=== PATIENT | female | born 1940 | race Caucasian/White ===

== ENCOUNTER → 2016-11-22 | Outpatient (CLI) | payer MEDICARE, BC ==
[2016-11-22 11:44] LABS: CH 30.7; CHCM 31.2; HCT 39.8 % (34.0-46.0); HDW 2.34; HGB 12.5 gm/dL (11.4-16.0); MCH 31.2 pg (25.0-35.0); MCHC 31.5 g/dL (31.0-37.0); MCV 98.9 fL (80.0-100.0); Mean Platelet Volume 7.9; RBC 4.02 m/uL (3.80-5.40); RDW 13.4 % (11.5-15.5); WBC 8.6 k/uL (3.8-10.6)
[2016-11-22 12:35] LABS: Calcium 9.4 mg/dL (8.4-10.2); Magnesium 2.1 mg/dL (1.6-2.3); Potassium 5.1 mmol/L (3.5-5.1); Uric Acid 6.7 mg/dL (3.7-7.4)
[2016-11-22 12:45] LABS: % Iron Saturation 28.1 % (20-50)
[2016-11-22 13:57] LABS: Appearance,Urine Clear (Clear); Bilirubin,Urine Negative (Negative); Glucose,Urine (UA) Negative (Negative); Ketones,Urine Negative (Negative); Leukocyte Esterase,Urine Negative (Negative); Nitrite,Urine Negative (Negative); Protein,Urine Negative (Negative); Specific Gravity,Urine 1.009 (1.001-1.035); UA Billing (MACRO vs. MICRO) CHEM; Urobilinogen,Urine <2.0 mg/dL (<2.0)
== END | disposition home or self-care (01) ==
LOC: LABT 10:59
PROVIDERS: ATTEND Nurse Practitioner Family
DX: N18.3 Chronic kidney disease, stage 3 (moderate) (principal); E21.3 Hyperparathyroidism, unspecified; E55.9 Vitamin D deficiency, unspecified; D64.9 Anemia, unspecified; N39.0 Urinary tract infection, site not specified; M10.9 Gout, unspecified
CPT/HCPCS: 36415; 80048; 81003; 82306; 82728; 83540; 83550; 83735; 83970; 84100; 84550; 85027; 85610

== ENCOUNTER → 2017-02-15 | Outpatient (CLI) | payer MEDICARE, BC ==
[2017-02-15 15:49] LABS: Appearance,Urine Clear (Clear); Bilirubin,Urine Negative (Negative); Glucose,Urine (UA) Negative (Negative); Ketones,Urine Negative (Negative); Leukocyte Esterase,Urine Negative (Negative); Nitrite,Urine Negative (Negative); Protein,Urine Negative (Negative); Specific Gravity,Urine 1.009 (1.001-1.035); UA Billing (MACRO vs. MICRO) CHEM; Urobilinogen,Urine <2.0 mg/dL (<2.0)
[2017-02-15 15:50] LABS: CH 30.5; CHCM 32.2; HCT 42.4 % (34.0-46.0); HDW 2.45; HGB 13.5 gm/dL (11.4-16.0); MCH 30.4 pg (25.0-35.0); MCHC 31.9 g/dL (31.0-37.0); MCV 95.3 fL (80.0-100.0); Mean Platelet Volume 6.8; RBC 4.45 m/uL (3.80-5.40); RDW 13.9 % (11.5-15.5); WBC 7.7 k/uL (3.8-10.6)
[2017-02-15 16:06] LABS: Calcium 9.4 mg/dL (8.4-10.2); Magnesium 2.4 mg/dL (1.6-2.3); Phosphorous 3.9 mg/dL (2.5-4.5); Potassium 4.9 mmol/L (3.5-5.1); Uric Acid 5.9 mg/dL (3.7-7.4)
== END | disposition home or self-care (01) ==
LOC: LABWHC1 15:21
PROVIDERS: ATTEND Nurse Practitioner Family
DX: N18.3 Chronic kidney disease, stage 3 (moderate) (principal); D64.9 Anemia, unspecified; E21.3 Hyperparathyroidism, unspecified; E55.9 Vitamin D deficiency, unspecified; N39.0 Urinary tract infection, site not specified; M10.9 Gout, unspecified
CPT/HCPCS: 36415; 80048; 81003; 82306; 82728; 83540; 83550; 83735; 83970; 84100; 84550; 85027

== ENCOUNTER → 2017-05-22 | Outpatient (CLI) | payer MEDICARE, BC ==
[2017-05-22 16:03] LABS: Appearance,Urine Clear (Clear); Bilirubin,Urine Negative (Negative); Glucose,Urine (UA) Negative (Negative); Ketones,Urine Negative (Negative); Leukocyte Esterase,Urine Trace (Negative); Mucus,Urine Rare /hpf; Nitrite,Urine Negative (Negative); Particle Count 1864; Protein,Urine Negative (Negative); RBC,Urine 1 /hpf (0-5); Specific Gravity,Urine 1.009 (1.001-1.035); Squamous Epithelial Cell,Urine 2 /hpf (0-4); UA Billing (MACRO vs. MICRO) MICRO; Urobilinogen,Urine <2.0 mg/dL (<2.0); WBC,Urine 1 /hpf (0-5)
[2017-05-22 16:05] LABS: CH 30.9; CHCM 32.1; HCT 38.2 % (34.0-46.0); HDW 2.29; HGB 12.3 gm/dL (11.4-16.0); MCH 31.1 pg (25.0-35.0); MCHC 32.2 g/dL (31.0-37.0); MCV 96.8 fL (80.0-100.0); Mean Platelet Volume 7.6; RBC 3.95 m/uL (3.80-5.40); RDW 14.6 % (11.5-15.5); WBC 6.7 k/uL (3.8-10.6)
[2017-05-22 16:15] LABS: Calcium 9.1 mg/dL (8.4-10.2); Magnesium 2.1 mg/dL (1.6-2.3); Phosphorous 3.6 mg/dL (2.5-4.5); Potassium 5.4 mmol/L (3.5-5.1); Uric Acid 7.1 mg/dL (3.7-7.4)
[2017-05-22 16:23] LABS: % Iron Saturation 25.3 % (20-50)
== END | disposition home or self-care (01) ==
LOC: LABWHC1 15:46
PROVIDERS: ATTEND Nurse Practitioner Family
DX: N18.3 Chronic kidney disease, stage 3 (moderate) (principal); D50.9 Iron deficiency anemia, unspecified; N25.81 Secondary hyperparathyroidism of renal origin; N39.0 Urinary tract infection, site not specified; M10.9 Gout, unspecified
CPT/HCPCS: 36415; 80048; 81001; 82306; 82728; 83540; 83550; 83735; 83970; 84100; 84550; 85027

== ENCOUNTER → 2017-09-04 | Outpatient (CLI) | payer MEDICARE, BC ==
[2017-09-04 16:06] LABS: CH 30.3; CHCM 30.5; HCT 38.7 % (34.0-46.0); HDW 2.21; Hypochromasia Slight; MCH 30.9 pg (25.0-35.0); MCHC 30.9 g/dL (31.0-37.0); MCV 99.7 fL (80.0-100.0); Macrocytosis Slight; Mean Platelet Volume 7.4; RBC 3.88 m/uL (3.80-5.40); RDW 14.9 % (11.5-15.5); WBC 8.6 k/uL (3.8-10.6)
[2017-09-04 16:14] LABS: Appearance,Urine Clear (Clear); Bacteria,Urine Occasional /hpf; Bilirubin,Urine Negative (Negative); Glucose,Urine (UA) Negative (Negative); Ketones,Urine Negative (Negative); Leukocyte Esterase,Urine Small (Negative); Mucus,Urine Rare /hpf; Nitrite,Urine Negative (Negative); Particle Count 1939; Protein,Urine Trace (Negative); RBC,Urine 1 /hpf (0-5); Specific Gravity,Urine 1.012 (1.001-1.035); Squamous Epithelial Cell,Urine 5 /hpf (0-4); UA Billing (MACRO vs. MICRO) MICRO; Urobilinogen,Urine <2.0 mg/dL (<2.0); WBC,Urine 2 /hpf (0-5)
[2017-09-04 16:22] LABS: Magnesium 2.2 mg/dL (1.6-2.3); Phosphorus 3.4 mg/dL (2.5-4.5); Potassium 5.2 mmol/L (3.5-5.1)
[2017-09-05 02:00] LABS: Iron Saturation 15.95 (12.00-45.00)
== END | disposition home or self-care (01) ==
LOC: LABWHC1 15:33
PROVIDERS: ATTEND Nurse Practitioner Family
DX: N39.0 Urinary tract infection, site not specified (principal); M10.9 Gout, unspecified; N18.3 Chronic kidney disease, stage 3 (moderate); D50.9 Iron deficiency anemia, unspecified; N25.81 Secondary hyperparathyroidism of renal origin; D63.1 Anemia in chronic kidney disease
CPT/HCPCS: 36415; 80048; 81001; 82306; 82728; 83540; 83550; 83735; 83970; 84100; 84550; 85027; 85610

== ENCOUNTER → 2018-01-28 | Outpatient (CLI) | payer MEDICARE, BC ==
[2018-01-28 12:20] LABS: Appearance,Urine Clear (Clear); Bilirubin,Urine Negative (Negative); Blood,Urine Negative (Negative); Color,Urine Light Yellow; Glucose,Urine (UA) Negative (Negative); Ketones,Urine Negative (Negative); Leukocyte Esterase,Urine Negative (Negative); Nitrite,Urine Negative (Negative); PH, Urine 5.5 (5.0-8.0); Protein,Urine Negative (Negative); Urobilinogen,Urine <2.0 mg/dL (<2.0)
[2018-01-28 12:26] LABS: HCT 38.5 % (34.0-46.0); HGB 11.9 gm/dL (11.4-16.0); Hypochromasia Slight; MCH 29.6 pg (25.0-35.0); MCHC 30.9 g/dL (31.0-37.0); Mean Platelet Volume 7.6; Platelet Count 236 k/uL (150-450); RBC 4.01 m/uL (3.80-5.40); RDW 14.3 % (11.5-15.5); WBC 7.6 k/uL (3.8-10.6)
[2018-01-28 12:53] LABS: Calcium 9.5 mg/dL (8.4-10.2); Magnesium 2.3 mg/dL (1.6-2.3); Phosphorus 3.9 mg/dL (2.5-4.5); Potassium 5.3 mmol/L (3.5-5.1); Uric Acid 6.5 mg/dL (3.7-7.4)
[2018-01-28 19:38] LABS: Iron Saturation 28.77 (12.00-45.00)
[2018-01-28 19:46] LABS: Vitamin D 25 Hydroxy 38.4 ng/mL (30.0-100.0)
[2018-01-28 20:16] LABS: Parathyroid Hormone Intact 84.6 pg/mL (14.0-72.0)
== END | disposition home or self-care (01) ==
LOC: LABWHC1 11:49
PROVIDERS: ATTEND Nurse Practitioner Family
DX: N39.0 Urinary tract infection, site not specified (principal); M10.9 Gout, unspecified; N18.3 Chronic kidney disease, stage 3 (moderate); E21.3 Hyperparathyroidism, unspecified; E55.9 Vitamin D deficiency, unspecified; D63.1 Anemia in chronic kidney disease
CPT/HCPCS: 36415; 80048; 81003; 82306; 82728; 83540; 83550; 83735; 83970; 84100; 84550; 85027

== ENCOUNTER → 2018-05-03 | Outpatient (CLI) | payer MEDICARE, BC ==
[2018-05-03 15:52] LABS: Calcium 9.1 mg/dL (8.4-10.2); Potassium 5.1 mmol/L (3.5-5.1)
== END | disposition home or self-care (01) ==
LOC: LABWHC1 14:32
PROVIDERS: ATTEND Nurse Practitioner Family
DX: N18.3 Chronic kidney disease, stage 3 (moderate) (principal)
CPT/HCPCS: 80048

== ENCOUNTER → 2018-07-24 | Outpatient (CLI) | payer MEDICARE, BC ==
[2018-07-24 12:09] LABS: HCT 39.5 % (34.0-46.0); HGB 12.2 gm/dL (11.4-16.0); Hypochromasia Slight; MCH 30.5 pg (25.0-35.0); MCV 98.6 fL (80.0-100.0); Mean Platelet Volume 7.1; Platelet Count 279 k/uL (150-450); RBC 4.01 m/uL (3.80-5.40); RDW 14.4 % (11.5-15.5); WBC 7.9 k/uL (3.8-10.6)
[2018-07-24 12:13] LABS: Appearance,Urine Cloudy (Clear); Bacteria,Urine Few /hpf; Bilirubin,Urine Negative (Negative); Blood,Urine Negative (Negative); Color,Urine Yellow; Glucose,Urine (UA) Negative (Negative); Ketones,Urine Negative (Negative); Leukocyte Esterase,Urine Trace (Negative); Mucus,Urine Rare /hpf; Nitrite,Urine Negative (Negative); PH, Urine 5.5 (5.0-8.0); Protein,Urine Trace (Negative); RBC,Urine 1 /hpf (0-5); Squamous Epithelial Cell,Urine 6 /hpf (0-4); Urobilinogen,Urine <2.0 mg/dL (<2.0); WBC,Urine 3 /hpf (0-5)
[2018-07-24 12:21] LABS: Calcium 9.4 mg/dL (8.4-10.2); Magnesium 2.1 mg/dL (1.6-2.3); Phosphorus 3.3 mg/dL (2.5-4.5); Potassium 5.2 mmol/L (3.5-5.1); Uric Acid 7.1 mg/dL (3.7-7.4)
[2018-07-24 17:04] LABS: Iron Saturation 21.21 (12.00-45.00)
[2018-07-24 17:13] LABS: Vitamin D 25 Hydroxy 52.4 ng/mL (30.0-100.0)
[2018-07-24 18:08] LABS: Parathyroid Hormone Intact 67.5 pg/mL (14.0-72.0)
== END | disposition home or self-care (01) ==
LOC: LABWHC1 11:04
PROVIDERS: ATTEND Nurse Practitioner Family
DX: N18.3 Chronic kidney disease, stage 3 (moderate) (principal); D63.1 Anemia in chronic kidney disease; D50.9 Iron deficiency anemia, unspecified; N25.81 Secondary hyperparathyroidism of renal origin; N39.0 Urinary tract infection, site not specified; M10.9 Gout, unspecified
CPT/HCPCS: 36415; 80048; 81001; 82306; 82728; 83540; 83550; 83735; 83970; 84100; 84550; 85027

== ENCOUNTER → 2018-11-12 | Outpatient (CLI) | payer MEDICARE, BC ==
[2018-11-12 15:31] LABS: INR 1.8 (<1.2)
[2018-11-12 20:44] LABS: Anion Gap 9.2 mmol/L (4.00-12.00); Carbon Dioxide 24.8 mmol/L (21.6-31.8); Potassium 5.3 mmol/L (3.5-5.5)
== END | disposition home or self-care (01) ==
LOC: LABWHC1 13:58
PROVIDERS: ATTEND Nurse Practitioner Family
DX: N18.4 Chronic kidney disease, stage 4 (severe) (principal)
CPT/HCPCS: 36415; 80048; 85610

== ENCOUNTER → 2018-11-21 | Outpatient (CLI) | payer MEDICARE, BC ==
[2018-11-21 23:45] LABS: Anion Gap 5.1 mmol/L (4.00-12.00); Calcium 9.2 mg/dL (8.7-10.3); Carbon Dioxide 27.9 mmol/L (21.6-31.8); Potassium 5.1 mmol/L (3.5-5.5)
== END | disposition home or self-care (01) ==
LOC: LABWHC1 15:28
PROVIDERS: ATTEND Nurse Practitioner Family
DX: N18.4 Chronic kidney disease, stage 4 (severe) (principal)
CPT/HCPCS: 36415; 80048

== ENCOUNTER → 2019-01-22 | Outpatient (CLI) | payer MEDICARE, BC ==
[2019-01-22 08:20] LABS: HCT 38.5 % (34.0-46.0); HGB 11.6 gm/dL (11.4-16.0); Hypochromasia Slight; MCH 29.1 pg (25.0-35.0); MCHC 30.2 g/dL (31.0-37.0); MCV 96.4 fL (80.0-100.0); Platelet Count 293 k/uL (150-450); RBC 3.99 m/uL (3.80-5.40); RDW 14.5 % (11.5-15.5); WBC 8.9 k/uL (3.8-10.6)
[2019-01-22 09:37] LABS: Appearance,Urine Cloudy (Clear); Bacteria,Urine Many /hpf; Bilirubin,Urine Negative (Negative); Blood,Urine Negative (Negative); Color,Urine Yellow; Glucose,Urine (UA) Negative (Negative); Hyaline Casts,Urine 2 /lpf (0-2); Ketones,Urine Negative (Negative); Leukocyte Esterase,Urine Small (Negative); Mucus,Urine Rare /hpf; Nitrite,Urine Negative (Negative); PH, Urine 5.5 (5.0-8.0); Protein,Urine Trace (Negative); RBC,Urine 2 /hpf (0-5); Specific Gravity,Urine 1.016 (1.001-1.035); Squamous Epithelial Cell,Urine 14 /hpf (0-4); Urobilinogen,Urine <2.0 mg/dL (<2.0); WBC,Urine 7 /hpf (0-5)
[2019-01-22 11:46] LABS: Iron Saturation 29.32 (12.00-45.00)
[2019-01-22 11:54] LABS: Vitamin D 25 Hydroxy 45.9 ng/mL (30.0-100.0)
[2019-01-22 12:12] LABS: Anion Gap 6.3 mmol/L (4.00-12.00); Calcium 9.6 mg/dL (8.7-10.3); Carbon Dioxide 27.7 mmol/L (21.6-31.8); Magnesium 2.4 mg/dL (1.5-2.4); Phosphorus 3.7 mg/dL (2.4-5.1); Potassium 5.2 mmol/L (3.5-5.5); Uric Acid 6.8 mg/dL (2.9-7.7)
[2019-01-22 14:36] LABS: Parathyroid Hormone Intact 65.9 pg/mL (14.0-72.0)
== END | disposition home or self-care (01) ==
LOC: LABWHC1 07:37
PROVIDERS: ATTEND Nurse Practitioner Family
DX: N39.0 Urinary tract infection, site not specified (principal); M10.9 Gout, unspecified; N25.81 Secondary hyperparathyroidism of renal origin; E83.39 Other disorders of phosphorus metabolism; N18.4 Chronic kidney disease, stage 4 (severe); D50.9 Iron deficiency anemia, unspecified
CPT/HCPCS: 36415; 80048; 81001; 82306; 82728; 83540; 83550; 83735; 83970; 84100; 84550; 85027

== ENCOUNTER → 2019-03-20 | Outpatient (CLI) | payer MEDICARE, BC ==
--- NOTE | 2019-03-20 13:50 | CT ---
EXAMINATION TYPE: CT chest wo con DATE OF EXAM: 03/20/2019 COMPARISON: Chest x-ray from 3 days ago. HISTORY: Abnormal chest x-ray CT DLP: 272.7 mGycm. Automated Exposure Control for Dose Reduction was Utilized. TECHNIQUE: CT scan of the thorax is performed without IV contrast. FINDINGS: LUNGS: There is background moderate underlying emphysematous change. Corresponding to x-ray abnormali ty there is suspicious right lower lobe mass measuring 4.2 x 2.6 cm axial image 34 posteriorly. Small area of linear scarring or atelectasis in the lingula is present. No pleural effusion or pneumothora x is noted bilaterally. Slightly elevated left hemidiaphragm is seen. MEDIASTINUM: Lack of IV contrast is noted to limit evaluation for mediastinal and especially hilar ad enopathy. There are no definitive greater than 1 cm hilar or mediastinal lymph nodes. Prominent but s ubcentimeter paratracheal lymph nodes axial image 17 are noted. Heart size is upper limits of normal. Tiny pericardial effusion is seen. OTHER: Low dense thickening to left adrenal gland favors lipid rich hyperplasia. There is partial vis ualization of stent graft in the abdominal aorta. There is cortical thinning in both kidneys with sim ple prior 4.0 cm cyst posteriorly mid to lower pole level left kidney axial image 53. Demineralizatio n is present with slight scoliotic curvature. Moderate to severe multilevel spurring in the spine is present.. IMPRESSION: Suspicious posterior right lower lobe mass worrisome for neoplasm. Consider PET/CT or dillon ging guided biopsy for tissue confirmation. No suspicious acute infiltrate identified on current stud y.
== END | disposition home or self-care (01) ==
LOC: RADCTMAIN 12:43
PROVIDERS: ATTEND Internal Medicine
DX: R91.8 Other nonspecific abnormal finding of lung field (principal); J18.1 Lobar pneumonia, unspecified organism
CPT/HCPCS: 71250

== ENCOUNTER → 2019-03-22 | Outpatient (CLI) | payer MEDICARE, BC ==
--- NOTE | 2019-03-24 08:01 | PE ---
EXAMINATION TYPE: PET CT fusion skull to thigh DATE OF EXAM: 03/22/2019 COMPARISON: EXAMINATION TYPE: PET CT fusion skull to thigh DATE OF EXAM: 03/22/2019 COMPARISON: Chest CT March 20, 2019. HISTORY: Solitary pulmonary nodule, abnormal CT TECHNIQUE: Following the intravenous administration of 11.1 mCi of F-18 FDG, whole body images are p erformed from the skull base to the midthigh. Images are reviewed on the computer in the coronal, ax ial, and sagittal planes. Reconstructed rotating images are created on independent workstation and r eviewed on the computer. A noncontrast CT is performed in conjunction with the PET scan. SCAN: Initial Scan FINDINGS: SKULL BASE AND NECK: No areas of suspicious hypermetabolic uptake. CHEST, MEDIASTINUM, AND HILAR REGION: Background moderate emphysematous change is redemonstrated. The re is redemonstration of posterior right lower lobe mass measuring 4.0 x 2.3 cm current study image 9 6, max SUV is 10.24. No additional areas of suspicious hypermetabolic uptake identified bilaterally. ABDOMEN AND PELVIS: No areas of suspicious hypermetabolic uptake are seen. OSSEOUS STRUCTURES: No areas of suspicious hypermetabolic uptake. OTHER CT: Moderate calcified plaque of the aorta extends into branch vessels. Enlarged pulmonary michelle vivian are present, CT findings consistent with underlying pulmonary artery hypertension. Coronary michelle ry calcification is present which is noted marker for underlying coronary artery disease. There is aortobiiliac stent graft through [place] AAA. There is significant colonic diverticulosis mos t prominent at level of sigmoid colon. There is multilevel facet arthropathy in the mid to lower lumbar spine. There is vacuum disc phenomen on with moderate disc space narrowing L5-S1 level. IMPRESSION: Primary right lower lobe neoplasm. No suspicious adenopathy or metastatic disease.
== END | disposition home or self-care (01) ==
LOC: RADPETMAIN 12:42
PROVIDERS: ATTEND Internal Medicine
DX: C34.31 Malignant neoplasm of lower lobe, right bronchus or lung (principal)
CPT/HCPCS: 78815; A9552

== ENCOUNTER → 2019-04-02 | Day surgery (SDC) | payer MEDICARE, BC ==
[~2019-04-02] MED LIST: ALPRAZolam 0.25 MG TAB PO ONE
[2019-04-02 08:35] VITALS: TEMP 97.7
[2019-04-02 08:35] LABS: Mean Platelet Volume 7.9; Platelet Count 276 k/uL (150-450)
[2019-04-02 08:43] LABS: Prothrombin Time 10.8 sec (9.0-12.0)
[2019-04-02 09:27] VITALS: RESP 16
--- NOTE | 2019-04-02 10:05 | XR ---
EXAMINATION TYPE: XR chest 1V portable DATE OF EXAM: 04/02/2019 Comparison: 03/21/2010 Clinical History: 79-year-old female post lung biopsy Findings: Heart normal size. Atherosclerotic calcifications. Mild diffuse interstitial prominence and mild hype rinflation. No appreciable pneumothorax. Some strandy atelectasis in the lower lungs. Known posterior right basilar mass. Impression: COPD and known posterior right basilar mass. No appreciable pneumothorax.
--- NOTE | 2019-04-02 12:30 | CT ---
EXAMINATION TYPE: CT biopsy lung RT DATE OF EXAM: 04/02/2019 HISTORY: EXAMINATION TYPE: CT biopsy lung RT DATE OF EXAM: 04/02/2019 HISTORY: EXAMINATION TYPE: CT biopsy lung RT DATE OF EXAM: 04/02/2019 HISTORY: Lung mass right lower lobe, abnormal PET/CT COMPARISON: CT 03/20/2019, PET/CT 03/22/2019 Maximal barrier technique was utilized. The skin overlying a suitable path to the lesion was localiz ed using CT and the overlying skin was prepped and draped. Lidocaine used for local anesthesia. A s kin adrianna made with a scalpel. Using CT guidance, access was gained to the lesion with a 20-gauge cor e needle coaxially through a 19-gauge guide. Core specimen submitted to cytology. Following the proce dure no immediate complications. The patient is discharged in stable condition. Hemostasis achieve d. IMPRESSION: SUCCESSFUL CT GUIDED CORE BIOPSY right lower lobe lung mass. PATHOLOGY PENDING. THIS PROCEDURE WAS PERFORMED BY THE UNDERSIGNED.
--- NOTE | 2019-04-02 12:32 | XR ---
EXAMINATION TYPE: XR chest 1V portable DATE OF EXAM: 04/02/2019 COMPARISON: Prior chest x-ray same dated earlier time HISTORY: Status post lung biopsy TECHNIQUE: Single frontal view of the chest is obtained. FINDINGS: No interval change. IMPRESSION: No evident application status post lung biopsy.
[2019-04-02 16:03] VITALS: BP 136/72; PULSE 85
== END ==
LOC: RADPROMAIN 07:54
PROVIDERS: ATTEND Internal Medicine
DX: C34.31 Malignant neoplasm of lower lobe, right bronchus or lung (principal); J44.9 Chronic obstructive pulmonary disease, unspecified
CPT/HCPCS: 71045; 77012; 85049; 85610; 88305; 88341; 88342

== ENCOUNTER → 2019-04-21 | Outpatient (CLI) | payer MEDICARE, BC ==
[2019-04-21 08:25] LABS: HCT 37.6 % (34.0-46.0); HGB 11.6 gm/dL (11.4-16.0); MCH 30.1 pg (25.0-35.0); MCHC 30.8 g/dL (31.0-37.0); MCV 97.6 fL (80.0-100.0); Platelet Count 283 k/uL (150-450); RBC 3.86 m/uL (3.80-5.40); WBC 6.9 k/uL (3.8-10.6)
[2019-04-21 16:09] LABS: Iron Saturation 24.71 (12.00-45.00)
[2019-04-21 16:17] LABS: African American GFR (CKD) 21.2 (60.0-200.0); Anion Gap 8.2 mmol/L (4.00-12.00); BUN/Creat Ratio 25.83 Ratio (12.00-20.00); Calcium 9.6 mg/dL (8.7-10.3); Carbon Dioxide 24.8 mmol/L (21.6-31.8); Magnesium 2.4 mg/dL (1.5-2.4); Potassium 4.8 mmol/L (3.5-5.5); Uric Acid 7.5 mg/dL (2.9-7.7)
[2019-04-21 16:59] LABS: Parathyroid Hormone Intact 48.8 pg/mL (14.0-72.0)
[2019-04-21 18:18] LABS: Appearance,Urine Cloudy (Clear); Bacteria,Urine Many /hpf; Bilirubin,Urine Negative (Negative); Blood,Urine Negative (Negative); Color,Urine Yellow; Glucose,Urine (UA) Negative (Negative); Hyaline Casts,Urine 5 /lpf (0-2); Ketones,Urine Negative (Negative); Leukocyte Esterase,Urine Small (Negative); Mucus,Urine Rare /hpf; Nitrite,Urine Negative (Negative); PH, Urine 5.5 (5.0-8.0); Protein,Urine Trace (Negative); RBC,Urine 1 /hpf (0-5); Specific Gravity,Urine 1.016 (1.001-1.035); Squamous Epithelial Cell,Urine 4 /hpf (0-4); Urobilinogen,Urine <2.0 mg/dL (<2.0); WBC,Urine 6 /hpf (0-5)
== END | disposition home or self-care (01) ==
LOC: LABWHC1 07:40
PROVIDERS: ATTEND Nurse Practitioner Family
DX: N18.4 Chronic kidney disease, stage 4 (severe) (principal); D50.9 Iron deficiency anemia, unspecified; N25.81 Secondary hyperparathyroidism of renal origin; E55.9 Vitamin D deficiency, unspecified; N39.0 Urinary tract infection, site not specified; M10.9 Gout, unspecified
CPT/HCPCS: 36415; 80048; 81001; 82306; 82728; 83540; 83550; 83735; 83970; 84550; 85027; 87086

== ENCOUNTER → 2019-04-23 | Outpatient (CLI) | payer MEDICARE, BC | END | disposition home or self-care (01) | LOC: LABPAT 15:21 | PROVIDERS: ATTEND Thoracic Surgery (Cardiothoracic Vascular Surgery) | DX: Z01.818 Encounter for other preprocedural examination (principal); C34.31 Malignant neoplasm of lower lobe, right bronchus or lung | CPT/HCPCS: 93005 ==

== ENCOUNTER 2019-05-01 07:12 | Inpatient (IN) | payer MEDICARE, BC ==
[2019-04-25 13:18] VITALS: BMI 29.2
[~2019-05-01 07:12] MED LIST changes: -ALPRAZolam 0.25 MG TAB PO ONE; +DEXAMETHASONE SOD PHOSPHATE 10 MG/ML 1 ML VIAL IV ONE; +LACTATED RINGERS 1,000 ML IV SCH; +ONDANSETRON 4 MG/2 ML VIAL IVP ONE
[2019-05-01] MEDS ORDERED: LIDOCAINE 1% 20 ML VIAL (10MG/ML) FOR IV START INTRADERMA ONE (07:54)
[2019-05-01 08:06] LABS: INR 1.3 (<1.2); Prothrombin Time 13.4 sec (9.0-12.0)
[2019-05-01] MEDS ORDERED: MIDAZOLAM (PF) 2 MG/2 ML VIAL IVP ONE (08:21)
[2019-05-01] MEDS ORDERED: ALBUTEROL NEBULIZED 2.5 MG/3 ML INHALATION STA (08:34)
--- NOTE | 2019-05-01 09:25 | P.ANPRN ---
Procedure Note - Anesthesia - Invasive Line Left Arterial Line Time Out Performed: Yes Date of Procedure: 05/01/19 Time of Procedure: 08:07 Location of Patient Procedure: PreOp Preparation: Sterile Prep, Sterile Dressing Arterial Line Location: Radial Ultrasound Used: Yes Needle Guage: 20 Narrative: Arterial line placement per sterile protocol utilized.
[2019-05-01] MEDS ORDERED: ePHEDrine SULFATE/0.9% NACL/PF 50 MG/5 ML SYRINGE IV ONE (09:51)
[2019-05-01] MEDS ORDERED: PROPOFOL 10 MG/ML 20 ML VIAL IV ONE (09:51)
[2019-05-01] MEDS ORDERED: MIDAZOLAM 2 MG/2 ML VIAL ONE (09:51)
[2019-05-01] MEDS ORDERED: LIDOCAINE 1% INJ 10MG/ML (20 ML MDV) ONE (09:51)
[2019-05-01] MEDS ORDERED: GLYCOPYRROLATE 0.2 MG/ML 2 ML VIAL ONE (09:51)
[2019-05-01] MEDS ORDERED: CISATRACURIUM 2 MG/ML 5 ML VIAL IV ONE (09:51)
[2019-05-01] MEDS ORDERED: NEOSTIGMINE 1 MG/ML 10 ML VIAL ONE (09:51)
[2019-05-01] MEDS ORDERED: fentaNYL (PF) 50 MCG/ML 2 ML AMP ONE (09:51)
[2019-05-01] MEDS ORDERED: BUPIVACAINE (PF) 0.5% 30 ML VIAL SQ ONE ×2 (10:22)
--- NOTE | 2019-05-01 11:20 | P.OP ---
Date of Procedure: 05/01/19 Preoperative Diagnosis: Right lower lobe carcinoma Postoperative Diagnosis: Same Procedure(s) Performed: Extended wedge resection right lower lobe via right thoracoscopic approach Anesthesia: CECILIO Surgeon: Be Paz Promotion Officer #1: Alok Arenas Estimated Blood Loss (ml): 30 IV fluids (ml): 300 Urine output (ml): 0 Pathology: other (Wedge resection right lower lobe for permanent section, R9 lymph node) Condition: stable Disposition: PACU Indications for Procedure: 79-year-old female with 4 cm mass in the right lower lobe discovered during workup for complaints of cough. Due to patient's age and comorbidities she was not considered an ideal candidate for lobectomy. She was offered minimally invasive lobectomy, wedge resection, nonoperative management and opted for wedge resection. Operative Findings: Incomplete fissures, large mass in the right lower lobe. Description of Procedure: The patient was brought to the operating room, placed supine on the operating table, anesthetized and intubated with a double-lumen endotracheal tube. Tube was positioned with fiberoptic bronchoscopy and secured. Patient was turned in left lateral decubitus position and sterilely prepped and draped after appropriate positioning for thoracoscopy. 3 incisions were made in the right chest and the video thoracoscope was introduced through one. Single lung ventilation and been initiated. The chest was explored. The tumor was not immediately evident. Lung compliance was less than optimal. The fissures were only partially developed. The inferior pulmonary ligament was taken down up to the inferior pulmonary vein. Take down was continued hued somewhat further posteriorly. A anthracotic level IX lymph node was resected. The fissure between the middle lobe and the lower lobe was completed with several firings of Endo EDWIN stapler. We now resected the adjacent tissue in the right lower lobe with multiple firings of Endo EDWIN stapler. On removing the specimen the tumor was not evident. After further exploration we clearly identified the tumor right next to her immediate staple line. The deeper staple line was now taken. This put the staple line immediately adjacent to the inferior pulmonary vein. After multiple firings of Endo EDWIN stapler the mass was resected out. This involved resecting the majority of the right lower lobe. This was placed in an Endo Catch bag and brought out onto the field. Mass appeared to been resected with grossly negative margins. The previous specimen was oriented to the specimen and sent to pathology for permanent section. A 28-Thai chest tube was placed through separate stab incision and positioned posterior apically. Suture this was used to secure the chest tube. The lung was reinflated under thoracoscopic visualization and then the thoracoscope was removed. Rib blocks were performed at the level of the incisions and the incisions were closed with layers of Vicryl suture. Dry sterile dressings were applied the patient was extubated and transferred to recovery in stable condition. Dr. Be Paz dictating an operative Sweta Dixon. Please forward copy Dr. Petersen.
[2019-05-01] MEDS: HYDROmorphone 0.5 MG/0.5 ML SYRINGE IVP PRN ×4 (11:53→12:25)
--- NOTE | 2019-05-01 12:09 | XR ---
EXAMINATION TYPE: XR chest 1V portable DATE OF EXAM: 05/01/2019 COMPARISON: 04/02/19 HISTORY: post vats TECHNIQUE: Single frontal view of the chest is obtained. FINDINGS: Low volume of the lungs with patchy bibasilar reticular opacities. No residual pneumothora x seen. Right hilar prominence is noted. Right thoracostomy tube present. The cardiac silhouette si ze is upper limits of normal. The osseous structures are intact. Generalized osseous demineralizati on. Patients chin obscures the lung apices. IMPRESSION: Post VATS changes with right thoracostomy tube and bibasilar atelectasis. No residual pn eumothorax seen.
[2019-05-01] MEDS ORDERED: DEXTROSE 5%-0.45% NACL 1,000 ML IV SCH (12:39)
[2019-05-01] MEDS ORDERED: IPRATROPIUM-ALBUTEROL 3 ML NEB IH PRN (12:39)
[2019-05-01] MEDS ORDERED: ONDANSETRON 4 MG/2 ML VIAL IVP PRN (12:39)
[2019-05-01] MEDS ORDERED: ACETAMINOPHEN TAB 500 MG TAB PO PRN (12:39)
[2019-05-01] MEDS: IPRATROPIUM-ALBUTEROL 3 ML NEB IH SCH ×3 (13:06→22:16)
[2019-05-01] MEDS: traMADol 50 MG TAB PO SCH ×2 (13:28→18:00)
--- NOTE | 2019-05-01 15:15 | P.CNPUL ---
History of Present Illness Consult date: 05/01/19 Reason for consult: lung mass History of present illness: 79-year-old female patient with a 4 cm mass in the right lower lobe discovered during workup for chronic cough. The patient is an ex-smoker. The patient has COPD with an FEV1 of 54% of predicted. Computed tomography scan of the chest that was done on outpatient basis showed a right lower lobe mass abutting the pleural surface and diagnosis of non-small cell lung cancer was established by fine-needle aspirate that was done preoperatively. For that reason the patient was referred for lobectomy. The patient underwent an extensive wedge resection of the right lower lobe via thoracoscopic approach with removal of a are benign station lymph nodes. The patient is currently postop. The patient had a chest x-ray that showed post VATS changes with the right sided chest tube and right basilar atelectasis. No evidence of any pneumothorax. No evidence of any air leak to the chest tube. Output from the chest tube is been only 80 mL since arrival from the operating room. The patient also has hypertension and abdominal aortic aneurysm in addition to chronic pain. Review of Systems Constitutional: Denies weight loss, denies fatigue, no night sweats, no fever, no chills. Cardiovascular: Denies palpitations, denied chest pain or chest pressure, denies any edema. GI: Denies nausea vomiting abdominal pain diarrhea or constipation. Genitourinary: Denies dysuria, frequency, or urgency. Neurologic: Denies weakness, confusion, dizziness, or numbness. Musculoskeletal: Denies weakness arthralgia or myalgia Skin:Occasional blisters noted on the left lower extremity calf region. Endocrine: No polydipsia, no polyuria, no heat or cold sensitivity. Pulmonary: as noted in HPI.no cough no wheezing no shortness of breath at rest she does have some dyspnea on exertion. 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 Psychiatric: No symptoms of depression Screening Past Medical History Past Medical History: Cancer, Heart Failure, COPD, Hyperlipidemia, Hypertension, Osteoarthritis (OA), Renal Disease, Thyroid Disorder Additional Past Medical History / Comment(s): Non-small cell lung cancer of the right lower lobe, COPD, abdominal aortic aneurysm with previous endovascular stent grafting, osteoporosis, macular degeneration, peripheral vascular disease with arterial clot involving the left arm back in 2011, secondary hyperparathyroidism, chronic kidney disease with a baseline creatinine of around 2.4, gallops History of Any Multi-Drug Resistant Organisms: None Reported Past Surgical History: Tubal Ligation Additional Past Surgical History / Comment(s): Hx blood clot left arm 2011 - surgery to remove clot-has endurant abdominal stent graft 02/27/2015. [place] Cataracts. Past Anesthesia/Blood Transfusion Reactions: Previous Problems w/ Anesthesia, Family History of Problems w/ Anesthesia Additional Past Anesthesia/Blood Transfusion Reaction / Comment(s): Slow to Awaken, patient and daughter. Smoking Status: Former smoker - Past Family History Father Family Medical History: COPD, Diabetes Mellitus, Myocardial Infarction ([place]) Mother Additional Family Medical History / Comment(s): at age 31 - cause unknown Brother(s) Additional Family Medical History / Comment(s): states kidney and heart history Sister(s) Family Medical History: Myocardial Infarction ([place]) Additional Family Medical History / Comment(s): dialysis Medications and Allergies Home Medications Medication Instructions Recorded Confirmed Type Allopurinol [Zyloprim] 100 mg PO DAILY 05/26/16 05/01/19 History Furosemide [Lasix] 40 mg PO MOWEFR 05/26/16 05/01/19 History HYDROcodone/APAP 7.5-325MG [[place] 1 tab PO HS 05/26/16 05/01/19 History 7.5-325] Telmisartan [Micardis] 40 mg PO DAILY 05/26/16 05/01/19 History Warfarin [Coumadin] 5 mg PO MOWEFR 05/26/16 05/01/19 History amLODIPine [Norvasc] 5 mg PO DAILY 05/26/16 05/01/19 History Calcitriol [Rocaltrol] 0.25 mcg PO MOFR 03/27/19 05/01/19 History Cholecalciferol (Vitamin D3) 4,000 unit PO DAILY 03/27/19 05/01/19 History [Vitamin D3] Ipratropium-Albuterol Nebulize 3 ml INHALATION RT-QID 03/27/19 05/01/19 History [Duoneb 0.5 mg-3 mg/3 ml Soln] Vit C/E/Zn/Coppr/Lutein/Zeaxan 1 cap PO BID 04/02/19 05/01/19 History [Preservision Areds 2 Softgel] Warfarin [Coumadin] 2.5 mg PO SUTUTHSA 04/25/19 05/01/19 History Allergies Allergy/AdvReac Type Severity Reaction Status Date / Time No Known Allergies Allergy Verified 05/01/19 12:24 Physical Exam Vitals: Vital Signs Temp Pulse Pulse Resp BP BP BP 05/01/19 13:18 96 05/01/19 13:07 92 05/01/19 12:30 78 16 131/62 05/01/19 12:15 74 16 149/77 143/60 05/01/19 12:00 63 16 163/70 159/76 05/01/19 11:45 76 16 138/67 129/74 05/01/19 11:27 97 F L 83 14 140/61 135/55 05/01/19 09:05 84 05/01/19 08:55 84 05/01/19 07:52 97.1 F L 92 18 144/60 129/61 Pulse Ox 05/01/19 13:18 05/01/19 13:07 05/01/19 12:30 100 05/01/19 12:15 100 05/01/19 12:00 99 05/01/19 11:45 100 05/01/19 11:27 98 05/01/19 09:05 05/01/19 08:55 05/01/19 07:52 96 Intake and Output 05/01/19 05/01/19 05/01/19 06:59 14:59 22:59 Intake Total 850 Output Total 130 Balance 720 Intake: IV 850 Output: Drainage 80 Right 80 Estimated Blood Loss 50 PARAM Gen. appearance, comfortable likely distress awake and alert HENT: Anicteric sclerae, pink and moist conjunctivae. Extraocular movements intact, pupils are reactive to light they are round and equal. External inspection of ears and nose showed normal mucosa. Oral mucosa, soft and hard palate tongue and posterior pharynx are intact. Neck: Supple no neck masses, no JVD, no thyroid enlargement, no adenopathy. Lungs: Symmetrical expansion, diminished breath sounds at the bases ,no crackles or rhonchi or wheezes. The patient has a right-sided chest tube in place. Breath sounds are slightly diminished in the right lung compared to left. Surgical wound site is dry clean and intact. CVS: Regular rate and rhythm, normal S1 and S2, no gallops, no murmur, no rubs. Abdomen: Soft, nontender, no megaly, no rebound, no guarding, positive bowel sounds. Extremities: No clubbing,, No edema, no cyanosis. Good pulses bilaterally. Musculoskeletal: Muscle strength and tone normal. Neurologic: Alert and oriented 3, normal affect, no focal neurologic deficits. Psychiatric: Normal mood affect and mental status examination. Results - Laboratory Findings PT/INR, D-dimer PT 13.4 sec (9.0-12.0) H 05/01/19 07:49 INR 1.3 (<1.2) H 05/01/19 07:49 Abnormal lab findings: Abnormal Labs 05/01/19 07:49 PT 13.4 H INR 1.3 H Assessment and Plan Plan: 1 non-small cell lung cancer of the right lower lobe as the patient has a right lower lobe 4 cm mass. The patient underwent a wedge resection of the lung mass along with resection of the station are 9 lymph node. Patient is postop day #0. Chest tube is in place. Chest x-ray showing what expansion of the right lung without evidence of any pneumothorax. 2 COPD with an FEV1 of 54% of predicted at baseline 3 chronic kidney disease 4 secondary hyperparathyroidism 5 hypertension 6 gout 7 abdominal aortic aneurysm with previous endovascular stent grafting 8 peripheral vascular disease 9 chronic pain syndrome Plan Pain control. Encouraged use of incentive spirometer. Daily chest x-ray. Monitor the output from the chest tube. Awaiting final pathology. We'll continue to follow.
[2019-05-01] MEDS: HEPARIN SODIUM,PORCINE 5,000 UNIT/ML 1 ML VIAL SQ SCH (15:53)
[2019-05-01] MEDS ORDERED: HYDROcodone/APAP 7.5-325MG 1 EACH TAB PO PRN (18:53)
[2019-05-02] MEDS: HEPARIN SODIUM,PORCINE 5,000 UNIT/ML 1 ML VIAL SQ SCH ×4 (00:40→23:06)
[2019-05-02] MEDS: HYDROcodone/APAP 7.5-325MG 1 EACH TAB PO PRN ×3 (00:41→08:40)
[2019-05-02] MEDS: VIT A,C & E-LUTEIN-MINERALS 1 EACH TAB PO SCH ×3 (00:45→20:05)
[2019-05-02] MEDS: PANTOPRAZOLE 40 MG TABLET PO SCH (06:28)
[2019-05-02 06:50] LABS: Basophils % (A) 0 %; Eosinophils % (A) 0 %; HCT 34.9 % (34.0-46.0); HGB 10.7 gm/dL (11.4-16.0); Hypochromasia Moderate; Lymphocytes # (A) 0.8 k/uL (1.0-4.8); Lymphocytes % (A) 6 %; MCH 30.1 pg (25.0-35.0); MCHC 30.6 g/dL (31.0-37.0); MCV 98.2 fL (80.0-100.0); Mean Platelet Volume 7.1; Monocytes # (A) 0.5 k/uL (0-1.0); Monocytes % (A) 4 %; Neutrophils # (A) 10.5 k/uL (1.3-7.7); Neutrophils % (A) 88 %; Platelet Count 247 k/uL (150-450); RBC 3.55 m/uL (3.80-5.40); RDW 13.9 % (11.5-15.5); WBC 11.9 k/uL (3.8-10.6)
[2019-05-02 06:51] LABS: Calcium 8.8 mg/dL (8.4-10.2); Potassium 5.4 mmol/L (3.5-5.1)
--- NOTE | 2019-05-02 08:13 | XR ---
EXAMINATION TYPE: XR chest 1V DATE OF EXAM: 05/02/2019 COMPARISON: 05/01/2019 HISTORY: Follow-up post VATS. Tube placement. TECHNIQUE: Single frontal view of the chest is obtained. FINDINGS: Right thoracostomy tube now projects over the mediastinum. No residual pneumothorax is see n. There are low lung volumes. There is increased prominence of the interstitium, also partially rela ingrid to low lung volumes. Cardiomediastinal silhouette is rotated given the relative appearance of enl argement. Very trace pleural effusions are suspected. Diffuse osseous demineralization is seen. IMPRESSION: Increasing interstitial prominence that may represent fluid overload or be artifactual s econdary to low lung volumes and crowding of the pulmonary vasculature. Right thoracostomy tube now p rojects over the mediastinum. No residual pneumothorax.
[2019-05-02] MEDS: IPRATROPIUM-ALBUTEROL 3 ML NEB IH SCH ×4 (08:31→19:25)
[2019-05-02] MEDS: LOSARTAN 50 MG TAB PO SCH (08:39)
[2019-05-02] MEDS: amLODIPine 5 MG TAB PO SCH (08:39)
[2019-05-02] MEDS: CHOLECALCIFEROL 1,000 UNIT TAB PO SCH (08:39)
[2019-05-02] MEDS: CALCITRIOL 0.25 MCG CAP PO SCH (08:39)
[2019-05-02] MEDS: FUROSEMIDE 40 MG TAB PO SCH (08:39)
[2019-05-02] MEDS: ALLOPURINOL 100 MG TAB PO SCH (08:39)
--- NOTE | 2019-05-02 10:19 | XR ---
EXAMINATION TYPE: XR chest 2V DATE OF EXAM: 05/02/2019 COMPARISON: 05/02/2019 05/02/2019 HISTORY: Postoperative right lower lobe wedge resection. Follow-up exam. TECHNIQUE: Frontal and lateral views of the chest are obtained. FINDINGS: There is improved aeration of the lungs with better inspiration on the current exam. Wedge -shaped opacity at the medial right lung base is likely postsurgical secondary to the known recent we dge resection. Bibasilar opacities do remain, right greater than left. Thoracostomy tube has been rem rachel in the interim without residual pneumothorax. Postoperative changes of the upper abdomen are not ed. Diffuse osseous demineralization is present. Cardiomediastinal silhouette is stable. IMPRESSION: 1. Interval removal of the right thoracostomy tube with no residual pneumothorax. 2. Improved inspiration with residual bibasilar opacities, right greater than left. 3. Wedge like consolidation at the right lung base and cardiophrenic angle is likely postoperative ch sandrita from the right lower lobe wedge resection.
--- NOTE | 2019-05-02 13:47 | P.PN ---
Subjective Progress Note Date: 05/02/19 Principal diagnosis: Right lower lobe non-small cell carcinoma, past medical history significant for chronic obstructive pulmonary disease with a preoperative FEV1 54% of predicted value, hypertension, hyperlipidemia, thyroid disorder, congestive heart failure, osteoarthritis, history of abdominal aortic aneurysm with previous endovascular stent graft placement, history of peripheral vascular disease with arterial clot involving the left arm in 2012, and chronic kidney disease stage IV. POD #1 extended wedge resection of right lower lobe via right thoracoscopic approach. The patient is currently sitting up to bedside chair on the 3 cells cardiac stepdown unit. She is complaining of surgical type pain to her right chest tube insertion site. Denies any complaints of shortness of breath, although she is on 5 L nasal cannula with oxygen saturation 97%. She has a poor effort on her incentive spirometry and is pulling less than 500 mL. Her daughter is at her bedside and has been updated on the care of her mother. A chest x-ray was completed this morning which shows no residual pneumothorax. Right pleural chest tube remains in place to water seal. No air leak is present. Draining thin serosanguineous drainage. Objective - Vital Signs Vital signs: Vital Signs Temp 98 F 05/02/19 04:00 Pulse 88 05/02/19 08:40 Resp 16 05/02/19 08:00 BP 99/51 05/02/19 08:00 Pulse Ox 90 L 05/02/19 08:31 Intake & Output 05/01/19 05/02/19 05/02/19 18:59 06:59 18:59 Intake Total 1090 1100 Output Total 130 870 Balance 960 230 Weight 82.5 kg Intake: IV 850 Intake, IV Titration 900 Amount Lactated Ringers 1,000 ml 700 @ 20 mls/hr IV .Q24H [facility] Rx#:[id number] ceFAZolin 2 gm In Sodium 200 Chloride 0.9% 50 ml @ 100 mls/hr IVPB Q8HR [facility] Rx# :[id number] Oral 240 200 Output: Drainage 80 70 Right 80 70 Urine 800 Estimated Blood Loss 50 Other: Voiding Method Bedpan - Constitutional General appearance: Present: cooperative, no acute distress, obese - Respiratory Details: Lung sounds diminished bilateral bases right greater than left. Respirations are symmetrical and nonlabored. Oxygen saturation are 97% on 5 L nasal cannula. Achieving less than 500 mL on her incentive spirometry. Right pleural chest tube remains in place to water seal. No air leak is present. Draining thin serosanguineous drainage. - Cardiovascular Details: Regular rhythm and rate. S1 and S2 present, negative for S3, gallop or murmur. Remote telemetry showing normal sinus rhythm heart rate 85. No edema present. Knee-high sequential compression devices in place to her bilateral lower extremities. - Gastrointestinal Gastrointestinal Comment(s): Abdomen is soft, nontender and nondistended. Hypoactive bowel sounds present in all 4 abdominal quadrants. Tolerating oral intake. No guarding or rigidity. No organomegaly. - Genitourinary Genitourinary Comment(s): Voiding clear yellow urine. - Integumentary Integumentary Comment(s): Skin is warm and dry. No clubbing or cyanosis is present. Right chest in cisions are clean, dry and approximated. No drainage or redness is present. Dressings are clean, dry and intact. - Neurologic Neurologic: Present: CNII-XII intact - Musculoskeletal Musculoskeletal: Present: gait normal, generalized weakness, strength equal bilaterally - Psychiatric Psychiatric: Present: A&O x's 3, appropriate affect, intact judgment & insight - Allied health notes Allied health notes reviewed: nursing - Labs CBC & Chem 7: 05/02/19 06:29 05/02/19 06:29 Labs: Abnormal Lab Results - Last 24 Hours (Table) 05/02/19 05/02/19 Range/Units 06:29 06:29 WBC 11.9 H (3.8-10.6) k/uL RBC 3.55 L (3.80-5.40) m/uL Hgb 10.7 L (11.4-16.0) gm/dL MCHC 30.6 L (31.0-37.0) g/dL Neutrophils # 10.5 H (1.3-7.7) k/uL Lymphocytes # 0.8 L (1.0-4.8) k/uL Potassium 5.4 H (3.5-5.1) mmol/L BUN 41 H (7-17) mg/dL Creatinine 1.70 H (0.52-1.04) mg/dL Glucose 119 H (74-99) mg/dL - Imaging and Cardiology Chest x-ray: report reviewed, image reviewed Assessment and Plan Assessment: 1. Right lower lobe non-small carcinoma, status post extended wedge resection of right lower lobe via right thoracoscopic approach 2. Chronic pulmonary disease with preoperative FEV1 54% of predicted value 3. Hypertension 4. Hyperlipidemia 5. Thyroid disorder 6. History of congestive heart failure 7. History of abdominal aortic aneurysm with previous endovascular stent graft placement 8. History of peripheral vascular disease with an arterial clot involving the left arm in 2011 9. Chronic kidney disease stage IV Plan: 1. Remove right pleural chest tube. Right pleural chest tube removed at 7:55 AM this a.m. 4 x 4 gauze dressing with Vaseline impregnated gauze to cover and secured with tape. Please leave dressing intact for 48 hours. 2. Wean O2 as tolerated. Encourage incentive spirometry use 10 times every hour while awake. 3. Increase activity, ambulate in room. Physical and occupational therapy consulted. 4. Will monitor daily labs and chest x-rays. 5. Pain control with current medication regimen. 6. GI/DVT prophylaxis. 7. Pathology results may remain pending. 8. Bronchodilators per pulmonology. 9. More recommendations to follow based on patient's clinical course. Time with Patient: Greater than 30
--- NOTE | 2019-05-02 15:35 | P.PN ---
Subjective Progress Note Date: 05/02/19 79-year-old female patient with a 4 cm mass in the right lower lobe discovered during workup for chronic cough. The patient is an ex-smoker. The patient has COPD with an FEV1 of 54% of predicted. Computed tomography scan of the chest that was done on outpatient basis showed a right lower lobe mass abutting the pleural surface and diagnosis of non-small cell lung cancer was established by fine-needle aspirate that was done preoperatively. For that reason the patient was referred for lobectomy. The patient underwent an extensive wedge resection of the right lower lobe via thoracoscopic approach with removal of a are benign station lymph nodes. The patient is currently postop. The patient had a chest x-ray that showed post VATS changes with the right sided chest tube and right basilar atelectasis. No evidence of any pneumothorax. No evidence of any air leak to the chest tube. Output from the chest tube is been only 80 mL since arrival from the operating room. The patient also has hypertension and abdominal aortic aneurysm in addition to chronic pain. On , the patient is postop day #1. Doing well. The right-sided chest tube has been removed. The chest x-ray from today shows no evidence of any pneumothorax. Nevertheless the patient became hypoxic following day removal of the chest tube and currently the patient 6 L of oxygen nasal cannula. She is using incentive spirometer and she is putting only 500. Her blood work shows a creatinine of 1.7 and the patient's chronic kidney disease. Her white cell count is at 11.9. No altered mentation. The chest x-ray from today shows wedgelike consolidation of the right lung base along the costophrenic angle and there is atelectatic changes in lung bases right more than left. The right-leyla ed chest tube have been removed. Objective - Vital Signs Vital signs: Vital Signs Temp 96.1 F L 05/02/19 12:00 Pulse 88 05/02/19 12:03 Resp 16 05/02/19 12:00 BP 98/53 05/02/19 12:00 Pulse Ox 93 L 05/02/19 12:00 Intake & Output 05/01/19 05/02/19 05/02/19 18:59 06:59 18:59 Intake Total 1090 1100 740 Output Total 130 870 Balance 960 230 740 Weight 82.5 kg Intake: IV 850 Intake, IV Titration 900 260 Amount Dextrose 5%-0.45% NaCl 1, 160 000 ml @ 40 mls/hr IV . Q24H [facility] Rx#:[id number] Lactated Ringers 1,000 ml 700 @ 20 mls/hr IV .Q24H [facility] Rx#:[id number] ceFAZolin 2 gm In Sodium 200 100 Chloride 0.9% 50 ml @ 100 mls/hr IVPB Q8HR [facility] Rx# :[id number] Oral 240 200 480 Output: Drainage 80 70 Right 80 70 Urine 800 Estimated Blood Loss 50 Other: Voiding Method Bedpan Bedpan - Exam - Constitutional General appearance: Present: cooperative, no acute distress, obese - Respiratory Details: Lung sounds diminished bilateral bases right greater than left. Respirations are symmetrical and nonlabored. Oxygen saturation are 97% on 5 L nasal cannula. Achieving less than 500 mL on her incentive spirometry. Right pleural chest tube remains in place to water seal. No air leak is present. Draining thin serosanguineous drainage. - Cardiovascular Details: Regular rhythm and rate. S1 and S2 present, negative for S3, gallop or murmur. Remote telemetry showing normal sinus rhythm heart rate 85. No edema present. Knee-high sequential compression devices in place to her bilateral lower extremities. - Gastrointestinal Gastrointestinal Comment(s): Abdomen is soft, nontender and nondistended. Hypoactive bowel sounds present in all 4 abdominal quadrants. Tolerating oral intake. No guarding or rigidity. No organomegaly. - Genitourinary Genitourinary Comment(s): Voiding clear yellow urine. - Integumentary Integumentary Comment(s): Skin is warm and dry. No clubbing or cyanosis is present. Right chest incisions are clean, dry and approximated. No drainage or redness is present. Dressings are clean, dry and intact. - Neurologic Neurologic: Present: CNII-XII intact - Musculoskeletal Musculoskeletal: Present: gait normal, generalized weakness, strength equal bilaterally - Psychiatric Psychiatric: Present: A&O x's 3, appropriate affect, intact judgment & insight - Labs CBC & Chem 7: 05/02/19 06:29 05/02/19 06:29 Labs: Abnormal Lab Results - Last 24 Hours (Table) 05/02/19 05/02/19 Range/Units 06:29 06:29 WBC 11.9 H (3.8-10.6) k/uL RBC 3.55 L (3.80-5.40) m/uL Hgb 10.7 L (11.4-16.0) gm/dL MCHC 30.6 L (31.0-37.0) g/dL Neutrophils # 10.5 H (1.3-7.7) k/uL Lymphocytes # 0.8 L (1.0-4.8) k/uL Potassium 5.4 H (3.5-5.1) mmol/L BUN 41 H (7-17) mg/dL Creatinine 1.70 H (0.52-1.04) mg/dL Glucose 119 H (74-99) mg/dL Assessment and Plan Plan: 1 non-small cell lung cancer of the right lower lobe as the patient has a right lower lobe 4 cm mass. The patient underwent a wedge resection of the lung mass along with resection of the station are 9 lymph node. Patient is postop day #1 . The chest tube has been removed and the patient has adequate pain control. 2 acute hypoxic respiratory failure. The patient has atelectatic changes in lung bases bilaterally. There is expected post wedge resection of the lung/right lower lobe. The patient is currently on 60 Suboxone by nasal cannula. 3 COPD with an FEV1 of 54% of predicted at baseline 4 chronic kidney disease 5 hypertension 6 gout 7 abdominal aortic aneurysm with previous endovascular stent grafting 8 peripheral vascular disease 9 chronic pain syndrome 10 secondary hyperparathyroidism Plan Pain control. Encouraged use of incentive spirometer. Daily chest x-ray. The chest tube has been removed. Awaiting final pathology. I would suggest arranging this patient for home O2. Very much likely the patient will need O2 at home and this will be much decided time of discharge. For now she is on 6 L. She will improved somewhat with aggressive pulmonary toileting. We'll continue to follow. We'll continue to follow.
[2019-05-03] MEDS: PANTOPRAZOLE 40 MG TABLET PO SCH (06:12)
[2019-05-03] MEDS: HYDROcodone/APAP 7.5-325MG 1 EACH TAB PO PRN (06:13)
[2019-05-03 06:46] LABS: HCT 34.3 % (34.0-46.0); HGB 10.4 gm/dL (11.4-16.0); Hypochromasia Moderate; MCH 29.8 pg (25.0-35.0); MCHC 30.2 g/dL (31.0-37.0); MCV 98.7 fL (80.0-100.0); Mean Platelet Volume 7.5; Platelet Count 265 k/uL (150-450); RBC 3.47 m/uL (3.80-5.40); RDW 13.9 % (11.5-15.5); WBC 13.7 k/uL (3.8-10.6)
[2019-05-03 07:22] LABS: Calcium 9.3 mg/dL (8.4-10.2); Potassium 5.2 mmol/L (3.5-5.1)
--- NOTE | 2019-05-03 07:25 | XR ---
EXAMINATION TYPE: XR chest 2V DATE OF EXAM: 05/03/2019 HISTORY: post op right VATS with wedge resection. REFERENCE: Previous study dated 05/02/2019. FINDINGS: There continue to be small, bilateral effusions. The heart is mildly enlarged. There is ate lectatic change present at the left lung base. There is wedgelike consolidation in the right middle l obe. IMPRESSION: 1. UNDERLYING COPD. 2. SMALL, BILATERAL EFFUSIONS, GREATER ON THE LEFT THAN RIGHT. 3. BIBASILAR CONSOLIDATION WORSE ON THE RIGHT LEFT. 4. MILD CARDIOMEGALY.
[2019-05-03] MEDS: VIT A,C & E-LUTEIN-MINERALS 1 EACH TAB PO SCH ×2 (08:43→20:19)
[2019-05-03] MEDS: LOSARTAN 50 MG TAB PO SCH (08:43)
[2019-05-03] MEDS: CHOLECALCIFEROL 1,000 UNIT TAB PO SCH (08:43)
[2019-05-03] MEDS: ALLOPURINOL 100 MG TAB PO SCH (08:44)
[2019-05-03] MEDS: HEPARIN SODIUM,PORCINE 5,000 UNIT/ML 1 ML VIAL SQ SCH ×3 (08:44→23:44)
[2019-05-03] MEDS: amLODIPine 5 MG TAB PO SCH (08:44)
[2019-05-03] MEDS: IPRATROPIUM-ALBUTEROL 3 ML NEB IH SCH ×4 (08:57→20:40)
--- NOTE | 2019-05-03 12:02 | P.PN ---
Subjective Progress Note Date: 05/03/19 Principal diagnosis: Right lower lobe non-small cell carcinoma, past medical history significant for chronic obstructive pulmonary disease with a preoperative FEV1 54% of predicted value, hypertension, hyperlipidemia, thyroid disorder, congestive heart failure, osteoarthritis, history of abdominal aortic aneurysm with previous endovascular stent graft placement, history of peripheral vascular disease with arterial clot involving the left arm in 2012, and chronic kidney disease stage IV. POD #2 extended wedge resection of right lower lobe via right thoracoscopic approach. The patient is currently sitting up to bedside chair on the 3 S. cardiac stepdown unit. She denies any complaints of pain or shortness of breath this time. She is currently on 3 L nasal cannula with oxygen saturations 92%. Her incentive spirometry use is much improved today and she is pulling 1000 mL with encouragement. She reports she ambulated in the hallway of the cardiac stepdown unit yesterday 1 with physical therapy and tolerated well. She is tolerating oral intake. Objective - Vital Signs Vital signs: Vital Signs Temp 97.7 F 05/03/19 03:10 Pulse 93 05/03/19 11:49 Resp 16 05/03/19 11:49 BP 88/50 05/03/19 11:49 Pulse Ox 92 L 05/03/19 11:49 Intake & Output 05/02/19 05/03/19 05/03/19 18:59 06:59 18:59 Intake Total 860 360 Output Total 800 Balance 60 360 Weight 76.3 kg Intake: Intake, IV Titration 260 Amount Dextrose 5%-0.45% NaCl 1, 160 000 ml @ 40 mls/hr IV . Q24H [facility] Rx#:[id number] ceFAZolin 2 gm In Sodium 100 Chloride 0.9% 50 ml @ 100 mls/hr IVPB Q8HR [facility] Rx# :[id number] Oral 600 360 Output: Urine 800 Other: Voiding Method Bedpan Toilet Toilet - Constitutional General appearance: Present: cooperative, no acute distress, obese - Respiratory Details: Lungs sounds essentially clear to her bilateral upper lobes diminished bilateral bases right greater than left. Respirations are symmetrical and nonlabored. Oxygen saturation is 92% on room air. Achieving 1000 mL on her incentive Spirometry. - Cardiovascular Details: Regular rhythm and rate. S1 and S2 present, negative for S3, gallop or murmur. No edema present. Knee-high sequential compression devices in place to bilateral lower extremities. - Gastrointestinal Gastrointestinal Comment(s): Abdomen is soft, nontender and nondistended. Hypoactive bowel sounds present in all 4 abdominal quadrants. No guarding or rigidity. No organomegaly appreciated. - Genitourinary Genitourinary Comment(s): Voiding clear neil urine. - Integumentary Integumentary Comment(s): Skin is warm and dry. No clubbing or cyanosis is present. Right lateral chest incisions are clean, dry and approximated. No drainage or redness present. Dressings are clean and dry. - Neurologic Neurologic: Present: CNII-XII intact - Musculoskeletal Musculoskeletal: Present: gait normal, generalized weakness, strength equal bilaterally - Psychiatric Psychiatric: Present: A&O x's 3, appropriate affect, intact judgment & insight - Allied health notes Allied health notes reviewed: nursing - Labs CBC & Chem 7: 05/03/19 05:57 05/03/19 05:57 Labs: Abnormal Lab Results - Last 24 Hours (Table) 05/03/19 05/03/19 Range/Units 05:57 05:57 WBC 13.7 H (3.8-10.6) k/uL RBC 3.47 L (3.80-5.40) m/uL Hgb 10.4 L (11.4-16.0) gm/dL MCHC 30.2 L (31.0-37.0) g/dL Potassium 5.2 H (3.5-5.1) mmol/L BUN 41 H (7-17) mg/dL Creatinine 2.10 H (0.52-1.04) mg/dL Glucose 105 H (74-99) mg/dL - Imaging and Cardiology Chest x-ray: report reviewed, image reviewed Assessment and Plan Assessment: 1. Right lower lobe non-small carcinoma, status post extended wedge resection of right lower lobe via right thoracoscopic approach 2. Chronic pulmonary disease with preoperative FEV1 54% of predicted value 3. Hypertension 4. Hyperlipidemia 5. Thyroid disorder 6. History of congestive heart failure 7. History of abdominal aortic aneurysm with previous endovascular stent graft placement 8. History of peripheral vascular disease with an arterial clot involving the left arm in 2011 9. Chronic kidney disease stage IV 10. Gout Plan: 1. Please leave right chest tube site dressing intact for another 24 hours. 2. Wean O2 as tolerated. Encourage incentive spirometry use 10 times every hour while awake. 3. Increase activity as tolerated, encourage walking the pitt 3-4 times daily. Physical and occupational therapy following. 4. Will monitor daily labs and chest x-rays. 5. Pain control with current medication regimen. 6. GI/DVT prophylaxis. 7. Pathology results may remain pending. 8. Bronchodilators per pulmonology. 9. More recommendations to follow based on patient's clinical course. Time with Patient: Greater than 30
[2019-05-03] MEDS ORDERED: HYDROcodone/APAP 7.5-325MG 1 EACH TAB PO PRN (12:04)
--- NOTE | 2019-05-03 13:44 | P.PN ---
Subjective Progress Note Date: 05/03/19 Principal diagnosis: non-small cell lung cancer of the right lower lobe, status post wedge resection of the lung mass 79-year-old female patient with a 4 cm mass in the right lower lobe discovered during workup for chronic cough. The patient is an ex-smoker. The patient has COPD with an FEV1 of 54% of predicted. Computed tomography scan of the chest that was done on outpatient basis showed a right lower lobe mass abutting the pleural surface and diagnosis of non-small cell lung cancer was established by fine-needle aspirate that was done preoperatively. For that reason the patient was referred for lobectomy. The patient underwent an extensive wedge resection of the right lower lobe via thoracoscopic approach with removal of a are benign station lymph nodes. The patient is currently postop. The patient had a chest x-ray that showed post VATS changes with the right sided chest tube and right basilar atelectasis. No evidence of any pneumothorax. No evidence of any air leak to the chest tube. Output from the chest tube is been only 80 mL since arrival from the operating room. The patient also has hypertension and abdominal aortic aneurysm in addition to chronic pain. On , the patient is postop day #1. Doing well. The right-sided chest tube has been removed. The chest x-ray from today shows no evidence of any pneumothorax. Nevertheless the patient became hypoxic following day removal of the chest tube and currently the patient 6 L of oxygen nasal cannula. She is using incentive spirometer and she is putting only 500. Her blood work shows a creatinine of 1.7 and the patient's chronic kidney disease. Her white cell count is at 11.9. No altered mentation. The chest x-ray from today shows wedgelike consolidation of the right lung base along the costophrenic angle and there is atelectatic changes in lung bases right more than left. The right- sided chest tube have been removed. On 05/03/2019 patient seen in follow-up and selective care unit, she is calm and comfortable, in no acute distress, but she still requiring supplemental oxygen, currently at 3 L, her pulse ox is 92%, afebrile, she is experiencing some hypotension this morning with a blood pressure of 88/50, she apparently received all her antihypertensives this morning including Norvasc, losartan, and Lasix, which she is asymptomatic, we will discontinue the Norvasc, we'll continue to monitor. Chest x-ray have been reviewed showing small bilateral pleural ef fusions, greater on the left than the right with bibasilar consolidation likely related to atelectatic changes. surgical biopsies are pending. Today's labs have been noted, his been worsening of patient's renal profile, with a BUN of 41, creatinine is up to 2.10 from 1.7 on yesterday's labs. Objective - Vital Signs Vital signs: Vital Signs Temp 97.7 F 05/03/19 03:10 Pulse 92 05/03/19 12:56 Resp 16 05/03/19 11:49 BP 88/50 05/03/19 11:49 Pulse Ox 92 L 05/03/19 11:49 Intake & Output 05/02/19 05/03/19 05/03/19 18:59 06:59 18:59 Intake Total 860 360 Output Total 800 Balance 60 360 Weight 76.3 kg Intake: Intake, IV Titration 260 Amount Dextrose 5%-0.45% NaCl 1, 160 000 ml @ 40 mls/hr IV . Q24H [facility] Rx#:[id number] ceFAZolin 2 gm In Sodium 100 Chloride 0.9% 50 ml @ 100 mls/hr IVPB Q8HR [facility] Rx# :[id number] Oral 600 360 Output: Urine 800 Other: Voiding Method Bedpan Toilet Toilet # Voids 2 - Exam GENERAL EXAM: Alert, pleasant, 79-year-old white female, on 3 L of oxygen a pulse ox of 92%comfortable in no apparent distress. HEAD: Normocephalic/atraumatic. EYES: Normal reaction of pupils, equal size. Conjunctiva pink, sclera white. NOSE: Clear with pink turbinates. THROAT: No erythema or exudates. NECK: No masses, no JVD, no thyroid enlargement, no adenopathy. CHEST: No chest wall deformity. Symmetrical expansion. LUNGS: Equal air entry with no crackles, wheeze, rhonchi or dullness. CVS: Regular rate and rhythm, normal S1 and S2, no gallops, no murmurs, no rubs ABDOMEN: Soft, nontender. No hepatosplenomegaly, normal bowel sounds, no g uarding or rigidity. EXTREMITIES: No clubbing, no edema, no cyanosis, 2+ pulses and upper and lower extremities. MUSCULOSKELETAL: Muscle strength and tone normal. SPINE: No scoliosis or deformity SKIN: No rashes CENTRAL NERVOUS SYSTEM: Alert and oriented -3. No focal deficits, tone is normal in all 4 extremities. PSYCHIATRIC: Alert and oriented -3. Appropriate affect. Intact judgment and insight. - Labs CBC & Chem 7: 05/03/19 05:57 05/03/19 05:57 Labs: Abnormal Lab Results - Last 24 Hours (Table) 05/03/19 05/03/19 Range/Units 05:57 05:57 WBC 13.7 H (3.8-10.6) k/uL RBC 3.47 L (3.80-5.40) m/uL Hgb 10.4 L (11.4-16.0) gm/dL MCHC 30.2 L (31.0-37.0) g/dL Potassium 5.2 H (3.5-5.1) mmol/L BUN 41 H (7-17) mg/dL Creatinine 2.10 H (0.52-1.04) mg/dL Glucose 105 H (74-99) mg/dL Assessment and Plan Plan: 1 non-small cell lung cancer of the right lower lobe as the patient has a right lower lobe 4 cm mass. The patient underwent a wedge resection of the lung mass along with resection of the station are 9 lymph node. Patient is postop day #2 . The chest tube has been removed and the patient has adequate pain control. 2 acute hypoxic respiratory failure. The patient has atelectatic changes in lung bases bilaterally. There is expected post wedge resection of the lung/right lower lobe. The patient is currently on 60 Suboxone by nasal cannula. 3 COPD with an FEV1 of 54% of predicted at baseline 4 chronic kidney disease 5 hypertension 6 gout 7 abdominal aortic aneurysm with previous endovascular stent grafting 8 peripheral vascular disease 9 chronic pain syndrome 10 secondary hyperparathyroidism Plan: Continue encouraging deep breathing and coughing, incentive spirometry use, today's chest x-ray has been reviewed showing small bilateral pleural effusions with adjacent atelectasis. Ambulate the patient. Awaiting final pathology. Patient will likely require oxygen at home, 16-year-old with aggressive pulmonary toileting, I performed a history & physical examination of the patient and discussed their management with my nurse practitioner, Rachele Bradshaw. I reviewed the nurse practitioner's note and agree with the documented findings and plan of care. Lung sounds are positive for diminished breath sounds. The findings and the impression was discussed with the patient. I attest to the documentation by the nurse practitioner. Time with Patient: Less than 30
[2019-05-03] MEDS ORDERED: ALBUMIN HUMAN 5% 250 ML in EMPTY BAG 1 BAG IVPB ONE (13:49)
[2019-05-04] MEDS: PANTOPRAZOLE 40 MG TABLET PO SCH (06:02)
[2019-05-04 06:44] LABS: Calcium 9.1 mg/dL (8.4-10.2)
[2019-05-04 06:50] LABS: HCT 30.3 % (34.0-46.0); HGB 9.5 gm/dL (11.4-16.0); Hypochromasia Slight; MCHC 31.5 g/dL (31.0-37.0); MCV 98.3 fL (80.0-100.0); Mean Platelet Volume 7.8; Platelet Count 254 k/uL (150-450); RBC 3.08 m/uL (3.80-5.40); RDW 14.9 % (11.5-15.5); WBC 9.6 k/uL (3.8-10.6)
--- NOTE | 2019-05-04 07:29 | XR ---
EXAMINATION TYPE: XR chest 2V DATE OF EXAM: 05/04/2019 HISTORY: Postoperative right VATS. REFERENCE: Previous study dated 05/03/2019. FINDINGS: The lungs are overinflated. There is bibasilar airspace disease. There is volume loss in th e right middle lobe. There are small, bilateral effusions. The heart is not enlarged. IMPRESSION: NO SIGNIFICANT INTERVAL CHANGE IN THE CHEST.
[2019-05-04] MEDS: IPRATROPIUM-ALBUTEROL 3 ML NEB IH SCH ×4 (08:28→19:54)
[2019-05-04] MEDS: VIT A,C & E-LUTEIN-MINERALS 1 EACH TAB PO SCH ×2 (08:42→20:08)
[2019-05-04] MEDS: HEPARIN SODIUM,PORCINE 5,000 UNIT/ML 1 ML VIAL SQ SCH ×3 (08:42→23:11)
[2019-05-04] MEDS: ALLOPURINOL 100 MG TAB PO SCH (08:43)
[2019-05-04] MEDS: CHOLECALCIFEROL 1,000 UNIT TAB PO SCH (08:43)
--- NOTE | 2019-05-04 11:38 | P.PN ---
Subjective Progress Note Date: 05/04/19 Principal diagnosis: Right lower lobe non-small cell carcinoma, past medical history significant for chronic obstructive pulmonary disease with a preoperative FEV1 54% of predicted value, hypertension, hyperlipidemia, thyroid disorder, congestive heart failure, osteoarthritis, history of abdominal aortic aneurysm with previous endovascular stent graft placement, history of peripheral vascular disease with arterial clot involving the left arm in 2012, and chronic kidney disease stage IV. POD #3 extended wedge resection of right lower lobe via right thoracoscopic approach. The patient is currently sitting up to bedside chair on the 3 S. cardiac stepdown unit. She denies any complaints of pain or shortness of breath this time. She is currently on 2 L nasal cannula with oxygen saturations 92%. Her incentive spirometry use and continues to be improved today as she is pulling 1000 mL with encouragement. She continues to ambulate in the hallway of the cardiac stepdown unit with miniamal assistance. She is tolerating oral intake. She is complaining of a loose productive cough and states that she is having a hard time getting it loose to cough up. She remains afebrile. Objective - Vital Signs Vital signs: Vital Signs Temp 98.7 F 05/04/19 08:00 Pulse 100 05/04/19 08:39 Resp 18 05/04/19 11:00 BP 99/54 05/04/19 08:00 Pulse Ox 80 L 05/04/19 11:00 Intake & Output 05/03/19 05/04/19 05/04/19 18:59 06:59 18:59 Intake Total 1210 480 Balance 1210 480 Weight 76.3 kg Intake: Intake, IV Titration 250 Amount Albumin Human 5% 250 ml 250 In Empty Bag 1 bag @ 250 mls/hr IVPB ONCE ONE Rx#: [id number] Oral 960 480 Other: Voiding Method Toilet Toilet Toilet # Voids 1 - Constitutional General appearance: Present: cooperative, no acute distress, obese - Respiratory Details: Lung sounds with few scattered rhonchi throughout, diminished bilateral bases. Respirations are symmetrical and nonlabored. Oxygen saturation are 92% on 2 L nasal cannula. Achieving 1000 mL on her incentive spirometry. Loose nonpr oductive cough. - Cardiovascular Details: Regular rhythm and tachycardic rate. S1 and S2 present, negative for S3, gallop or murmur. No edema present. Knee-high sequential compression devices in place to bilateral lower extremities. - Gastrointestinal Gastrointestinal Comment(s): Abdomen soft, nontender and nondistended. Active bowel sounds present in all 4 abdominal quadrants. No organomegaly. No guarding or rigidity. Tolerating oral intake. - Genitourinary Genitourinary Comment(s): Continues to void without complaints - Neurologic Neurologic: Present: CNII-XII intact - Musculoskeletal Musculoskeletal: Present: gait normal, generalized weakness, strength equal bilaterally - Psychiatric Psychiatric: Present: A&O x's 3, appropriate affect, intact judgment & insight - Allied health notes Allied health notes reviewed: nursing - Labs CBC & Chem 7: 05/04/19 06:01 05/04/19 06:01 Labs: Abnormal Lab Results - Last 24 Hours (Table) 05/04/19 05/04/19 Range/Units 06:01 06:01 RBC 3.08 L (3.80-5.40) m/uL Hgb 9.5 L (11.4-16.0) gm/dL Hct 30.3 L (34.0-46.0) % Sodium 134 L (137-145) mmol/L BUN 54 H (7-17) mg/dL Creatinine 2.54 H (0.52-1.04) mg/dL Glucose 101 H (74-99) mg/dL - Imaging and Cardiology Chest x-ray: report reviewed, image reviewed Assessment and Plan Assessment: 1. Right lower lobe non-small carcinoma, status post extended wedge resection of right lower lobe via right thoracoscopic approach 2. Chronic pulmonary disease with preoperative FEV1 54% of predicted value 3. Hypertension 4. Hyperlipidemia 5. Thyroid disorder 6. History of congestive heart failure 7. History of abdominal aortic aneurysm with previous endovascular stent graft placement 8. History of peripheral vascular disease with an arterial clot involving the left arm in 2011 9. Chronic kidney disease stage IV 10. Gout Plan: 1. Due to the patient's loose nonproductive cough we will start her on Mucinex 600 mg by mouth every 12 hours. 2. Wean O2 as tolerated. Encourage incentive spirometry use 10 times every hour while awake. 3. Increase activity as tolerated, encourage walking the pitt 3-4 times daily. Physical and occupational therapy following. 4. Will monitor daily labs and chest x-rays. 5. Pain control with current medication regimen. 6. GI/DVT prophylaxis. 7. Pathology results may remain pending. 8. Bronchodilators per pulmonology. 9. Send sputum for Gram stain per Dr. Blakely. 10. Chest physiotherapy 4 times a day per Dr. Blakely. 11. More recommendations to follow based on patient's clinical course. 12. Anticipate discharge home tomorrow, may require home O2. Time with Patient: Greater than 30
[2019-05-04] MEDS: LOSARTAN 50 MG TAB PO SCH (12:47)
[2019-05-04 12:49] VITALS: RESP 16
[2019-05-04] MEDS: guaiFENesin 600 MG TABLET.ER PO SCH ×2 (12:51→20:09)
--- NOTE | 2019-05-04 13:11 | P.PN ---
Subjective Progress Note Date: 05/04/19 79-year-old female patient with a 4 cm mass in the right lower lobe discovered during workup for chronic cough. The patient is an ex-smoker. The patient has COPD with an FEV1 of 54% of predicted. Computed tomography scan of the chest that was done on outpatient basis showed a right lower lobe mass abutting the pleural surface and diagnosis of non-small cell lung cancer was established by fine-needle aspirate that was done preoperatively. For that reason the patient was referred for lobectomy. The patient underwent an extensive wedge resection of the right lower lobe via thoracoscopic approach with removal of a are benign station lymph nodes. The patient is currently postop. The patient had a chest x-ray that showed post VATS changes with the right sided chest tube and right basilar atelectasis. No evidence of any pneumothorax. No evidence of any air leak to the chest tube. Output from the chest tube is been only 80 mL since arrival from the operating room. The patient also has hypertension and abdominal aortic aneurysm in addition to chronic pain. On , the patient is postop day #1. Doing well. The right-sided chest tube has been removed. The chest x-ray from today shows no evidence of any pneumothorax. Nevertheless the patient became hypoxic following day removal of the chest tube and currently the patient 6 L of oxygen nasal cannula. She is using incentive spirometer and she is putting only 500. Her blood work shows a creatinine of 1.7 and the patient's chronic kidney disease. Her white cell count is at 11.9. No altered mentation. The chest x-ray from today shows wedgelike consolidation of the right lung base along the costophrenic angle and there is atelectatic changes in lung bases right more than left. The right-leyla ed chest tube have been removed. On 05/03/2019 patient seen in follow-up and selective care unit, she is calm and comfortable, in no acute distress, but she still requiring supplemental oxygen, currently at 3 L, her pulse ox is 92%, afebrile, she is experiencing some hypotension this morning with a blood pressure of 88/50, she apparently received all her antihypertensives this morning including Norvasc, losartan, and Lasix, which she is asymptomatic, we will discontinue the Norvasc, we'll continue to monitor. Chest x-ray have been reviewed showing small bilateral pleural effusions, greater on the left than the right with bibasilar consolidation likely related to atelectatic changes. surgical biopsies are pending. Today's labs have been noted, his been worsening of patient's renal profile, with a BUN of 41, creatinine is up to 2.10 from 1.7 on yesterday's labs. On 05/04/2019 I'm seeing this patient for a follow-up. The patient is doing well. She had a very congested cough. She was able to bring up globs of mucoid bloody mucus. This will be sent for cultures. She still requiring oxygen. On room air her pulse ox dropped down to the low 80s. I'm arranging for her home oxygen. Chest x-ray from today shows there are small bilateral pleural effusions. There is some atelectatic changes in the right lung base. The patient has chronic kidney disease. On today's evaluation the creatinine is at 2.5. The patient was started on Mucinex for cough and congestion. White cell count is at 9.6. Chest tubes have been removed. No other issues for now. Objective - Vital Signs Vital signs: Vital Signs Temp 98.7 F 05/04/19 08:00 Pulse 100 05/04/19 12:30 Resp 16 05/04/19 12:00 BP 104/56 05/04/19 12:00 Pulse Ox 93 L 05/04/19 12:00 Intake & Output 05/03/19 05/04/19 05/04/19 18:59 06:59 18:59 Intake Total 1210 480 Output Total 800 Balance 1210 -320 Weight 76.3 kg Intake: Intake, IV Titration 250 Amount Albumin Human 5% 250 ml 250 In Empty Bag 1 bag @ 250 mls/hr IVPB ONCE ONE Rx#: [id number] Oral 960 480 Output: Urine 800 Other: Voiding Method Toilet Toilet Toilet # Voids 1 1 - Exam - Exam GENERAL EXAM: Alert, pleasant, 79-year-old white female, on 2 L of oxygen a pulse ox of 92%comfortable in no apparent distress. HEAD: Normocephalic/atraumatic. EYES: Normal reaction of pupils, equal size. Conjunctiva pink, sclera white. NOSE: Clear with pink turbinates. THROAT: No erythema or exudates. NECK: No masses, no JVD, no thyroid enlargement, no adenopathy. CHEST: No chest wall deformity. Symmetrical expansion. LUNGS: Equal air entry with no crackles, wheeze, rhonchi or dullness. CVS: Regular rate and rhythm, normal S1 and S2, no gallops, no murmurs, no rubs ABDOMEN: Soft, nontender. No hepatosplenomegaly, normal bowel sounds, no guarding or rigidity. EXTREMITIES: No clubbing, no edema, no cyanosis, 2+ pulses and upper and lower extremities. MUSCULOSKELETAL: Muscle strength and tone normal. SPINE: No scoliosis or deformity SKIN: No rashes CENTRAL NERVOUS SYSTEM: Alert and oriented -3. No focal deficits, tone is normal in all 4 extremities. PSYCHIATRIC: Alert and oriented -3. Appropriate affect. Intact judgment and insight. - Labs CBC & Chem 7: 05/04/19 06:01 05/04/19 06:01 Labs: Abnormal Lab Results - Last 24 Hours (Table) 05/04/19 05/04/19 Range/Units 06:01 06:01 RBC 3.08 L (3.80-5.40) m/uL Hgb 9.5 L (11.4-16.0) gm/dL Hct 30.3 L (34.0-46.0) % Sodium 134 L (137-145) mmol/L BUN 54 H (7-17) mg/dL Creatinine 2.54 H (0.52-1.04) mg/dL Glucose 101 H (74-99) mg/dL Assessment and Plan Plan: 1 non-small cell lung cancer of the right lower lobe as the patient has a right lower lobe 4 cm mass. The patient underwent a wedge resection of the lung mass along with resection of the station are 9 lymph node. Patient is postop day #3.. The chest tube has been removed and the patient has adequate pain control. Meanwhile, the patient has developed small bilateral pleural effusions. 2 acute hypoxic respiratory failure. The patient is still requiring oxygen at 2 L per minute nasal cannula. Chest x-ray was reviewed. No evidence of any pneumothorax. 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 She was able to bring up some globs of mucus. Encouraged use of incentive spirometer. Ambulation. Home O2. We'll keep the patient hospital for another 24 hours. Repeat chest x-ray in the morning. Renal function was noted.
[2019-05-04] MEDS ORDERED: HYDROcodone/APAP 7.5-325MG 1 EACH TAB PO SCH (21:00)
[2019-05-05 03:48] VITALS: TEMP 98
[2019-05-05] MEDS: PANTOPRAZOLE 40 MG TABLET PO SCH (06:40)
[2019-05-05] MEDS: IPRATROPIUM-ALBUTEROL 3 ML NEB IH SCH ×2 (06:53→10:40)
--- NOTE | 2019-05-05 07:07 | XR ---
EXAMINATION TYPE: XR chest 2V DATE OF EXAM: 05/05/2019 COMPARISON: Prior chest x-ray 05/04/2019 HISTORY: Postop right VATS TECHNIQUE: Frontal and lateral views of the chest are obtained. FINDINGS: There is no evident pneumothorax. Bibasilar increased density persists. Heart size is like ly stable but the heart is obscured. There are overlying cardiac leads. Pulmonary vascularity and hil a not significantly changed. Prominent lung volumes suggest underlying COPD. Interstitium mildly incr eased. Patient is status post aortic stent graft placement. IMPRESSION: Basilar effusions and associated atelectasis versus edema, correlate to exclude pneumoni a.
[2019-05-05 07:55] LABS: HCT 34.1 % (34.0-46.0); HGB 10.4 gm/dL (11.4-16.0); Hypochromasia Slight; MCH 30.5 pg (25.0-35.0); MCHC 30.6 g/dL (31.0-37.0); MCV 99.8 fL (80.0-100.0); Macrocytosis Slight; Mean Platelet Volume 7.9; Platelet Count 322 k/uL (150-450); RBC 3.41 m/uL (3.80-5.40); RDW 14.5 % (11.5-15.5)
[2019-05-05 08:10] LABS: Calcium 9.8 mg/dL (8.4-10.2)
--- NOTE | 2019-05-05 08:44 | P.PN ---
Subjective Progress Note Date: 05/05/19 Principal diagnosis: Right lower lobe non-small cell carcinoma. Previous medical history significant of chronic obstructive pulmonary disease with a preoperative FEV1 54% of predi cted, hypertension, hyperlipidemia, hyperparathyroidism, chronic congestive heart failure, history of abdominal aortic aneurysm with previous endovascular stent graft placement in 2014, history of peripheral vascular disease with arterial clot involving the left arm in 2011, chronic kidney disease stage IV, and gouty arthritis. POD #3 extended wedge resection of right lower lobe via right thoracoscopic approach. Acute hypoxemic respiratory failure requiring supplemental oxygen, expected Patient is currently sitting up in a recliner in no acute distress. States pain is mostly controlled, tenacious of breath. Patient did ambulate in the hallway yesterday, however she does require oxygen as her oxygen levels dropped into the 70s on room air with ambulation. Sputum appears bloody, was sent for culture yesterday per pulmonology. Objective - Vital Signs Vital signs: Vital Signs Temp 98 F 05/05/19 03:30 Pulse 104 H 05/05/19 07:04 Resp 16 05/05/19 03:30 BP 105/52 05/05/19 03:30 Pulse Ox 94 L 05/05/19 06:54 Intake & Output 05/04/19 05/05/19 05/05/19 18:59 06:59 18:59 Intake Total 720 Output Total 800 Balance -80 Weight 75.9 kg Intake: Oral 720 Output: Urine 800 Other: Voiding Method Toilet Toilet # Voids 2 - Constitutional General appearance: Present: cooperative, no acute distress - Respiratory Details: Lungs sounds diminished bilaterally with coarse breath sounds in the right base. Respirations even, nonlabored. Currently on 2 L nasal cannula with oxygen saturation 98%. Able to achieve 1000 mL on her incentive spirometry. Strong cough with bloody sputum. - Cardiovascular Details: S1, S2 present. Tachycardic but regular rate and rhythm, sinus tach on telemetry. Palpable peripheral pulses bilaterally. No edema present. No calf pain or tenderness noted. SCDs present. - Gastrointestinal Gastrointestinal Comment(s): Abdomen soft, nontender, nondistended. Active bowel sounds present 4 quadrants. Tolerating diet. - Genitourinary Genitourinary Comment(s): Continues to void clear, yellow urine. - Integumentary Integumentary Comment(s): Skin is warm and dry with evidence of good perfusion. Right lateral incisions well approximated. - Neurologic Neurologic: Present: CNII-XII intact - Musculoskeletal Musculoskeletal: Present: gait normal, strength equal bilaterally - Psychiatric Psychiatric: Present: A&O x's 3, appropriate affect, intact judgment & insight - Allied health notes Allied health notes reviewed: nursing - Labs CBC & Chem 7: 05/05/19 07:11 05/05/19 07:11 - Imaging and Cardiology Chest x-ray: report reviewed, image reviewed Assessment and Plan Assessment: 1. Right lower lobe non-small carcinoma, status post extended wedge resection of right lower lobe via right thoracoscopic approach 2. Acute hypoxic respiratory failure requiring supplemental oxygen 3. Chronic pulmonary disease with preoperative FEV1 54% of predicted value 4. Hypertension 5. Hyperlipidemia 6. Hyperparathyroidism 7. History of chronic congestive heart failure 8. History of abdominal aortic aneurysm with previous endovascular stent graft placement in 2014 9. History of peripheral vascular disease with an arterial clot involving the left arm in 2011 10. Chronic kidney disease stage IV 11. Gouty arthritis Plan: 1. Continue Mucinex 600 mg by mouth every 12 hours. 2. Wean O2 as tolerated. Encourage incentive spirometry use 10 times every hour while awake. 3. Increase activity as tolerated, encourage walking the pitt 3-4 times daily. Physical and occupational therapy following. 4. Will monitor daily labs and chest x-rays. 5. Pain control with current medication regimen. 6. GI/DVT prophylaxis. 7. Pathology results may remain pending. 8. Bronchodilators per pulmonology. 9. Sputum sent for Gram stain per Dr. Blakely, results pending. 10. Chest physiotherapy 4 times a day per Dr. Blakely. 11. Patient should shower today and daily. 12. More recommendations to follow based on patient's clinical course. 13. Anticipate discharge home later today, requires home O2, prescription written by Dr. Blakely. Time with Patient: Greater than 30
[2019-05-05] MEDS: FUROSEMIDE 40 MG TAB PO SCH (08:54)
[2019-05-05] MEDS: ALLOPURINOL 100 MG TAB PO SCH (08:54)
[2019-05-05] MEDS: HEPARIN SODIUM,PORCINE 5,000 UNIT/ML 1 ML VIAL SQ SCH (08:54)
[2019-05-05] MEDS: CHOLECALCIFEROL 1,000 UNIT TAB PO SCH (08:54)
[2019-05-05] MEDS: CALCITRIOL 0.25 MCG CAP PO SCH (08:54)
[2019-05-05] MEDS: guaiFENesin 600 MG TABLET.ER PO SCH (08:54)
--- NOTE | 2019-05-05 11:31 | P.DS ---
Providers Date of admission: 05/01/19 07:12 Expected date of discharge: 05/05/19 Attending physician: Be Paz Consults: 05/01/19 12:39 Consult Physician Routine Consulting Provider: Cecily Blakely Consult Reason/Comments: post augusto howell patient Do you want consulting provider notified?: Yes Primary care physician: Shannon Petersen Hospital Course: FINAL DIAGNOSIS: 1. Right lower lobe non-small cell carcinoma 2. Acute hypoxic respiratory failure requiring supplemental oxygen 3. Chronic pulmonary disease with preoperative FEV1 54% of predicted 4. Hypertension 5. Hyperlipidemia 6. Hyperparathyroidism 7. History of chronic congestive heart failure 8. History of abdominal aortic aneurysm with previous endovascular stent graft placement in 2014 9. History of peripheral vascular disease with an arterial clot involving the left arm in 2011 10. Chronic kidney disease stage IV 11. Gouty arthritis PRINCIPAL PROCEDURE: 1. Extended wedge resection of right lower lobe via a right thoracoscopic approach HISTORY OF PRESENT ILLNESS: This is an 79-year-old female patient who follows with Dr Shannon Petersen on an outpatient basis. She presented to Dr. Petersen's office with shortness of breath and cough. A computed tomography scan was performed demonstrating a right lower lobe mass which measured 4 x 2.5 cm. She underwent needle biopsy which was positive for non-small cell carcinoma. PET scan was also performed demonstrating no evidence of metastasis. The patient was referred to Dr. Paz from cardiothoracic surgery. She was given the option of no treatment, radiation treatment to shrink the tumor, thoracoscopic wedge resection, and lobectomy. Treatment options were discussed in detail with the patient and her family, all risks and benefits were explained, all questions were answered, and the patient wished to go home to think about her options. She did eventually indicate that she would like to have a thoracoscopic wedge r esection and gave full informed consent to proceed with surgery, which was scheduled at the earliest possible date. HOSPITAL COURSE: The patient was brought to the hospital on 05/01/2019, taken to the preoperative area, prepared in the usual fashion, and subsequently taken to the operating room where Dr. Paz performed an extended wedge resection of the right lower lobe via a right thoracoscopic approach. Upon completion of surgery the patient was extubated and taken to the recovery room where she was monitored hemodynamically. She was eventually admitted to 3 S. cardiac stepdown unit for further monitoring and rehabilitation. She had no air leak with a stable chest x-ray on postoperative day #1, and her right pleural chest tube was removed without incident. Initially she had high oxygen requirements, however her oxygen was eventually titrated down to 2 L nasal cannula, she continued to work with physical and occupational therapy, she was tolerating oral diet, her pain was controlled, and she was ready to be discharged to home with home oxygen on postoperative day #4. She received written and verbal instruction regarding her medications, activity restrictions, signs and symptoms requiring physician notification, and follow-up appointments. COMPLICATIONS: The patient experienced postoperative hypoxic respiratory failure requiring supplemental oxygen, and she was discharged home on oxygen therapy. Patient Condition at Discharge: Stable Plan - Discharge Summary Discharge Rx Participant: No New Discharge Prescriptions: New guaiFENesin [Mucinex] 600 mg PO Q12HR tablet.er Acetaminophen Tab [Tylenol] 1,000 mg PO Q6HR PRN tab PRN Reason: Fever And/ Or Pain Continue Allopurinol [Zyloprim] 100 mg PO DAILY Telmisartan [Micardis] 40 mg PO DAILY HYDROcodone/APAP 7.5-325MG [[place] 7.5-325] 1 tab PO HS Furosemide [Lasix] 40 mg PO MOWEFR Warfarin [Coumadin] 5 mg PO MOWEFR Ipratropium-Albuterol Nebulize [Duoneb 0.5 mg-3 mg/3 ml Soln] 3 ml INHALATION RT-QID Cholecalciferol (Vitamin D3) [Vitamin D3] 4,000 unit PO DAILY Calcitriol [Rocaltrol] 0.25 mcg PO MOFR Vit C/E/Zn/Coppr/Lutein/Zeaxan [Preservision Areds 2 Softgel] 1 cap PO BID Warfarin [Coumadin] 2.5 mg PO SUTUTHSA Discontinued amLODIPine [Norvasc] 5 mg PO DAILY Discharge Medication List Allopurinol [Zyloprim] 100 mg PO DAILY 05/26/16 [History] Furosemide [Lasix] 40 mg PO MOWEFR 05/26/16 [History] HYDROcodone/APAP 7.5-325MG [[place] 7.5-325] 1 tab PO HS 05/26/16 [History] Telmisartan [Micardis] 40 mg PO DAILY 05/26/16 [History] Warfarin [Coumadin] 5 mg PO MOWEFR 05/26/16 [History] Calcitriol [Rocaltrol] 0.25 mcg PO MOFR 03/27/19 [History] Cholecalciferol (Vitamin D3) [Vitamin D3] 4,000 unit PO DAILY 03/27/19 [History] Ipratropium-Albuterol Nebulize [Duoneb 0.5 mg-3 mg/3 ml Soln] 3 ml INHALATION RT-QID 03/27/19 [History] Vit C/E/Zn/Coppr/Lutein/Zeaxan [Preservision Areds 2 Softgel] 1 cap PO BID 04/02/19 [History] Warfarin [Coumadin] 2.5 mg PO SUTUTHSA 04/25/19 [History] Acetaminophen Tab [Tylenol] 1,000 mg PO Q6HR PRN tab 05/05/19 [Rx] guaiFENesin [Mucinex] 600 mg PO Q12HR tablet.er 05/05/19 [Rx] Follow up Appointment(s)/Referral(s): [facility],Equipment [NON-STAFF] - 1-2 Days Be Paz MD [STAFF PHYSICIAN] - 05/08/19 1:45 pm Shannon Petersen MD [Primary Care Provider] - 05/12/19 4:00 pm Activity/Diet/Wound Care/Special Instructions: DISCHARGE INSTRUCTIONS: 1. No driving for 2 weeks, or until physician gives their ok. 2. No lifting, pushing, or pulling more than 10 pounds for 2 weeks. The physician will advise of any restriction changes. 3. Continue pain control per as needed orders. May use acetaminophen (Tylenol) for pain. 4. Continue with incentive spirometry and splinting until otherwise directed by the physician. 5. Shower daily. 6. Routine incision care. No powders, lotions, ointments on incisions. 7. Please call surgeon/STUNT DOUBLE for temp greater than 101 F or purulent drainage from incisions. Discharge Disposition: HOME SELF-CARE
[2019-05-05] MEDS: LOSARTAN 50 MG TAB PO SCH (12:10)
[2019-05-05] MEDS: VIT A,C & E-LUTEIN-MINERALS 1 EACH TAB PO SCH (12:17)
[2019-05-05 12:21] VITALS: BP 170/77; PULSE 67
--- NOTE | 2019-05-05 15:34 | P.PN ---
Subjective Progress Note Date: 05/05/19 Principal diagnosis: non-small cell lung cancer of the right lower lobe, status post wedge resection of the lung mass 79-year-old female patient with a 4 cm mass in the right lower lobe discovered during workup for chronic cough. The patient is an ex-smoker. The patient has COPD with an FEV1 of 54% of predicted. Computed tomography scan of the chest that was done on outpatient basis showed a right lower lobe mass abutting the pleural surface and diagnosis of non-small cell lung cancer was established by fine-needle aspirate that was done preoperatively. For that reason the patient was referred for lobectomy. The patient underwent an extensive wedge resection of the right lower lobe via thoracoscopic approach with removal of a are benign station lymph nodes. The patient is currently postop. The patient had a chest x-ray that showed post VATS changes with the right sided chest tube and right basilar atelectasis. No evidence of any pneumothorax. No evidence of any air leak to the chest tube. Output from the chest tube is been only 80 mL since arrival from the operating room. The patient also has hypertension and abdominal aortic aneurysm in addition to chronic pain. On , the patient is postop day #1. Doing well. The right-sided chest tube has been removed. The chest x-ray from today shows no evidence of any pneumothorax. Nevertheless the patient became hypoxic following day removal of the chest tube and currently the patient 6 L of oxygen nasal cannula. She is using incentive spirometer and she is putting only 500. Her blood work shows a creatinine of 1.7 and the patient's chronic kidney disease. Her white cell count is at 11.9. No altered mentation. The chest x-ray from today shows wedgelike consolidation of the right lung base along the costophrenic angle and there is atelectatic changes in lung bases right more than left. The right- sided chest tube have been removed. On 05/03/2019 patient seen in follow-up and selective care unit, she is calm and comfortable, in no acute distress, but she still requiring supplemental oxygen, currently at 3 L, her pulse ox is 92%, afebrile, she is experiencing some hypotension this morning with a blood pressure of 88/50, she apparently received all her antihypertensives this morning including Norvasc, losartan, and Lasix, which she is asymptomatic, we will discontinue the Norvasc, we'll continue to monitor. Chest x-ray have been reviewed showing small bilateral pleural ef fusions, greater on the left than the right with bibasilar consolidation likely related to atelectatic changes. surgical biopsies are pending. Today's labs have been noted, his been worsening of patient's renal profile, with a BUN of 41, creatinine is up to 2.10 from 1.7 on yesterday's labs. On 04/26/2019 patient seen in follow-up on selective care unit. He is calm and comfortable, she is currently on 2 L of oxygen, with a pulse ox of 95%. Afebrile, no shortness of breath, lung sounds reveal some crackles at bilateral bases, patient is bringing up blood clotty type looking phlegm. Hemoglobin is stable at 10.4, white blood cell, of 11.0, electrolytes were within normal limits, BUN 53, creatinine is 2.35. Today's chest x-ray has been reviewed, showing basilar effusions and associated atelectasis. She is working on her incentive spirometer, no acute issues overnight. Surgical biopsies pending, patient is stable, and is anticipated to be discharged home today. Objective - Vital Signs Vital signs: Vital Signs Temp 98 F 05/05/19 03:30 Pulse 67 05/05/19 12:00 Resp 16 05/05/19 12:00 BP 170/77 05/05/19 12:00 Pulse Ox 95 05/05/19 12:00 Intake & Output 05/04/19 05/05/19 05/05/19 18:59 06:59 18:59 Intake Total 720 240 Output Total 800 Balance -80 240 Weight 75.9 kg Intake: Oral 720 240 Output: Urine 800 Other: Voiding Method Toilet Toilet Toilet # Voids 2 - Exam GENERAL EXAM: Alert, pleasant, 79-year-old white female, on 3 L of oxygen a pulse ox of 92%comfortable in no apparent distress. HEAD: Normocephalic/atraumatic. EYES: Normal reaction of pupils, equal size. Conjunctiva pink, sclera white. NOSE: Clear with pink turbinates. THROAT: No erythema or exudates. NECK: No masses, no JVD, no thyroid enlargement, no adenopathy. CHEST: No chest wall deformity. Symmetrical expansion. LUNGS: Equal air entry with no crackles, wheeze, rhonchi or dullness. CVS: Regular rate and rhythm, normal S1 and S2, no gallops, no murmurs, no rubs ABDOMEN: Soft, nontender. No hepatosplenomegaly, normal bowel sounds, no guarding or rigidity. EXTREMITIES: No clubbing, no edema, no cyanosis, 2+ pulses and upper and lower extremities. MUSCULOSKELETAL: Muscle strength and tone normal. SPINE: No scoliosis or deformity SKIN: No rashes CENTRAL NERVOUS SYSTEM: Alert and oriented -3. No focal deficits, tone is normal in all 4 extremities. PSYCHIATRIC: Alert and oriented -3. Appropriate affect. Intact judgment and insight. - Labs CBC & Chem 7: 05/05/19 07:11 05/05/19 07:11 Labs: Abnormal Lab Results - Last 24 Hours (Table) 05/05/19 05/05/19 Range/Units 07:11 07:11 WBC 11.0 H (3.8-10.6) k/uL RBC 3.41 L (3.80-5.40) m/uL Hgb 10.4 L (11.4-16.0) gm/dL MCHC 30.6 L (31.0-37.0) g/dL BUN 53 H (7-17) mg/dL Creatinine 2.35 H (0.52-1.04) mg/dL Glucose 106 H (74-99) mg/dL Assessment and Plan Plan: 1 non-small cell lung cancer of the right lower lobe as the patient has a right lower lobe 4 cm mass. The patient underwent a wedge resection of the lung mass along with resection of the station are 9 lymph node. Patient is postop day #5 . The chest tube has been removed and the patient has adequate pain control. 2 acute hypoxic respiratory failure. The patient has atelectatic changes in lung bases bilaterally. There is expected post wedge resection of the lung/right lower lobe. The patient is currently on 60 Suboxone by nasal ca nnula. 3 COPD with an FEV1 of 54% of predicted at baseline 4 chronic kidney disease 5 hypertension 6 gout 7 abdominal aortic aneurysm with previous endovascular stent grafting 8 peripheral vascular disease 9 chronic pain syndrome 10 secondary hyperparathyroidism Plan: Patient is doing well, she is coughing up some blood clotted-type material, however she is in no acute distress, maintaining stable oxygenation, work on incentive spirometer, today's chest x-ray shows small basilar effusions, no evident pneumothorax. Tolerating ambulation, patient is being discharged home today. Will need to follow up with Dr. Charles in the office in 7-10 days. I performed a history & physical examination of the patient and discussed their management with my nurse practitioner, Rachele Bradshaw. I reviewed the nurse practitioner's note and agree with the documented findings and plan of care. Lung sounds are positive for diminished breath sounds. The findings and the impression was discussed with the patient. I attest to the documentation by the nurse practitioner. Time with Patient: Less than 30
== END 2019-05-05 13:20 | disposition home or self-care (01) | DRG 164 ==
LOC: 2ORMAIN 07:12 → EDSTATUS 08:45 → 3SCARD 11:51
PROVIDERS: ADMIT Thoracic Surgery (Cardiothoracic Vascular Surgery); ATTEND Thoracic Surgery (Cardiothoracic Vascular Surgery)
PROC: 07B74ZX Excision of Thorax Lymphatic, Percutaneous Endoscopic Approach, Diagnostic (ICD-10-PCS; 2019-05-01)
PROC: 0BBF4ZZ Excision of Right Lower Lung Lobe, Percutaneous Endoscopic Approach (ICD-10-PCS; principal; 2019-05-01 08:45)
DX: C34.31 Malignant neoplasm of lower lobe, right bronchus or lung (principal); N25.81 Secondary hyperparathyroidism of renal origin; N18.4 Chronic kidney disease, stage 4 (severe); I13.0 Hypertensive heart and chronic kidney disease with heart failure and stage 1 through stage 4 chronic kidney disease, or unspecified chronic kidney disease; I50.9 Heart failure, unspecified; M81.0 Age-related osteoporosis without current pathological fracture; E78.5 Hyperlipidemia, unspecified; H35.30 Unspecified macular degeneration; I73.9 Peripheral vascular disease, unspecified; J44.9 Chronic obstructive pulmonary disease, unspecified; M10.9 Gout, unspecified; G89.4 Chronic pain syndrome; Z87.891 Personal history of nicotine dependence; Z79.01 Long term (current) use of anticoagulants; Z79.899 Other long term (current) drug therapy; Z98.890 Other specified postprocedural states; Z98.51 Tubal ligation status; Z86.718 Personal history of other venous thrombosis and embolism; Z98.42 Cataract extraction status, left eye; Z98.41 Cataract extraction status, right eye; Z83.3 Family history of diabetes mellitus; Z82.5 Family history of asthma and other chronic lower respiratory diseases; Z82.49 Family history of ischemic heart disease and other diseases of the circulatory system; Z86.79 Personal history of other diseases of the circulatory system
CPT/HCPCS: 71045; 71046; 80048; 85025; 85027; 85610; 87070; 87205; 88305; 88309; 88313; 88341; 88342; 94640; 94667; 94668; 94760

== ENCOUNTER 2019-05-15 17:56 | Inpatient (IN) | payer MEDICARE, BC ==
[2019-05-15] MEDS ORDERED: SODIUM CHLORIDE 0.9% 1,000 ML IV STA (18:30)
[2019-05-15] MEDS ORDERED: SODIUM CHLORIDE 0.9% 500 ML 500 ML IV STA ×2 (18:30→22:57)
--- NOTE | 2019-05-15 18:42 | ED ---
SOB HPI - General Chief Complaint: Shortness of Breath Stated Complaint: abn labs Time Seen by Provider: 05/15/19 18:08 Source: patient, RN notes reviewed Mode of arrival: ambulatory Limitations: no limitations - History of Present Illness Initial Comments: This is a 79-year-old female with a history of a recent resection of the right lower lobe of the lung for non-small cell lung cancer she also has a history of stage IV kidney disease who was advised to come in because of elevated potassium she is also shortness of breath. She is not been getting very much because of the chest wall pain. No reports of fevers chills sweats no other symptoms. MD Complaint: shortness of breath - Related Data Home Medications Medication Instructions Recorded Confirmed Allopurinol [Zyloprim] 100 mg PO DAILY 05/26/16 05/15/19 Furosemide [Lasix] 40 mg PO MOWEFR 05/26/16 05/15/19 HYDROcodone/APAP 7.5-325MG [[place] 1 tab PO HS 05/26/16 05/15/19 7.5-325] Telmisartan [Micardis] 40 mg PO DAILY 05/26/16 05/15/19 Warfarin [Coumadin] 5 mg PO MOWEFR 05/26/16 05/15/19 Calcitriol [Rocaltrol] 0.25 mcg PO MOFR 03/27/19 05/15/19 Cholecalciferol (Vitamin D3) 4,000 unit PO DAILY 03/27/19 05/15/19 [Vitamin D3] Ipratropium-Albuterol Nebulize 3 ml INHALATION RT-QID 03/27/19 05/15/19 [Duoneb 0.5 mg-3 mg/3 ml Soln] Vit C/E/Zn/Coppr/Lutein/Zeaxan 1 cap PO BID 04/02/19 05/15/19 [Preservision Areds 2 Softgel] Warfarin [Coumadin] 2.5 mg PO SUTUTHSA 04/25/19 05/15/19 Previous Rx's Medication Instructions Recorded Acetaminophen Tab [Tylenol] 1,000 mg PO Q6HR PRN tab 05/05/19 guaiFENesin [Mucinex] 600 mg PO Q12HR tablet.er 05/05/19 Allergies Allergy/AdvReac Type Severity Reaction Status Date / Time No Known Allergies Allergy Verified 05/15/19 19:02 Review of Systems ROS Statement: Those systems with pertinent positive or pertinent negative responses have been documented in the HPI. ROS Other: All systems not noted in ROS Statement are negative. Past Medical History Past Medical History: Cancer, COPD, Hyperlipidemia, Hypertension, Osteoarthritis (OA), Renal Disease, Thyroid Disorder Additional Past Medical History / Comment(s): lung ca History of Any Multi-Drug Resistant Organisms: None Reported Past Surgical History: Tubal Ligation Additional Past Surgical History / Comment(s): hx blood clot left arm 3 yrs ago - surgery to remove clot-has endurant abdominal stent graft feb 28 2016, lung surgery Past Anesthesia/Blood Transfusion Reactions: Previous Problems w/ Anesthesia, Family History of Problems w/ Anesthesia Additional Past Anesthesia/Blood Transfusion Reaction / Comment(s): Slow to Awaken, patient and daughter. Past Psychological History: No Psychological Hx Reported Smoking Status: Former smoker Past Alcohol Use History: None Reported Past Drug Use History: None Reported - Past Family History Father Family Medical History: COPD, Diabetes Mellitus, Myocardial Infarction ([place]) Mother Additional Family Medical History / Comment(s): at age 31 - cause unknown Brother(s) Additional Family Medical History / Comment(s): states kidney and heart history Sister(s) Family Medical History: Myocardial Infarction ([place]) Additional Family Medical History / Comment(s): dialysis General Exam - General Exam Comments Initial Comments: Is a well-developed with sciatica. Female who is awake alert oriented 3 Limitations: no limitations General appearance: alert, in no apparent distress Head exam: Present: atraumatic, normocephalic, normal inspection Eye exam: Present: normal appearance, PERRL, EOMI. Absent: scleral icterus, conjunctival injection, periorbital swelling ENT exam: Present: mucous membranes dry Neck exam: Present: normal inspection. Absent: tenderness, meningismus, lymphadenopathy Respiratory exam: Present: chest wall tenderness (Well-healing surgical incisions.), decreased breath sounds. Absent: respiratory distress, wheezes, rales, rhonchi, stridor Cardiovascular Exam: Present: regular rate, normal rhythm, normal heart sounds. Absent: systolic murmur, diastolic murmur, rubs, gallop, clicks GI/Abdominal exam: Present: soft, normal bowel sounds. Absent: distended, tenderness, guarding, rebound, rigid Extremities exam: Present: normal inspection, full ROM, normal capillary refill. Absent: tenderness, pedal edema, joint swelling, calf tenderness Back exam: Present: normal inspection Neurological exam: Present: alert, oriented X3, CN II-XII intact Psychiatric exam: Present: normal affect, normal mood Skin exam: Present: warm, dry, intact, normal color. Absent: rash Course Vital Signs 05/15/19 05/15/19 05/15/19 17:58 18:22 18:30 Temperature 98.2 F Pulse Rate 89 90 87 Respiratory 22 17 23 Rate Blood Pressure 110/59 112/63 O2 Sat by Pulse 97 98 98 Oximetry 05/15/19 05/15/19 05/15/19 18:40 18:46 18:50 Temperature Pulse Rate 87 83 Respiratory 15 16 13 Rate Blood Pressure 114/58 114/58 O2 Sat by Pulse 99 99 Oximetry 05/15/19 05/15/19 20:47 22:41 Temperature Pulse Rate 79 86 Respiratory 18 16 Rate Blood Pressure 101/62 112/65 O2 Sat by Pulse 99 96 Oximetry Medical Decision Making - Medical Decision Making I did a long discussion with the patient family regarding findings she does demonstrate evidence against of hyperkalemia renal failure (CHF she will be admitted with consultation by nephrology in by Dr. Petersen's group - Lab Data Result diagrams: 05/15/19 18:35 05/15/19 18:35 Lab Results 05/15/19 05/15/19 05/15/19 Range/Units 18:35 18:35 18:35 WBC 10.8 H (3.8-10.6) k/uL RBC 3.43 L (3.80-5.40) m/uL Hgb 10.5 L (11.4-16.0) gm/dL Hct 33.3 L (34.0-46.0) % MCV 96.9 (80.0-100.0) fL MCH 30.5 (25.0-35.0) pg MCHC 31.4 (31.0-37.0) g/dL RDW 15.3 (11.5-15.5) % Plt Count 331 (150-450) k/uL Neutrophils % 73 % Lymphocytes % 12 % Monocytes % 5 % Eosinophils % 8 % Basophils % 1 % Neutrophils # 7.9 H (1.3-7.7) k/uL Lymphocytes # 1.3 (1.0-4.8) k/uL Monocytes # 0.5 (0-1.0) k/uL Eosinophils # 0.9 H (0-0.7) k/uL Basophils # 0.1 (0-0.2) k/uL Sodium 138 (137-145) mmol/L Potassium 5.6 H (3.5-5.1) mmol/L Chloride 107 (98-107) mmol/L Carbon Dioxide 25 (22-30) mmol/L Anion Gap 6 mmol/L BUN 66 H (7-17) mg/dL Creatinine 1.83 H (0.52-1.04) mg/dL Est GFR (CKD-EPI)AfAm 29 (>60 ml/min/1.73 sqM) Est GFR (CKD-EPI)NonAf 26 (>60 ml/min/1.73 sqM) Glucose 100 H (74-99) mg/dL Calcium 10.0 (8.4-10.2) mg/dL Magnesium 2.3 (1.6-2.3) mg/dL Total Bilirubin 0.5 (0.2-1.3) mg/dL AST 13 L (14-36) U/L ALT 8 L (9-52) U/L Alkaline Phosphatase 58 (38-126) U/L Creatine Kinase <20 L (30-135) U/L NT-Pro-B Natriuret Pep 5070 pg/mL Total Protein 6.4 (6.3-8.2) g/dL Albumin 3.2 L (3.5-5.0) g/dL - EKG Data -: No EKG Interpreted by Me ( 358/420) - Radiology Data Radiology results: report reviewed (I did review the imaging), image reviewed Disposition Clinical Impression: Congestive heart failure, Hyperkalemia, Renal failure syndrome, Dyspnea, History of lung cancer Disposition: ADMITTED IP TO THIS [facility] Condition: Fair Referrals: Shannon Petersen MD [Primary Care Provider] - 1-2 days
[2019-05-15 19:17] LABS: ALT 8 U/L (9-52); AST 13 U/L (14-36); African American GFR (CKD) 29 (>60 ml/min/1.73 sqM); Albumin 3.2 g/dL (3.5-5.0); Alkaline Phosphatase 58 U/L (38-126); Anion Gap 6 mmol/L; Blood Urea Nitrogen 66 mg/dL (7-17); Carbon Dioxide 25 mmol/L (22-30); Chloride 107 mmol/L (98-107); Creatine Kinase <20 U/L (30-135); Glucose 100 mg/dL (74-99); Magnesium 2.3 mg/dL (1.6-2.3); Potassium 5.6 mmol/L (3.5-5.1); Sodium 138 mmol/L (137-145); Total Bilirubin 0.5 mg/dL (0.2-1.3); Total Protein 6.4 g/dL (6.3-8.2)
--- NOTE | 2019-05-15 19:23 | XR ---
EXAMINATION TYPE: XR chest 2V DATE OF EXAM: 05/15/2019 COMPARISON: 05/12/2019 HISTORY: Right lobectomy TECHNIQUE: Frontal and lateral views of the chest are obtained. FINDINGS: There is blunting of right costophrenic angle. Heart size is normal. Trachea is midline. T horacic aorta is atheromatous. IMPRESSION: Right pleural effusion and pleural diaphragmatic reaction without change. No heart failu re.
[2019-05-15 20:06] LABS: Basophils # (A) 0.1 k/uL (0-0.2); Basophils % (A) 1 %; Eosinophils # (A) 0.9 k/uL (0-0.7); Eosinophils % (A) 8 %; HCT 33.3 % (34.0-46.0); HGB 10.5 gm/dL (11.4-16.0); Lymphocytes # (A) 1.3 k/uL (1.0-4.8); Lymphocytes % (A) 12 %; MCH 30.5 pg (25.0-35.0); MCHC 31.4 g/dL (31.0-37.0); MCV 96.9 fL (80.0-100.0); Mean Platelet Volume 8.6; Monocytes # (A) 0.5 k/uL (0-1.0); Monocytes % (A) 5 %; Neutrophils # (A) 7.9 k/uL (1.3-7.7); Neutrophils % (A) 73 %; Platelet Count 331 k/uL (150-450); RBC 3.43 m/uL (3.80-5.40); RDW 15.3 % (11.5-15.5); WBC 10.8 k/uL (3.8-10.6)
[2019-05-15] MEDS ORDERED: NALOXONE 0.4 MG/ML 1 ML VIAL IV PRN (22:53)
[2019-05-15] MEDS ORDERED: FUROSEMIDE 10 MG/ML 4 ML VIAL IV STA (22:55)
[2019-05-15] MEDS ORDERED: SODIUM POLYSTYRENE SULFONATE 15 GM/60 ML BOTTLE PO ONE (22:57)
[2019-05-15] MEDS ORDERED: ACETAMINOPHEN TAB 500 MG TAB PO PRN (22:59)
[2019-05-16] MEDS ORDERED: HYDROcodone/APAP 7.5-325MG 1 EACH TAB PO ONE (00:18)
[2019-05-16] MEDS ORDERED: WARFARIN 2.5 MG TAB PO SCH (01:30)
[2019-05-16] MEDS: IPRATROPIUM-ALBUTEROL 3 ML NEB INHALATION SCH ×4 (07:07→21:00)
[2019-05-16] MEDS ORDERED: LOSARTAN 50 MG TAB PO SCH (09:00)
[2019-05-16] MEDS ORDERED: CALCITRIOL 0.25 MCG CAP PO SCH (09:00)
[2019-05-16] MEDS ORDERED: FUROSEMIDE 10 MG/ML 4 ML VIAL IV SCH (09:00)
[2019-05-16] MEDS: guaiFENesin 600 MG TABLET.ER PO SCH ×2 (09:03→19:57)
[2019-05-16] MEDS: CHOLECALCIFEROL 1,000 UNIT TAB PO SCH (09:03)
[2019-05-16] MEDS: ALLOPURINOL 100 MG TAB PO SCH (09:03)
[2019-05-16 09:59] LABS: INR 1.7 (<1.2)
[2019-05-16 10:07] LABS: Calcium 9.3 mg/dL (8.4-10.2); Potassium 5.2 mmol/L (3.5-5.1)
[2019-05-16] MEDS: VIT A,C & E-LUTEIN-MINERALS 1 EACH TAB PO SCH ×2 (10:33→19:57)
--- NOTE | 2019-05-16 11:26 | P.NPCON ---
History of Present Illness - Reason for Consult chronic renal failure - History of Present Illness Reason for consultation: Chronic kidney disease History of present illness: Patient is a 79-year-old female seen in renal consultation for chronic kidney disease. Patient has chronic kidney disease stage IV with baseline creatinine in the range of 1.8-2.2. Etiology is nephrosclerosis. Patient has history of non-small cell lung cancer and recently underwent resection of the right lower lobe on 05/01/2019. Patient states the sensation she's been maintained on 2 L of oxygen at home. However she came to the hospital due to shortness of breath and and hyperkalemia. Patient's potassium level was 5.6 on admission and is down to 5.2 today. Renal function is at baseline. Patient denies any shortness of breath at this time. No vomiting or diarrhea. Oral intake is fair. She has been voiding. No hematuria or dysuria. Denies use of nonsteroidals. She does have history of hypertension and does take telmisartan at home. She is currently maintained on Cozaar in the hospital. Patient is also on IV Lasix and normal saline at this time. Vital signs are stable. General: The patient appeared well nourished and normally developed. HEENT: Head exam is unremarkable. Neck is without jugular venous distension. LUNGS: Lungs are clear to auscultation and percussion. Breath sounds decreased. HEART: Rate and Rhythm are regular. First and second heart sounds normal. No murmurs, rubs or gallops. ABDOMEN: Abdominal exam reveals normal bowel sounds. Non-tender and non- distended. No evidence of peritonitis. EXTREMITITES: Trace edema. Past Medical History Past Medical History: Cancer, COPD, Hyperlipidemia, Hypertension, Osteoarthritis (OA), Renal Disease, Thyroid Disorder Additional Past Medical History / Comment(s): lung ca History of Any Multi-Drug Resistant Organisms: None Reported Past Surgical History: Tubal Ligation Additional Past Surgical History / Comment(s): hx blood clot left arm 3 yrs ago - surgery to remove clot-has endurant abdominal stent graft feb 28 2016, lung surgery Past Anesthesia/Blood Transfusion Reactions: Previous Problems w/ Anesthesia, Family History of Problems w/ Anesthesia Additional Past Anesthesia/Blood Transfusion Reaction / Comment(s): Slow to Awaken, patient and daughter. Past Psychological History: No Psychological Hx Reported Smoking Status: Former smoker Past Alcohol Use History: None Reported Additional Past Alcohol Use History / Comment(s): Smoked 48 years, Quit 2008 Past Drug Use History: None Reported - Past Family History Father Family Medical History: COPD, Diabetes Mellitus, Myocardial Infarction ([place]) Mother Additional Family Medical History / Comment(s): at age 31 - cause unknown Brother(s) Additional Family Medical History / Comment(s): states kidney and heart history Sister(s) Family Medical History: Myocardial Infarction ([place]) Additional Family Medical History / Comment(s): dialysis Medications and Allergies Home Medications Medication Instructions Recorded Confirmed Type Allopurinol [Zyloprim] 100 mg PO DAILY 05/26/16 05/15/19 History Furosemide [Lasix] 40 mg PO MOWEFR 05/26/16 05/15/19 History HYDROcodone/APAP 7.5-325MG [[place] 1 tab PO HS 05/26/16 05/15/19 History 7.5-325] Telmisartan [Micardis] 40 mg PO DAILY 05/26/16 05/15/19 History Warfarin [Coumadin] 5 mg PO MOWEFR 05/26/16 05/15/19 History Calcitriol [Rocaltrol] 0.25 mcg PO MOFR 03/27/19 05/15/19 History Cholecalciferol (Vitamin D3) 4,000 unit PO DAILY 03/27/19 05/15/19 History [Vitamin D3] Ipratropium-Albuterol Nebulize 3 ml INHALATION RT-QID 03/27/19 05/15/19 History [Duoneb 0.5 mg-3 mg/3 ml Soln] Vit C/E/Zn/Coppr/Lutein/Zeaxan 1 cap PO BID 04/02/19 05/15/19 History [Preservision Areds 2 Softgel] Warfarin [Coumadin] 2.5 mg PO SUTUTHSA 04/25/19 05/15/19 History Acetaminophen Tab [Tylenol] 1,000 mg PO Q6HR PRN tab 05/05/19 05/15/19 Rx guaiFENesin [Mucinex] 600 mg PO Q12HR tablet.er 05/05/19 05/15/19 Rx Allergies Allergy/AdvReac Type Severity Reaction Status Date / Time No Known Allergies Allergy Verified 08/08/19 19:02 Physical Exam Vitals: Vital Signs Temp Pulse Pulse Resp BP BP Pulse Ox 05/16/19 09:13 97.4 F L 82 16 115/67 97 05/16/19 08:30 82 16 05/16/19 07:56 68 16 104/60 99 05/16/19 07:09 70 05/16/19 07:05 78 18 114/75 100 05/16/19 06:30 66 18 91/55 100 05/16/19 05:00 67 18 89/55 100 05/16/19 02:54 74 16 93/50 97 05/16/19 01:33 79 18 102/61 99 05/15/19 22:41 86 16 112/65 96 05/15/19 20:47 79 18 101/62 99 05/15/19 18:50 83 13 114/58 99 05/15/19 18:46 16 05/15/19 18:40 87 15 114/58 99 05/15/19 18:30 87 23 112/63 98 05/15/19 18:22 90 17 98 05/15/19 17:58 98.2 F 89 22 110/59 97 Intake and Output 05/15/19 05/16/19 05/16/19 22:59 06:59 14:59 Other: Weight 73.936 kg Results - Lab Results Most recent lab results Calcium 9.3 mg/dL (8.4-10.2) 05/16/19 09:27 Magnesium 2.3 mg/dL (1.6-2.3) 05/15/19 18:35 05/15/19 18:35 05/16/19 09:27 Assessment and Plan Plan: Assessment: 1. Chronic kidney disease stage IV secondary to nephrosclerosis with baseline creatinine in the range of 1.8-2.2. GFR at baseline. 2. Dyspnea secondary to volume overload. Pleural effusion noted on chest x- ray. 3. Hyperkalemia secondary to chronic kidney disease and ARB. Better. 4. Non-small cell lung cancer status post right lower lobe resection in April 2019. 5. Hypertension with chronic kidney disease. Controlled. 6. Chronic kidney disease mineral bone disease maintained on calcitriol. Plan: Hep-Lock IV fluids. I will decrease Lasix to 40 mg IV once daily. Avoid nephrotoxins. Encourage oral intake. Hold Cozaar if systolic blood pressure less than 120. If potassium level rises again, will need to use alternative to Cozaar. Thank you for the consultation. I will continue to follow the patient with you during her hospital stay.
[2019-05-16] MEDS: HYDROcodone/APAP 7.5-325MG 1 EACH TAB PO PRN ×2 (11:34→23:10)
[2019-05-16 15:03] VITALS: RESP 18
[2019-05-16 15:39] VITALS: BMI 29.8
[2019-05-16] MEDS ORDERED: WARFARIN 5 MG TAB PO SCH (18:00)
[2019-05-16] MEDS ORDERED: HYDROcodone/APAP 7.5-325MG 1 EACH TAB PO SCH (21:00)
[2019-05-17] MEDS: IPRATROPIUM-ALBUTEROL 3 ML NEB INHALATION SCH ×2 (07:32→11:49)
[2019-05-17 07:37] LABS: INR 2.1 (<1.2); Prothrombin Time 20.2 sec (9.0-12.0)
[2019-05-17 07:46] LABS: Calcium 9.1 mg/dL (8.4-10.2)
--- NOTE | 2019-05-17 08:01 | P.PN ---
Subjective Progress Note Date: 05/17/19 Principal diagnosis: This 79-year-old female followed up for hyperkalemia secondary to chronic kidney disease and ARB. She was sent in because of hyperkalemia. She is fairly asymptomatic. She is known with recent diagnosis of squamous cell carcinoma of the lung , underwent wedge resection of right lower lobe dated 05/01/2019 Additionally ultrasound of the abdomen showed a large lobulated fusiform aneurysm in the infrarenal abdominal aorta 10.1 cm long and 6 cm wide with mural thrombus and plaque. She has had a stent placed via her femoral area about 3 years ago. Additionally she had multiple cysts in both right and left kidney right kidney was 9.5 and the left kidney was 9.7. He is also known with hypertension, COPD, abdominal stent graft in 2016 and a left arm clot removed 3 years ago. Objective - Vital Signs Vital signs: Vital Signs Temp 98.3 F 05/17/19 01:20 Pulse 73 05/17/19 01:20 Resp 18 05/17/19 01:20 BP 91/50 05/17/19 01:20 Pulse Ox 99 05/17/19 01:20 Intake & Output 05/16/19 05/17/19 05/17/19 18:59 06:59 18:59 Intake Total 200 1200 Balance 200 1200 Weight 73.936 kg Intake: Intake, IV Titration 900 Amount Sodium Chloride 0.9% 1, 900 000 ml @ 75 mls/hr IV . [id number] STA Rx#:[id number] Oral 200 300 Other: # Voids 1 On examination she is awake alert oriented comfortable eating breakfast she is on nasal cannula oxygen and she is comfortable HEENT exam no JVP neck is supple no facial asymmetry Lungs are clear to auscultation with occasional coarse crackle on the right base Heart sounds are unremarkable for any murmur rub gallop Abdomen soft nontender nondistended no masses felt Extremity exam was trace edema Neurologically awake alert oriented comfortable and cheerful - Labs CBC & Chem 7: 05/15/19 18:35 05/16/19 09:27 Labs: Abnormal Lab Results - Last 24 Hours (Table) 05/16/19 05/16/19 Range/Units 09:27 09:27 PT 17.0 H (9.0-12.0) sec INR 1.7 H (<1.2) Potassium 5.2 H (3.5-5.1) mmol/L Chloride 109 H (98-107) mmol/L BUN 58 H (7-17) mg/dL Creatinine 1.79 H (0.52-1.04) mg/dL Assessment and Plan Assessment: Assessment: 1. Chronic kidney disease stage IV secondary to nephrosclerosis with baseline creatinine in the range of 1.8-2.2. Creatinine is down to 1.79 yesterday, and 1.84 this morning . 2. Mild Dyspnea secondary to recent right lung surgery and right lung pleural effusion Right Pleural effusion noted on chest x-ray. 3. Hyperkalemia secondary to chronic kidney disease and ARB. Better. Potassium today is 5, bicarb is 30 4. Non-small cell lung cancer status post right lower lobe resection 05/01/2019 5. Hypertension with chronic kidney disease. below target at 91/50 . 6. Chronic kidney disease mineral bone disease maintained on calcitriol. Baseline creatinine is 1.7-2, ultrasound shows 9.5 and 9.7 cm kidneys with cysts. 7. 6.5 cm wide infrarenal lobulated aneurysm with mural clots. previously had a stent graft via the femoral approach or 3 years ago 8. left arm clot removed 3 years ago. 9. COPD Plan: 1. DC IV Lasix 2. Reduce Cozaar to 50. 3. Patient can be discharged and followed up closely in the office.
[2019-05-17 08:12] VITALS: BP 102/63; PULSE 94; TEMP 98.9
[2019-05-17] MEDS: ALLOPURINOL 100 MG TAB PO SCH (08:17)
[2019-05-17] MEDS: guaiFENesin 600 MG TABLET.ER PO SCH (08:17)
[2019-05-17] MEDS: CHOLECALCIFEROL 1,000 UNIT TAB PO SCH (08:17)
[2019-05-17] MEDS: VIT A,C & E-LUTEIN-MINERALS 1 EACH TAB PO SCH (08:17)
--- NOTE | 2019-05-17 08:55 | P.HPIM ---
History of Present Illness H&P Date: 05/16/19 Chief Complaint: Shortness of breath/hypokalemia 79-year-old female seen in renal consultation for chronic kidney disease. Patient has chronic kidney disease stage IV with baseline creatinine in the range of 1.8-2.2. Etiology is nephrosclerosis. Patient has history of non- small cell lung cancer and recently underwent resection of the right lower lobe on 05/01/2019. Patient states the sensation she's been maintained on 2 L of oxygen at home. However she came to the hospital due to shortness of breath and and hyperkalemia. Patient's potassium level was 5.6 on admission and is down to 5.2 today. Renal function is at baseline. Patient denies any shortness of breath at this time. No vomiting or diarrhea. Oral intake is fair. She has been voiding. No hematuria or dysuria. Denies use of nonsteroidals. She does have history of hypertension and does take telmisartan at home. She is currently maintained on Cozaar in the hospital. Patient is also on IV Lasix and normal saline at this time. Review of Systems Constitutional: Denies chills, Denies fever Eyes: denies blurred vision, denies loss of vision Ears: deny: decreased hearing Ears, nose, mouth and throat: Denies bleeding gums, Denies epistaxis Cardiovascular: Reports shortness of breath, Denies chest pain, Denies rapid heart beat Respiratory: Denies cough with sputum Gastrointestinal: Denies abdominal pain, Denies nausea, Denies vomiting Genitourinary: Denies dysuria, Denies hematuria Neurological: Denies ataxia, Denies confusion, Denies double vision Psychiatric: Denies irritability Endocrine: Denies cold intolerance, Denies heat intolerance, Denies polydipsia, Denies polyphagia, Denies polyuria Hematologic/Lymphatic: Denies easy bleeding, Denies easy bruising, Denies ly mphadenopathy Past Medical History Past Medical History: Cancer, COPD, Hyperlipidemia, Hypertension, Osteoarthritis (OA), Renal Disease, Thyroid Disorder Additional Past Medical History / Comment(s): lung ca History of Any Multi-Drug Resistant Organisms: None Reported Past Surgical History: Tubal Ligation Additional Past Surgical History / Comment(s): hx blood clot left arm 3 yrs ago - surgery to remove clot-has endurant abdominal stent graft feb 28 2016, lung surgery Past Anesthesia/Blood Transfusion Reactions: Previous Problems w/ Anesthesia, Family History of Problems w/ Anesthesia Additional Past Anesthesia/Blood Transfusion Reaction / Comment(s): Slow to Awaken, patient and daughter. Past Psychological History: No Psychological Hx Reported Smoking Status: Former smoker Past Alcohol Use History: None Reported Additional Past Alcohol Use History / Comment(s): Smoked 48 years, Quit 2008 Past Drug Use History: None Reported - Past Family History Father Family Medical History: COPD, Diabetes Mellitus, Myocardial Infarction (ME) Mother Additional Family Medical History / Comment(s): at age 31 - cause unknown Brother(s) Additional Family Medical History / Comment(s): states kidney and heart history Sister(s) Family Medical History: Myocardial Infarction (ME) Additional Family Medical History / Comment(s): dialysis Medications and Allergies Home Medications Medication Instructions Recorded Confirmed Type Allopurinol [Zyloprim] 100 mg PO DAILY 05/26/16 05/15/19 History Furosemide [Lasix] 40 mg PO MOWEFR 05/26/16 05/15/19 History HYDROcodone/APAP 7.5-325MG [[place] 1 tab PO HS 05/26/16 05/15/19 History 7.5-325] Telmisartan [Micardis] 40 mg PO DAILY 05/26/16 05/15/19 History Warfarin [Coumadin] 5 mg PO MOWEFR 05/26/16 05/15/19 History Calcitriol [Rocaltrol] 0.25 mcg PO MOFR 03/27/19 05/15/19 History Cholecalciferol (Vitamin D3) 4,000 unit PO DAILY 03/27/19 05/15/19 History [Vitamin D3] Ipratropium-Albuterol Nebulize 3 ml INHALATION RT-QID 03/27/19 05/15/19 History [Duoneb 0.5 mg-3 mg/3 ml Soln] Vit C/E/Zn/Coppr/Lutein/Zeaxan 1 cap PO BID 04/02/19 05/15/19 History [Preservision Areds 2 Softgel] Warfarin [Coumadin] 2.5 mg PO SUTUTHSA 04/25/19 05/15/19 History Acetaminophen Tab [Tylenol] 1,000 mg PO Q6HR PRN tab 05/05/19 05/15/19 Rx guaiFENesin [Mucinex] 600 mg PO Q12HR tablet.er 05/05/19 05/15/19 Rx Allergies Allergy/AdvReac Type Severity Reaction Status Date / Time No Known Allergies Allergy Verified 05/15/19 19:02 Physical Exam Vitals: Vital Signs Temp Pulse Pulse Resp BP BP Pulse Ox 05/16/19 09:13 97.4 F L 82 16 115/67 97 05/16/19 08:30 82 16 05/16/19 07:56 68 16 104/60 99 05/16/19 07:09 70 05/16/19 07:05 78 18 114/75 100 05/16/19 06:30 66 18 91/55 100 05/16/19 05:00 67 18 89/55 100 05/16/19 02:54 74 16 93/50 97 05/16/19 01:33 79 18 102/61 99 05/15/19 22:41 86 16 112/65 96 05/15/19 20:47 79 18 101/62 99 05/15/19 18:50 83 13 114/58 99 05/15/19 18:46 16 05/15/19 18:40 87 15 114/58 99 05/15/19 18:30 87 23 112/63 98 05/15/19 18:22 90 17 98 05/15/19 17:58 98.2 F 89 22 110/59 97 Intake and Output 05/15/19 05/16/19 05/16/19 22:59 06:59 14:59 Other: Weight 73.936 kg PHYSICAL EXAMINATION: GENERAL: The patient is alert and oriented x3, not in any acute distress. Well developed, well nourished. HEENT: Pupils are round and equally reacting to light. EOMI. No scleral icterus. No conjunctival pallor. Normocephalic, atraumatic. No pharyngeal erythema. No thyromegaly. CARDIOVASCULAR: S1 and S2 present. No murmurs, rubs, or gallops. PULMONARY: Chest is clear to auscultation, no wheezing or crackles. ABDOMEN: Soft, nontender, nondistended, normoactive bowel sounds. No palpable organomegaly. MUSCULOSKELETAL: No joint swelling or deformity. EXTREMITIES: No cyanosis, clubbing, or pedal edema. NEUROLOGICAL: Gross neurological examination did not reveal any focal deficits. SKIN: No rashes. Results CBC & Chem 7: 05/15/19 18:35 05/17/19 07:06 Labs: Abnormal Lab Results - Last 24 Hours (Table) 05/15/19 05/15/19 05/16/19 Range/Units 18:35 18:35 09:27 WBC 10.8 H (3.8-10.6) k/uL RBC 3.43 L (3.80-5.40) m/uL Hgb 10.5 L (11.4-16.0) gm/dL Hct 33.3 L (34.0-46.0) % Neutrophils # 7.9 H (1.3-7.7) k/uL Eosinophils # 0.9 H (0-0.7) k/uL PT (9.0-12.0) sec INR (<1.2) Potassium 5.6 H 5.2 H (3.5-5.1) mmol/L Chloride 109 H (98-107) mmol/L BUN 66 H 58 H (7-17) mg/dL Creatinine 1.83 H 1.79 H (0.52-1.04) mg/dL Glucose 100 H (74-99) mg/dL AST 13 L (14-36) U/L ALT 8 L (9-52) U/L Creatine Kinase <20 L (30-135) U/L Albumin 3.2 L (3.5-5.0) g/dL 05/16/19 Range/Units 09:27 WBC (3.8-10.6) k/uL RBC (3.80-5.40) m/uL Hgb (11.4-16.0) gm/dL Hct (34.0-46.0) % Neutrophils # (1.3-7.7) k/uL Eosinophils # (0-0.7) k/uL PT 17.0 H (9.0-12.0) sec INR 1.7 H (<1.2) Potassium (3.5-5.1) mmol/L Chloride (98-107) mmol/L BUN (7-17) mg/dL Creatinine (0.52-1.04) mg/dL Glucose (74-99) mg/dL AST (14-36) U/L ALT (9-52) U/L Creatine Kinase (30-135) U/L Albumin (3.5-5.0) g/dL Thrombosis Risk Factor Assmnt - Choose All That Apply Each Factor Represents 1 point: Abnormal pulmonary function (COPD) Each Risk Factor Represents 3 Points: Age 75 years or older, History of DVT/PE Thrombosis Risk Factor Assessment Total Risk Factor Score: 7 Thrombosis Risk Factor Assessment Level: High Risk Assessment and Plan Assessment: 1. Acute on chronic kidney disease stage IV; secondary to nephro sclerosis - Nephrology is following and recommending to Hep-Lock IV fluids and decrease L asix to 40 mg IV daily; patient is encouraged oral fluid intake; avoid nephrotoxins and hypotension; we will hold blood pressure meds if systolic blood pressures less than 120; monitor strict ANNEMARIE's, renal function and electrolytes 2. Hyperkalemia; possibly secondary to acute on chronic renal failure versus medication effect - Nephrology recommending to continue Cozaar at this point and hold if systolic blood pressure is less than 120; potassium level is 5.2 this morning and recommendations are to replace Cozaar if potassium level rises again; we will continue to monitor electrolytes and make changes accordingly 3. Dyspnea; multifactorial - Possibly volume overload versus pleural effusion noted on chest x-ray; patient was initially started on Lasix 40 mg IV every 12 hours which has been reduced to a daily dose by nephrology; continue to monitor closely; we will consult pulmonary service if patient continues to complain of shortness of breath 4. Hypertension; fairly controlled on current medication 5. Non-small cell lung cancer; status post right lower lobe resection in April 2019 - Outpatient follow-up with oncology 6. History of DVT left upper extremity; continue with home dose of Coumadin 7. DVT prophylaxis; SCDs; systemic anticoagulation with Coumadin CODE STATUS; full code Time with Patient: Greater than 30
[2019-05-17] MEDS ORDERED: LOSARTAN 50 MG TAB PO SCH (09:00)
[2019-05-17] MEDS ORDERED: FUROSEMIDE 10 MG/ML 4 ML VIAL IV SCH (09:00)
--- NOTE | 2019-05-30 12:38 | P.DS ---
Providers Date of admission: 05/16/19 13:27 Expected date of discharge: 05/17/19 Attending physician: Hossein Solano MD Consults: 05/15/19 22:54 Consult Physician Routine Consulting Provider: La Hawley Consult Reason/Comments: Hyperkalemia, stage IV kidney disease Do you want consulting provider notified?: Yes Primary care physician: Shannon Nicola [place] [facility] Course: 79-year-old female seen in renal consultation for chronic kidney disease. Patient has chronic kidney disease stage IV with baseline creatinine in the range of 1.8-2.2. Etiology is nephrosclerosis. Patient has history of non- small cell lung cancer and recently underwent resection of the right lower lobe on 05/01/2019. Patient states the sensation she's been maintained on 2 L of oxygen at home. However she came to the hospital due to shortness of breath and and hyperkalemia. Patient's potassium level was 5.6 on admission and is down to 5.2 today. Renal function is at baseline. Patient denies any shortness of breath at this time. No vomiting or diarrhea. Oral intake is fair. She has been voiding. No hematuria or dysuria. Denies use of nonsteroidals. She does have history of hypertension and does take telmisartan at home. She is currently maintained on Cozaar in the hospital. Patient is also on IV Lasix and normal saline at this time. Plan of action run in the hospital is as follows 1. Acute on chronic kidney disease stage IV; secondary to nephro sclerosis - Nephrology is following and recommending to Hep-Lock IV fluids and decrease Lasix to 40 mg IV daily; patient is encouraged oral fluid intake; avoid nephrotoxins and hypotension; we will hold blood pressure meds if systolic blood pressures less than 120; monitor strict ANNEMARIE's, renal function and electrolytes 2. Hyperkalemia; possibly secondary to acute on chronic renal failure versus medication effect - Nephrology recommending to continue Cozaar at this point and hold if systolic blood pressure is less than 120; potassium level is 5.2 this morning and recommendations are to replace Cozaar if potassium level rises again; we will continue to monitor electrolytes and make changes accordingly 3. Dyspnea; multifactorial - Possibly volume overload versus pleural effusion noted on chest x-ray; patient was initially started on Lasix 40 mg IV every 12 hours which has been reduced to a daily dose by nephrology; continue to monitor closely; we will consult pulmonary service if patient continues to complain of shortness of breath 4. Hypertension; fairly controlled on current medication 5. Non-small cell lung cancer; status post right lower lobe resection in April 2019 - Outpatient follow-up with oncology 6. 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 She has had a stent placed via her femoral area about 3 years ago. Additionally she had multiple cysts in both right and left kidney right kidney was 9.5 and the left kidney was 9.7. Patient was evaluated by nephrology and IV diuretics were discontinued; patient was recommended to decrease dose of Cozaar to 50 mg daily; patient remained stable and was cleared for discharge to follow with nephrology as an outpatient Patient Condition at Discharge: Fair Plan - Discharge Summary New Discharge Prescriptions: New Losartan [Cozaar] 50 mg PO DAILY #30 tab Continue Allopurinol [Zyloprim] 100 mg PO DAILY HYDROcodone/APAP 7.5-325MG [[place] 7.5-325] 1 tab PO HS Furosemide [Lasix] 40 mg PO MOWEFR Warfarin [Coumadin] 5 mg PO MOWEFR Ipratropium-Albuterol Nebulize [Duoneb 0.5 mg-3 mg/3 ml Soln] 3 ml INHALATION RT-QID Cholecalciferol (Vitamin D3) [Vitamin D3] 4,000 unit PO DAILY Calcitriol [Rocaltrol] 0.25 mcg PO MOFR Vit C/E/Zn/Coppr/Lutein/Zeaxan [Preservision Areds 2 Softgel] 1 cap PO BID Warfarin [Coumadin] 2.5 mg PO SUTUTHSA guaiFENesin [Mucinex] 600 mg PO Q12HR tablet.er Acetaminophen Tab [Tylenol] 1,000 mg PO Q6HR PRN tab PRN Reason: Fever And/ Or Pain Discontinued Telmisartan [Micardis] 40 mg PO DAILY Discharge Medication List Allopurinol [Zyloprim] 100 mg PO DAILY 05/26/16 [History] Furosemide [Lasix] 40 mg PO MOWEFR 05/26/16 [History] HYDROcodone/APAP 7.5-325MG [[place] 7.5-325] 1 tab PO HS 05/26/16 [History] Warfarin [Coumadin] 5 mg PO MOWEFR 05/26/16 [History] Calcitriol [Rocaltrol] 0.25 mcg PO MOFR 03/27/19 [History] Cholecalciferol (Vitamin D3) [Vitamin D3] 4,000 unit PO DAILY 03/27/19 [History] Ipratropium-Albuterol Nebulize [Duoneb 0.5 mg-3 mg/3 ml Soln] 3 ml INHALATION RT-QID 03/27/19 [History] Vit C/E/Zn/Coppr/Lutein/Zeaxan [Preservision Areds 2 Softgel] 1 cap PO BID 04/02/19 [History] Warfarin [Coumadin] 2.5 mg PO SUTUTHSA 04/25/19 [History] Acetaminophen Tab [Tylenol] 1,000 mg PO Q6HR PRN tab 05/05/19 [Rx] guaiFENesin [Mucinex] 600 mg PO Q12HR tablet.er 05/05/19 [Rx] Losartan [Cozaar] 50 mg PO DAILY #30 tab 05/17/19 [Rx] Follow up Appointment(s)/Referral(s): Shannon Petersen MD [Primary Care Provider] - 1-2 days (CALL OFFICE ON SUNDAY TO SCHEDULE APPOINTMENT, OFFICE CLOSED AT TIME OF DISCHARGE.) [facility], [NON-STAFF] - John Jules DO [STAFF PHYSICIAN] - 1 Week (CALL OFFICE ON SUNDAY TO SCHEDULE APPOINTMENT, OFFICE CLOSED AT TIME OF DISCHARGE.) Patient Instructions/Handouts: Heart Failure (DC), Chronic Kidney Disease (DC), Hyperkalemia (DC) Discharge Disposition: HOME WITH HOME HEALTH SERVICES
--- NOTE | 2019-06-10 12:43 | CDI ---
Documentation Clarification Form Date: 06/10/2019 12:40:00 PM From: Niya Hughes Phone: If you have a question regarding this query, please contact Dayanara Baum at [phone] between 8am and 5pm. Admit Date: 05/16/2019 1:27:00 PM Patient Name: Sweta Dixon Visit Number: [id number] Discharge Date: 05/17/2019 3:10:00 PM ATTENTION: The Clinical Documentation Specialists (CDI) and [facility] Coding Staff appreciate your assistance in clarifying documentation. Please respond to the clarification below the line at the bottom and electronically sign. The CDI & [facility] Coding staff will review the response and follow-up if needed. Please note: Queries are made part of the Legal Health Record. If you have any questions, please contact the author of this message via ITS. Dr. Hossein Solano CHF is documented in the ER report and admit order. Volume overload is documented in the discharge summary, H&P and in Dr. Jules's consult note. History/Risk Factors: Hypertension Clinical Indicators: Fluid overload, shortness of breath VS/Pulse OX: T. 98.2, P. 89, R. 22, BP 110/59, Pulse Ox. 97% on room air BNP: 5070 Echocardiogram Results: Not done Chest X Ray: Right pleural effusion and pleural diaphragmatic reaction without change. No heart failure. Treatment: IV Lasix In your professional opinion, can you please clarify the acuity and type of CHF if known? Systolic Heart Failure: Chronic Acute on Chronic Diastolic Heart Failure: Chronic Acute on Chronic Systolic & Diastolic Heart Failure: Chronic Acute on Chronic Heart Failure Unable to Determine Other, please specify unable to determine MTDD
--- NOTE | 2019-06-10 12:55 | CDI ---
Documentation Clarification Form Date: 06/10/2019 12:52:00 PM From: Niya Hughes Phone: If you have a question regarding this query, please contact Purvi Baum at [phone] between 8am and 5pm. Admit Date: 05/16/2019 1:27:00 PM Patient Name: Sweta Dixon Visit Number: [id number] Discharge Date: 05/17/2019 3:10:00 PM ATTENTION: The Clinical Documentation Specialists (CDI) and [facility] Coding Staff appreciate your assistance in clarifying documentation. Please respond to the clarification below the line at the bottom and electronically sign. The CDI & [facility] Coding staff will review the response and follow-up if needed. Please note: Queries are made part of the Legal Health Record. If you have any questions, please contact the author of this message via ITS. Dr. Hossein Solano Acute renal failure was documented in the H&P and discharge summary. History/Risk Factors: Hypertension, stage 4 CKD Patients baseline creatinine: 1.8 - 2.2 Clinical Indicators: Fluid overload Current BUN/Cr/GFR: 66 /1. 83 / 2.6 Transplant status: None, Hemodialysis status: None Consults: Dr. Jules documented volume overload. IVF: 1 liter sodium chloride bolus Other: IV Lasix In order to capture the severity of condition, please clarify if the condition signifies: Acute renal failure Ruled Out Acute renal failure, Please specify etiology (if known): Other, please specify Unable to determine Ac renal failure due to dehydation MTDD
--- NOTE | 2019-06-10 13:05 | CDI ---
Documentation Clarification Form Date: 06/10/2019 1:03:00 PM From: Niya Hughes Phone: If you have a question regarding this query, please contact Purvi Baum at [phone] between 8am and 5pm. Admit Date: 05/16/2019 1:27:00 PM Patient Name: Sweta Dixon Visit Number: [id number] Discharge Date: 05/17/2019 3:10:00 PM ATTENTION: The Clinical Documentation Specialists (CDI) and [facility] Coding Staff appreciate your assistance in clarifying documentation. Please respond to the clarification below the line at the bottom and electronically sign. The CDI & [facility] Coding staff will review the response and follow-up if needed. Please note: Queries are made part of the Legal Health Record. If you have any questions, please contact the author of this message via ITS. Dr. Hossein Solano The patient presented with a history of COPD. History/Risk Factors: COPD Tobacco use: History of smoking Home oxygen: 2L Clinical Indicators: Oxygen dependence Vital signs: T. 98.2, P. 89, R. 22, BP 110/59, Pulse oximetry: 97% on room air. Lung/Breathing assessment: Dyspnea, lungs clear to auscultation, no wheezing or crackles. Treatment: Breathing tx: Duoneb Continuous Pulse ox O2: 2 - 3 liter per nasal cannula In your professional opinion, can you please clarify if these findings signify one of the following conditions? COPD Respiratory Failure With hypercapnia? (pCO2 >50 and pH <7.35) Acute Chronic With hypoxia? (pO2 <60 mm Hg or SpO2 <91% on room air) Acute Chronic Respiratory Insufficiency Other Diagnosis, please specify Unable to determine MTDD
== END 2019-05-17 15:10 | disposition home health service (06) | DRG 683 ==
LOC: EC 17:56 → 3NMEDONC 23:01 → 4SSUR 05-16 05:41 → OBSVTOIN 05-16 13:27
PROVIDERS: ADMIT Internal Medicine; ATTEND Internal Medicine
DX: N17.9 Acute kidney failure, unspecified (principal); C34.31 Malignant neoplasm of lower lobe, right bronchus or lung; I13.0 Hypertensive heart and chronic kidney disease with heart failure and stage 1 through stage 4 chronic kidney disease, or unspecified chronic kidney disease; E87.5 Hyperkalemia; N18.4 Chronic kidney disease, stage 4 (severe); J44.9 Chronic obstructive pulmonary disease, unspecified; E86.0 Dehydration; I50.9 Heart failure, unspecified; I51.3 Intracardiac thrombosis, not elsewhere classified; I71.4 Abdominal aortic aneurysm, without rupture; E78.5 Hyperlipidemia, unspecified; E83.89 Other disorders of mineral metabolism; M19.90 Unspecified osteoarthritis, unspecified site; E07.9 Disorder of thyroid, unspecified; Z79.01 Long term (current) use of anticoagulants; Z79.899 Other long term (current) drug therapy; Z90.2 Acquired absence of lung [part of]; Z99.81 Dependence on supplemental oxygen; Z87.891 Personal history of nicotine dependence; Z86.718 Personal history of other venous thrombosis and embolism; Z98.51 Tubal ligation status; Z82.49 Family history of ischemic heart disease and other diseases of the circulatory system; Z82.5 Family history of asthma and other chronic lower respiratory diseases; Z83.3 Family history of diabetes mellitus
CPT/HCPCS: 36415; 71046; 80048; 80053; 82550; 83735; 83880; 85025; 85610; 94640; 96361; 96374; 99285

== ENCOUNTER → 2019-07-25 | Outpatient (CLI) | payer MEDICARE, BC ==
[2019-07-25 17:21] LABS: Appearance,Urine Clear (Clear); Bacteria,Urine Rare /hpf; Bilirubin,Urine Negative (Negative); Blood,Urine Negative (Negative); Color,Urine Light Yellow; Glucose,Urine (UA) Negative (Negative); Hyaline Casts,Urine 12 /lpf (0-2); Ketones,Urine Negative (Negative); Leukocyte Esterase,Urine Trace (Negative); Mucus,Urine Rare /hpf; Nitrite,Urine Negative (Negative); Protein,Urine Negative (Negative); Specific Gravity,Urine 1.008 (1.001-1.035); Squamous Epithelial Cell,Urine 3 /hpf (0-4); Urobilinogen,Urine <2.0 mg/dL (<2.0)
[2019-07-25 17:22] LABS: INR 1.1 (<1.2); Prothrombin Time 11.9 sec (9.0-12.0)
[2019-07-25 17:22] LABS: Basophils # (A) 0.1 k/uL (0-0.2); Basophils % (A) 1 %; Eosinophils # (A) 0.5 k/uL (0-0.7); Eosinophils % (A) 6 %; HCT 37.8 % (34.0-46.0); HGB 11.2 gm/dL (11.4-16.0); Hypochromasia Moderate; Lymphocytes # (A) 1.1 k/uL (1.0-4.8); Lymphocytes % (A) 13 %; MCH 29.7 pg (25.0-35.0); MCHC 29.7 g/dL (31.0-37.0); MCV 100.1 fL (80.0-100.0); Macrocytosis Slight; Monocytes # (A) 0.5 k/uL (0-1.0); Monocytes % (A) 5 %; Neutrophils # (A) 6.4 k/uL (1.3-7.7); Neutrophils % (A) 73 %; Platelet Count 297 k/uL (150-450); RBC 3.78 m/uL (3.80-5.40); RDW 14.6 % (11.5-15.5); WBC 8.7 k/uL (3.8-10.6)
[2019-07-26 02:05] LABS: African American GFR (CKD) 30.1 (60.0-200.0); Anion Gap 12.5 mmol/L (4.00-12.00); BUN/Creat Ratio 26.67 Ratio (12.00-20.00); Calcium 9.3 mg/dL (8.7-10.3); Carbon Dioxide 23.5 mmol/L (21.6-31.8); Magnesium 1.9 mg/dL (1.5-2.4); Phosphorus 3.3 mg/dL (2.4-5.1); Potassium 5.1 mmol/L (3.5-5.5); Uric Acid 6.1 mg/dL (2.9-7.7)
[2019-07-26 15:51] LABS: Iron Saturation 14.72 (12.00-45.00)
[2019-07-26 16:00] LABS: Ferritin 395.4 ng/mL (10.0-291.0)
== END ==
LOC: LABWHC1 15:50
PROVIDERS: ATTEND Internal Medicine Nephrology
DX: N18.4 Chronic kidney disease, stage 4 (severe) (principal); N25.81 Secondary hyperparathyroidism of renal origin; N39.0 Urinary tract infection, site not specified; D50.9 Iron deficiency anemia, unspecified; E55.9 Vitamin D deficiency, unspecified; D63.1 Anemia in chronic kidney disease; M10.9 Gout, unspecified
CPT/HCPCS: 36415; 80048; 81001; 82728; 83540; 83550; 83735; 83970; 84100; 84550; 85025; 85610; 87086

== ENCOUNTER → 2019-10-18 | Outpatient (CLI) | payer MEDICARE, BC ==
[2019-10-18 08:39] LABS: Basophils # (A) 0.1 k/uL (0-0.2); Basophils % (A) 1 %; Eosinophils # (A) 1.1 k/uL (0-0.7); Eosinophils % (A) 12 %; HCT 40.3 % (34.0-46.0); HGB 12.2 gm/dL (11.4-16.0); Hypochromasia Slight; Lymphocytes # (A) 1.8 k/uL (1.0-4.8); Lymphocytes % (A) 21 %; MCH 28.6 pg (25.0-35.0); MCHC 30.3 g/dL (31.0-37.0); MCV 94.5 fL (80.0-100.0); Mean Platelet Volume 7.4; Monocytes # (A) 0.6 k/uL (0-1.0); Monocytes % (A) 6 %; Neutrophils # (A) 5.1 k/uL (1.3-7.7); Neutrophils % (A) 58 %; Platelet Count 305 k/uL (150-450); RBC 4.26 m/uL (3.80-5.40); RDW 14.8 % (11.5-15.5); WBC 8.8 k/uL (3.8-10.6)
[2019-10-18 08:48] LABS: INR 1.5 (<1.2); Prothrombin Time 14.8 sec (9.0-12.0)
[2019-10-18 17:49] LABS: ALT <8 U/L (8-44); AST 13 U/L (13-35); African American GFR (CKD) 28.2 (60.0-200.0); Alkaline Phosphatase 64 U/L (41-126); Calcium 9.4 mg/dL (8.7-10.3); Carbon Dioxide 28.3 mmol/L (21.6-31.8); Chloride 101 mmol/L (96-109); Chol/HDL Ratio 4.16; Cholesterol 208 mg/dL (0-200); Globulin 2.6 g/dL (1.6-3.3); Glucose 98 mg/dL (70-110); LDL Cholesterol,Calculated 129.6 mg/dL (0.0-131.0); Non-African American GFR(CKD) 24.3 (60.0-200.0); Sodium 138 mmol/L (135-145); Total Bilirubin 0.6 mg/dL (0.3-1.2); Total Protein 6.5 g/dL (6.2-8.2)
== END ==
LOC: LABWHC1 08:03
PROVIDERS: ATTEND Internal Medicine
DX: Z00.00 Encounter for general adult medical examination without abnormal findings (principal); E78.5 Hyperlipidemia, unspecified; I10 Essential (primary) hypertension; D64.9 Anemia, unspecified; Z79.01 Long term (current) use of anticoagulants
CPT/HCPCS: 36415; 80053; 80061; 84439; 84443; 85025; 85610

== ENCOUNTER → 2020-03-24 | Outpatient (CLI) | payer MEDICARE, BC ==
[2020-03-24 15:17] LABS: HCT 36.7 % (34.0-46.0); HGB 10.9 gm/dL (11.4-16.0); Hypochromasia Marked; MCH 28.2 pg (25.0-35.0); MCHC 29.6 g/dL (31.0-37.0); MCV 95.1 fL (80.0-100.0); Mean Platelet Volume 7.3; Platelet Count 371 k/uL (150-450); RBC 3.86 m/uL (3.80-5.40); RDW 15.2 % (11.5-15.5); WBC 11.2 k/uL (3.8-10.6)
[2020-03-24 16:25] LABS: Appearance,Urine Cloudy (Clear); Bacteria,Urine Many /hpf; Bilirubin,Urine Negative (Negative); Blood,Urine Negative (Negative); Color,Urine Yellow; Glucose,Urine (UA) Negative (Negative); Hyaline Casts,Urine 5 /lpf (0-2); Ketones,Urine Negative (Negative); Leukocyte Esterase,Urine Negative (Negative); Mucus,Urine Rare /hpf; Nitrite,Urine Negative (Negative); Protein,Urine Trace (Negative); RBC,Urine 1 /hpf (0-5); Specific Gravity,Urine 1.017 (1.001-1.035); Squamous Epithelial Cell,Urine 4 /hpf (0-4); WBC,Urine 4 /hpf (0-5)
[2020-03-25 02:04] LABS: % Iron Saturation 7.57 (12.00-45.00); African American GFR (CKD) 26.3 (60.0-200.0); Albumin 3.5 g/dL (3.80-4.90); Albumin/Globulin Ratio 1.17 (1.60-3.17); Anion Gap 8.5 mmol/L (4.00-12.00); Calcium 9.1 mg/dL (8.7-10.3); Carbon Dioxide 22.5 mmol/L (21.6-31.8); Ferritin 424.7 ng/mL (10.0-291.0); Magnesium 2.1 mg/dL (1.5-2.4); Non-African American GFR(CKD) 22.7 (60.0-200.0); Phosphorus 3.3 mg/dL (2.4-5.1); Potassium 5.3 mmol/L (3.5-5.5); Total Bilirubin 0.3 mg/dL (0.3-1.2); Total Protein 6.5 g/dL (6.2-8.2); Uric Acid 6.4 mg/dL (2.9-7.7)
== END | disposition home or self-care (01) ==
LOC: LABWHC1 14:44
PROVIDERS: ATTEND Internal Medicine
DX: N18.4 Chronic kidney disease, stage 4 (severe) (principal)
CPT/HCPCS: 36415; 80053; 81001; 82306; 82728; 83540; 83550; 83735; 83970; 84100; 84550; 85027

== ENCOUNTER → 2020-09-27 | Outpatient (CLI) | payer MEDICARE, BC | END | disposition home or self-care (01) | LOC: LABWHC1 11:15 | PROVIDERS: ATTEND Internal Medicine | DX: Z20.828 Contact with and (suspected) exposure to other viral communicable diseases (principal); R11.0 Nausea; R50.9 Fever, unspecified | CPT/HCPCS: U0003; C9803 ==

== ENCOUNTER 2020-10-02 08:29 | Inpatient (IN) | payer MEDICARE, BC ==
[2020-10-02] MEDS ORDERED: ACETAMINOPHEN TAB 500 MG TAB PO STA (08:47)
[2020-10-02 09:04] LABS: Basophils # (A) 0.1 k/uL (0-0.2); Basophils % (A) 0 %; Eosinophils # (A) 0.1 k/uL (0-0.7); Eosinophils % (A) 1 %; HCT 35.8 % (34.0-46.0); HGB 11.7 gm/dL (11.4-16.0); Lymphocytes # (A) 0.4 k/uL (1.0-4.8); Lymphocytes % (A) 2 %; MCH 31.2 pg (25.0-35.0); MCHC 32.8 g/dL (31.0-37.0); MCV 95.3 fL (80.0-100.0); Mean Platelet Volume 7.5; Monocytes # (A) 0.7 k/uL (0-1.0); Monocytes % (A) 3 %; Neutrophils # (A) 22.9 k/uL (1.3-7.7); Neutrophils % (A) 95 %; Platelet Count 354 k/uL (150-450); RBC 3.76 m/uL (3.80-5.40); RDW 14.2 % (11.5-15.5); WBC 24.2 k/uL (3.8-10.6)
--- NOTE | 2020-10-02 09:05 | ED ---
General Adult HPI - General Chief complaint: Shortness of Breath Stated complaint: Shortness of Breath Time Seen by Provider: 10/02/20 08:30 Source: patient, RN notes reviewed, old records reviewed Mode of arrival: ambulatory Limitations: no limitations - History of Present Illness Initial comments: This is an 80-year-old female presents to the emergency with a past medical history significant for lung cancer and a lobectomy. Patient comes in today b ecause she's had difficulty breathing 1 week. Patient states she was tested for: Week ago and was negative. Patient denies any fever or chills but she does states she has a cough. Patient denies any chest pain or palpitations. Patient denies any abdominal pain patient denies nausea vomiting diarrhea. Patient denies any lightheadedness or dizziness. Patient denies any Tenderness or leg swelling. - Related Data Home Medications Medication Instructions Recorded Confirmed Furosemide [Lasix] 40 mg PO MOWEFR 05/26/16 05/15/19 HYDROcodone/APAP 7.5-325MG [[place] 1 tab PO HS 05/26/16 05/15/19 7.5-325] allopurinoL [Zyloprim] 100 mg PO BID 05/26/16 05/15/19 Cholecalciferol (Vitamin D3) 4,000 unit PO DAILY 03/27/19 05/15/19 [Vitamin D3] Ipratropium-Albuterol Nebulize 3 ml INHALATION RT-BID 03/27/19 05/15/19 [Duoneb 0.5 mg-3 mg/3 ml Soln] calcitrioL [Rocaltrol] 0.25 mcg PO MOFR 03/27/19 05/15/19 Vit C/E/Zn/Coppr/Lutein/Zeaxan 1 cap PO BID 04/02/19 05/15/19 [Preservision Areds 2 Softgel] Azithromycin [Zithromax] 500 mg PO DAILY 10/02/20 10/02/20 Budesonide/Formoterol Fumarate 2 puff INHALATION RT-BID 10/02/20 10/02/20 [Symbicort 160-4.5 Mcg Inhaler] Ferrous Sulfate [Feosol] 325 mg PO DAILY 10/02/20 10/02/20 Losartan Potassium 100 mg PO DAILY 10/02/20 10/02/20 Warfarin [Coumadin] 2.5 mg PO HS 10/02/20 10/02/20 methylPREDNISolone Dose Pack See Taper PO DAILY 10/02/20 10/02/20 [Medrol Dose Pack] Allergies Allergy/AdvReac Type Severity Reaction Status Date / Time No Known Allergies Allergy Verified 10/02/20 09:51 Review of Systems ROS Statement: Those systems with pertinent positive or pertinent negative responses have been documented in the HPI. ROS Other: All systems not noted in ROS Statement are negative. Past Medical History Past Medical History: Cancer, COPD, Hyperlipidemia, Hypertension, Osteoarthritis (OA), Renal Disease, Thyroid Disorder Additional Past Medical History / Comment(s): lung ca History of Any Multi-Drug Resistant Organisms: None Reported Past Surgical History: Tubal Ligation Additional Past Surgical History / Comment(s): hx blood clot left arm 3 yrs ago - surgery to remove clot-has endurant abdominal stent graft feb 28 2016, lung surgery Past Anesthesia/Blood Transfusion Reactions: Previous Problems w/ Anesthesia, Family History of Problems w/ Anesthesia Additional Past Anesthesia/Blood Transfusion Reaction / Comment(s): Slow to Awaken, patient and daughter. Past Psychological History: No Psychological Hx Reported Smoking Status: Former smoker Past Alcohol Use History: None Reported Past Drug Use History: None Reported - Past Family History Father Family Medical History: COPD, Diabetes Mellitus, Myocardial Infarction ([place]) Mother Additional Family Medical History / Comment(s): at age 31 - cause unknown Brother(s) Additional Family Medical History / Comment(s): states kidney and heart history Sister(s) Family Medical History: Myocardial Infarction ([place]) Additional Family Medical History / Comment(s): dialysis General Exam - General Exam Comments Initial Comments: GENERAL: Patient is well-developed and well-nourished. Patient is nontoxic and well- hydrated and is in mild distress. ENT: Neck is soft and supple. No significant lymphadenopathy is noted. Oropharynx is clear. Moist mucous membranes. Neck has full range of motion without eliciting any pain. EYES: The sclera were anicteric and conjunctiva were pink and moist. Extraocular movements were intact and pupils were equal round and reactive to light. Eyelids were unremarkable. PULMONARY: Unlabored respirations. Good breath sounds bilaterally. No audible rales rhonchi or wheezing was noted. CARDIOVASCULAR: Patient is tachycardic at 120 beats a minute and he has an irregular rate and rhythm ABDOMEN: Soft and nontender with normal bowel sounds. SKIN: Skin is clear with no lesions or rashes and otherwise unremarkable. NEUROLOGIC: Patient is alert and oriented x3. Cranial nerves II through XII are grossly intact. Motor and sensory are also intact. Normal speech, volume and content. Symmetrical smile. MUSCULOSKELETAL: Normal extremities with adequate strength and full range of motion. LYMPHATICS: No significant lymphadenopathy is noted PSYCHIATRIC: Normal psychiatric evaluation. Limitations: no limitations Course Vital Signs 10/02/20 10/02/20 08:30 09:08 Temperature 99.7 F H Pulse Rate 114 H 120 H Respiratory 20 20 Rate Blood Pressure 121/63 121/72 O2 Sat by Pulse 90 L 99 Oximetry Medical Decision Making - Medical Decision Making EKG shows atrial fibrillation at a rapid ventricular response at 127 beats minute QRS is 86 QT interval 06 QTC is 444. Chest x-ray shows right-sided pneumonia multiple PATIENT was started on antibiotics. Patient was started on heparin because of the A. fib as well as non-STEMI. I spoke with because he agreed to admit the patient admitted the patient remaining orders I continued heparin and antibiotics on the floor - Lab Data Result diagrams: 10/02/20 08:49 10/02/20 08:49 Lab Results 10/02/20 10/02/20 10/02/20 Range/Units 08:49 08:49 08:49 WBC 24.2 H (3.8-10.6) k/uL RBC 3.76 L (3.80-5.40) m/uL Hgb 11.7 (11.4-16.0) gm/dL Hct 35.8 (34.0-46.0) % MCV 95.3 (80.0-100.0) fL MCH 31.2 (25.0-35.0) pg MCHC 32.8 (31.0-37.0) g/dL RDW 14.2 (11.5-15.5) % Plt Count 354 (150-450) k/uL MPV 7.5 Neutrophils % 95 % Lymphocytes % 2 % Monocytes % 3 % Eosinophils % 1 % Basophils % 0 % Neutrophils # 22.9 H (1.3-7.7) k/uL Lymphocytes # 0.4 L (1.0-4.8) k/uL Monocytes # 0.7 (0-1.0) k/uL Eosinophils # 0.1 (0-0.7) k/uL Basophils # 0.1 (0-0.2) k/uL PT 16.6 H (9.0-12.0) sec INR 1.7 H (<1.2) APTT 33.7 H (22.0-30.0) sec D-Dimer 4.17 H (<0.60) mg/L FEU Sodium 132 L (137-145) mmol/L Potassium 4.4 (3.5-5.1) mmol/L Chloride 102 (98-107) mmol/L Carbon Dioxide 24 (22-30) mmol/L Anion Gap 6 mmol/L BUN 61 H (7-17) mg/dL Creatinine 1.98 H (0.52-1.04) mg/dL Est GFR (CKD-EPI)AfAm 27 (>60 ml/min/1.73 sqM) Est GFR (CKD-EPI)NonAf 23 (>60 ml/min/1.73 sqM) Glucose 123 H (74-99) mg/dL Plasma Lactic Acid Micky (0.7-2.0) mmol/L Calcium 9.6 (8.4-10.2) mg/dL Magnesium 2.3 (1.6-2.3) mg/dL Total Bilirubin 0.8 (0.2-1.3) mg/dL AST 20 (14-36) U/L ALT 25 (4-34) U/L Alkaline Phosphatase 102 (38-126) U/L Lactate Dehydrogenase 441 (313-618) U/L Troponin I (0.000-0.034) ng/mL C-Reactive Protein 285.7 H (<10.0) mg/L Total Protein 6.5 (6.3-8.2) g/dL Albumin 3.0 L (3.5-5.0) g/dL Coronavirus (PCR) (Not Detectd) 10/02/20 10/02/20 10/02/20 Range/Units 08:49 08:49 08:49 WBC (3.8-10.6) k/uL RBC (3.80-5.40) m/uL Hgb (11.4-16.0) gm/dL Hct (34.0-46.0) % MCV (80.0-100.0) fL MCH (25.0-35.0) pg MCHC (31.0-37.0) g/dL RDW (11.5-15.5) % Plt Count (150-450) k/uL MPV Neutrophils % % Lymphocytes % % Monocytes % % Eosinophils % % Basophils % % Neutrophils # (1.3-7.7) k/uL Lymphocytes # (1.0-4.8) k/uL Monocytes # (0-1.0) k/uL Eosinophils # (0-0.7) k/uL Basophils # (0-0.2) k/uL PT (9.0-12.0) sec INR (<1.2) APTT (22.0-30.0) sec D-Dimer (<0.60) mg/L FEU Sodium (137-145) mmol/L Potassium (3.5-5.1) mmol/L Chloride (98-107) mmol/L Carbon Dioxide (22-30) mmol/L Anion Gap mmol/L BUN (7-17) mg/dL Creatinine (0.52-1.04) mg/dL Est GFR (CKD-EPI)AfAm (>60 ml/min/1.73 sqM) Est GFR (CKD-EPI)NonAf (>60 ml/min/1.73 sqM) Glucose (74-99) mg/dL Plasma Lactic Acid Micky 1.2 (0.7-2.0) mmol/L Calcium (8.4-10.2) mg/dL Magnesium (1.6-2.3) mg/dL Total Bilirubin (0.2-1.3) mg/dL AST (14-36) U/L ALT (4-34) U/L Alkaline Phosphatase (38-126) U/L Lactate Dehydrogenase (313-618) U/L Troponin I 0.181 H* (0.000-0.034) ng/mL C-Reactive Protein (<10.0) mg/L Total Protein (6.3-8.2) g/dL Albumin (3.5-5.0) g/dL Coronavirus (PCR) Not Detected (Not Detectd) Critical Care Time Critical Care Time: Yes Total Critical Care Time: 35 Disposition Clinical Impression: Atrial fibrillation with rapid ventricular response, Pneumonia, Non-STEMI (non- ST elevated myocardial infarction) Disposition: ADMITTED IP TO THIS HOSP Referrals: Shannon Petersen MD [Primary Care Provider] - 1-2 days Time of Disposition: 09:55
--- NOTE | 2020-10-02 09:14 | XR ---
EXAMINATION TYPE: XR chest 1V portable DATE OF EXAM: 10/02/2020 Comparison: 08/03/2020 Clinical History: 80-year-old female with cough, Suspected COVID-19 pneumonia Findings: Hyperinflation. Heart upper limits of normal in size. Small right effusion. Patchy opacity throughout the right mid and lower lung. Impression: COPD with patchy right mid and lower lung infiltrate. Small right effusion. Correlate for pneumonia. COVID pneumonia is possible as well.
[2020-10-02 09:17] LABS: Calcium 9.6 mg/dL (8.4-10.2); Magnesium 2.3 mg/dL (1.6-2.3); Potassium 4.4 mmol/L (3.5-5.1); Total Bilirubin 0.8 mg/dL (0.2-1.3); Total Protein 6.5 g/dL (6.3-8.2)
[2020-10-02 09:21] LABS: INR 1.7 (<1.2); Partial Thromboplastin Time 33.7 sec (22.0-30.0); Prothrombin Time 16.6 sec (9.0-12.0)
[2020-10-02 09:26] LABS: D-Dimer 4.17 mg/L FEU (<0.60)
[2020-10-02 09:49] LABS: C Reactive Protein 285.7 mg/L (<10.0)
[2020-10-02] MEDS ORDERED: HEPARIN SODIUM,PORCINE 5,000 UNIT/ML 1 ML VIAL IV ONE (09:54)
[2020-10-02] MEDS ORDERED: PNEUMONIA PROTOCOL UTILIZED 1 EACH MISC PO PRN (10:00)
[2020-10-02] MEDS ORDERED: AZITHROMYCIN 500 MG in SODIUM CHLORIDE 0.9% 250 ML IVPB STA (10:00)
[2020-10-02] MEDS: HEPARIN SOD,PORK IN 0.45% NACL 25,000 UNIT in 0.45% NACL 1 250ML.BAG IV SCH (10:34)
--- NOTE | 2020-10-02 11:11 | P.HPIM ---
History of Present Illness This is a pleasant 80 years old female with past medical history of COPD, hypertension, hyperlipidemia, osteoarthritis, hypothyroidism, lung cancer. History of atrial fibrillation on Coumadin. She is a patient of Dr. Melvin Ortega. She also follow-up with Dr. David and Dr. Chavez. Presents because of dyspnea of 1 week duration, associated with coughing and phlegm when she do her nebulizer at home but no chest pain or dizziness. She talked to her PCP Dr. Charles over the phone on Sunday and prescribed her Zithromax and Medrol Dosepak. She denies abdominal pain or nausea vomiting or urinary complaints. No leg pain or swelling. No dizziness. She denies smoking or or call abuse She does not know why she takes warfarin, she denies history of A. fib and states she had clotted her left arm 10 years ago On admission she has low-grade temperature of 99.7, she is tachycardic at 10/18/2019. Restoril vitals are stable. She is saturating 90% on room air Labs showed leukocytosis of 24.2K. creatinine is elevated at 1.9 which is at baseline of 1.8-2.3. D-dimer is elevated at 4.17. INR is 1.7. Liver enzymes are unremarkable. Troponin is elevated at 0.18 which is new for her. High C- reactive protein to 85. [place] virus test PCR is not detected EKG showing atrial fibrillation with heart rate of 127. Chest x-ray: COPD with patchy right mid and lower lung infiltrate. Small right effusion. Correlate for pneumonia. Call the pneumonia is possible as well. Unfortunately no Chest x-ray image to be reviewed by myself In the emergency room patient was started with Zithromax and ceftriaxone and heparin drip. Review of Systems CONSTITUTIONAL: No fever, no malaise, no fatigue. HEENT: No recent visual problems or hearing problems. Denied any sore throat. CARDIOVASCULAR: No orthopnea, PND, no palpitations, no syncope. PULMONARY: No chest wall tenderness, no hemoptysis. GASTROINTESTINAL: No diarrhea, no nausea, no vomiting, no abdominal pain. Normoactive bowel sounds. NEUROLOGICAL: No headaches, no weakness, no numbness. HEMATOLOGICAL: Denies any bleeding or petechiae. GENITOURINARY: Denies any burning micturition, frequency, or urgency. MUSCULOSKELETAL/RHEUMATOLOGICAL: Denies any joint pain, swelling, or any muscle pain. ENDOCRINE: Denies any polyuria or polydipsia. Past Medical History Past Medical History: Cancer, COPD, Hyperlipidemia, Hypertension, Osteoarthritis (OA), Renal Disease, Thyroid Disorder Additional Past Medical History / Comment(s): lung ca History of Any Multi-Drug Resistant Organisms: None Reported Past Surgical History: Tubal Ligation Additional Past Surgical History / Comment(s): hx blood clot left arm 3 yrs ago - surgery to remove clot-has endurant abdominal stent graft feb 28 2016, lung surgery Past Anesthesia/Blood Transfusion Reactions: Previous Problems w/ Anesthesia, Family History of Problems w/ Anesthesia Additional Past Anesthesia/Blood Transfusion Reaction / Comment(s): Slow to Awaken, patient and daughter. Past Psychological History: No Psychological Hx Reported Smoking Status: Former smoker Past Alcohol Use History: None Reported Past Drug Use History: None Reported - Past Family History Father Family Medical History: COPD, Diabetes Mellitus, Myocardial Infarction ([place]) Mother Additional Family Medical History / Comment(s): at age 31 - cause unknown Brother(s) Additional Family Medical History / Comment(s): states kidney and heart history Sister(s) Family Medical History: Myocardial Infarction ([place]) Additional Family Medical History / Comment(s): dialysis Medications and Allergies Home Medications Medication Instructions Recorded Confirmed Type Furosemide [Lasix] 40 mg PO MOWEFR 05/26/16 10/02/20 History HYDROcodone/APAP 7.5-325MG [[place] 1 tab PO HS 05/26/16 10/02/20 History 7.5-325] allopurinoL [Zyloprim] 100 mg PO BID 05/26/16 10/02/20 History Cholecalciferol (Vitamin D3) 4,000 unit PO DAILY 03/27/19 10/02/20 History [Vitamin D3] Ipratropium-Albuterol Nebulize 3 ml INHALATION RT-BID 03/27/19 10/02/20 History [Duoneb 0.5 mg-3 mg/3 ml Soln] calcitrioL [Rocaltrol] 0.25 mcg PO MOFR 03/27/19 10/02/20 History Vit C/E/Zn/Coppr/Lutein/Zeaxan 1 cap PO BID 04/02/19 10/02/20 History [Preservision Areds 2 Softgel] Azithromycin [Zithromax] 500 mg PO DAILY 10/02/20 10/02/20 History Budesonide/Formoterol Fumarate 2 puff INHALATION RT-BID 10/02/20 10/02/20 History [Symbicort 160-4.5 Mcg Inhaler] Ferrous Sulfate [Feosol] 325 mg PO DAILY 10/02/20 10/02/20 History Losartan Potassium 100 mg PO DAILY 10/02/20 10/02/20 History Warfarin [Coumadin] 2.5 mg PO HS 10/02/20 10/02/20 History methylPREDNISolone Dose Pack See Taper PO DAILY 10/02/20 10/02/20 History [Medrol Dose Pack] Allergies Allergy/AdvReac Type Severity Reaction Status Date / Time No Known Allergies Allergy Verified 10/02/20 09:51 Physical Exam Vitals: Vital Signs Temp Pulse Resp BP Pulse Ox 10/02/20 10:39 112 H 18 98/61 96 10/02/20 10:15 111 H 18 98/61 100 10/02/20 09:08 120 H 20 121/72 99 10/02/20 08:30 99.7 F H 114 H 20 121/63 90 L Intake and Output 10/01/20 10/02/20 10/02/20 22:59 06:59 14:59 Other: Weight 68.039 kg GENERAL: The patient is alert and oriented x3, not in any acute distress. Well developed, well nourished. HEENT: Pupils are round and equally reacting to light. EOMI. No scleral icterus. No conjunctival pallor. Normocephalic, atraumatic. No pharyngeal erythema. No thyromegaly. CARDIOVASCULAR: S1 and S2 present. No murmurs, rubs, or gallops. -PULMONARY: Chest is clear to auscultation, no wheezing or crackles. Some decreased breath sounds on the right side ABDOMEN: Soft, nontender, nondistended, normoactive bowel sounds. No palpable organomegaly. MUSCULOSKELETAL: No joint swelling or deformity. EXTREMITIES: No cyanosis, clubbing, or pedal edema. NEUROLOGICAL: Gross neurological examination did not reveal any focal deficits. SKIN: No rashes. No petechiae Results CBC & Chem 7: 10/02/20 08:49 10/02/20 08:49 Labs: Abnormal Lab Results - Last 24 Hours (Table) 10/02/20 10/02/20 10/02/20 Range/Units 08:49 08:49 08:49 WBC 24.2 H (3.8-10.6) k/uL RBC 3.76 L (3.80-5.40) m/uL Neutrophils # 22.9 H (1.3-7.7) k/uL Lymphocytes # 0.4 L (1.0-4.8) k/uL PT 16.6 H (9.0-12.0) sec INR 1.7 H (<1.2) APTT 33.7 H (22.0-30.0) sec D-Dimer 4.17 H (<0.60) mg/L FEU Sodium 132 L (137-145) mmol/L BUN 61 H (7-17) mg/dL Creatinine 1.98 H (0.52-1.04) mg/dL Glucose 123 H (74-99) mg/dL Troponin I (0.000-0.034) ng/mL C-Reactive Protein 285.7 H (<10.0) mg/L Albumin 3.0 L (3.5-5.0) g/dL 10/02/20 Range/Units 08:49 WBC (3.8-10.6) k/uL RBC (3.80-5.40) m/uL Neutrophils # (1.3-7.7) k/uL Lymphocytes # (1.0-4.8) k/uL PT (9.0-12.0) sec INR (<1.2) APTT (22.0-30.0) sec D-Dimer (<0.60) mg/L FEU Sodium (137-145) mmol/L BUN (7-17) mg/dL Creatinine (0.52-1.04) mg/dL Glucose (74-99) mg/dL Troponin I 0.181 H* (0.000-0.034) ng/mL C-Reactive Protein (<10.0) mg/L Albumin (3.5-5.0) g/dL Assessment and Plan Assessment: A. fib with RVR with Elevated troponin Patchy right mid and lower lung infiltrate Elevated d-dimer, patient is already on warfarin and heparin drip COPD Hypertension Hyperlipidemia Ostio-arthritis Chronic kidney disease, stage IV Hypothyroidism History of lung cancer Plan: This is a pleasant 80 years old female who presents with A. fib and RVR and possible right pneumonia. Continue with antibiotic, follow-up sputum culture. Check for ocovid pneumonia. We'll ask for pulmonary consult. Transfer And Line Up Worker already consulted and we will follow the recommendation. Continue with warfarin pharmacy to dose Labs and medication were reviewed.. Continue same treatment. Continue with symptomatic treatment. Resume home medication. Monitor lytes and vitals. DVT and GI prophylaxis. Further recommendations depends on the clinical course of the patient DVT prophylaxis:s heparin GI Prophylaxis: Pepcid PT/OT: Pending Prognosis is guarded
[2020-10-02] MEDS ORDERED: methylPREDNISolone 4 MG TAB TAPER PO SCH (11:15)
[2020-10-02] MEDS ORDERED: IPRATROPIUM-ALBUTEROL 3 ML NEB INHALATION SCH (12:00)
[2020-10-02] MEDS: FAMOTIDINE 20 MG/2 ML VIAL IV SCH ×2 (12:35→20:22)
--- NOTE | 2020-10-02 13:11 | CONS ---
CONSULTATION CHIEF COMPLAINT: Shortness of breath. Sweta is an 80-year-old lady with history of atrial fibrillation, COPD, who presented to hospital complaining of shortness of breath. She had low-grade fever and was short of breath on Sunday, was seen by her primary care physician. Apparently underwent a Covid test that was negative. She was becoming more short of breath due to which she came to the hospital. The patient does not have any fever it shows, but she does have some cough and then is somewhat short of breath. She does not have abdominal pain or abdominal leg swelling. The patient's white cell count is elevated at 24. D-dimer was 4. INR is subtherapeutic at 1.7. She had another coronavirus test that is negative. Troponin is slightly elevated. However, the BUN and creatinine are elevated too. The EKG shows atrial fibrillation with rapid ventricular rate and nonspecific ST-T wave changes. The patient does not have any chest pain, sustained palpitations or focal neurological deficits. PAST MEDICAL HISTORY: Significant for persistent atrial fibrillation and COPD and hypertension. MEDICATIONS: At home included Lasix, [place], DuoNeb, losartan. Medrol Dosepak, Rocaltrol, Zyloprim, Coumadin, and Zithromax. ALLERGIES: There are no known drug allergies. FAMILY HISTORY: Negative for premature coronary artery disease. SOCIAL HISTORY: Negative for current smoking, EtOH abuse, or drug abuse. REVIEW OF SYSTEMS: HEENT is unremarkable. Cardiac as described above. Respiratory as described above. GI negative. : Negative. ALLERGY/IMMUNOLOGY: Negative. Skin negative. Musculoskeletal significant for arthritis. PSYCHOSOCIAL: Negative. Endocrine negative. Hematological negative. Derm negative. Constitutional negative. Oncological negative. [employer] negative. EXAM: Heart rate is 100 beats per minute. Blood pressure is 98/60. Respirations 18, O2 saturation 96% on 2 L. there is no jugular venous distention. Chest exam reveals good air entry bilaterally. I do not hear any crackles or rhonchi. Heart exam reveals first and second heart sounds, irregular rhythm and a systolic murmur at the apex. ABDOMEN: Soft. Exam of extremities reveals mild edema. Peripheral pulses are felt. LABS: Show that the white cell count is elevated. Hemoglobin is 11.7. INR is 1.7. Potassium is 4.4, BUN is 61, creatinine is 1.98. Troponin is mildly elevated at 0.1. CRP is elevated. Coronavirus is negative. ASSESSMENT: Persistent atrial fibrillation with poorly controlled ventricular rate. Elevated troponin probably related to the renal insufficiency. I will obtain further sets of troponins to see is this is a non ST-segment elevation VT. I will obtain a 2D echo to evaluate LV function. PETER / IRA: [id number] /
--- NOTE | 2020-10-02 15:12 | ECHOF ---
Referral Reason:mo MEASUREMENTS -------- HEIGHT: 157.5 cm WEIGHT: 68.0 kg BP: 98/61 RVIDd: 4.1 cm (< 3.3) IVSd: 1.3 cm (0.6 - 1.1) LVIDd: 2.9 cm (3.9 - 5.3) LVPWd: 1.3 cm (0.6 - 1.1) IVSs: 1.3 cm LVIDs: 1.6 cm LVPWs: 1.8 cm LAESV Index (A-L): 26.12 ml/m Ao Diam: 3.0 cm (2.0 - 3.7) AV Cusp: 1.6 cm (1.5 - 2.6) MV EXCURSION: 17.153 mm (> 18.000) MV EF SLOPE: 88 mm/s (70 - 150) EPSS: 0.1 cm RAP: 20.00 mmHg RVSP: 58.32 mmHg FINDINGS -------- Atrial fibrillation. This was a technically adequate study. The left ventricular size is normal. There is mild concentric left ventricular hypertrophy. Overa ll left ventricular systolic function is normal with, an EF between 55 - 60 %. Left ventricular tahir limg pressure cannot be estimated due to Atrial fibrillation. The right ventricle is moderate to severely enlarged. Normal LA size by volume 22+/-6 ml/m2. The right atrium is mildly enlarged. Interatrial and interventricular septum intact. There is mild to moderate aortic valve sclerosis. There is no evidence of aortic regurgitation. T here is no evidence of aortic stenosis. [id number] mitral regurgitation is present. Moderate tricuspid regurgitation present. There is moderate to severe pulmonary hypertension. The right ventricular systolic pressure, as measured by Doppler, is 58.32mmHg. Trace/mild (physiologic) pulmonic regurgitation. The aortic root size is normal. The inferior vena cava is dilated with poor inspiratory collapse which is consistent with estimated r ight atrial pressure of 20 mmHg. There is no pericardial effusion. CONCLUSIONS -------- 1. The left ventricular size is normal. 2. There is mild concentric left ventricular hypertrophy. 3. Overall left ventricular systolic function is normal with, an EF between 55 - 60 %. 4. Left ventricular fillimg pressure cannot be estimated due to Atrial fibrillation. 5. The right ventricle is moderate to severely enlarged. 6. The right atrium is mildly enlarged. 7. There is mild to moderate aortic valve sclerosis. 8. [id number] mitral regurgitation is present. 9. Moderate tricuspid regurgitation present. 10. There is moderate to severe pulmonary hypertension. 11. The right ventricular systolic pressure, as measured by Doppler, is 58.32mmHg. 12. Trace/mild (physiologic) pulmonic regurgitation. 13. The inferior vena cava is dilated with poor inspiratory collapse which is consistent with estimat ed right atrial pressure of 20 mmHg. VULCAN CREWMEMBER: Jelly Baltazar RDCS
[2020-10-02] MEDS: ALBUTEROL HFA INHALER INHALATION SCH ×2 (15:56→19:08)
[2020-10-02 17:06] LABS: Ferritin 909.2 ng/mL (10.0-291.0)
[2020-10-02] MEDS ORDERED: WARFARIN 2.5 MG TAB PO ONE (18:00)
--- NOTE | 2020-10-02 18:12 | CONS ---
CONSULTATION PULMONARY/CRITICAL CARE CONSULTATION: DATE OF SERVICE: 10/02/2020 This is an 80-year-old female who apparently saw my partner on the , which was this past Sunday. At that time, the patient apparently had upper respiratory tract symptoms and she was prescribed a Medrol Dosepak and a Z-Abelardo. The patient states that she has completed both now and she is not feeling any better. Her complaints include shortness of breath and fever. She denies any cough. She is not producing any phlegm. She is not wheezing. No tightness in the chest. She does not think either of those two medications helped very much at all. Her daughter texted me earlier today about her mother and I suggested coming to the emergency room because she has already been treated with a Medrol Dosepak and Z-Abelardo. In fact, I am not sure how her daughter had my cell number. Anyway, the patient does have a history of lung cancer. In the past she had a wedge resection right lower lobe and she did not require any chemo or radiation. Currently feeling about the same right now. She is getting saline at 50 mL an hour, a heparin drip and also 2 L nasal cannula. MEDICATIONS: Her home medications are reviewed. She is on [place], zyloprim, vitamin D3, DuoNeb, Rocaltrol, eye vitamins, Zithromax, Symbicort, iron, losartan, warfarin and a Medrol Dosepak. Both the Z-Abelardo and the Medrol Dosepak were completed today. ALLERGIES: Denied. MEDICAL HISTORY: Positive for lung cancer, status post wedge resection right lower lobe, without the need for chemo radiation. The patient also has a history of COPD, hyperlipidemia, hypertension, DJD, and hypothyroidism. SURGICAL HISTORY: Includes tubal ligation, a wedge resection right lower lobe for lung cancer, and surgery on her right arm to remove a blood clot three years ago. In addition, she has an abdominal stent graft and she had the lobectomy as I mentioned previously. SOCIAL HISTORY: Positive for previous tobacco use. She denies any alcohol use or illicit drug use. FAMILY HISTORY: Positive for a father with COPD, diabetes and myocardial infarction, mother with who at an early age of unknown cause, a brother with kidney and heart disease, and a sister with heart attack. REVIEW OF SYSTEMS: CONSTITUTIONAL: Fever, weakness. NEUROLOGIC: Negative. HEENT: Negative. CARDIOVASCULAR: Negative. PULMONARY: Shortness of breath, minimal dry cough. GI: Negative. : Negative. RHEUMATOLOGIC: Negative. IMMUNOLOGIC: Negative. ENDOCRINOLOGIC: Negative. DERMATOLOGIC: Negative. PHYSICAL EXAMINATION: Vital signs are reviewed. Temperature is 98.8, T-max is 99.7, heart rate is 112 and irregular, consistent with atrial fibrillation. Respiratory rate 20, blood pressure 98/61 with mean of 73, 2 L saturation is 100%. She appears in no acute distress. Resting comfortably. Nasal O2 at 2 L. HEENT: Examination is grossly unremarkable. NECK: Supple. Full range of motion. No adenopathy. Neck veins are flat. CARDIOVASCULAR: Examination reveals a regular rhythm rate. Heart rate about 112 beats per minute. S1, S2 normal. Heart sounds are distant. No murmur. LUNGS: Reveal a few scattered mild rhonchi. Adventitious lung sounds are more right than left-sided. No wheezes or crackles. ABDOMEN: Soft. Bowel sounds are heard. EXTREMITIES are intact. No cyanosis, clubbing, or edema. SKIN: Without rash. NEUROLOGIC: Examination is nonfocal. LABS: Reviewed. White count 24.2, hemoglobin 11.7, hematocrit 35.8, platelet count 354,000. PT 16.6, INR 1.7, PTT is 33.7. D-dimer 4.17. Sodium 132, potassium 4.4, chloride 102, CO2 24, anion gap is 6. BUN and creatinine were 61 and 1.98. LDH 441. C-reactive protein 285.7. Troponins were 0.181, 0.181 and 0.218. Albumin 3. COVID testing was negative. She had the rapid antigen test done by [employer]. Microbiology is negative. Chest x-ray shows some patchy infiltrates throughout the right lung. EKG was consistent with atrial fibrillation with RVR. Current medications reviewed. The patient is on albuterol inhaler, zyloprim, Zithromax, Symbicort, Rocaltrol, Rocephin, vitamin D3, famotidine, iron, Lasix, heparin drip, [place] losartan, Medrol Dosepak, Spiriva and warfarin. ASSESSMENT: 1. Pneumonia, primarily involving the right lung, which could be community-acquired pneumonia and/or COVID-19 infection. Her COVID-19 rapid test was negative on Sunday. 2. History of underlying chronic obstructive pulmonary disease. 3. Atrial fibrillation with rapid ventricular response. 4. Previous diagnosis of non-small cell lung cancer, status post right lower lobe wedge resection, not requiring any chemo or radiation therapy subsequently. 5. History of chronic obstructive pulmonary disease from previous tobacco use. 6. Hyperlipidemia. 7. Hypertension. 8. Degenerative joint disease. 9. Chronic kidney disease. 10.History of thyroid disease. PLAN: I will go ahead and do the PCR test on this patient. In addition, we will make sure the patient is on the vitamin C, vitamin D3, and zinc. Additional recommendations and suggestions are forthcoming. I will place her on Decadron. MMODL / IJN: [id number] /
[2020-10-02] MEDS: SYMBICORT 160-4.5 MCG INHALER INHALATION SCH (19:10)
[2020-10-02] MEDS: HYDROcodone/APAP 7.5-325MG 1 EACH TAB PO PRN (20:21)
[2020-10-02] MEDS: allopurinoL 100 MG TAB PO SCH (20:22)
[2020-10-02] MEDS ORDERED: WARFARIN 2.5 MG TAB PO SCH (21:00)
[2020-10-03] MEDS: ALBUTEROL HFA INHALER INHALATION SCH ×4 (08:17→19:24)
[2020-10-03] MEDS: SYMBICORT 160-4.5 MCG INHALER INHALATION SCH ×2 (08:17→19:24)
--- NOTE | 2020-10-03 08:26 | XR ---
EXAMINATION TYPE: XR chest 2V DATE OF EXAM: 10/03/2020 COMPARISON: 10/02/2020 HISTORY: 80-year-old female follow-up pneumonia TECHNIQUE: AP and lateral views FINDINGS: Hyperinflation. Small right pleural effusion with adjacent bands of atelectasis. Heart upper limits o f normal in size. Continued airspace opacity throughout the right mid lung. IMPRESSION: COPD with continued small right effusion and right midlung airspace disease.
[2020-10-03 08:56] LABS: Basophils # (A) 0.1 k/uL (0-0.2); Basophils % (A) 0 %; Eosinophils # (A) 0.1 k/uL (0-0.7); Eosinophils % (A) 1 %; HCT 32.9 % (34.0-46.0); HGB 10.4 gm/dL (11.4-16.0); Lymphocytes # (A) 0.6 k/uL (1.0-4.8); Lymphocytes % (A) 4 %; MCH 30.3 pg (25.0-35.0); MCHC 31.5 g/dL (31.0-37.0); MCV 96.1 fL (80.0-100.0); Mean Platelet Volume 7.6; Monocytes # (A) 0.9 k/uL (0-1.0); Monocytes % (A) 5 %; Neutrophils # (A) 15.2 k/uL (1.3-7.7); Neutrophils % (A) 89 %; Platelet Count 332 k/uL (150-450); RBC 3.43 m/uL (3.80-5.40); RDW 14.2 % (11.5-15.5); WBC 17.1 k/uL (3.8-10.6)
[2020-10-03] MEDS ORDERED: LOSARTAN 50 MG TAB PO SCH (09:00)
[2020-10-03] MEDS ORDERED: dexAMETHasone 2 MG TAB PO SCH (09:00)
[2020-10-03 09:07] LABS: INR 1.8 (<1.2); Prothrombin Time 17.7 sec (9.0-12.0)
[2020-10-03 09:15] LABS: Calcium 9.2 mg/dL (8.4-10.2); Potassium 4.7 mmol/L (3.5-5.1)
[2020-10-03] MEDS: ASCORBIC ACID 500 MG TAB PO SCH (09:44)
[2020-10-03] MEDS: FERROUS SULFATE 325 MG TAB PO SCH (09:45)
[2020-10-03] MEDS: AZITHROMYCIN 500 MG TAB PO SCH (09:45)
[2020-10-03] MEDS: ZINC SULFATE 220 MG CAP PO SCH (09:45)
[2020-10-03] MEDS: CHOLECALCIFEROL 1,000 UNIT TAB PO SCH (09:45)
[2020-10-03] MEDS: FAMOTIDINE 20 MG/2 ML VIAL IV SCH ×2 (09:45→20:02)
[2020-10-03] MEDS: allopurinoL 100 MG TAB PO SCH ×2 (09:45→20:02)
[2020-10-03] MEDS: TIOTROPIUM 2.5 MCG INHALER INHALATION SCH (11:35)
--- NOTE | 2020-10-03 12:21 | P.PN ---
Subjective Progress Note Date: 10/03/20 HISTORY OF PRESENT ILLNESS: Patient examined this morning the bedside. Patient denies any chest pain or pressure. She denies shortness of breath. Troponin 0.181. 0.218. 0.267. She remains on IV heparin. She is also receiving Coumadin. INR is 1.8 today. Echocardiogram completed revealed ejection fraction 55-60%, mild to moderate aortic valve sclerosis, mild to moderate maureen l regurgitation, moderate tricuspid regurgitation, moderate to severe pulmonary hypertension. PHYSICAL EXAM: VITAL SIGNS: Reviewed. GENERAL: Well-developed in no acute distress. NECK: Supple. No JVD or thyromegaly LUNGS: Respirations even and unlabored. Lungs essentially clear to auscultation bilaterally. HEART: Regular rate and rhythm. S1 and S2 heard. Systolic murmur EXTREMITIES: Normal range of motion. No clubbing or cyanosis. Peripheral pulses intact. Trace bilateral lower extremity edema ASSESSMENT: Pneumonia, right lung Paroxysmal atrial fibrillation with RVR, on long-term antiquated regulation with Coumadin Subtherapeutic INR Chronic kidney disease Abnormal troponins, suspect secondary to CKD Valvular heart disease: mild to moderate aortic valve sclerosis, mild to moderate mitral regurgitation, moderate tricuspid regurgitation Moderate to severe pulmonary hypertension Hypertension Hypokalemia PLAN: Continue current cardiac medications Continue telemetry monitoring Continue Coumadin. Monitor INR. May continue heparin drip until INR is therapeutic. Further recommendations pending patient's course Nurse practitioner note has been reviewed by physician. Signing provider agrees with the documented findings, assessment, and plan of care. Objective - Vital Signs Vital signs: Vital Signs Temp 98.5 F 10/03/20 08:00 Pulse 92 10/03/20 08:00 Resp 18 10/03/20 08:00 BP 106/57 10/03/20 08:00 Pulse Ox 99 10/03/20 08:00 Intake & Output 10/02/20 10/03/20 10/03/20 18:59 06:59 18:59 Intake Total 302.19 69.056 180 Balance 302.19 69.056 180 Weight 68.039 kg 69.8 kg Intake: Intake, IV Titration 62.19 69.056 Amount Heparin Sod,Pork in 0.45% 62.19 69.056 NaCl 25,000 unit In 0.45 % NaCl 1 250ml.bag @ 12 UNITS/KG/HR 8.165 mls/hr IV .Q24H [facility] Rx#: [id number] Oral 240 180 Other: Voiding Method Toilet Toilet Toilet # Voids 1 1 - Labs CBC & Chem 7: 10/03/20 08:34 10/03/20 08:34 Labs: Abnormal Lab Results - Last 24 Hours (Table) 10/02/20 10/02/20 10/02/20 Range/Units 08:49 08:49 11:58 WBC (3.8-10.6) k/uL RBC (3.80-5.40) m/uL Hgb (11.4-16.0) gm/dL Hct (34.0-46.0) % Neutrophils # (1.3-7.7) k/uL Lymphocytes # (1.0-4.8) k/uL PT (9.0-12.0) sec INR (<1.2) APTT (22.0-30.0) sec Sodium (137-145) mmol/L BUN (7-17) mg/dL Creatinine (0.52-1.04) mg/dL Glucose (74-99) mg/dL Ferritin 909.2 H (10.0-291.0) ng/mL Troponin I 0.218 H* (0.000-0.034) ng/mL Procalcitonin 0.97 H (0.02-0.09) ng/mL 10/02/20 10/02/20 10/02/20 Range/Units 17:05 17:05 17:05 WBC (3.8-10.6) k/uL RBC (3.80-5.40) m/uL Hgb (11.4-16.0) gm/dL Hct (34.0-46.0) % Neutrophils # (1.3-7.7) k/uL Lymphocytes # (1.0-4.8) k/uL PT (9.0-12.0) sec INR (<1.2) APTT 39.1 H (22.0-30.0) sec Sodium (137-145) mmol/L BUN (7-17) mg/dL Creatinine (0.52-1.04) mg/dL Glucose (74-99) mg/dL Ferritin (10.0-291.0) ng/mL Troponin I 0.267 H* (0.000-0.034) ng/mL Procalcitonin 1.13 H (0.02-0.09) ng/mL 10/03/20 10/03/20 10/03/20 Range/Units 00:09 08:34 08:34 WBC 17.1 H (3.8-10.6) k/uL RBC 3.43 L (3.80-5.40) m/uL Hgb 10.4 L (11.4-16.0) gm/dL Hct 32.9 L (34.0-46.0) % Neutrophils # 15.2 H (1.3-7.7) k/uL Lymphocytes # 0.6 L (1.0-4.8) k/uL PT 17.7 H (9.0-12.0) sec INR 1.8 H (<1.2) APTT 57.3 H (22.0-30.0) sec Sodium (137-145) mmol/L BUN (7-17) mg/dL Creatinine (0.52-1.04) mg/dL Glucose (74-99) mg/dL Ferritin (10.0-291.0) ng/mL Troponin I (0.000-0.034) ng/mL Procalcitonin (0.02-0.09) ng/mL 10/03/20 Range/Units 08:34 WBC (3.8-10.6) k/uL RBC (3.80-5.40) m/uL Hgb (11.4-16.0) gm/dL Hct (34.0-46.0) % Neutrophils # (1.3-7.7) k/uL Lymphocytes # (1.0-4.8) k/uL PT (9.0-12.0) sec INR (<1.2) APTT (22.0-30.0) sec Sodium 134 L (137-145) mmol/L BUN 64 H (7-17) mg/dL Creatinine 2.14 H (0.52-1.04) mg/dL Glucose 102 H (74-99) mg/dL Ferritin (10.0-291.0) ng/mL Troponin I (0.000-0.034) ng/mL Procalcitonin (0.02-0.09) ng/mL Microbiology - Last 24 Hours (Table) 10/03/20 09:23 Sputum Culture - Preliminary Sputum 10/02/20 08:49 Blood Culture Gram Stain - Preliminary Blood Blood Culture - Preliminary Streptococcus pneumoniae 10/02/20 08:49 Blood Culture Gram Stain - Preliminary Blood Blood Culture - Preliminary Streptococcus pneumoniae 10/02/20 08:49 Blood Culture - Final Blood 10/02/20 08:49 Blood Culture - Final Blood
--- NOTE | 2020-10-03 12:24 | P.PN ---
Subjective This is a pleasant 80 years old female with past medical history of COPD, hypertension, hyperlipidemia, osteoarthritis, hypothyroidism, lung cancer. History of atrial fibrillation on Coumadin. She is a patient of Dr. Melvin Orteag. She also follow-up with Dr. David and Dr. Chavez. Presents because of dyspnea of 1 week duration, associated with coughing and phlegm when she do her nebulizer at home but no chest pain or dizziness. She talked to her PCP Dr. Charles over the phone on Sunday and prescribed her Zithromax and Medrol Dosepak. She denies abdominal pain or nausea vomiting or urinary complaints. No leg pain or swelling. No dizziness. She denies smoking or or call abuse She does not know why she takes warfarin, she denies history of A. fib and states she had clotted her left arm 10 years ago On admission she has low-grade temperature of 99.7, she is tachycardic at 10/18/2019. Restoril vitals are stable. She is saturating 90% on room air Labs showed leukocytosis of 24.2K. creatinine is elevated at 1.9 which is at baseline of 1.8-2.3. D-dimer is elevated at 4.17. INR is 1.7. Liver enzymes are unremarkable. Troponin is elevated at 0.18 which is new for her. High C- reactive protein to 85. [place] virus test PCR is not detected EKG showing atrial fibrillation with heart rate of 127. Chest x-ray: COPD with patchy right mid and lower lung infiltrate. Small right effusion. Correlate for pneumonia. Call the pneumonia is possible as well. Unfortunately no Chest x-ray image to be reviewed by myself In the emergency room patient was started with Zithromax and ceftriaxone and heparin drip. 10/03/2020 patient admitted with bilateral pneumonia and A. fib, on her blood culture came back positive today with Streptococcus pneumoniae Patient is awake, no mesh dyspnea at rest however she has some significant often and she has bilateral harsh breath sounds in view of her bilateral pneumonia. She denies chest pain She is hemodynamically stable and saturating 99% on 2 L oxygen via nasal cannula. Her low-grade fever of 99.7 on admission has resolved Leukocytosis improving to 17.1 K, INR slightly up to 1.8. Creatinine around the same or slightly worse 1.9 to 2.1. Continue with Zithromax and ceftriaxone, called infectious disease consult [employer] Manager following the case, continue with warfarin and heparin drip for bridging Also saw the patient on some hydration with normal sinus at 75 mL/h Review of Systems CONSTITUTIONAL: No fever, no malaise, no fatigue. HEENT: No recent visual problems or hearing problems. Denied any sore throat. CARDIOVASCULAR: No orthopnea, PND, no palpitations, no syncope. PULMONARY: No chest wall tenderness, no hemoptysis. GASTROINTESTINAL: No diarrhea, no nausea, no vomiting, no abdominal pain. Normoactive bowel sounds. NEUROLOGICAL: No headaches, no weakness, no numbness. HEMATOLOGICAL: Denies any bleeding or petechiae. Active Medications Generic Name Dose Route Start Last Admin Trade Name Freq PRN Reason Stop Dose Admin Hydrocodone Bitart/Acetaminophen 1 each 10/02/20 10:52 10/02/20 20:21 Hydrocodone/Apap 7.5-325mg 1 Each Tab PO 1 each HS PRN Administration Pain Albuterol Sulfate 2 puff 10/02/20 16:00 10/03/20 11:35 Albuterol Hfa Inhaler INHALATION 2 puff RT-QID ALONA Administration Allopurinol 100 mg 10/02/20 21:00 10/03/20 09:45 Allopurinol 100 Mg Tab PO 100 mg BID ALONA Administration Ascorbic Acid 1,000 mg 10/03/20 09:00 10/03/20 09:44 Ascorbic Acid 500 Mg Tab PO 1,000 mg DAILY ALONA Administration Azithromycin 500 mg 10/03/20 11:00 10/03/20 09:45 Azithromycin 500 Mg Tab PO 500 mg DAILY@1100 ALONA Administration Budesonide/Formoterol Fumarate 2 puff 10/02/20 20:00 10/03/20 08:17 Symbicort 160-4.5 Mcg Inhaler INHALATION 2 puff RT-BID ALONA Administration Calcitriol 0.25 mcg 10/04/20 09:00 Calcitriol 0.25 Mcg Cap PO MOFR ALONA Cholecalciferol 4,000 unit 10/03/20 09:00 10/03/20 09:45 Cholecalciferol 1,000 Unit Tab PO 4,000 unit DAILY AL[facility] Administration Famotidine 20 mg 10/02/20 11:15 10/03/20 09:45 Famotidine 20 Mg/2 Ml Vial IV 20 mg Q12HR AL[place] Administration Ferrous Sulfate 325 mg 10/03/20 09:00 10/03/20 09:45 Ferrous Sulfate 325 Mg Tab PO 325 mg DAILY AL[facility] Administration Furosemide 40 mg 10/04/20 09:00 Furosemide 40 Mg Tab PO MOWEFR ALONA Heparin Sodium/Sodium Chloride 250 mls @ 8.165 mls/hr 10/02/20 10:00 10/03/20 01:26 25,000 unit/ Sodium Chloride IV 14 units/kg/hr .Q24H [facility] 9.525 mls/hr Titration Protocol 12 UNITS/KG/HR Ceftriaxone Sodium 2 gm/ 50 mls @ 100 mls/hr 10/03/20 09:00 10/03/20 09:44 Sodium Chloride IVPB 10/05/20 09:01 100 mls/hr Q24HR ALONA Administration Sodium Chloride 1,000 mls @ 75 mls/hr 10/03/20 11:00 Saline 0.9% IV .[id number] [facility] Losartan Potassium 50 mg 10/04/20 09:00 Losartan 50 Mg Tab PO DAILY [facility] Miscellaneous Information 1 each 10/02/20 10:00 Pneumonia Protocol Utilized 1 Each Misc PO ONCE PRN Per Protocol Miscellaneous Information 1 each 10/02/20 10:54 Warfarin Per Pharmacy MISCELLANE DIRECTED PRN Per Protocol Protocol Prednisone 30 mg 10/04/20 09:00 Prednisone 10 Mg Tab PO DAILY [facility] Tiotropium [place] 1 puff 10/03/20 08:00 10/03/20 11:35 Tiotropium 2.5 Mcg Inhaler INHALATION 1 puff RT-DAILY ALONA Administration Warfarin Sodium 2.5 mg 10/03/20 18:00 Warfarin 2.5 Mg Tab PO 10/03/20 18:01 ONCE ONE Zinc Sulfate 220 mg 10/03/20 09:00 10/03/20 09:45 Zinc Sulfate 220 Mg Cap PO 220 mg DAILY ALONA Administration Objective - Vital Signs Vital signs: Vital Signs Temp 98.5 F 10/03/20 08:00 Pulse 92 10/03/20 08:00 Resp 18 10/03/20 08:00 BP 106/57 10/03/20 08:00 Pulse Ox 99 10/03/20 08:00 Intake & Output 10/02/20 10/03/20 10/03/20 18:59 06:59 18:59 Intake Total 302.19 69.056 180 Balance 302.19 69.056 180 Weight 68.039 kg 69.8 kg Intake: Intake, IV Titration 62.19 69.056 Amount Heparin Sod,Pork in 0.45% 62.19 69.056 NaCl 25,000 unit In 0.45 % NaCl 1 250ml.bag @ 12 UNITS/KG/HR 8.165 mls/hr IV .Q24H [facility] Rx#: [id number] Oral 240 180 Other: Voiding Method Toilet Toilet Toilet # Voids 1 1 - Exam GENERAL: The patient is alert and oriented x3, not in any acute distress. Well developed, well nourished. HEENT: Pupils are round and equally reacting to light. EOMI. No scleral icterus. No conjunctival pallor. Normocephalic, atraumatic. No pharyngeal erythema. No thyromegaly. CARDIOVASCULAR: S1 and S2 present. No murmurs, rubs, or gallops. -PULMONARY: Chest is clear to auscultation, no wheezing or crackles. Right sided harsh breath sounds ABDOMEN: Soft, nontender, nondistended, normoactive bowel sounds. No palpable organomegaly. MUSCULOSKELETAL: No joint swelling or deformity. EXTREMITIES: No cyanosis, clubbing, or pedal edema. NEUROLOGICAL: Gross neurological examination did not reveal any focal deficits. SKIN: No rashes. no petechiae. - Labs CBC & Chem 7: 10/03/20 08:34 10/03/20 08:34 Labs: Abnormal Lab Results - Last 24 Hours (Table) 10/02/20 10/02/20 10/02/20 Range/Units 08:49 08:49 11:58 WBC (3.8-10.6) k/uL RBC (3.80-5.40) m/uL Hgb (11.4-16.0) gm/dL Hct (34.0-46.0) % Neutrophils # (1.3-7.7) k/uL Lymphocytes # (1.0-4.8) k/uL PT (9.0-12.0) sec INR (<1.2) APTT (22.0-30.0) sec Sodium (137-145) mmol/L BUN (7-17) mg/dL Creatinine (0.52-1.04) mg/dL Glucose (74-99) mg/dL Ferritin 909.2 H (10.0-291.0) ng/mL Troponin I 0.218 H* (0.000-0.034) ng/mL Procalcitonin 0.97 H (0.02-0.09) ng/mL 10/02/20 10/02/20 10/02/20 Range/Units 17:05 17:05 17:05 WBC (3.8-10.6) k/uL RBC (3.80-5.40) m/uL Hgb (11.4-16.0) gm/dL Hct (34.0-46.0) % Neutrophils # (1.3-7.7) k/uL Lymphocytes # (1.0-4.8) k/uL PT (9.0-12.0) sec INR (<1.2) APTT 39.1 H (22.0-30.0) sec Sodium (137-145) mmol/L BUN (7-17) mg/dL Creatinine (0.52-1.04) mg/dL Glucose (74-99) mg/dL Ferritin (10.0-291.0) ng/mL Troponin I 0.267 H* (0.000-0.034) ng/mL Procalcitonin 1.13 H (0.02-0.09) ng/mL 10/03/20 10/03/20 10/03/20 Range/Units 00:09 08:34 08:34 WBC 17.1 H (3.8-10.6) k/uL RBC 3.43 L (3.80-5.40) m/uL Hgb 10.4 L (11.4-16.0) gm/dL Hct 32.9 L (34.0-46.0) % Neutrophils # 15.2 H (1.3-7.7) k/uL Lymphocytes # 0.6 L (1.0-4.8) k/uL PT 17.7 H (9.0-12.0) sec INR 1.8 H (<1.2) APTT 57.3 H (22.0-30.0) sec Sodium (137-145) mmol/L BUN (7-17) mg/dL Creatinine (0.52-1.04) mg/dL Glucose (74-99) mg/dL Ferritin (10.0-291.0) ng/mL Troponin I (0.000-0.034) ng/mL Procalcitonin (0.02-0.09) ng/mL 10/03/20 Range/Units 08:34 WBC (3.8-10.6) k/uL RBC (3.80-5.40) m/uL Hgb (11.4-16.0) gm/dL Hct (34.0-46.0) % Neutrophils # (1.3-7.7) k/uL Lymphocytes # (1.0-4.8) k/uL PT (9.0-12.0) sec INR (<1.2) APTT (22.0-30.0) sec Sodium 134 L (137-145) mmol/L BUN 64 H (7-17) mg/dL Creatinine 2.14 H (0.52-1.04) mg/dL Glucose 102 H (74-99) mg/dL Ferritin (10.0-291.0) ng/mL Troponin I (0.000-0.034) ng/mL Procalcitonin (0.02-0.09) ng/mL Microbiology - Last 24 Hours (Table) 10/03/20 09:23 Sputum Culture - Preliminary Sputum 10/02/20 08:49 Blood Culture Gram Stain - Preliminary Blood Blood Culture - Preliminary Streptococcus pneumoniae 10/02/20 08:49 Blood Culture Gram Stain - Preliminary Blood Blood Culture - Preliminary Streptococcus pneumoniae 10/02/20 08:49 Blood Culture - Final Blood 10/02/20 08:49 Blood Culture - Final Blood Assessment and Plan Assessment: A. fib with RVR with Elevated troponin Right pneumonia Patchy right mid and lower lung infiltrate. With sepsis with low-grade fever and leukocytosis Septicemia secondary to Streptococcus pneumoniae. Mild to moderate mitral regurgitation and moderate tricuspid regurgitation with ejection fraction of 55-60% per echocardiogram Elevated d-dimer, patient is already on warfarin and heparin drip COPD Hypertension Hyperlipidemia [place]-arthritis Chronic kidney disease, stage IV Hypothyroidism History of lung cancer Plan: This is a pleasant 80 years old female who presents with A. fib and RVR and right pneumonia and streptococcus septicemia. Continue with antibiotic, follow- up sputum culture. Consult infectious disease. Pulmonary team on the case as well as plant operator helper. Continue with warfarin pharmacy to dose . Heparin bridging until INR is therapeutic Labs and medication were reviewed.. Continue same treatment. Continue with symptomatic treatment. Resume home medication. Monitor lytes and vitals. DVT and GI prophylaxis. Further recommendations depends on the clinical course of the patient DVT prophylaxis:s heparin GI Prophylaxis: Pepcid PT/OT: Pending Prognosis is guarded
[2020-10-03] MEDS: SODIUM CHLORIDE 0.9% 1,000 ML IV SCH (12:51)
--- NOTE | 2020-10-03 13:15 | PN ---
PROGRESS NOTE PULMONARY/CRITICAL CARE PROGRESS NOTE: DATE OF SERVICE: 10/03/2020 This is an 80-year-old female who I saw yesterday in consultation. She sees my partner. The patient was seen on the of this month. At that time, the patient was not feeling well and was prescribed a Medrol Dosepak and Z-Abelardo. She finished both of those. I saw her yesterday in consultation. She was recently admitted to the hospital on 10/02. She came in complaining of increasing shortness of breath, fever, and tightness in her chest. She apparently was not wheezing. Anyway, the patient was diagnosed as having right-sided pneumonia. She tested negative x2 for COVID-19 infection. Currently, she is on O2. She is resting comfortably in bed. She is feeling better. PHYSICAL EXAMINATION: VITAL SIGNS: Current vital signs are reviewed. Temperature is 98.5, heart rate 92, respiratory rate 18, blood pressure 106/57, mean 73, 2 L saturation 99%. She appears in no acute distress. HEENT: Examination is grossly unremarkable. NECK: Supple. Full range of motion. No adenopathy. Neck veins are flat. CARDIOVASCULAR: Examination reveals regular rhythm and rate. Heart rate mid 80s. S1, S2 normal. Heart sounds are distant. No murmur. LUNGS: Reveal coarse rhonchi, particularly on the right side. Some crackles in the right lung. Left lung is mostly clear. Breath sounds are diminished on the right side. ABDOMEN: Soft. Bowel sounds are heard. No masses or tenderness. EXTREMITIES are intact. There is no cyanosis, clubbing, or edema. SKIN: Without rash. NEUROLOGIC: Examination is brief but nonfocal. LABS: Reviewed. White count 17.1, hemoglobin 10.4, hematocrit 32.9, platelet count 332,000. PT 17.7, INR 1.8, PTT is 57.3. Sodium 134, potassium 4.7, chloride 105, CO2 25, anion gap is 4. BUN and creatinine were 64 and 2.14. The rest of the labs are reviewed. Microbiology is positive for Streptococcus pneumoniae in the blood. Chest x-ray from the shows a persistent right lung infiltrate. There is also a small right-sided effusion. CURRENT MEDICATIONS: Reviewed. The patient is on Tylenol, albuterol inhaler, allopurinol, vitamin C, Zithromax, Symbicort, Rocaltrol, Rocephin, vitamin D3, Decadron, famotidine, iron, Lasix, IV heparin, [place], Cozaar, saline IV, Spiriva, warfarin, and zinc. ASSESSMENT: 1. Streptococcus pneumoniae pneumonia/bacteremia, involving primarily the right lung. Testing for COVID x2 was negative. 2. History of underlying chronic obstructive pulmonary disease. 3. Atrial fibrillation with rapid ventricular response. 4. Prior diagnosis of non-small cell lung cancer, status post right lower lobe wedge resection, without need for chemo or radiation subsequently. 5. History of chronic obstructive pulmonary disease from previous tobacco use. 6. Hyperlipidemia. 7. Essential hypertension. 8. Degenerative joint disease. 9. Chronic kidney disease. 10.History of thyroid disease. PLAN: The patient's Decadron will be switched to prednisone. Clinically she looks well. Will continue to follow. Blood cultures were positive for Streptococcus pneumoniae. She has pneumonia in the right lung. She also has bacteremia as noted. She is on Rocephin and Zithromax. Will DC Decadron in favor of oral prednisone. Additional recommendations and suggestions are forthcoming. MMODL / IJN: [id number] / JENY
[2020-10-03] MEDS: HEPARIN SOD,PORK IN 0.45% NACL 25,000 UNIT in 0.45% NACL 1 250ML.BAG IV SCH (14:40)
[2020-10-03] MEDS ORDERED: WARFARIN 2.5 MG TAB PO ONE (18:00)
[2020-10-03] MEDS: HYDROcodone/APAP 7.5-325MG 1 EACH TAB PO PRN (20:05)
[2020-10-04] MEDS: SODIUM CHLORIDE 0.9% 1,000 ML IV SCH ×2 (00:32→12:08)
[2020-10-04] MEDS: SYMBICORT 160-4.5 MCG INHALER INHALATION SCH ×2 (07:42→19:10)
[2020-10-04] MEDS: ALBUTEROL HFA INHALER INHALATION SCH ×4 (07:42→19:10)
[2020-10-04] MEDS: TIOTROPIUM 2.5 MCG INHALER INHALATION SCH (07:43)
[2020-10-04 08:00] LABS: INR 1.6 (<1.2); Partial Thromboplastin Time 88.2 sec (22.0-30.0); Prothrombin Time 15.9 sec (9.0-12.0)
[2020-10-04 08:03] LABS: Basophils # (A) 0.1 k/uL (0-0.2); Basophils % (A) 0 %; Eosinophils % (A) 0 %; HCT 31.8 % (34.0-46.0); HGB 9.7 gm/dL (11.4-16.0); Hypochromasia Moderate; Lymphocytes # (A) 0.6 k/uL (1.0-4.8); Lymphocytes % (A) 4 %; MCH 29.9 pg (25.0-35.0); MCHC 30.6 g/dL (31.0-37.0); MCV 97.7 fL (80.0-100.0); Mean Platelet Volume 8.5; Monocytes # (A) 0.7 k/uL (0-1.0); Monocytes % (A) 4 %; Neutrophils # (A) 13.3 k/uL (1.3-7.7); Neutrophils % (A) 90 %; Platelet Count 336 k/uL (150-450); RBC 3.25 m/uL (3.80-5.40); RDW 14.4 % (11.5-15.5); WBC 14.9 k/uL (3.8-10.6)
[2020-10-04 08:11] LABS: Calcium 8.9 mg/dL (8.4-10.2); Potassium 4.9 mmol/L (3.5-5.1)
--- NOTE | 2020-10-04 08:27 | P.PN ---
Subjective Progress Note Date: 10/04/20 78-year-old here patient is being seen in follow-up today on 10/04/2020 regarding pneumococcal pneumonia. The patient was admitted to the hospital on 10/02/2020 for worsening shortness of breath and fever and chest tightness. She was diagnosed having a right-sided pneumonia. She tested negative for COVID 19x2 and subsequently she was found to have a streptococcal pneumonia pneumonia with secondary bacteremia primarily involving the right lung. She is known to have COPD patient also developed atrial fibrillation with rapid ventricular response. She has a prior diagnosis of non-small cell lung cancer and she has undergone a previous right lower lobe wedge resection without the need for any systemic chemotherapy or radiation therapy. Her other comorbid conditions include hypertension, hyperlipidemia, chronic kidney disease and hypothyroidism. Clinically the patient is doing much better. She still has a congested cough. Unable to bring up much sputum. She is currently on 2 L of oxygen by nasal cannula. INR is at 1.6 and the patient remains subtherapeutic on Coumadin. The patient is also on IV heparin. Cardiac rhythm is still atrial fibrillation. Objective - Vital Signs Vital signs: Vital Signs Temp 97.5 F L 10/04/20 04:00 Pulse 79 10/04/20 04:00 Resp 17 10/04/20 04:00 BP 90/53 10/04/20 04:00 Pulse Ox 100 10/04/20 04:00 Intake & Output 10/03/20 10/04/20 10/04/20 18:59 06:59 18:59 Intake Total 778.754 192.319 Balance 778.754 192.319 Weight 71.2 kg Intake: Intake, IV Titration 118.754 192.319 Amount Heparin Sod,Pork in 0.45% 118.754 192.319 NaCl 25,000 unit In 0.45 % NaCl 1 250ml.bag @ 12 UNITS/KG/HR 8.165 mls/hr IV .Q24H [facility] Rx#: [id number] Oral 660 Other: Voiding Method Toilet # Voids 1 1 - Exam The patient appeared well nourished and normally developed. Vital signs as documented. Head exam is unremarkable. No scleral icterus or corneal arcus noted. Neck is without jugular venous distension, thyromegaly, or carotid bruits. Carotid upstrokes are brisk bilaterally. Lungs are clear to auscultation and percussion. Cardiac exam reveals the PMI to be normally sized and situated. Rhythm is regular. First and second heart sounds normal. No murmurs, rubs or gallops. Abdominal exam reveals normal bowel sounds, no masses, no organomegaly and no aortic enlargement. Extremities are nonedematous and both femoral and pedal pulses are normal. - Labs CBC & Chem 7: 10/04/20 06:42 10/04/20 06:42 Labs: Abnormal Lab Results - Last 24 Hours (Table) 10/03/20 10/03/20 10/03/20 Range/Units 08:34 08:34 08:34 WBC 17.1 H (3.8-10.6) k/uL RBC 3.43 L (3.80-5.40) m/uL Hgb 10.4 L (11.4-16.0) gm/dL Hct 32.9 L (34.0-46.0) % MCHC (31.0-37.0) g/dL Neutrophils # 15.2 H (1.3-7.7) k/uL Lymphocytes # 0.6 L (1.0-4.8) k/uL PT 17.7 H (9.0-12.0) sec INR 1.8 H (<1.2) APTT (22.0-30.0) sec Sodium 134 L (137-145) mmol/L Chloride (98-107) mmol/L BUN 64 H (7-17) mg/dL Creatinine 2.14 H (0.52-1.04) mg/dL Glucose 102 H (74-99) mg/dL 10/03/20 10/04/20 10/04/20 Range/Units 08:34 06:42 06:42 WBC 14.9 H (3.8-10.6) k/uL RBC 3.25 L (3.80-5.40) m/uL Hgb 9.7 L (11.4-16.0) gm/dL Hct 31.8 L (34.0-46.0) % MCHC 30.6 L (31.0-37.0) g/dL Neutrophils # 13.3 H (1.3-7.7) k/uL Lymphocytes # 0.6 L (1.0-4.8) k/uL PT 15.9 H (9.0-12.0) sec INR 1.6 H (<1.2) APTT 35.1 H 88.2 H (22.0-30.0) sec Sodium (137-145) mmol/L Chloride (98-107) mmol/L BUN (7-17) mg/dL Creatinine (0.52-1.04) mg/dL Glucose (74-99) mg/dL 10/04/20 Range/Units 06:42 WBC (3.8-10.6) k/uL RBC (3.80-5.40) m/uL Hgb (11.4-16.0) gm/dL Hct (34.0-46.0) % MCHC (31.0-37.0) g/dL Neutrophils # (1.3-7.7) k/uL Lymphocytes # (1.0-4.8) k/uL PT (9.0-12.0) sec INR (<1.2) APTT (22.0-30.0) sec Sodium 134 L (137-145) mmol/L Chloride 108 H (98-107) mmol/L BUN 62 H (7-17) mg/dL Creatinine 2.07 H (0.52-1.04) mg/dL Glucose 118 H (74-99) mg/dL Microbiology - Last 24 Hours (Table) 10/03/20 09:23 Gram Stain - Preliminary Sputum Sputum Culture - Preliminary 10/02/20 08:49 Blood Culture Gram Stain - Preliminary Blood Blood Culture - Preliminary Streptococcus pneumoniae 10/02/20 08:49 Blood Culture Gram Stain - Preliminary Blood Blood Culture - Preliminary Streptococcus pneumoniae Assessment and Plan Plan: 1 pneumococcal pneumonia with secondary bacteremia. The patient presented with a right lower lobe pneumonia. The rice virus/Covid 19 testing 2 has been negative. The patient remains on IV Rocephin and Zithromax. Clinically improvi ng. 1 Chronic atrial fibrillation with rapid ventricular response, better rate control on IV heparin as the patient has a subtherapeutic INR, INR is at 1.6 and the patient is still on IV heparin for now. Coumadin dose being adjusted. 3 COPD 4 previous history of non-small cell lung cancer with a previous right lower lobe wedge resection without any subsequent need for chemotherapy or radiation therapy 5 hypertension 6 hyperlipidemia 7 chronic kidney disease 8 hypothyroidism 9 osteoarthritis 10 Leukocytosis Plan Continue IV Rocephin 2 g every 24 hours, in combination with Zithromax Continue IV heparin, and give the patient a dose of Coumadin at 5 mg a repeat the PT/INR. Meanwhile continued IV heparin. Repeat chest x-ray in the morning Continue Spiriva as maintenance for COPD, in combination with Symbicort and Ventolin rescue inhaler on an as-needed basis Monitor oxygenation as the patient is currently on 2 L of oxygen by nasal cannula Prednisone burst taper starting with 30 mg by mouth daily
[2020-10-04] MEDS: CHOLECALCIFEROL 1,000 UNIT TAB PO SCH (08:33)
[2020-10-04] MEDS: predniSONE 10 MG TAB PO SCH (08:34)
[2020-10-04] MEDS: ASCORBIC ACID 500 MG TAB PO SCH (08:34)
[2020-10-04] MEDS: ZINC SULFATE 220 MG CAP PO SCH (08:37)
[2020-10-04] MEDS: allopurinoL 100 MG TAB PO SCH ×2 (08:37→21:02)
[2020-10-04] MEDS: LOSARTAN 50 MG TAB PO SCH (08:37)
[2020-10-04] MEDS: FERROUS SULFATE 325 MG TAB PO SCH (08:37)
[2020-10-04] MEDS: FAMOTIDINE 20 MG/2 ML VIAL IV SCH (08:38)
[2020-10-04] MEDS ORDERED: FUROSEMIDE 40 MG TAB PO SCH (09:00)
--- NOTE | 2020-10-04 10:33 | P.PN ---
Subjective This is a pleasant 80 years old female with past medical history of COPD, hypertension, hyperlipidemia, osteoarthritis, hypothyroidism, lung cancer. History of atrial fibrillation on Coumadin. She is a patient of Dr. Melvin Ortega. She also follow-up with Dr. David and Dr. Chavez. Presents because of dyspnea of 1 week duration, associated with coughing and phlegm when she do her nebulizer at home but no chest pain or dizziness. She talked to her PCP Dr. Charles over the phone on Sunday and prescribed her Zithromax and Medrol Dosepak. She denies abdominal pain or nausea vomiting or urinary complaints. No leg pain or swelling. No dizziness. She denies smoking or or call abuse She does not know why she takes warfarin, she denies history of A. fib and states she had clotted her left arm 10 years ago On admission she has low-grade temperature of 99.7, she is tachycardic at 10/18/2019. Restoril vitals are stable. She is saturating 90% on room air Labs showed leukocytosis of 24.2K. creatinine is elevated at 1.9 which is at baseline of 1.8-2.3. D-dimer is elevated at 4.17. INR is 1.7. Liver enzymes are unremarkable. Troponin is elevated at 0.18 which is new for her. High C- reactive protein to 85. Nance virus test PCR is not detected EKG showing atrial fibrillation with heart rate of 127. Chest x-ray: COPD with patchy right mid and lower lung infiltrate. Small right effusion. Correlate for pneumonia. Call the pneumonia is possible as well. Unfortunately no Chest x-ray image to be reviewed by myself In the emergency room patient was started with Zithromax and ceftriaxone and heparin drip. 10/03/2020 patient admitted with bilateral pneumonia and A. fib, on her blood culture came back positive today with Streptococcus pneumoniae Patient is awake, no mesh dyspnea at rest however she has some significant often and she has bilateral harsh breath sounds in view of her bilateral pneumonia. She denies chest pain She is hemodynamically stable and saturating 99% on 2 L oxygen via nasal cannula. Her low-grade fever of 99.7 on admission has resolved Leukocytosis improving to 17.1 K, INR slightly up to 1.8. Creatinine around the same or slightly worse 1.9 to 2.1. Continue with Zithromax and ceftriaxone, called infectious disease consult Rn Pacu following the case, continue with warfarin and heparin drip for bridging Also saw the patient on some hydration with normal sinus at 75 mL/h 10/04/2020 patient admitted with bilateral pneumonia and A. fib, on her blood culture came back positivewith Streptococcus pneumoniae. Rn Pacu evaluated the patient and her high troponin is secondary to her kidney disease Patient is improving and her breathing is quiet today. No much coughing. No chest pain She is saturating 97.8% and 2 L oxygen via nasal cannula. Rest of Vitas looks stable Leukocytosis is improving down to 14.9 K. INR is going down today to 1.6 and she received 2.5 mg of Coumadin yesterday, today we are going to give her 4.5 mg. She remains on heparin drip for bridging Creatinine is stable at 2.0 which is at baseline. Echocardiogram showed ejection fraction of 55-60% with [id number] mitral regurgitation and moderate tricuspid regurgitation She skipped on Zithromax and ceftriaxone and prednisone 30 mg daily, also she is on normal saline 75 mL/h. She continue on zinc and vitamin C. Pulmonary team on the case, infectious disease were consulted for possible blood culture Objective - Vital Signs Vital signs: Vital Signs Temp 97.5 F L 10/04/20 04:00 Pulse 79 10/04/20 04:00 Resp 17 10/04/20 04:00 BP 90/53 10/04/20 04:00 Pulse Ox 100 10/04/20 04:00 Intake & Output 10/03/20 10/04/20 10/04/20 18:59 06:59 18:59 Intake Total 778.754 192.319 Output Total 300 Balance 778.754 -107.681 Weight 71.2 kg Intake: Intake, IV Titration 118.754 192.319 Amount Heparin Sod,Pork in 0.45% 118.754 192.319 NaCl 25,000 unit In 0.45 % NaCl 1 250ml.bag @ 12 UNITS/KG/HR 8.165 mls/hr IV .Q24H [facility] Rx#: [id number] Oral 660 Output: Urine 300 Other: Voiding Method Toilet # Voids 1 1 - Exam GENERAL: The patient is alert and oriented x3, not in any acute distress. Well developed, well nourished. HEENT: Pupils are round and equally reacting to light. EOMI. No scleral icterus. No conjunctival pallor. Normocephalic, atraumatic. No pharyngeal erythema. No thyromegaly. CARDIOVASCULAR: S1 and S2 present. No murmurs, rubs, or gallops. -PULMONARY: Chest is clear to auscultation, no wheezing or crackles. Right sided harsh breath sounds ABDOMEN: Soft, nontender, nondistended, normoactive bowel sounds. No palpable organomegaly. MUSCULOSKELETAL: No joint swelling or deformity. EXTREMITIES: No cyanosis, clubbing, or pedal edema. NEUROLOGICAL: Gross neurological examination did not reveal any focal deficits. SKIN: No rashes. no petechiae. - Labs CBC & Chem 7: 10/04/20 06:42 10/04/20 06:42 Labs: Abnormal Lab Results - Last 24 Hours (Table) 10/03/20 10/04/20 10/04/20 Range/Units 08:34 06:42 06:42 WBC 14.9 H (3.8-10.6) k/uL RBC 3.25 L (3.80-5.40) m/uL Hgb 9.7 L (11.4-16.0) gm/dL Hct 31.8 L (34.0-46.0) % MCHC 30.6 L (31.0-37.0) g/dL Neutrophils # 13.3 H (1.3-7.7) k/uL Lymphocytes # 0.6 L (1.0-4.8) k/uL PT 15.9 H (9.0-12.0) sec INR 1.6 H (<1.2) APTT 35.1 H 88.2 H (22.0-30.0) sec Sodium (137-145) mmol/L Chloride (98-107) mmol/L BUN (7-17) mg/dL Creatinine (0.52-1.04) mg/dL Glucose (74-99) mg/dL 10/04/20 Range/Units 06:42 WBC (3.8-10.6) k/uL RBC (3.80-5.40) m/uL Hgb (11.4-16.0) gm/dL Hct (34.0-46.0) % MCHC (31.0-37.0) g/dL Neutrophils # (1.3-7.7) k/uL Lymphocytes # (1.0-4.8) k/uL PT (9.0-12.0) sec INR (<1.2) APTT (22.0-30.0) sec Sodium 134 L (137-145) mmol/L Chloride 108 H (98-107) mmol/L BUN 62 H (7-17) mg/dL Creatinine 2.07 H (0.52-1.04) mg/dL Glucose 118 H (74-99) mg/dL Microbiology - Last 24 Hours (Table) 10/02/20 08:49 Blood Culture Gram Stain - Final Blood Blood Culture - Final Streptococcus pneumoniae 10/02/20 08:49 Blood Culture Gram Stain - Final Blood Blood Culture - Final Streptococcus pneumoniae 10/03/20 09:23 Gram Stain - Preliminary Sputum Sputum Culture - Preliminary Assessment and Plan Assessment: Right pneumonia Patchy right mid and lower lung infiltrate. With sepsis with low-grade fever and leukocytosis Septicemia secondary to Streptococcus pneumoniae. A. fib with RVR with Elevated troponin Mild to moderate mitral regurgitation and moderate tricuspid regurgitation with ejection fraction of 55-60% per echocardiogram Elevated d-dimer, patient is already on warfarin and heparin drip COPD Hypertension Hyperlipidemia Ostio-arthritis Chronic kidney disease, stage IV Hypothyroidism History of lung cancer Plan: This is a pleasant 80 years old female who presents with A. fib and RVR and right pneumonia and streptococcus septicemia. Continue with antibiotic, follow- up sputum culture. Consult infectious disease. Pulmonary team on the case as well as office coordinator. Continue with warfarin pharmacy to dose . Heparin bridging until INR is therapeutic Labs and medication were reviewed.. Continue same treatment. Continue with symptomatic treatment. Resume home medication. Monitor lytes and vitals. DVT and GI prophylaxis. Further recommendations depends on the clinical course of the patient DVT prophylaxis:s heparin GI Prophylaxis: Pepcid PT/OT: Pending Prognosis is guarded
--- NOTE | 2020-10-04 11:45 | P.PN ---
Subjective Progress Note Date: 10/04/20 Principal diagnosis: Abnormal cardiac enzymes This is a pleasant 80-year-old female patient who I see in the office as an outpatient with underlying COPD, chronic kidney disease, valvular heart disease, and permanent atrial fibrillation who was admitted to the hospital with incr easing shortness of breath and she was diagnosed with pneumonia. The patient was seen this morning. She is feeling better indeterminable shortness of breath. No fever or chills. She denies any symptoms of chest pain or chest discomfort. Hemodynamically she is stable. Her heart rate has been un [place] good control [place] she is on oral anticoagulation was Coumadin Objective - Vital Signs Vital signs: Vital Signs Temp 98.1 F 10/04/20 08:00 Pulse 92 10/04/20 08:00 Resp 16 10/04/20 08:00 BP 103/59 10/04/20 08:00 Pulse Ox 95 10/04/20 08:00 Intake & Output 10/03/20 10/04/20 10/04/20 18:59 06:59 18:59 Intake Total 778.754 192.319 Output Total 300 Balance 778.754 -107.681 Weight 71.2 kg Intake: Intake, IV Titration 118.754 192.319 Amount Heparin Sod,Pork in 0.45% 118.754 192.319 NaCl 25,000 unit In 0.45 % NaCl 1 250ml.bag @ 12 UNITS/KG/HR 8.165 mls/hr IV .Q24H [facility] Rx#: [id number] Oral 660 Output: Urine 300 Other: Voiding Method Toilet Toilet # Voids 1 1 - Constitutional General appearance: Present: no acute distress - Respiratory Respiratory: bilateral: diminished - Cardiovascular Rhythm: irregularly irregular Heart sounds: normal: S1, S2 Abnormal Heart Sounds: Present: systolic murmur - Labs CBC & Chem 7: 10/04/20 06:42 10/04/20 06:42 Labs: Abnormal Lab Results - Last 24 Hours (Table) 10/03/20 10/04/20 10/04/20 Range/Units 08:34 06:42 06:42 WBC 14.9 H (3.8-10.6) k/uL RBC 3.25 L (3.80-5.40) m/uL Hgb 9.7 L (11.4-16.0) gm/dL Hct 31.8 L (34.0-46.0) % MCHC 30.6 L (31.0-37.0) g/dL Neutrophils # 13.3 H (1.3-7.7) k/uL Lymphocytes # 0.6 L (1.0-4.8) k/uL PT 15.9 H (9.0-12.0) sec INR 1.6 H (<1.2) APTT 35.1 H 88.2 H (22.0-30.0) sec Sodium (137-145) mmol/L Chloride (98-107) mmol/L BUN (7-17) mg/dL Creatinine (0.52-1.04) mg/dL Glucose (74-99) mg/dL 10/04/20 Range/Units 06:42 WBC (3.8-10.6) k/uL RBC (3.80-5.40) m/uL Hgb (11.4-16.0) gm/dL Hct (34.0-46.0) % MCHC (31.0-37.0) g/dL Neutrophils # (1.3-7.7) k/uL Lymphocytes # (1.0-4.8) k/uL PT (9.0-12.0) sec INR (<1.2) APTT (22.0-30.0) sec Sodium 134 L (137-145) mmol/L Chloride 108 H (98-107) mmol/L BUN 62 H (7-17) mg/dL Creatinine 2.07 H (0.52-1.04) mg/dL Glucose 118 H (74-99) mg/dL Microbiology - Last 24 Hours (Table) 10/02/20 08:49 Blood Culture Gram Stain - Final Blood Blood Culture - Final Streptococcus pneumoniae 10/02/20 08:49 Blood Culture Gram Stain - Final Blood Blood Culture - Final Streptococcus pneumoniae 10/03/20 09:23 Gram Stain - Preliminary Sputum Sputum Culture - Preliminary Assessment and Plan Assessment: Assessment #1 permanent atrial fibrillation was controlled heart rate #2 valvular heart disease #3 chronic kidney disease #4 multiple comorbid conditions Plan #1 continue the current medical regimen #2 follow-up with the patient
[2020-10-04] MEDS ORDERED: HYDROcodone/APAP 7.5-325MG 1 EACH TAB PO ONE (11:49)
[2020-10-04] MEDS: HEPARIN SOD,PORK IN 0.45% NACL 25,000 UNIT in 0.45% NACL 1 250ML.BAG IV SCH (11:53)
[2020-10-04] MEDS: AZITHROMYCIN 500 MG TAB PO SCH (11:53)
[2020-10-04] MEDS ORDERED: WARFARIN 2.5 MG TAB PO ONE (18:00)
[2020-10-04] MEDS ORDERED: WARFARIN 2 MG TAB PO ONE (18:00)
[2020-10-04] MEDS: HYDROcodone/APAP 7.5-325MG 1 EACH TAB PO PRN (21:02)
--- NOTE | 2020-10-04 23:58 | CONS ---
CONSULTATION DATE OF SERVICE: 10/04/2020. REASON FOR CONSULTATION: Bacteremia. HISTORY OF PRESENT ILLNESS: The patient is an 80 -year-old female presenting to the hospital 2 days ago on October 02, with chief complaints of increasing shortness of breath in this patient who did have a history of lung cancer, COPD, and did have a lobectomy. The patient mentioned her breathing has been getting worse for about a week before presentation to hospital. The patient also started having a fever with some migraine and chills. The patient did have a cough. It was more red in intensity and productive of some yellow sputum. Denies any pleuritic chest pain. No nausea, no vomiting. No abdominal pain or any diarrhea. With these symptoms the patient was evaluated by the ER physician. On arrival to the ER, the patient did have a low-grade fever of 99.7. The patient did have an elevated white count 24.2, repeat was 17.1. Did have elevated creatinine is slightly up and elevated troponin bronchus was 1.13. Souza PCR was negative. The patient did have a chest x-ray with evidence of right effusion and right mid lung airspace disease. The patient did have blood cultures, possible strep pneumo. Sputum cultures are currently pending. The patient is on Rocephin 2 gram negative. Continue with concern for further management of antibiotic therapy. REVIEW OF SYSTEMS: Positive points have been mentioned in HPI. Rest of systems are negative. PAST MEDICAL HISTORY: COPD and lung cancer, hypertension, hyperlipidemia, osteoarthritis, renal insufficiency, hypothyroidism. PAST SURGICAL HISTORY: Tubal ligation, partial lobectomy. SOCIAL HISTORY: Remote history of smoking. No drinking, drug use. FAMILY HISTORY: Mother history of young age from unknown cause. Father history of [place] and diabetes. ALLERGIES: No known drug allergies. MEDICATIONS: The patient is currently on Rocephin 2 grams daily. She is on vitamin D3, , Zithromax, vitamin C, Zyloprim Ventolin, [place], famotidine, Lasix, heparin, Cozaar, Coumadin, prednisone, diarrhea and zinc. PHYSICAL EXAMINATION: Her blood pressure is 90/55, pulse of 94, temperature is 96. General description is an elderly female up in the bed in no distress. No tachypnea or accessory muscle of respiration use. HEENT: Examination shows no pallor or scleral icterus. Oral mucous membrane is dry. Neck trachea central. LUNGS: Unlabored breathing. Coarse breath sounds in the base. No wheeze. HEART S1, S2. Regular rate and rhythm. ABDOMEN: Soft, no tenderness. EXTREMITIES: No edema of the feet. SKIN examination: No rash or mass palpable. NEUROLOGICALLY patient is awake, alert, oriented times three. Mood and affect normal. LABS: Hemoglobin 9.7, hematocrit 14.9. Admission was 24.2. BUN of 72, creatinine 2.07. IMPRESSION/PLAN: 1. Patient with Streptococcus pneumoniae bacteremia source is likely pneumonia right midline in this patient currently did not want to have this focus of infection responsible for this bacteremia. 2. Patient renal insufficiency. PLAN: 1. Rocephin 2 g IV Bactrim to continue. 2. Gentle IV fluid. 3. We will follow on clinical condition and culture to further adjust medication if needed. Thank you for this consultation. Will follow this patient along with you. PETER / MLAAN: [id number] /
[2020-10-05] MEDS: SODIUM CHLORIDE 0.9% 1,000 ML IV SCH (03:21)
[2020-10-05] MEDS ORDERED: FUROSEMIDE 10 MG/ML 4 ML VIAL IV STA (05:28)
[2020-10-05 06:44] LABS: Calcium 9.2 mg/dL (8.4-10.2); Potassium 4.5 mmol/L (3.5-5.1)
[2020-10-05 06:54] LABS: INR 1.7 (<1.2); Prothrombin Time 17.1 sec (9.0-12.0)
[2020-10-05 08:22] LABS: HCT 33.8 % (34.0-46.0); HGB 9.8 gm/dL (11.4-16.0); Hypochromasia Marked; MCH 29.1 pg (25.0-35.0); Macrocytosis Slight; Mean Platelet Volume 9.3; Platelet Count 385 k/uL (150-450); RBC 3.38 m/uL (3.80-5.40); RDW 14.6 % (11.5-15.5); WBC 16.1 k/uL (3.8-10.6)
[2020-10-05] MEDS: ASCORBIC ACID 500 MG TAB PO SCH (08:32)
[2020-10-05] MEDS: CHOLECALCIFEROL 1,000 UNIT TAB PO SCH (08:32)
[2020-10-05] MEDS: LOSARTAN 50 MG TAB PO SCH (08:32)
[2020-10-05] MEDS: allopurinoL 100 MG TAB PO SCH ×2 (08:32→20:36)
[2020-10-05] MEDS: predniSONE 10 MG TAB PO SCH (08:32)
[2020-10-05] MEDS: FERROUS SULFATE 325 MG TAB PO SCH (08:32)
[2020-10-05] MEDS: FAMOTIDINE 20 MG TAB PO SCH (08:32)
[2020-10-05] MEDS: ALBUTEROL HFA INHALER INHALATION SCH ×4 (08:36→19:32)
[2020-10-05] MEDS: TIOTROPIUM 2.5 MCG INHALER INHALATION SCH (08:37)
[2020-10-05] MEDS: SYMBICORT 160-4.5 MCG INHALER INHALATION SCH ×2 (08:37→19:32)
--- NOTE | 2020-10-05 08:37 | XR ---
EXAMINATION TYPE: XR chest 1V portable DATE OF EXAM: 10/05/2020 COMPARISON: 10/03/2020 INDICATION: Pneumonia TECHNIQUE: Single frontal view of the chest is obtained. FINDINGS: The heart size is normal. The pulmonary vasculature is normal. There is consolidation throughout the right lung. Milder increased lung markings are present on the l eft. Findings appear to be worsening. Small right and possible minimal left pleural effusions are pre sent. IMPRESSION: 1. Worsening bilateral lung infiltrates greater on the right. 2. Small pleural effusions larger on the right.
--- NOTE | 2020-10-05 08:53 | P.PN ---
Subjective Progress Note Date: 10/05/20 Principal diagnosis: Abnormal cardiac enzymes This is a pleasant 80-year-old female patient who I see in the office as an outpatient with underlying COPD, chronic kidney disease, valvular heart disease, and permanent atrial fibrillation who was admitted to the hospital with incr easing shortness of breath and she was diagnosed with pneumonia. The patient was seen this morning. She is definitely more short of breath even with minimal exertion and she is short of breath laying flat in bed. She does have rhonchi in both lung bases. The chest x-ray showed infiltrate on the right side with a small bilateral pleural effusion. I am going to start the patient on small dose of Lasix IV and stop the Lasix by mouth and continue monitor the kidney function and electrolytes. Beside that the patient has been experiencing hemoptysis. Her INR today is 1.7. I will stop the heparin IV and continue oral anticoagulation was Coumadin only. We will also decrease the dose of losartan to 25 mg by mouth daily in view of the margin his low blood pressure. We'll continue following up with her Objective - Vital Signs Vital signs: Vital Signs Temp 96 F L 10/04/20 16:00 Pulse 79 10/05/20 04:00 Resp 17 10/05/20 04:00 BP 114/63 10/05/20 04:00 Pulse Ox 100 10/05/20 04:00 Intake & Output 10/04/20 10/05/20 10/05/20 18:59 06:59 18:59 Intake Total 1756.133 706.769 200 Output Total 300 Balance 1456.133 706.769 200 Weight 70.5 kg Intake: Intake, IV Titration 1276.133 706.769 Amount Heparin Sod,Pork in 0.45% 226.133 181.769 NaCl 25,000 unit In 0.45 % NaCl 1 250ml.bag @ 12 UNITS/KG/HR 8.165 mls/hr IV .Q24H [facility] Rx#: [id number] Sodium Chloride 0.9% 1, 1000 525 000 ml @ 75 mls/hr IV . [id number] [facility] Rx#:[id number] 2 gm In 50 Sodium Chloride 0.9% 50 ml @ 100 mls/hr IVPB Q24HR [facility] Rx#:[id number] Oral 480 200 Output: Urine 300 Other: Voiding Method Toilet Toilet - Constitutional General appearance: Present: no acute distress - Respiratory Respiratory: bilateral: rhonchi - Cardiovascular Rhythm: regular Heart sounds: normal: S1, S2 Abnormal Heart Sounds: Present: systolic murmur - Labs CBC & Chem 7: 10/05/20 05:50 10/05/20 05:50 Labs: Abnormal Lab Results - Last 24 Hours (Table) 10/04/20 10/05/20 10/05/20 Range/Units 15:10 05:50 05:50 WBC 16.1 H (3.8-10.6) k/uL RBC 3.38 L (3.80-5.40) m/uL Hgb 9.8 L (11.4-16.0) gm/dL Hct 33.8 L (34.0-46.0) % MCHC 29.0 L (31.0-37.0) g/dL PT 17.1 H (9.0-12.0) sec INR 1.7 H (<1.2) APTT 51.8 H 82.0 H (22.0-30.0) sec Sodium (137-145) mmol/L Chloride (98-107) mmol/L BUN (7-17) mg/dL Creatinine (0.52-1.04) mg/dL Glucose (74-99) mg/dL 10/05/20 Range/Units 05:50 WBC (3.8-10.6) k/uL RBC (3.80-5.40) m/uL Hgb (11.4-16.0) gm/dL Hct (34.0-46.0) % MCHC (31.0-37.0) g/dL PT (9.0-12.0) sec INR (<1.2) APTT (22.0-30.0) sec Sodium 135 L (137-145) mmol/L Chloride 109 H (98-107) mmol/L BUN 65 H (7-17) mg/dL Creatinine 2.24 H (0.52-1.04) mg/dL Glucose 103 H (74-99) mg/dL Microbiology - Last 24 Hours (Table) 10/02/20 08:49 Blood Culture Gram Stain - Final Blood Blood Culture - Final Streptococcus pneumoniae 10/02/20 08:49 Blood Culture Gram Stain - Final Blood Blood Culture - Final Streptococcus pneumoniae Assessment and Plan Assessment: Assessment #1 permanent atrial fibrillation was controlled heart rate #2 valvular heart disease #3 chronic kidney disease #4 multiple comorbid conditions Plan #1 continue the current medical regimen #2 DC Lasix by mouth and start Lasix IV #3 monitor the kidney function and electrolytes #4 DC heparin IV in view of the hemoptysis #5 decrease the dose of losartan
--- NOTE | 2020-10-05 09:33 | P.PN ---
Subjective Progress Note Date: 10/05/20 78-year-old here patient is being seen in follow-up today on 10/04/2020 regarding pneumococcal pneumonia. The patient was admitted to the hospital on 10/02/2020 for worsening shortness of breath and fever and chest tightness. She was diagnosed having a right-sided pneumonia. She tested negative for COVID 19x2 and subsequently she was found to have a streptococcal pneumonia pneumonia with secondary bacteremia primarily involving the right lung. She is known to have COPD patient also developed atrial fibrillation with rapid ventricular response. She has a prior diagnosis of non-small cell lung cancer and she has undergone a previous right lower lobe wedge resection without the need for any systemic chemotherapy or radiation therapy. Her other comorbid conditions include hypertension, hyperlipidemia, chronic kidney disease and hypothyroidism. Clinically the patient is doing much better. She still has a congested cough. Unable to bring up much sputum. She is currently on 2 L of oxygen by nasal cannula. INR is at 1.6 and the patient remains subtherapeutic on Coumadin. The patient is also on IV heparin. Cardiac rhythm is still atrial fibrillation. On today's evaluation of 10/05/2020, the patient is feeling okay. She is slightly less short of breath. She has some minimal amount of bloody mucus and for that reason the patient was taken off of IV heparin and the patient was Undergoing Evaluation with Warfarin. INR Is Today at 1.7 and the Patient Is Going to Receive Another 3 Mg of Coumadin. No Epistaxis. No Significant hemoptysis and her mucus is slightly blood-tinged. No chest pain. No fever. No chills. The patient is still on IV Rocephin 2 g every 24 hours. Repeat chest x-ray still showing consolidation of the right lung consistent with underlying pneumonia. She is known to have hypertension, hyperlipidemia and chronic kidney disease and hypothyroidism. Her cardiac rhythm is atrial fibrillation and the patient was already on long-term medical condition with warfarin on outpatient basis. She is afebrile. She is on oxygen at 2 L and her pulse ox is around 99%. Her echocardiogram showed some valvular abnormalities. She has normal ejection fraction. Objective - Vital Signs Vital signs: Vital Signs Temp 96 F L 10/04/20 16:00 Pulse 79 10/05/20 04:00 Resp 17 10/05/20 04:00 BP 114/63 10/05/20 04:00 Pulse Ox 100 10/05/20 04:00 Intake & Output 10/04/20 10/05/20 10/05/20 18:59 06:59 18:59 Intake Total 1756.133 706.769 200 Output Total 300 Balance 1456.133 706.769 200 Weight 70.5 kg Intake: Intake, IV Titration 1276.133 706.769 Amount Heparin Sod,Pork in 0.45% 226.133 181.769 NaCl 25,000 unit In 0.45 % NaCl 1 250ml.bag @ 12 UNITS/KG/HR 8.165 mls/hr IV .Q24H [facility] Rx#: [id number] Sodium Chloride 0.9% 1, 1000 525 000 ml @ 75 mls/hr IV . [id number] [facility] Rx#:[id number] cefTRIAXone 2 gm In 50 Sodium Chloride 0.9% 50 ml @ 100 mls/hr IVPB Q24HR [facility] Rx#:[id number] Oral 480 200 Output: Urine 300 Other: Voiding Method Toilet Toilet - Exam The patient appeared well nourished and normally developed. Vital signs as documented. Head exam is unremarkable. No scleral icterus or corneal arcus noted. Neck is without jugular venous distension, thyromegaly, or carotid bruit s. Carotid upstrokes are brisk bilaterally. Lungs are clear to auscultation and percussion. Cardiac exam reveals the PMI to be normally sized and situated. Rhythm is regular. First and second heart sounds normal. Systolic ejection murmurs grade 3/6. No rubs or gallops. Abdominal exam reveals normal bowel sounds, no masses, no organomegaly and no aortic enlargement. Extremities are nonedematous and both femoral and pedal pulses are normal. - Labs CBC & Chem 7: 10/05/20 05:50 10/05/20 05:50 Labs: Abnormal Lab Results - Last 24 Hours (Table) 10/04/20 10/05/20 10/05/20 Range/Units 15:10 05:50 05:50 WBC 16.1 H (3.8-10.6) k/uL RBC 3.38 L (3.80-5.40) m/uL Hgb 9.8 L (11.4-16.0) gm/dL Hct 33.8 L (34.0-46.0) % MCHC 29.0 L (31.0-37.0) g/dL PT 17.1 H (9.0-12.0) sec INR 1.7 H (<1.2) APTT 51.8 H 82.0 H (22.0-30.0) sec Sodium (137-145) mmol/L Chloride (98-107) mmol/L BUN (7-17) mg/dL Creatinine (0.52-1.04) mg/dL Glucose (74-99) mg/dL 10/05/20 Range/Units 05:50 WBC (3.8-10.6) k/uL RBC (3.80-5.40) m/uL Hgb (11.4-16.0) gm/dL Hct (34.0-46.0) % MCHC (31.0-37.0) g/dL PT (9.0-12.0) sec INR (<1.2) APTT (22.0-30.0) sec Sodium 135 L (137-145) mmol/L Chloride 109 H (98-107) mmol/L BUN 65 H (7-17) mg/dL Creatinine 2.24 H (0.52-1.04) mg/dL Glucose 103 H (74-99) mg/dL Microbiology - Last 24 Hours (Table) 10/03/20 09:23 Gram Stain - Final Sputum Sputum Culture - Final 10/02/20 08:49 Blood Culture Gram Stain - Final Blood Blood Culture - Final Streptococcus pneumoniae 10/02/20 08:49 Blood Culture Gram Stain - Final Blood Blood Culture - Final Streptococcus pneumoniae Assessment and Plan Plan: 1 pneumococcal pneumonia with secondary bacteremia. The patient presented with a right lower lobe pneumonia. The rice virus/Covid 19 testing 2 has been negative. The patient remains on IV Rocephin 2 g every 24 hours. Clinically improving. Chest x-ray still showing some consolidation. The patient encounter some mild hemoptysis where she had blood-tinged mucus today. She is being anticoagulated with warfarin and the patient is currently off IV heparin. 1 Chronic atrial fibrillation with rapid ventricular response, better rate control and the patient is currently off IV heparin and she is being adequately regulated only with warfarin with an INR of 1.7. 3 COPD 4 previous history of non-small cell lung cancer with a previous right lower lobe wedge resection without any subsequent need for chemotherapy or radiation therapy 5 hypertension 6 hyperlipidemia 7 chronic kidney disease was stable creatinine at 2.2 8 hypothyroidism 9 osteoarthritis 10 Leukocytosis, secondary to above Plan Continue IV Rocephin 2 g every 24 hours, and stop the Zithromax. The patient is to complete a total of 2 weeks course of antibiotics Stop the IV heparin Give the patient 3 mg of Coumadin today and monitor the PT/INR to monitor the hemoptysis Repeat chest x-ray in the morning Lasix was given by cardiology Echocardiogram was noted and the patient has a normal left ejection fraction with some mitral regurgitation, aortic valve stenosis and secondary pulmonary hypertension. Continue prednisone 30 mg by mouth daily as part of burst taper Continue Spiriva as maintenance for COPD, in combination with Symbicort and Ventolin rescue inhaler on an as-needed basis Monitor oxygenation as the patient is currently on 2 L of oxygen by nasal cannula staying in hospital for another 24 hours.
[2020-10-05 11:18] LABS: Band Neutrophils % 3 %; Eosinophils # (M) 0.16 k/uL (0-0.7); Lymphocytes # (M) 1.61 k/uL (1.0-4.8); Metamyelocytes # (M) 0.48 k/uL (0); Metamyelocytes % 3 %; Monocytes # (M) 0.64 k/uL (0-1.0); Myelocytes # (M) 1.61 k/uL (0); Myelocytes % 10 %; Neutrophils % (M) 71 %; Nucleated Red Blood Cells 0 /100 WBC (0-0); Total Cells Counted 200
[2020-10-05 11:19] LABS: Poikilocytosis (M) Present; Toxic Granulation Present
[2020-10-05] MEDS ORDERED: WARFARIN 2 MG TAB PO ONE (18:00)
[2020-10-05] MEDS ORDERED: WARFARIN 3 MG TAB PO ONE (18:00)
[2020-10-05] MEDS: FUROSEMIDE 10 MG/ML 2 ML VIAL IV SCH (20:36)
[2020-10-05] MEDS: HYDROcodone/APAP 7.5-325MG 1 EACH TAB PO PRN (20:44)
--- NOTE | 2020-10-06 07:23 | P.PN ---
Subjective Progress Note Date: 10/06/20 Principal diagnosis: Abnormal cardiac enzymes This is a pleasant 80-year-old female patient who I see in the office as an outpatient with underlying COPD, chronic kidney disease, valvular heart disease, and permanent atrial fibrillation who was admitted to the hospital with incr easing shortness of breath and she was diagnosed with pneumonia. The patient was seen this morning. She stated that the shortness of breath is slightly better compared to yesterday. No symptoms of chest pain or chest discomfort. On examination she definitely does have her breathing sounds bilate rally and mild bilateral lower extremities edema. The chest x-ray from yesterday revealed worsening right lower lobe infiltrate with bilateral pleural effusion. She continues to be on Coumadin and INR today is 1.7. The creatinine is a slightly worse compared to yesterday. I would recommend continue the patient on IV Lasix for additional 24 hours and switch her to by mouth Lasix by tomorrow. We'll continue monitor the kidney function as well as electrolytes. The blood pressure seems to be slightly better after we decrease the dose of losartan yesterday. Objective - Vital Signs Vital signs: Vital Signs Temp 97.3 F L 10/05/20 20:00 Pulse 91 10/06/20 04:00 Resp 17 10/06/20 04:00 BP 122/61 10/06/20 04:00 Pulse Ox 98 10/06/20 04:00 Intake & Output 10/05/20 10/06/20 10/06/20 18:59 06:59 18:59 Intake Total 680 Output Total 550 Balance 130 Weight 71.6 kg Intake: Oral 680 Output: Urine 550 Other: Voiding Method Toilet # Voids 1 - Constitutional General appearance: Present: no acute distress - Respiratory Respiratory: bilateral: CTA - Cardiovascular Rhythm: regular Heart sounds: normal: S1, S2 Abnormal Heart Sounds: Present: systolic murmur - Labs CBC & Chem 7: 10/05/20 05:50 10/05/20 05:50 Labs: Abnormal Lab Results - Last 24 Hours (Table) 10/05/20 Range/Units 05:50 WBC 16.1 H (3.8-10.6) k/uL RBC 3.38 L (3.80-5.40) m/uL Hgb 9.8 L (11.4-16.0) gm/dL Hct 33.8 L (34.0-46.0) % MCHC 29.0 L (31.0-37.0) g/dL Neutrophils # (Manual) 11.90 H (1.3-7.7) k/uL Metamyelocytes # (Man) 0.48 H (0) k/uL Myelocytes # (Manual) 1.61 H (0) k/uL Microbiology - Last 24 Hours (Table) 10/03/20 09:23 Gram Stain - Final Sputum Sputum Culture - Final Assessment and Plan Assessment: Assessment #1 permanent atrial fibrillation was controlled heart rate #2 valvular heart disease #3 chronic kidney disease #4 multiple comorbid conditions Plan #1 continue the current medical regimen #2 continue IV Lasix for additional 24 hours #3 monitor the kidney function and electrolytes #4 continue Coumadin and monitor the INR #5 obtain BNP
[2020-10-06 07:45] LABS: HCT 34.2 % (34.0-46.0); HGB 10.9 gm/dL (11.4-16.0); Hypochromasia Slight; MCH 31.3 pg (25.0-35.0); MCV 98.1 fL (80.0-100.0); Mean Platelet Volume 7.9; Platelet Count 330 k/uL (150-450); RBC 3.49 m/uL (3.80-5.40); RDW 14.8 % (11.5-15.5); WBC 16.4 k/uL (3.8-10.6)
[2020-10-06 07:57] LABS: INR 2.1 (<1.2); Prothrombin Time 20.8 sec (9.0-12.0)
[2020-10-06 07:59] LABS: Calcium 9.9 mg/dL (8.4-10.2); Potassium 4.1 mmol/L (3.5-5.1)
[2020-10-06] MEDS: ALBUTEROL HFA INHALER INHALATION SCH ×4 (08:57→21:21)
[2020-10-06] MEDS: SYMBICORT 160-4.5 MCG INHALER INHALATION SCH ×2 (08:57→21:21)
[2020-10-06] MEDS: TIOTROPIUM 2.5 MCG INHALER INHALATION SCH (08:58)
[2020-10-06] MEDS: CHOLECALCIFEROL 1,000 UNIT TAB PO SCH (09:16)
[2020-10-06] MEDS: ASCORBIC ACID 500 MG TAB PO SCH (09:16)
[2020-10-06] MEDS: allopurinoL 100 MG TAB PO SCH ×2 (09:16→19:57)
[2020-10-06] MEDS: LOSARTAN 25 MG TAB PO SCH (09:17)
[2020-10-06] MEDS: FUROSEMIDE 10 MG/ML 2 ML VIAL IV SCH ×2 (09:17→19:57)
[2020-10-06] MEDS: predniSONE 10 MG TAB PO SCH (09:17)
[2020-10-06] MEDS: FERROUS SULFATE 325 MG TAB PO SCH (09:17)
[2020-10-06] MEDS: FAMOTIDINE 20 MG TAB PO SCH (09:17)
--- NOTE | 2020-10-06 13:33 | CONS ---
CONSULTATION REASON FOR CONSULT: Renal failure. HISTORY OF PRESENT ILLNESS: The patient is an 80-year-old female who was initially admitted to the hospital on 10/02/2020 with complaints of shortness of breath. Her COVID-19 test was negative. The patient had outpatient treatment with antibiotics and Medrol Dosepak. Currently she is maintained on antibiotics for pneumonia. She was also bacteremic with blood cultures growing Streptococcus pneumoniae. Currently maintained on ceftriaxone. The patient also has had evidence of volume overload and was started on Lasix 20 mg q.12 hours two days ago. Cozaar was added today. Urine output is not accurately charted. Weight seems to have increased over the last couple of days. Blood pressure is slightly on the lower side with systolic around 112 and 119 mmHg with a systolic of 98 mmHg previously on 10/04/2020. Serum creatinine has been around 2 with admission creatinine at 1.98 and currently at 2.2 and 2.3 mg/dL on 10/06/2020. Review of previous labs show serum creatinine 1.9 and 2 in March of 2020 as well as October of 2019. Patient does have CKD stage 4 and follows at our office. 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 PAST SURGICAL HISTORY: Lung surgery, details not clear. Patient also had tubal ligation. She had a history of lung cancer. Details not available. SOCIAL HISTORY: Patient is a former smoker. No history of drug abuse or alcohol abuse. MEDICATIONS: Medications prior to admission included Lasix, [place], Zyloprim, vitamin D3, Rocaltrol, Zithromax, iron, potassium, Coumadin, Medrol Dosepak. ALLERGIES: None. REVIEW OF SYSTEMS: As per HPI. Other systems negative. PHYSICAL EXAMINATION: Patient is comfortable, awake. She is in mild distress, mildly short of breath. Blood pressure is 122/61, heart rate 91 per minute. She is afebrile. Exam reveals trace lower extremity edema. [employer] exam is grossly intact. Abdomen is soft, nontender. Lungs and heart are not examined due to possible COVID infection. LABS: Labs show hemoglobin 10.9, white cell count 16.4, sodium 136, potassium 4.1, chloride 107. BUN 72, serum creatinine 2.36. Calcium 9.9 mg/dL. ASSESSMENT: 1. 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 Baseline creatinine around 2 mg/dL. Renal function close to baseline. 2. Mild acute kidney injury associated with some degree of hypoperfusion when systolic blood pressure was down in the 90s as well as a reading of around 80 mmHg for systolic blood pressure on 10/03/2020. The patient has been started on Cozaar. If her renal function continues to worsen, and blood pressure remains borderline, we may need to decrease the dose/hold angiotensin receptor blockers. No other antihypertensive medications on board at this time. 3. Chronic obstructive pulmonary disease with exacerbation. 4. Sepsis with Streptococcus pneumoniae bacteremia secondary to pneumonia currently maintained on Rocephin. 5. Chronic atrial fibrillation with rapid ventricular response, currently with controlled ventricular response maintained. Currently off IV heparin, maintained on Coumadin. 6. History of non-small cell lung cancer with previous right lower lobe wedge resection. No chemotherapy or radiation therapy. 7. Generalized debility. 8. Diastolic heart failure, ejection fraction 55% to 60%, currently maintained on low- dose IV Lasix. 9. Moderate to severe pulmonary hypertension with elevated right heart pressures and mild to moderate mitral regurgitation and moderate tricuspid regurgitation. PLAN: Continue with IV Lasix. Monitor blood pressure. May need to hold angiotensin receptor blockers if blood pressure remains low and renal function worsens. Repeat labs in a.m. Continue to avoid nephrotoxic agents. Check accurate I's and O's and maintain daily weights. Thank you for this consultation. Will continue to follow the patient with you during her hospitalization. MMODL / IJN: [id number] /
--- NOTE | 2020-10-06 15:15 | PN ---
PROGRESS NOTE DATE OF SERVICE: October 06, 2020 This is an 80-year-old female who we recently saw in consultation. She was admitted with Streptococcus pneumoniae bacteremia and Streptococcus pneumoniae pneumonia involving the right lung. She has been tested for COVID twice now and both tests have been negative. Currently, she is on appropriate medications. She is feeling better. She is hoping to be discharged tomorrow. I did tell her it was up to her primary care provider. In addition, she has a history of chronic atrial fibrillation with RVR, COPD, previous history of non-small cell lung cancer, status post right lower lobe wedge resection without any subsequent need for chemotherapy or radiation therapy, hypertension, hyperlipidemia, chronic kidney disease, hypothyroidism, osteoarthritis, and leukocytosis. Currently, the patient continues on appropriate medications. The patient is currently just on Rocephin. Zithromax was discontinued. The patient is feeling much better. PHYSICAL EXAMINATION: VITAL SIGNS: Current vital signs are reviewed temperature is 97.3 heart rate is 90, respiratory rate 17, blood pressure 122/61, mean 81 and 2 L saturations 98%. GENERAL: Appears in no acute distress. HEENT: Examination is grossly unremarkable. NECK: Supple. Full range of motion. No adenopathy. Neck veins are flat. CARDIOVASCULAR: Examination reveals regular rhythm and rate. S1, S2 normal. No S3, S4, or murmur. LUNGS: Reveal a few scattered rhonchi, particularly in the right lung. No wheezes or crackles. Breath sounds equal. ABDOMEN: Soft. Bowel sounds are heard. EXTREMITIES: Are intact. No cyanosis, clubbing, or edema. SKIN: Without rash. NEUROLOGIC: Examination is nonfocal. LABS: Labs are reviewed. White count 16.4, hemoglobin 10.9, hematocrit 34.2, platelet count 330,000. PT, INR were 20.8 and 2.1 respectively. Sodium 136, potassium 4.1, chloride 107, CO2 of 24. Anion gap is 5. BUN and creatinine were 72 and 2.36. N-terminal proBNP 84559. Microbiology was positive for strep pneumoniae in the blood, both on October 02. The most recent chest x-ray was done on . It shows bilateral infiltrates, there is a small pleural effusion, larger on the right. CURRENT MEDICATIONS: Current medications include albuterol inhaler, Zyloprim, vitamin C, Symbicort, Rocaltrol, Rocephin, vitamin D3, Pepcid, iron, Lasix 20 mg IV push q.12 hours, [place], losartan, prednisone Spiriva, and warfarin. ASSESSMENT: 1. Streptococcus pneumoniae pneumonia/bacteremia, involving primarily the right lung. Testing for COVID x2 was negative. 2. History of underlying chronic obstructive pulmonary disease. 3. Atrial fibrillation with rapid ventricular response. 4. Prior diagnosis of non-small cell lung cancer, status post right lower lobe wedge resection, without need for chemo/radiation subsequently. 5. History of chronic obstructive pulmonary disease from previous tobacco use. 6. Hypertension. 7. Hyperlipidemia. 8. Degenerative joint disease. 9. Chronic kidney disease. 10.History of thyroid disease. PLANS: The patient could probably be discharged tomorrow. Dr. Lopez in Infectious Disease thought the patient could be transitioned to oral Bactrim. No additional recommendations are made. We will make sure she follows in the office with Dr. Petersen. I will continue to follow. Prognosis is guarded. Clinically she looks well. MMODL / IJN: [id number] /
[2020-10-06] MEDS ORDERED: WARFARIN 3 MG TAB PO ONE (18:00)
[2020-10-06 18:25] LABS: Appearance,Urine Clear (Clear); Bacteria,Urine Rare /hpf; Bilirubin,Urine Negative (Negative); Blood,Urine Trace (Negative); Color,Urine Light Yellow; Glucose,Urine (UA) Negative (Negative); Hyaline Casts,Urine 4 /lpf (0-2); Ketones,Urine Negative (Negative); Leukocyte Esterase,Urine Negative (Negative); Mucus,Urine Rare /hpf; Nitrite,Urine Negative (Negative); Protein,Urine Negative (Negative); Specific Gravity,Urine 1.009 (1.001-1.035); Squamous Epithelial Cell,Urine 3 /hpf (0-4); Urobilinogen,Urine <2.0 mg/dL (<2.0); WBC,Urine 2 /hpf (0-5)
[2020-10-06] MEDS: HYDROcodone/APAP 7.5-325MG 1 EACH TAB PO PRN (19:56)
--- NOTE | 2020-10-06 23:17 | PN ---
PROGRESS NOTE DATE OF SERVICE: 10/06/2020 REASON FOR FOLLOWUP: Strep pneumo bacteremia and pneumonia. INTERVAL HISTORY: Patient is currently afebrile. The patient is breathing more comfortably. Denies having any chest pain. Occasional cough. No nausea. No vomiting. No abdominal pain or diarrhea. PHYSICAL EXAMINATION: Blood pressure 121/68 with a pulse of 100. Temperature 97.5. She is 97% on 2 L nasal cannula. General description is an elderly female up in the bed in no distress. Respiratory system: Unlabored breathing with decreased intensity in breath sounds in the base, with no wheeze. Heart S1, S2. Regular rate and rhythm. ABDOMEN: Soft, no tenderness. LABS: Hemoglobin is 10.8, white count 16.4, BUN of 72, creatinine 2.36. DIAGNOSTIC IMPRESSION AND PLAN: Patient with strep pneumo bacteremia, source likely pneumonia. This patient currently covered with Rocephin 2 grams daily to continue while monitoring clinical course closely. Continue supportive care. MMODL / IJN: [id number] /
[2020-10-07 05:20] VITALS: RESP 18
[2020-10-07 08:09] LABS: INR 2.2 (<1.2); Prothrombin Time 21.4 sec (9.0-12.0)
[2020-10-07] MEDS: ASCORBIC ACID 500 MG TAB PO SCH (08:28)
[2020-10-07] MEDS: allopurinoL 100 MG TAB PO SCH (08:29)
[2020-10-07] MEDS: predniSONE 10 MG TAB PO SCH (08:29)
[2020-10-07] MEDS: FERROUS SULFATE 325 MG TAB PO SCH (08:29)
[2020-10-07] MEDS: LOSARTAN 25 MG TAB PO SCH (08:29)
[2020-10-07] MEDS: CHOLECALCIFEROL 1,000 UNIT TAB PO SCH (08:29)
[2020-10-07] MEDS: FAMOTIDINE 20 MG TAB PO SCH (08:29)
[2020-10-07] MEDS: SYMBICORT 160-4.5 MCG INHALER INHALATION SCH (08:51)
[2020-10-07] MEDS: ALBUTEROL HFA INHALER INHALATION SCH ×2 (08:51→12:23)
[2020-10-07] MEDS: TIOTROPIUM 2.5 MCG INHALER INHALATION SCH (08:51)
[2020-10-07] MEDS ORDERED: SULFAMETHOX-TMP 800-160MG 1 EACH TAB PO SCH (09:00)
--- NOTE | 2020-10-07 09:14 | P.PN ---
Subjective Progress Note Date: 10/07/20 Principal diagnosis: Abnormal cardiac enzymes This is a pleasant 80-year-old female patient who I see in the office as an outpatient with underlying COPD, chronic kidney disease, valvular heart disease, and permanent atrial fibrillation who was admitted to the hospital with incr easing shortness of breath and she was diagnosed with pneumonia. The patient was seen this morning October [id number]. She stated that she is feeling better and the shortness of breath has improved. On examination she does have clear breathing sounds bilaterally. She denies any symptoms of chest pain or chest discomfort. The creatinine is slightly worse. At this point I am going to DC Lasix IV and start the patient on Lasix by mouth with 20 mg twice a day. Continue monitor the kidney function and electrolytes and possible discharge in the next 24 hours. Objective - Vital Signs Vital signs: Vital Signs Temp 97.7 F 10/07/20 04:00 Pulse 106 H 10/07/20 04:00 Resp 18 10/07/20 04:00 BP 124/61 10/07/20 04:00 Pulse Ox 92 L 10/07/20 04:00 Intake & Output 10/06/20 10/07/20 10/07/20 18:59 06:59 18:59 Intake Total 290 Output Total 250 Balance 290 -250 Weight 66 kg Intake: Intake, IV Titration 50 Amount cefTRIAXone 2 gm In 50 Sodium Chloride 0.9% 50 ml @ 100 mls/hr IVPB Q24HR [facility] Rx#:[id number] Oral 240 Output: Urine 250 Other: Voiding Method Toilet # Voids 3 4 - Constitutional General appearance: Present: no acute distress - Respiratory Respiratory: bilateral: CTA - Cardiovascular Rhythm: regular Heart sounds: normal: S1, S2 Abnormal Heart Sounds: Present: systolic murmur - Labs CBC & Chem 7: 10/06/20 07:25 10/06/20 07:25 Labs: Abnormal Lab Results - Last 24 Hours (Table) 10/06/20 10/07/20 Range/Units 18:20 07:34 PT 21.4 H (9.0-12.0) sec INR 2.2 H (<1.2) Urine Blood Trace H (Negative) Urine Bacteria Rare H (None) /hpf Hyaline Casts 4 H (0-2) /lpf Urine Mucus Rare H (None) /hpf Assessment and Plan Assessment: Assessment #1 permanent atrial fibrillation was controlled heart rate #2 valvular heart disease #3 chronic kidney disease #4 multiple comorbid conditions Plan #1 continue the current medical regimen #2 DC Lasix IV and start the patient on Lasix by mouth #3 discharged home in the next 12-24 hours
[2020-10-07 10:18] LABS: Potassium 4.2 mmol/L (3.5-5.1)
[2020-10-07 11:12] VITALS: BP 110/56; PULSE 91; TEMP 97.3
--- NOTE | 2020-10-07 11:56 | CDI ---
Documentation Clarification Form Date: 10/07/2020 11:08:10 AM From: Patrizia Chino RN CCDS Admit Date: 10/02/2020 10:01:00 AM Patient Name: Sweta Dixon Visit Number: [id number] Discharge Date: ATTENTION: The Clinical Documentation Specialists (CDI) and [facility] Coding Staff appreciate your assistance in clarifying documentation. Please respond to the clarification below the line at the bottom and electronically sign. The CDI & [facility] Coding staff will review the response and follow-up if needed. Please note: Queries are made part of the Legal Health Record. If you have any questions, please contact the author of this message via ITS. Dr. Gio David MD Diastolic heart failure, ejection fraction 55% to 60%, currently maintained on low dose IV Lasix. Is documented in Nephrology Consult 10/06 History/Risk Factors: 78-year-old female presents to the ED with shortness of breath for one week. Tested for COVID negative one week ago. Medical Hx: COPD; HTN Clinical Indicators: VS/Pulse OX 10/06: B/P 129/59; HR 94; Temp 97.6 F Oral; RR 16; SpO2 98% 2L nc BNP 10/06: 72788 Echocardiogram Results 1226: Mild concentric left ventricular hypertrophy. Overall left ventricular systolic function is normal with, EF between 55 -60%. Left ventricular filling pressure cannot be estimated due to Atrial Fibrillation. Mild to moderate aortic valve sclerosis, mild to moderate mitral regurgitation, moderate tricuspid regurgitation, moderate to severe pulmonary hypertension. CXR 10/02: COPD with patchy right mid and lower lung infiltrate. Small right effusion CXR 10/05: Worsening bilateral lung infiltrates greater on the right. Small pleural effusions larger on the right Cardiology Progress Note 10/03: Echocardiogram completed revealed ejection fraction 55-60%, mild to moderate aortic valve sclerosis, mild to moderate mitral regurgitation, moderate tricuspid regurgitation, moderate to severe pulmonary hypertension. Treatment: 10/[address] Chaudhry - Lasix 40mg PO MOWEFR d/c 10/05; 10/[address] David Lasix 20mg IV Q12HR d/c 10/07; 10/[address] David Lasix 20mg PO BID In your professional opinion, can you please clarify the CHF if known? Chronic Diastolic Heart Failure Acute on Chronic Diastolic Heart Failure Heart Failure Ruled Out Unable to Determine Other, please specify (Last Revision: January 2018) ELIDAD
--- NOTE | 2020-10-07 11:58 | PN ---
PROGRESS NOTE PULMONARY/CRITICAL CARE PROGRESS NOTE: DATE OF SERVICE: October 07, 2020. This is an 80-year-old female who was seen recently in consultation for right-sided pneumonia. Blood cultures came back positive for Streptococcus pneumoniae. Hence, she has Streptococcus pneumoniae pneumonia as well as Streptococcus pneumoniae bacteremia. The patient tested negative for COVID-19 twice. Currently, she is doing much better. The patient was placed on Rocephin per ID. He mentioned discharging her on Bactrim DS. Currently, the patient is feeling well. She does have a history of chronic atrial fibrillation with RVR, COPD, prior history of non-small cell lung cancer, status post right lower lobe wedge resection without any subsequent need for chemotherapy or radiation therapy, essential hypertension, hyperlipidemia, chronic kidney disease, hypothyroidism, DJD, and leukocytosis. PHYSICAL EXAMINATION: VITAL SIGNS: Current vital signs include a temperature of 97.7, heart rate 98, respiratory rate 18, blood pressure 124/61, mean 82, saturations on 2 L are 98%. Appears in no acute distress. HEENT: Examination is grossly unremarkable. Nasal O2 noted. NECK: Supple. Full range of motion. No adenopathy. Neck veins are flat. CARDIOVASCULAR: Examination reveals regular rhythm and rate. Heart rate 98 beats per minute. S1, S2 normal. LUNGS: Diffuse rhonchi, particularly in the right lung. No wheezes. No crackles. Left lung is clear. Breath sounds are diminished on the right side. ABDOMEN: Soft. Bowel sounds are heard. EXTREMITIES: Intact. No cyanosis, clubbing, or edema. SKIN: Without rash. NEUROLOGIC: Examination is nonfocal. LABS: Reviewed. PT 21.4, INR 2.2. Sodium 136, potassium 4.2 chloride 104, CO2 29, anion gap is 3. BUN and creatinine were 77 and 2.33. Urine was negative. Microbiology was positive for Streptococcus pneumoniae in blood cultures from 10/02. IMAGING: No recent chest x-ray. MEDICATIONS: Reviewed. Currently, the patient is on albuterol inhaler, zyloprim, vitamin C, Symbicort, Rocaltrol, vitamin D3, Pepcid, iron, Lasix, [place], losartan, prednisone, Bactrim, Spiriva, and warfarin. ASSESSMENT: 1. Streptococcus pneumoniae pneumonia/bacteremia, involving primarily the right lung. Testing for COVID times two was negative. 2. History of underlying COPD. 3. Atrial fibrillation with RVR. 4. Prior diagnosis of non-small cell lung cancer, status post right lower lobe wedge resection, without need for chemo/radiation therapy. 5. History of chronic obstructive pulmonary disease from previous tobacco use. 6. Hypertension. 7. Hyperlipidemia. 8. Degenerative joint disease. 9. Chronic kidney disease. 10.History of thyroid disease. PLAN: The patient's Rocephin was discontinued in favor of Bactrim. She apparently is being discharged home potentially today. I asked her to follow up with her primary doctor and lung doctor, Dr. Petersen, not next week but the week after. No additional recommendations made. Clinically she is doing well. Appreciate input from Infectious Diseases. MMODL / IJN: [id number] /
[2020-10-07 12:14] LABS: HCT 34.8 % (34.0-46.0); HGB 10.9 gm/dL (11.4-16.0); Hypochromasia Moderate; MCH 30.6 pg (25.0-35.0); MCHC 31.4 g/dL (31.0-37.0); MCV 97.5 fL (80.0-100.0); Platelet Count 281 k/uL (150-450); RBC 3.57 m/uL (3.80-5.40); RDW 14.6 % (11.5-15.5); WBC 16.4 k/uL (3.8-10.6)
[2020-10-07 12:43] VITALS: BMI 26.6
[2020-10-07 13:08] LABS: Band Neutrophils % 3 %; Eosinophils # (M) 0.16 k/uL (0-0.7); Lymphocytes # (M) 1.48 k/uL (1.0-4.8); Metamyelocytes # (M) 0.82 k/uL (0); Metamyelocytes % 5 %; Monocytes # (M) 1.48 k/uL (0-1.0); Myelocytes # (M) 1.15 k/uL (0); Myelocytes % 7 %; Neutrophils % (M) 68 %; Nucleated Red Blood Cells 0 /100 WBC (0-0); Total Cells Counted 200
[2020-10-07 13:10] LABS: Poikilocytosis (M) Present
--- NOTE | 2020-10-07 14:49 | PN ---
PROGRESS NOTE Patient is seen for followup for acute kidney injury. The patient is sitting up in a bedside chair. She states she is feeling better. She is currently being diuresed. Blood pressure had been on the lower side and Cozaar was decreased. The patient has had good urine output. PHYSICAL EXAMINATION: Today blood pressure is 110/56, heart rate 91 per minute. She is afebrile. Examination of the heart S1, S2. Examination of lungs, decreased breath sounds at bases. ABDOMEN: Soft, nontender. Obese. Exam of lower extremities shows no significant edema. Trace edema noted bilaterally. LABORATORY COORDINATOR exam grossly intact. LAB: Show sodium of 136, potassium 4.2, chloride 104, BUN 77, serum creatinine 2.3 mg/dL. Hemoglobin was 10.9 g/dL. ASSESSMENT: 1. Acute kidney injury associated with hypoperfusion and cardiorenal syndrome. Renal function stable with some improvement in creatinine today. The Cozaar dose has been decreased and the Lasix is also switched to p.o. The patient will need to monitor renal function as outpatient. She could be discharged from nephrology standpoint. 2. 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 Baseline creatinine around 2. 3. Chronic obstructive pulmonary disease with exacerbation now improved. 4. Sepsis with Streptococcus pneumoniae bacteremia secondary to pneumonia currently maintained on Rocephin. 5. Chronic atrial fibrillation with RVR currently with controlled ventricular response. 6. History of non-small cell lung cancer with previous right lower lobe wedge resection. No chemotherapy or radiation therapy. 7. Diastolic heart failure EF 55-60 percent, maintained on Lasix currently switched to p.o. 8. Moderate to severe pulmonary hypertension with elevated right heart pressures and mild to moderate mitral regurgitation and moderate tricuspid. PLAN: Patient could be discharged from nephrology standpoint. Continue with oral Lasix. Monitor blood pressure at home. Avoid hypotension, maintained lower dose on the Cozaar for now. Repeat labs as outpatient in 1-2 weeks. Follow up as outpatient for CKD in 2- 3 weeks time. MMODL / IJN: [id number] /
[2020-10-07] MEDS ORDERED: FUROSEMIDE 20 MG TAB PO SCH (16:00)
[2020-10-07] MEDS ORDERED: WARFARIN 3 MG TAB PO ONE (18:00)
== END 2020-10-07 14:35 | disposition home health service (06) | DRG 871 ==
LOC: EC 08:29 → 3SCARD 10:01
PROVIDERS: ADMIT Internal Medicine; ATTEND Internal Medicine
DX: A40.3 Sepsis due to Streptococcus pneumoniae (principal); J13 Pneumonia due to Streptococcus pneumoniae; I13.0 Hypertensive heart and chronic kidney disease with heart failure and stage 1 through stage 4 chronic kidney disease, or unspecified chronic kidney disease; I48.21 Permanent atrial fibrillation; J44.0 Chronic obstructive pulmonary disease with (acute) lower respiratory infection; N18.4 Chronic kidney disease, stage 4 (severe); N17.9 Acute kidney failure, unspecified; J44.1 Chronic obstructive pulmonary disease with (acute) exacerbation; I50.30 Unspecified diastolic (congestive) heart failure; E78.5 Hyperlipidemia, unspecified; E03.9 Hypothyroidism, unspecified; E87.6 Hypokalemia; G43.909 Migraine, unspecified, not intractable, without status migrainosus; Z20.828 Contact with and (suspected) exposure to other viral communicable diseases; R53.81 Other malaise; I08.1 Rheumatic disorders of both mitral and tricuspid valves; R79.1 Abnormal coagulation profile; I27.20 Pulmonary hypertension, unspecified; M19.90 Unspecified osteoarthritis, unspecified site; Z87.891 Personal history of nicotine dependence; Z79.899 Other long term (current) drug therapy; Z79.51 Long term (current) use of inhaled steroids; Z79.01 Long term (current) use of anticoagulants; Z85.118 Personal history of other malignant neoplasm of bronchus and lung; Z98.51 Tubal ligation status; Z98.890 Other specified postprocedural states; Z82.49 Family history of ischemic heart disease and other diseases of the circulatory system; Z83.3 Family history of diabetes mellitus; Z82.5 Family history of asthma and other chronic lower respiratory diseases
CPT/HCPCS: 36415; 71045; 71046; 80048; 80053; 81001; 82728; 83605; 83615; 83735; 83880; 84145; 84484; 85025; 85027; 85379; 85610; 85730; 86140; 87040; 87070; 87077; 87186; 87205; 87635; 93005; 93306; 94640; 96365; 96375; 99291

== ENCOUNTER → 2020-10-28 | Outpatient (CLI) | payer MEDICARE, BC ==
--- NOTE | 2020-10-28 09:57 | US ---
EXAMINATION TYPE: US kidneys/renal and bladder DATE OF EXAM: 10/28/2020 COMPARISON: US 10/29/2015 CLINICAL HISTORY: Chronic kidney disease, stage 3 N18.4. EXAM MEASUREMENTS: Right Kidney: 10.3 x 4.1 x 4.0 cm Left Kidney: 8.5 x 4.7 x 4.6 cm Right Kidney: No hydronephrosis. Multiple cystic areas visualized, largest measuring 2.4 x 2.0 x 2.0 cm Left Kidney: No hydronephrosis. Multiple cystic areas visualized, largest measuring 4.2 x 4.0 x 3.8 c m Bladder: Not distended, wnl as visualized Bilateral Jets seen: No There is no evidence for hydronephrosis at this point in time. No nephrolithiasis is seen. IMPRESSION: 1. Bilateral renal cysts.
== END | disposition home or self-care (01) ==
LOC: RADUSWWP 09:12
PROVIDERS: ATTEND Internal Medicine Nephrology
DX: N28.1 Cyst of kidney, acquired (principal); N18.4 Chronic kidney disease, stage 4 (severe)
CPT/HCPCS: 76770

== ENCOUNTER → 2021-01-18 | Outpatient (CLI) | payer MEDICARE, BC ==
[2021-01-18 11:12] LABS: Basophils # (A) 0.08 X 10*3/uL (0.00-0.10); Basophils % (A) 0.9 %; Eosinophils % (A) 14.5 %; HCT 30.5 % (37.2-46.3); HGB 8.9 g/dL (12.0-15.0); Lymphocytes # (A) 1.35 X 10*3/uL (0.90-5.00); Lymphocytes % (A) 15.1 %; MCH 29.6 pg (27.0-32.0); MCHC 29.2 g/dL (32.0-37.0); MCV 101.3 fL (80.0-97.0); Mean Platelet Volume 10.1 fL (9.5-12.2); Monocytes # (A) 0.72 X 10*3/uL (0.20-1.00); Neutrophils # (A) 5.48 X 10*3/uL (1.80-7.70); Neutrophils % (A) 61.1 %; Platelet Count 400 X 10*3/uL (140-440); RBC 3.01 X 10*6/uL (4.10-5.20); RDW 14.3 % (11.5-14.5); WBC 8.97 X 10*3/uL (4.50-10.00)
[2021-01-18 13:11] LABS: Erythrocyte Sedimentation Rate 58 mm/Hr (0-30)
[2021-01-18 17:01] LABS: T4, Free (Free Thyroxine) 1.2 ng/dL (0.80-1.80)
[2021-01-18 18:10] LABS: Ferritin 519.1 ng/mL (10.0-291.0)
[2021-01-18 19:34] LABS: % Iron Saturation 18.59 (12.00-45.00); African American GFR (CKD) 22.2 (60.0-200.0); Albumin 3.5 g/dL (3.80-4.90); Albumin/Globulin Ratio 1.17 (1.60-3.17); Anion Gap 8.5 mmol/L (4.00-12.00); Carbon Dioxide 27.5 mmol/L (21.6-31.8); Non-African American GFR(CKD) 19.2 (60.0-200.0); Potassium 4.7 mmol/L (3.5-5.5); Total Bilirubin 0.5 mg/dL (0.3-1.2); Total Protein 6.5 g/dL (6.2-8.2); Uric Acid 9.5 mg/dL (2.9-7.7)
== END | disposition home or self-care (01) ==
LOC: LABWHC1 07:10
PROVIDERS: ATTEND Internal Medicine
DX: D50.9 Iron deficiency anemia, unspecified (principal); Z79.01 Long term (current) use of anticoagulants; E78.5 Hyperlipidemia, unspecified
CPT/HCPCS: 36415; 80053; 82728; 83540; 83550; 84439; 84443; 84550; 85025; 85652

== ENCOUNTER → 2021-01-26 | Outpatient (CLI) | payer MEDICARE, BC ==
--- NOTE | 2021-01-26 14:34 | CT ---
EXAMINATION TYPE: CT chest wo con DATE OF EXAM: 01/26/2021 COMPARISON: Chest CT March 20, 2019. PET/CT March 22, 2019. HISTORY: difficulty breathing CT DLP: 176.8 mGycm. Automated Exposure Control for Dose Reduction was Utilized. TECHNIQUE: CT scan of the thorax is performed without IV contrast. High-resolution protocol with 1 m m sequence obtained in 10 mm intervals in supine and prone technique. FINDINGS: Exam is suboptimal as patient could not complete prone imaging due to extreme shortness of breath. LUNGS: Moderate to advanced underlying emphysematous change greatest in the upper lungs is redemonstrated. N ew small left greater than right bilateral pleural effusions. The right mid to lower lung shows honey combing and interlobular septal thickening with irregular areas of consolidation favoring posttreatme nt change at site of prior neoplasm posterior aspect right lower lobe. There is associated compressiv e atelectasis in the left lung base. No pneumothorax seen bilaterally. Right-sided volume loss noted with mediastinal shift. MEDIASTINUM: Lack of IV contrast and technique are noted to limit evaluation for mediastinal and mirella cially hilar adenopathy. There are no definitive new greater than 1 cm mediastinal lymph nodes. Mild cardiomegaly is present. There is coronary artery calcification and/or stent seen. Enlarged right pul monary artery redemonstrated, CT findings consistent with underlying pulmonary hypertension. OTHER: Partial visualization of stent graft in the abdominal aorta. There is volume loss and cortical lobulation and visualized portion of the left kidney suspected products of chronic medical renal dis ease.. IMPRESSION: Suboptimal study. Moderate to advanced underlying emphysematous change with parenchymal f ibrotic changes right mid to lower lung at area of prior neoplasm new from 2019 study. Right-sided vo lume loss noted.
== END | disposition home or self-care (01) ==
LOC: RADCTMAIN 13:41
PROVIDERS: ATTEND Internal Medicine
DX: R06.00 Dyspnea, unspecified (principal)
CPT/HCPCS: 71250

== ENCOUNTER 2021-01-27 17:14 | Inpatient (IN) | payer MEDICARE, BC ==
[2021-01-27] MEDS ORDERED: IBUPROFEN 600 MG TAB PO STA (17:48)
[2021-01-27] MEDS ORDERED: ACETAMINOPHEN TAB 500 MG TAB PO STA (17:48)
[2021-01-27] MEDS: SODIUM CHLORIDE 0.9% 500 ML 500 ML IV SCH ×2 (17:54→17:55)
[2021-01-27 18:03] LABS: Basophils # (A) 0.1 k/uL (0-0.2); Basophils % (A) 0 %; Eosinophils # (A) 0.2 k/uL (0-0.7); Eosinophils % (A) 2 %; HGB 9.1 gm/dL (11.4-16.0); Lymphocytes # (A) 0.8 k/uL (1.0-4.8); Lymphocytes % (A) 7 %; MCHC 32.6 g/dL (31.0-37.0); MCV 95.2 fL (80.0-100.0); Mean Platelet Volume 7.4; Monocytes # (A) 0.6 k/uL (0-1.0); Monocytes % (A) 5 %; Neutrophils # (A) 10.9 k/uL (1.3-7.7); Neutrophils % (A) 86 %; Platelet Count 363 k/uL (150-450); RBC 2.94 m/uL (3.80-5.40); RDW 14.3 % (11.5-15.5); WBC 12.6 k/uL (3.8-10.6)
[2021-01-27 18:16] LABS: Albumin 3.4 g/dL (3.5-5.0); Calcium 10.7 mg/dL (8.4-10.2); Potassium 4.9 mmol/L (3.5-5.1); Total Bilirubin 0.5 mg/dL (0.2-1.3)
--- NOTE | 2021-01-27 18:16 | ED ---
General Adult HPI - General Chief complaint: Shortness of Breath Stated complaint: sob/not eating Time Seen by Provider: 01/27/21 17:15 Source: patient, RN notes reviewed, old records reviewed Mode of arrival: ambulatory Limitations: altered mental status - History of Present Illness Initial comments: This is a 80-year-old female who is a very poor historian she does states she has lung cancer but has not had treatment. Patient states she was diagnosed in September. Patient states she came in today because she was short of breath per patient denies chest pain or palpitations. Patient denies fever or chills. Patient denies abdominal pain patient denies nausea vomiting diarrhea. Patient denies swelling to legs calf tenderness. Patient denies any injury or trauma. There is no further history available this time - Related Data Home Medications Medication Instructions Recorded Confirmed HYDROcodone/APAP 7.5-325MG [[place] 1 tab PO HS 05/26/16 01/27/21 7.5-325] Ipratropium-Albuterol Nebulize 3 ml INHALATION RT-BID PRN 03/27/19 01/27/21 [Duoneb 0.5 mg-3 mg/3 ml Soln] calcitrioL [Rocaltrol] 0.25 mcg PO MOFR 03/27/19 01/27/21 Vit C/E/Zn/Coppr/Lutein/Zeaxan 1 cap PO DAILY 04/02/19 01/27/21 [Preservision Areds 2 Softgel] Ferrous Sulfate [Iron (65 MG 325 mg PO DAILY 10/02/20 01/27/21 Elemental)] Furosemide [Lasix] 40 mg PO MOWEFR 01/27/21 01/27/21 Warfarin Sodium [[place]] 2.5 mg PO DAILY 01/27/21 01/27/21 Previous Rx's Medication Instructions Recorded Cefuroxime Axetil [Ceftin] 500 mg PO BID 10 Days #20 tab 10/07/20 Losartan [Cozaar] 25 mg PO DAILY #30 tab 10/07/20 Allergies Allergy/AdvReac Type Severity Reaction Status Date / Time No Known Allergies Allergy Verified 01/27/21 18:35 Review of Systems ROS Statement: Those systems with pertinent positive or pertinent negative responses have been documented in the HPI. ROS Other: All systems not noted in ROS Statement are negative. Past Medical History Past Medical History: Cancer, COPD, Hyperlipidemia, Hypertension, Osteoarthritis (OA), Renal Disease, Thyroid Disorder Additional Past Medical History / Comment(s): lung ca History of Any Multi-Drug Resistant Organisms: None Reported Past Surgical History: Tubal Ligation Additional Past Surgical History / Comment(s): hx blood clot left arm 3 yrs ago - surgery to remove clot-has endurant abdominal stent graft feb 28 2016, lung surgery Past Anesthesia/Blood Transfusion Reactions: Previous Problems w/ Anesthesia, Family History of Problems w/ Anesthesia Additional Past Anesthesia/Blood Transfusion Reaction / Comment(s): Slow to Awaken, patient and daughter. Past Psychological History: No Psychological Hx Reported Smoking Status: Former smoker Past Alcohol Use History: None Reported Past Drug Use History: None Reported - Past Family History Father Family Medical History: COPD, Diabetes Mellitus, Myocardial Infarction ([place]) Mother Additional Family Medical History / Comment(s): at age 31 - cause unknown Brother(s) Additional Family Medical History / Comment(s): states kidney and heart history Sister(s) Family Medical History: Myocardial Infarction ([place]) Additional Family Medical History / Comment(s): dialysis General Exam - General Exam Comments Initial Comments: GENERAL: Patient is well-developed and well-nourished. Patient is nontoxic and well- hydrated and is in no acute distress. ENT: Neck is soft and supple. No significant lymphadenopathy is noted. Oropharynx is clear. Moist mucous membranes. Neck has full range of motion without eliciting any pain. EYES: The sclera were anicteric and conjunctiva were pink and moist. Extraocular movements were intact and pupils were equal round and reactive to light. Eyelids were unremarkable. PULMONARY: Unlabored respirations. Good breath sounds bilaterally. Patient has crackles in the right base CARDIOVASCULAR: There is a regular rate and rhythm without any murmurs gallops or rubs. ABDOMEN: Soft and nontender with normal bowel sounds. SKIN: Skin is clear with no lesions or rashes and otherwise unremarkable. NEUROLOGIC: Patient is alert and oriented 2 Cranial nerves II through XII are grossly intact. Motor and sensory are also intact. Normal speech, volume and content. Symmetrical smile. MUSCULOSKELETAL: Normal extremities with adequate strength and full range of motion. No lower extremity swelling or edema. No calf tenderness. LYMPHATICS: No significant lymphadenopathy is noted PSYCHIATRIC: Normal psychiatric evaluation. Limitations: no limitations Course Vital Signs 01/27/21 01/27/21 01/27/21 17:16 17:41 17:46 Temperature 99.9 F H 100.6 F H Pulse Rate 115 H Respiratory 18 20 Rate Blood Pressure 130/78 O2 Sat by Pulse 98 Oximetry 01/27/21 01/27/21 18:00 18:57 Temperature 98.7 F Pulse Rate 115 H 103 H Respiratory 18 18 Rate Blood Pressure 117/78 105/66 O2 Sat by Pulse 99 97 Oximetry Medical Decision Making - Medical Decision Making EKG shows atrial fibrillation with rapid ventricular response at 126 bpm QRS is 86 QT interval 308 QTC is 446. EKG shows no ST segment elevation or depression Chest x-ray shows no acute abnormality. I spoke with the hospitalist and admitted the patient for altered mental status and did start the patient antibiotics because of the white count and the fact that she was altered. - Lab Data Result diagrams: 01/27/21 17:29 01/27/21 17:29 Lab Results 01/27/21 01/27/21 01/27/21 Range/Units 17:29 17:29 17:29 WBC 12.6 H (3.8-10.6) k/uL RBC 2.94 L (3.80-5.40) m/uL Hgb 9.1 L (11.4-16.0) gm/dL Hct 28.0 L (34.0-46.0) % MCV 95.2 (80.0-100.0) fL MCH 31.0 (25.0-35.0) pg MCHC 32.6 (31.0-37.0) g/dL RDW 14.3 (11.5-15.5) % Plt Count 363 (150-450) k/uL MPV 7.4 Neutrophils % 86 % Lymphocytes % 7 % Monocytes % 5 % Eosinophils % 2 % Basophils % 0 % Neutrophils # 10.9 H (1.3-7.7) k/uL Lymphocytes # 0.8 L (1.0-4.8) k/uL Monocytes # 0.6 (0-1.0) k/uL Eosinophils # 0.2 (0-0.7) k/uL Basophils # 0.1 (0-0.2) k/uL PT 21.6 H (9.0-12.0) sec INR 2.2 H (<1.2) APTT 35.4 H (22.0-30.0) sec Sodium 133 L (137-145) mmol/L Potassium 4.9 (3.5-5.1) mmol/L Chloride 101 (98-107) mmol/L Carbon Dioxide 26 (22-30) mmol/L Anion Gap 6 mmol/L BUN 62 H (7-17) mg/dL Creatinine 2.82 H (0.52-1.04) mg/dL Est GFR (CKD-EPI)AfAm 17 (>60 ml/min/1.73 sqM) Est GFR (CKD-EPI)NonAf 15 (>60 ml/min/1.73 sqM) Glucose 114 H (74-99) mg/dL Plasma Lactic Acid Micky (0.7-2.0) mmol/L Calcium 10.7 H (8.4-10.2) mg/dL Total Bilirubin 0.5 (0.2-1.3) mg/dL AST 18 (14-36) U/L ALT 9 (4-34) U/L Alkaline Phosphatase 61 (38-126) U/L Troponin I (0.000-0.034) ng/mL Total Protein 7.0 (6.3-8.2) g/dL Albumin 3.4 L (3.5-5.0) g/dL Urine Color Urine Appearance (Clear) Urine pH (5.0-8.0) Ur Specific [place] (1.001-1.035) Urine Protein (Negative) Urine Glucose (UA) (Negative) Urine Ketones (Negative) Urine Blood (Negative) Urine Nitrite (Negative) Urine Bilirubin (Negative) Urine Urobilinogen (<2.0) mg/dL Ur Leukocyte Esterase (Negative) Urine RBC (0-5) /hpf Urine WBC (0-5) /hpf Ur Squamous Epith Cells (0-4) /hpf Urine Bacteria (None) /hpf Urine Mucus (None) /hpf Coronavirus (PCR) (Not Detectd) 01/27/21 01/27/21 01/27/21 Range/Units 17:29 17:29 17:48 WBC (3.8-10.6) k/uL RBC (3.80-5.40) m/uL Hgb (11.4-16.0) gm/dL Hct (34.0-46.0) % MCV (80.0-100.0) fL MCH (25.0-35.0) pg MCHC (31.0-37.0) g/dL RDW (11.5-15.5) % Plt Count (150-450) k/uL MPV Neutrophils % % Lymphocytes % % Monocytes % % Eosinophils % % Basophils % % Neutrophils # (1.3-7.7) k/uL Lymphocytes # (1.0-4.8) k/uL Monocytes # (0-1.0) k/uL Eosinophils # (0-0.7) k/uL Basophils # (0-0.2) k/uL PT (9.0-12.0) sec INR (<1.2) APTT (22.0-30.0) sec Sodium (137-145) mmol/L Potassium (3.5-5.1) mmol/L Chloride (98-107) mmol/L Carbon Dioxide (22-30) mmol/L Anion Gap mmol/L BUN (7-17) mg/dL Creatinine (0.52-1.04) mg/dL Est GFR (CKD-EPI)AfAm (>60 ml/min/1.73 sqM) Est GFR (CKD-EPI)NonAf (>60 ml/min/1.73 sqM) Glucose (74-99) mg/dL Plasma Lactic Acid Micky 1.5 (0.7-2.0) mmol/L Calcium (8.4-10.2) mg/dL Total Bilirubin (0.2-1.3) mg/dL AST (14-36) U/L ALT (4-34) U/L Alkaline Phosphatase (38-126) U/L Troponin I 0.023 (0.000-0.034) ng/mL Total Protein (6.3-8.2) g/dL Albumin (3.5-5.0) g/dL Urine Color Urine Appearance (Clear) Urine pH (5.0-8.0) Ur Specific [place] (1.001-1.035) Urine Protein (Negative) Urine Glucose (UA) (Negative) Urine Ketones (Negative) Urine Blood (Negative) Urine Nitrite (Negative) Urine Bilirubin (Negative) Urine Urobilinogen (<2.0) mg/dL Ur Leukocyte Esterase (Negative) Urine RBC (0-5) /hpf Urine WBC (0-5) /hpf Ur Squamous Epith Cells (0-4) /hpf Urine Bacteria (None) /hpf Urine Mucus (None) /hpf Coronavirus (PCR) Not Detected (Not Detectd) 01/27/21 Range/Units 20:40 WBC (3.8-10.6) k/uL RBC (3.80-5.40) m/uL Hgb (11.4-16.0) gm/dL Hct (34.0-46.0) % MCV (80.0-100.0) fL MCH (25.0-35.0) pg MCHC (31.0-37.0) g/dL RDW (11.5-15.5) % Plt Count (150-450) k/uL MPV Neutrophils % % Lymphocytes % % Monocytes % % Eosinophils % % Basophils % % Neutrophils # (1.3-7.7) k/uL Lymphocytes # (1.0-4.8) k/uL Monocytes # (0-1.0) k/uL Eosinophils # (0-0.7) k/uL Basophils # (0-0.2) k/uL PT (9.0-12.0) sec INR (<1.2) APTT (22.0-30.0) sec Sodium (137-145) mmol/L Potassium (3.5-5.1) mmol/L Chloride (98-107) mmol/L Carbon Dioxide (22-30) mmol/L Anion Gap mmol/L BUN (7-17) mg/dL Creatinine (0.52-1.04) mg/dL Est GFR (CKD-EPI)AfAm (>60 ml/min/1.73 sqM) Est GFR (CKD-EPI)NonAf (>60 ml/min/1.73 sqM) Glucose (74-99) mg/dL Plasma Lactic Acid Micky (0.7-2.0) mmol/L Calcium (8.4-10.2) mg/dL Total Bilirubin (0.2-1.3) mg/dL AST (14-36) U/L ALT (4-34) U/L Alkaline Phosphatase (38-126) U/L Troponin I (0.000-0.034) ng/mL Total Protein (6.3-8.2) g/dL Albumin (3.5-5.0) g/dL Urine Color Yellow Urine Appearance Cloudy H (Clear) Urine pH 5.5 (5.0-8.0) Ur Specific [place] 1.016 (1.001-1.035) Urine Protein 1+ H (Negative) Urine Glucose (UA) Negative (Negative) Urine Ketones Negative (Negative) Urine Blood Moderate H (Negative) Urine Nitrite Negative (Negative) Urine Bilirubin Negative (Negative) Urine Urobilinogen <2.0 (<2.0) mg/dL Ur Leukocyte Esterase Moderate H (Negative) Urine RBC 1 (0-5) /hpf Urine WBC 4 (0-5) /hpf Ur Squamous Epith Cells 30 H (0-4) /hpf Urine Bacteria Many H (None) /hpf Urine Mucus Rare H (None) /hpf Coronavirus (PCR) (Not Detectd) Disposition Clinical Impression: Dyspnea, Altered mental status Disposition: ADMITTED IP TO THIS HOSP Referrals: Shannon Petersen MD [Primary Care Provider] - 1-2 days Time of Disposition: 21:20
[2021-01-27 18:18] LABS: INR 2.2 (<1.2); Partial Thromboplastin Time 35.4 sec (22.0-30.0); Prothrombin Time 21.6 sec (9.0-12.0)
--- NOTE | 2021-01-27 19:32 | XR ---
EXAMINATION TYPE: XR chest 1V portable DATE OF EXAM: 01/27/2021 CLINICAL HISTORY: Fever. Shortness of breath. Vomiting. Lung cancer. TECHNIQUE: Portable frontal view of the chest. COMPARISON: 10/05/2020 FINDINGS: There is redemonstrated fibrotic changes of the bilateral lungs, right-sided volume loss, and chronic blunting of the right costophrenic angle which may be related to scarring versus small pl eural fluid. No new focal airspace opacity. No new or increased pleural effusion. No pneumothorax. Th e cardiomediastinal silhouette is within normal limits for size. Pulmonary vasculature is normal. IMPRESSION: Chronic changes as above. No new or worsened acute cardiopulmonary process.
[2021-01-27 20:49] LABS: Appearance,Urine Cloudy (Clear); Bacteria,Urine Many /hpf; Bilirubin,Urine Negative (Negative); Blood,Urine Moderate (Negative); Color,Urine Yellow; Glucose,Urine (UA) Negative (Negative); Ketones,Urine Negative (Negative); Leukocyte Esterase,Urine Moderate (Negative); Mucus,Urine Rare /hpf; Nitrite,Urine Negative (Negative); PH, Urine 5.5 (5.0-8.0); Protein,Urine 1+ (Negative); RBC,Urine 1 /hpf (0-5); Specific Gravity,Urine 1.016 (1.001-1.035); Squamous Epithelial Cell,Urine 30 /hpf (0-4); Urobilinogen,Urine <2.0 mg/dL (<2.0); WBC,Urine 4 /hpf (0-5)
[2021-01-27] MEDS ORDERED: SODIUM CHLORIDE 0.9% 1,000 ML IV ONE (21:21)
[2021-01-27] MEDS ORDERED: HYDROcodone/APAP 7.5-325MG 1 EACH TAB PO ONE (21:41)
[2021-01-28] MEDS ORDERED: IPRATROPIUM-ALBUTEROL 3 ML NEB INHALATION PRN (09:30)
[2021-01-28] MEDS ORDERED: FUROSEMIDE 40 MG TAB PO SCH (09:45)
[2021-01-28] MEDS: LOSARTAN 25 MG TAB PO SCH (10:47)
[2021-01-28] MEDS: ALPRAZolam 0.25 MG TAB PO PRN (10:47)
[2021-01-28] MEDS: FERROUS SULFATE 325 MG TAB PO SCH (10:47)
[2021-01-28] MEDS: CEFDINIR 300 MG CAP PO SCH ×2 (11:39→21:14)
[2021-01-28] MEDS: VIT A,C & E-LUTEIN-MINERALS 1 EACH TAB PO SCH (11:39)
[2021-01-28] MEDS: IPRATROPIUM-ALBUTEROL 3 ML NEB INHALATION SCH ×3 (11:44→19:33)
--- NOTE | 2021-01-28 11:59 | P.CNPUL ---
History of Present Illness Consult date: 01/28/21 Requesting physician: Pedro Pablo Joseph Reason for consult: dyspnea, cough, COPD, hypoxemia Chief complaint: Shortness of breath, cough, wheezing, chest congestion. History of present illness: Primary consult dated 01/28/2021. 80-year-old female, well-known to our service. The patient has history of COPD, lung cancer. Currently, the patient comes into the emergency room, on January 27, complaining of increasing shortness of breath, chest congestion, coughing, and wheezing. She denied any chest pain or pressure. She denied any fever or chills. The patient denied abdominal pain, nausea, vomiting, diarrhea, and genitourinary complaints. He was seen in the ER, and admitted with a diagnosis of COPD exacerbation, and mental status changes. Chest x-ray is positive for some chronic changes but nothing acute. In April 2019, she was diagnosed with non-small cell lung cancer, squamous cell type. She was last in the hospital in September,. White count 12.6, hemoglobin 9.1, hematocrit 28.0, and platelet count was 363,000. PT 21.6, INR 2.2, and PTT is 35.4. Sodium 133, potassium 4.9, chlorides 101, CO2 26, anion gap 6, BUN 62, creatinine 2.82. Coronavirus testing was negative. She is currently on 4 L nasal cannula, and getting saline at 75 mL an hour. Review of Systems REVIEW OF SYSTEMS: CONSTITUTIONAL: Weakness. NEUROLOGIC: [ Negative.] HEENT: [ Negative.] CARDIAC: [Negative.] PULMONARY: Shortness of breath, cough, wheezing, chest congestion. GI: [Negative.] : [Negative.] RHEUMATOLOGIC: [ Negative.] IMMUNOLOGIC: [ Negative.] ENDOCRINE: [Negative. ] DERMATOLOGIC: [Negative.] Past Medical History Past Medical History: Atrial Fibrillation, Cancer, COPD, Deep Vein Thrombosis (DVT), Hyperlipidemia, Hypertension, Osteoarthritis (OA), Renal Disease, Thyroid Disorder Additional Past Medical History / Comment(s): lung cancer had surgery 2 years ago History of Any Multi-Drug Resistant Organisms: None Reported Past Surgical History: Tubal Ligation Additional Past Surgical History / Comment(s): hx blood clot left arm 3 yrs ago - surgery to remove clot-has endurant abdominal stent graft feb 28 2016, removal of lower right lobe Past Anesthesia/Blood Transfusion Reactions: Previous Problems w/ Anesthesia, Family History of Problems w/ Anesthesia Additional Past Anesthesia/Blood Transfusion Reaction / Comment(s): Slow to Awaken, patient and daughter. Past Psychological History: No Psychological Hx Reported Smoking Status: Former smoker Past Alcohol Use History: None Reported Additional Past Alcohol Use History / Comment(s): Smoked 48 years, Quit 2008 Past Drug Use History: None Reported - Past Family History Father Family Medical History: COPD, Diabetes Mellitus, Myocardial Infarction ([place]) Mother Additional Family Medical History / Comment(s): at age 31 - cause unknown Brother(s) Additional Family Medical History / Comment(s): states kidney and heart history Sister(s) Family Medical History: Myocardial Infarction ([place]) Additional Family Medical History / Comment(s): dialysis Medications and Allergies Home Medications Medication Instructions Recorded Confirmed Type HYDROcodone/APAP 7.5-325MG [[place] 1 tab PO HS 05/26/16 01/27/21 History 7.5-325] Ipratropium-Albuterol Nebulize 3 ml INHALATION RT-BID PRN 03/27/19 01/27/21 History [Duoneb 0.5 mg-3 mg/3 ml Soln] calcitrioL [Rocaltrol] 0.25 mcg PO MOFR 03/27/19 01/27/21 History Vit C/E/Zn/Coppr/Lutein/Zeaxan 1 cap PO DAILY 04/02/19 01/27/21 History [Preservision Areds 2 Softgel] Ferrous Sulfate [Iron (65 MG 325 mg PO DAILY 10/02/20 01/27/21 History Elemental)] Cefuroxime Axetil [Ceftin] 500 mg PO BID 10 Days #20 tab 10/07/20 01/27/21 Rx Losartan [Cozaar] 25 mg PO DAILY #30 tab 10/07/20 01/27/21 Rx Furosemide [Lasix] 40 mg PO MOWEFR 01/27/21 01/27/21 History Warfarin Sodium [Jantoven] 2.5 mg PO DAILY 01/27/21 01/27/21 History Allergies Allergy/AdvReac Type Severity Reaction Status Date / Time No Known Allergies Allergy Verified 01/27/21 18:35 Physical Exam Osteopathic Statement: *. No significant issues noted on an osteopathic structural exam other than those noted in the History and Physical/Consult. Vitals: Vital Signs Temp Pulse Pulse Resp BP BP Pulse Ox 01/28/21 11:44 104 H 18 01/28/21 11:27 98.1 F 102 H 22 138/83 96 01/28/21 08:45 95 01/28/21 08:00 97.9 F 101 H 22 138/83 96 01/28/21 00:10 97.6 F 102 H 22 101/63 99 01/27/21 23:00 107 H 16 103/77 97 01/27/21 18:57 98.7 F 103 H 18 105/66 97 01/27/21 18:00 115 H 18 117/78 99 01/27/21 17:46 100.6 F H 01/27/21 17:41 20 01/27/21 17:16 99.9 F H 115 H 18 130/78 98 Intake and Output 01/27/21 01/28/21 01/28/21 22:59 06:59 14:59 Intake Total 350 Balance 350 Intake: Intake, IV Titration 350 Amount Sodium Chloride 0.9% 1, 350 000 ml @ 75 mls/hr IV . [id number] ONE Rx#:[id number] Other: Voiding Method Toilet Bedside Commode # Voids 1 Weight 65.771 kg 68 kg Mild conversational dyspnea, oriented 3. Very short of breath at the present time, currently on 4 L. Saturations 96%. HEENT examination is grossly unremarkable. Mucous membranes are moist. No oral lesions. Neck supple. Full range of motion. No adenopathy thyromegaly or neck vein distention. Cardiovascular examination reveals regular rhythm rate. S1-S2 normal. No S3 or S4. No discernible murmur noted. Heart sounds distant. Heart rate 102 bpm. Lungs reveal diminished bilateral breath sounds. Expiratory wheezes and rhonchi are noted. There is prolongation on forced maneuver. No crackles. The patient is currently requesting a breathing treatment. Abdomen soft bowel sounds are heard. No masses or tenderness. Extremities are intact. No cyanosis clubbing or edema. Skin is without rash or lesion. Neurologic examination is brief but nonfocal. Results - Laboratory Findings CBC and BMP: 01/27/21 17:29 01/27/21 17:29 PT/INR, D-dimer PT 21.6 sec (9.0-12.0) H 01/27/21 17:29 INR 2.2 (<1.2) H 01/27/21 17:29 Abnormal lab findings: Abnormal Labs 01/27/21 01/27/21 01/27/21 17:29 17:29 17:29 WBC 12.6 H RBC 2.94 L Hgb 9.1 L Hct 28.0 L Neutrophils # 10.9 H Lymphocytes # 0.8 L PT 21.6 H INR 2.2 H APTT 35.4 H Sodium 133 L BUN 62 H Creatinine 2.82 H Glucose 114 H Calcium 10.7 H Albumin 3.4 L Urine Appearance Urine Protein Urine Blood Ur Leukocyte Esterase Ur Squamous Epith Cells Urine Bacteria Urine Mucus 01/27/21 20:40 WBC RBC Hgb Hct Neutrophils # Lymphocytes # PT INR APTT Sodium BUN Creatinine Glucose Calcium Albumin Urine Appearance Cloudy H Urine Protein 1+ H Urine Blood Moderate H Ur Leukocyte Esterase Moderate H Ur Squamous Epith Cells 30 H Urine Bacteria Many H Urine Mucus Rare H - Diagnostic Findings Chest x-ray: image reviewed Assessment and Plan Assessment: Acute exacerbation of COPD. Relatively recent diagnosis of lung cancer, 2019, squamous cell carcinoma the lung. History of hyperlipidemia. History of hypertension. DVT, left arm, 2018. Prior history of tobacco use. Plan: Plan dated 01/28/2021. We will make sure the patient's on appropriate medications which will include albuterol sulfate and ipratropium bromide, 4 times a day and when necessary. In addition, she should get Pulmicort 1 mg, mixed with formoterol, 20 g, twice a day. In addition, the patient should get Solu-Medrol 60 mg every 6 hours. Labs x-rays a medications are all reviewed. We will continue to follow make recomm endations were appropriate. Prognosis is guarded. Time with Patient: Greater than 30
[2021-01-28] MEDS: methylPREDNISolone SOD SUCCI 125 MG/2 ML VIAL IV SCH ×2 (12:10→17:33)
[2021-01-28 12:57] VITALS: BMI 27.3
[2021-01-28 15:19] LABS: INR 2.6 (<1.2)
--- NOTE | 2021-01-28 15:55 | HP ---
HISTORY AND PHYSICAL DATE OF SERVICE: 01/28/2021 CHIEF COMPLAINTS: Shortness of breath, not eating, as well as confusion. HISTORY OF PRESENT ILLNESS: This 80-year-old woman with a past medical history of atrial fibrillation, COPD, DVT, hypertension, hyperlipidemia, history of DJD, tubal ligation, being followed by Dr. Petersen in the outpatient setting, was complaining of increasing shortness of breath. The patient also had a history of lung cancer but was not on treatment. This was diagnosed in September. The patient was short of breath. The patient was not eating well. The patient was mildly confused. The patient was admitted for further evaluation and treatment. The most recent chest x-ray done, which was personally reviewed by me, showed significant bilateral lesions. The labs are showing WBC 12.6, sodium is 133, creatinine is 2.82, indicating chronic kidney disease, stage 3. UA was noted. The patient is followed by Dr. Petersen in the outpatient setting, and Dr. Mendez has seen the patient. The patient is being closely monitored. There is no history of any fever, rigors or chills at this time. PAST MEDICAL HISTORY: History of atrial fibrillation, history of COPD, DVT, hypertension, hyperlipidemia, history of DJD, history of hypothyroidism. MEDICATIONS: Medications prior to admission include Rocaltrol, Jantoven, PreserVision, Cozaar, DuoNeb, nitroglycerin, Lasix, iron, Ceftin. ALLERGIES: NONE. FAMILY HISTORY: History of COPD, diabetes mellitus and myocardial infarction. SOCIAL HISTORY: Previous history of smoking. REVIEW OF SYSTEMS: ENT: Diminished hearing. Diminished vision. CARDIOVASCULAR SYSTEM: As mentioned earlier. RESPIRATORY SYSTEM: As mentioned earlier. GI: No nausea, vomiting. : No dysuria or retention. NERVOUS SYSTEM: No numbness, weakness. ALLERGY/IMMUNOLOGY: No asthma, hayfever. MUSCULOSKELETAL: As mentioned earlier. HEMATOLOGY/ONCOLOGY: No history of anemia. ENDOCRINE: No history of diabetes, hypothyroidism. CONSTITUTIONAL: As mentioned earlier. DERMATOLOGY: Negative. RHEUMATOLOGY: Negative. PSYCHIATRY: As mentioned earlier. PHYSICAL EXAMINATION: Patient is alert, oriented x2. Pulse 102, blood pressure 138/80, respiration 22, temperature 98.1, pulse ox 96% on 4 L. HEENT: Conjunctivae normal. Oral mucosa moist. NECK: No jugular venous distention. No carotid bruit. No lymph node enlargement. CARDIOVASCULAR SYSTEM: S1, S2 muffled. RESPIRATORY SYSTEM: Breath sounds diminished at the bases. Scattered rhonchi and crackles. ABDOMEN: Soft, non-tender. No mass palpable. LEGS: No edema. No swelling. NERVOUS SYSTEM: Higher functions as mentioned earlier. Moves all 4 limbs. No focal motor or sensory deficit. LYMPHATICS: No lymph node palpable in neck, axillae or groin. SKIN: No ulcer, rash, bleeding. JOINTS: No active deforming arthropathy. LABS: WBC 12.7, hemoglobin 9.1. Sodium is 133 and creatinine is 2.8. Other labs are noted. ASSESSMENT: 1. Chronic obstructive pulmonary disease, acute exacerbation, with possible acute purulent tracheobronchitis with acute hypoxic respiratory failure. 2. Increased white count. 3. Change in mental status, possible acute metabolic encephalopathy. 4. Anemia, normocytic anemia of chronic disease. 5. Hyponatremia. 6. Chronic kidney disease, stage 3. 7. Some dehydration and hypercalcemia, present on admission. 8. History of recently diagnosed lung cancer, not on treatment. 9. History of atrial fibrillation. 10.History of chronic obstructive pulmonary disease. 11.History of deep venous thrombosis. 12.Hypertension. 13.Hyperlipidemia. 14.History of degenerative joint disease. 15.Hypothyroidism. 16.NO CODE, NO CPR, NO VENT. RECOMMENDATIONS AND DISCUSSION: In this 80-year-old woman who presented with multiple complex medical issues, we will monitor the patient closely, continue the current medications, continue with symptomatic treatment. Will adjust the bronchodilators. Closely follow with Dr. Mendez. Otherwise, DVT prophylaxis. Resume the home medications. Guarded prognosis because of multiple complex medical issues. Further recommendations to follow. A copy of this dictation is being forwarded to Dr. Petersen, who is the primary dictation. We will monitor the PT, INR closely. IV steroids also have been initiated. Monitor blood sugars closely. MMODL / IJN: [id number] /
[2021-01-28 17:51] LABS: Glucose,Whole Blood 124 mg/dL (75-99)
[2021-01-28] MEDS ORDERED: WARFARIN 2.5 MG TAB PO SCH (18:00)
[2021-01-28] MEDS: FORMOTEROL FUMARATE 20 MCG/2 ML NEBU INHALATION SCH (19:33)
[2021-01-28] MEDS: BUDESONIDE 1 MG/2 ML NEBU INHALATION SCH (19:33)
[2021-01-28 20:20] LABS: Glucose,Whole Blood 218 mg/dL (75-99)
[2021-01-28] MEDS: HYDROcodone/APAP 7.5-325MG 1 EACH TAB PO SCH (20:48)
[2021-01-29] MEDS: methylPREDNISolone SOD SUCCI 125 MG/2 ML VIAL IV SCH ×4 (05:25→17:09)
[2021-01-29 06:27] LABS: Basophils % (A) 0 %; Eosinophils % (A) 0 %; HCT 27.1 % (34.0-46.0); HGB 8.6 gm/dL (11.4-16.0); Hypochromasia Slight; Lymphocytes # (A) 0.5 k/uL (1.0-4.8); Lymphocytes % (A) 8 %; MCH 30.7 pg (25.0-35.0); MCHC 31.7 g/dL (31.0-37.0); MCV 96.9 fL (80.0-100.0); Mean Platelet Volume 7.4; Monocytes # (A) 0.2 k/uL (0-1.0); Monocytes % (A) 3 %; Neutrophils # (A) 5.7 k/uL (1.3-7.7); Neutrophils % (A) 89 %; Platelet Count 347 k/uL (150-450); RDW 14.3 % (11.5-15.5); WBC 6.5 k/uL (3.8-10.6)
[2021-01-29 06:32] LABS: INR 3.1 (<1.2); Prothrombin Time 29.5 sec (9.0-12.0)
[2021-01-29 06:55] LABS: African American GFR (CKD) 14 (>60 ml/min/1.73 sqM); Anion Gap 7 mmol/L; Blood Urea Nitrogen 75 mg/dL (7-17); Calcium 10.1 mg/dL (8.4-10.2); Carbon Dioxide 23 mmol/L (22-30); Chloride 105 mmol/L (98-107); Glucose 166 mg/dL (74-99); Non-African American GFR(CKD) 12 (>60 ml/min/1.73 sqM); Potassium 4.9 mmol/L (3.5-5.1); Sodium 135 mmol/L (137-145)
[2021-01-29 07:04] LABS: Glucose,Whole Blood 179 mg/dL (75-99)
[2021-01-29] MEDS: VIT A,C & E-LUTEIN-MINERALS 1 EACH TAB PO SCH (08:36)
[2021-01-29] MEDS: FERROUS SULFATE 325 MG TAB PO SCH (08:36)
[2021-01-29] MEDS: CEFDINIR 300 MG CAP PO SCH ×2 (08:36→21:36)
[2021-01-29] MEDS: LOSARTAN 25 MG TAB PO SCH (08:36)
[2021-01-29] MEDS: BUDESONIDE 1 MG/2 ML NEBU INHALATION SCH ×2 (08:38→21:10)
[2021-01-29] MEDS: FORMOTEROL FUMARATE 20 MCG/2 ML NEBU INHALATION SCH ×2 (08:38→21:10)
[2021-01-29] MEDS: IPRATROPIUM-ALBUTEROL 3 ML NEB INHALATION SCH ×4 (08:39→21:10)
[2021-01-29 11:24] LABS: Glucose,Whole Blood 241 mg/dL (75-99)
[2021-01-29] MEDS: SODIUM CHLORIDE 0.9% 1,000 ML IV SCH (13:23)
--- NOTE | 2021-01-29 13:44 | P.NPCON ---
History of Present Illness - Reason for Consult Consult date: 01/29/21 acute renal failure - Chief Complaint Acute kidney injury and chronic kidney disease - History of Present Illness This is a 80-year-old female seen in consultation because of acute kidney injury and chronic kidney disease. Her creatinine was 2.8 on admission 2 days ago, went up to 3.43 today. While signs have been unremarkable blood pressure is well controlled in the 110s to 120 range She is known with COPD atrial fibrillation, small cell lung cancer, underwent resection right lower lobe on 05/01/2019 stent graft in 2015. Skin because of worsening shortness of breath She is known with chronic kidney disease with a baseline creatinine of about 2 dated 09/26/2020. Her echocardiogram recently showed a 55-60% ejection fraction. She was hospitalized here in September 2020 with pneumonia. Patient denies any nausea vomiting does feel dizzy sometimes when she stands up. No history of nausea vomiting diarrhea. No fever chills. Previous workup has shown ultrasound 10.3 and 8.57 kidney on 10/28/2020 and the recent computed tomography scan on 01/26/2021 showed moderate to advanced emphysematous changes with parenchymal fibrotic changes in the right mid to lower lung zones where she had prior neoplasm Past Medical History Past Medical History: Atrial Fibrillation, Cancer, COPD, Deep Vein Thrombosis (DVT), Hyperlipidemia, Hypertension, Osteoarthritis (OA), Renal Disease, Thyroid Disorder Additional Past Medical History / Comment(s): lung cancer had surgery 2 years ago History of Any Multi-Drug Resistant Organisms: None Reported Past Surgical History: Tubal Ligation Additional Past Surgical History / Comment(s): hx blood clot left arm 3 yrs ago - surgery to remove clot-has endurant abdominal stent graft feb 28 2016, removal of lower right lobe Past Anesthesia/Blood Transfusion Reactions: Previous Problems w/ Anesthesia, Family History of Problems w/ Anesthesia Additional Past Anesthesia/Blood Transfusion Reaction / Comment(s): Slow to Awaken, patient and daughter. Past Psychological History: No Psychological Hx Reported Smoking Status: Former smoker Past Alcohol Use History: None Reported Additional Past Alcohol Use History / Comment(s): Smoked 48 years, Quit 2008 Past Drug Use History: None Reported - Past Family History Father Family Medical History: COPD, Diabetes Mellitus, Myocardial Infarction ([place]) Mother Additional Family Medical History / Comment(s): at age 31 - cause unknown Brother(s) Additional Family Medical History / Comment(s): states kidney and heart history Sister(s) Family Medical History: Myocardial Infarction ([place]) Additional Family Medical History / Comment(s): dialysis Medications and Allergies Home Medications Medication Instructions Recorded Confirmed Type HYDROcodone/APAP 7.5-325MG [[place] 1 tab PO HS 05/26/16 01/27/21 History 7.5-325] Ipratropium-Albuterol Nebulize 3 ml INHALATION RT-BID PRN 03/27/19 01/27/21 History [Duoneb 0.5 mg-3 mg/3 ml Soln] calcitrioL [Rocaltrol] 0.25 mcg PO MOFR 03/27/19 01/27/21 History Vit C/E/Zn/Coppr/Lutein/Zeaxan 1 cap PO DAILY 04/02/19 01/27/21 History [Preservision Areds 2 Softgel] Ferrous Sulfate [Iron (65 MG 325 mg PO DAILY 10/02/20 01/27/21 History Elemental)] Cefuroxime Axetil [Ceftin] 500 mg PO BID 10 Days #20 tab 10/07/20 01/27/21 Rx Losartan [Cozaar] 25 mg PO DAILY #30 tab 10/07/20 01/27/21 Rx Furosemide [Lasix] 40 mg PO MOWEFR 01/27/21 01/27/21 History Warfarin Sodium [Jantoven] 2.5 mg PO DAILY 01/27/21 01/27/21 History Allergies Allergy/AdvReac Type Severity Reaction Status Date / Time No Known Allergies Allergy Verified 01/27/21 18:35 Physical Exam Vitals: Vital Signs Temp Pulse Pulse Resp BP Pulse Ox 01/29/21 12:43 90 01/29/21 12:35 88 01/29/21 11:34 97.8 F 99 20 122/73 96 01/29/21 09:01 92 01/29/21 08:50 91 01/29/21 08:39 94 94 L 01/29/21 08:00 90 18 01/29/21 04:36 97.7 F 90 18 117/75 97 01/28/21 19:58 98.0 F 70 93 17 113/71 96 01/28/21 19:43 68 01/28/21 19:42 68 01/28/21 19:33 66 01/28/21 16:18 66 18 01/28/21 16:08 94 18 Intake and Output 01/28/21 01/29/21 01/29/21 22:59 06:59 14:59 Other: Voiding Method Bedside Commode Bedside Commode # Voids 1 3 On examination is awake alert oriented comfortable HEENT exam no JVP neck is supple no facial asymmetry Lungs are clear with an occasional coarse crackle at bases and very rarely sees and expiration fairly good air entry bilaterally. Her sounds are unremarkable for any murmur rub gallop she has atrial fibrillation Abdomen soft nontender Extremity exam trace edema Neurologically awake alert oriented Results - Lab Results Most recent lab results Calcium 10.1 mg/dL (8.4-10.2) 01/29/21 06:06 01/29/21 06:06 01/29/21 06:06 Assessment and Plan Plan: Impression 1. Acute kidney injury likely from volume depletion from decreased intake. An element of prerenal from COPD his possibility 2. Chronic kidney disease stage III nephrosclerosis with possible renovascular disease unequal kidney size 8.5 cm left and 10.37 right kidney dated 10/28/2020. 3 admitted with shortness of breath COPD exacerbation improving 4. History of lungs CTA 2019 status post resection 5. History of some For stent graft I'm not sure where it is 6. COPD 7. Atrial fibrillation and Recommendation Agree with IV fluids, and 75 mL of normal saline per hour. Hold Lasix for the above reason Will watch her labs intake and output and if necessary more workup will be done. Thank you for this consultation and we'll continue to follow closely
--- NOTE | 2021-01-29 16:34 | PN ---
PROGRESS NOTE DATE OF SERVICE: 01/29/2021 This 80-year-old woman was admitted with shortness of breath, also had change in mental status. The patient also has acute on chronic renal failure. Patient is receiving cautious IV fluids. Portable chest x-ray done which was reviewed personally by me showed some right pleural effusion, possibly chronic changes. No chest pain. No palpitations. No fever. Past medical history reviewed. REVIEW OF SYSTEMS: CARDIOVASCULAR SYSTEM: No angina or palpitations. RESPIRATORY: As mentioned earlier. GI: As mentioned earlier. : No dysuria. NERVOUS SYSTEM: No numbness or weakness. CURRENT MEDICATIONS: Reviewed and include: [place], DuoNeb, Xanax, Pulmicort, Rocaltrol, iron sulfate, Perforomist, Cozaar and Solu-Medrol. PHYSICAL EXAMINATION: Alert and oriented times three. Pulse is 99. Blood pressure 120/77, respiration 20, temperature 97.8, pulse ox 98% on 4 L. HEENT: Conjunctivae normal. CARDIOVASCULAR: S1, S2 muffled. RESPIRATORY: Breath sounds diminished in the bases. A few scattered rhonchi and crackles. Expiratory wheezing also present. ABDOMEN: Soft, nontender. LEGS are no edema. No swelling. NERVOUS SYSTEM: No focal deficits. LABS: WBC 8.6, and INR 3.1 and creatinine is 2.4. Sodium 135. ASSESSMENT: 1. Severe chronic obstructive pulmonary disease exacerbation with possible acute purulent tracheobronchitis with acute hypoxic respiratory failure present on admission. 2. Increased WBC. 3. Acute renal failure with prerenal acute tubular necrosis. 4. Chronic kidney disease, baseline. 5. Change in mental status acute metabolic encephalopathy. 6. Anemia, normocytic anemia of chronic disease. 7. Hyponatremia. 8. Dehydration, present on admission. 9. Hypercalcemia, present on admission. 10.History of recently diagnosed lung cancer, not on treatment. 11.History of atrial fibrillation, chronic. 12.History of chronic obstructive pulmonary disease. 13.History of deep vein thrombosis. 14.Hypertension. 15.Hyperlipidemia. 16.History of degenerative joint disease. 17.Hypothyroidism. 18.NO CODE, NO CPR, NO VENT. RECOMMENDATIONS AND DISCUSSION: I recommend to continue current medications, management and symptomatic treatment. Continue with bronchodilators. Cautious IV fluids. Nephrology, pulmonology consultations. Guarded prognosis because of multiple complex medical issues. Further recommendations to follow. The patient is on Ceftin. MMODL / IJN: [id number] /
[2021-01-29 16:59] LABS: Glucose,Whole Blood 220 mg/dL (75-99)
[2021-01-29] MEDS: WARFARIN 2 MG TAB PO SCH (17:09)
--- NOTE | 2021-01-29 17:09 | P.PN ---
Subjective Progress Note Date: 01/29/21 Principal diagnosis: Acute exacerbation of COPD 80-year-old female, well-known to our service. The patient has history of COPD, lung cancer. Currently, the patient comes into the emergency room, on January 27, complaining of increasing shortness of breath, chest congestion, coughing, and wheezing. She denied any chest pain or pressure. She denied any fever or chills. The patient denied abdominal pain, nausea, vomiting, diarrhea, and genitourinary complaints. He was seen in the ER, and admitted with a diagnosis of COPD exacerbation, and mental status changes. Chest x-ray is positive for some chronic changes but nothing acute. In April 2019, she was diagnosed with non-small cell lung cancer, squamous cell type. She was last in the hospital in September,. White count 12.6, hemoglobin 9.1, hematocrit 28.0, and platelet count was 363,000. PT 21.6, INR 2.2, and PTT is 35.4. Sodium 133, potassium 4.9, chlorides 101, CO2 26, anion gap 6, BUN 62, creatinine 2.82. Coronavirus testing was negative. She is currently on 4 L nasal cannula, and getting saline at 75 mL an hour. On 01/30/2020 the patient is seen in follow-up on medical floor, she is sitting up in the chair, appears to be in no acute distress, she is on 4 L of oxygen, she is awake and alert, oriented 3, still complaining of shortness of breath especially with exertion, but appears to be in no respiratory distress. Current pulse ox on 4 L of oxygen is 96%, she's been afebrile, hemodynamically she stable, her admission chest x-ray has been reviewed showing chronic changes with no new or worsened acute cardiopulmonary process. Today's labs show no evidence of leukocytosis, white blood cell count is 6.5, hemoglobin is 8.6, INR today is 3.1, electrolytes were unremarkable, BUN was 75, creatinine was 3.4, and her renal function has worsened since admission, the patient remains on IV hydration with 0.9 normal saline at rate of 75 ML per hour, she remains on oral antibiotics in the form of Omnicef, she did bring treatments and IV steroids for acute exacerbation of COPD Objective - Vital Signs Vital signs: Vital Signs Temp 97.8 F 01/29/21 11:34 Pulse 92 01/29/21 16:57 Resp 20 01/29/21 11:34 BP 122/73 01/29/21 11:34 Pulse Ox 96 01/29/21 11:34 Intake & Output 01/28/21 01/29/21 01/29/21 18:59 06:59 18:59 Weight 68 kg Other: Voiding Method Bedside Commode Bedside Commode Bedside Commode # Voids 1 3 - Exam GENERAL EXAM: Alert, very pleasant, 80-year-old white female, on 4 L of oxygen and the pulse ox of 96% comfortable in no apparent distress. HEAD: Normocephalic/atraumatic. EYES: Normal reaction of pupils, equal size. Conjunctiva pink, sclera white. NOSE: Clear with pink turbinates. THROAT: No erythema or exudates. NECK: No masses, no JVD, no thyroid enlargement, no adenopathy. CHEST: No chest wall deformity. Symmetrical expansion. LUNGS: Equal air entry with no crackles, wheeze, rhonchi or dullness. CVS: Regular rate and rhythm, normal S1 and S2, no gallops, no murmurs, no rubs ABDOMEN: Soft, nontender. No hepatosplenomegaly, normal bowel sounds, no guarding or rigidity. EXTREMITIES: No clubbing, no edema, no cyanosis, 2+ pulses and upper and lower extremities. MUSCULOSKELETAL: Muscle strength and tone normal. SPINE: No scoliosis or deformity SKIN: No rashes CENTRAL NERVOUS SYSTEM: Alert and oriented -3. No focal deficits, tone is normal in all 4 extremities. PSYCHIATRIC: Alert and oriented -3. Appropriate affect. Intact judgment and insight. - Labs CBC & Chem 7: 01/29/21 06:06 01/29/21 06:06 Labs: Abnormal Lab Results - Last 24 Hours (Table) 01/28/21 01/28/21 01/29/21 Range/Units 17:49 20:18 06:06 RBC 2.80 L (3.80-5.40) m/uL Hgb 8.6 L (11.4-16.0) gm/dL Hct 27.1 L (34.0-46.0) % Lymphocytes # 0.5 L (1.0-4.8) k/uL PT (9.0-12.0) sec INR (<1.2) Sodium (137-145) mmol/L BUN (7-17) mg/dL Creatinine (0.52-1.04) mg/dL Glucose (74-99) mg/dL POC Glucose (mg/dL) 124 H 218 H (75-99) mg/dL 01/29/21 01/29/21 01/29/21 Range/Units 06:06 06:06 07:03 RBC (3.80-5.40) m/uL Hgb (11.4-16.0) gm/dL Hct (34.0-46.0) % Lymphocytes # (1.0-4.8) k/uL PT 29.5 H (9.0-12.0) sec INR 3.1 H (<1.2) Sodium 135 L (137-145) mmol/L BUN 75 H (7-17) mg/dL Creatinine 3.43 H (0.52-1.04) mg/dL Glucose 166 H (74-99) mg/dL POC Glucose (mg/dL) 179 H (75-99) mg/dL 01/29/21 01/29/21 Range/Units 11:22 16:57 RBC (3.80-5.40) m/uL Hgb (11.4-16.0) gm/dL Hct (34.0-46.0) % Lymphocytes # (1.0-4.8) k/uL PT (9.0-12.0) sec INR (<1.2) Sodium (137-145) mmol/L BUN (7-17) mg/dL Creatinine (0.52-1.04) mg/dL Glucose (74-99) mg/dL POC Glucose (mg/dL) 241 H 220 H (75-99) mg/dL Microbiology - Last 24 Hours (Table) 01/27/21 17:45 Blood Culture - Preliminary Blood No Growth after 24 hours 01/27/21 17:29 Blood Culture - Preliminary Blood No Growth after 24 hours Assessment and Plan Plan: Assessment: #1. Acute exacerbation of COPD, no evidence of pneumonia on the chest x-ray and patient tested negative for COVID-19 #2. Acute kidney injury related to decreased oral intake, and dehydration #3. Chronic kidney disease stage III #4. History of lungs CTA status post lobectomy #5. History of COPD #6. Chronic A. fib Plan: Continue oral antibiotics, continue IV steroids and breathing treatments, follow-up chest x-ray tomorrow, wean FiO2 today's labs have been noted, and there is worsening of patient's renal function, nephrology is following, no acute events overnight, no fever or chills. Still feels short of breath. Continue to follow her clinical course and make further recommendations I performed a history & physical examination of the patient and discussed their management with my nurse practitioner, Rachele Bradshaw. I reviewed the nurse practitioner's note and agree with the documented findings and plan of care. Lung sounds are positive for bibasilar rales The findings and the impression was discussed with the patient. I attest to the documentation by the nurse practitioner. Time with Patient: Less than 30
[2021-01-29] MEDS: INSULIN ASPART (NovoLOG) 100 UNIT/ML VIAL SQ SCH ×2 (18:08→21:37)
[2021-01-29 19:47] LABS: Hemoglobin A1C 5.2 % (4.0-6.0)
[2021-01-29 20:18] LABS: Glucose,Whole Blood 202 mg/dL (75-99)
[2021-01-29] MEDS: HYDROcodone/APAP 7.5-325MG 1 EACH TAB PO SCH (21:35)
[2021-01-30] MEDS: methylPREDNISolone SOD SUCCI 125 MG/2 ML VIAL IV SCH ×5 (00:51→23:01)
[2021-01-30] MEDS: SODIUM CHLORIDE 0.9% 1,000 ML IV SCH ×2 (04:41→16:16)
[2021-01-30 07:05] LABS: INR 3.1 (<1.2); Prothrombin Time 29.8 sec (9.0-12.0)
[2021-01-30 07:33] LABS: Glucose,Whole Blood 166 mg/dL (75-99)
[2021-01-30] MEDS: IPRATROPIUM-ALBUTEROL 3 ML NEB INHALATION SCH ×4 (07:40→20:04)
[2021-01-30] MEDS: BUDESONIDE 1 MG/2 ML NEBU INHALATION SCH ×2 (07:40→20:04)
[2021-01-30] MEDS: FORMOTEROL FUMARATE 20 MCG/2 ML NEBU INHALATION SCH ×2 (07:54→20:04)
[2021-01-30] MEDS: INSULIN ASPART (NovoLOG) 100 UNIT/ML VIAL SQ SCH ×4 (08:15→21:11)
[2021-01-30] MEDS: VIT A,C & E-LUTEIN-MINERALS 1 EACH TAB PO SCH (08:17)
[2021-01-30] MEDS: FERROUS SULFATE 325 MG TAB PO SCH (08:17)
[2021-01-30] MEDS: LOSARTAN 25 MG TAB PO SCH (08:17)
[2021-01-30] MEDS: CEFDINIR 300 MG CAP PO SCH ×2 (08:17→21:10)
[2021-01-30 10:34] LABS: Basophils % (A) 0 %; Eosinophils % (A) 0 %; HCT 25.8 % (34.0-46.0); HGB 8.2 gm/dL (11.4-16.0); Hypochromasia Slight; Lymphocytes # (A) 0.5 k/uL (1.0-4.8); Lymphocytes % (A) 4 %; MCH 30.7 pg (25.0-35.0); MCHC 31.6 g/dL (31.0-37.0); MCV 97.2 fL (80.0-100.0); Mean Platelet Volume 8.4; Monocytes # (A) 0.5 k/uL (0-1.0); Monocytes % (A) 4 %; Neutrophils # (A) 10.6 k/uL (1.3-7.7); Neutrophils % (A) 91 %; Platelet Count 355 k/uL (150-450); RBC 2.66 m/uL (3.80-5.40); RDW 14.7 % (11.5-15.5); WBC 11.7 k/uL (3.8-10.6)
[2021-01-30 10:44] LABS: African American GFR (CKD) 12 (>60 ml/min/1.73 sqM); Anion Gap 6 mmol/L; Blood Urea Nitrogen 85 mg/dL (7-17); Carbon Dioxide 23 mmol/L (22-30); Chloride 105 mmol/L (98-107); Glucose 142 mg/dL (74-99); Non-African American GFR(CKD) 10 (>60 ml/min/1.73 sqM); Potassium 5.1 mmol/L (3.5-5.1); Sodium 134 mmol/L (137-145)
[2021-01-30 11:44] LABS: Glucose,Whole Blood 203 mg/dL (75-99)
--- NOTE | 2021-01-30 11:53 | P.PN ---
Subjective Progress Note Date: 01/30/21 Principal diagnosis: COPD exacerbation 80-year-old female, well-known to our service. The patient has history of COPD, lung cancer. Currently, the patient comes into the emergency room, on January 27, complaining of increasing shortness of breath, chest congestion, coughing, and wheezing. She denied any chest pain or pressure. She denied any fever or chills. The patient denied abdominal pain, nausea, vomiting, diarrhea, and genitourinary complaints. He was seen in the ER, and admitted with a diagnosis of COPD exacerbation, and mental status changes. Chest x-ray is positive for some chronic changes but nothing acute. In April 2019, she was diagnosed with non-small cell lung cancer, squamous cell type. She was last in the hospital in September,. White count 12.6, hemoglobin 9.1, hematocrit 28.0, and platelet count was 363,000. PT 21.6, INR 2.2, and PTT is 35.4. Sodium 133, potassium 4.9, chlorides 101, CO2 26, anion gap 6, BUN 62, creatinine 2.82. Coronavirus testing was negative. She is currently on 4 L nasal cannula, and getting saline at 75 mL an hour. On 01/30/2020 the patient is seen in follow-up on medical floor, she is sitting up in the chair, appears to be in no acute distress, she is on 4 L of oxygen, she is awake and alert, oriented 3, still complaining of shortness of breath especially with exertion, but appears to be in no respiratory distress. Current pulse ox on 4 L of oxygen is 96%, she's been afebrile, hemodynamically she s table, her admission chest x-ray has been reviewed showing chronic changes with no new or worsened acute cardiopulmonary process. Today's labs show no evidence of leukocytosis, white blood cell count is 6.5, hemoglobin is 8.6, INR today is 3.1, electrolytes were unremarkable, BUN was 75, creatinine was 3.4, and her renal function has worsened since admission, the patient remains on IV hydration with 0.9 normal saline at rate of 75 ML per hour, she remains on oral antibiotics in the form of Omnicef, she did bring treatments and IV steroids for acute exacerbation of COPD The patient is seen today 01/31/2020 in follow-up on the regular medical floor. She is currently sitting up in bed. Awake and alert in no acute distress. She is doing a bit better today compared to yesterday. She is on 4 L/m per nasal cannula to maintain O2 saturation in the 90s. Blood cultures reveal no growth. Blood glucose 203. Continued on DuoNeb inhalations, Pulmicort and Perforomist inhalations, IV Solu-Medrol. Empiric antibiotics in the form of Omnicef. Anticoagulated with warfarin. Objective - Vital Signs Vital signs: Vital Signs Temp 97.9 F 01/30/21 08:30 Pulse 88 01/30/21 11:32 Resp 16 01/30/21 11:32 BP 114/67 01/30/21 08:30 Pulse Ox 97 01/30/21 08:30 Intake & Output 01/29/21 01/30/21 01/30/21 18:59 06:59 18:59 Intake Total 180 1100 Balance 180 1100 Intake: Intake, IV Titration 900 Amount Sodium Chloride 0.9% 1, 900 000 ml @ 75 mls/hr IV . [id number] [facility] Rx#:[id number] Oral 180 200 Other: Voiding Method Bedside Commode Bedside Commode Bedside Commode # Voids 3 3 1 # Bowel Movements 1 - Exam GENERAL EXAM: Alert, 80-year-old female patient, on 4 L nasal cannula, comfortable in no apparent distress. HEAD: Normocephalic. EYES: Normal reaction of pupils, equal size. NOSE: Clear with pink turbinates. THROAT: No erythema or exudates. NECK: No masses, no JVD. CHEST: No chest wall deformity. LUNGS: Equal air entry with faint end extremities, diminished. CVS: S1 and S2 normal with no audible murmur, regular rhythm. ABDOMEN: No hepatosplenomegaly, normal bowel sounds, no guarding or rigidity. SPINE: No scoliosis or deformity SKIN: No rashes CENTRAL NERVOUS SYSTEM: No focal deficits, tone is normal in all 4 extremities. EXTREMITIES: There is no peripheral edema. No clubbing, no cyanosis. Peripheral pulses are intact. - Labs CBC & Chem 7: 01/30/21 06:11 01/30/21 06:11 Labs: Abnormal Lab Results - Last 24 Hours (Table) 01/29/21 01/29/21 01/30/21 Range/Units 16:57 20:15 06:11 WBC 11.7 H (3.8-10.6) k/uL RBC 2.66 L (3.80-5.40) m/uL Hgb 8.2 L (11.4-16.0) gm/dL Hct 25.8 L (34.0-46.0) % Neutrophils # 10.6 H (1.3-7.7) k/uL Lymphocytes # 0.5 L (1.0-4.8) k/uL PT (9.0-12.0) sec INR (<1.2) Sodium (137-145) mmol/L BUN (7-17) mg/dL Creatinine (0.52-1.04) mg/dL Glucose (74-99) mg/dL POC Glucose (mg/dL) 220 H 202 H (75-99) mg/dL 01/30/21 01/30/21 01/30/21 Range/Units 06:11 06:16 07:28 WBC (3.8-10.6) k/uL RBC (3.80-5.40) m/uL Hgb (11.4-16.0) gm/dL Hct (34.0-46.0) % Neutrophils # (1.3-7.7) k/uL Lymphocytes # (1.0-4.8) k/uL PT 29.8 H (9.0-12.0) sec INR 3.1 H (<1.2) Sodium 134 L (137-145) mmol/L BUN 85 H (7-17) mg/dL Creatinine 3.82 H (0.52-1.04) mg/dL Glucose 142 H (74-99) mg/dL POC Glucose (mg/dL) 166 H (75-99) mg/dL 01/30/21 Range/Units 11:42 WBC (3.8-10.6) k/uL RBC (3.80-5.40) m/uL Hgb (11.4-16.0) gm/dL Hct (34.0-46.0) % Neutrophils # (1.3-7.7) k/uL Lymphocytes # (1.0-4.8) k/uL PT (9.0-12.0) sec INR (<1.2) Sodium (137-145) mmol/L BUN (7-17) mg/dL Creatinine (0.52-1.04) mg/dL Glucose (74-99) mg/dL POC Glucose (mg/dL) 203 H (75-99) mg/dL Microbiology - Last 24 Hours (Table) 01/27/21 17:45 Blood Culture - Preliminary Blood No Growth after 48 hours 01/27/21 17:29 Blood Culture - Preliminary Blood No Growth after 48 hours Assessment and Plan Assessment: 1 Acute exacerbation of COPD, no evidence of pneumonia on the chest x-ray and patient tested negative for COVID-19 2 Acute kidney injury related to decreased oral intake, and dehydration 3 Chronic kidney disease stage III 4 History of lungs CTA status post lobectomy 5 History of COPD 6 Chronic A. fib Plan: The patient was seen and evaluated by Dr. Petersen Continue the current treatment plan Probable discharge in the a.m. We'll continue to follow I, the cosigning physician, performed a history & physical examination of the patient. Lungs sounds with faint end expiratory wheeze. Maintaining good O2 saturations in the 90s on 4 L/m per nasal cannula I discussed the assessment and plan of care with my nurse practitioner, Renetta Chambers. I attest to the above note as dictated by her.
[2021-01-30] MEDS: ACETAMINOPHEN TAB 325 MG TAB PO PRN (14:10)
--- NOTE | 2021-01-30 16:00 | P.PN ---
Subjective Progress Note Date: 01/30/21 Principal diagnosis: 80-year-old female is seen because of acute kidney injury from decreased intake as well as from possibly COPD. She was hydrated with normal saline at 75 an janice r and Lasix was on hold. This morning she is feeling much better although remained short of breath. No nausea vomiting appetite is fair Denies fever chills. She does admit to some dizziness when she stands up. In spite of the fluid though her creatinine has gone up from 2.8 to milligrams, to 3.43 mg, to 3.82. Vital signs are stable. Urine output is not documented - History of Present Illness This is a 80-year-old female seen in consultation because of acute kidney injury and chronic kidney disease. Her creatinine was 2.8 on admission 2 days ago, went up to 3.43 today. While signs have been unremarkable blood pressure is well controlled in the 110s to 120 range She is known with COPD atrial fibrillation, small cell lung cancer, underwent resection right lower lobe on 05/01/2019 stent graft in 2015. Skin because of worsening shortness of breath She is known with chronic kidney disease with a baseline creatinine of about 2 dated 09/26/2020. Her echocardiogram recently showed a 55-60% ejection fraction. She was hospitalized here in September 2020 with pneumonia. Patient denies any nausea vomiting does feel dizzy sometimes when she stands up. No history of nausea vomiting diarrhea. No fever chills. Previous workup has shown ultrasound 10.3 and 8.57 kidney on 10/28/2020 and the recent computed tomography scan on 01/26/2021 showed moderate to advanced emphysematous changes with parenchymal fibrotic changes in the right mid to lower lung zones where she had prior neoplasm Objective - Vital Signs Vital signs: Vital Signs Temp 97.9 F 01/30/21 12:30 Pulse 88 01/30/21 15:54 Resp 16 01/30/21 15:54 BP 118/73 01/30/21 12:30 Pulse Ox 95 01/30/21 12:30 Intake & Output 01/29/21 01/30/21 01/30/21 18:59 06:59 18:59 Intake Total 180 1100 Balance 180 1100 Intake: Intake, IV Titration 900 Amount Sodium Chloride 0.9% 1, 900 000 ml @ 75 mls/hr IV . [id number] [facility] Rx#:[id number] Oral 180 200 Other: Voiding Method Bedside Commode Bedside Commode Bedside Commode # Voids 3 3 1 # Bowel Movements 1 On examination is awake alert oriented comfortable HEENT exam no JVP neck is supple no facial asymmetry Lungs are clear with an occasional coarse crackle at bases and very rarely sees and expiration fairly good air entry bilaterally. Her sounds are unremarkable for any murmur rub gallop she has atrial fibrillation Abdomen soft nontender Extremity exam trace edema Neurologically awake alert oriented - Labs CBC & Chem 7: 01/30/21 06:11 01/30/21 06:11 Labs: Abnormal Lab Results - Last 24 Hours (Table) 01/29/21 01/29/21 01/30/21 Range/Units 16:57 20:15 06:11 WBC 11.7 H (3.8-10.6) k/uL RBC 2.66 L (3.80-5.40) m/uL Hgb 8.2 L (11.4-16.0) gm/dL Hct 25.8 L (34.0-46.0) % Neutrophils # 10.6 H (1.3-7.7) k/uL Lymphocytes # 0.5 L (1.0-4.8) k/uL PT (9.0-12.0) sec INR (<1.2) Sodium (137-145) mmol/L BUN (7-17) mg/dL Creatinine (0.52-1.04) mg/dL Glucose (74-99) mg/dL POC Glucose (mg/dL) 220 H 202 H (75-99) mg/dL 01/30/21 01/30/21 01/30/21 Range/Units 06:11 06:16 07:28 WBC (3.8-10.6) k/uL RBC (3.80-5.40) m/uL Hgb (11.4-16.0) gm/dL Hct (34.0-46.0) % Neutrophils # (1.3-7.7) k/uL Lymphocytes # (1.0-4.8) k/uL PT 29.8 H (9.0-12.0) sec INR 3.1 H (<1.2) Sodium 134 L (137-145) mmol/L BUN 85 H (7-17) mg/dL Creatinine 3.82 H (0.52-1.04) mg/dL Glucose 142 H (74-99) mg/dL POC Glucose (mg/dL) 166 H (75-99) mg/dL 01/30/21 Range/Units 11:42 WBC (3.8-10.6) k/uL RBC (3.80-5.40) m/uL Hgb (11.4-16.0) gm/dL Hct (34.0-46.0) % Neutrophils # (1.3-7.7) k/uL Lymphocytes # (1.0-4.8) k/uL PT (9.0-12.0) sec INR (<1.2) Sodium (137-145) mmol/L BUN (7-17) mg/dL Creatinine (0.52-1.04) mg/dL Glucose (74-99) mg/dL POC Glucose (mg/dL) 203 H (75-99) mg/dL Microbiology - Last 24 Hours (Table) 01/27/21 17:45 Blood Culture - Preliminary Blood No Growth after 48 hours 01/27/21 17:29 Blood Culture - Preliminary Blood No Growth after 48 hours Assessment and Plan Plan: Impression 1. Acute kidney injury likely from volume depletion from decreased intake. An element of prerenal from COPD his possibility. Creatinine continues to worsen she has therefore an element of ATN. Urine analysis benign. Possibility of other diagnoses needs to be considered if creatinine does not improve by tomorrow, such as acute interstitial nephritis. Check uric acid. Calcium is normal 2. Chronic kidney disease stage III nephrosclerosis with possible renovascular disease unequal kidney size 8.5 cm left and 10.37 right kidney dated 10/28/2020. 3 admitted with shortness of breath COPD exacerbation improving 4. History of lungs CTA 2019 status post resection 5. History of some For stent graft I'm not sure where it is 6. COPD 7. Atrial fibrillation and Recommendation 1. Check uric acid 2. Continue IV fluids, and 75 mL of normal saline per hour. 3. Hold Lasix for the above reason 4. Check bladder scan. 5. For her creatinine does not improve we will consider other diagnoses. Thank you for this consultation and we'll continue to follow closely
[2021-01-30 16:34] LABS: Glucose,Whole Blood 234 mg/dL (75-99)
[2021-01-30] MEDS: WARFARIN 2 MG TAB PO SCH (16:36)
[2021-01-30] MEDS: ALPRAZolam 0.25 MG TAB PO PRN (16:36)
--- NOTE | 2021-01-30 17:45 | PN ---
PROGRESS NOTE DATE OF SERVICE: 01/30/2021 INTERVAL HISTORY: This 80-year-old woman was admitted with COPD exacerbation and also had renal failure. Patient closely monitored. No chest pain. No palpitations. No fever. PHYSICAL EXAMINATION: GENERAL: Patient is alert and oriented times three. VITAL SIGNS: Pulse 96, blood pressure 180/73, respirations 16, temperature 97.9, pulse ox 94% on 2 liters. HEENT: Conjunctivae normal. NECK: No jugular venous distention. No carotid bruits. RESPIRATORY: Breath sounds diminished at the bases. A few scattered rhonchi. HEART: S1 and S2, muffled. ABDOMEN: Soft, no tenderness. No masses palpable. EXTREMITIES: No edema, no swelling. NERVOUS: No focal deficits. LAB STUDIES: WBC 11, hemoglobin is 8.2, creatinine 3.8. ASSESSMENT: 1. Chronic obstructive pulmonary disease acute exacerbation with possible acute purulent tracheobronchitis with acute hypoxic respiratory failure present on admission. 2. Increased WBC. 3. Acute renal failure with prerenal acute tubular necrosis. 4. Chronic kidney disease stage 3, baseline possibly. 5. Change in mental status acute metabolic encephalopathy multifactorial. 6. Anemia, normocytic anemia of chronic disease. 7. Hyponatremia. 8. Dehydration, present on admission. 9. Hypercalcemia, present on admission. 10.History of recent newly diagnosed lung cancer, unknown treatment. 11.History of atrial fibrillation, chronic. 12.History of chronic obstructive pulmonary disease. 13.History of DVT. 14.Hypertension. 15.Hyperlipidemia. 16.History of degenerative joint disease. 17.History of hypothyroidism. 18.NO CODE, NO CPR, NO VENT. RECOMMENDATIONS AND DISCUSSION: Continue current medications, continue with monitoring and symptomatic treatment. Repeat labs. I would recommend PT OT evaluation. Otherwise continue to monitor. Prognosis guarded. Further recommendations to follow. MMODL / IJN: [id number] /
[2021-01-30 17:59] LABS: ALT 15 U/L (4-34); AST 26 U/L (14-36); African American GFR (CKD) 13 (>60 ml/min/1.73 sqM); Albumin/Globulin Ratio 0.9; Alkaline Phosphatase 56 U/L (38-126); Anion Gap 11 mmol/L; Blood Urea Nitrogen 91 mg/dL (7-17); Calcium 9.9 mg/dL (8.4-10.2); Carbon Dioxide 18 mmol/L (22-30); Chloride 105 mmol/L (98-107); Globulin 3.4 g/dL; Glucose 166 mg/dL (74-99); Non-African American GFR(CKD) 12 (>60 ml/min/1.73 sqM); Sodium 134 mmol/L (137-145); Total Bilirubin 0.5 mg/dL (0.2-1.3); Total Protein 6.4 g/dL (6.3-8.2); Uric Acid 7.8 mg/dL (3.7-7.4)
[2021-01-30 18:01] LABS: Potassium 5.1 mmol/L (3.5-5.1)
[2021-01-30 21:07] LABS: Glucose,Whole Blood 208 mg/dL (75-99)
[2021-01-30] MEDS: HYDROcodone/APAP 7.5-325MG 1 EACH TAB PO SCH (21:11)
[2021-01-31] MEDS: methylPREDNISolone SOD SUCCI 125 MG/2 ML VIAL IV SCH ×4 (05:16→23:39)
[2021-01-31] MEDS: SODIUM CHLORIDE 0.9% 1,000 ML IV SCH ×2 (05:18→17:27)
[2021-01-31 07:08] LABS: Glucose,Whole Blood 159 mg/dL (75-99)
[2021-01-31 07:16] LABS: Basophils % (A) 0 %; Eosinophils % (A) 0 %; HCT 25.3 % (34.0-46.0); HGB 8.1 gm/dL (11.4-16.0); Hypochromasia Slight; Lymphocytes # (A) 0.4 k/uL (1.0-4.8); Lymphocytes % (A) 4 %; MCV 96.8 fL (80.0-100.0); Mean Platelet Volume 7.7; Monocytes # (A) 0.3 k/uL (0-1.0); Monocytes % (A) 3 %; Neutrophils # (A) 9.4 k/uL (1.3-7.7); Neutrophils % (A) 92 %; Platelet Count 355 k/uL (150-450); RBC 2.61 m/uL (3.80-5.40); RDW 14.8 % (11.5-15.5); WBC 10.2 k/uL (3.8-10.6)
[2021-01-31] MEDS: FORMOTEROL FUMARATE 20 MCG/2 ML NEBU INHALATION SCH ×2 (07:17→20:03)
[2021-01-31] MEDS: BUDESONIDE 1 MG/2 ML NEBU INHALATION SCH ×2 (07:17→20:04)
[2021-01-31] MEDS: IPRATROPIUM-ALBUTEROL 3 ML NEB INHALATION SCH ×4 (07:17→20:04)
[2021-01-31 07:23] LABS: INR 3.2 (<1.2); Prothrombin Time 30.4 sec (9.0-12.0)
[2021-01-31] MEDS: SENNOSIDES 8.6 MG TAB PO SCH (08:47)
[2021-01-31] MEDS: FERROUS SULFATE 325 MG TAB PO SCH (08:47)
[2021-01-31] MEDS: CEFDINIR 300 MG CAP PO SCH (08:47)
[2021-01-31] MEDS: LOSARTAN 25 MG TAB PO SCH (08:47)
[2021-01-31] MEDS: VIT A,C & E-LUTEIN-MINERALS 1 EACH TAB PO SCH (08:48)
[2021-01-31] MEDS: INSULIN ASPART (NovoLOG) 100 UNIT/ML VIAL SQ SCH ×4 (08:48→20:37)
--- NOTE | 2021-01-31 10:10 | P.PN ---
Subjective Patient is seen in follow-up for acute kidney injury on chronic kidney disease. Appetite isn't too good. No chest pain or shortness of breath. No edema. Has been voiding. Hemodynamically stable. Vital signs are stable. General: The patient appeared well nourished and normally developed. HEENT: No JVD. LUNGS: Breath sounds decreased. HEART: Rate and Rhythm are regular. ABDOMEN: Soft, nontender. EXTREMITITES: No edema. Objective - Vital Signs Vital signs: Vital Signs Temp 98.5 F 01/30/21 19:50 Pulse 92 01/31/21 07:47 Resp 22 01/31/21 05:00 BP 112/66 01/31/21 05:00 Pulse Ox 96 01/31/21 05:00 Intake & Output 01/30/21 01/31/21 01/31/21 18:59 06:59 18:59 Intake Total 240 100 Balance 240 100 Intake: Oral 240 100 Other: Voiding Method Bedside Commode Bedside Commode # Voids 3 2 - Labs CBC & Chem 7: 01/31/21 06:17 01/30/21 17:38 Labs: Abnormal Lab Results - Last 24 Hours (Table) 01/30/21 01/30/21 01/30/21 Range/Units 06:11 06:11 11:42 WBC 11.7 H (3.8-10.6) k/uL RBC 2.66 L (3.80-5.40) m/uL Hgb 8.2 L (11.4-16.0) gm/dL Hct 25.8 L (34.0-46.0) % Neutrophils # 10.6 H (1.3-7.7) k/uL Lymphocytes # 0.5 L (1.0-4.8) k/uL PT (9.0-12.0) sec INR (<1.2) Sodium 134 L (137-145) mmol/L Carbon Dioxide (22-30) mmol/L BUN 85 H (7-17) mg/dL Creatinine 3.82 H (0.52-1.04) mg/dL Glucose 142 H (74-99) mg/dL POC Glucose (mg/dL) 203 H (75-99) mg/dL Uric Acid (3.7-7.4) mg/dL Albumin (3.5-5.0) g/dL 01/30/21 01/30/21 01/30/21 Range/Units 16:33 17:38 21:05 WBC (3.8-10.6) k/uL RBC (3.80-5.40) m/uL Hgb (11.4-16.0) gm/dL Hct (34.0-46.0) % Neutrophils # (1.3-7.7) k/uL Lymphocytes # (1.0-4.8) k/uL PT (9.0-12.0) sec INR (<1.2) Sodium 134 L (137-145) mmol/L Carbon Dioxide 18 L (22-30) mmol/L BUN 91 H (7-17) mg/dL Creatinine 3.52 H (0.52-1.04) mg/dL Glucose 166 H (74-99) mg/dL POC Glucose (mg/dL) 234 H 208 H (75-99) mg/dL Uric Acid 7.8 H (3.7-7.4) mg/dL Albumin 3.0 L (3.5-5.0) g/dL 01/31/21 01/31/21 01/31/21 Range/Units 06:17 06:17 07:04 WBC (3.8-10.6) k/uL RBC 2.61 L (3.80-5.40) m/uL Hgb 8.1 L (11.4-16.0) gm/dL Hct 25.3 L (34.0-46.0) % Neutrophils # 9.4 H (1.3-7.7) k/uL Lymphocytes # 0.4 L (1.0-4.8) k/uL PT 30.4 H (9.0-12.0) sec INR 3.2 H (<1.2) Sodium (137-145) mmol/L Carbon Dioxide (22-30) mmol/L BUN (7-17) mg/dL Creatinine (0.52-1.04) mg/dL Glucose (74-99) mg/dL POC Glucose (mg/dL) 159 H (75-99) mg/dL Uric Acid (3.7-7.4) mg/dL Albumin (3.5-5.0) g/dL Microbiology - Last 24 Hours (Table) 01/27/21 17:29 Blood Culture - Preliminary Blood No Growth after 72 hours 01/27/21 17:45 Blood Culture - Preliminary Blood No Growth after 72 hours Assessment and Plan Plan: Assessment: 1. Acute kidney injury secondary to ATN secondary to hypovolemia and poor intake. Creatinine peaked at 3.8 to this admission. 3.5 to as of yesterday evening. Labs from today are pending. 2. Chronic kidney disease stage IV with baseline creatinine in the range of 2- 2.3 secondary to nephrosclerosis. 3. Chronic kidney disease mineral bone disease maintained on calcitriol. 4. COPD exacerbation. Plan: Maintain IV fluids. Hold Cozaar. Avoid nephrotoxins. Encourage oral intake. Monitor renal function. Morning labs pending.
[2021-01-31 11:25] LABS: African American GFR (CKD) 13.8 (60.0-200.0); Anion Gap 5.7 mmol/L (4.00-12.00); BUN/Creat Ratio 26.47 Ratio (12.00-20.00); Calcium 9.7 mg/dL (8.7-10.3); Carbon Dioxide 22.3 mmol/L (21.6-31.8); Non-African American GFR(CKD) 11.9 (60.0-200.0); Potassium 5.1 mmol/L (3.5-5.5)
[2021-01-31 11:37] LABS: Glucose,Whole Blood 202 mg/dL (75-99)
[2021-01-31] MEDS: ACETAMINOPHEN TAB 325 MG TAB PO PRN ×2 (12:47→17:27)
--- NOTE | 2021-01-31 15:28 | P.PN ---
Subjective Progress Note Date: 01/31/21 Principal diagnosis: Acute exacerbation of COPD 80-year-old female, well-known to our service. The patient has history of COPD, lung cancer. Currently, the patient comes into the emergency room, on January 27, complaining of increasing shortness of breath, chest congestion, coughing, and wheezing. She denied any chest pain or pressure. She denied any fever or chills. The patient denied abdominal pain, nausea, vomiting, diarrhea, and genitourinary complaints. He was seen in the ER, and admitted with a diagnosis of COPD exacerbation, and mental status changes. Chest x-ray is positive for some chronic changes but nothing acute. In April 2019, she was diagnosed with non-small cell lung cancer, squamous cell type. She was last in the hospital in September,. White count 12.6, hemoglobin 9.1, hematocrit 28.0, and platelet count was 363,000. PT 21.6, INR 2.2, and PTT is 35.4. Sodium 133, potassium 4.9, chlorides 101, CO2 26, anion gap 6, BUN 62, creatinine 2.82. Coronavirus testing was negative. She is currently on 4 L nasal cannula, and getting saline at 75 mL an hour. On 01/30/2020 the patient is seen in follow-up on medical floor, she is sitting up in the chair, appears to be in no acute distress, she is on 4 L of oxygen, she is awake and alert, oriented 3, still complaining of shortness of breath especially with exertion, but appears to be in no respiratory distress. Current pulse ox on 4 L of oxygen is 96%, she's been afebrile, hemodynamically she stable, her admission chest x-ray has been reviewed showing chronic changes with no new or worsened acute cardiopulmonary process. Today's labs show no evidence of leukocytosis, white blood cell count is 6.5, hemoglobin is 8.6, INR today is 3.1, electrolytes were unremarkable, BUN was 75, creatinine was 3.4, and her renal function has worsened since admission, the patient remains on IV hydration with 0.9 normal saline at rate of 75 ML per hour, she remains on oral antibiotics in the form of Omnicef, she did bring treatments and IV steroids for acute exacerbation of COPD On 01/31/2021 patient seen in follow-up on medical surgical floor. Breathing very comfortably, she is up in the chair, looks very stable, 2 L of oxygen, off oxygen 98%, this can probably be weaned off completely, no fever or chills, hemodynamically patient is stable, her lung sounds are clear on today's exam, 0 .9 normal saline is infusing at 75 ML per hour, no other drips. Today's labs have been reviewed, white blood cell count is 10.2, hemoglobin is 8.1, INR today is 3.2, electrolytes were within normal limits, B1 is 90 creatinine is 3.4, renal profile slightly improved. No acute events overnight, no nausea vomiting or diarrhea. Objective - Vital Signs Vital signs: Vital Signs Temp 98.2 F 01/31/21 12:16 Pulse 88 01/31/21 15:04 Resp 19 01/31/21 12:16 BP 123/74 01/31/21 12:16 Pulse Ox 98 01/31/21 12:16 Intake & Output 01/30/21 01/31/21 01/31/21 18:59 06:59 18:59 Intake Total 240 100 Balance 240 100 Intake: Oral 240 100 Other: Voiding Method Bedside Commode Bedside Commode # Voids 3 2 1 # Bowel Movements 1 - Exam GENERAL EXAM: Alert, very pleasant, 80-year-old white female, on 2 L of oxygen and the pulse ox of 98% comfortable in no apparent distress. HEAD: Normocephalic/atraumatic. EYES: Normal reaction of pupils, equal size. Conjunctiva pink, sclera white. NOSE: Clear with pink turbinates. THROAT: No erythema or exudates. NECK: No masses, no JVD, no thyroid enlargement, no adenopathy. CHEST: No chest wall deformity. Symmetrical expansion. LUNGS: Equal air entry with no crackles, wheeze, rhonchi or dullness. CVS: Regular rate and rhythm, normal S1 and S2, no gallops, no murmurs, no rubs ABDOMEN: Soft, nontender. No hepatosplenomegaly, normal bowel sounds, no guarding or rigidity. EXTREMITIES: No clubbing, no edema, no cyanosis, 2+ pulses and upper and lower extremities. MUSCULOSKELETAL: Muscle strength and tone normal. SPINE: No scoliosis or deformity SKIN: No rashes CENTRAL NERVOUS SYSTEM: Alert and oriented -3. No focal deficits, tone is normal in all 4 extremities. PSYCHIATRIC: Alert and oriented -3. Appropriate affect. Intact judgment and insight. - Labs CBC & Chem 7: 01/31/21 06:17 01/31/21 06:17 Labs: Abnormal Lab Results - Last 24 Hours (Table) 01/30/21 01/30/21 01/30/21 Range/Units 16:33 17:38 21:05 RBC (3.80-5.40) m/uL Hgb (11.4-16.0) gm/dL Hct (34.0-46.0) % Neutrophils # (1.3-7.7) k/uL Lymphocytes # (1.0-4.8) k/uL PT (9.0-12.0) sec INR (<1.2) Sodium 134 L (137-145) mmol/L Carbon Dioxide 18 L (22-30) mmol/L BUN 91 H (7-17) mg/dL Creatinine 3.52 H (0.52-1.04) mg/dL Est GFR (CKD-EPI)AfAm (60.0-200.0) Est GFR (CKD-EPI)NonAf (60.0-200.0) BUN/Creatinine Ratio (12.00-20.00) Ratio Glucose 166 H (74-99) mg/dL POC Glucose (mg/dL) 234 H 208 H (75-99) mg/dL Uric Acid 7.8 H (3.7-7.4) mg/dL Albumin 3.0 L (3.5-5.0) g/dL 01/31/21 01/31/21 01/31/21 Range/Units 06:17 06:17 06:17 RBC 2.61 L (3.80-5.40) m/uL Hgb 8.1 L (11.4-16.0) gm/dL Hct 25.3 L (34.0-46.0) % Neutrophils # 9.4 H (1.3-7.7) k/uL Lymphocytes # 0.4 L (1.0-4.8) k/uL PT 30.4 H (9.0-12.0) sec INR 3.2 H (<1.2) Sodium (137-145) mmol/L Carbon Dioxide (22-30) mmol/L BUN 90.0 H (7-17) mg/dL Creatinine 3.4 H (0.52-1.04) mg/dL Est GFR (CKD-EPI)AfAm 13.8 L (60.0-200.0) Est GFR (CKD-EPI)NonAf 11.9 L (60.0-200.0) BUN/Creatinine Ratio 26.47 H (12.00-20.00) Ratio Glucose 143 H (74-99) mg/dL POC Glucose (mg/dL) (75-99) mg/dL Uric Acid (3.7-7.4) mg/dL Albumin (3.5-5.0) g/dL 01/31/21 01/31/21 Range/Units 07:04 11:36 RBC (3.80-5.40) m/uL Hgb (11.4-16.0) gm/dL Hct (34.0-46.0) % Neutrophils # (1.3-7.7) k/uL Lymphocytes # (1.0-4.8) k/uL PT (9.0-12.0) sec INR (<1.2) Sodium (137-145) mmol/L Carbon Dioxide (22-30) mmol/L BUN (7-17) mg/dL Creatinine (0.52-1.04) mg/dL Est GFR (CKD-EPI)AfAm (60.0-200.0) Est GFR (CKD-EPI)NonAf (60.0-200.0) BUN/Creatinine Ratio (12.00-20.00) Ratio Glucose (74-99) mg/dL POC Glucose (mg/dL) 159 H 202 H (75-99) mg/dL Uric Acid (3.7-7.4) mg/dL Albumin (3.5-5.0) g/dL Microbiology - Last 24 Hours (Table) 01/27/21 17:29 Blood Culture - Preliminary Blood No Growth after 72 hours 01/27/21 17:45 Blood Culture - Preliminary Blood No Growth after 72 hours Assessment and Plan Plan: Assessment: #1. Acute exacerbation of COPD, no evidence of pneumonia on the chest x-ray and patient tested negative for COVID-19 #2. Acute kidney injury related to decreased oral intake, and dehydration #3. Chronic kidney disease stage III #4. History of lung CA status post lobectomy #5. History of COPD #6. Chronic A. fib Plan: Stable from pulmonary perspective, no worsening dyspnea, wean FiO2 to maintain O2 saturation at or above 90% Patient is on Coumadin for oral anticoagulation today's INR was noted Breathing has improved We will decrease the IV Solu-Medrol to 40 mg every 8 hours Continue inhalers From pulmonary perspective patient could be considered for discharge home on prednisone taper. Activity as tolerated Continue to follow I performed a history & physical examination of the patient and discussed their management with my nurse practitioner, Rachele Bradshaw. I reviewed the nurse practitioner's note and agree with the documented findings and plan of care. Lung sounds are positive for bibasilar rales The findings and the impression was discussed with the patient. I attest to the documentation by the nurse practitioner. Time with Patient: Less than 30
[2021-01-31 17:19] LABS: Glucose,Whole Blood 228 mg/dL (75-99)
[2021-01-31] MEDS: WARFARIN 0.5 MG TAB PO SCH (17:24)
--- NOTE | 2021-01-31 17:41 | PN ---
PROGRESS NOTE DATE OF SERVICE: 01/31/2021 This 80-year-old woman who was admitted with COPD, acute exacerbation, and possible acute purulent tracheobronchitis, also had some renal failure which is actually worsening. The most recent creatinine done today is 3.4. The patient's INR is 3.2. PHYSICAL EXAMINATION: Alert and oriented x2. Pulse is 112, blood pressure 120/74, respiration 19, temperature 98.2, pulse ox 98% on 2 L. HEENT: Conjunctivae normal. NECK: No jugular venous distention. CARDIOVASCULAR SYSTEM: S1, S2 muffled. RESPIRATORY SYSTEM: Breath sounds diminished at the bases. A few scattered rhonchi. ABDOMEN: Soft, non-tender. NERVOUS SYSTEM: No focal deficit. LABS: Hemoglobin 8.1 and creatinine is 3.4, BUN is 90. ASSESSMENT: 1. Chronic obstructive pulmonary disease, acute exacerbation, with acute purulent tracheobronchitis with acute hypoxic respiratory failure, present on admission. 2. Increased white count. 3. Acute renal failure with prerenal acute tubular necrosis. 4. Chronic kidney disease, stage 3 baseline possibly. 5. Change in mental status, acute metabolic encephalopathy, multifactorial. 6. Anemia, normocytic anemia of chronic disease. 7. Hyponatremia. 8. Dehydration, present on admission. 9. Hypercalcemia, present on admission. 10.History of newly diagnosed lung cancer, on no treatment. 11.History of atrial fibrillation, chronic. 12.History of chronic obstructive pulmonary disease. 13.History of deep venous thrombosis. 14.Hypertension. 15.Hyperlipidemia. 16.Degenerative joint disease. 17.History of hypothyroidism. 18.NO CODE, NO CPR, NO VENT. RECOMMENDATIONS AND DISCUSSION: I recommend to continue current medications, continue with the monitoring, symptomatic treatment. Continue with IV fluids. Follow closely with multiple consultants and monitor creatinine closely. Dr. Jules is following the patient closely. The patient has possibly chronic kidney disease, stage [address] Jules. Cozaar is being held. Further recommendations to follow. MMODL / IJN: [id number] /
[2021-01-31] MEDS ORDERED: WARFARIN 1.25 MG TAB PO SCH (18:00)
[2021-01-31 20:05] LABS: Glucose,Whole Blood 201 mg/dL (75-99)
[2021-01-31] MEDS: HYDROcodone/APAP 7.5-325MG 1 EACH TAB PO SCH (20:36)
[2021-02-01] MEDS: methylPREDNISolone SOD SUCCI 125 MG/2 ML VIAL IV SCH ×4 (05:36→23:35)
[2021-02-01] MEDS: SODIUM CHLORIDE 0.9% 1,000 ML IV SCH (05:36)
--- NOTE | 2021-02-01 06:58 | XR ---
EXAMINATION TYPE: XR chest 1V portable DATE OF EXAM: 02/01/2021 CLINICAL HISTORY: Difficulty breathing progress study. TECHNIQUE: Single AP portable upright view of the chest is obtained. COMPARISON: Chest x-ray from 5 days earlier and older studies. CT chest 6 days ago. FINDINGS: Background chronic emphysematous and reticular parenchymal fibrotic changes bilaterally re demonstrated. Persistent small to tiny bilateral pleural effusions. Cardiac silhouette size stable an d mildly enlarged with atherosclerotic aorta. Metallic stent graft in the abdominal aorta is partiall y imaged. Osseous structures remain demineralized IMPRESSION: Chronic emphysematous and pulmonary fibrotic changes with mild cardiomegaly and small to tiny bilateral pleural effusions. No new infiltrate. No significant change from most recent x-ray.
[2021-02-01] MEDS: BUDESONIDE 1 MG/2 ML NEBU INHALATION SCH ×2 (07:14→20:51)
[2021-02-01] MEDS: FORMOTEROL FUMARATE 20 MCG/2 ML NEBU INHALATION SCH ×2 (07:14→20:51)
[2021-02-01] MEDS: IPRATROPIUM-ALBUTEROL 3 ML NEB INHALATION SCH ×4 (07:14→20:51)
[2021-02-01] MEDS: VIT A,C & E-LUTEIN-MINERALS 1 EACH TAB PO SCH (07:24)
[2021-02-01] MEDS: FERROUS SULFATE 325 MG TAB PO SCH (07:24)
[2021-02-01] MEDS: CEFDINIR 300 MG CAP PO SCH (07:24)
[2021-02-01] MEDS: INSULIN ASPART (NovoLOG) 100 UNIT/ML VIAL SQ SCH ×4 (07:24→19:34)
[2021-02-01] MEDS: SENNOSIDES 8.6 MG TAB PO SCH (07:24)
[2021-02-01 07:33] LABS: INR 3.2 (<1.2); Prothrombin Time 30.6 sec (9.0-12.0)
[2021-02-01 08:19] LABS: Glucose,Whole Blood 176 mg/dL (75-99)
--- NOTE | 2021-02-01 10:13 | P.PN ---
Subjective Patient is seen in follow-up for acute kidney injury on chronic kidney disease. Appetite is just fair. No chest pain or shortness of breath. No edema. Has been voiding. Hemodynamically stable. Labs pending. Vital signs are stable. General: The patient appeared well nourished and normally developed. HEENT: No JVD. LUNGS: Breath sounds decreased. HEART: Rate and Rhythm are regular. ABDOMEN: Soft, nontender. EXTREMITITES: No edema. Objective - Vital Signs Vital signs: Vital Signs Temp 97.8 F 02/01/21 05:00 Pulse 96 02/01/21 07:42 Resp 18 02/01/21 07:28 BP 127/77 02/01/21 05:00 Pulse Ox 98 02/01/21 05:00 Intake & Output 01/31/21 02/01/21 02/01/21 18:59 06:59 18:59 Intake Total 900 1340 Balance 900 1340 Intake: Intake, IV Titration 900 900 Amount Sodium Chloride 0.9% 1, 900 900 000 ml @ 75 mls/hr IV . [id number] [facility] Rx#:[id number] Oral 440 Other: Voiding Method Bedside Commode Bedside Commode Bedside Commode # Voids 1 2 # Bowel Movements 1 - Labs CBC & Chem 7: 01/31/21 06:17 01/31/21 06:17 Labs: Abnormal Lab Results - Last 24 Hours (Table) 01/31/21 01/31/21 01/31/21 Range/Units 06:17 11:36 17:09 PT (9.0-12.0) sec INR (<1.2) BUN 90.0 H (9.0-27.0) mg/dL Creatinine 3.4 H (0.6-1.5) mg/dL Est GFR (CKD-EPI)AfAm 13.8 L (60.0-200.0) Est GFR (CKD-EPI)NonAf 11.9 L (60.0-200.0) BUN/Creatinine Ratio 26.47 H (12.00-20.00) Ratio Glucose 143 H (70-110) mg/dL POC Glucose (mg/dL) 202 H 228 H (75-99) mg/dL 01/31/21 02/01/21 02/01/21 Range/Units 20:01 06:55 07:08 PT 30.6 H (9.0-12.0) sec INR 3.2 H (<1.2) BUN (9.0-27.0) mg/dL Creatinine (0.6-1.5) mg/dL Est GFR (CKD-EPI)AfAm (60.0-200.0) Est GFR (CKD-EPI)NonAf (60.0-200.0) BUN/Creatinine Ratio (12.00-20.00) Ratio Glucose (70-110) mg/dL POC Glucose (mg/dL) 201 H 176 H (75-99) mg/dL Microbiology - Last 24 Hours (Table) 01/27/21 17:45 Blood Culture - Preliminary Blood No Growth after 96 hours 01/27/21 17:29 Blood Culture - Preliminary Blood No Growth after 96 hours Assessment and Plan Plan: Assessment: 1. Acute kidney injury secondary to ATN secondary to hypovolemia and poor intake. Creatinine peaked at 3.8 to this admission -3.4 as of yesterday. Labs from today are pending. 2. Chronic kidney disease stage IV with baseline creatinine in the range of 2- 2.3 secondary to nephrosclerosis. 3. Chronic kidney disease mineral bone disease maintained on calcitriol. 4. COPD exacerbation. 5. Anemia of chronic kidney disease. Rule out iron deficiency. Plan: Maintain IV fluids - decrease rate to 50 cc/hr. Hold Cozaar. Avoid nephrotoxins. Encourage oral intake. Monitor renal function. Check iron studies.
[2021-02-01 11:23] LABS: Glucose,Whole Blood 187 mg/dL (75-99)
[2021-02-01] MEDS ORDERED: FUROSEMIDE 10 MG/ML 4 ML VIAL IV STA ×2 (11:32→20:57)
--- NOTE | 2021-02-01 11:46 | P.PN ---
Subjective Progress Note Date: 02/01/21 Principal diagnosis: Shortness of breath. 80-year-old female, well-known to our service. The patient has history of COPD, lung cancer. Currently, the patient comes into the emergency room, on January 27, complaining of increasing shortness of breath, chest congestion, coughing, and wheezing. She denied any chest pain or pressure. She denied any fever or chills. The patient denied abdominal pain, nausea, vomiting, diarrhea, and genitourinary complaints. He was seen in the ER, and admitted with a diagnosis of COPD exacerbation, and mental status changes. Chest x-ray is positive for some chronic changes but nothing acute. In April 2019, she was diagnosed with non-small cell lung cancer, squamous cell type. She was last in the hospital in September,. White count 12.6, hemoglobin 9.1, hematocrit 28.0, and platelet count was 363,000. PT 21.6, INR 2.2, and PTT is 35.4. Sodium 133, potassium 4.9, chlorides 101, CO2 26, anion gap 6, BUN 62, creatinine 2.82. Coronavirus testing was negative. She is currently on 4 L nasal cannula, and getting saline at 75 mL an hour. On 01/30/2020 the patient is seen in follow-up on medical floor, she is sitting up in the chair, appears to be in no acute distress, she is on 4 L of oxygen, she is awake and alert, oriented 3, still complaining of shortness of breath especially with exertion, but appears to be in no respiratory distress. Current pulse ox on 4 L of oxygen is 96%, she's been afebrile, hemodynamically she stable, her admission chest x-ray has been reviewed showing chronic changes with no new or worsened acute cardiopulmonary process. Today's labs show no evidence of leukocytosis, white blood cell count is 6.5, hemoglobin is 8.6, INR today is 3.1, electrolytes were unremarkable, BUN was 75, creatinine was 3.4, and her renal function has worsened since admission, the patient remains on IV hydration with 0.9 normal saline at rate of 75 ML per hour, she remains on oral antibiotics in the form of Omnicef, she did bring treatments and IV steroids for acute exacerbation of COPD On 01/31/2021 patient seen in follow-up on medical surgical floor. Breathing very comfortably, she is up in the chair, looks very stable, 2 L of oxygen, off oxygen 98%, this can probably be weaned off completely, no fever or chills, hemodynamically patient is stable, her lung sounds are clear on today's exam, 0.9 normal saline is infusing at 75 ML per hour, no other drips. Today's labs have been reviewed, white blood cell count is 10.2, hemoglobin is 8.1, INR today is 3.2, electrolytes were within normal limits, B1 is 90 creatinine is 3.4, renal profile slightly improved. No acute events overnight, no nausea vomiting or diarrhea. Progress note dated 02/01/2021. 80-year-old female with a history of COPD exacerbation, and lung cancer. Currently, the patient's feeling a bit more short of breath this morning. She is on 3 L nasal cannula. Saturations are in the low 90s. The patient denies any cough, wheezing, or phlegm production. The patient has made herself a no code. She was recently diagnosed with lung cancer, status post right lower lobectomy. It was non-small cell lung cancer, squamous cell type. She denies any fever or chills. She denies any nausea, vomiting, or diarrhea. She is hav ing some difficulty with swallowing. This has been more of a chronic problem. No new labs to report. Chest x-ray shows chronic emphysematous and pulmonary fibrotic changes, with cardiomegaly, and small bilateral pleural effusions. There is no significant change compared to an x-ray done 6 days prior. Objective - Vital Signs Vital signs: Vital Signs Temp 97.8 F 02/01/21 05:00 Pulse 88 02/01/21 10:45 Resp 18 02/01/21 07:28 BP 127/77 02/01/21 05:00 Pulse Ox 98 02/01/21 05:00 Intake & Output 01/31/21 02/01/21 02/01/21 18:59 06:59 18:59 Intake Total 900 1340 Balance 900 1340 Intake: Intake, IV Titration 900 900 Amount Sodium Chloride 0.9% 1, 900 900 000 ml @ 75 mls/hr IV . [id number] [facility] Rx#:[id number] Oral 440 Other: Voiding Method Bedside Commode Bedside Commode Bedside Commode # Voids 1 2 # Bowel Movements 1 - Exam Oriented 3, mild shortness of breath, currently on 3 L, with saturations in the low 90s. HEENT examination is grossly unremarkable. Neck supple. Full range of motion. No adenopathy thyromegaly or neck vein distention. Cardiovascular examination reveals regular rhythm rate. S1-S2 normal. No S3 or S4. No discernible murmur noted. Heart rate 92 bpm. Lungs reveal diminished breath sounds bilaterally. Scattered rhonchi and expiratory wheezes are noted. No crackles. Breath sounds are unchanged. Abdomen soft bowel sounds are heard. No masses or tenderness. Extremities are intact. No cyanosis clubbing or edema. Skin is without rash or lesion. Neurologic examination is brief but nonfocal. - Labs CBC & Chem 7: 01/31/21 06:17 01/31/21 06:17 Labs: Abnormal Lab Results - Last 24 Hours (Table) 01/31/21 01/31/21 02/01/21 Range/Units 17:09 20:01 06:55 PT 30.6 H (9.0-12.0) sec INR 3.2 H (<1.2) POC Glucose (mg/dL) 228 H 201 H (75-99) mg/dL 02/01/21 02/01/21 Range/Units 07:08 11:21 PT (9.0-12.0) sec INR (<1.2) POC Glucose (mg/dL) 176 H 187 H (75-99) mg/dL Microbiology - Last 24 Hours (Table) 01/27/21 17:45 Blood Culture - Preliminary Blood No Growth after 96 hours 01/27/21 17:29 Blood Culture - Preliminary Blood No Growth after 96 hours Assessment and Plan Assessment: Acute exacerbation of COPD. Coronavirus testing negative. History of chronic atrial fibrillation. Relatively recent diagnosis of lung cancer, 2019, squamous cell carcinoma the lung, status/post right lower lobectomy. History of hyperlipidemia. Stage III chronic kidney disease. History of hypertension. DVT, left arm, 2018. Prior history of tobacco use. Plan: Plan dated 01/28/2021. We will make sure the patient's on appropriate medications which will include albuterol sulfate and ipratropium bromide, 4 times a day and when necessary. In addition, she should get Pulmicort 1 mg, mixed with formoterol, 20 g, twice a day. In addition, the patient should get Solu-Medrol 60 mg every 6 hours. Labs x-rays a medications are all reviewed. We will continue to follow make recommendations were appropriate. Prognosis is guarded. Plan dated 02/01/2021. Currently, the patient's on appropriate medications including albuterol sulfate, ipratropium bromide, Solu-Medrol, Pulmicort, and formoterol. Additional recommendations and suggestions are forthcoming. Prognosis is guarded. We will continue to follow. The patient will need to follow with my partner post discharge. Additional recommendations and suggestions are forthcoming. Chest x-ray, today, is unchanged. Time with Patient: Less than 30
[2021-02-01 12:44] LABS: African American GFR (CKD) 13.4 (60.0-200.0); Anion Gap 10.4 mmol/L (4.00-12.00); Calcium 9.8 mg/dL (8.7-10.3); Carbon Dioxide 20.6 mmol/L (21.6-31.8); Magnesium 2.2 mg/dL (1.5-2.4); Non-African American GFR(CKD) 11.5 (60.0-200.0); Potassium 5.1 mmol/L (3.5-5.5)
[2021-02-01] MEDS: ACETAMINOPHEN TAB 325 MG TAB PO PRN (12:47)
--- NOTE | 2021-02-01 13:03 | XR ---
EXAMINATION TYPE: XR chest 1V DATE OF EXAM: 02/01/2021 CLINICAL HISTORY: Difficulty breathing progress study. TECHNIQUE: Single AP portable upright view of the chest is obtained. COMPARISON: Chest x-ray from earlier today and older studies FINDINGS: Background chronic emphysematous and reticular parenchymal fibrotic changes bilaterally re demonstrated. Persistent small to tiny bilateral pleural effusions. Cardiac silhouette size stable an d mildly enlarged with atherosclerotic aorta. Metallic stent graft in the abdominal aorta is partiall y imaged. Osseous structures remain demineralized IMPRESSION: Chronic emphysematous and pulmonary fibrotic changes with mild cardiomegaly and small to tiny bilateral pleural effusions are redemonstrated. New left basilar opacity suggests developing ate lectasis and/or infiltrate. Increasing left upper lung reticulonodular interstitial prominence raises concern for edema and/or infiltrate at this level also.
[2021-02-01 15:43] LABS: % Iron Saturation 40.72 (12.00-45.00)
--- NOTE | 2021-02-01 16:08 | PN ---
PROGRESS NOTE DATE OF SERVICE: 02/01/2021 This 80-year-old woman was admitted with COPD acute exacerbation, acute purulent tracheobronchitis, improving significantly. She is complains of some shortness of breath. No chest pain. No palpitations. No fever. The patient has some crackles and most recent chest x-ray which I reviewed personally showed some evidence of fluid overload. PAST MEDICAL HISTORY: Reviewed. PHYSICAL EXAMINATION: Patient is alert, oriented x3. Pulse is 92, blood pressure 127/77, respiration 20, temp 97.8, pulse ox 98% on 2 L. HEENT: Conjunctivae normal. CARDIOVASCULAR: S1, S2 muffled. RESPIRATORY: Breath sounds diminished at the bases. A few scattered rhonchi and crackles. ABDOMEN: Soft, nontender. LEGS: No edema, no swelling. NERVOUS SYSTEM: No focal deficits. LABS: INR 3.2. Creatinine is 3.5. ASSESSMENT: 1. Chronic obstructive pulmonary disease acute exacerbation with acute purulent tracheobronchitis with acute hypoxic respiratory failure, present on admission. 2. Increased WBC. 3. Rule out fluid overload. 4. Acute renal failure with acute prerenal acute tubular necrosis. 5. Chronic kidney disease stage 3 baseline possibly. 6. Change in mental status acute metabolic encephalopathy multifactorial. 7. Anemia, normocytic anemia of chronic disease. 8. Hyponatremia. 9. Dehydration, present on admission. 10.Hypercalcemia, present on admission. 11.History of newly diagnosed lung cancer, not on any treatment. 12.History of atrial fibrillation chronic. 13.History of chronic obstructive pulmonary disease. 14.History of deep vein thrombosis. 15.Hypertension. 16.Hyperlipidemia. 17.History of degenerative joint disease. 18.History of hypothyroidism. 19.NO CODE, NO CPR, NO VENT. RECOMMENDATIONS AND DISCUSSION: Recommend current medications, recommend symptomatic treatment. I recommend Lasix 40 mg once it is okay with Dr. Jules probably cut down the IV fluids and monitor closely. Continue with bronchodilators and IV steroids. Closely follow with Dr. Mendez. Guarded prognosis. Further recommendations to follow. See orders for details. Patient is NO CODE. MMODL / IJN: [id number] /
[2021-02-01 16:19] LABS: Ferritin 547.2 ng/mL (10.0-291.0)
[2021-02-01 17:18] LABS: Glucose,Whole Blood 187 mg/dL (75-99)
[2021-02-01] MEDS: WARFARIN 1.5 MG TAB PO SCH (19:16)
[2021-02-01 19:33] LABS: Glucose,Whole Blood 222 mg/dL (75-99)
[2021-02-01] MEDS: HYDROcodone/APAP 7.5-325MG 1 EACH TAB PO SCH (21:12)
[2021-02-02] MEDS: methylPREDNISolone SOD SUCCI 125 MG/2 ML VIAL IV SCH ×4 (05:30→23:49)
[2021-02-02 06:50] LABS: INR 3.7 (<1.2); Prothrombin Time 35.4 sec (9.0-12.0)
[2021-02-02 07:13] LABS: Glucose,Whole Blood 150 mg/dL (75-99)
--- NOTE | 2021-02-02 07:30 | XR ---
EXAMINATION TYPE: XR chest 1V DATE OF EXAM: 02/02/2021 HISTORY: Shortness of breath. COMPARISON: 6 02/01/2021 TECHNIQUE: Single view of the chest is submitted. FINDINGS: Demonstrated are scattered senescent parenchymal change. Coarse interstitial and patchy basilar infiltrates persist although there is interval improvement not ed. The heart is stable. Hilar and mediastinal structures are within normal limits. Degenerative changes are seen of the dorsal spine. IMPRESSION: 1. Coarse interstitial and patchy basilar infiltrates persist although there is interval improvement noted.
[2021-02-02] MEDS: INSULIN ASPART (NovoLOG) 100 UNIT/ML VIAL SQ SCH ×4 (07:54→20:43)
[2021-02-02] MEDS: SENNOSIDES 8.6 MG TAB PO SCH (07:55)
[2021-02-02] MEDS: VIT A,C & E-LUTEIN-MINERALS 1 EACH TAB PO SCH (07:55)
[2021-02-02] MEDS: CEFDINIR 300 MG CAP PO SCH (07:55)
[2021-02-02] MEDS: FERROUS SULFATE 325 MG TAB PO SCH (07:55)
[2021-02-02] MEDS: IPRATROPIUM-ALBUTEROL 3 ML NEB INHALATION SCH ×4 (08:13→20:40)
[2021-02-02] MEDS: FORMOTEROL FUMARATE 20 MCG/2 ML NEBU INHALATION SCH ×2 (08:13→20:40)
[2021-02-02] MEDS: BUDESONIDE 1 MG/2 ML NEBU INHALATION SCH ×2 (08:13→20:40)
[2021-02-02] MEDS ORDERED: DARBEPOETIN ALFA 40 MCG/0.4 ML SYRINGE SQ SCH (09:00)
[2021-02-02] MEDS: WARFARIN 1.5 MG TAB PO SCH (09:43)
[2021-02-02] MEDS ORDERED: FUROSEMIDE 10 MG/ML 10 ML VIAL IV STA (10:16)
--- NOTE | 2021-02-02 10:20 | P.PN ---
Subjective Patient is seen in follow-up for acute kidney injury on chronic kidney disease. Appetite is just fair. [place] more short of breath yesterday and received 2 doses of IV Lasix. Currently on 4 L nasal cannula. Hemodynamically stable. Vital signs are stable. General: The patient appeared well nourished and normally developed. HEENT: No JVD. LUNGS: Breath sounds decreased. HEART: Rate and Rhythm are regular. ABDOMEN: Soft, nontender. EXTREMITITES: No edema. Objective - Vital Signs Vital signs: Vital Signs Temp 98.6 F 02/02/21 04:59 Pulse 90 02/02/21 08:34 Resp 18 02/02/21 08:34 BP 130/76 02/02/21 04:59 Pulse Ox 99 02/02/21 08:14 Intake & Output 02/01/21 02/02/21 02/02/21 18:59 06:59 18:59 Intake Total 200 360 Output Total 500 Balance 200 -140 Weight 68 kg Intake: Oral 200 360 Output: Urine 500 Other: Voiding Method Bedside Commode Bedside Commode # Voids 1 - Labs CBC & Chem 7: 01/31/21 06:17 02/01/21 06:55 Labs: Abnormal Lab Results - Last 24 Hours (Table) 02/01/21 02/01/21 02/01/21 Range/Units 06:55 06:55 11:21 PT (9.0-12.0) sec INR (<1.2) Carbon Dioxide 20.6 L (21.6-31.8) mmol/L BUN 98.0 H (9.0-27.0) mg/dL Creatinine 3.5 H (0.6-1.5) mg/dL Est GFR (CKD-EPI)AfAm 13.4 L (60.0-200.0) Est GFR (CKD-EPI)NonAf 11.5 L (60.0-200.0) BUN/Creatinine Ratio 28.00 H (12.00-20.00) Ratio Glucose 154 H (70-110) mg/dL POC Glucose (mg/dL) 187 H (75-99) mg/dL TIBC 194 L (228-460) ug/dL Ferritin 547.2 H (10.0-291.0) ng/mL 02/01/21 02/01/21 02/02/21 Range/Units 17:17 19:31 05:54 PT 35.4 H (9.0-12.0) sec INR 3.7 H (<1.2) Carbon Dioxide (21.6-31.8) mmol/L BUN (9.0-27.0) mg/dL Creatinine (0.6-1.5) mg/dL Est GFR (CKD-EPI)AfAm (60.0-200.0) Est GFR (CKD-EPI)NonAf (60.0-200.0) BUN/Creatinine Ratio (12.00-20.00) Ratio Glucose (70-110) mg/dL POC Glucose (mg/dL) 187 H 222 H (75-99) mg/dL TIBC (228-460) ug/dL Ferritin (10.0-291.0) ng/mL 02/02/21 Range/Units 07:05 PT (9.0-12.0) sec INR (<1.2) Carbon Dioxide (21.6-31.8) mmol/L BUN (9.0-27.0) mg/dL Creatinine (0.6-1.5) mg/dL Est GFR (CKD-EPI)AfAm (60.0-200.0) Est GFR (CKD-EPI)NonAf (60.0-200.0) BUN/Creatinine Ratio (12.00-20.00) Ratio Glucose (70-110) mg/dL POC Glucose (mg/dL) 150 H (75-99) mg/dL TIBC (228-460) ug/dL Ferritin (10.0-291.0) ng/mL Microbiology - Last 24 Hours (Table) 01/27/21 17:29 Blood Culture - Preliminary Blood No Growth after 120 hours 01/27/21 17:45 Blood Culture - Preliminary Blood No Growth after 120 hours Assessment and Plan Plan: Assessment: 1. Acute kidney injury secondary to ATN secondary to hypovolemia and poor intake. Creatinine peaked at 3.8 to this admission -3.5 as of yesterday. Labs from today are pending. Elevated BUN due to acute kidney injury as well as steroids. 2. Chronic kidney disease stage IV with baseline creatinine in the range of 2- 2.3 secondary to nephrosclerosis. 3. Chronic kidney disease mineral bone disease maintained on calcitriol. 4. COPD exacerbation. No significant fluid overload noted on chest x-ray. 5. Anemia of chronic kidney disease. Iron replete. 6. Metabolic acidosis secondary to acute kidney injury. Plan: Remains off IV fluids. Continue to hold Cozaar. Avoid nephrotoxins. Encourage oral intake. Monitor renal function. Add Aranesp. Check CBC today. Lasix 60 mg IV once today.
[2021-02-02 10:26] LABS: HCT 28.9 % (34.0-46.0); Hypochromasia Marked; MCH 30.6 pg (25.0-35.0); MCHC 31.2 g/dL (31.0-37.0); MCV 98.2 fL (80.0-100.0); Mean Platelet Volume 8.6; Platelet Count 356 k/uL (150-450); RBC 2.95 m/uL (3.80-5.40); RDW 15.2 % (11.5-15.5); WBC 27.5 k/uL (3.8-10.6)
[2021-02-02 10:36] LABS: African American GFR (CKD) 13.4 (60.0-200.0); Anion Gap 11.6 mmol/L (4.00-12.00); BUN/Creat Ratio 29.43 Ratio (12.00-20.00); Calcium 9.7 mg/dL (8.7-10.3); Carbon Dioxide 19.4 mmol/L (21.6-31.8); Magnesium 2.1 mg/dL (1.5-2.4); Non-African American GFR(CKD) 11.5 (60.0-200.0)
[2021-02-02] MEDS: ACETAMINOPHEN TAB 325 MG TAB PO PRN (11:35)
[2021-02-02 11:58] LABS: Glucose,Whole Blood 132 mg/dL (75-99)
--- NOTE | 2021-02-02 12:06 | P.PN ---
Subjective Progress Note Date: 02/02/21 Principal diagnosis: COPD exacerbation 80-year-old female, well-known to our service. The patient has history of COPD, lung cancer. Currently, the patient comes into the emergency room, on January 27, complaining of increasing shortness of breath, chest congestion, coughing, and wheezing. She denied any chest pain or pressure. She denied any fever or chills. The patient denied abdominal pain, nausea, vomiting, diarrhea, and genitourinary complaints. He was seen in the ER, and admitted with a diagnosis of COPD exacerbation, and mental status changes. Chest x-ray is positive for some chronic changes but nothing acute. In April 2019, she was diagnosed with non-small cell lung cancer, squamous cell type. She was last in the hospital in September,. White count 12.6, hemoglobin 9.1, hematocrit 28.0, and platelet count was 363,000. PT 21.6, INR 2.2, and PTT is 35.4. Sodium 133, potassium 4.9, chlorides 101, CO2 26, anion gap 6, BUN 62, creatinine 2.82. Coronavirus testing was negative. She is currently on 4 L nasal cannula, and getting saline at 75 mL an hour. On 01/30/2020 the patient is seen in follow-up on medical floor, she is sitting up in the chair, appears to be in no acute distress, she is on 4 L of oxygen, she is awake and alert, oriented 3, still complaining of shortness of breath especially with exertion, but appears to be in no respiratory distress. Current pulse ox on 4 L of oxygen is 96%, she's been afebrile, hemodynamically she s table, her admission chest x-ray has been reviewed showing chronic changes with no new or worsened acute cardiopulmonary process. Today's labs show no evidence of leukocytosis, white blood cell count is 6.5, hemoglobin is 8.6, INR today is 3.1, electrolytes were unremarkable, BUN was 75, creatinine was 3.4, and her renal function has worsened since admission, the patient remains on IV hydration with 0.9 normal saline at rate of 75 ML per hour, she remains on oral antibiotics in the form of Omnicef, she did bring treatments and IV steroids for acute exacerbation of COPD The patient is seen today 01/31/2020 in follow-up on the regular medical floor. She is currently sitting up in bed. Awake and alert in no acute distress. She is doing a bit better today compared to yesterday. She is on 4 L/m per nasal cannula to maintain O2 saturation in the 90s. Blood cultures reveal no growth. Blood glucose 203. Continued on DuoNeb inhalations, Pulmicort and Perforomist inhalations, IV Solu-Medrol. Empiric antibiotics in the form of Omnicef. Anticoagulated with warfarin. On 01/31/2021 patient seen in follow-up on medical surgical floor. Breathing very comfortably, she is up in the chair, looks very stable, 2 L of oxygen, off oxygen 98%, this can probably be weaned off completely, no fever or chills, hemodynamically patient is stable, her lung sounds are clear on today's exam, 0.9 normal saline is infusing at 75 ML per hour, no other drips. Today's labs have been reviewed, white blood cell count is 10.2, hemoglobin is 8.1, INR today is 3.2, electrolytes were within normal limits, B1 is 90 creatinine is 3.4, renal profile slightly improved. No acute events overnight, no nausea vomiting or diarrhea. Progress note dated 02/01/2021. 80-year-old female with a history of COPD exacerbation, and lung cancer. Currently, the patient's feeling a bit more short of breath this morning. She is on 3 L nasal cannula. Saturations are in the low 90s. The patient denies any cough, wheezing, or phlegm production. The patient has made herself a no code. She was recently diagnosed with lung cancer, status post right lower lobectomy. It was non-small cell lung cancer, squamous cell type. She denies any fever or chills. She denies any nausea, vomiting, or diarrhea. She is h aving some difficulty with swallowing. This has been more of a chronic problem. No new labs to report. Chest x-ray shows chronic emphysematous and pulmonary fibrotic changes, with cardiomegaly, and small bilateral pleural effusions. There is no significant change compared to an x-ray done 6 days prior. The patient is seen today 02/02/2021 follow-up on the regular medical floor. She is sitting up in a chair at the bedside. Awake and alert in no acute distress. Maintaining O2 saturations up to 100% on 4 L/m per nasal cannula. No worsening shortness of breath, cough or congestion. Blood cultures reveal no growth. White count 27.5. Hemoglobin 9.0. INR 3.7. Sodium 140. Potassium 5 .0. BUN 103. Creatinine 3.5. Glucose 145. She remains on DuoNeb inhalations, Pulmicort and Perforomist inhalations, IV Solu-Medrol. She was given an additional Lasix today as well. Objective - Vital Signs Vital signs: Vital Signs Temp 98.6 F 02/02/21 04:59 Pulse 90 02/02/21 08:34 Resp 18 02/02/21 08:34 BP 130/76 02/02/21 04:59 Pulse Ox 99 02/02/21 08:14 Intake & Output 02/01/21 02/02/21 02/02/21 18:59 06:59 18:59 Intake Total 200 360 Output Total 500 Balance 200 -140 Weight 68 kg Intake: Oral 200 360 Output: Urine 500 Other: Voiding Method Bedside Commode Bedside Commode # Voids 1 - Exam GENERAL EXAM: Alert, 80-year-old female patient, on 4 L nasal cannula, comfortable in no apparent distress. HEAD: Normocephalic. EYES: Normal reaction of pupils, equal size. NOSE: Clear with pink turbinates. THROAT: No erythema or exudates. NECK: No masses, no JVD. CHEST: No chest wall deformity. LUNGS: Equal air entry with faint end expiratory wheeze, diminished. CVS: S1 and S2 normal with no audible murmur, regular rhythm. ABDOMEN: No hepatosplenomegaly, normal bowel sounds, no guarding or rigidity. SPINE: No scoliosis or deformity SKIN: No rashes CENTRAL NERVOUS SYSTEM: No focal deficits, tone is normal in all 4 extremities. EXTREMITIES: There is no peripheral edema. No clubbing, no cyanosis. Periphera l pulses are intact. - Labs CBC & Chem 7: 02/02/21 05:54 02/02/21 05:54 Labs: Abnormal Lab Results - Last 24 Hours (Table) 02/01/21 02/01/21 02/01/21 Range/Units 06:55 06:55 17:17 WBC (3.8-10.6) k/uL RBC (3.80-5.40) m/uL Hgb (11.4-16.0) gm/dL Hct (34.0-46.0) % PT (9.0-12.0) sec INR (<1.2) Carbon Dioxide 20.6 L (21.6-31.8) mmol/L BUN 98.0 H (9.0-27.0) mg/dL Creatinine 3.5 H (0.6-1.5) mg/dL Est GFR (CKD-EPI)AfAm 13.4 L (60.0-200.0) Est GFR (CKD-EPI)NonAf 11.5 L (60.0-200.0) BUN/Creatinine Ratio 28.00 H (12.00-20.00) Ratio Glucose 154 H (70-110) mg/dL POC Glucose (mg/dL) 187 H (75-99) mg/dL TIBC 194 L (228-460) ug/dL Ferritin 547.2 H (10.0-291.0) ng/mL 02/01/21 02/02/21 02/02/21 Range/Units 19:31 05:54 05:54 WBC (3.8-10.6) k/uL RBC (3.80-5.40) m/uL Hgb (11.4-16.0) gm/dL Hct (34.0-46.0) % PT 35.4 H (9.0-12.0) sec INR 3.7 H (<1.2) Carbon Dioxide 19.4 L (21.6-31.8) mmol/L BUN 103.0 H* (9.0-27.0) mg/dL Creatinine 3.5 H (0.6-1.5) mg/dL Est GFR (CKD-EPI)AfAm 13.4 L (60.0-200.0) Est GFR (CKD-EPI)NonAf 11.5 L (60.0-200.0) BUN/Creatinine Ratio 29.43 H (12.00-20.00) Ratio Glucose 145 H (70-110) mg/dL POC Glucose (mg/dL) 222 H (75-99) mg/dL TIBC (228-460) ug/dL Ferritin (10.0-291.0) ng/mL 02/02/21 02/02/21 Range/Units 05:54 07:05 WBC 27.5 H (3.8-10.6) k/uL RBC 2.95 L (3.80-5.40) m/uL Hgb 9.0 L (11.4-16.0) gm/dL Hct 28.9 L (34.0-46.0) % PT (9.0-12.0) sec INR (<1.2) Carbon Dioxide (21.6-31.8) mmol/L BUN (9.0-27.0) mg/dL Creatinine (0.6-1.5) mg/dL Est GFR (CKD-EPI)AfAm (60.0-200.0) Est GFR (CKD-EPI)NonAf (60.0-200.0) BUN/Creatinine Ratio (12.00-20.00) Ratio Glucose (70-110) mg/dL POC Glucose (mg/dL) 150 H (75-99) mg/dL TIBC (228-460) ug/dL Ferritin (10.0-291.0) ng/mL Microbiology - Last 24 Hours (Table) 01/27/21 17:29 Blood Culture - Preliminary Blood No Growth after 120 hours 01/27/21 17:45 Blood Culture - Preliminary Blood No Growth after 120 hours Assessment and Plan Assessment: 1 Acute exacerbation of COPD, no evidence of pneumonia on the chest x-ray and patient tested negative for COVID-19 2 Acute kidney injury related to decreased oral intake, and dehydration 3 Chronic kidney disease stage III 4 History of lungs CTA status post lobectomy 5 History of COPD 6 Chronic A. fib Plan: The patient was seen and evaluated by Dr. Mendez Continue the current treatment plan Discharge planning in place We'll continue to follow I, the cosigning physician, performed a history & physical examination of the patient. Lungs sounds with faint end expiratory wheeze. Maintaining good O2 saturations in the 90s on 4 L/m per nasal cannula I discussed the assessment and plan of care with my nurse practitioner, Renetta Chambers. I attest to the above note as dictated by her.
[2021-02-02] MEDS ORDERED: ACETAMINOPHEN TAB 325 MG TAB PO PRN (12:47)
[2021-02-02] MEDS: HYDROcodone/APAP 7.5-325MG 1 EACH TAB PO PRN (14:54)
--- NOTE | 2021-02-02 16:26 | P.PN ---
Subjective Progress Note Date: 02/02/21 This is an 80-year-old female who was recently admitted with COPD acute exacerbation along with acute purulent tracheobronchitis and is being closely monitored. Patient also having some fluid overload along with acute renal failure and nephrology is following. Patient received some IV doses of Lasix a nd is maintained on bronchodilators along with IV steroids and will continue at this time. White blood count elevated at 27.5, hemoglobin is 9.0, sodium is 140, potassium is 5.0, BUN is 103 and current creatinine is 3.5. Patient normally takes Coumadin although INR continues to be elevated at 3.7 and will hold today and repeat INR in the morning. Continue with Accu-Cheks and sliding scale at this time as well. Review of systems: Constitutional: No reports of fatigue, fever, or chills, reports generalized back pain which is chronic Cardiovascular: No reports of chest pain or palpitations Respiratory: Reports continued shortness of breath GI: No reports of nausea, vomiting, or diarrhea : No reports of dysuria or retention Neurovascular: Reports generalized weakness and anxiety All medications have been reviewed Objective - Vital Signs Vital signs: Vital Signs Temp 97.8 F 02/02/21 12:19 Pulse 98 02/02/21 12:19 Resp 19 02/02/21 12:19 BP 153/75 02/02/21 12:19 Pulse Ox 96 02/02/21 12:19 Intake & Output 02/01/21 02/02/21 02/02/21 18:59 06:59 18:59 Intake Total 200 360 Output Total 500 Balance 200 -140 Weight 68 kg Intake: Oral 200 360 Output: Urine 500 Other: Voiding Method Bedside Commode Bedside Commode Bedside Commode # Voids 1 2 - Exam Gen: This is a 80-year-old female awake, alert and oriented 3, sitting up in the chair, well-developed, well-nourished HEENT: Head is atraumatic, normocephalic. Pupils equal, round. Sclerae is anicteric. NECK: Supple. No JVD. No lymphadenopathy. No thyromegaly. LUNGS: Diminished breath sounds bilaterally with some scattered rhonchi and crackles noted. Mild expiratory wheezing noted as well. No intercostal retractions. HEART: S1, S2 are present ABDOMEN: Soft. Bowel sounds are present. No masses. No tenderness. EXTREMITIES: No pedal edema. No calf tenderness. NEUROLOGICAL: Patient is awake, alert and oriented x3. Diffusely weak - Labs CBC & Chem 7: 02/02/21 05:54 02/02/21 05:54 Labs: Abnormal Lab Results - Last 24 Hours (Table) 02/01/21 02/01/21 02/01/21 Range/Units 06:55 17:17 19:31 WBC (3.8-10.6) k/uL RBC (3.80-5.40) m/uL Hgb (11.4-16.0) gm/dL Hct (34.0-46.0) % PT (9.0-12.0) sec INR (<1.2) Carbon Dioxide (21.6-31.8) mmol/L BUN (9.0-27.0) mg/dL Creatinine (0.6-1.5) mg/dL Est GFR (CKD-EPI)AfAm (60.0-200.0) Est GFR (CKD-EPI)NonAf (60.0-200.0) BUN/Creatinine Ratio (12.00-20.00) Ratio Glucose (70-110) mg/dL POC Glucose (mg/dL) 187 H 222 H (75-99) mg/dL Ferritin 547.2 H (10.0-291.0) ng/mL 02/02/21 02/02/21 02/02/21 Range/Units 05:54 05:54 05:54 WBC 27.5 H (3.8-10.6) k/uL RBC 2.95 L (3.80-5.40) m/uL Hgb 9.0 L (11.4-16.0) gm/dL Hct 28.9 L (34.0-46.0) % PT 35.4 H (9.0-12.0) sec INR 3.7 H (<1.2) Carbon Dioxide 19.4 L (21.6-31.8) mmol/L BUN 103.0 H* (9.0-27.0) mg/dL Creatinine 3.5 H (0.6-1.5) mg/dL Est GFR (CKD-EPI)AfAm 13.4 L (60.0-200.0) Est GFR (CKD-EPI)NonAf 11.5 L (60.0-200.0) BUN/Creatinine Ratio 29.43 H (12.00-20.00) Ratio Glucose 145 H (70-110) mg/dL POC Glucose (mg/dL) (75-99) mg/dL Ferritin (10.0-291.0) ng/mL 02/02/21 02/02/21 Range/Units 07:05 11:54 WBC (3.8-10.6) k/uL RBC (3.80-5.40) m/uL Hgb (11.4-16.0) gm/dL Hct (34.0-46.0) % PT (9.0-12.0) sec INR (<1.2) Carbon Dioxide (21.6-31.8) mmol/L BUN (9.0-27.0) mg/dL Creatinine (0.6-1.5) mg/dL Est GFR (CKD-EPI)AfAm (60.0-200.0) Est GFR (CKD-EPI)NonAf (60.0-200.0) BUN/Creatinine Ratio (12.00-20.00) Ratio Glucose (70-110) mg/dL POC Glucose (mg/dL) 150 H 132 H (75-99) mg/dL Ferritin (10.0-291.0) ng/mL Microbiology - Last 24 Hours (Table) 01/27/21 17:29 Blood Culture - Preliminary Blood No Growth after 120 hours 01/27/21 17:45 Blood Culture - Preliminary Blood No Growth after 120 hours Assessment and Plan Assessment: Chronic obstructive pulmonary disease acute exacerbation with acute purulent tracheobronchitis with hypoxic respiratory failure, present on admission Increased white blood count Mild fluid overload Acute renal failure with acute prerenal acute tubular necrosis Chronic kidney disease stage III baseline possibly Change in mental status, acute metabolic encephalopathy, multifactorial, improved Anemia, normocytic anemia of chronic disease Hyponatremia Dehydration, present on admission hypercalcemia, present on admission History of newly diagnosed lung cancer not receiving any treatment History of atrial fibrillation chronic history of DVT hypertension Hyperlipidemia Hypothyroidism No code, no CPR, no vent Plan: Continue with current medications and bronchodilators along with IV steroids. Pulmonary and nephrology following and creatinine continues to be 3.5 and elevated BUN. Patient started on sodium bicarb tablets and IV fluids have been discontinued. Patient did receive another dose of IV Lasix. INR continues to be elevated and will hold Coumadin and repeat a.m. labs. Will repeat labs and continue to monitor.
[2021-02-02 17:04] LABS: Glucose,Whole Blood 241 mg/dL (75-99)
[2021-02-02] MEDS: SODIUM BICARBONATE TAB 650 MG TAB PO SCH ×2 (17:16→21:16)
[2021-02-02] MEDS ORDERED: MAGNESIUM HYDROXIDE 2,400 MG/10 ML CUP PO PRN (17:30)
[2021-02-02] MEDS ORDERED: WARFARIN 0.5 MG TAB PO ONE (18:00)
[2021-02-02] MEDS: HYDROcodone/APAP 7.5-325MG 1 EACH TAB PO SCH (20:17)
[2021-02-02 20:34] LABS: Glucose,Whole Blood 91 mg/dL (75-99)
[2021-02-03] MEDS: methylPREDNISolone SOD SUCCI 125 MG/2 ML VIAL IV SCH ×2 (06:00→13:04)
[2021-02-03 07:39] LABS: Glucose,Whole Blood 126 mg/dL (75-99)
[2021-02-03 08:25] LABS: INR 2.9 (<1.2); Prothrombin Time 28.4 sec (9.0-12.0)
[2021-02-03] MEDS: INSULIN ASPART (NovoLOG) 100 UNIT/ML VIAL SQ SCH ×4 (09:01→20:28)
[2021-02-03] MEDS: BUDESONIDE 1 MG/2 ML NEBU INHALATION SCH ×2 (09:05→21:50)
[2021-02-03] MEDS: IPRATROPIUM-ALBUTEROL 3 ML NEB INHALATION SCH ×4 (09:06→21:50)
[2021-02-03] MEDS: FORMOTEROL FUMARATE 20 MCG/2 ML NEBU INHALATION SCH ×2 (09:06→21:50)
[2021-02-03] MEDS: CEFDINIR 300 MG CAP PO SCH (09:07)
[2021-02-03] MEDS: SENNOSIDES 8.6 MG TAB PO SCH (09:07)
[2021-02-03] MEDS: SODIUM BICARBONATE TAB 650 MG TAB PO SCH ×3 (09:07→22:40)
[2021-02-03] MEDS: VIT A,C & E-LUTEIN-MINERALS 1 EACH TAB PO SCH (09:07)
[2021-02-03] MEDS: FERROUS SULFATE 325 MG TAB PO SCH (09:07)
--- NOTE | 2021-02-03 10:25 | P.PN ---
Subjective Patient is seen in follow-up for acute kidney injury on chronic kidney disease. Appetite is fair. Dyspnea stable. Currently on 3 L nasal cannula. No vomiting or diarrhea. Blood pressure stable. Vital signs are stable. General: The patient appeared well nourished and normally developed. HEENT: No JVD. LUNGS: Breath sounds decreased. HEART: Rate and Rhythm are regular. ABDOMEN: Soft, nontender. EXTREMITITES: No edema. Objective - Vital Signs Vital signs: Vital Signs Temp 97.6 F 02/03/21 05:00 Pulse 78 02/03/21 05:00 Resp 16 02/03/21 05:00 BP 122/76 02/03/21 05:00 Pulse Ox 98 02/03/21 05:00 Intake & Output 02/02/21 02/03/21 02/03/21 18:59 06:59 18:59 Intake Total 120 Output Total 100 Balance -100 120 Intake: Oral 120 Output: Urine 100 Other: Voiding Method Bedside Commode Bedside Commode # Voids 2 4 - Labs CBC & Chem 7: 02/02/21 05:54 02/02/21 05:54 Labs: Abnormal Lab Results - Last 24 Hours (Table) 02/02/21 02/02/21 02/02/21 Range/Units 05:54 05:54 11:54 WBC 27.5 H (3.8-10.6) k/uL RBC 2.95 L (3.80-5.40) m/uL Hgb 9.0 L (11.4-16.0) gm/dL Hct 28.9 L (34.0-46.0) % PT (9.0-12.0) sec INR (<1.2) Carbon Dioxide 19.4 L (21.6-31.8) mmol/L BUN 103.0 H* (9.0-27.0) mg/dL Creatinine 3.5 H (0.6-1.5) mg/dL Est GFR (CKD-EPI)AfAm 13.4 L (60.0-200.0) Est GFR (CKD-EPI)NonAf 11.5 L (60.0-200.0) BUN/Creatinine Ratio 29.43 H (12.00-20.00) Ratio Glucose 145 H (70-110) mg/dL POC Glucose (mg/dL) 132 H (75-99) mg/dL 02/02/21 02/03/21 02/03/21 Range/Units 17:03 07:38 07:47 WBC (3.8-10.6) k/uL RBC (3.80-5.40) m/uL Hgb (11.4-16.0) gm/dL Hct (34.0-46.0) % PT 28.4 H (9.0-12.0) sec INR 2.9 H (<1.2) Carbon Dioxide (21.6-31.8) mmol/L BUN (9.0-27.0) mg/dL Creatinine (0.6-1.5) mg/dL Est GFR (CKD-EPI)AfAm (60.0-200.0) Est GFR (CKD-EPI)NonAf (60.0-200.0) BUN/Creatinine Ratio (12.00-20.00) Ratio Glucose (70-110) mg/dL POC Glucose (mg/dL) 241 H 126 H (75-99) mg/dL Microbiology - Last 24 Hours (Table) 01/27/21 17:29 Blood Culture - Final Blood No Growth after 144 hours 01/27/21 17:45 Blood Culture - Final Blood No Growth after 144 hours Assessment and Plan Plan: Assessment: 1. Acute kidney injury secondary to ATN secondary to hypovolemia and poor intake. Creatinine peaked at 3.8 to this admission -3.5 as of yesterday. Labs from today are pending. Elevated BUN due to acute kidney injury/diuresis as we ll as steroids. 2. Chronic kidney disease stage IV with baseline creatinine in the range of 2- 2.3 secondary to nephrosclerosis. 3. Chronic kidney disease mineral bone disease maintained on calcitriol. 4. COPD exacerbation. No significant fluid overload noted on chest x-ray. 5. Anemia of chronic kidney disease. Iron replete. Maintained on Aranesp. 6. Metabolic acidosis secondary to acute kidney injury. Plan: Remains off IV fluids. Continue to hold Cozaar. Avoid nephrotoxins. Encourage oral intake. Monitor renal function. Morning labs pending. Hold off on diuretics.
[2021-02-03 11:44] LABS: Glucose,Whole Blood 218 mg/dL (75-99)
--- NOTE | 2021-02-03 13:26 | P.PN ---
Subjective Progress Note Date: 02/03/21 Principal diagnosis: COPD exacerbation 80-year-old female, well-known to our service. The patient has history of COPD, lung cancer. Currently, the patient comes into the emergency room, on January 27, complaining of increasing shortness of breath, chest congestion, coughing, and wheezing. She denied any chest pain or pressure. She denied any fever or chills. The patient denied abdominal pain, nausea, vomiting, diarrhea, and genitourinary complaints. He was seen in the ER, and admitted with a diagnosis of COPD exacerbation, and mental status changes. Chest x-ray is positive for some chronic changes but nothing acute. In April 2019, she was diagnosed with non-small cell lung cancer, squamous cell type. She was last in the hospital in September,. White count 12.6, hemoglobin 9.1, hematocrit 28.0, and platelet count was 363,000. PT 21.6, INR 2.2, and PTT is 35.4. Sodium 133, potassium 4.9, chlorides 101, CO2 26, anion gap 6, BUN 62, creatinine 2.82. Coronavirus testing was negative. She is currently on 4 L nasal cannula, and getting saline at 75 mL an hour. On 01/30/2020 the patient is seen in follow-up on medical floor, she is sitting up in the chair, appears to be in no acute distress, she is on 4 L of oxygen, she is awake and alert, oriented 3, still complaining of shortness of breath especially with exertion, but appears to be in no respiratory distress. Current pulse ox on 4 L of oxygen is 96%, she's been afebrile, hemodynamically she s table, her admission chest x-ray has been reviewed showing chronic changes with no new or worsened acute cardiopulmonary process. Today's labs show no evidence of leukocytosis, white blood cell count is 6.5, hemoglobin is 8.6, INR today is 3.1, electrolytes were unremarkable, BUN was 75, creatinine was 3.4, and her renal function has worsened since admission, the patient remains on IV hydration with 0.9 normal saline at rate of 75 ML per hour, she remains on oral antibiotics in the form of Omnicef, she did bring treatments and IV steroids for acute exacerbation of COPD The patient is seen today 01/31/2020 in follow-up on the regular medical floor. She is currently sitting up in bed. Awake and alert in no acute distress. She is doing a bit better today compared to yesterday. She is on 4 L/m per nasal cannula to maintain O2 saturation in the 90s. Blood cultures reveal no growth. Blood glucose 203. Continued on DuoNeb inhalations, Pulmicort and Perforomist inhalations, IV Solu-Medrol. Empiric antibiotics in the form of Omnicef. Anticoagulated with warfarin. On 01/31/2021 patient seen in follow-up on medical surgical floor. Breathing very comfortably, she is up in the chair, looks very stable, 2 L of oxygen, off oxygen 98%, this can probably be weaned off completely, no fever or chills, hemodynamically patient is stable, her lung sounds are clear on today's exam, 0.9 normal saline is infusing at 75 ML per hour, no other drips. Today's labs have been reviewed, white blood cell count is 10.2, hemoglobin is 8.1, INR today is 3.2, electrolytes were within normal limits, B1 is 90 creatinine is 3.4, renal profile slightly improved. No acute events overnight, no nausea vomiting or diarrhea. Progress note dated 02/01/2021. 80-year-old female with a history of COPD exacerbation, and lung cancer. Currently, the patient's feeling a bit more short of breath this morning. She is on 3 L nasal cannula. Saturations are in the low 90s. The patient denies any cough, wheezing, or phlegm production. The patient has made herself a no code. She was recently diagnosed with lung cancer, status post right lower lobectomy. It was non-small cell lung cancer, squamous cell type. She denies any fever or chills. She denies any nausea, vomiting, or diarrhea. She is h aving some difficulty with swallowing. This has been more of a chronic problem. No new labs to report. Chest x-ray shows chronic emphysematous and pulmonary fibrotic changes, with cardiomegaly, and small bilateral pleural effusions. There is no significant change compared to an x-ray done 6 days prior. The patient is seen today 02/02/2021 follow-up on the regular medical floor. She is sitting up in a chair at the bedside. Awake and alert in no acute distress. Maintaining O2 saturations up to 100% on 4 L/m per nasal cannula. No worsening shortness of breath, cough or congestion. Blood cultures reveal no growth. White count 27.5. Hemoglobin 9.0. INR 3.7. Sodium 140. Potassium 5 .0. BUN 103. Creatinine 3.5. Glucose 145. She remains on DuoNeb inhalations, Pulmicort and Perforomist inhalations, IV Solu-Medrol. She was given an additional Lasix today as well. The patient is seen today 02/03/2021 in follow-up on the regular medical floor. Currently sitting up in a chair at the bedside. Awake and alert in no acute distress. She is maintaining O2 saturations in the high 90s on 3 L/m per nasal cannula. She's afebrile. Hemodynamically stable. Blood cultures reveal no growth. INR 2.9. Glucose 218. She remains on DuoNeb inhalations, Pulmicort and Perforomist inhalations, IV Solu-Medrol. Anticoagulated with warfarin. Objective - Vital Signs Vital signs: Vital Signs Temp 97.9 F 02/03/21 13:00 Pulse 91 02/03/21 13:00 Resp 20 02/03/21 13:00 BP 150/77 02/03/21 13:00 Pulse Ox 100 02/03/21 13:00 Intake & Output 02/02/21 02/03/21 02/03/21 18:59 06:59 18:59 Intake Total 120 Output Total 100 Balance -100 120 Intake: Oral 120 Output: Urine 100 Other: Voiding Method Bedside Commode Bedside Commode # Voids 2 4 - Exam GENERAL EXAM: Alert, 80-year-old female patient, on 3 L nasal cannula, comfortable in no apparent distress. HEAD: Normocephalic. EYES: Normal reaction of pupils, equal size. NOSE: Clear with pink turbinates. THROAT: No erythema or exudates. NECK: No masses, no JVD. CHEST: No chest wall deformity. LUNGS: Equal air entry with faint end expiratory wheeze, diminished. CVS: S1 and S2 normal with no audible murmur, regular rhythm. ABDOMEN: No hepatosplenomegaly, normal bowel sounds, no guarding or rigidity. SPINE: No scoliosis or deformity SKIN: No rashes CENTRAL NERVOUS SYSTEM: No focal deficits, tone is normal in all 4 extremities. EXTREMITIES: There is no peripheral edema. No clubbing, no cyanosis. Peripheral pulses are intact. - Labs CBC & Chem 7: 02/02/21 05:54 02/02/21 05:54 Labs: Abnormal Lab Results - Last 24 Hours (Table) 02/02/21 02/03/21 02/03/21 Range/Units 17:03 07:38 07:47 PT 28.4 H (9.0-12.0) sec INR 2.9 H (<1.2) POC Glucose (mg/dL) 241 H 126 H (75-99) mg/dL 02/03/21 Range/Units 11:42 PT (9.0-12.0) sec INR (<1.2) POC Glucose (mg/dL) 218 H (75-99) mg/dL Microbiology - Last 24 Hours (Table) 01/27/21 17:29 Blood Culture - Final Blood No Growth after 144 hours 01/27/21 17:45 Blood Culture - Final Blood No Growth after 144 hours Assessment and Plan Assessment: 1 Acute exacerbation of COPD, no evidence of pneumonia on the chest x-ray and patient tested negative for COVID-19 2 Acute kidney injury related to decreased oral intake, and dehydration 3 Chronic kidney disease stage III 4 History of lung cancer status post lobectomy 5 History of COPD 6 Chronic atrial fibrillation Plan: The patient was seen and evaluated by Dr. Mendez Continue bronchodilators Wean down the IV Solu-Medrol Discharge planning in place We'll continue to follow I, the cosigning physician, performed a history & physical examination of the patient. Lungs sounds with faint end expiratory wheeze. Maintaining good O2 saturations in the 90s on 3 L/m per nasal cannula I discussed the assessment and plan of care with my nurse practitioner, Renetta Chambers. I attest to the above note as dictated by her.
[2021-02-03] MEDS: ALPRAZolam 0.25 MG TAB PO PRN (15:24)
--- NOTE | 2021-02-03 15:53 | P.PN ---
Subjective Progress Note Date: 02/03/21 This is an 80-year-old female who was recently admitted with COPD acute exacerbation along with acute purulent tracheobronchitis and is being closely monitored. Patient also having some fluid overload along with acute renal failure and nephrology is following. Patient received some IV doses of Lasix a nd is maintained on bronchodilators along with IV steroids and will continue at this time. White blood count elevated at 27.5, hemoglobin is 9.0, sodium is 140, potassium is 5.0, BUN is 103 and current creatinine is 3.5. Patient normally takes Coumadin although INR continues to be elevated at 3.7 and will hold today and repeat INR in the morning. Continue with Accu-Cheks and sliding scale at this time as well. 02/03/2021 Patient is seen and evaluated and follow-up continues to be sitting up in the chair continues to be dyspneic and anxious although breathing is improved and patient is maintained on 3-4 L at her baseline. Patient continues on IV steroids which have been titrated down and will switch to oral for a short prednisone taper on discharge. Nephrology along with pulmonary following. INR today is 2.9 and Coumadin has been resumed. This morning's basic labs currently pending at this time. Review of systems: Constitutional: No reports of fatigue, fever, or chills, reports generalized back pain which is chronic Cardiovascular: No reports of chest pain or palpitations Respiratory: Reports continued shortness of breath GI: No reports of nausea, vomiting, or diarrhea : No reports of dysuria or retention Neurovascular: Reports generalized weakness and anxiety All medications have been reviewed Objective - Vital Signs Vital signs: Vital Signs Temp 97.6 F 02/03/21 05:00 Pulse 78 02/03/21 05:00 Resp 16 02/03/21 05:00 BP 122/76 02/03/21 05:00 Pulse Ox 98 02/03/21 05:00 Intake & Output 02/02/21 02/03/21 02/03/21 18:59 06:59 18:59 Intake Total 120 Output Total 100 Balance -100 120 Intake: Oral 120 Output: Urine 100 Other: Voiding Method Bedside Commode Bedside Commode # Voids 2 4 - Exam Gen: This is a 80-year-old female awake, alert and oriented 3, sitting up in the chair, well-developed, well-nourished, anxious HEENT: Head is atraumatic, normocephalic. Pupils equal, round. Sclerae is anicteric. NECK: Supple. No JVD. No lymphadenopathy. No thyromegaly. LUNGS: Diminished breath sounds bilaterally with no wheezing or rhonchi noted. No intercostal retractions. HEART: S1, S2 are present ABDOMEN: Soft. Bowel sounds are present. No masses. No tenderness. EXTREMITIES: No pedal edema. No calf tenderness. NEUROLOGICAL: Patient is awake, alert and oriented x3. Diffusely weak - Labs CBC & Chem 7: 02/02/21 05:54 02/02/21 05:54 Labs: Abnormal Lab Results - Last 24 Hours (Table) 02/02/21 02/03/21 02/03/21 Range/Units 17:03 07:38 07:47 PT 28.4 H (9.0-12.0) sec INR 2.9 H (<1.2) POC Glucose (mg/dL) 241 H 126 H (75-99) mg/dL 02/03/21 Range/Units 11:42 PT (9.0-12.0) sec INR (<1.2) POC Glucose (mg/dL) 218 H (75-99) mg/dL Microbiology - Last 24 Hours (Table) 01/27/21 17:29 Blood Culture - Final Blood No Growth after 144 hours 01/27/21 17:45 Blood Culture - Final Blood No Growth after 144 hours Assessment and Plan Assessment: Chronic obstructive pulmonary disease acute exacerbation with acute purulent tracheobronchitis with hypoxic respiratory failure, present on admission Increased white blood count Mild fluid overload Acute renal failure with acute prerenal acute tubular necrosis Chronic kidney disease stage III baseline possibly Change in mental status, acute metabolic encephalopathy, multifactorial, improved Anemia, normocytic anemia of chronic disease Hyponatremia Dehydration, present on admission hypercalcemia, present on admission History of newly diagnosed lung cancer not receiving any treatment History of atrial fibrillation chronic history of DVT hypertension Hyperlipidemia Hypothyroidism No code, no CPR, no vent Plan: Continue with current medications and bronchodilators along with IV steroids. We'll transition to prednisone oral and discharge. Pulmonary and nephrology following and creatinine continues to be elevated . Patient maintained on sodium bicarb tablets and IV fluids have been discontinued. Coumadin resumed. Will discuss with case management and social work about discharge planning and possible home care in the outpatient setting. Possible discharge in 24 hours.
[2021-02-03] MEDS ORDERED: methylPREDNISolone SOD SUCCI 125 MG/2 ML VIAL IV SCH (16:00)
[2021-02-03] MEDS: methylPREDNISolone SOD SUCCI 40 MG/ML 1 ML VIAL IV SCH (16:37)
[2021-02-03 17:39] LABS: Glucose,Whole Blood 199 mg/dL (75-99)
[2021-02-03] MEDS ORDERED: WARFARIN 1 MG TAB PO ONE (18:00)
[2021-02-03 20:07] LABS: Glucose,Whole Blood 236 mg/dL (75-99)
[2021-02-03] MEDS: HYDROcodone/APAP 7.5-325MG 1 EACH TAB PO PRN (20:28)
[2021-02-03 20:43] LABS: African American GFR (CKD) 13.8 (60.0-200.0); Anion Gap 9.4 mmol/L (4.00-12.00); Calcium 9.4 mg/dL (8.7-10.3); Carbon Dioxide 23.6 mmol/L (21.6-31.8); Magnesium 2.2 mg/dL (1.5-2.4); Non-African American GFR(CKD) 11.9 (60.0-200.0); Potassium 5.1 mmol/L (3.5-5.5)
[2021-02-03] MEDS: HYDROcodone/APAP 7.5-325MG 1 EACH TAB PO SCH (22:09)
[2021-02-04] MEDS: methylPREDNISolone SOD SUCCI 40 MG/ML 1 ML VIAL IV SCH ×2 (00:24→09:04)
[2021-02-04 07:09] LABS: Glucose,Whole Blood 168 mg/dL (75-99)
[2021-02-04] MEDS: IPRATROPIUM-ALBUTEROL 3 ML NEB INHALATION SCH ×4 (07:27→19:52)
[2021-02-04] MEDS: FORMOTEROL FUMARATE 20 MCG/2 ML NEBU INHALATION SCH ×2 (07:27→20:09)
[2021-02-04] MEDS: BUDESONIDE 1 MG/2 ML NEBU INHALATION SCH ×2 (07:27→19:53)
[2021-02-04 07:37] LABS: African American GFR (CKD) 12 (>60 ml/min/1.73 sqM); Anion Gap 4 mmol/L; Calcium 9.7 mg/dL (8.4-10.2); Carbon Dioxide 27 mmol/L (22-30); Chloride 106 mmol/L (98-107); Glucose 153 mg/dL (74-99); Magnesium 3.1 mg/dL (1.6-2.3); Non-African American GFR(CKD) 11 (>60 ml/min/1.73 sqM); Potassium 5.4 mmol/L (3.5-5.1); Sodium 137 mmol/L (137-145)
[2021-02-04 07:58] LABS: Blood Urea Nitrogen 119 mg/dL (7-17)
[2021-02-04] MEDS: INSULIN ASPART (NovoLOG) 100 UNIT/ML VIAL SQ SCH ×4 (09:04→20:43)
[2021-02-04] MEDS: ALPRAZolam 0.25 MG TAB PO PRN ×2 (09:04→15:04)
[2021-02-04] MEDS: SENNOSIDES 8.6 MG TAB PO SCH (09:04)
[2021-02-04] MEDS: SODIUM BICARBONATE TAB 650 MG TAB PO SCH ×3 (09:04→20:43)
[2021-02-04] MEDS: FERROUS SULFATE 325 MG TAB PO SCH (09:05)
[2021-02-04] MEDS: VIT A,C & E-LUTEIN-MINERALS 1 EACH TAB PO SCH (09:05)
[2021-02-04] MEDS ORDERED: SODIUM POLYSTYRENE SULFONATE 15 GM/60 ML BOTTLE PO ONE (11:17)
[2021-02-04 11:41] LABS: INR 2.2 (0.90-1.11); Prothrombin Time 22.8 sec (9.9-11.9)
[2021-02-04 11:48] LABS: Glucose,Whole Blood 205 mg/dL (75-99)
--- NOTE | 2021-02-04 13:45 | P.PN ---
Subjective Progress Note Date: 02/04/21 Principal diagnosis: Acute exacerbation of COPD 80-year-old female, well-known to our service. The patient has history of COPD, lung cancer. Currently, the patient comes into the emergency room, on January 27, complaining of increasing shortness of breath, chest congestion, coughing, and wheezing. She denied any chest pain or pressure. She denied any fever or chills. The patient denied abdominal pain, nausea, vomiting, diarrhea, and genitourinary complaints. He was seen in the ER, and admitted with a diagnosis of COPD exacerbation, and mental status changes. Chest x-ray is positive for some chronic changes but nothing acute. In April 2019, she was diagnosed with non-small cell lung cancer, squamous cell type. She was last in the hospital in September,. White count 12.6, hemoglobin 9.1, hematocrit 28.0, and platelet count was 363,000. PT 21.6, INR 2.2, and PTT is 35.4. Sodium 133, potassium 4.9, chlorides 101, CO2 26, anion gap 6, BUN 62, creatinine 2.82. Coronavirus testing was negative. She is currently on 4 L nasal cannula, and getting saline at 75 mL an hour. On 01/30/2020 the patient is seen in follow-up on medical floor, she is sitting up in the chair, appears to be in no acute distress, she is on 4 L of oxygen, she is awake and alert, oriented 3, still complaining of shortness of breath especially with exertion, but appears to be in no respiratory distress. Current pulse ox on 4 L of oxygen is 96%, she's been afebrile, hemodynamically she stable, her admission chest x-ray has been reviewed showing chronic changes with no new or worsened acute cardiopulmonary process. Today's labs show no evidence of leukocytosis, white blood cell count is 6.5, hemoglobin is 8.6, INR today is 3.1, electrolytes were unremarkable, BUN was 75, creatinine was 3.4, and her renal function has worsened since admission, the patient remains on IV hydration with 0.9 normal saline at rate of 75 ML per hour, she remains on oral antibiotics in the form of Omnicef, she did bring treatments and IV steroids for acute exacerbation of COPD The patient is seen today 01/31/2020 in follow-up on the regular medical floor. She is currently sitting up in bed. Awake and alert in no acute distress. She is doing a bit better today compared to yesterday. She is on 4 L/m per nasal cannula to maintain O2 saturation in the 90s. Blood cultures reveal no growth. Blood glucose 203. Continued on DuoNeb inhalations, Pulmicort and Perforomist inhalations, IV Solu-Medrol. Empiric antibiotics in the form of Omnicef. Anticoagulated with warfarin. On 01/31/2021 patient seen in follow-up on medical surgical floor. Breathing very comfortably, she is up in the chair, looks very stable, 2 L of oxygen, off oxygen 98%, this can probably be weaned off completely, no fever or chills, hemodynamically patient is stable, her lung sounds are clear on today's exam, 0.9 normal saline is infusing at 75 ML per hour, no other drips. Today's labs have been reviewed, white blood cell count is 10.2, hemoglobin is 8.1, INR today is 3.2, electrolytes were within normal limits, B1 is 90 creatinine is 3.4, renal profile slightly improved. No acute events overnight, no nausea vomiting or diarrhea. Progress note dated 02/01/2021. 80-year-old female with a history of COPD exacerbation, and lung cancer. Currently, the patient's feeling a bit more short of breath this morning. She is on 3 L nasal cannula. Saturations are in the low 90s. The patient denies an y cough, wheezing, or phlegm production. The patient has made herself a no code. She was recently diagnosed with lung cancer, status post right lower lobectomy. It was non-small cell lung cancer, squamous cell type. She denies any fever or chills. She denies any nausea, vomiting, or diarrhea. She is having some difficulty with swallowing. This has been more of a chronic problem. No new labs to report. Chest x-ray shows chronic emphysematous and pulmonary fibrotic changes, with cardiomegaly, and small bilateral pleural effusions. There is no significant change compared to an x-ray done 6 days prior. The patient is seen today 02/02/2021 follow-up on the regular medical floor. She is sitting up in a chair at the bedside. Awake and alert in no acute distress. Maintaining O2 saturations up to 100% on 4 L/m per nasal cannula. No worsening shortness of breath, cough or congestion. Blood cultures reveal no growth. White count 27.5. Hemoglobin 9.0. INR 3.7. Sodium 140. Potassium 5.0. BUN 103. Creatinine 3.5. Glucose 145. She remains on DuoNeb inhalations, Pulmicort and Perforomist inhalations, IV Solu-Medrol. She was given an additional Lasix today as well. The patient is seen today 02/03/2021 in follow-up on the regular medical floor. Currently sitting up in a chair at the bedside. Awake and alert in no acute distress. She is maintaining O2 saturations in the high 90s on 3 L/m per nasal cannula. She's afebrile. Hemodynamically stable. Blood cultures reveal no growth. INR 2.9. Glucose 218. She remains on DuoNeb inhalations, Pulmicort and Perforomist inhalations, IV Solu-Medrol. Anticoagulated with warfarin. Patient was reevaluated today on 02/04/2021, remains on the regular medical floor, she is on 3 L nasal cannula with O2 saturation in the 90s. Patient is doing well from the pulmonary perspective, hardly any cough no wheezing no shortness of breath. No fever no chills no hemoptysis no chest pain. However because of her worsening renal functioning, patient is being followed by nephrology, and she was told by nephrology that she is not ready to be discharged, but plans are in progress to discharge the patient in the next 2 days. Creatinine jumped up from 2.82 on admission and it is now 3.71. BUN was 62 on admission and it is now 119 it was felt that her acute on chronic kidney injury is secondary to hypovolemia and poor intake. Oral intake has been encouraged, but does not seem to be happening. I feel the patient will likely benefit from increasing her IV fluids cautiously and continue to monitor renal profile. Especially with the patient not taking much orally. Objective - Vital Signs Vital signs: Vital Signs Temp 98.0 F 02/04/21 12:21 Pulse 80 02/04/21 12:21 Resp 16 02/04/21 12:21 BP 130/75 02/04/21 12:21 Pulse Ox 97 02/04/21 12:21 Intake & Output 02/03/21 02/04/21 02/04/21 18:59 06:59 18:59 Intake Total 240 480 120 Balance 240 480 120 Weight 68 kg Intake: Oral 240 480 120 Other: # Voids 3 3 # Bowel Movements 1 - Exam GENERAL EXAM: Alert, 80-year-old female patient, on 3 L nasal cannula, comfortable in no apparent distress. HEAD: Normocephalic. Atraumatic HEENT: PERRLA, EOMI, anicteric, no neck masses, no JVD, no stridor. CHEST: No chest wall deformity. LUNGS:slightly diminished at the right base. No rhonchi and no wheezes. CVS: S1 and S2 normal with no audible murmur, regular rhythm. ABDOMEN: No hepatosplenomegaly, normal bowel sounds, no guarding or rigidity. SKIN: No rashes CENTRAL NERVOUS SYSTEM: No focal deficits, tone is normal in all 4 extremities. EXTREMITIES: There is no peripheral edema. No clubbing, no cyanosis. P eripheral pulses are intact. - Labs CBC & Chem 7: 02/02/21 05:54 02/04/21 06:09 Labs: Abnormal Lab Results - Last 24 Hours (Table) 02/03/21 02/03/21 02/03/21 Range/Units 07:47 17:38 20:05 PT (9.9-11.9) sec INR (0.90-1.11) Potassium (3.5-5.1) mmol/L BUN 119.0 H* (9.0-27.0) mg/dL Creatinine 3.4 H (0.6-1.5) mg/dL Est GFR (CKD-EPI)AfAm 13.8 L (60.0-200.0) Est GFR (CKD-EPI)NonAf 11.9 L (60.0-200.0) BUN/Creatinine Ratio 35.00 H (12.00-20.00) Ratio Glucose 124 H (70-110) mg/dL POC Glucose (mg/dL) 199 H 236 H (75-99) mg/dL Magnesium (1.6-2.3) mg/dL 02/04/21 02/04/21 02/04/21 Range/Units 06:09 06:09 07:07 PT 22.8 H (9.9-11.9) sec INR 2.20 H (0.90-1.11) Potassium 5.4 H (3.5-5.1) mmol/L BUN 119 H* (9.0-27.0) mg/dL Creatinine 3.71 H (0.6-1.5) mg/dL Est GFR (CKD-EPI)AfAm (60.0-200.0) Est GFR (CKD-EPI)NonAf (60.0-200.0) BUN/Creatinine Ratio (12.00-20.00) Ratio Glucose 153 H (70-110) mg/dL POC Glucose (mg/dL) 168 H (75-99) mg/dL Magnesium 3.1 H (1.6-2.3) mg/dL 02/04/21 Range/Units 11:47 PT (9.9-11.9) sec INR (0.90-1.11) Potassium (3.5-5.1) mmol/L BUN (9.0-27.0) mg/dL Creatinine (0.6-1.5) mg/dL Est GFR (CKD-EPI)AfAm (60.0-200.0) Est GFR (CKD-EPI)NonAf (60.0-200.0) BUN/Creatinine Ratio (12.00-20.00) Ratio Glucose (70-110) mg/dL POC Glucose (mg/dL) 205 H (75-99) mg/dL Magnesium (1.6-2.3) mg/dL Assessment and Plan Assessment: Impression: Acute on chronic hypoxic respiratory failure secondary to acute exacerbation of COPD and underlying bronchogenic carcinoma and previous right lobectomy. Acute on chronic kidney injury secondary to hypovolemia, patient will benefit from increasing her IV fluid and oral intake. Hence I recommended normal saline at 75 mL per hour. History of chronic atrial fibrillation. History of arterial thrombosis requiring anticoagulation therapy History of lung cancer and previous lobectomy. Recommendation: Continue oxygen and titrate accordingly Continue bronchodilators. Continue IV fluid and I started the patient on normal saline at 75 mL per hour. Repeat renal profile in the next 24 hours. We'll continue to follow. Time with Patient: Less than 30
--- NOTE | 2021-02-04 13:55 | P.PN ---
Subjective Patient is seen in follow-up for acute kidney injury on chronic kidney disease. Appetite is fair. Dyspnea stable. Currently on 3 L nasal cannula. No vomiting or diarrhea. Blood pressure stable. Renal function worse today. Creatinine 3.71. Vital signs are stable. General: The patient appeared well nourished and normally developed. HEENT: No JVD. LUNGS: Breath sounds decreased. HEART: Rate and Rhythm are regular. ABDOMEN: Soft, nontender. EXTREMITITES: No edema. Objective - Vital Signs Vital signs: Vital Signs Temp 98.0 F 02/04/21 12:21 Pulse 80 02/04/21 12:21 Resp 16 02/04/21 12:21 BP 130/75 02/04/21 12:21 Pulse Ox 97 02/04/21 12:21 Intake & Output 02/03/21 02/04/21 02/04/21 18:59 06:59 18:59 Intake Total 240 480 120 Balance 240 480 120 Weight 68 kg Intake: Oral 240 480 120 Other: # Voids 3 3 # Bowel Movements 1 - Labs CBC & Chem 7: 02/02/21 05:54 02/04/21 06:09 Labs: Abnormal Lab Results - Last 24 Hours (Table) 02/03/21 02/03/21 02/03/21 Range/Units 07:47 17:38 20:05 PT (9.9-11.9) sec INR (0.90-1.11) Potassium (3.5-5.1) mmol/L BUN 119.0 H* (9.0-27.0) mg/dL Creatinine 3.4 H (0.6-1.5) mg/dL Est GFR (CKD-EPI)AfAm 13.8 L (60.0-200.0) Est GFR (CKD-EPI)NonAf 11.9 L (60.0-200.0) BUN/Creatinine Ratio 35.00 H (12.00-20.00) Ratio Glucose 124 H (70-110) mg/dL POC Glucose (mg/dL) 199 H 236 H (75-99) mg/dL Magnesium (1.6-2.3) mg/dL 02/04/21 02/04/21 02/04/21 Range/Units 06:09 06:09 07:07 PT 22.8 H (9.9-11.9) sec INR 2.20 H (0.90-1.11) Potassium 5.4 H (3.5-5.1) mmol/L BUN 119 H* (9.0-27.0) mg/dL Creatinine 3.71 H (0.6-1.5) mg/dL Est GFR (CKD-EPI)AfAm (60.0-200.0) Est GFR (CKD-EPI)NonAf (60.0-200.0) BUN/Creatinine Ratio (12.00-20.00) Ratio Glucose 153 H (70-110) mg/dL POC Glucose (mg/dL) 168 H (75-99) mg/dL Magnesium 3.1 H (1.6-2.3) mg/dL 02/04/21 Range/Units 11:47 PT (9.9-11.9) sec INR (0.90-1.11) Potassium (3.5-5.1) mmol/L BUN (9.0-27.0) mg/dL Creatinine (0.6-1.5) mg/dL Est GFR (CKD-EPI)AfAm (60.0-200.0) Est GFR (CKD-EPI)NonAf (60.0-200.0) BUN/Creatinine Ratio (12.00-20.00) Ratio Glucose (70-110) mg/dL POC Glucose (mg/dL) 205 H (75-99) mg/dL Magnesium (1.6-2.3) mg/dL Assessment and Plan Plan: Assessment: 1. Acute kidney injury secondary to ATN secondary to hypovolemia and poor intake. Renal function worse today. Creatinine 3.71. Elevated BUN due to acute kidney injury/diuresis as well as steroids. 2. Chronic kidney disease stage IV with baseline creatinine in the range of 2- 2.3 secondary to nephrosclerosis. 3. Chronic kidney disease mineral bone disease maintained on calcitriol. 4. COPD exacerbation. No significant fluid overload noted on chest x-ray. 5. Anemia of chronic kidney disease. Iron replete. Maintained on Aranesp. 6. Metabolic acidosis secondary to acute kidney injury. Improved. Plan: Started on IV fluids today. Continue to hold Cozaar. Avoid nephrotoxins. Encourage oral intake. Monitor renal function. Hold off on diuretics. Received Kayexalate for hyperkalemia.
--- NOTE | 2021-02-04 14:56 | P.PN ---
Subjective Progress Note Date: 02/04/21 This is an 80-year-old female who was recently admitted with COPD acute exacerbation along with acute purulent tracheobronchitis and is being closely monitored. Patient also having some fluid overload along with acute renal failure and nephrology is following. Patient received some IV doses of Lasix a nd is maintained on bronchodilators along with IV steroids and will continue at this time. White blood count elevated at 27.5, hemoglobin is 9.0, sodium is 140, potassium is 5.0, BUN is 103 and current creatinine is 3.5. Patient normally takes Coumadin although INR continues to be elevated at 3.7 and will hold today and repeat INR in the morning. Continue with Accu-Cheks and sliding scale at this time as well. 02/03/2021 Patient is seen and evaluated and follow-up continues to be sitting up in the chair continues to be dyspneic and anxious although breathing is improved and patient is maintained on 3-4 L at her baseline. Patient continues on IV steroids which have been titrated down and will switch to oral for a short prednisone taper on discharge. Nephrology along with pulmonary following. INR today is 2.9 and Coumadin has been resumed. This morning's basic labs currently pending at this time. 02/04/2021 Patient is seen in follow-up appears to be breathing slightly better maintained on 3 L via nasal cannula which is her baseline. Patient does experience dyspnea with minimal exertion and becomes very anxious once this occurs. Patient does have when necessary anxiety medications ordered. Patient also being followed by nephrology for elevated creatinine along with pulmonary. Patient was on IV steroids and will titrate to oral steroids starting tomorrow with a short taper and will repeat a.m. labs to monitor kidney functions closely. Patient is maintained on sodium bicarb tablets and was started on gentle IV hydration with normal saline and will monitor closely. A to continue with Coumadin with pharmacy to dose and INR today is 2.2. Sodium 137 with a potassium of 5.4 and will give a low-dose Kayexalate and repeat a.m. labs, BUN is 119 and creatinine worsened at 3.71. Review of systems: Constitutional: No reports of fatigue, fever, or chills, reports generalized back pain which is chronic Cardiovascular: No reports of chest pain or palpitations Respiratory: Reports continued shortness of breath GI: No reports of nausea, vomiting, or diarrhea : No reports of dysuria or retention Neurovascular: Reports generalized weakness and anxiety All medications have been reviewed Objective - Vital Signs Vital signs: Vital Signs Temp 98.0 F 02/04/21 12:21 Pulse 80 02/04/21 12:21 Resp 16 02/04/21 12:21 BP 130/75 02/04/21 12:21 Pulse Ox 97 02/04/21 12:21 Intake & Output 02/03/21 02/04/21 02/04/21 18:59 06:59 18:59 Intake Total 240 480 120 Balance 240 480 120 Weight 68 kg Intake: Oral 240 480 120 Other: # Voids 3 3 # Bowel Movements 1 - Exam Gen: This is a 80-year-old female awake, alert and oriented 3, sitting up in the chair, well-developed, well-nourished, anxious HEENT: Head is atraumatic, normocephalic. Pupils equal, round. Sclerae is anicteric. NECK: Supple. No JVD. No lymphadenopathy. No thyromegaly. LUNGS: Diminished breath sounds bilaterally with no wheezing or rhonchi noted. No intercostal retractions. HEART: S1, S2 are present ABDOMEN: Soft. Bowel sounds are present. No masses. No tenderness. EXTREMITIES: No pedal edema. No calf tenderness. NEUROLOGICAL: Patient is awake, alert and oriented x3. Diffusely weak - Labs CBC & Chem 7: 02/02/21 05:54 02/04/21 06:09 Labs: Abnormal Lab Results - Last 24 Hours (Table) 02/03/21 02/03/21 02/03/21 Range/Units 07:47 17:38 20:05 PT (9.9-11.9) sec INR (0.90-1.11) Potassium (3.5-5.1) mmol/L BUN 119.0 H* (9.0-27.0) mg/dL Creatinine 3.4 H (0.6-1.5) mg/dL Est GFR (CKD-EPI)AfAm 13.8 L (60.0-200.0) Est GFR (CKD-EPI)NonAf 11.9 L (60.0-200.0) BUN/Creatinine Ratio 35.00 H (12.00-20.00) Ratio Glucose 124 H (70-110) mg/dL POC Glucose (mg/dL) 199 H 236 H (75-99) mg/dL Magnesium (1.6-2.3) mg/dL 02/04/21 02/04/21 02/04/21 Range/Units 06:09 06:09 07:07 PT 22.8 H (9.9-11.9) sec INR 2.20 H (0.90-1.11) Potassium 5.4 H (3.5-5.1) mmol/L BUN 119 H* (9.0-27.0) mg/dL Creatinine 3.71 H (0.6-1.5) mg/dL Est GFR (CKD-EPI)AfAm (60.0-200.0) Est GFR (CKD-EPI)NonAf (60.0-200.0) BUN/Creatinine Ratio (12.00-20.00) Ratio Glucose 153 H (70-110) mg/dL POC Glucose (mg/dL) 168 H (75-99) mg/dL Magnesium 3.1 H (1.6-2.3) mg/dL 02/04/21 Range/Units 11:47 PT (9.9-11.9) sec INR (0.90-1.11) Potassium (3.5-5.1) mmol/L BUN (9.0-27.0) mg/dL Creatinine (0.6-1.5) mg/dL Est GFR (CKD-EPI)AfAm (60.0-200.0) Est GFR (CKD-EPI)NonAf (60.0-200.0) BUN/Creatinine Ratio (12.00-20.00) Ratio Glucose (70-110) mg/dL POC Glucose (mg/dL) 205 H (75-99) mg/dL Magnesium (1.6-2.3) mg/dL Assessment and Plan Assessment: Chronic obstructive pulmonary disease acute exacerbation with acute purulent t racheobronchitis with hypoxic respiratory failure, present on admission Increased white blood count Mild fluid overload Acute renal failure with acute prerenal acute tubular necrosis Chronic kidney disease stage III baseline possibly Change in mental status, acute metabolic encephalopathy, multifactorial, improved Anemia, normocytic anemia of chronic disease Hyponatremia Dehydration, present on admission hypercalcemia, present on admission History of newly diagnosed lung cancer not receiving any treatment History of atrial fibrillation chronic history of DVT hypertension Anxiety Hyperlipidemia Hypothyroidism No code, no CPR, no vent Plan: Continue with current medications and bronchodilators and steroids have been transitioned to oral steroids starting tomorrow. Pulmonary and nephrology following and creatinine continues to be elevated . Patient maintained on sodium bicarb tablets. Continue gentle IV hydration. Potassium elevated slightly at 5.4 and will give a small dose of Kayexalate and repeat labs. Coumadin resumed. Will discuss with case management and social work about discharge planning and any needs in the home. Patient lives with her daughter who is her creative writer. Patient is mostly room confined requiring a commode as she is unable to make it to the bathroom in time due to weakness and COPD. Will repeat a.m. labs and continue to monitor closely.
[2021-02-04] MEDS: SODIUM CHLORIDE 0.9% 1,000 ML IV SCH (14:59)
[2021-02-04 17:09] LABS: Glucose,Whole Blood 253 mg/dL (75-99)
[2021-02-04] MEDS ORDERED: WARFARIN 2 MG TAB PO ONE (18:00)
[2021-02-04 20:25] LABS: Glucose,Whole Blood 223 mg/dL (75-99)
[2021-02-04] MEDS: HYDROcodone/APAP 7.5-325MG 1 EACH TAB PO SCH (20:43)
[2021-02-05] MEDS: SODIUM CHLORIDE 0.9% 1,000 ML IV SCH ×2 (03:38→15:59)
[2021-02-05 06:05] LABS: African American GFR (CKD) 13 (>60 ml/min/1.73 sqM); Anion Gap 5 mmol/L; Calcium 9.8 mg/dL (8.4-10.2); Carbon Dioxide 29 mmol/L (22-30); Chloride 104 mmol/L (98-107); Glucose 94 mg/dL (74-99); Non-African American GFR(CKD) 11 (>60 ml/min/1.73 sqM); Sodium 138 mmol/L (137-145)
[2021-02-05 06:40] LABS: Blood Urea Nitrogen 118 mg/dL (7-17)
[2021-02-05 07:03] LABS: Glucose,Whole Blood 108 mg/dL (75-99)
[2021-02-05] MEDS: BUDESONIDE 1 MG/2 ML NEBU INHALATION SCH ×2 (07:16→19:49)
[2021-02-05] MEDS: IPRATROPIUM-ALBUTEROL 3 ML NEB INHALATION SCH ×4 (07:16→19:49)
[2021-02-05] MEDS: FORMOTEROL FUMARATE 20 MCG/2 ML NEBU INHALATION SCH ×2 (07:16→20:00)
[2021-02-05] MEDS: INSULIN ASPART (NovoLOG) 100 UNIT/ML VIAL SQ SCH ×4 (08:35→21:19)
[2021-02-05] MEDS: FERROUS SULFATE 325 MG TAB PO SCH (08:37)
[2021-02-05] MEDS: VIT A,C & E-LUTEIN-MINERALS 1 EACH TAB PO SCH (08:37)
[2021-02-05] MEDS: predniSONE 20 MG TAB PO SCH (08:37)
[2021-02-05] MEDS: SENNOSIDES 8.6 MG TAB PO SCH (08:37)
[2021-02-05] MEDS: SODIUM BICARBONATE TAB 650 MG TAB PO SCH ×3 (08:38→21:19)
[2021-02-05 09:24] LABS: INR 2.34 (0.90-1.11); Prothrombin Time 24.1 sec (9.9-11.9)
[2021-02-05 11:12] LABS: Glucose,Whole Blood 160 mg/dL (75-99)
--- NOTE | 2021-02-05 14:08 | P.PN ---
Subjective Progress Note Date: 02/05/21 Principal diagnosis: COPD exacerbation 80-year-old female, well-known to our service. The patient has history of COPD, lung cancer. Currently, the patient comes into the emergency room, on January 27, complaining of increasing shortness of breath, chest congestion, coughing, and wheezing. She denied any chest pain or pressure. She denied any fever or chills. The patient denied abdominal pain, nausea, vomiting, diarrhea, and genitourinary complaints. He was seen in the ER, and admitted with a diagnosis of COPD exacerbation, and mental status changes. Chest x-ray is positive for some chronic changes but nothing acute. In April 2019, she was diagnosed with non-small cell lung cancer, squamous cell type. She was last in the hospital in September,. White count 12.6, hemoglobin 9.1, hematocrit 28.0, and platelet count was 363,000. PT 21.6, INR 2.2, and PTT is 35.4. Sodium 133, potassium 4.9, chlorides 101, CO2 26, anion gap 6, BUN 62, creatinine 2.82. Coronavirus testing was negative. She is currently on 4 L nasal cannula, and getting saline at 75 mL an hour. On 01/30/2020 the patient is seen in follow-up on medical floor, she is sitting up in the chair, appears to be in no acute distress, she is on 4 L of oxygen, she is awake and alert, oriented 3, still complaining of shortness of breath especially with exertion, but appears to be in no respiratory distress. Current pulse ox on 4 L of oxygen is 96%, she's been afebrile, hemodynamically she s table, her admission chest x-ray has been reviewed showing chronic changes with no new or worsened acute cardiopulmonary process. Today's labs show no evidence of leukocytosis, white blood cell count is 6.5, hemoglobin is 8.6, INR today is 3.1, electrolytes were unremarkable, BUN was 75, creatinine was 3.4, and her renal function has worsened since admission, the patient remains on IV hydration with 0.9 normal saline at rate of 75 ML per hour, she remains on oral antibiotics in the form of Omnicef, she did bring treatments and IV steroids for acute exacerbation of COPD The patient is seen today 01/31/2020 in follow-up on the regular medical floor. She is currently sitting up in bed. Awake and alert in no acute distress. She is doing a bit better today compared to yesterday. She is on 4 L/m per nasal cannula to maintain O2 saturation in the 90s. Blood cultures reveal no growth. Blood glucose 203. Continued on DuoNeb inhalations, Pulmicort and Perforomist inhalations, IV Solu-Medrol. Empiric antibiotics in the form of Omnicef. Anticoagulated with warfarin. On 01/31/2021 patient seen in follow-up on medical surgical floor. Breathing very comfortably, she is up in the chair, looks very stable, 2 L of oxygen, off oxygen 98%, this can probably be weaned off completely, no fever or chills, hemodynamically patient is stable, her lung sounds are clear on today's exam, 0.9 normal saline is infusing at 75 ML per hour, no other drips. Today's labs have been reviewed, white blood cell count is 10.2, hemoglobin is 8.1, INR today is 3.2, electrolytes were within normal limits, B1 is 90 creatinine is 3.4, renal profile slightly improved. No acute events overnight, no nausea vomiting or diarrhea. Progress note dated 02/01/2021. 80-year-old female with a history of COPD exacerbation, and lung cancer. Currently, the patient's feeling a bit more short of breath this morning. She is on 3 L nasal cannula. Saturations are in the low 90s. The patient denies any cough, wheezing, or phlegm production. The patient has made herself a no code. She was recently diagnosed with lung cancer, status post right lower lobectomy. It was non-small cell lung cancer, squamous cell type. She denies any fever or chills. She denies any nausea, vomiting, or diarrhea. She is h aving some difficulty with swallowing. This has been more of a chronic problem. No new labs to report. Chest x-ray shows chronic emphysematous and pulmonary fibrotic changes, with cardiomegaly, and small bilateral pleural effusions. There is no significant change compared to an x-ray done 6 days prior. The patient is seen today 02/02/2021 follow-up on the regular medical floor. She is sitting up in a chair at the bedside. Awake and alert in no acute distress. Maintaining O2 saturations up to 100% on 4 L/m per nasal cannula. No worsening shortness of breath, cough or congestion. Blood cultures reveal no growth. White count 27.5. Hemoglobin 9.0. INR 3.7. Sodium 140. Potassium 5 .0. BUN 103. Creatinine 3.5. Glucose 145. She remains on DuoNeb inhalations, Pulmicort and Perforomist inhalations, IV Solu-Medrol. She was given an additional Lasix today as well. The patient is seen today 02/03/2021 in follow-up on the regular medical floor. Currently sitting up in a chair at the bedside. Awake and alert in no acute distress. She is maintaining O2 saturations in the high 90s on 3 L/m per nasal cannula. She's afebrile. Hemodynamically stable. Blood cultures reveal no growth. INR 2.9. Glucose 218. She remains on DuoNeb inhalations, Pulmicort and Perforomist inhalations, IV Solu-Medrol. Anticoagulated with warfarin. Patient is seen today 02/05/2021 follow-up on the regular medical floor. She is awake and alert in no acute distress. Sitting up in a chair at the bedside. She is currently on 3 L/m per nasal cannula maintaining O2 saturation in the 90s. 0.9 normal saline at 75 ML's per hour. She denies any worsening shortness of breath, cough or congestion. Her only complaint today is that she is hungry. INR 2.34. Sodium 138. Potassium 5.0. BUN 118. Creatinine 3.68. Nephrology is on the case. She remains on DuoNeb inhalations, Pulmicort and Perforomist inhalations, prednisone. Objective - Vital Signs Vital signs: Vital Signs Temp 98.0 F 02/05/21 11:56 Pulse 89 02/05/21 11:56 Resp 28 H 02/05/21 08:00 BP 127/61 02/05/21 11:56 Pulse Ox 97 02/05/21 11:56 Intake & Output 02/04/21 02/05/21 02/05/21 18:59 06:59 18:59 Intake Total 120 1220 Balance 120 1220 Intake: Intake, IV Titration 900 Amount Sodium Chloride 0.9% 1, 900 000 ml @ 75 mls/hr IV . [id number] [facility] Rx#:[id number] Oral 120 320 Other: Voiding Method Bedside Commode # Voids 2 - Exam GENERAL EXAM: Alert, 80-year-old female patient, on 3 L nasal cannula, up in a chair, comfortable in no apparent distress. HEAD: Normocephalic. EYES: Normal reaction of pupils, equal size. NOSE: Clear with pink turbinates. THROAT: No erythema or exudates. NECK: No masses, no JVD. CHEST: No chest wall deformity. LUNGS: Equal air entry with faint end expiratory wheeze, diminished. CVS: S1 and S2 normal with no audible murmur, regular rhythm. ABDOMEN: No hepatosplenomegaly, normal bowel sounds, no guarding or rigidity. SPINE: No scoliosis or deformity SKIN: No rashes CENTRAL NERVOUS SYSTEM: No focal deficits, tone is normal in all 4 extremities. EXTREMITIES: There is no peripheral edema. No clubbing, no cyanosis. Peripheral pulses are intact. - Labs CBC & Chem 7: 02/02/21 05:54 02/05/21 04:50 Labs: Abnormal Lab Results - Last 24 Hours (Table) 02/04/21 02/04/21 02/05/21 Range/Units 17:08 20:23 04:50 PT 24.1 H (9.9-11.9) sec INR 2.34 H (0.90-1.11) BUN (7-17) mg/dL Creatinine (0.52-1.04) mg/dL POC Glucose (mg/dL) 253 H 223 H (75-99) mg/dL 02/05/21 02/05/21 02/05/21 Range/Units 04:50 07:02 11:10 PT (9.9-11.9) sec INR (0.90-1.11) BUN 118 H* (7-17) mg/dL Creatinine 3.68 H (0.52-1.04) mg/dL POC Glucose (mg/dL) 108 H 160 H (75-99) mg/dL Assessment and Plan Assessment: 1 Acute exacerbation of COPD, no evidence of pneumonia on the chest x-ray and patient tested negative for COVID-19 2 Acute kidney injury related to decreased oral intake, and dehydration 3 Chronic kidney disease stage III 4 History of lung cancer status post lobectomy 5 History of COPD 6 Chronic atrial fibrillation, anticoagulated with warfarin Plan: The patient was seen and evaluated by Dr. Mendez Continue bronchodilators Continue prednisone Discharge planning in place We'll continue to follow I, the cosigning physician, performed a history & physical examination of the pa tient. Lungs sounds with faint end expiratory wheeze. Maintaining good O2 saturations in the 90s on 3 L/m per nasal cannula I discussed the assessment and plan of care with my nurse practitioner, Renetta Chambers. I attest to the above note as dictated by her.
--- NOTE | 2021-02-05 14:31 | P.PN ---
Subjective Progress Note Date: 02/05/21 Follow-up for acute kidney injury. Denies any chest pain shortness of breath palpitations. Objective - Vital Signs Vital signs: Vital Signs Temp 98.0 F 02/05/21 11:56 Pulse 89 02/05/21 11:56 Resp 28 H 02/05/21 08:00 BP 127/61 02/05/21 11:56 Pulse Ox 97 02/05/21 11:56 Intake & Output 02/04/21 02/05/21 02/05/21 18:59 06:59 18:59 Intake Total 120 1220 Balance 120 1220 Intake: Intake, IV Titration 900 Amount Sodium Chloride 0.9% 1, 900 000 ml @ 75 mls/hr IV . [id number] [facility] Rx#:[id number] Oral 120 320 Other: Voiding Method Bedside Commode # Voids 2 - Exam No acute distress S1-S2 heard Decreased breath sounds Trace edema - Labs CBC & Chem 7: 02/02/21 05:54 02/05/21 04:50 Labs: Abnormal Lab Results - Last 24 Hours (Table) 02/04/21 02/04/21 02/05/21 Range/Units 17:08 20:23 04:50 PT 24.1 H (9.9-11.9) sec INR 2.34 H (0.90-1.11) BUN (7-17) mg/dL Creatinine (0.52-1.04) mg/dL POC Glucose (mg/dL) 253 H 223 H (75-99) mg/dL 02/05/21 02/05/21 02/05/21 Range/Units 04:50 07:02 11:10 PT (9.9-11.9) sec INR (0.90-1.11) BUN 118 H* (7-17) mg/dL Creatinine 3.68 H (0.52-1.04) mg/dL POC Glucose (mg/dL) 108 H 160 H (75-99) mg/dL Assessment and Plan Assessment: #1 acute kidney injury secondary to hemodynamic ATN. Renal function stable. #2 chronic kidney disease stage IV suspect nephrosclerosis with a baseline creatinine of 2.0-2.3 MG per DL. #3 anemia with chronic kidney disease #4 metabolic bone disease #5 hypertension with chronic kidney disease Plan: #1 function stable continue with IV fluids. #2 no acute indication for renal replacement therapy at this time. #3 avoid nephrotoxic agents.
[2021-02-05 17:16] LABS: Glucose,Whole Blood 182 mg/dL (75-99)
[2021-02-05] MEDS ORDERED: WARFARIN 2 MG TAB PO ONE (18:00)
[2021-02-05 20:11] LABS: Glucose,Whole Blood 303 mg/dL (75-99)
[2021-02-05] MEDS: HYDROcodone/APAP 7.5-325MG 1 EACH TAB PO SCH (21:19)
[2021-02-06] MEDS: FORMOTEROL FUMARATE 20 MCG/2 ML NEBU INHALATION SCH ×2 (06:57→19:54)
[2021-02-06] MEDS: IPRATROPIUM-ALBUTEROL 3 ML NEB INHALATION SCH ×4 (06:57→19:42)
[2021-02-06] MEDS: BUDESONIDE 1 MG/2 ML NEBU INHALATION SCH ×2 (06:57→19:42)
[2021-02-06 07:20] LABS: Glucose,Whole Blood 101 mg/dL (75-99)
[2021-02-06] MEDS: INSULIN ASPART (NovoLOG) 100 UNIT/ML VIAL SQ SCH ×4 (08:17→20:44)
[2021-02-06 08:24] LABS: Anisocytosis Slight; Basophils % (A) 0 %; Eosinophils % (A) 0 %; HCT 26.9 % (34.0-46.0); HGB 8.6 gm/dL (11.4-16.0); Hypochromasia Moderate; Lymphocytes # (A) 0.6 k/uL (1.0-4.8); Lymphocytes % (A) 4 %; MCHC 31.8 g/dL (31.0-37.0); MCV 97.5 fL (80.0-100.0); Macrocytosis Slight; Mean Platelet Volume 8.4; Monocytes # (A) 0.8 k/uL (0-1.0); Monocytes % (A) 5 %; Neutrophils # (A) 14.8 k/uL (1.3-7.7); Neutrophils % (A) 91 %; Platelet Count 297 k/uL (150-450); RBC 2.76 m/uL (3.80-5.40); RDW 16.4 % (11.5-15.5); WBC 16.3 k/uL (3.8-10.6)
[2021-02-06 08:29] LABS: ALT 22 U/L (4-34); AST 19 U/L (14-36); African American GFR (CKD) 15 (>60 ml/min/1.73 sqM); Albumin 2.6 g/dL (3.5-5.0); Albumin/Globulin Ratio 0.9; Alkaline Phosphatase 39 U/L (38-126); Anion Gap 5 mmol/L; Calcium 9.4 mg/dL (8.4-10.2); Carbon Dioxide 27 mmol/L (22-30); Chloride 107 mmol/L (98-107); Globulin 2.8 g/dL; Glucose 98 mg/dL (74-99); Non-African American GFR(CKD) 13 (>60 ml/min/1.73 sqM); Potassium 4.9 mmol/L (3.5-5.1); Sodium 139 mmol/L (137-145); Total Bilirubin 0.6 mg/dL (0.2-1.3); Total Protein 5.4 g/dL (6.3-8.2)
[2021-02-06 08:31] LABS: Blood Urea Nitrogen 117 mg/dL (7-17)
[2021-02-06] MEDS: VIT A,C & E-LUTEIN-MINERALS 1 EACH TAB PO SCH (09:00)
[2021-02-06] MEDS: predniSONE 20 MG TAB PO SCH (09:00)
[2021-02-06] MEDS: SODIUM BICARBONATE TAB 650 MG TAB PO SCH ×3 (09:01→20:17)
[2021-02-06] MEDS: SODIUM CHLORIDE 0.9% 1,000 ML IV SCH ×2 (09:01→20:44)
[2021-02-06] MEDS: FERROUS SULFATE 325 MG TAB PO SCH (09:01)
[2021-02-06] MEDS: SENNOSIDES 8.6 MG TAB PO SCH (09:01)
[2021-02-06 09:52] LABS: Prothrombin Time 20.8 sec (9.9-11.9)
[2021-02-06] MEDS: ALPRAZolam 0.25 MG TAB PO PRN (11:18)
[2021-02-06 11:33] LABS: Glucose,Whole Blood 117 mg/dL (75-99)
--- NOTE | 2021-02-06 12:19 | P.PN ---
Subjective Progress Note Date: 02/05/21 Principal diagnosis: Chronic obstructive pulmonary disease acute exacerbation with acute purulent tracheobronchitis with hypoxic respiratory failure Acute renal failure with acute prerenal acute tubular necrosis Acute metabolic encephalopathy 80-year-old female who was recently admitted with COPD acute exacerbation along with acute purulent tracheobronchitis and is being closely monitored. Patient also having some fluid overload along with acute renal failure and nephrology is following. Patient received some IV doses of Lasix and is maintained on bronchodilators along with IV steroids and will continue at this time. White blood count elevated at 27.5, hemoglobin is 9.0, sodium is 140, potassium is 5.0, BUN is 103 and current creatinine is 3.5. Patient normally takes Coumadin although INR continues to be elevated at 3.7 and will hold today and repeat INR in the morning. Continue with Accu-Cheks and sliding scale at this time as well. 02/05/2021 Patient is seen and evaluated for follow-up on the regular medical floor. She is awake and alert in no acute distress. Sitting up in a chair at the bedside. Remains on 3 L/m per nasal cannula maintaining O2 saturation in the 90s. 0.9 normal saline at 75 ML's per hour. She denies any worsening shortness of breath, cough or congestion. Her only complaint today is that she is hungry. Laboratory review shows INR 2.34. Sodium 138. Potassium 5.0. BUN 118. Creatinine 3.68. Nephrology is on the case and recommending to continue with IV fluids; no indication for renal replacement therapy at this time. Patient remains on DuoNeb inhalations, Pulmicort and Perforomist inhalations, prednisone. Objective - Vital Signs Vital signs: Vital Signs Temp 98.0 F 02/05/21 11:56 Pulse 89 02/05/21 11:56 Resp 28 H 02/05/21 08:00 BP 127/61 02/05/21 11:56 Pulse Ox 97 02/05/21 11:56 Intake & Output 02/04/21 02/05/21 02/05/21 18:59 06:59 18:59 Intake Total 120 1220 Balance 120 1220 Intake: Intake, IV Titration 900 Amount Sodium Chloride 0.9% 1, 900 000 ml @ 75 mls/hr IV . [id number] [facility] Rx#:[id number] Oral 120 320 Other: Voiding Method Bedside Commode # Voids 2 - Exam Gen: This is a 80-year-old female awake, alert and oriented 3, sitting up in the chair, well-developed, well-nourished, anxious HEENT: Head is atraumatic, normocephalic. Pupils equal, round. Sclerae is anicteric. NECK: Supple. No JVD. No lymphadenopathy. No thyromegaly. LUNGS: Diminished breath sounds bilaterally with no wheezing or rhonchi noted. No intercostal retractions. HEART: S1, S2 are present ABDOMEN: Soft. Bowel sounds are present. No masses. No tenderness. EXTREMITIES: No pedal edema. No calf tenderness. NEUROLOGICAL: Patient is awake, alert and oriented x3. Diffusely weak - Labs CBC & Chem 7: 02/06/21 05:44 02/06/21 05:44 Labs: Abnormal Lab Results - Last 24 Hours (Table) 02/04/21 02/04/21 02/05/21 Range/Units 17:08 20:23 04:50 PT 24.1 H (9.9-11.9) sec INR 2.34 H (0.90-1.11) BUN (7-17) mg/dL Creatinine (0.52-1.04) mg/dL POC Glucose (mg/dL) 253 H 223 H (75-99) mg/dL 02/05/21 02/05/21 02/05/21 Range/Units 04:50 07:02 11:10 PT (9.9-11.9) sec INR (0.90-1.11) BUN 118 H* (7-17) mg/dL Creatinine 3.68 H (0.52-1.04) mg/dL POC Glucose (mg/dL) 108 H 160 H (75-99) mg/dL Assessment and Plan Assessment: Chronic obstructive pulmonary disease acute exacerbation with acute purulent tracheobronchitis with hypoxic respiratory failure, present on admission Increased white blood count Mild fluid overload Acute renal failure with acute prerenal acute tubular necrosis Chronic kidney disease stage III baseline possibly Change in mental status, acute metabolic encephalopathy, multifactorial, improved Anemia, normocytic anemia of chronic disease Hyponatremia Dehydration, present on admission hypercalcemia, present on admission History of newly diagnosed lung cancer not receiving any treatment History of atrial fibrillation chronic history of DVT hypertension Anxiety Hyperlipidemia Hypothyroidism No code, no CPR, no vent Plan: Continue with current medications and bronchodilators and steroids have been transitioned to oral steroids starting tomorrow. Pulmonary and nephrology following and creatinine continues to be elevated . Patient maintained on sodium bicarb tablets. Continue gentle IV hydration. Potassium elevated slightly at 5.4 and will give a small dose of Kayexalate and repeat labs. Coumadin resumed. Will discuss with case management and social work about discharge planning and any needs in the home. Patient lives with her daughter who is her hosting engineer. Patient is mostly room confined requiring a commode as she is unable to make it to the bathroom in time due to weakness and COPD. Will repeat a.m. labs and continue to monitor closely.
--- NOTE | 2021-02-06 12:51 | P.PN ---
Subjective Progress Note Date: 02/06/21 Principal diagnosis: COPD exacerbation 80-year-old female, well-known to our service. The patient has history of COPD, lung cancer. Currently, the patient comes into the emergency room, on January 27, complaining of increasing shortness of breath, chest congestion, coughing, and wheezing. She denied any chest pain or pressure. She denied any fever or chills. The patient denied abdominal pain, nausea, vomiting, diarrhea, and genitourinary complaints. He was seen in the ER, and admitted with a diagnosis of COPD exacerbation, and mental status changes. Chest x-ray is positive for some chronic changes but nothing acute. In April 2019, she was diagnosed with non-small cell lung cancer, squamous cell type. She was last in the hospital in September,. White count 12.6, hemoglobin 9.1, hematocrit 28.0, and platelet count was 363,000. PT 21.6, INR 2.2, and PTT is 35.4. Sodium 133, potassium 4.9, chlorides 101, CO2 26, anion gap 6, BUN 62, creatinine 2.82. Coronavirus testing was negative. She is currently on 4 L nasal cannula, and getting saline at 75 mL an hour. On 01/30/2020 the patient is seen in follow-up on medical floor, she is sitting up in the chair, appears to be in no acute distress, she is on 4 L of oxygen, she is awake and alert, oriented 3, still complaining of shortness of breath especially with exertion, but appears to be in no respiratory distress. Current pulse ox on 4 L of oxygen is 96%, she's been afebrile, hemodynamically she s table, her admission chest x-ray has been reviewed showing chronic changes with no new or worsened acute cardiopulmonary process. Today's labs show no evidence of leukocytosis, white blood cell count is 6.5, hemoglobin is 8.6, INR today is 3.1, electrolytes were unremarkable, BUN was 75, creatinine was 3.4, and her renal function has worsened since admission, the patient remains on IV hydration with 0.9 normal saline at rate of 75 ML per hour, she remains on oral antibiotics in the form of Omnicef, she did bring treatments and IV steroids for acute exacerbation of COPD The patient is seen today 01/31/2020 in follow-up on the regular medical floor. She is currently sitting up in bed. Awake and alert in no acute distress. She is doing a bit better today compared to yesterday. She is on 4 L/m per nasal cannula to maintain O2 saturation in the 90s. Blood cultures reveal no growth. Blood glucose 203. Continued on DuoNeb inhalations, Pulmicort and Perforomist inhalations, IV Solu-Medrol. Empiric antibiotics in the form of Omnicef. Anticoagulated with warfarin. On 01/31/2021 patient seen in follow-up on medical surgical floor. Breathing very comfortably, she is up in the chair, looks very stable, 2 L of oxygen, off oxygen 98%, this can probably be weaned off completely, no fever or chills, hemodynamically patient is stable, her lung sounds are clear on today's exam, 0.9 normal saline is infusing at 75 ML per hour, no other drips. Today's labs have been reviewed, white blood cell count is 10.2, hemoglobin is 8.1, INR today is 3.2, electrolytes were within normal limits, B1 is 90 creatinine is 3.4, renal profile slightly improved. No acute events overnight, no nausea vomiting or diarrhea. Progress note dated 02/01/2021. 80-year-old female with a history of COPD exacerbation, and lung cancer. Currently, the patient's feeling a bit more short of breath this morning. She is on 3 L nasal cannula. Saturations are in the low 90s. The patient denies any cough, wheezing, or phlegm production. The patient has made herself a no code. She was recently diagnosed with lung cancer, status post right lower lobectomy. It was non-small cell lung cancer, squamous cell type. She denies any fever or chills. She denies any nausea, vomiting, or diarrhea. She is h aving some difficulty with swallowing. This has been more of a chronic problem. No new labs to report. Chest x-ray shows chronic emphysematous and pulmonary fibrotic changes, with cardiomegaly, and small bilateral pleural effusions. There is no significant change compared to an x-ray done 6 days prior. The patient is seen today 02/02/2021 follow-up on the regular medical floor. She is sitting up in a chair at the bedside. Awake and alert in no acute distress. Maintaining O2 saturations up to 100% on 4 L/m per nasal cannula. No worsening shortness of breath, cough or congestion. Blood cultures reveal no growth. White count 27.5. Hemoglobin 9.0. INR 3.7. Sodium 140. Potassium 5 .0. BUN 103. Creatinine 3.5. Glucose 145. She remains on DuoNeb inhalations, Pulmicort and Perforomist inhalations, IV Solu-Medrol. She was given an additional Lasix today as well. The patient is seen today 02/03/2021 in follow-up on the regular medical floor. Currently sitting up in a chair at the bedside. Awake and alert in no acute distress. She is maintaining O2 saturations in the high 90s on 3 L/m per nasal cannula. She's afebrile. Hemodynamically stable. Blood cultures reveal no growth. INR 2.9. Glucose 218. She remains on DuoNeb inhalations, Pulmicort and Perforomist inhalations, IV Solu-Medrol. Anticoagulated with warfarin. Patient is seen today 02/05/2021 follow-up on the regular medical floor. She is awake and alert in no acute distress. Sitting up in a chair at the bedside. She is currently on 3 L/m per nasal cannula maintaining O2 saturation in the 90s. 0.9 normal saline at 75 ML's per hour. She denies any worsening shortness of breath, cough or congestion. Her only complaint today is that she is hungry. INR 2.34. Sodium 138. Potassium 5.0. BUN 118. Creatinine 3.68. Nephrology is on the case. She remains on DuoNeb inhalations, Pulmicort and Perforomist inhalations, prednisone. The patient is seen today 02/06/2021 follow-up on the regular medical floor. Currently sitting up in a chair at the bedside. Awake and alert in no acute distress. No worsening shortness of breath, cough or congestion. Continue good O2 saturations up to 98% on 4 L/m per nasal cannula. She's been afebrile. Hemodynamically stable. All cultures reveal no growth. White count 16.3. Hemoglobin 8.6. INR 2.00. Sodium 139. Potassium 4.9. BUN 117. Creatinine 3.24. Nephrology is on the case. No plans for renal replacement therapy at this point Objective - Vital Signs Vital signs: Vital Signs Temp 97.9 F 02/06/21 12:20 Pulse 60 02/06/21 12:20 Resp 24 02/06/21 08:35 BP 118/71 02/06/21 12:20 Pulse Ox 98 02/06/21 12:20 Intake & Output 02/05/21 02/06/21 02/06/21 18:59 06:59 18:59 Intake Total 590 Balance 590 Intake: Oral 590 Other: Voiding Method Bedside Commode Bedside Commode Bedside Commode # Voids 3 - Exam GENERAL EXAM: Alert, 80-year-old female patient, on 4 L nasal cannula, up in a chair, comfortable in no apparent distress. HEAD: Normocephalic. EYES: Normal reaction of pupils, equal size. NOSE: Clear with pink turbinates. THROAT: No erythema or exudates. NECK: No masses, no JVD. CHEST: No chest wall deformity. LUNGS: Equal air entry with faint end expiratory wheeze, diminished. CVS: S1 and S2 normal with no audible murmur, regular rhythm. ABDOMEN: No hepatosplenomegaly, normal bowel sounds, no guarding or rigidity. SPINE: No scoliosis or deformity SKIN: No rashes CENTRAL NERVOUS SYSTEM: No focal deficits, tone is normal in all 4 extremities. EXTREMITIES: There is no peripheral edema. No clubbing, no cyanosis. Peripheral pulses are intact. - Labs CBC & Chem 7: 02/06/21 05:44 02/06/21 05:44 Labs: Abnormal Lab Results - Last 24 Hours (Table) 02/05/21 02/05/21 02/06/21 Range/Units 17:14 20:09 05:44 WBC (3.8-10.6) k/uL RBC (3.80-5.40) m/uL Hgb (11.4-16.0) gm/dL Hct (34.0-46.0) % RDW (11.5-15.5) % Neutrophils # (1.3-7.7) k/uL Lymphocytes # (1.0-4.8) k/uL PT 20.8 H (9.9-11.9) sec INR 2.00 H (0.90-1.11) BUN (7-17) mg/dL Creatinine (0.52-1.04) mg/dL POC Glucose (mg/dL) 182 H 303 H (75-99) mg/dL Total Protein (6.3-8.2) g/dL Albumin (3.5-5.0) g/dL 02/06/21 02/06/21 02/06/21 Range/Units 05:44 05:44 07:19 WBC 16.3 H (3.8-10.6) k/uL RBC 2.76 L (3.80-5.40) m/uL Hgb 8.6 L (11.4-16.0) gm/dL Hct 26.9 L (34.0-46.0) % RDW 16.4 H (11.5-15.5) % Neutrophils # 14.8 H (1.3-7.7) k/uL Lymphocytes # 0.6 L (1.0-4.8) k/uL PT (9.9-11.9) sec INR (0.90-1.11) BUN 117 H* (7-17) mg/dL Creatinine 3.24 H (0.52-1.04) mg/dL POC Glucose (mg/dL) 101 H (75-99) mg/dL Total Protein 5.4 L (6.3-8.2) g/dL Albumin 2.6 L (3.5-5.0) g/dL 02/06/21 Range/Units 11:32 WBC (3.8-10.6) k/uL RBC (3.80-5.40) m/uL Hgb (11.4-16.0) gm/dL Hct (34.0-46.0) % RDW (11.5-15.5) % Neutrophils # (1.3-7.7) k/uL Lymphocytes # (1.0-4.8) k/uL PT (9.9-11.9) sec INR (0.90-1.11) BUN (7-17) mg/dL Creatinine (0.52-1.04) mg/dL POC Glucose (mg/dL) 117 H (75-99) mg/dL Total Protein (6.3-8.2) g/dL Albumin (3.5-5.0) g/dL Assessment and Plan Assessment: 1 Acute exacerbation of COPD, no evidence of pneumonia on the chest x-ray and patient tested negative for COVID-19 2 Acute kidney injury related to decreased oral intake, and dehydration, no plans for renal replacement therapy at this point. 3 Chronic kidney disease stage III 4 History of lung cancer status post lobectomy 5 History of COPD 6 Chronic atrial fibrillation, anticoagulated with warfarin Plan: The patient was seen and evaluated by Dr. Mendez Labs reviewed Stable from the pulmonary standpoint Continue bronchodilators Continue prednisone Discharge planning in place I, the cosigning physician, performed a history & physical examination of the patient. Lungs sounds with faint end expiratory wheeze. Maintaining good O2 saturations in the 90s on 4 L/m per nasal cannula I discussed the assessment and plan of care with my nurse practitioner, Renetta Chambers. I attest to the above note as dictated by her.
--- NOTE | 2021-02-06 15:15 | P.PN ---
Subjective Progress Note Date: 02/06/21 Follow-up for acute kidney injury. Denies any chest pain shortness of breath palpitations. Objective - Vital Signs Vital signs: Vital Signs Temp 97.9 F 02/06/21 12:20 Pulse 60 02/06/21 12:20 Resp 24 02/06/21 08:35 BP 118/71 02/06/21 12:20 Pulse Ox 98 02/06/21 12:20 Intake & Output 02/05/21 02/06/21 02/06/21 18:59 06:59 18:59 Intake Total 590 Balance 590 Intake: Oral 590 Other: Voiding Method Bedside Commode Bedside Commode Bedside Commode # Voids 3 - Exam No acute distress S1-S2 heard Decreased breath sounds Trace edema - Labs CBC & Chem 7: 02/06/21 05:44 02/06/21 05:44 Labs: Abnormal Lab Results - Last 24 Hours (Table) 02/05/21 02/05/21 02/06/21 Range/Units 17:14 20:09 05:44 WBC (3.8-10.6) k/uL RBC (3.80-5.40) m/uL Hgb (11.4-16.0) gm/dL Hct (34.0-46.0) % RDW (11.5-15.5) % Neutrophils # (1.3-7.7) k/uL Lymphocytes # (1.0-4.8) k/uL PT 20.8 H (9.9-11.9) sec INR 2.00 H (0.90-1.11) BUN (7-17) mg/dL Creatinine (0.52-1.04) mg/dL POC Glucose (mg/dL) 182 H 303 H (75-99) mg/dL Total Protein (6.3-8.2) g/dL Albumin (3.5-5.0) g/dL 02/06/21 02/06/21 02/06/21 Range/Units 05:44 05:44 07:19 WBC 16.3 H (3.8-10.6) k/uL RBC 2.76 L (3.80-5.40) m/uL Hgb 8.6 L (11.4-16.0) gm/dL Hct 26.9 L (34.0-46.0) % RDW 16.4 H (11.5-15.5) % Neutrophils # 14.8 H (1.3-7.7) k/uL Lymphocytes # 0.6 L (1.0-4.8) k/uL PT (9.9-11.9) sec INR (0.90-1.11) BUN 117 H* (7-17) mg/dL Creatinine 3.24 H (0.52-1.04) mg/dL POC Glucose (mg/dL) 101 H (75-99) mg/dL Total Protein 5.4 L (6.3-8.2) g/dL Albumin 2.6 L (3.5-5.0) g/dL 02/06/21 Range/Units 11:32 WBC (3.8-10.6) k/uL RBC (3.80-5.40) m/uL Hgb (11.4-16.0) gm/dL Hct (34.0-46.0) % RDW (11.5-15.5) % Neutrophils # (1.3-7.7) k/uL Lymphocytes # (1.0-4.8) k/uL PT (9.9-11.9) sec INR (0.90-1.11) BUN (7-17) mg/dL Creatinine (0.52-1.04) mg/dL POC Glucose (mg/dL) 117 H (75-99) mg/dL Total Protein (6.3-8.2) g/dL Albumin (3.5-5.0) g/dL Assessment and Plan Assessment: #1 acute kidney injury secondary to hemodynamic ATN. Renal function stable. #2 chronic kidney disease stage IV suspect nephrosclerosis with a baseline creatinine of 2.0-2.3 MG per DL. #3 anemia with chronic kidney disease #4 metabolic bone disease #5 hypertension with chronic kidney disease Plan: #1 function stable continue with IV fluids. #2 no acute indication for renal replacement therapy at this time. #3 avoid nephrotoxic agents.
[2021-02-06 17:22] LABS: Glucose,Whole Blood 203 mg/dL (75-99)
[2021-02-06] MEDS ORDERED: WARFARIN 2.5 MG TAB PO ONE (18:00)
[2021-02-06] MEDS: HYDROcodone/APAP 7.5-325MG 1 EACH TAB PO SCH (20:17)
[2021-02-06 20:40] LABS: Glucose,Whole Blood 243 mg/dL (75-99)
--- NOTE | 2021-02-07 03:00 | P.PN ---
Subjective Progress Note Date: 02/06/21 Principal diagnosis: Chronic obstructive pulmonary disease acute exacerbation with acute purulent tracheobronchitis with hypoxic respiratory failure Acute renal failure with acute prerenal acute tubular necrosis Acute metabolic encephalopathy 80-year-old female who was recently admitted with COPD acute exacerbation along with acute purulent tracheobronchitis and is being closely monitored. Patient also having some fluid overload along with acute renal failure and nephrology is following. Patient received some IV doses of Lasix and is maintained on bronchodilators along with IV steroids and will continue at this time. White blood count elevated at 27.5, hemoglobin is 9.0, sodium is 140, potassium is 5.0, BUN is 103 and current creatinine is 3.5. Patient normally takes Coumadin although INR continues to be elevated at 3.7 and will hold today and repeat INR in the morning. Continue with Accu-Cheks and sliding scale at this time as well. 02/05/2021 Patient is seen and evaluated for follow-up on the regular medical floor. She is awake and alert in no acute distress. Sitting up in a chair at the bedside. Remains on 3 L/m per nasal cannula maintaining O2 saturation in the 90s. 0.9 normal saline at 75 ML's per hour. She denies any worsening shortness of breath, cough or congestion. Her only complaint today is that she is hungry. Laboratory review shows INR 2.34. Sodium 138. Potassium 5.0. BUN 118. Creatinine 3.68. Nephrology is on the case and recommending to continue with IV fluids; no indication for renal replacement therapy at this time. Patient remains on DuoNeb inhalations, Pulmicort and Perforomist inhalations, prednisone. 02/06/2021 Patient is evaluated at bedside for follow-up on the regular medical floor. Currently sitting up in a chair at the bedside. Awake and alert in no acute distress. No worsening shortness of breath, cough or congestion. Continue good O2 saturations up to 98% on 4 L/m per nasal cannula. She's been afebrile. Hemodynamically stable. All cultures reveal no growth. White count 16.3. Hemoglobin 8.6. INR 2.00. Sodium 139. Potassium 4.9. BUN 117. Creatinine 3.24. Nephrology is on the case. No plans for renal replacement therapy at this point Patient remains on DuoNeb inhalations, Pulmicort and Perforomist inhalations, prednisone. Objective - Vital Signs Vital signs: Vital Signs Temp 98.3 F 02/06/21 05:00 Pulse 94 02/06/21 11:12 Resp 24 02/06/21 08:35 BP 145/84 02/06/21 05:00 Pulse Ox 94 L 02/06/21 05:00 Intake & Output 02/05/21 02/06/21 02/06/21 18:59 06:59 18:59 Intake Total 590 Balance 590 Intake: Oral 590 Other: Voiding Method Bedside Commode Bedside Commode Bedside Commode # Voids 3 - Exam Gen: This is a 80-year-old female awake, alert and oriented 3, sitting up in the chair, well-developed, well-nourished, anxious HEENT: Head is atraumatic, normocephalic. Pupils equal, round. Sclerae is anicteric. NECK: Supple. No JVD. No lymphadenopathy. No thyromegaly. LUNGS: Diminished breath sounds bilaterally with no wheezing or rhonchi noted. No intercostal retractions. HEART: S1, S2 are present ABDOMEN: Soft. Bowel sounds are present. No masses. No tenderness. EXTREMITIES: No pedal edema. No calf tenderness. NEUROLOGICAL: Patient is awake, alert and oriented x3. Diffusely weak - Labs CBC & Chem 7: 02/06/21 05:44 02/06/21 05:44 Labs: Abnormal Lab Results - Last 24 Hours (Table) 02/05/21 02/05/21 02/06/21 Range/Units 17:14 20:09 05:44 WBC (3.8-10.6) k/uL RBC (3.80-5.40) m/uL Hgb (11.4-16.0) gm/dL Hct (34.0-46.0) % RDW (11.5-15.5) % Neutrophils # (1.3-7.7) k/uL Lymphocytes # (1.0-4.8) k/uL PT 20.8 H (9.9-11.9) sec INR 2.00 H (0.90-1.11) BUN (7-17) mg/dL Creatinine (0.52-1.04) mg/dL POC Glucose (mg/dL) 182 H 303 H (75-99) mg/dL Total Protein (6.3-8.2) g/dL Albumin (3.5-5.0) g/dL 02/06/21 02/06/21 02/06/21 Range/Units 05:44 05:44 07:19 WBC 16.3 H (3.8-10.6) k/uL RBC 2.76 L (3.80-5.40) m/uL Hgb 8.6 L (11.4-16.0) gm/dL Hct 26.9 L (34.0-46.0) % RDW 16.4 H (11.5-15.5) % Neutrophils # 14.8 H (1.3-7.7) k/uL Lymphocytes # 0.6 L (1.0-4.8) k/uL PT (9.9-11.9) sec INR (0.90-1.11) BUN 117 H* (7-17) mg/dL Creatinine 3.24 H (0.52-1.04) mg/dL POC Glucose (mg/dL) 101 H (75-99) mg/dL Total Protein 5.4 L (6.3-8.2) g/dL Albumin 2.6 L (3.5-5.0) g/dL 02/06/21 Range/Units 11:32 WBC (3.8-10.6) k/uL RBC (3.80-5.40) m/uL Hgb (11.4-16.0) gm/dL Hct (34.0-46.0) % RDW (11.5-15.5) % Neutrophils # (1.3-7.7) k/uL Lymphocytes # (1.0-4.8) k/uL PT (9.9-11.9) sec INR (0.90-1.11) BUN (7-17) mg/dL Creatinine (0.52-1.04) mg/dL POC Glucose (mg/dL) 117 H (75-99) mg/dL Total Protein (6.3-8.2) g/dL Albumin (3.5-5.0) g/dL Assessment and Plan Assessment: Chronic obstructive pulmonary disease acute exacerbation with acute purulent tracheobronchitis with hypoxic respiratory failure, present on admission Increased white blood count Mild fluid overload Acute renal failure with acute prerenal acute tubular necrosis Chronic kidney disease stage III baseline possibly Change in mental status, acute metabolic encephalopathy, multifactorial, improved Anemia, normocytic anemia of chronic disease Hyponatremia Dehydration, present on admission hypercalcemia, present on admission History of newly diagnosed lung cancer not receiving any treatment History of atrial fibrillation chronic history of DVT hypertension Anxiety Hyperlipidemia Hypothyroidism No code, no CPR, no vent Plan: Continue with current medications and bronchodilators and steroids have been transitioned to oral steroids starting tomorrow. Pulmonary and nephrology following and creatinine continues to be elevated . Patient maintained on sodium bicarb tablets. Continue gentle IV hydration. Potassium elevated slightly at 5.4 and will give a small dose of Kayexalate and repeat labs. Coumadin resumed. Will discuss with case management and social work about discharge planning and any needs in the home. Patient lives with her daughter who is her risk professional. Patient is mostly room confined requiring a commode as she is unable to make it to the bathroom in time due to weakness and COPD. Will repeat a.m. labs and continue to monitor closely.
[2021-02-07 05:31] LABS: INR 2.1 (<1.2); Prothrombin Time 20.7 sec (9.0-12.0)
[2021-02-07 07:11] LABS: Glucose,Whole Blood 98 mg/dL (75-99)
[2021-02-07] MEDS: INSULIN ASPART (NovoLOG) 100 UNIT/ML VIAL SQ SCH ×4 (07:12→20:07)
[2021-02-07] MEDS: FORMOTEROL FUMARATE 20 MCG/2 ML NEBU INHALATION SCH ×2 (08:06→19:34)
[2021-02-07] MEDS: IPRATROPIUM-ALBUTEROL 3 ML NEB INHALATION SCH ×4 (08:06→19:34)
[2021-02-07] MEDS: BUDESONIDE 1 MG/2 ML NEBU INHALATION SCH ×2 (08:06→19:34)
[2021-02-07] MEDS: VIT A,C & E-LUTEIN-MINERALS 1 EACH TAB PO SCH (08:57)
[2021-02-07] MEDS: predniSONE 20 MG TAB PO SCH (08:57)
[2021-02-07] MEDS: SODIUM BICARBONATE TAB 650 MG TAB PO SCH (08:57)
[2021-02-07] MEDS: FERROUS SULFATE 325 MG TAB PO SCH (08:58)
[2021-02-07] MEDS: SENNOSIDES 8.6 MG TAB PO SCH (08:58)
[2021-02-07] MEDS: ALPRAZolam 0.25 MG TAB PO PRN (08:58)
[2021-02-07] MEDS ORDERED: FUROSEMIDE 10 MG/ML 4 ML VIAL IV STA (09:52)
[2021-02-07 12:43] LABS: Glucose,Whole Blood 115 mg/dL (75-99)
[2021-02-07] MEDS: SODIUM CHLORIDE 0.9% 1,000 ML IV SCH (12:47)
--- NOTE | 2021-02-07 14:28 | PN ---
PROGRESS NOTE Patient is seen for followup for acute kidney injury. This morning patient is complaining of shortness of breath. She is maintained on IV fluids. Serum creatinine 3.2 from 3.6 yesterday. Previous creatinines have been about 2.8-2.3 mg/dL all the way back to 2020. PHYSICAL EXAMINATION: On examination today, blood pressure this morning 155/88, heart rate 88 per minute. Patient is afebrile. EXAMINATION OF THE HEART: S1, S2. EXAMINATION OF THE LUNGS: Bilateral breath sounds are heard. Bilateral crackles are heard in the bases. Abdomen is soft, nontender. Examination of lower extremities shows edema 1+ bilaterally. EXPLOSIVE MAN exam grossly intact. LABS: Labs show sodium 139, potassium 4.9, BUN 117, serum creatinine 3.24 today. ASSESSMENT: 1. Acute kidney injury, nonoliguric, currently slightly improved, mostly acute tubular necrosis. 2. Volume overload, discontinue IV fluids and IV Lasix x1. 3. Chronic kidney disease, stage 4. Baseline creatinine 2-2.3 mg/dL all the way back to 2020 secondary to nephrosclerosis. 4. Anemia with chronic kidney disease. 5. Metabolic bone disease. PLAN: Discontinue IV fluids. Lasix 40 mg IV x1. Repeat labs in a.m. Continue with Rocaltrol. Avoid nephrotoxic agents. Check labs in a.m. Decrease sodium bicarb to once a day. MMODL / IJN: [id number] /
--- NOTE | 2021-02-07 16:04 | P.PN ---
Subjective Progress Note Date: 02/07/21 This is an 80-year-old female who was recently admitted with COPD acute exacerbation along with acute purulent tracheobronchitis and is being closely monitored. Patient also having some fluid overload along with acute renal failure and nephrology is following. Patient received some IV doses of Lasix a nd is maintained on bronchodilators along with IV steroids and will continue at this time. White blood count elevated at 27.5, hemoglobin is 9.0, sodium is 140, potassium is 5.0, BUN is 103 and current creatinine is 3.5. Patient normally takes Coumadin although INR continues to be elevated at 3.7 and will hold today and repeat INR in the morning. Continue with Accu-Cheks and sliding scale at this time as well. 02/03/2021 Patient is seen and evaluated and follow-up continues to be sitting up in the chair continues to be dyspneic and anxious although breathing is improved and patient is maintained on 3-4 L at her baseline. Patient continues on IV steroids which have been titrated down and will switch to oral for a short prednisone taper on discharge. Nephrology along with pulmonary following. INR today is 2.9 and Coumadin has been resumed. This morning's basic labs currently pending at this time. 02/04/2021 Patient is seen in follow-up appears to be breathing slightly better maintained on 3 L via nasal cannula which is her baseline. Patient does experience dyspnea with minimal exertion and becomes very anxious once this occurs. Patient does have when necessary anxiety medications ordered. Patient also being followed by nephrology for elevated creatinine along with pulmonary. Patient was on IV steroids and will titrate to oral steroids starting tomorrow with a short taper and will repeat a.m. labs to monitor kidney functions closely. Patient is maintained on sodium bicarb tablets and was started on gentle IV hydration with normal saline and will monitor closely. A to continue with Coumadin with pharmacy to dose and INR today is 2.2. Sodium 137 with a potassium of 5.4 and will give a low-dose Kayexalate and repeat a.m. labs, BUN is 119 and creatinine worsened at 3.71. 02/05/2021 Patient is seen and evaluated for follow-up on the regular medical floor. She is awake and alert in no acute distress. Sitting up in a chair at the bedside. Remains on 3 L/m per nasal cannula maintaining O2 saturation in the 90s. 0.9 normal saline at 75 ML's per hour. She denies any worsening shortness of breath, cough or congestion. Her only complaint today is that she is hungry. Laboratory review shows INR 2.34. Sodium 138. Potassium 5.0. BUN 118. Creatinine 3.68. Nephrology is on the case and recommending to continue with IV fluids; no indication for renal replacement therapy at this time. Patient remains on DuoNeb inhalations, Pulmicort and Perforomist inhalations, prednisone. 02/06/2021 Patient is evaluated at bedside for follow-up on the regular medical floor. Currently sitting up in a chair at the bedside. Awake and alert in no acute distress. No worsening shortness of breath, cough or congestion. Continue good O2 saturations up to 98% on 4 L/m per nasal cannula. She's been afebrile. Hemodynamically stable. All cultures reveal no growth. White count 16.3. Hemoglobin 8.6. INR 2.00. Sodium 139. Potassium 4.9. BUN 117. Creatinine 3.24. Nephrology is on the case. No plans for renal replacement therapy at this point Patient remains on DuoNeb inhalations, Pulmicort and Perforomist inhalations, prednisone. 02/07/2021 Patient is seen and evaluated this morning sitting up in the chair short of breath and lung sounds are wet and congested and will discontinue IV fluids and give a dose of IV Lasix. Nephrology is following and this was discussed. No new labs from today. Will repeat a.m. labs along with a chest x-ray in the morning. Review of systems: Constitutional: No reports of fatigue, fever, or chills, reports generalized back pain which is chronic Cardiovascular: No reports of chest pain or palpitations Respiratory: Reports continued shortness of breath which she feels is worse today GI: No reports of nausea, vomiting, or diarrhea : No reports of dysuria or retention Neurovascular: Reports generalized weakness and anxiety All medications have been reviewed Objective - Vital Signs Vital signs: Vital Signs Temp 97.6 F 02/07/21 13:00 Pulse 95 02/07/21 13:00 Resp 19 02/07/21 13:00 BP 146/83 02/07/21 13:00 Pulse Ox 94 L 02/07/21 13:00 Intake & Output 02/06/21 02/07/21 02/07/21 18:59 06:59 18:59 Intake Total 240 Balance 240 Intake: Oral 240 Other: Voiding Method Bedside Commode Bedside Commode # Voids 3 3 3 # Bowel Movements 0 - Exam Gen: This is a 80-year-old female awake, alert and oriented 3, sitting up in the chair, well-developed, well-nourished, less anxious HEENT: Head is atraumatic, normocephalic. Pupils equal, round. Sclerae is anicteric. NECK: Supple. No JVD. No lymphadenopathy. No thyromegaly. LUNGS: Diminished breath sounds bilaterally with bilateral scattered rhonchi noted. No intercostal retractions. HEART: S1, S2 are present ABDOMEN: Soft. Bowel sounds are present. No masses. No tenderness. EXTREMITIES: No pedal edema. No calf tenderness. Generalized edema of the lower extremities noted NEUROLOGICAL: Patient is awake, alert and oriented x3. Diffusely weak - Labs CBC & Chem 7: 02/06/21 05:44 02/06/21 05:44 Labs: Abnormal Lab Results - Last 24 Hours (Table) 02/06/21 02/06/21 02/07/21 Range/Units 17:20 20:38 05:13 PT 20.7 H (9.0-12.0) sec INR 2.1 H (<1.2) POC Glucose (mg/dL) 203 H 243 H (75-99) mg/dL 02/07/21 Range/Units 12:32 PT (9.0-12.0) sec INR (<1.2) POC Glucose (mg/dL) 115 H (75-99) mg/dL Assessment and Plan Assessment: Chronic obstructive pulmonary disease acute exacerbation with acute purulent tracheobronchitis with hypoxic respiratory failure, present on admission Increased white blood count Mild fluid overload Acute renal failure with acute prerenal acute tubular necrosis Chronic kidney disease stage III baseline possibly Change in mental status, acute metabolic encephalopathy, multifactorial, i mproved Anemia, normocytic anemia of chronic disease Hyponatremia Dehydration, present on admission hypercalcemia, present on admission History of newly diagnosed lung cancer not receiving any treatment History of atrial fibrillation chronic history of DVT hypertension Anxiety Hyperlipidemia Hypothyroidism No code, no CPR, no vent Plan: Continue with current medications and bronchodilators and steroids have been transitioned to oral steroids. Pulmonary and nephrology following and creatinine continues to be elevated . Patient maintained on sodium bicarb tablets which is being decreased to once daily. IV fluids discontinued and given a dose of Lasix today and this was discussed with nephrology also at the bedside. Coumadin resumed. Will discuss with case management and social work a bout discharge planning and any needs in the home. Patient lives with her daughter who is her metal products viewer. Will repeat a.m. labs and chest x-ray and continue to monitor closely. Possible discharge in 24-48 hours.
[2021-02-07 17:38] LABS: Glucose,Whole Blood 211 mg/dL (75-99)
[2021-02-07] MEDS ORDERED: WARFARIN 2.5 MG TAB PO ONE (18:00)
[2021-02-07 20:05] LABS: Glucose,Whole Blood 264 mg/dL (75-99)
[2021-02-07] MEDS: HYDROcodone/APAP 7.5-325MG 1 EACH TAB PO SCH (20:07)
[2021-02-08 04:42] VITALS: BP 165/90; RESP 20; TEMP 97.8
[2021-02-08 05:49] LABS: African American GFR (CKD) 16 (>60 ml/min/1.73 sqM); Anion Gap 3 mmol/L; Calcium 9.4 mg/dL (8.4-10.2); Carbon Dioxide 28 mmol/L (22-30); Chloride 107 mmol/L (98-107); Glucose 101 mg/dL (74-99); Non-African American GFR(CKD) 13 (>60 ml/min/1.73 sqM); Potassium 4.9 mmol/L (3.5-5.1); Sodium 138 mmol/L (137-145)
[2021-02-08] MEDS: ALPRAZolam 0.25 MG TAB PO PRN (05:50)
[2021-02-08 06:02] LABS: Blood Urea Nitrogen 110 mg/dL (7-17)
[2021-02-08 06:23] LABS: INR 2.3 (<1.2); Prothrombin Time 22.5 sec (9.0-12.0)
[2021-02-08 07:12] LABS: Glucose,Whole Blood 102 mg/dL (75-99)
[2021-02-08] MEDS: INSULIN ASPART (NovoLOG) 100 UNIT/ML VIAL SQ SCH ×2 (07:14→11:52)
[2021-02-08] MEDS: FERROUS SULFATE 325 MG TAB PO SCH (08:19)
[2021-02-08] MEDS: SENNOSIDES 8.6 MG TAB PO SCH (08:19)
[2021-02-08] MEDS: VIT A,C & E-LUTEIN-MINERALS 1 EACH TAB PO SCH (08:19)
[2021-02-08] MEDS: predniSONE 20 MG TAB PO SCH (08:19)
--- NOTE | 2021-02-08 08:29 | XR ---
EXAMINATION TYPE: XR chest 1V portable DATE OF EXAM: 02/08/2021 COMPARISON: 02/02/2021 INDICATION: Short of breath, Covid TECHNIQUE: Single frontal view of the chest is obtained. FINDINGS: The heart size is normal. The pulmonary vasculature is normal. Diffuse mild infiltrate is present bilaterally greater in the left upper and right lower lung soto. Findings are slightly worsened over the interval. IMPRESSION: 1. Mild worsening of bilateral diffuse lung infiltrates can be compatible with atypical pneumonia.
[2021-02-08] MEDS: FORMOTEROL FUMARATE 20 MCG/2 ML NEBU INHALATION SCH (08:56)
[2021-02-08] MEDS: IPRATROPIUM-ALBUTEROL 3 ML NEB INHALATION SCH ×3 (08:56→15:17)
[2021-02-08] MEDS: BUDESONIDE 1 MG/2 ML NEBU INHALATION SCH (08:56)
[2021-02-08] MEDS ORDERED: SODIUM BICARBONATE TAB 650 MG TAB PO SCH (09:00)
[2021-02-08] MEDS ORDERED: FUROSEMIDE 10 MG/ML 4 ML VIAL IV STA (09:55)
[2021-02-08 11:39] LABS: Glucose,Whole Blood 112 mg/dL (75-99)
[2021-02-08 15:29] VITALS: PULSE 90
--- NOTE | 2021-02-08 15:47 | PN ---
PROGRESS NOTE Patient is seen for followup for acute kidney injury mostly prerenal initially however patient developed volume overload and IV fluids was discontinued yesterday. Her serum creatinine is trending down currently at 3.0 from 3.7 on 02/04/2021. Overall, patient states she is feeling better. She does have underlying CKD with previous creatinine around 2.3-2.4 mg/dL. PHYSICAL EXAMINATION: On examination today, blood pressure 165/90, heart rate 93 per minute. She is afebrile. EXAMINATION OF THE HEART: S1, S2. EXAMINATION OF THE LUNGS: Decreased breath sounds at bases, basal crackles heard. Abdomen is soft, nontender. Examination of lower extremities shows edema 1+ bilaterally. SHINGLE PACKER exam grossly intact. LABS: Labs show sodium 138, potassium 4.9, chloride 107, BUN 110, serum creatinine 3.09. ASSESSMENT: 1. Acute kidney injury initially prerenal volume overload, congestive heart failure. IV fluids were discontinued. Patient is status post IV Lasix yesterday. I will repeat another dose today. 2. Chronic kidney disease, stage 4. Baseline creatinine 2-2.[address] back to 2019, mostly secondary to nephrosclerosis. 3. Anemia of chronic kidney disease. 4. Metabolic bone disease. PLAN: Continue with Rocaltrol, repeat IV Lasix x1. Continue with oral diuretics post discharge. MMODL / IJN: [id number] /
[2021-02-08] MEDS ORDERED: WARFARIN 2.5 MG TAB PO SCH (18:00)
[2021-02-08] MEDS ORDERED: WARFARIN 2.5 MG TAB PO ONE (18:00)
--- NOTE | 2021-02-09 08:55 | P.DS ---
Providers Date of admission: 01/29/21 12:37 Expected date of discharge: 02/08/21 Attending physician: Pedro Pablo Joseph Consults: 01/28/21 10:17 Consult Physician Routine Consulting Provider: Shannon Petersen Consult Reason/Comments: known to patient Do you want consulting provider notified?: Yes 01/29/21 10:25 Consult Physician Routine Consulting Provider: La Hawley Consult Reason/Comments: arf Do you want consulting provider notified?: Yes Primary care physician: Shannon Petersen Hospital Course: Final diagnosis Chronic obstructive pulmonary disease acute exacerbation with acute purulent tracheobronchitis with hypoxic respiratory failure, present on admission Increased white blood count Mild fluid overload Acute renal failure with acute prerenal acute tubular necrosis Chronic kidney disease stage III baseline possibly Change in mental status, acute metabolic encephalopathy, multifactorial, improved Anemia, normocytic anemia of chronic disease Hyponatremia Dehydration, present on admission hypercalcemia, present on admission History of newly diagnosed lung cancer not receiving any treatment History of atrial fibrillation chronic history of DVT hypertension Anxiety Hyperlipidemia Hypothyroidism No code, no CPR, no vent Discharge disposition Patient is being discharged in a stable condition with guarded prognosis to home. Patient will follow-up with Dr. Petersen upon discharge. Patient will also be following up with nephrology outpatient in a few weeks. Patient will continue short prednisone taper to complete the course. Prescriptions provided for repeat labs in 2-3 days to monitor kidney functions. Total time taken is greater than 35 minutes. Hospital course This is an 80-year-old female who was recently admitted with COPD acute exacerbation along with acute purulent tracheobronchitis and is being closely monitored. Patient also having some fluid overload along with acute renal failure and nephrology is following. Patient received some IV doses of Lasix and is maintained on bronchodilators along with IV steroids and will continue at this time. White blood count elevated at 27.5, hemoglobin is 9.0, sodium is 140, potassium is 5.0, BUN is 103 and current creatinine is 3.5. Patient normally takes Coumadin although INR continues to be elevated at 3.7 and will hold today and repeat INR in the morning. Continue with Accu-Cheks and sliding scale at this time as well. 02/03/2021 Patient is seen and evaluated and follow-up continues to be sitting up in the chair continues to be dyspneic and anxious although breathing is improved and patient is maintained on 3-4 L at her baseline. Patient continues on IV steroids which have been titrated down and will switch to oral for a short prednisone taper on discharge. Nephrology along with pulmonary following. INR today is 2.9 and Coumadin has been resumed. This morning's basic labs currently pending at this time. 02/04/2021 Patient is seen in follow-up appears to be breathing slightly better maintained on 3 L via nasal cannula which is her baseline. Patient does experience dyspnea with minimal exertion and becomes very anxious once this occurs. Patient does have when necessary anxiety medications ordered. Patient also being followed by nephrology for elevated creatinine along with pulmonary. Patient was on IV steroids and will titrate to oral steroids starting tomorrow with a short taper and will repeat a.m. labs to monitor kidney functions closely. Patient is maintained on sodium bicarb tablets and was started on gentle IV hydration with normal saline and will monitor closely. A to continue with Coumadin with pharmacy to dose and INR today is 2.2. Sodium 137 with a potassium of 5.4 and will give a low-dose Kayexalate and repeat a.m. labs, BUN is 119 and creatinine worsened at 3.71. 02/05/2021 Patient is seen and evaluated for follow-up on the regular medical floor. She is awake and alert in no acute distress. Sitting up in a chair at the bedside. Remains on 3 L/m per nasal cannula maintaining O2 saturation in the 90s. 0.9 normal saline at 75 ML's per hour. She denies any worsening shortness of breath, cough or congestion. Her only complaint today is that she is hungry. Laboratory review shows INR 2.34. Sodium 138. Potassium 5.0. BUN 118. Creatinine 3.68. Nephrology is on the case and recommending to continue with IV fluids; no indication for renal replacement therapy at this time. Patient remains on DuoNeb inhalations, Pulmicort and Perforomist inhalations, prednisone. 02/06/2021 Patient is evaluated at bedside for follow-up on the regular medical floor. Currently sitting up in a chair at the bedside. Awake and alert in no acute distress. No worsening shortness of breath, cough or congestion. Continue good O2 saturations up to 98% on 4 L/m per nasal cannula. She's been afebrile. Hemodynamically stable. All cultures reveal no growth. White count 16.3. Hemoglobin 8.6. INR 2.00. Sodium 139. Potassium 4.9. BUN 117. Creatinine 3.24. Nephrology is on the case. No plans for renal replacement therapy at this point Patient remains on DuoNeb inhalations, Pulmicort and Perforomist inhalations, prednisone. 02/07/2021 Patient is seen and evaluated this morning sitting up in the chair short of breath and lung sounds are wet and congested and will discontinue IV fluids and give a dose of IV Lasix. Nephrology is following and this was discussed. No new labs from today. Will repeat a.m. labs along with a chest x-ray in the morning. 02/08/2021 She is seen in follow-up this morning stating she is feeling much better and is going home today. Patient's creatinine slightly improving at 3.09 and being followed by nephrology and given a dose of IV Lasix. Patient's lung sounds continue to be diminished although much improved from yesterday and is able to cough and expectorate some phlegm she states. Patient appears to be less anxious today and anticipating discharge and would like to go home. Prescriptions provided for DuoNeb's and a short prednisone taper to complete the course. Patient also provided prescriptions for repeat labs to monitor kidney functions and instructed the patient to follow-up with nephrology along with primary care provider upon discharge. Currently no reports of chest pain, shortness of breath, or palpitations. Patient is afebrile. No reports of nausea or vomiting and patient is tolerating diet. Guarded prognosis. On exam vital signs are stable. Cardio S1, S2 are muffled. Respiratory shows diminished breath sounds at the bases with a few scattered rhonchi noted. Abdomen is soft and nontender. Nervous system shows no focal deficits. Please refer to medication reconciliation sheet for a list of medications. Patient Condition at Discharge: Fair Plan - Discharge Summary Discharge Rx Participant: Yes New Discharge Prescriptions: New Darbepoetin Juaquin [Aranesp] 40 mcg SQ Q7D syringe calcium polycarbophiL [Fibercon] 625 mg PO DAILY 30 Days #30 tab predniSONE 10 mg PO DIRECTED #30 tab Budesonide [Pulmicort Flexhaler] 2 puff INHALATION BID 30 Days #1 inhaler Sennosides [Senokot] 8.6 mg PO DAILY 30 Days #30 tab Sodium Bicarbonate Tab 650 mg PO DAILY 30 Days #30 tab ALPRAZolam [Xanax] 0.25 mg PO QID PRN #12 tab PRN Reason: Anxiety Ipratropium-Albuterol Nebulize [Duoneb 0.5 mg-3 mg/3 ml Soln] 3 ml INHALATION RT-QID PRN ml PRN Reason: Shortness Of Breath Acetaminophen Tab [Tylenol] 650 mg PO Q6HR PRN tab PRN Reason: Mild Pain Continue HYDROcodone/APAP 7.5-325MG [[place] 7.5-325] 1 tab PO HS calcitrioL [Rocaltrol] 0.25 mcg PO MOFR Vit C/E/Zn/Coppr/Lutein/Zeaxan [Preservision Areds 2 Softgel] 1 cap PO DAILY Ferrous Sulfate [Iron (65 MG Elemental)] 325 mg PO DAILY Furosemide [Lasix] 40 mg PO MOWEFR Warfarin Sodium [Jantoven] 2.5 mg PO DAILY Changed Ipratropium-Albuterol Nebulize [Duoneb 0.5 mg-3 mg/3 ml Soln] 3 ml INHALATION QID 30 Days #120 neb Discontinued Losartan [Cozaar] 25 mg PO DAILY #30 tab Cefuroxime Axetil [Ceftin] 500 mg PO BID 10 Days #20 tab Discharge Medication List HYDROcodone/APAP 7.5-325MG [[place] 7.5-325] 1 tab PO HS 05/26/16 [History] calcitrioL [Rocaltrol] 0.25 mcg PO MOFR 03/27/19 [History] Vit C/E/Zn/Coppr/Lutein/Zeaxan [Preservision Areds 2 Softgel] 1 cap PO DAILY 04/02/19 [History] Ferrous Sulfate [Iron (65 MG Elemental)] 325 mg PO DAILY 10/02/20 [History] Furosemide [Lasix] 40 mg PO MOWEFR 01/27/21 [History] Warfarin Sodium [Jantoven] 2.5 mg PO DAILY 01/27/21 [History] ALPRAZolam [Xanax] 0.25 mg PO QID PRN #12 tab 02/08/21 [Rx] Acetaminophen Tab [Tylenol] 650 mg PO Q6HR PRN tab 02/08/21 [Rx] Budesonide [Pulmicort Flexhaler] 2 puff INHALATION BID 30 Days #1 inhaler 02/08/21 [Rx] Darbepoetin Juaquin [Aranesp] 40 mcg SQ Q7D syringe 02/08/21 [Rx] Ipratropium-Albuterol Nebulize [Duoneb 0.5 mg-3 mg/3 ml Soln] 3 ml INHALATION QID 30 Days #120 neb 02/08/21 [Rx] Ipratropium-Albuterol Nebulize [Duoneb 0.5 mg-3 mg/3 ml Soln] 3 ml INHALATION RT-QID PRN ml 02/08/21 [Rx] Sennosides [Senokot] 8.6 mg PO DAILY 30 Days #30 tab 02/08/21 [Rx] Sodium Bicarbonate Tab 650 mg PO DAILY 30 Days #30 tab 02/08/21 [Rx] calcium polycarbophiL [Fibercon] 625 mg PO DAILY 30 Days #30 tab 02/08/21 [Rx] predniSONE 10 mg PO DIRECTED #30 tab 02/08/21 [Rx] Follow up Appointment(s)/Referral(s): Shannon Petersen MD [Primary Care Provider] - 02/22/21 1:30 pm La Hawley MD [STAFF PHYSICIAN] - 03/08/21 11:20 am [facility], [NON-STAFF] - 1 Week Ambulatory/Diagnostic Orders: Comprehensive Metabolic Panel [LAB.AMB] Time Frame: 3 Days, Location: None Selected Patient Instructions/Handouts: Alprazolam (By mouth), Albuterol (By breathing), Prednisone (By mouth), Budesonide (By breathing), Calcium Supplement (By mouth), Sodium Bicarbonate (By mouth), Acute Kidney Injury (DC), COPD (Chronic Obstructive Pulmonary Disease) (DC) Activity/Diet/Wound Care/Special Instructions: Activity Limited until follow-up Follow-up with primary care provider upon discharge follow up with pulmonary outpatient follow up with nephrology outpatient repeat labs in 2-3 days to monitor kidney functions Continue short prednisone taper to finish Continue current diet Discharge Disposition: HOME WITH HOME HEALTH SERVICES
== END 2021-02-08 17:25 | disposition home health service (06) | DRG 190 ==
LOC: EC 17:14 → 5NMEDONC 21:21 → OBSVTOIN 01-29 12:37
PROVIDERS: ADMIT Internal Medicine; ATTEND Internal Medicine
DX: J44.1 Chronic obstructive pulmonary disease with (acute) exacerbation (principal); J96.21 Acute and chronic respiratory failure with hypoxia; N17.0 Acute kidney failure with tubular necrosis; G93.41 Metabolic encephalopathy; N18.4 Chronic kidney disease, stage 4 (severe); C34.90 Malignant neoplasm of unspecified part of unspecified bronchus or lung; E87.1 Hypo-osmolality and hyponatremia; E87.2 Acidosis; I13.0 Hypertensive heart and chronic kidney disease with heart failure and stage 1 through stage 4 chronic kidney disease, or unspecified chronic kidney disease; I48.20 Chronic atrial fibrillation, unspecified; J44.0 Chronic obstructive pulmonary disease with (acute) lower respiratory infection; J20.9 Acute bronchitis, unspecified; Z20.822 Contact with and (suspected) exposure to COVID-19; E83.9 Disorder of mineral metabolism, unspecified; D63.1 Anemia in chronic kidney disease; E03.9 Hypothyroidism, unspecified; E78.5 Hyperlipidemia, unspecified; E83.52 Hypercalcemia; E86.0 Dehydration; E86.1 Hypovolemia; F41.9 Anxiety disorder, unspecified; I50.9 Heart failure, unspecified; Z86.718 Personal history of other venous thrombosis and embolism; Z79.01 Long term (current) use of anticoagulants; M19.90 Unspecified osteoarthritis, unspecified site; Z79.899 Other long term (current) drug therapy; Z82.49 Family history of ischemic heart disease and other diseases of the circulatory system; Z82.5 Family history of asthma and other chronic lower respiratory diseases; Z83.3 Family history of diabetes mellitus; Z87.891 Personal history of nicotine dependence; Z90.2 Acquired absence of lung [part of]; Z98.51 Tubal ligation status; Z66 Do not resuscitate; Z84.1 Family history of disorders of kidney and ureter; Z98.890 Other specified postprocedural states
CPT/HCPCS: 36415; 71045; 80048; 80053; 81001; 82728; 83036; 83540; 83550; 83605; 83735; 84484; 84550; 85025; 85027; 85610; 85730; 87040; 87635; 93005; 94640; 94760; 96365; 99285

== ENCOUNTER 2021-02-16 21:02 | Inpatient (IN) | payer MEDICARE, BC ==
[2021-02-16 21:35] LABS: Anisocytosis Slight; Basophils % (A) 0 %; Eosinophils % (A) 0 %; HCT 26.4 % (34.0-46.0); HGB 8.3 gm/dL (11.4-16.0); Hypochromasia Slight; Lymphocytes # (A) 0.4 k/uL (1.0-4.8); Lymphocytes % (A) 4 %; MCH 30.1 pg (25.0-35.0); MCHC 31.3 g/dL (31.0-37.0); MCV 96.3 fL (80.0-100.0); Macrocytosis Slight; Mean Platelet Volume 7.9; Monocytes # (A) 0.5 k/uL (0-1.0); Monocytes % (A) 4 %; Neutrophils # (A) 11.1 k/uL (1.3-7.7); Neutrophils % (A) 91 %; Platelet Count 188 k/uL (150-450); RBC 2.74 m/uL (3.80-5.40); RDW 16.8 % (11.5-15.5); WBC 12.2 k/uL (3.8-10.6)
[2021-02-16 21:49] LABS: Magnesium 2.5 mg/dL (1.6-2.3); Potassium 5.6 mmol/L (3.5-5.1); Total Bilirubin 0.8 mg/dL (0.2-1.3); Total Protein 5.7 g/dL (6.3-8.2)
--- NOTE | 2021-02-16 21:54 | XR ---
EXAMINATION TYPE: XR chest 2V DATE OF EXAM: 02/16/2021 COMPARISON: 02/08/2021 HISTORY: Short of breath TECHNIQUE: 2 views FINDINGS: There is pulmonary interstitial and airspace edema. Heart is enlarged. There is blunting of the costophrenic angles. There are chest leads. There is mild thoracic kyphosis with some osteopenia. IMPRESSION: Congestive heart failure with pleural effusions. 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 Chest appears not significantly different than recent exam.
[2021-02-16 21:56] LABS: INR 1.5 (<1.2); Partial Thromboplastin Time 27.1 sec (22.0-30.0); Prothrombin Time 15.2 sec (9.0-12.0)
--- NOTE | 2021-02-16 21:56 | ED ---
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 Patient reports that this morning she developed a cough again and became more short of breath. States that she was recently admitted for similar symptoms. Patient denies any chest pain. Patient denies any fevers. Patient has no other complaints at this time including chest pain, abdominal pain, nausea or vomiting, headache, or visual changes. - Related Data Home Medications Medication Instructions Recorded Confirmed HYDROcodone/APAP 7.5-325MG [Byers 1 tab PO HS 05/26/16 02/16/21 7.5-325] calcitrioL [Rocaltrol] 0.25 mcg PO MOFR 03/27/19 02/16/21 Vit C/E/Zn/Coppr/Lutein/Zeaxan 1 cap PO DAILY 04/02/19 02/16/21 [Preservision Areds 2 Softgel] Ferrous Sulfate [Iron (65 MG 325 mg PO DAILY 10/02/20 02/16/21 Elemental)] Furosemide [Lasix] 40 mg PO MOWEFR 01/27/21 02/16/21 Warfarin Sodium [Jantoven] 2.5 mg PO DAILY 01/27/21 02/16/21 Budesonide [Pulmicort Flexhaler] 2 puff INHALATION RT-BID 02/16/21 02/16/21 predniSONE See Taper PO DIRECTED 02/16/21 02/16/21 Previous Rx's Medication Instructions Recorded ALPRAZolam [Xanax] 0.25 mg PO QID PRN #12 tab 02/08/21 Acetaminophen Tab [Tylenol] 650 mg PO Q6HR PRN tab 02/08/21 Darbepoetin Juaquin [Aranesp] 40 mcg SQ Q7D syringe 02/08/21 Ipratropium-Albuterol Nebulize 3 ml INHALATION QID 30 Days #120 02/08/21 [Duoneb 0.5 mg-3 mg/3 ml Soln] neb Ipratropium-Albuterol Nebulize 3 ml INHALATION RT-QID PRN ml 02/08/21 [Duoneb 0.5 mg-3 mg/3 ml Soln] Sennosides [Senokot] 8.6 mg PO DAILY 30 Days #30 tab 02/08/21 Sodium Bicarbonate Tab 650 mg PO DAILY 30 Days #30 tab 02/08/21 calcium polycarbophiL [Fibercon] 625 mg PO DAILY 30 Days #30 tab 02/08/21 Allergies Allergy/AdvReac Type Severity Reaction Status Date / Time No Known Allergies Allergy Verified 02/16/21 21:36 Review of Systems ROS Statement: Those systems with pertinent positive or pertinent negative responses have been documented in the HPI. ROS Other: All systems not noted in ROS Statement are negative. Past Medical History Past Medical History: Atrial Fibrillation, Cancer, COPD, Deep Vein Thrombosis (DVT), Hyperlipidemia, Hypertension, Osteoarthritis (OA), Renal Disease, Thyroid Disorder Additional Past Medical History / Comment(s): lung cancer had surgery 2 years ago History of Any Multi-Drug Resistant Organisms: None Reported Past Surgical History: Tubal Ligation Additional Past Surgical History / Comment(s): hx blood clot left arm 3 yrs ago - surgery to remove clot-has endurant abdominal stent graft feb 28 2016, removal of lower right lobe Past Anesthesia/Blood Transfusion Reactions: Previous Problems w/ Anesthesia, Family History of Problems w/ Anesthesia Additional Past Anesthesia/Blood Transfusion Reaction / Comment(s): Slow to Awaken, patient and daughter. Past Psychological History: No Psychological Hx Reported Smoking Status: Former smoker Past Alcohol Use History: None Reported Past Drug Use History: None Reported - Past Family History Father Family Medical History: COPD, Diabetes Mellitus, Myocardial Infarction ([place]) Mother Additional Family Medical History / Comment(s): at age 31 - cause unk nown Brother(s) Additional Family Medical History / Comment(s): states kidney and heart history Sister(s) Family Medical History: Myocardial Infarction ([place]) Additional Family Medical History / Comment(s): dialysis General Exam Limitations: no limitations General appearance: alert, in no apparent distress Head exam: Present: atraumatic, normocephalic, normal inspection Eye exam: Present: normal appearance, PERRL, EOMI. Absent: scleral icterus, conjunctival injection, periorbital swelling ENT exam: Present: normal exam, mucous membranes moist Neck exam: Present: normal inspection. Absent: tenderness, meningismus, lymphadenopathy Respiratory exam: Present: normal lung sounds bilaterally. Absent: respiratory distress, wheezes, rales, rhonchi, stridor Cardiovascular Exam: Present: regular rate, normal rhythm, normal heart sounds. Absent: systolic murmur, diastolic murmur, rubs, gallop, clicks GI/Abdominal exam: Present: soft, normal bowel sounds. Absent: distended, tenderness, guarding, rebound, rigid Course Vital Signs 02/16/21 02/16/21 21:07 22:21 Temperature 98.4 F Pulse Rate 98 93 Respiratory 18 20 Rate Blood Pressure 146/79 149/81 O2 Sat by Pulse 99 99 Oximetry EKG Findings - EKG Comments: EKG Findings:: Normal sinus rhythm, ventricular rate 93, IN interval 156, QTc 425 Medical Decision Making - Medical Decision Making Vitals are stable. Patient does appears sightly short of breath. Creatinine is baseline. Troponin slightly elevated. Chest x-ray does show bilateral pleural effusions, congestive heart failure. Patient started on Lasix. Patient will be admitted for further management. Case discussed the Dr. Joseph. - Lab Data Result diagrams: 02/16/21 21:27 02/16/21 21:27 Lab Results 02/16/21 02/16/21 02/16/21 Range/Units 21:27 21:27 21:27 WBC 12.2 H (3.8-10.6) k/uL RBC 2.74 L (3.80-5.40) m/uL Hgb 8.3 L (11.4-16.0) gm/dL Hct 26.4 L (34.0-46.0) % MCV 96.3 (80.0-100.0) fL MCH 30.1 (25.0-35.0) pg MCHC 31.3 (31.0-37.0) g/dL RDW 16.8 H (11.5-15.5) % Plt Count 188 (150-450) k/uL MPV 7.9 Neutrophils % 91 % Lymphocytes % 4 % Monocytes % 4 % Eosinophils % 0 % Basophils % 0 % Neutrophils # 11.1 H (1.3-7.7) k/uL Lymphocytes # 0.4 L (1.0-4.8) k/uL Monocytes # 0.5 (0-1.0) k/uL Eosinophils # 0.0 (0-0.7) k/uL Basophils # 0.0 (0-0.2) k/uL Hypochromasia Slight Anisocytosis Slight Macrocytosis Slight PT 15.2 H (9.0-12.0) sec INR 1.5 H (<1.2) APTT 27.1 (22.0-30.0) sec Sodium 135 L (137-145) mmol/L Potassium 5.6 H (3.5-5.1) mmol/L Chloride 99 (98-107) mmol/L Carbon Dioxide 31 H (22-30) mmol/L Anion Gap 5 mmol/L BUN 87 H (7-17) mg/dL Creatinine 3.34 H (0.52-1.04) mg/dL Est GFR (CKD-EPI)AfAm 14 (>60 ml/min/1.73 sqM) Est GFR (CKD-EPI)NonAf 12 (>60 ml/min/1.73 sqM) Glucose 110 H (74-99) mg/dL Plasma Lactic Acid Micky (0.7-2.0) mmol/L Calcium 10.0 (8.4-10.2) mg/dL Magnesium 2.5 H (1.6-2.3) mg/dL Total Bilirubin 0.8 (0.2-1.3) mg/dL AST 19 (14-36) U/L ALT 17 (4-34) U/L Alkaline Phosphatase 41 (38-126) U/L Troponin I (0.000-0.034) ng/mL Total Protein 5.7 L (6.3-8.2) g/dL Albumin 3.0 L (3.5-5.0) g/dL 02/16/21 02/16/21 Range/Units 21:27 21:27 WBC (3.8-10.6) k/uL RBC (3.80-5.40) m/uL Hgb (11.4-16.0) gm/dL Hct (34.0-46.0) % MCV (80.0-100.0) fL MCH (25.0-35.0) pg MCHC (31.0-37.0) g/dL RDW (11.5-15.5) % Plt Count (150-450) k/uL MPV Neutrophils % % Lymphocytes % % Monocytes % % Eosinophils % % Basophils % % Neutrophils # (1.3-7.7) k/uL Lymphocytes # (1.0-4.8) k/uL Monocytes # (0-1.0) k/uL Eosinophils # (0-0.7) k/uL Basophils # (0-0.2) k/uL Hypochromasia Anisocytosis Macrocytosis PT (9.0-12.0) sec INR (<1.2) APTT (22.0-30.0) sec Sodium (137-145) mmol/L Potassium (3.5-5.1) mmol/L Chloride (98-107) mmol/L Carbon Dioxide (22-30) mmol/L Anion Gap mmol/L BUN (7-17) mg/dL Creatinine (0.52-1.04) mg/dL Est GFR (CKD-EPI)AfAm (>60 ml/min/1.73 sqM) Est GFR (CKD-EPI)NonAf (>60 ml/min/1.73 sqM) Glucose (74-99) mg/dL Plasma Lactic Acid Micky 1.0 (0.7-2.0) mmol/L Calcium (8.4-10.2) mg/dL Magnesium (1.6-2.3) mg/dL Total Bilirubin (0.2-1.3) mg/dL AST (14-36) U/L ALT (4-34) U/L Alkaline Phosphatase (38-126) U/L Troponin I 0.057 H* (0.000-0.034) ng/mL Total Protein (6.3-8.2) g/dL Albumin (3.5-5.0) g/dL Disposition Clinical Impression: CHF (congestive heart failure), Pleural effusion, Shortness of breath, Elevated troponin Disposition: ADMITTED IP TO THIS [facility] Is patient prescribed a controlled substance at d/c from ED?: No Referrals: Shannon Petersen MD [Primary Care Provider] - 1-2 days Time of Disposition: 22:40
[2021-02-16] MEDS ORDERED: ACETAMINOPHEN TAB 325 MG TAB PO PRN (22:43)
[2021-02-17] MEDS: IPRATROPIUM-ALBUTEROL 3 ML NEB INHALATION PRN (05:17)
[2021-02-17] MEDS: IPRATROPIUM-ALBUTEROL 3 ML NEB INHALATION SCH ×4 (07:22→20:51)
[2021-02-17] MEDS ORDERED: BUDESONIDE 90 MCG INHALATION SCH (08:00)
[2021-02-17] MEDS ORDERED: FUROSEMIDE 10 MG/ML 4 ML VIAL IV STA (08:40)
[2021-02-17] MEDS: ALPRAZolam 0.25 MG TAB PO PRN ×2 (08:45→20:13)
[2021-02-17] MEDS: FERROUS SULFATE 325 MG TAB PO SCH (08:45)
[2021-02-17] MEDS: VIT A,C & E-LUTEIN-MINERALS 1 EACH TAB PO SCH (08:45)
[2021-02-17] MEDS: SODIUM BICARBONATE TAB 650 MG TAB PO SCH (08:45)
[2021-02-17] MEDS: SENNOSIDES 8.6 MG TAB PO SCH (08:45)
[2021-02-17] MEDS: BUDESONIDE 1 MG/2 ML NEBU INHALATION SCH ×2 (08:52→20:51)
[2021-02-17] MEDS ORDERED: predniSONE 20 MG TAB PO SCH (09:00)
[2021-02-17] MEDS ORDERED: DARBEPOETIN ALFA 40 MCG/0.4 ML SYRINGE SQ SCH (09:00)
[2021-02-17 09:02] LABS: INR 1.4 (<1.2); Prothrombin Time 14.4 sec (9.0-12.0)
--- NOTE | 2021-02-17 13:12 | P.NPCON ---
History of Present Illness - Reason for Consult acute renal failure, chronic renal failure - History of Present Illness Reason for consultation: Acute kidney injury on chronic kidney disease History of present illness: Patient is a 80-year-old female seen in renal consultation for acute kidney injury on chronic kidney disease. Patient has chronic kidney disease stage IV with baseline creatinine near 2.3 in January 2021. However recently her creatinine has been near 3-3.5. This admission was 3.34. Patient presented to the hospital for shortness of breath which she states began yesterday. Patient states she was just sitting on a chair. She does admit to operative cough with clear phlegm. She tested negative for coronavirus. Patient has a history of diastolic CHF with mild to moderate mitral regurgitation, moderate tricuspid regurgitation as well as pulmonary hypertension. Does admit to edema in her lower extremity is. Has been voiding. No hematuria. No fever or chills. No vomiting or diarrhea. Oral intake is fair. Denies use of nonsteroidals. No history of diabetes. Patient has refused in the past and continues to refuse renal replacement therapy if needed. Vital signs are stable. General: The patient appeared well nourished and normally developed. HEENT: Head exam is unremarkable. Neck is without jugular venous distension. LUNGS: Breath sounds decreased. HEART: Rate and Rhythm are regular. ABDOMEN: Soft, no distention. EXTREMITITES: 1+ edema. Past Medical History Past Medical History: Atrial Fibrillation, Cancer, COPD, Deep Vein Thrombosis (DVT), Eye Disorder, Hyperlipidemia, Hypertension, Osteoarthritis (OA), Pneumonia, Renal Disease, Thyroid Disorder Additional Past Medical History / Comment(s): Pt recently admitted to [facility] on 01/29/21 with exacerbation COPD/tracheobronchitis. Other hx: 2019 diagnosed with R lung cancer and had surgery, pneumonia with sepsis, home oxygen ATC, DVT L arm with surgery, CKD stage III, chronic anemia, diverticular disease, bilateral macular degeneration, bilateral lower leg edema, past gout, valvular disease. History of Any Multi-Drug Resistant Organisms: None Reported Past Surgical History: Tubal Ligation Additional Past Surgical History / Comment(s): L arm thromboembolectomy, endurant abdominal stent graft feb 28 2016, thorascopic R wedge resection, colonoscopy, bilateral cataract removals Past Anesthesia/Blood Transfusion Reactions: Previous Problems w/ Anesthesia, Family History of Problems w/ Anesthesia Additional Past Anesthesia/Blood Transfusion Reaction / Comment(s): Slow to Awaken, patient and daughter. Smoking Status: Former smoker - Past Family History Father Family Medical History: COPD, Diabetes Mellitus, Myocardial Infarction ([place]) Mother History Unknown: Yes Additional Family Medical History / Comment(s): at age 31 - cause unknown Brother(s) Family Medical History: Respiratory Disorder Additional Family Medical History / Comment(s): states kidney and heart history Sister(s) Family Medical History: Myocardial Infarction ([place]), Renal Disease Additional Family Medical History / Comment(s): dialysis Medications and Allergies Home Medications Medication Instructions Recorded Confirmed Type HYDROcodone/APAP 7.5-325MG [Benedict 1 tab PO HS 05/26/16 02/16/21 History 7.5-325] calcitrioL [Rocaltrol] 0.25 mcg PO MOFR 03/27/19 02/16/21 History Vit C/E/Zn/Coppr/Lutein/Zeaxan 1 cap PO DAILY 04/02/19 02/16/21 History [Preservision Areds 2 Softgel] Ferrous Sulfate [Iron (65 MG 325 mg PO DAILY 10/02/20 02/16/21 History Elemental)] Furosemide [Lasix] 40 mg PO MOWEFR 01/27/21 02/16/21 History Warfarin Sodium [Jantoven] 2.5 mg PO DAILY 01/27/21 02/16/21 History ALPRAZolam [Xanax] 0.25 mg PO QID PRN #12 tab 02/08/21 02/16/21 Rx Acetaminophen Tab [Tylenol] 650 mg PO Q6HR PRN tab 02/08/21 02/16/21 Rx Darbepoetin Juaquin [Aranesp] 40 mcg SQ Q7D syringe 02/08/21 02/16/21 Rx Ipratropium-Albuterol Nebulize 3 ml INHALATION QID 30 Days #120 02/08/21 02/16/21 Rx [Duoneb 0.5 mg-3 mg/3 ml Soln] neb Ipratropium-Albuterol Nebulize 3 ml INHALATION RT-QID PRN ml 02/08/21 02/16/21 Rx [Duoneb 0.5 mg-3 mg/3 ml Soln] Sennosides [Senokot] 8.6 mg PO DAILY 30 Days #30 tab 02/08/21 02/16/21 Rx Sodium Bicarbonate Tab 650 mg PO DAILY 30 Days #30 tab 02/08/21 02/16/21 Rx calcium polycarbophiL [Fibercon] 625 mg PO DAILY 30 Days #30 tab 02/08/21 02/16/21 Rx Budesonide [Pulmicort Flexhaler] 2 puff INHALATION RT-BID 02/16/21 02/16/21 History predniSONE See Taper PO DIRECTED 02/16/21 02/16/21 History Allergies Allergy/AdvReac Type Severity Reaction Status Date / Time No Known Allergies Allergy Verified 02/16/21 21:36 Physical Exam Vitals: Vital Signs Temp Pulse Resp BP Pulse Ox 02/17/21 12:04 98.3 F 107 H 20 153/88 97 02/17/21 12:00 107 H 20 153/88 97 02/17/21 11:00 20 97 02/17/21 10:00 107 H 20 97 02/17/21 09:00 103 H 18 97 02/17/21 08:54 114 H 02/17/21 08:35 110 H 02/17/21 08:00 105 H 22 153/88 97 02/17/21 06:57 105 H 20 165/88 97 02/17/21 06:00 105 H 22 145/85 94 L 02/17/21 05:27 103 H 02/17/21 05:17 105 H 02/17/21 05:00 92 22 145/85 99 02/17/21 04:00 75 22 145/85 97 02/17/21 03:00 77 14 148/68 98 02/17/21 02:00 78 18 145/85 98 02/17/21 01:00 18 97 02/17/21 00:00 97 02/16/21 23:00 98 02/16/21 22:21 93 20 149/81 99 02/16/21 21:40 20 02/16/21 21:07 98.4 F 98 18 146/79 99 Intake and Output 02/16/21 02/17/21 02/17/21 22:59 06:59 14:59 Other: Voiding Method Incontinent # Voids 2 Weight 64.864 kg 64.864 kg Results - Lab Results Most recent lab results Calcium 10.0 mg/dL (8.4-10.2) 02/16/21 21:27 Magnesium 2.5 mg/dL (1.6-2.3) H 02/16/21 21:27 02/16/21 21:27 02/16/21 21:27 Assessment and Plan Plan: Assessment: 1. Acute kidney injury secondary to ATN secondary to cardiorenal syndrome. Creatinine 3.34 today. 2. Chronic kidney disease stage IV with baseline creatinine near 2.3 in January 2021. However since her last discharge her creatinine is been in the range of 3-3.5. 3. Acute on chronic diastolic CHF and mild to moderate mitral and tricuspid regurgitation. 4. Pulmonary hypertension. 5. Anemia of chronic kidney disease. Rule out iron deficiency. On Aranesp. 6. Chronic kidney disease mineral bone disease maintained on calcitriol. 7. Volume overload. Plan: Added IV Lasix 60 mg twice daily. Low-salt diet and 1500 mL fluid restriction. Check renal ultrasound. Strict is and os. Check iron studies. Avoid nephrotoxins. Continue to monitor renal function and urine output. Patient has refused any form of renal placement therapy if needed. Thank you for the consultation. I will continue to follow the patient with you during her hospital stay.
--- NOTE | 2021-02-17 13:35 | P.CRDCN ---
History of Present Illness Consult date: 02/17/21 History of present illness: HISTORY OF PRESENT ILLNESS: This is a 80-year-old female with a past medical history significant for paroxysmal atrial fibrillation, COPD, DVT, hypertension, hyperlipidemia, chronic kidney disease, and former nicotine dependence. Patient follows in the office with Dr. David. We have been asked to see the patient in consultation for congestive heart failure. Patient examined at the bedside in the emergency room. Patient states she has been feeling short of breath for the past few days. She also reports increased lower extremity edema. She presented to the emergency room for further evaluation. Patient was given a dose of IV Lasix. Patient states her breathing has improved and she denies shortness of breath at the time of examination. She denies chest pain or pressure. Denies fever or chills. EKG reveals sinus mechanism with no signs of acute ischemia Chest xray congestive heart failure with pleural effusions. There is probably underlying pulmonary interstitial fibrosis. Laboratory data: WBC 12.2. Hemoglobin 8.3. Platelet count 188. INR 1.5. Sodium 135. Potassium 5.6. BUN 87. Creatinine 3.34. Troponin 0.057. 0.061. 0.064. BNP 37,900. Current home cardiac medications include Coumadin 2.5 mg daily and Lasix 40 mg Sunday Echocardiogram completed in September 2020 revealed ejection fraction 55-60%, mild to moderate mitral regurgitation, moderate tricuspid regurgitation, and moderate to severe pulmonary hypertension REVIEW OF SYSTEMS: At the time of my exam: CONSTITUTIONAL: Denies fever or chills. HEENT: Denies blurred vision, vision changes, or eye pain. Denies hemoptysis CARDIOVASCULAR: Denies chest pain. Denies orthopnea. Denies PND. Denies palpitations RESPIRATORY: Denies shortness of breath. GASTROINTESTINAL: Denies abdominal pain. Denies nausea or vomiting. HEMATOLOGIC: Denies bleeding disorders. GENITOURINARY: Denies any blood in urine. SKIN: Denies pruitis. Denies rash. PHYSICAL EXAM: VITAL SIGNS: Reviewed. GENERAL: Well-developed in no acute distress. HEENT: Head is normocephalic. Pupils are equal, round. Sclerae anicteric. Mucous membranes of the mouth are moist. Neck supple. No JVD or thyromegaly LUNGS: Respirations even and unlabored. Lungs diminished with bibasilar rales HEART: Regular rate and rhythm. S1 and S2 heard. Systolic murmur noted. ABDOMEN: Soft. Nondistended. Nontender. EXTREMITIES: Normal range of motion. No clubbing or cyanosis. Peripheral pulses intact. 3+ bilateral lower extremity edema NEUROLOGIC: Awake and alert. Oriented x 3. ASSESSMENT: Acute exacerbation of chronic diastolic heart failure, ejection fraction 55-60% Paroxysmal atrial fibrillation, on anticoagulation with Coumadin Acute on chronic kidney disease Hypertension Hyperlipidemia Pulmonary hypertension COPD Former nicotine dependence PLAN: Resume home cardiac medications Nephrology following Patient started on IV lasix 60mg Q12 hours Monitor kidney function Accurate I&O Daily weights Continue coumadin. Monitor INR Further recommendations pending patient course Nurse practitioner note has been reviewed by physician. Signing provider agrees with the documented findings, assessment, and plan of care. Past Medical History Past Medical History: Atrial Fibrillation, Cancer, COPD, Deep Vein Thrombosis (DVT), Eye Disorder, Hyperlipidemia, Hypertension, Osteoarthritis (OA), Pneumonia, Renal Disease, Thyroid Disorder Additional Past Medical History / Comment(s): Pt recently admitted to [facility] on 01/29/21 with exacerbation COPD/tracheobronchitis. Other hx: 2019 diagnosed with R lung cancer and had surgery, pneumonia with sepsis, home oxygen ATC, DVT L arm with surgery, CKD stage III, chronic anemia, diverticular disease, bilateral macular degeneration, bilateral lower leg edema, past gout, valvular disease. History of Any Multi-Drug Resistant Organisms: None Reported Past Surgical History: Tubal Ligation Additional Past Surgical History / Comment(s): L arm thromboembolectomy, endurant abdominal stent graft feb 28 2016, thorascopic R wedge resection, colonoscopy, bilateral cataract removals Past Anesthesia/Blood Transfusion Reactions: Previous Problems w/ Anesthesia, Family History of Problems w/ Anesthesia Additional Past Anesthesia/Blood Transfusion Reaction / Comment(s): Slow to Awaken, patient and daughter. Smoking Status: Former smoker - Past Family History Father Family Medical History: COPD, Diabetes Mellitus, Myocardial Infarction ([place]) Mother History Unknown: Yes Additional Family Medical History / Comment(s): at age 31 - cause unknown Brother(s) Family Medical History: Respiratory Disorder Additional Family Medical History / Comment(s): states kidney and heart history Sister(s) Family Medical History: Myocardial Infarction ([place]), Renal Disease Additional Family Medical History / Comment(s): dialysis Medications and Allergies Home Medications Medication Instructions Recorded Confirmed Type HYDROcodone/APAP 7.5-325MG [[place] 1 tab PO HS 05/26/16 02/16/21 History 7.5-325] calcitrioL [Rocaltrol] 0.25 mcg PO MOFR 03/27/19 02/16/21 History Vit C/E/Zn/Coppr/Lutein/Zeaxan 1 cap PO DAILY 04/02/19 02/16/21 History [Preservision Areds 2 Softgel] Ferrous Sulfate [Iron (65 MG 325 mg PO DAILY 10/02/20 02/16/21 History Elemental)] Furosemide [Lasix] 40 mg PO MOWEFR 01/27/21 02/16/21 History Warfarin Sodium [Jantoven] 2.5 mg PO DAILY 01/27/21 02/16/21 History ALPRAZolam [Xanax] 0.25 mg PO QID PRN #12 tab 02/08/21 02/16/21 Rx Acetaminophen Tab [Tylenol] 650 mg PO Q6HR PRN tab 02/08/21 02/16/21 Rx Darbepoetin Juaquin [Aranesp] 40 mcg SQ Q7D syringe 02/08/21 02/16/21 Rx Ipratropium-Albuterol Nebulize 3 ml INHALATION QID 30 Days #120 02/08/2102/16 Rx [Duoneb 0.5 mg-3 mg/3 ml Soln] neb Ipratropium-Albuterol Nebulize 3 ml INHALATION RT-QID PRN ml 02/08/21 02/16/21 Rx [Duoneb 0.5 mg-3 mg/3 ml Soln] Sennosides [Senokot] 8.6 mg PO DAILY 30 Days #30 tab 02/08/21 02/16/21 Rx Sodium Bicarbonate Tab 650 mg PO DAILY 30 Days #30 tab 02/08/21 02/16/21 Rx calcium polycarbophiL [Fibercon] 625 mg PO DAILY 30 Days #30 tab 02/08/2109/27 Rx Budesonide [Pulmicort Flexhaler] 2 puff INHALATION RT-BID 02/16/21 02/16/21 History predniSONE See Taper PO DIRECTED 05/12/21 05/12/21 History Allergies Allergy/AdvReac Type Severity Reaction Status Date / Time No Known Allergies Allergy Verified 02/16/21 21:36 Physical Exam Vitals: Vital Signs Temp Pulse Pulse Resp BP BP Pulse Ox 02/17/21 12:04 98.3 F 107 H 20 153/88 97 02/17/21 12:00 107 H 20 153/88 97 02/17/21 11:00 20 97 02/17/21 10:00 107 H 20 97 02/17/21 09:00 103 H 18 97 02/17/21 08:54 114 H 02/17/21 08:35 110 H 02/17/21 08:00 105 H 22 153/88 97 02/17/21 07:00 98.4 F 110 H 18 159/84 94 L 02/17/21 06:57 105 H 20 165/88 97 02/17/21 06:00 105 H 22 145/85 94 L 02/17/21 05:27 103 H 02/17/21 05:17 105 H 02/17/21 05:00 92 22 145/85 99 02/17/21 04:00 75 22 145/85 97 02/17/21 03:00 77 14 148/68 98 02/17/21 02:00 78 18 145/85 98 02/17/21 01:00 18 97 02/17/21 00:00 97 02/16/21 23:00 98 02/16/21 22:21 93 20 149/81 99 02/16/21 21:40 20 02/16/21 21:07 98.4 F 98 18 146/79 99 Intake and Output 02/16/21 02/17/21 02/17/21 22:59 06:59 14:59 Other: Voiding Method Incontinent # Voids 2 Weight 64.864 kg 64.864 kg Results 02/16/21 21:27 02/16/21 21:27 Cardiac Enzymes 02/16/21 02/16/21 02/17/21 Range/Units 21:27 21:27 00:51 AST 19 (14-36) U/L Troponin I 0.057 H* 0.061 H* (0.000-0.034) ng/mL 02/17/21 Range/Units 03:32 AST (14-36) U/L Troponin I 0.064 H* (0.000-0.034) ng/mL Coagulation 02/16/21 02/17/21 Range/Units 21:27 08:36 PT 15.2 H 14.4 H (9.0-12.0) sec APTT 27.1 (22.0-30.0) sec CBC 02/16/21 Range/Units 21:27 WBC 12.2 H (3.8-10.6) k/uL RBC 2.74 L (3.80-5.40) m/uL Hgb 8.3 L (11.4-16.0) gm/dL Hct 26.4 L (34.0-46.0) % Plt Count 188 (150-450) k/uL Comprehensive Metabolic Panel 02/16/21 Range/Units 21:27 Sodium 135 L (137-145) mmol/L Potassium 5.6 H (3.5-5.1) mmol/L Chloride 99 (98-107) mmol/L Carbon Dioxide 31 H (22-30) mmol/L BUN 87 H (7-17) mg/dL Creatinine 3.34 H (0.52-1.04) mg/dL Glucose 110 H (74-99) mg/dL Calcium 10.0 (8.4-10.2) mg/dL AST 19 (14-36) U/L ALT 17 (4-34) U/L Alkaline Phosphatase 41 (38-126) U/L Total Protein 5.7 L (6.3-8.2) g/dL Albumin 3.0 L (3.5-5.0) g/dL Current Medications Generic Name Dose Route Start Last Admin Trade Name Freq PRN Reason Stop Dose Admin Acetaminophen 650 mg 02/16/21 22:43 Acetaminophen Tab 325 Mg Tab PO Q6HR PRN Mild Pain Hydrocodone Bitart/Acetaminophen 1 each 02/17/21 21:00 Hydrocodone/Apap 7.5-325mg 1 Each Tab PO HS ALONA Albuterol/Ipratropium 3 ml 02/17/21 09:00 02/17/21 08:33 Ipratropium-Albuterol 3 Ml Neb INHALATION 3 ml QID ALONA Administration Albuterol/Ipratropium 3 ml 02/16/21 22:43 02/17/21 05:17 Ipratropium-Albuterol 3 Ml Neb INHALATION 3 ml RT-QID PRN Administration Shortness Of Breath Alprazolam 0.25 mg 02/16/21 22:43 02/17/21 08:45 Alprazolam 0.25 Mg Tab PO 0.25 mg QID PRN Administration Anxiety Budesonide 1 mg 02/17/21 09:00 02/17/21 08:52 Budesonide 1 Mg/2 Ml Nebu INHALATION 1 mg RT-BID ALONA Administration Calcitriol 0.25 mcg 02/18/21 09:00 Calcitriol 0.25 Mcg Cap PO MOFR [facility] Calcium Polycarbophil 625 mg 02/17/21 09:00 02/17/21 08:45 Calcium Polycarbophil 625 Mg Tab PO 625 mg DAILY AL[facility] Administration Darbepoetin Juaquin 40 mcg 02/17/21 09:00 02/17/21 08:45 Darbepoetin Juaquin 40 Mcg/0.4 Ml Syringe SQ 40 mcg Q7D [facility] Administration Ferrous Sulfate 325 mg 02/17/21 09:00 02/17/21 08:45 Ferrous Sulfate 325 Mg Tab PO 325 mg DAILY [facility] Administration Furosemide 60 mg 02/17/21 21:00 Furosemide 10 Mg/Ml 10 Ml Vial IV Q12HR [facility] Miscellaneous Information 0 each 02/17/21 08:05 Warfarin Per Pharmacy MISCELLANE DIRECTED PRN PER PROTOCOL Multivitamins/Minerals 1 each 02/17/21 09:00 02/17/21 08:45 Vit A,C & Q-Fhbpzn-Eenpswdb 1 Each Tab PO 1 each DAILY [facility] Administration Prednisone 10 mg 02/18/21 09:00 Prednisone 10 Mg Tab PO 02/20/21 09:01 DAILY [facility] Senna 8.6 mg 02/17/21 09:00 02/17/21 08:45 Sennosides 8.6 Mg Tab PO 8.6 mg DAILY [facility] Administration Sodium Bicarbonate 650 mg 02/17/21 09:00 02/17/21 08:45 Sodium Bicarbonate Tab 650 Mg Tab PO 650 mg DAILY [facility] Administration Warfarin Sodium 5 mg 02/17/21 18:00 Warfarin 5 Mg Tab PO 02/17/21 18:01 ONCE ONE Protocol Warfarin Sodium 3 mg 02/18/21 18:00 Warfarin 3 Mg Tab PO DAILY@1800 [facility] Intake and Output 02/16/21 02/17/21 02/17/21 22:59 06:59 14:59 Other: Voiding Method Incontinent # Voids 2 Weight 64.864 kg 64.864 kg Patient Weight 02/18/21 06:59 Weight 64.864 kg 02/16/21 21:27 02/16/21 21:27
[2021-02-17] MEDS ORDERED: VANCOMYCIN IV PER PHARMACY 1 EACH MISC MISCELLANE PRN (14:40)
--- NOTE | 2021-02-17 15:23 | HP ---
HISTORY AND PHYSICAL DATE OF SERVICE: 02/17/2021. CHIEF COMPLAINT: Shortness of breath. HISTORY OF PRESENT ILLNESS: This 80-year-old woman who had a past medical history of multiple medical problems including history of atrial fibrillation, COPD, DVT, hypertension, hyperlipidemia, being followed by Dr. Petersen in the outpatient setting, was recently admitted to [facility] with COPD exacerbation and acute hypoxic respiratory failure. The patient also had mild fluid overload at that time. The patient treated symptomatically. Patient improved significantly. Patient went home and currently the patient is having increasing shortness of breath. The patient also had developed cough and the patient became increasing shortness of breath, the patient came to [facility] and was admitted for further evaluation and treatment. Initial evaluation showed white count elevated to 12.2, INR is 1.4, potassium 5.6, creatinine is 3.34, which is worse recently. Troponins were found to be 0.057. Covid 19 was negative and the patient admitted for further evaluation and treatment. A chest x-ray done in the ER which was reviewed personally by me showed bilateral infiltrate and maybe some fluid overload and possible pneumonia. There is no history of fever, rigors or chills at this time. PAST MEDICAL HISTORY: History of atrial fibrillation, COPD, DVT, hypertension, hyperlipidemia, DJD, history of pneumonia. MEDICATIONS: Prior to admission include home medications are: Prednisone, Coumadin, Senna, DuoNeb, Lasix, Aranesp, Pulmicort, Tylenol, Xanax. Doses reviewed. ALLERGIES: None. FAMILY HISTORY: History of COPD, diabetes, myocardial infarction. SOCIAL HISTORY: Previous history of smoking. No history of alcohol. REVIEW OF SYSTEMS: ENT: Diminished vision. Diminished hearing. CARDIOVASCULAR as mentioned earlier. RESPIRATORY: As mentioned earlier. GI: As mentioned earlier. no dysuria. NERVOUS SYSTEMS: No numbness or weakness. ALLERGY/IMMUNOLOGY: No asthma or hayfever. MUSCULOSKELETAL as mentioned earlier. HEMATOLOGY/ONCOLOGY: No history of anemia. ENDOCRINE: As mentioned earlier. CONSTITUTIONAL: As mentioned earlier. DERMATOLOGY: Negative. RHEUMATOLOGY: Negative. PSYCHIATRIC: As mentioned earlier. PHYSICAL EXAM: The patient is alert and oriented times three. Pulse is 107, blood pressure 140/88, respiration 20, temperature 98.3, pulse ox is 97% on 4 L. HEENT: Conjunctivae normal. Oral mucosa moist. NECK is no jugular venous distention. No carotid bruit. No lymph node enlargement. CARDIOVASCULAR : S1, S2 muffled. RESPIRATION: Breath sounds diminished in the bases. A few scattered rhonchi and crackles. ABDOMEN: Soft, nontender. No mass palpable. LEGS: No edema. No swelling. NERVOUS SYSTEM: Higher functions as mentioned earlier. Moves all 4 limbs. No focal motor or sensory deficits. LYMPHATICS: No lymph nodes palpable in the neck, axillae or groin. SKIN: No ulcer, rash or bleeding. LABS: At this time shows: WBC 12.8, hemoglobin is 8.3, INR 1.5, sodium 135, potassium 5.6 and creatinine 3.34. ASSESSMENT: 1. Shortness of breath multifactorial with possible chronic obstructive pulmonary disease acute exacerbation as well as possible pneumonia. 2. Consider healthcare associated pneumonia. 3. Chronic kidney disease stage 4. 4. Congestive heart failure acute exacerbation with acute on chronic diastolic dysfunction, ejection fraction 55-60 percent. 5. Hyponatremia. 6. Hyperkalemia. 7. Troponin 0.057 of indeterminate nature. 8. Elevated WBC with neutrophilic pleocytosis. 9. Anemia, normocytic, anemia of chronic disease. 10.History of atrial fibrillation. 11.History of deep vein thrombosis. 12.Hypertension. 13.Hyperlipidemia. 14.History of DJD. 15.History of pneumonia. 16.History of right lung cancer and surgery. 17.History of chronic hypoxic respiratory failure on home O2. 18.Tubal ligation. RECOMMENDATIONS AND DISCUSSION: This 80-year-old woman presented with multiple complex medical issues, we will monitor the patient closely, continue the current medications, management and symptomatic treatment. Otherwise, at this time, we will initiate broad-spectrum IV antibiotics as well as bronchodilators. I would recommend Cardiology and pulmonary consultations and as well as nephrology consultations. Once again the prognosis is extremely guarded because of multiple complex medical issues. Further recommendations to follow. A copy of dictation being forwarded to Dr. Petersen who is the primary physician. MMDOROTEOL / MALAN: [id number] /
[2021-02-17] MEDS ORDERED: VANCOMYCIN 1,250 MG in SODIUM CHLORIDE 0.9% 250 ML IVPB ONE (15:30)
--- NOTE | 2021-02-17 15:50 | P.CNPUL ---
History of Present Illness Consult date: 02/17/21 Requesting physician: Pedro Pablo Joseph Reason for consult: dyspnea Chief complaint: Shortness of breath History of present illness: This 80-year-old white female patient with past medical history of paroxysmal small atrial fibrillation on Coumadin, COPD on home oxygen at 5 L, squamous cell carcinoma of the lung diagnosed in 2019, history of smoking, history of chronic congestive heart failure, hypertension, hyperlipidemia, osteoarthritis, hypothyroidism, previous history of abdominal aortic aneurysm with endovascular stent grafting. Patient follows with Dr. Charles in the outpatient setting. She was recently hospitalized for acute exacerbation of COPD with acute hypoxic respiratory failure, patient also had some mild fluid overload at that time. Patient was doing better, however she started developing increased shortness of breath, and cough and she came into the emergency department for reevaluation and treatment. Chest x-ray was completed in the ER which showed bilateral infi ltrates the possibility of fluid overload or pneumonia, however patient denies any fever, denies any chills. Her admission blood work was reviewed showing white blood cell count of 12.2, hemoglobin is 8.3, INR is 1.5, potassium is 5.6, B1 is 87, creatinine is 3.3-4, lactic acid was 1, proBNP was 37,900, patient had a mild troponin leak of 0.057, 0.061, and 0.064. She was tested for coronavirus and was found to be negative. She is currently on 4 L of oxygen her pulse ox is 97%, EKG showed normal sinus rhythm. She was started on IV Lasix 50 mg every 12 hours, and she was placed on empiric antibiotics in the form of Zosyn and vancomycin. She is on IV steroids with Solu-Medrol 60 g every 6 hours, and breathing treatments. She short of breath, she is wheezing, but no acute distress, she does have lower extremity swelling. Review of Systems All systems: negative Constitutional: Denies chills, Denies fever Eyes: denies blurred vision, denies pain Ears, nose, mouth and throat: Denies headache, Denies sore throat Cardiovascular: Reports decreased exercise tolerance, Reports leg edema, Denies chest pain, Denies shortness of breath Respiratory: Reports dyspnea, Reports home oxygen, Reports wheezing, Denies cough Gastrointestinal: Denies abdominal pain, Denies diarrhea, Denies nausea, Denies vomiting Genitourinary: Denies dysuria, Denies hematuria Musculoskeletal: Denies myalgias Integumentary: Denies pruritus, Denies rash Neurological: Denies numbness, Denies weakness Psychiatric: Denies anxiety, Denies depression Endocrine: Denies fatigue, Denies weight change Past Medical History Past Medical History: Atrial Fibrillation, Cancer, COPD, Deep Vein Thrombosis (DVT), Eye Disorder, Hyperlipidemia, Hypertension, Osteoarthritis (OA), Pneumonia, Renal Disease, Thyroid Disorder Additional Past Medical History / Comment(s): Pt recently admitted to [facility] on 01/29/21 with exacerbation COPD/tracheobronchitis. Other hx: 2019 diagnosed with R lung cancer and had surgery, pneumonia with sepsis, home oxygen ATC, DVT L arm with surgery, CKD stage III, chronic anemia, diverticular disease, bilateral macular degeneration, bilateral lower leg edema, past gout, valvular disease. History of Any Multi-Drug Resistant Organisms: None Reported Past Surgical History: Tubal Ligation Additional Past Surgical History / Comment(s): L arm thromboembolectomy, endurant abdominal stent graft feb 28 2016, thorascopic R wedge resection, colonoscopy, bilateral cataract removals Past Anesthesia/Blood Transfusion Reactions: Previous Problems w/ Anesthesia, Family History of Problems w/ Anesthesia Additional Past Anesthesia/Blood Transfusion Reaction / Comment(s): Slow to Awaken, patient and daughter. Smoking Status: Former smoker - Past Family History Father Family Medical History: COPD, Diabetes Mellitus, Myocardial Infarction ([place]) Mother History Unknown: Yes Additional Family Medical History / Comment(s): at age 31 - cause unknown Brother(s) Family Medical History: Respiratory Disorder Additional Family Medical History / Comment(s): states kidney and heart history Sister(s) Family Medical History: Myocardial Infarction ([place]), Renal Disease Additional Family Medical History / Comment(s): dialysis Medications and Allergies Home Medications Medication Instructions Recorded Confirmed Type HYDROcodone/APAP 7.5-325MG [[place] 1 tab PO HS 05/26/16 02/16/21 History 7.5-325] calcitrioL [Rocaltrol] 0.25 mcg PO MOFR 03/27/19 02/16/21 History Vit C/E/Zn/Coppr/Lutein/Zeaxan 1 cap PO DAILY 04/02/19 02/16/21 History [Preservision Areds 2 Softgel] Ferrous Sulfate [Iron (65 MG 325 mg PO DAILY 10/02/20 02/16/21 History Elemental)] Furosemide [Lasix] 40 mg PO MOWEFR 01/27/21 02/16/21 History Warfarin Sodium [Jantoven] 2.5 mg PO DAILY 01/27/21 02/16/21 History ALPRAZolam [Xanax] 0.25 mg PO QID PRN #12 tab 02/08/21 02/16/21 Rx Acetaminophen Tab [Tylenol] 650 mg PO Q6HR PRN tab 02/08/21 02/16/21 Rx Darbepoetin Juaquin [Aranesp] 40 mcg SQ Q7D syringe 02/08/21 02/16/21 Rx Ipratropium-Albuterol Nebulize 3 ml INHALATION QID 30 Days #120 02/08/21 02/16/21 Rx [Duoneb 0.5 mg-3 mg/3 ml Soln] neb Ipratropium-Albuterol Nebulize 3 ml INHALATION RT-QID PRN ml 02/08/21 02/16/21 Rx [Duoneb 0.5 mg-3 mg/3 ml Soln] Sennosides [Senokot] 8.6 mg PO DAILY 30 Days #30 tab 02/08/21 02/16/21 Rx Sodium Bicarbonate Tab 650 mg PO DAILY 30 Days #30 tab 02/08/21 02/16/21 Rx calcium polycarbophiL [Fibercon] 625 mg PO DAILY 30 Days #30 tab 02/08/21 02/16/21 Rx Budesonide [Pulmicort Flexhaler] 2 puff INHALATION RT-BID 02/16/21 02/16/21 History predniSONE See Taper PO DIRECTED 02/16/21 02/16/21 History Allergies Allergy/AdvReac Type Severity Reaction Status Date / Time No Known Allergies Allergy Verified 02/16/21 21:36 Physical Exam Vitals: Vital Signs Temp Pulse Pulse Resp BP BP Pulse Ox 02/17/21 15:12 108 H 02/17/21 15:02 104 H 02/17/21 12:04 98.3 F 107 H 20 153/88 97 02/17/21 12:00 107 H 20 153/88 97 02/17/21 11:00 20 97 02/17/21 10:00 107 H 20 97 05/13/21 09:00 103 H 18 97 02/17/21 08:54 114 H 02/17/21 08:35 110 H 02/17/21 08:00 105 H 22 153/88 97 02/17/21 07:00 98.4 F 110 H 18 159/84 94 L 02/17/21 06:57 105 H 20 165/88 97 02/17/21 06:00 105 H 22 145/85 94 L 02/17/21 05:27 103 H 02/17/21 05:17 105 H 02/17/21 05:00 92 22 145/85 99 02/17/21 04:00 75 22 145/85 97 02/17/21 03:00 77 14 148/68 98 02/17/21 02:00 78 18 145/85 98 02/17/21 01:00 18 97 02/17/21 00:00 97 02/16/21 23:00 98 02/16/21 22:21 93 20 149/81 99 02/16/21 21:40 20 02/16/21 21:07 98.4 F 98 18 146/79 99 Intake and Output 02/17/21 02/17/21 02/17/21 06:59 14:59 22:59 Other: Voiding Method Incontinent # Voids 2 Weight 64.864 kg GENERAL EXAM: Alert, very pleasant, 80-year-old white female, on 4 L of oxygen, with pulse ox of 97%, comfortable in no apparent distress. HEAD: Normocephalic/atraumatic. EYES: Normal reaction of pupils, equal size. Conjunctiva pink, sclera white. NOSE: Clear with pink turbinates. THROAT: No erythema or exudates. NECK: No masses, no JVD, no thyroid enlargement, no adenopathy. CHEST: No chest wall deformity. Symmetrical expansion. LUNGS: Equal air entry with diffuse crackles at bilateral bases and mild wheezes CVS: Regular rate and rhythm, normal S1 and S2, no gallops, no murmurs, no rubs ABDOMEN: Soft, nontender. No hepatosplenomegaly, normal bowel sounds, no guarding or rigidity. EXTREMITIES: No clubbing, 2+ lower extremity edema involving bilateral lower extremities, no cyanosis, 2+ pulses and upper and lower extremities. MUSCULOSKELETAL: Muscle strength and tone normal. SPINE: No scoliosis or deformity SKIN: No rashes CENTRAL NERVOUS SYSTEM: Alert and oriented -3. No focal deficits, tone is normal in all 4 extremities. PSYCHIATRIC: Alert and oriented -3. Appropriate affect. Intact judgment and insight. Results - Laboratory Findings CBC and BMP: 02/16/21 21:27 02/16/21 21:27 PT/INR, D-dimer PT 14.4 sec (9.0-12.0) H 02/17/21 08:36 INR 1.4 (<1.2) H 02/17/21 08:36 Abnormal lab findings: Abnormal Labs 02/16/21 02/16/21 02/16/21 21:27 21:27 21:27 WBC 12.2 H RBC 2.74 L Hgb 8.3 L Hct 26.4 L RDW 16.8 H Neutrophils # 11.1 H Lymphocytes # 0.4 L PT 15.2 H INR 1.5 H Sodium 135 L Potassium 5.6 H Carbon Dioxide 31 H BUN 87 H Creatinine 3.34 H Glucose 110 H Magnesium 2.5 H Troponin I Total Protein 5.7 L Albumin 3.0 L 02/16/21 02/17/21 02/17/21 21:27 00:51 03:32 WBC RBC Hgb Hct RDW Neutrophils # Lymphocytes # PT INR Sodium Potassium Carbon Dioxide BUN Creatinine Glucose Magnesium Troponin I 0.057 H* 0.061 H* 0.064 H* Total Protein Albumin 02/17/21 08:36 WBC RBC Hgb Hct RDW Neutrophils # Lymphocytes # PT 14.4 H INR 1.4 H Sodium Potassium Carbon Dioxide BUN Creatinine Glucose Magnesium Troponin I Total Protein Albumin - Diagnostic Findings Chest x-ray: report reviewed, image reviewed Additional studies: EKG reviewed, previous echocardiogram from 10/02/2020 reviewed Assessment and Plan Plan: Assessment: #1. Dyspnea related to acute exacerbation of CHF with diastolic dysfunction, doubt underlying pneumonia, although not completely excluding the possibility #2. Acute exacerbation of COPD #3. Recent hospitalization for acute exacerbation of CHF, discharged home on 02/08/2021 #4. Stage III COPD, with baseline FEV1 of 54% predicted, on home oxygen #5. History of chronic kidney disease stage III at baseline #6. Acute kidney injury #7. History of paroxysmal A. fib, currently in sinus rhythm, on Coumadin #8. Previous history of DVT #9. Hypertension #10. Hyperlipidemia #11. Hypothyroidism #12. History of squamous cell carcinoma of the right lung, status post thoracoscopic wedge resection of the right lower lobe on 05/01/2019 Plan: Continue current medical treatment Continue diuretics Continue antibiotics We'll send a pro-calcitonin Patient's presentation is more consistent with acute exacerbation of CHF Continue IV steroids Continue nebulized bronchodilators Follow-up labs Follow-up chest x-ray I performed a history & physical examination of the patient and discussed their management with my nurse practitioner, Rachele Bradshaw. I reviewed the nurse practitioner's note and agree with the documented findings and plan of care. Lung sounds are positive for diffuse crackles. The findings and the impression was discussed with the patient. I attest to the documentation by the nurse practitioner. Time with Patient: Greater than 30
[2021-02-17 15:54] VITALS: BMI 25.3
--- NOTE | 2021-02-17 15:57 | US ---
EXAMINATION TYPE: US kidneys/renal and bladder DATE OF EXAM: 02/17/2021 COMPARISON: 10/28/2020 CLINICAL HISTORY: good. good, history of renal cysts EXAM MEASUREMENTS: Right Kidney: 10.8 x 4.1 x 4.6 cm Left Kidney: 9.7 x 4.6 x 3.5 cm Right Kidney: multiple cystic areas noted, largest = 2.5 x 2.7 x 2.3cm Left Kidney: multiple cystic areas noted, largest = 4.1 x 3.8 x 4.1cm Bladder: appears wnl Bilateral Jets seen: yes There is no evidence for hydronephrosis at this point in time. No nephrolithiasis is seen. No solid masses are identified. The urinary bladder is anechoic. Bilateral ureteral jets are seen. IMPRESSION: Multiple renal cysts are redemonstrated. Hyperechoic cortex is suggestive medical renal disease.
[2021-02-17] MEDS: methylPREDNISolone SOD SUCCI 125 MG/2 ML VIAL IV SCH ×3 (17:07→23:31)
[2021-02-17] MEDS ORDERED: WARFARIN 5 MG TAB PO ONE (18:00)
[2021-02-17] MEDS: PIPERACILLIN-TAZOBACTAM 3.375 GM in SODIUM CHLORIDE 0.9% 100 ML IVPB SCH (18:09)
[2021-02-17] MEDS: HYDROcodone/APAP 7.5-325MG 1 EACH TAB PO SCH (19:47)
[2021-02-17] MEDS: FUROSEMIDE 10 MG/ML 10 ML VIAL IV SCH (19:48)
[2021-02-17] MEDS: SYMBICORT 160-4.5 MCG INHALER INHALATION SCH (20:50)
[2021-02-17] MEDS ORDERED: FUROSEMIDE 10 MG/ML 4 ML VIAL IV SCH (21:00)
[2021-02-17 22:19] LABS: % Iron Saturation 9.2 (12.00-45.00); Ferritin 739.7 ng/mL (10.0-291.0)
[2021-02-18] MEDS: PIPERACILLIN-TAZOBACTAM 3.375 GM in SODIUM CHLORIDE 0.9% 100 ML IVPB SCH ×2 (03:54→17:14)
[2021-02-18] MEDS: methylPREDNISolone SOD SUCCI 125 MG/2 ML VIAL IV SCH ×4 (05:39→23:58)
[2021-02-18 06:46] LABS: INR 1.7 (<1.2); Prothrombin Time 16.9 sec (9.0-12.0)
[2021-02-18] MEDS: IPRATROPIUM-ALBUTEROL 3 ML NEB INHALATION SCH ×4 (07:00→21:08)
[2021-02-18] MEDS: BUDESONIDE 1 MG/2 ML NEBU INHALATION SCH ×2 (07:00→21:05)
[2021-02-18] MEDS: SYMBICORT 160-4.5 MCG INHALER INHALATION SCH ×2 (07:00→21:07)
--- NOTE | 2021-02-18 07:38 | XR ---
EXAMINATION TYPE: XR chest 1V portable DATE OF EXAM: 02/18/2021 COMPARISON: Chest x-ray from yesterday. HISTORY: Shortness of breath. TECHNIQUE: Single frontal view of the chest is obtained. FINDINGS: There is redemonstration of bibasilar pleural effusion and compressive atelectasis. Patien t also has known fibrotic changes in the parenchyma of the lung bilaterally. Pneumonia and CHF are in the differential. Heart and mediastinum appear prominent as seen before. No pneumothorax. IMPRESSION: No significant change.
[2021-02-18] MEDS: FUROSEMIDE 10 MG/ML 10 ML VIAL IV SCH ×2 (08:46→20:24)
[2021-02-18] MEDS: PANTOPRAZOLE 40 MG TABLET PO SCH (08:46)
[2021-02-18] MEDS: SENNOSIDES 8.6 MG TAB PO SCH (08:46)
[2021-02-18] MEDS: SODIUM BICARBONATE TAB 650 MG TAB PO SCH (08:46)
[2021-02-18] MEDS: FERROUS SULFATE 325 MG TAB PO SCH (08:46)
[2021-02-18] MEDS: VIT A,C & E-LUTEIN-MINERALS 1 EACH TAB PO SCH (08:47)
[2021-02-18] MEDS ORDERED: predniSONE 10 MG TAB PO SCH (09:00)
[2021-02-18 09:11] LABS: Basophils # (A) 0 X 10*3/uL (0.00-0.10); Basophils % (A) 0 %; Eosinophils # (A) 0 X 10*3/uL (0.04-0.35); Eosinophils % (A) 0 %; HCT 27.7 % (37.2-46.3); HGB 8.2 g/dL (12.0-15.0); Lymphocytes # (A) 0.18 X 10*3/uL (0.90-5.00); Lymphocytes % (A) 2.5 %; MCH 29.5 pg (27.0-32.0); MCHC 29.6 g/dL (32.0-37.0); MCV 99.6 fL (80.0-97.0); Mean Platelet Volume 10.7 fL (9.5-12.2); Monocytes # (A) 0.08 X 10*3/uL (0.20-1.00); Monocytes % (A) 1.1 %; Neutrophils # (A) 6.77 X 10*3/uL (1.80-7.70); Neutrophils % (A) 95.8 %; Platelet Count 203 X 10*3/uL (140-440); RBC 2.78 X 10*6/uL (4.10-5.20); WBC 7.07 X 10*3/uL (4.50-10.00)
--- NOTE | 2021-02-18 10:27 | P.PN ---
Subjective Progress Note Date: 02/18/21 HISTORY OF PRESENT ILLNESS: This is a 80-year-old female with a past medical history significant for paroxysmal atrial fibrillation, COPD, DVT, hypertension, hyperlipidemia, chronic kidney disease, and former nicotine dependence. Patient follows in the office with Dr. David. We have been asked to see the patient in consultation for congestive heart failure. Patient examined at the bedside in the emergency room. Patient states she has been feeling short of breath for the past few days. She also reports increased lower extremity edema. She presented to the emergency room for further evaluation. Patient was given a dose of IV Lasix. Patient states her breathing has improved and she denies shortness of breath at the time of examination. She denies chest pain or pressure. Denies fever or chills. EKG reveals sinus mechanism with no signs of acute ischemia Chest xray congestive heart failure with pleural effusions. There is probably underlying pulmonary interstitial fibrosis. Laboratory data: WBC 12.2. Hemoglobin 8.3. Platelet count 188. INR 1.5. Sodium 135. Potassium 5.6. BUN 87. Creatinine 3.34. Troponin 0.057. 0.061. 0.064. BNP 37,900. Current home cardiac medications include Coumadin 2.5 mg daily and Lasix 40 mg Sunday Echocardiogram completed in September 2020 revealed ejection fraction 55-60%, mild to moderate mitral regurgitation, moderate tricuspid regurgitation, and moderate to severe pulmonary hypertension 02/18/2021 Patient examined this morning at the bedside. Patient denies chest pain or pressure. Patient reports her shortness of breath has significantly improved. She remains on IV Lasix. Fluid balance in the last 24 hours approximately 2 L. Basic metabolic panel from this morning is still pending. PHYSICAL EXAM: VITAL SIGNS: Reviewed. GENERAL: Well-developed in no acute distress. HEENT: Head is normocephalic. Pupils are equal, round. Sclerae anicteric. Mucous membranes of the mouth are moist. Neck supple. No JVD or thyromegaly LUNGS: Respirations even and unlabored. Lungs diminished expiratory wheezing noted HEART: Regular rate and rhythm. S1 and S2 heard. Systolic murmur noted. ABDOMEN: Soft. Nondistended. Nontender. EXTREMITIES: Normal range of motion. No clubbing or cyanosis. Peripheral pulses intact. 1-2+ bilateral lower extremity edema NEUROLOGIC: Awake and alert. Oriented x 3. ASSESSMENT: Acute exacerbation of chronic diastolic heart failure, ejection fraction 55-60% Paroxysmal atrial fibrillation, on anticoagulation with Coumadin Acute on chronic kidney disease Hypertension Hyperlipidemia Pulmonary hypertension COPD Former nicotine dependence PLAN: Continue current cardiac medications Continue diuretics per nephrology Monitor kidney function Accurate I&O Daily weights Continue coumadin. Monitor INR Further recommendations pending patient course Nurse practitioner note has been reviewed by physician. Signing provider agrees with the documented findings, assessment, and plan of care. Objective - Vital Signs Vital signs: Vital Signs Temp 98 F 02/18/21 07:00 Pulse 100 02/18/21 10:24 Resp 18 02/18/21 07:00 BP 146/76 02/18/21 07:00 Pulse Ox 94 L 02/18/21 07:00 Intake & Output 02/17/21 02/18/21 02/18/21 18:59 06:59 18:59 Intake Total 150 Output Total 2100 Balance 150 -2100 Weight 64.864 kg 69 kg Intake: Oral 150 Output: Urine 2100 Other: Voiding Method Incontinent Incontinent Incontinent # Voids 2 - Labs CBC & Chem 7: 02/18/21 05:42 02/16/21 21:27 Labs: Abnormal Lab Results - Last 24 Hours (Table) 02/17/21 02/18/21 02/18/21 Range/Units 08:36 05:42 05:42 RBC 2.78 L (4.10-5.20) X 10*6/uL Hgb 8.2 L (12.0-15.0) g/dL Hct 27.7 L (37.2-46.3) % MCV 99.6 H (80.0-97.0) fL MCHC 29.6 L (32.0-37.0) g/dL RDW 17.0 H (11.5-14.5) % Lymphocytes # 0.18 L (0.90-5.00) X 10*3/uL Monocytes # 0.08 L (0.20-1.00) X 10*3/uL Eosinophils # 0 L (0.04-0.35) X 10*3/uL PT 16.9 H (9.0-12.0) sec INR 1.7 H (<1.2) Iron 23 L (50-170) ug/dL % Saturation 9.20 L (12.00-45.00) Ferritin 739.7 H (10.0-291.0) ng/mL
[2021-02-18 10:32] LABS: African American GFR (CKD) 12.8 (60.0-200.0); Anion Gap 13.8 mmol/L (4.00-12.00); BUN/Creat Ratio 25.28 Ratio (12.00-20.00); Calcium 8.9 mg/dL (8.7-10.3); Carbon Dioxide 29.2 mmol/L (21.6-31.8); Magnesium 2.3 mg/dL (1.5-2.4); Non-African American GFR(CKD) 11.1 (60.0-200.0); Potassium 5.3 mmol/L (3.5-5.5)
[2021-02-18] MEDS: ALPRAZolam 0.25 MG TAB PO PRN ×2 (11:29→20:24)
--- NOTE | 2021-02-18 13:23 | P.PN ---
Subjective Patient is seen in follow-up for acute kidney injury and chronic kidney disease. Patient has chronic kidney disease stage IV. Renal function a little worse today from diuresis. Creatinine 3.6. She is maintained on IV Lasix. Nonoliguric. On 4 L nasal cannula. Blood pressure stable. Vital signs are stable. General: The patient appeared well nourished and normally developed. HEENT: Head exam is unremarkable. Neck is without jugular venous distension. LUNGS: Breath sounds decreased. HEART: Rate and Rhythm are regular. ABDOMEN: Soft, no distention. EXTREMITITES: 1+ edema. Objective - Vital Signs Vital signs: Vital Signs Temp 98 F 02/18/21 07:00 Pulse 108 H 02/18/21 10:33 Resp 18 02/18/21 07:00 BP 146/76 02/18/21 07:00 Pulse Ox 94 L 02/18/21 07:00 Intake & Output 02/17/21 02/18/21 02/18/21 18:59 06:59 18:59 Intake Total 150 Output Total 2100 Balance 150 -2100 Weight 64.864 kg 69 kg Intake: Oral 150 Output: Urine 2100 Other: Voiding Method Incontinent Incontinent Incontinent # Voids 2 - Labs CBC & Chem 7: 02/18/21 05:42 02/18/21 05:42 Labs: Abnormal Lab Results - Last 24 Hours (Table) 02/17/21 02/18/21 02/18/21 Range/Units 08:36 05:42 05:42 RBC 2.78 L (4.10-5.20) X 10*6/uL Hgb 8.2 L (12.0-15.0) g/dL Hct 27.7 L (37.2-46.3) % MCV 99.6 H (80.0-97.0) fL MCHC 29.6 L (32.0-37.0) g/dL RDW 17.0 H (11.5-14.5) % Lymphocytes # 0.18 L (0.90-5.00) X 10*3/uL Monocytes # 0.08 L (0.20-1.00) X 10*3/uL Eosinophils # 0 L (0.04-0.35) X 10*3/uL PT 16.9 H (9.0-12.0) sec INR 1.7 H (<1.2) Anion Gap (4.00-12.00) mmol/L BUN (9.0-27.0) mg/dL Creatinine (0.6-1.5) mg/dL Est GFR (CKD-EPI)AfAm (60.0-200.0) Est GFR (CKD-EPI)NonAf (60.0-200.0) BUN/Creatinine Ratio (12.00-20.00) Ratio Glucose (70-110) mg/dL Iron 23 L (50-170) ug/dL % Saturation 9.20 L (12.00-45.00) Ferritin 739.7 H (10.0-291.0) ng/mL 02/18/21 Range/Units 05:42 RBC (4.10-5.20) X 10*6/uL Hgb (12.0-15.0) g/dL Hct (37.2-46.3) % MCV (80.0-97.0) fL MCHC (32.0-37.0) g/dL RDW (11.5-14.5) % Lymphocytes # (0.90-5.00) X 10*3/uL Monocytes # (0.20-1.00) X 10*3/uL Eosinophils # (0.04-0.35) X 10*3/uL PT (9.0-12.0) sec INR (<1.2) Anion Gap 13.80 H (4.00-12.00) mmol/L BUN 91.0 H (9.0-27.0) mg/dL Creatinine 3.6 H (0.6-1.5) mg/dL Est GFR (CKD-EPI)AfAm 12.8 L (60.0-200.0) Est GFR (CKD-EPI)NonAf 11.1 L (60.0-200.0) BUN/Creatinine Ratio 25.28 H (12.00-20.00) Ratio Glucose 132 H (70-110) mg/dL Iron (50-170) ug/dL % Saturation (12.00-45.00) Ferritin (10.0-291.0) ng/mL Assessment and Plan Plan: Assessment: 1. Acute kidney injury secondary to ATN secondary to cardiorenal syndrome. Creatinine 3.6 today. No hydronephrosis noted on kidney ultrasound. 2. Chronic kidney disease stage IV with baseline creatinine near 2.3 in January 2021. However since her last discharge her creatinine is been in the range of 3-3.5. 3. Acute on chronic diastolic CHF and mild to moderate mitral and tricuspid regurgitation. 4. Pulmonary hypertension. 5. Anemia of chronic kidney disease. Iron deficiency noted. On Aranesp. 6. Chronic kidney disease mineral bone disease maintained on calcitriol. 7. Volume overload. Improving with diuresis. Plan: Maintain IV Lasix 60 mg twice daily. Low-salt diet and 1500 mL fluid restriction. Strict is and os. Add IV iron. Avoid nephrotoxins. Continue to monitor renal function and urine output. Continue to assess daily for need for renal replacement therapy. No urgency at this time. Case discussed with the patient's daughter Dina over the phone.
--- NOTE | 2021-02-18 13:31 | P.PN ---
Subjective Progress Note Date: 02/18/21 Principal diagnosis: Acute exacerbation of diastolic congestive heart failure This 80-year-old white female patient with past medical history of paroxysmal small atrial fibrillation on Coumadin, COPD on home oxygen at 5 L, squamous cell carcinoma of the lung diagnosed in 2019, history of smoking, history of chronic congestive heart failure, hypertension, hyperlipidemia, osteoarthritis, hypothyroidism, previous history of abdominal aortic aneurysm with endovascular stent grafting. Patient follows with Dr. Charles in the outpatient setting. She was recently hospitalized for acute exacerbation of COPD with acute hypoxic respiratory failure, patient also had some mild fluid overload at that time. Patient was doing better, however she started developing increased shortness of breath, and cough and she came into the emergency department for reevaluation and treatment. Chest x-ray was completed in the ER which showed bilateral infiltrates the possibility of fluid overload or pneumonia, however patient denies any fever, denies any chills. Her admission blood work was reviewed showing white blood cell count of 12.2, hemoglobin is 8.3, INR is 1.5, potassium is 5.6, B1 is 87, creatinine is 3.3-4, lactic acid was 1, proBNP was 37,900, patient had a mild troponin leak of 0.057, 0.061, and 0.064. She was tested for coronavirus and was found to be negative. She is currently on 4 L of oxygen her pulse ox is 97%, EKG showed normal sinus rhythm. She was started on IV Lasix 50 mg every 12 hours, and she was placed on empiric antibiotics in the form of Zosyn and vancomycin. She is on IV steroids with Solu-Medrol 60 g every 6 hours, and breathing treatments. She short of breath, she is wheezing, but no acute distress, she does have lower extremity swelling. The patient is seen today in 02/18/2021 in follow-up on the regular medical floor. She is awake and alert in no acute distress. Sitting up in bed having lunch. Breathing a bit easier today compared to yesterday. She is maintaining O2 saturation in the 90s on 4 L/m per nasal cannula. She's been afebrile. Chest x-ray reveals bibasilar pleural effusions and compressive atelectasis. Stable compared to previous. White count 7.0. Hemoglobin 8.2. INR 1.7. Sodium 140. Potassium 5.2. Creatinine 3.6. She remains on DuoNeb inhalations, Symbicort, IV Solu-Medrol. Continued on IV Lasix 60 mg every 12 hours. Antibiotics in the form of vancomycin and Zosyn. Anticoagulated with warfarin. Objective - Vital Signs Vital signs: Vital Signs Temp 98 F 02/18/21 07:00 Pulse 108 H 02/18/21 10:33 Resp 18 02/18/21 07:00 BP 146/76 02/18/21 07:00 Pulse Ox 94 L 02/18/21 07:00 Intake & Output 02/17/21 02/18/21 02/18/21 18:59 06:59 18:59 Intake Total 150 Output Total 2100 Balance 150 -2100 Weight 64.864 kg 69 kg Intake: Oral 150 Output: Urine 2100 Other: Voiding Method Incontinent Incontinent Incontinent # Voids 2 - Exam GENERAL EXAM: Alert, pleasant 81-year-old female patient, on 4 L nasal cannula, comfortable in no apparent distress. HEAD: Normocephalic. EYES: Normal reaction of pupils, equal size. NOSE: Clear with pink turbinates. THROAT: No erythema or exudates. NECK: No masses, no JVD. CHEST: No chest wall deformity. LUNGS: Equal air entry with crackles in the bilateral posterior bases CVS: S1 and S2 normal with no audible murmur, regular rhythm. ABDOMEN: No hepatosplenomegaly, normal bowel sounds, no guarding or rigidity. SPINE: No scoliosis or deformity SKIN: No rashes CENTRAL NERVOUS SYSTEM: No focal deficits, tone is normal in all 4 extremities. EXTREMITIES: There is trace peripheral edema. No clubbing, no cyanosis. Peripheral pulses are intact. - Labs CBC & Chem 7: 02/18/21 05:42 02/18/21 05:42 Labs: Abnormal Lab Results - Last 24 Hours (Table) 02/17/21 02/18/21 02/18/21 Range/Units 08:36 05:42 05:42 RBC 2.78 L (4.10-5.20) X 10*6/uL Hgb 8.2 L (12.0-15.0) g/dL Hct 27.7 L (37.2-46.3) % MCV 99.6 H (80.0-97.0) fL MCHC 29.6 L (32.0-37.0) g/dL RDW 17.0 H (11.5-14.5) % Lymphocytes # 0.18 L (0.90-5.00) X 10*3/uL Monocytes # 0.08 L (0.20-1.00) X 10*3/uL Eosinophils # 0 L (0.04-0.35) X 10*3/uL PT 16.9 H (9.0-12.0) sec INR 1.7 H (<1.2) Anion Gap (4.00-12.00) mmol/L BUN (9.0-27.0) mg/dL Creatinine (0.6-1.5) mg/dL Est GFR (CKD-EPI)AfAm (60.0-200.0) Est GFR (CKD-EPI)NonAf (60.0-200.0) BUN/Creatinine Ratio (12.00-20.00) Ratio Glucose (70-110) mg/dL Iron 23 L (50-170) ug/dL % Saturation 9.20 L (12.00-45.00) Ferritin 739.7 H (10.0-291.0) ng/mL 02/18/21 Range/Units 05:42 RBC (4.10-5.20) X 10*6/uL Hgb (12.0-15.0) g/dL Hct (37.2-46.3) % MCV (80.0-97.0) fL MCHC (32.0-37.0) g/dL RDW (11.5-14.5) % Lymphocytes # (0.90-5.00) X 10*3/uL Monocytes # (0.20-1.00) X 10*3/uL Eosinophils # (0.04-0.35) X 10*3/uL PT (9.0-12.0) sec INR (<1.2) Anion Gap 13.80 H (4.00-12.00) mmol/L BUN 91.0 H (9.0-27.0) mg/dL Creatinine 3.6 H (0.6-1.5) mg/dL Est GFR (CKD-EPI)AfAm 12.8 L (60.0-200.0) Est GFR (CKD-EPI)NonAf 11.1 L (60.0-200.0) BUN/Creatinine Ratio 25.28 H (12.00-20.00) Ratio Glucose 132 H (70-110) mg/dL Iron (50-170) ug/dL % Saturation (12.00-45.00) Ferritin (10.0-291.0) ng/mL Assessment and Plan Assessment: 1 Acute on chronic hypoxemic respiratory failure related to acute exacerbation of CHF with diastolic dysfunction, doubt underlying pneumonia, although not completely excluded 2 Acute exacerbation of COPD 3 Recent hospitalization for acute exacerbation of CHF, discharged home on 02/08/2021 4 Stage III COPD, with baseline FEV1 of 54% predicted, on home oxygen 5 History of chronic kidney disease stage III at baseline 6 Acute kidney injury 7 History of paroxysmal A. fib, currently in sinus rhythm, on Coumadin 8 Previous history of DVT 9 Hypertension 10 Hyperlipidemia 11 Hypothyroidism 12 History of squamous cell carcinoma of the right lung, status post thoracoscopic wedge resection of the right lower lobe on 05/01/2019 Plan: The patient was seen and evaluated by Dr. Petersen Improved today compared to yesterday Continue with the current treatment plan Procalcitonin still pending May be able to de-escalate antibiotics Titrate the FiO2 as tolerated Increase her activity as tolerated We will continue to follow I, the cosigning physician, performed a history & physical examination of the patient. Lungs sounds crackles in the bilateral posterior bases. Maintaining good O2 saturations in the 90s on 4 L/m per nasal cannula. I discussed the assessment and plan of care with my nurse practitioner, Renetta Chambers. I attest to the above note as dictated by her.
[2021-02-18] MEDS: SODIUM FERRIC GLUCONAT-SUCROSE 125 MG in SODIUM CHLORIDE 0.9% 100 ML IVPB SCH (13:53)
[2021-02-18] MEDS ORDERED: VANCOMYCIN 1,250 MG in SODIUM CHLORIDE 0.9% 250 ML IVPB ONE (15:00)
[2021-02-18] MEDS ORDERED: WARFARIN 3 MG TAB PO SCH (18:00)
[2021-02-18] MEDS: HYDROcodone/APAP 7.5-325MG 1 EACH TAB PO SCH (20:24)
--- NOTE | 2021-02-18 21:49 | CT ---
EXAMINATION TYPE: CT chest wo con DATE OF EXAM: 02/18/2021 COMPARISON: 01/26/2021 HISTORY: Rt pneumonia. CHF exacerbation, chronic kidney disease. CT DLP: 187.90 mGycm Automated exposure control for dose reduction was used. Images obtained from the thoracic inlet to the diaphragm without contrast. New graft there is moderat e-sized left pleural effusion. Heart is enlarged. There is smaller right pleural effusion. There is s ome patchy interstitial and airspace infiltrate in the left upper lobe and to a lesser extent adjacen t to the pleural fluid in the left lower lobe. There is some mild reticular infiltrate and atelectasi s right lower lobe adjacent to the small pleural effusion. There is 2.5 cm calcification in the right lower lobe that could be a large granuloma. Unchanged. Thoracic aorta is atheromatous. There is no mediastinal adenopathy. There are no hilar masses. There is no pericardial effusion. Thoracic spine is intact. There is degenerative spur formation. There is no compression fracture. There are multiple cysts in both kidneys. There is arterial aortic endograft in the abdomen. IMPRESSION: Left pleural effusion increased compared to old exam. Right pleural effusion not significantly differ ent. There is partial clearing of the extensive pneumonia in the right lower lobe compared to old exa m. There is some new left upper lobe pneumonia compared to old exam.
--- NOTE | 2021-02-18 22:16 | PN ---
PROGRESS NOTE DATE OF SERVICE: 02/18/2021 This 81-year-old woman who was admitted with COPD, acute exacerbation, and possible pneumonia, was also suspected to have healthcare-associated pneumonia. The patient also has chronic kidney disease, stage 4. No chest pain. No palpitations. PHYSICAL EXAMINATION: Alert and oriented x3. Pulse is 102, blood pressure 119/69, respiration 18, temperature 98 degrees, pulse ox 94% on 4 L. HEENT: Conjunctivae normal. NECK: No jugular venous distention. CARDIOVASCULAR SYSTEM: S1, S2 muffled. RESPIRATORY SYSTEM: Breath sounds diminished at the bases. A few scattered rhonchi. ABDOMEN: Soft, non-tender. LEGS: No edema. No swelling. NERVOUS SYSTEM: No focal deficit. LABS: WBC 7.07, hemoglobin 8.2, and INR 1.7. Creatinine is 3.6 and procalcitonin 0.41. ASSESSMENT: 1. Shortness of breath, multifactorial, with possible chronic obstructive pulmonary disease, acute exacerbation, as well as possible pneumonia. 2. Possible healthcare-associated pneumonia. 3. Chronic kidney disease, stage 4. 4. Elevated procalcitonin. 5. Congestive heart failure, acute exacerbation, with acute on chronic diastolic dysfunction, ejection fraction 55% to 60%. 6. Hyponatremia. 7. Hyperkalemia. 8. Troponin 0.057, indeterminate origin. 9. Elevated white count, neutrophilic pleocytosis. 10.Anemia, normocytic anemia of chronic disease. 11.History of atrial fibrillation. 12.History of deep venous thrombosis. 13.Hypertension. 14.Hyperlipidemia. 15.History of degenerative joint disease. 16.History of pneumonia. 17.History of right lung cancer and surgery. 18.History of chronic hypoxic respiratory failure, on home oxygen. 19.Tubal ligation history. RECOMMENDATIONS AND DISCUSSION: In this 81-year-old woman who presented with multiple complex medical issues, we will monitor the patient closely, continue the current medications, continue symptomatic treatment. Monitor renal function closely. Closely follow with multiple consultants. Continue the current medications. Continue symptomatic treatment. We will closely monitor with Dr. Petersen. The cultures are negative so far. The most recent chest x- ray, which was done yesterday, shows some increased bronchovascular markings in the right lower lung soto. I recommend CT chest without any contrast to elucidate further the abnormalities. Further recommendations to follow. MMODL / IJN: [id number] /
[2021-02-19] MEDS: PIPERACILLIN-TAZOBACTAM 3.375 GM in SODIUM CHLORIDE 0.9% 100 ML IVPB SCH ×2 (04:16→15:34)
[2021-02-19] MEDS: methylPREDNISolone SOD SUCCI 125 MG/2 ML VIAL IV SCH ×3 (05:42→17:43)
[2021-02-19 06:34] LABS: INR 2.6 (<1.2); Prothrombin Time 24.7 sec (9.0-12.0)
[2021-02-19 07:23] LABS: Vancomycin,Random 19.4 ug/mL
[2021-02-19 07:44] LABS: African American GFR (CKD) 12 (>60 ml/min/1.73 sqM); Anion Gap 8 mmol/L; Blood Urea Nitrogen 95 mg/dL (7-17); Calcium 9.2 mg/dL (8.4-10.2); Carbon Dioxide 33 mmol/L (22-30); Chloride 97 mmol/L (98-107); Glucose 159 mg/dL (74-99); Magnesium 2.4 mg/dL (1.6-2.3); Non-African American GFR(CKD) 10 (>60 ml/min/1.73 sqM); Potassium 4.6 mmol/L (3.5-5.1); Sodium 138 mmol/L (137-145)
[2021-02-19] MEDS: SENNOSIDES 8.6 MG TAB PO SCH (08:13)
[2021-02-19] MEDS: FERROUS SULFATE 325 MG TAB PO SCH (08:14)
[2021-02-19] MEDS: PANTOPRAZOLE 40 MG TABLET PO SCH (08:14)
[2021-02-19] MEDS: FUROSEMIDE 10 MG/ML 10 ML VIAL IV SCH ×2 (08:14→19:57)
[2021-02-19] MEDS: SODIUM BICARBONATE TAB 650 MG TAB PO SCH (08:14)
[2021-02-19] MEDS: VIT A,C & E-LUTEIN-MINERALS 1 EACH TAB PO SCH (08:14)
[2021-02-19] MEDS: BUDESONIDE 1 MG/2 ML NEBU INHALATION SCH ×2 (08:22→19:32)
[2021-02-19] MEDS: SYMBICORT 160-4.5 MCG INHALER INHALATION SCH ×2 (08:22→19:32)
[2021-02-19] MEDS: IPRATROPIUM-ALBUTEROL 3 ML NEB INHALATION SCH ×4 (08:22→19:32)
[2021-02-19] MEDS: SODIUM FERRIC GLUCONAT-SUCROSE 125 MG in SODIUM CHLORIDE 0.9% 100 ML IVPB SCH (08:56)
--- NOTE | 2021-02-19 09:29 | P.PN ---
Subjective HISTORY OF PRESENT ILLNESS: This is a 80-year-old female with a past medical history significant for paroxysmal atrial fibrillation, COPD, DVT, hypertension, hyperlipidemia, chronic kidney disease, and former nicotine dependence. Patient follows in the office with Dr. David. We have been asked to see the patient in consultation for congestive heart failure. Patient examined at the bedside in the emergency room. Patient states she has been feeling short of breath for the past few days. She also reports increased lower extremity edema. She presented to the emergency room for further evaluation. Patient was given a dose of IV Lasix. Patient states her breathing has improved and she denies shortness of breath at the time of examination. She denies chest pain or pressure. Denies fever or chills. EKG reveals sinus mechanism with no signs of acute ischemia Chest xray congestive heart failure with pleural effusions. There is probably underlying pulmonary interstitial fibrosis. Laboratory data: WBC 12.2. Hemoglobin 8.3. Platelet count 188. INR 1.5. Sodium 135. Potassium 5.6. BUN 87. Creatinine 3.34. Troponin 0.057. 0.061. 0.064. BNP 37,900. Current home cardiac medications include Coumadin 2.5 mg daily and Lasix 40 mg Sunday Echocardiogram completed in September 2020 revealed ejection fraction 55-60%, mild to moderate mitral regurgitation, moderate tricuspid regurgitation, and moderate to severe pulmonary hypertension 02/18/2021 Patient examined this morning at the bedside. Patient denies chest pain or pressure. Patient reports her shortness of breath has significantly improved. She remains on IV Lasix. Fluid balance in the last 24 hours approximately 2 L. Basic metabolic panel from this morning is still pending. 02/19 Since seen and examined. Patient states she was somewhat short of breath this morning until her she received an inhaler. She has been continued on Lasix 60 mg twice a day. INR up to 2.6, creatinine 3.9 PHYSICAL EXAM: VITAL SIGNS: Reviewed. GENERAL: Well-developed in no acute distress. HEENT: Head is normocephalic. Pupils are equal, round. Sclerae anicteric. Mucous membranes of the mouth are moist. Neck supple. No JVD or thyromegaly LUNGS: Respirations even and unlabored. Lungs diminished expiratory wheezing noted HEART: Regular rate and rhythm. S1 and S2 heard. Systolic murmur noted. ABDOMEN: Soft. Nondistended. Nontender. EXTREMITIES: Normal range of motion. No clubbing or cyanosis. Peripheral pulses intact. 1+ bilateral lower extremity edema NEUROLOGIC: Awake and alert. Oriented x 3. ASSESSMENT: Acute exacerbation of chronic diastolic heart failure, ejection fraction 55-60% Paroxysmal atrial fibrillation, on anticoagulation with Coumadin Acute on chronic kidney disease Hypertension Hyperlipidemia Pulmonary hypertension COPD Former nicotine dependence PLAN: Continue current cardiac medications Continue diuretics per nephrology Monitor kidney function Accurate I&O Daily weights Continue coumadin. Monitor INR Further recommendations pending patient course Objective - Vital Signs Vital signs: Vital Signs Temp 97.8 F 02/19/21 07:30 Pulse 107 H 02/19/21 08:39 Resp 16 02/19/21 08:00 BP 149/78 02/19/21 07:30 Pulse Ox 98 02/19/21 08:25 Intake & Output 02/18/21 02/19/21 02/19/21 18:59 06:59 18:59 Other: Voiding Method Incontinent Incontinent Incontinent - Labs CBC & Chem 7: 02/18/21 05:42 02/19/21 05:50 Labs: Abnormal Lab Results - Last 24 Hours (Table) 02/17/21 02/18/21 02/19/21 Range/Units 15:24 05:42 05:50 PT (9.0-12.0) sec INR (<1.2) Chloride 97 L (98-107) mmol/L Carbon Dioxide 33 H (22-30) mmol/L Anion Gap 13.80 H (4.00-12.00) mmol/L BUN 91.0 H 95 H (9.0-27.0) mg/dL Creatinine 3.6 H 3.85 H (0.6-1.5) mg/dL Est GFR (CKD-EPI)AfAm 12.8 L (60.0-200.0) Est GFR (CKD-EPI)NonAf 11.1 L (60.0-200.0) BUN/Creatinine Ratio 25.28 H (12.00-20.00) Ratio Glucose 132 H 159 H (70-110) mg/dL Magnesium 2.4 H (1.6-2.3) mg/dL Procalcitonin 0.41 H (0.02-0.09) ng/mL 05/15/21 Range/Units 05:50 PT 24.7 H (9.0-12.0) sec INR 2.6 H (<1.2) Chloride (98-107) mmol/L Carbon Dioxide (22-30) mmol/L Anion Gap (4.00-12.00) mmol/L BUN (9.0-27.0) mg/dL Creatinine (0.6-1.5) mg/dL Est GFR (CKD-EPI)AfAm (60.0-200.0) Est GFR (CKD-EPI)NonAf (60.0-200.0) BUN/Creatinine Ratio (12.00-20.00) Ratio Glucose (70-110) mg/dL Magnesium (1.6-2.3) mg/dL Procalcitonin (0.02-0.09) ng/mL Microbiology - Last 24 Hours (Table) 02/17/21 15:24 Blood Culture - Preliminary Blood No Growth after 24 hours
--- NOTE | 2021-02-19 10:51 | P.PN ---
Subjective Progress Note Date: 02/19/21 Principal diagnosis: Acute exacerbation of diastolic congestive heart failure This 80-year-old white female patient with past medical history of paroxysmal small atrial fibrillation on Coumadin, COPD on home oxygen at 5 L, squamous cell carcinoma of the lung diagnosed in 2019, history of smoking, history of chronic congestive heart failure, hypertension, hyperlipidemia, osteoarthritis, hypothyroidism, previous history of abdominal aortic aneurysm with endovascular stent grafting. Patient follows with Dr. Charles in the outpatient setting. She was recently hospitalized for acute exacerbation of COPD with acute hypoxic respiratory failure, patient also had some mild fluid overload at that time. Patient was doing better, however she started developing increased shortness of breath, and cough and she came into the emergency department for reevaluation and treatment. Chest x-ray was completed in the ER which showed bilateral infiltrates the possibility of fluid overload or pneumonia, however patient denies any fever, denies any chills. Her admission blood work was reviewed showing white blood cell count of 12.2, hemoglobin is 8.3, INR is 1.5, potassium is 5.6, B1 is 87, creatinine is 3.3-4, lactic acid was 1, proBNP was 37,900, patient had a mild troponin leak of 0.057, 0.061, and 0.064. She was tested for coronavirus and was found to be negative. She is currently on 4 L of oxygen her pulse ox is 97%, EKG showed normal sinus rhythm. She was started on IV Lasix 50 mg every 12 hours, and she was placed on empiric antibiotics in the form of Zosyn and vancomycin. She is on IV steroids with Solu-Medrol 60 g every 6 hours, and breathing treatments. She short of breath, she is wheezing, but no acute distress, she does have lower extremity swelling. The patient is seen today in 02/18/2021 in follow-up on the regular medical floor. She is awake and alert in no acute distress. Sitting up in bed having lunch. Breathing a bit easier today compared to yesterday. She is maintaining O2 saturation in the 90s on 4 L/m per nasal cannula. She's been afebrile. Chest x-ray reveals bibasilar pleural effusions and compressive atelectasis. Stable compared to previous. White count 7.0. Hemoglobin 8.2. INR 1.7. Sodium 140. Potassium 5.2. Creatinine 3.6. She remains on DuoNeb inhalations, Symbicort, IV Solu-Medrol. Continued on IV Lasix 60 mg every 12 hours. Antibiotics in the form of vancomycin and Zosyn. Anticoagulated with warfarin. The patient is seen today 02/19/2021 in follow-up on the regular medical floor. Currently sitting up in bed. Awake and alert in no acute distress. Maintaining O2 saturations in the 90s on 4 L/m per nasal cannula. Computed tomography scan of the chest reveals some moderate left pleural effusion, smaller right pleural effusion improvement in the right lower lobe pneumonia. Some new left upper lob e pneumonia. Blood culture reveals no growth. INR 2.6. Sodium 138. Potassium 4.6. Creatinine 3.5. Glucose 159. She remains on vancomycin and Zosyn. Antiplatelet with warfarin. Continued on DuoNeb inhalations, Symbicort, IV Solu-Medrol. Remains on IV diuretics. Patient is incontinent with no accurate I & O. Objective - Vital Signs Vital signs: Vital Signs Temp 97.8 F 02/19/21 07:30 Pulse 107 H 02/19/21 08:39 Resp 16 02/19/21 08:00 BP 149/78 02/19/21 07:30 Pulse Ox 98 02/19/21 08:25 Intake & Output 02/18/21 02/19/21 02/19/21 18:59 06:59 18:59 Other: Voiding Method Incontinent Incontinent Incontinent - Exam GENERAL EXAM: Alert, pleasant 81-year-old female patient, on 4 L nasal cannula, comfortable in no apparent distress. HEAD: Normocephalic. EYES: Normal reaction of pupils, equal size. NOSE: Clear with pink turbinates. THROAT: No erythema or exudates. NECK: No masses, no JVD. CHEST: No chest wall deformity. LUNGS: Equal air entry with few scattered rhonchi, crackles in the bilateral posterior bases CVS: S1 and S2 normal with no audible murmur, regular rhythm. ABDOMEN: No hepatosplenomegaly, normal bowel sounds, no guarding or rigidity. SPINE: No scoliosis or deformity SKIN: No rashes CENTRAL NERVOUS SYSTEM: No focal deficits, tone is normal in all 4 extremities. EXTREMITIES: There is trace peripheral edema. No clubbing, no cyanosis. Peripheral pulses are intact. - Labs CBC & Chem 7: 02/18/21 05:42 02/19/21 05:50 Labs: Abnormal Lab Results - Last 24 Hours (Table) 02/17/21 02/19/21 02/19/21 Range/Units 15:24 05:50 05:50 PT 24.7 H (9.0-12.0) sec INR 2.6 H (<1.2) Chloride 97 L (98-107) mmol/L Carbon Dioxide 33 H (22-30) mmol/L BUN 95 H (7-17) mg/dL Creatinine 3.85 H (0.52-1.04) mg/dL Glucose 159 H (74-99) mg/dL Magnesium 2.4 H (1.6-2.3) mg/dL Procalcitonin 0.41 H (0.02-0.09) ng/mL Microbiology - Last 24 Hours (Table) 02/17/21 15:24 Blood Culture - Preliminary Blood No Growth after 24 hours Assessment and Plan Assessment: 1 Acute on chronic hypoxemic respiratory failure related to acute exacerbation of CHF with diastolic dysfunction, underlying pneumonia, currently on vancomycin and Zosyn 2 Acute exacerbation of COPD and remains on Symbicort, DuoNeb's, IV Solu-Medrol 3 Recent hospitalization for acute exacerbation of CHF, discharged home on 02/08/2021 4 Stage III COPD, with baseline FEV1 of 54% predicted, on home oxygen 5 History of chronic kidney disease stage III at baseline 6 Acute kidney injury, creatinine 3.85 7 History of paroxysmal A. fib, currently in sinus rhythm, on Coumadin, INR 2.6 8 Previous history of DVT 9 Hypertension 10 Hyperlipidemia 11 Hypothyroidism 12 History of squamous cell carcinoma of the right lung, status post thoracoscopic wedge resection of the right lower lobe on 05/01/2019 Plan: The patient was seen and evaluated by Dr. Petersen CAT scan of the labs reviewed, pro calcitonin 0.41 Continue with the current treatment plan Titrate the FiO2 as tolerated Increase her activity as tolerated We will continue to follow I, the cosigning physician, performed a history & physical examination of the patient. Lungs sounds with few scattered rhonchi, crackles in the bilateral posterior bases. Maintaining good O2 saturations in the 90s on 4 L/m per nasal cannula. I discussed the assessment and plan of care with my nurse practitioner, Renetta Chambers. I attest to the above note as dictated by her.
--- NOTE | 2021-02-19 11:47 | XR ---
EXAMINATION TYPE: XR chest 1V portable DATE OF EXAM: 02/19/2021 COMPARISON: 02/18/2021 HISTORY: Shortness of breath FINDINGS: There are bilateral pleural effusions with cardiomegaly and bibasilar infiltrate. There is a diffuse interstitial pattern. IMPRESSION: 1. COPD correlate for CHF with bilateral infiltrate and pleural effusion versus diffuse pneumonia.
[2021-02-19] MEDS: LACTULOSE 20 GM/30 ML CUP PO SCH ×3 (12:14→19:58)
--- NOTE | 2021-02-19 16:27 | PN ---
PROGRESS NOTE Patient is seen for followup for acute kidney injury on top of chronic kidney disease. Serum creatinine is not far from baseline. The patient is awake, comfortable, not in any acute distress. PHYSICAL EXAMINATION: Blood pressure is 118/66, heart rate 106 per minute, she is afebrile. Examination of the heart S1, S2. Examination of the lungs, bilateral breath sounds are heard. Abdomen is soft, nontender. Examination of lower extremities show no significant edema. [employer] exam grossly intact. LAB: Show sodium 138, potassium 4.6, BUN 95, creatinine 3.85. ASSESSMENT: 1. Acute kidney injury, acute tubular necrosis/cardiorenal syndrome. Serum creatinine slightly worse again today, although not far from previous readings. 2. Chronic kidney disease, stage 4. Baseline creatinine 2.3 in January but now staying mostly 3-3.5 mg/dL. 3. Acute on chronic diastolic congestive heart failure. 4. Volume overload, improved. 5. Chronic pulmonary hypertension. 6. Chronic kidney disease mineral bone disorder. PLAN: No plans on renal replacement therapy. No changes at this point. Can switch to oral diuretics and followup renal function closely as outpatient. MMODL / IJN: [id number] /
[2021-02-19] MEDS ORDERED: WARFARIN 2 MG TAB PO ONE (18:00)
[2021-02-19] MEDS: ALPRAZolam 0.25 MG TAB PO PRN (18:25)
[2021-02-19] MEDS: HYDROcodone/APAP 7.5-325MG 1 EACH TAB PO SCH (20:00)
--- NOTE | 2021-02-19 21:22 | PN ---
PROGRESS NOTE DATE OF SERVICE: 02/19/2021 This 81-year-old woman who was admitted with shortness of breath, possibly multifactorial, is being closely monitored. Patient also suspected to have recurrent pneumonia. No chest pain. No palpitations. No fever. The most recent chest x-ray which was personally reviewed by me showed some COPD and some bilateral infiltrates. PHYSICAL EXAMINATION: Alert and oriented x3. Pulse 113, blood pressure 130/60, respiration 24, temperature 97.2, pulse ox 98% on 8 L. HEENT: Conjunctivae normal. Oral mucosa moist. NECK: No jugular venous distention. No lymph node enlargement. CARDIOVASCULAR: S1, S2, muffled. No S3, no S4, RESPIRATORY: Diminished breath sounds at the bases. A few scattered rhonchi. ABDOMEN: Soft, nontender. LEGS: No edema, no swelling. NERVOUS SYSTEM: No focal deficits. LABS: Hemoglobin 8.2. Other labs are noted. ASSESSMENT: 1. Shortness of breath, possibly multifactorial, possible COPD exacerbation as well as possible pneumonia. 2. Possible healthcare associated pneumonia. 3. Chronic kidney disease stage 4. 4. Elevated procalcitonin. 5. Congestive heart failure acute exacerbation with acute on chronic diastolic dysfunction, ejection fraction 55-60%. 6. Hyponatremia. 7. Hyperkalemia. 8. Troponin 0.05, indeterminate. 9. Elevated WBC, neutrophilic pleocytosis. 10.Anemia, normocytic anemia of chronic disease. 11.History atrial fibrillation. 12.History of DVT. 13.Hypertension. 14.Hyperlipidemia. 15.History of DJD. 16.History pneumonia. 17.History of right lung cancer and surgery. 18.History of chronic hypoxic respiratory failure on home O2. 19.Tubal ligation history. RECOMMENDATIONS AND DISCUSSION: I recommend to continue current management and symptomatic treatment. Otherwise, at this time the cultures are negative. We will continue to monitor. Stop the vancomycin. Continue with Zosyn and continue the rest of medications. Closely follow with Dr. Petersen and guarded prognosis. Further recommendations to follow. MMODL / IJN: [id number] /
[2021-02-20] MEDS: LACTULOSE 20 GM/30 ML CUP PO SCH ×6 (00:45→23:02)
[2021-02-20] MEDS: methylPREDNISolone SOD SUCCI 125 MG/2 ML VIAL IV SCH ×3 (00:53→12:03)
[2021-02-20] MEDS: PIPERACILLIN-TAZOBACTAM 3.375 GM in SODIUM CHLORIDE 0.9% 100 ML IVPB SCH ×2 (04:42→15:50)
[2021-02-20] MEDS: ALPRAZolam 0.25 MG TAB PO PRN ×2 (04:46→19:06)
[2021-02-20 05:20] LABS: INR 2.8 (<1.2); Prothrombin Time 27.2 sec (9.0-12.0)
[2021-02-20] MEDS ORDERED: VANCOMYCIN 1,250 MG in SODIUM CHLORIDE 0.9% 250 ML IVPB ONE (06:00)
[2021-02-20] MEDS: FUROSEMIDE 10 MG/ML 10 ML VIAL IV SCH (07:19)
[2021-02-20] MEDS: VIT A,C & E-LUTEIN-MINERALS 1 EACH TAB PO SCH (07:19)
[2021-02-20] MEDS: SODIUM BICARBONATE TAB 650 MG TAB PO SCH (07:20)
[2021-02-20] MEDS: PANTOPRAZOLE 40 MG TABLET PO SCH (07:20)
[2021-02-20] MEDS: FERROUS SULFATE 325 MG TAB PO SCH (07:20)
[2021-02-20] MEDS: SENNOSIDES 8.6 MG TAB PO SCH (07:21)
[2021-02-20 09:05] LABS: African American GFR (CKD) 12 (>60 ml/min/1.73 sqM); Anion Gap 9 mmol/L; Calcium 9.1 mg/dL (8.4-10.2); Carbon Dioxide 33 mmol/L (22-30); Chloride 95 mmol/L (98-107); Glucose 167 mg/dL (74-99); Non-African American GFR(CKD) 11 (>60 ml/min/1.73 sqM); Potassium 4.2 mmol/L (3.5-5.1); Sodium 137 mmol/L (137-145)
[2021-02-20] MEDS: IPRATROPIUM-ALBUTEROL 3 ML NEB INHALATION SCH ×4 (09:10→20:28)
[2021-02-20] MEDS: SYMBICORT 160-4.5 MCG INHALER INHALATION SCH ×2 (09:10→20:28)
[2021-02-20] MEDS: BUDESONIDE 1 MG/2 ML NEBU INHALATION SCH ×2 (09:10→20:27)
[2021-02-20 09:14] LABS: Blood Urea Nitrogen 104 mg/dL (7-17)
[2021-02-20] MEDS: SODIUM FERRIC GLUCONAT-SUCROSE 125 MG in SODIUM CHLORIDE 0.9% 100 ML IVPB SCH (09:40)
--- NOTE | 2021-02-20 09:41 | P.PN ---
Subjective HISTORY OF PRESENT ILLNESS: This is a 80-year-old female with a past medical history significant for paroxysmal atrial fibrillation, COPD, DVT, hypertension, hyperlipidemia, chronic kidney disease, and former nicotine dependence. Patient follows in the office with Dr. David. We have been asked to see the patient in consultation for congestive heart failure. Patient examined at the bedside in the emergency room. Patient states she has been feeling short of breath for the past few days. She also reports increased lower extremity edema. She presented to the emergency room for further evaluation. Patient was given a dose of IV Lasix. Patient states her breathing has improved and she denies shortness of breath at the time of examination. She denies chest pain or pressure. Denies fever or chills. EKG reveals sinus mechanism with no signs of acute ischemia Chest xray congestive heart failure with pleural effusions. There is probably underlying pulmonary interstitial fibrosis. Laboratory data: WBC 12.2. Hemoglobin 8.3. Platelet count 188. INR 1.5. Sodium 135. Potassium 5.6. BUN 87. Creatinine 3.34. Troponin 0.057. 0.061. 0.064. BNP 37,900. Current home cardiac medications include Coumadin 2.5 mg daily and Lasix 40 mg Sunday Echocardiogram completed in September 2020 revealed ejection fraction 55-60%, mild to moderate mitral regurgitation, moderate tricuspid regurgitation, and moderate to severe pulmonary hypertension 02/18/2021 Patient examined this morning at the bedside. Patient denies chest pain or pressure. Patient reports her shortness of breath has significantly improved. She remains on IV Lasix. Fluid balance in the last 24 hours approximately 2 L. Basic metabolic panel from this morning is still pending. 02/19 Since seen and examined. Patient states she was somewhat short of breath this morning until her she received an inhaler. She has been continued on Lasix 60 mg twice a day. INR up to 2.6, creatinine 3.9 02/20 Patient seen and examined. Patient states she is feeling well and mainly her shortness of breath improves with her inhalers. Her BUN is slightly increased to 104, creatinine 3.68. She denies any chest pain or pressure. INR 2.8. PHYSICAL EXAM: VITAL SIGNS: Reviewed. GENERAL: Well-developed in no acute distress. HEENT: Head is normocephalic. Pupils are equal, round. Sclerae anicteric. Mucous membranes of the mouth are moist. Neck supple. No JVD or thyromegaly LUNGS: Respirations even and unlabored. Lungs diminished expiratory wheezing noted HEART: Regular rate and rhythm. S1 and S2 heard. Systolic murmur noted. ABDOMEN: Soft. Nondistended. Nontender. EXTREMITIES: Normal range of motion. No clubbing or cyanosis. Peripheral pulses intact. 1+ bilateral lower extremity edema NEUROLOGIC: Awake and alert. Oriented x 3. ASSESSMENT: Acute exacerbation of chronic diastolic heart failure, ejection fraction 55-60% Paroxysmal atrial fibrillation, on anticoagulation with Coumadin Acute on chronic kidney disease Hypertension Hyperlipidemia Pulmonary hypertension COPD Former nicotine dependence PLAN: Continue current cardiac medications Change Lasix to oral Monitor kidney function Accurate I&O Daily weights Continue coumadin. Monitor INR Further recommendations pending patient course Objective - Vital Signs Vital signs: Vital Signs Temp 98.1 F 02/20/21 07:17 Pulse 104 H 02/20/21 09:28 Resp 18 02/20/21 08:00 BP 116/67 02/20/21 07:17 Pulse Ox 94 L 02/20/21 09:11 Intake & Output 02/19/21 02/20/21 02/20/21 18:59 06:59 18:59 Intake Total 618 Output Total 800 300 600 Balance -182 -300 -600 Intake: Oral 618 Output: Urine 800 300 600 Other: Voiding Method Incontinent Incontinent Incontinent # Voids 1 - Labs CBC & Chem 7: 02/18/21 05:42 02/20/21 04:17 Labs: Abnormal Lab Results - Last 24 Hours (Table) 02/20/21 02/20/21 Range/Units 04:17 04:17 PT 27.2 H (9.0-12.0) sec INR 2.8 H (<1.2) Chloride 95 L (98-107) mmol/L Carbon Dioxide 33 H (22-30) mmol/L BUN 104 H* (7-17) mg/dL Creatinine 3.68 H (0.52-1.04) mg/dL Glucose 167 H (74-99) mg/dL Microbiology - Last 24 Hours (Table) 02/17/21 15:24 Blood Culture - Preliminary Blood No Growth after 48 hours
--- NOTE | 2021-02-20 13:50 | P.PN ---
Subjective Progress Note Date: 02/20/21 Principal diagnosis: Acute exacerbation of diastolic congestive heart failure This 80-year-old white female patient with past medical history of paroxysmal small atrial fibrillation on Coumadin, COPD on home oxygen at 5 L, squamous cell carcinoma of the lung diagnosed in 2019, history of smoking, history of chronic congestive heart failure, hypertension, hyperlipidemia, osteoarthritis, hypothyroidism, previous history of abdominal aortic aneurysm with endovascular stent grafting. Patient follows with Dr. Charles in the outpatient setting. She was recently hospitalized for acute exacerbation of COPD with acute hypoxic respiratory failure, patient also had some mild fluid overload at that time. Patient was doing better, however she started developing increased shortness of breath, and cough and she came into the emergency department for reevaluation and treatment. Chest x-ray was completed in the ER which showed bilateral infiltrates the possibility of fluid overload or pneumonia, however patient denies any fever, denies any chills. Her admission blood work was reviewed showing white blood cell count of 12.2, hemoglobin is 8.3, INR is 1.5, potassium is 5.6, B1 is 87, creatinine is 3.3-4, lactic acid was 1, proBNP was 37,900, patient had a mild troponin leak of 0.057, 0.061, and 0.064. She was tested for coronavirus and was found to be negative. She is currently on 4 L of oxygen her pulse ox is 97%, EKG showed normal sinus rhythm. She was started on IV Lasix 50 mg every 12 hours, and she was placed on empiric antibiotics in the form of Zosyn and vancomycin. She is on IV steroids with Solu-Medrol 60 g every 6 hours, and breathing treatments. She short of breath, she is wheezing, but no acute distress, she does have lower extremity swelling. The patient is seen today in 02/18/2021 in follow-up on the regular medical floor. She is awake and alert in no acute distress. Sitting up in bed having lunch. Breathing a bit easier today compared to yesterday. She is maintaining O2 saturation in the 90s on 4 L/m per nasal cannula. She's been afebrile. Chest x-ray reveals bibasilar pleural effusions and compressive atelectasis. Stable compared to previous. White count 7.0. Hemoglobin 8.2. INR 1.7. Sodium 140. Potassium 5.2. Creatinine 3.6. She remains on DuoNeb inhalations, Symbicort, IV Solu-Medrol. Continued on IV Lasix 60 mg every 12 hours. Antibiotics in the form of vancomycin and Zosyn. Anticoagulated with warfarin. The patient is seen today 02/19/2021 in follow-up on the regular medical floor. Currently sitting up in bed. Awake and alert in no acute distress. Maintaining O2 saturations in the 90s on 4 L/m per nasal cannula. Computed tomography scan of the chest reveals some moderate left pleural effusion, smaller right pleural effusion improvement in the right lower lobe pneumonia. Some new left upper lob e pneumonia. Blood culture reveals no growth. INR 2.6. Sodium 138. Potassium 4.6. Creatinine 3.5. Glucose 159. She remains on vancomycin and Zosyn. Antiplatelet with warfarin. Continued on DuoNeb inhalations, Symbicort, IV Solu-Medrol. Remains on IV diuretics. Patient is incontinent with no accurate I & O. The patient is seen today 02/20/2021 follow-up on the regular medical floor. Sh e is currently sitting up in a chair at the bedside. Awake and alert in no acute distress. Denies any worsening shortness of breath, cough or congestion. She is maintaining O2 saturations in the 90s on 4 L/m per nasal cannula. INR 2.8. Sodium 137. Potassium 4.2. BUN 104. Creatinine 3.68. She remains on bronchodilators, diuretics, antibiotics in the form of Zosyn. Anticoagulated with warfarin. Objective - Vital Signs Vital signs: Vital Signs Temp 98.1 F 02/20/21 07:17 Pulse 112 H 02/20/21 12:53 Resp 18 02/20/21 08:00 BP 116/67 02/20/21 07:17 Pulse Ox 94 L 02/20/21 09:11 Intake & Output 02/19/21 02/20/21 02/20/21 18:59 06:59 18:59 Intake Total 618 Output Total 800 300 600 Balance -182 -300 -600 Intake: Oral 618 Output: Urine 800 300 600 Other: Voiding Method Incontinent Incontinent Incontinent # Voids 1 - Exam GENERAL EXAM: Alert, pleasant 81-year-old female patient, on 4 L nasal cannula, comfortable in no apparent distress. HEAD: Normocephalic. EYES: Normal reaction of pupils, equal size. NOSE: Clear with pink turbinates. THROAT: No erythema or exudates. NECK: No masses, no JVD. CHEST: No chest wall deformity. LUNGS: Equal air entry with few scattered rhonchi, crackles in the bilateral posterior bases CVS: S1 and S2 normal with no audible murmur, regular rhythm. ABDOMEN: No hepatosplenomegaly, normal bowel sounds, no guarding or rigidity. SPINE: No scoliosis or deformity SKIN: No rashes CENTRAL NERVOUS SYSTEM: No focal deficits, tone is normal in all 4 extremities. EXTREMITIES: There is trace peripheral edema. No clubbing, no cyanosis. Peripheral pulses are intact. - Labs CBC & Chem 7: 02/18/21 05:42 02/20/21 04:17 Labs: Abnormal Lab Results - Last 24 Hours (Table) 02/20/21 02/20/21 Range/Units 04:17 04:17 PT 27.2 H (9.0-12.0) sec INR 2.8 H (<1.2) Chloride 95 L (98-107) mmol/L Carbon Dioxide 33 H (22-30) mmol/L BUN 104 H* (7-17) mg/dL Creatinine 3.68 H (0.52-1.04) mg/dL Glucose 167 H (74-99) mg/dL Microbiology - Last 24 Hours (Table) 02/17/21 15:24 Blood Culture - Preliminary Blood No Growth after 48 hours Assessment and Plan Assessment: 1 Acute on chronic hypoxemic respiratory failure related to acute exacerbation of CHF with diastolic dysfunction, underlying pneumonia, currently on vancomycin and Zosyn 2 Acute exacerbation of COPD and remains on Symbicort, DuoNeb's, IV Solu-Medrol 3 Recent hospitalization for acute exacerbation of CHF, discharged home on 02/08/2021 4 Stage III COPD, with baseline FEV1 of 54% predicted, on home oxygen 5 History of chronic kidney disease stage III at baseline 6 Acute kidney injury, creatinine 3.85 7 History of paroxysmal A. fib, currently in sinus rhythm, on Coumadin, INR 2.6 8 Previous history of DVT 9 Hypertension 10 Hyperlipidemia 11 Hypothyroidism 12 History of squamous cell carcinoma of the right lung, status post thoracoscopic wedge resection of the right lower lobe on 05/01/2019 Plan: The patient was seen and evaluated by Dr. Nicola Currently stable from the pulmonary standpoint Continue with the current treatment plan Titrate the FiO2 as tolerated Increase her activity as tolerated Probable discharge in the a.m. We will continue to follow I, the cosigning physician, performed a history & physical examination of the patient. Lungs sounds with few scattered rhonchi, crackles in the bilateral posterior bases. Maintaining good O2 saturations in the 90s on 4 L/m per nasal cannula. I discussed the assessment and plan of care with my nurse practitioner, Renetta Chambers. I attest to the above note as dictated by her.
--- NOTE | 2021-02-20 14:55 | PN ---
PROGRESS NOTE Patient is seen for followup for chronic kidney disease and acute kidney injury. The patient's diuretics have been decreased. Serum creatinine had gone up to 3.8 yesterday. Today it is down to 3.68. Overall, she denies any significant complaints. She states she is feeling fairly well. PHYSICAL EXAMINATION: Blood pressure was 116/67, heart rate 98 per minute, she is afebrile. Examination of the heart S1, S2. Examination of the lungs, bilateral breath sounds are heard. Decreased breath sounds at bases. Abdomen is soft, nontender. Examination of lower extremities shows no significant edema. Chronic skin changes noted. [employer] exam grossly intact. LAB: Show sodium 137, potassium 4.2, BUN 104, serum creatinine 3.68, hemoglobin was 8.2 on 02/18/2021. ASSESSMENT: 1. Acute kidney injury, acute tubular necrosis/cardiorenal syndrome maintained on diuretics which have recently been decreased. 2. Chronic kidney disease, stage 4. Baseline creatinine 2.3 in January, now staying mostly around 3-3.5 mg/dL. 3. Acute on chronic diastolic congestive heart failure. 4. Volume overload, improved. 5. Chronic pulmonary hypertension. 6. Chronic kidney disease mineral bone disorder. PLAN: Agree with switching to oral diuretics and close monitoring as outpatient. No plans for starting renal replacement therapy at this point. MMODL / IJN: [id number] /
[2021-02-20] MEDS: methylPREDNISolone SOD SUCCI 40 MG/ML 1 ML VIAL IV SCH ×2 (15:50→23:52)
--- NOTE | 2021-02-20 16:34 | PN ---
PROGRESS NOTE DATE OF SERVICE: 02/20/2021 This 81-year-old woman who was admitted with shortness of breath, possibly multifactorial, is being closely monitored at this time. The patient is feeling slightly better. No chest pain. No palpitations. No fever. The most recent chest x- ray was noted. PHYSICAL EXAMINATION: Alert and oriented times three. Pulse is 112, blood pressure is 116/62, respiration 18, temperature 98.2, pulse ox 98% on 5 L. HEENT: Conjunctivae normal. NECK: No JVD. CARDIOVASCULAR: S1, S2 muffled. RESPIRATION: Breath sounds diminished in the bases. A few scattered rhonchi and crackles. ABDOMEN: Soft. Nontender. NERVOUS SYSTEM: No focal deficits. LABS: Hemoglobin 8.2 and creatinine 3.68. ASSESSMENT: 1. Shortness of breath possibly multifactorial, COPD acute exacerbation as well as possible pneumonia. 2. Possible healthcare associated pneumonia. 3. Chronic kidney disease stage 4. 4. Elevated procalcitonin. 5. Congestive heart failure, acute exacerbation with acute on chronic diastolic dysfunction, ejection fraction 55-60 percent. 6. Hyponatremia. 7. Hyperkalemia. 8. Troponin 0.05 indeterminate. 9. Elevated WBC, neutrophilic 10.Anemia, normocytic anemia of chronic disease. 11.History of atrial fibrillation. 12.History of deep vein thrombosis. 13.Hypertension. 14.Hyperlipidemia. 15.History of degenerative joint disease. 16.History of pneumonia. 17.History of right lung cancer surgery. 18.History of chronic obstructive pulmonary disease, on home O2. 19.Tubal ligation history. RECOMMENDATIONS AND DISCUSSION: This 81-year-old woman who presented with multiple complex medical issues, we will monitor the patient closely. Continue the current medications, management and symptomatic treatment. Otherwise, we will monitor the lytes closely, creatinine as well as hemoglobin. Patient is on p.o. diuretics. We will continue to monitor. Further recommendations to follow. Broad-spectrum IV antibiotics as well. We will cut down the dose of steroids. MMODL / IJN: [id number] / MTDD
[2021-02-20] MEDS ORDERED: WARFARIN 2 MG TAB PO ONE (18:00)
[2021-02-20] MEDS: HYDROcodone/APAP 7.5-325MG 1 EACH TAB PO SCH (20:07)
[2021-02-21] MEDS: LACTULOSE 20 GM/30 ML CUP PO SCH ×6 (00:12→19:29)
[2021-02-21] MEDS: PIPERACILLIN-TAZOBACTAM 3.375 GM in SODIUM CHLORIDE 0.9% 100 ML IVPB SCH ×2 (05:09→16:43)
[2021-02-21 05:28] LABS: INR 3.4 (<1.2); Prothrombin Time 32.3 sec (9.0-12.0)
[2021-02-21] MEDS: IPRATROPIUM-ALBUTEROL 3 ML NEB INHALATION PRN (05:35)
--- NOTE | 2021-02-21 06:53 | XR ---
EXAMINATION TYPE: XR chest 1V portable DATE OF EXAM: 02/21/2021 CLINICAL HISTORY: Difficulty breathing CHF and pneumonia progress study. TECHNIQUE: Single AP portable frontal view of the chest is obtained. COMPARISON: Chest x-ray from [address] chest 3 days earlier. FINDINGS: Osseous structures remain demineralized. Persistent cardiomegaly with atherosclerotic thor acic aorta. Background chronic emphysematous and parenchymal changes with bibasilar opacities redemon strated and slightly improved. IMPRESSION: Cardiomegaly and chronic parenchymal changes with small bilateral pleural effusions and b ibasilar atelectasis and/or infiltrate. Latter slightly improved from most recent x-ray.
[2021-02-21] MEDS: VIT A,C & E-LUTEIN-MINERALS 1 EACH TAB PO SCH (07:44)
[2021-02-21] MEDS: FUROSEMIDE 20 MG TAB PO SCH (07:44)
[2021-02-21] MEDS: SODIUM BICARBONATE TAB 650 MG TAB PO SCH (07:44)
[2021-02-21] MEDS: FERROUS SULFATE 325 MG TAB PO SCH (07:45)
[2021-02-21] MEDS: PANTOPRAZOLE 40 MG TABLET PO SCH (07:45)
[2021-02-21] MEDS: SENNOSIDES 8.6 MG TAB PO SCH (07:45)
[2021-02-21] MEDS: methylPREDNISolone SOD SUCCI 40 MG/ML 1 ML VIAL IV SCH ×2 (07:46→16:43)
[2021-02-21] MEDS: SODIUM FERRIC GLUCONAT-SUCROSE 125 MG in SODIUM CHLORIDE 0.9% 100 ML IVPB SCH (07:49)
[2021-02-21] MEDS: BUDESONIDE 1 MG/2 ML NEBU INHALATION SCH ×2 (08:37→19:48)
[2021-02-21] MEDS: SYMBICORT 160-4.5 MCG INHALER INHALATION SCH ×2 (08:37→19:46)
[2021-02-21] MEDS: IPRATROPIUM-ALBUTEROL 3 ML NEB INHALATION SCH ×4 (08:37→19:48)
[2021-02-21] MEDS: ALPRAZolam 0.25 MG TAB PO PRN ×2 (12:17→19:29)
--- NOTE | 2021-02-21 13:35 | P.PN ---
Subjective This is a 80-year-old female with a past medical history significant for paroxysmal atrial fibrillation, COPD, DVT, hypertension, hyperlipidemia, chronic kidney disease, and former nicotine dependence. Patient follows in the office with Dr. David. We have been asked to see the patient in consultation for congestive heart failure. Patient examined at the bedside in the emergency room. Patient states she has been feeling short of breath for the past few days. She also reports increased lower extremity edema. She presented to the emergency room for further evaluation. Patient was given a dose of IV Lasix. Patient states her breathing has improved and she denies shortness of breath at the time of examination. She denies chest pain or pressure. Denies fever or chills.EKG reveals sinus mechanism with no signs of acute ischemia. Chest xray congestive heart failure with pleural effusions. There is probably underlying pulmonary interstitial fibrosis. Current home cardiac medications include Coumadin 2.5 mg daily and Lasix 40 mg Sunday. Echocardiogram completed in September 2020 revealed ejection fraction 55-60%, mild to moderate mitral regurgitation, moderate tricuspid regurgitation, and moderate to severe pulmonary hypertension 02/18/2021 Patient examined this morning at the bedside. Patient denies chest pain or pressure. Patient reports her shortness of breath has significantly improved. She remains on IV Lasix. Fluid balance in the last 24 hours approximately 2 L. Basic metabolic panel from this morning is still pending. 02/19 Since seen and examined. Patient states she was somewhat short of breath this morning until her she received an inhaler. She has been continued on Lasix 60 mg twice a day. INR up to 2.6, creatinine 3.9 02/20 Patient seen and examined. Patient states she is feeling well and mainly her shortness of breath improves with her inhalers. Her BUN is slightly increased to 104, creatinine 3.68. She denies any chest pain or pressure. INR 2.8. 02/21/2021: Patient seen and examined at bedside, no acute distress. BP 129/70, heart rate 98, maintaining oxygen saturation on 4 L nasal cannula. Patient with 1.1 L urine output over the past 24 hours. Patient currently being maintained on furosemide 60 mg daily, Coumadin. Chest is at this morning appears improved, with small bilateral pleural effusions and bibasilar atelectasis and/or infiltrate. Patient's INR 3.4 today. BMP not back today. weight decreased to 67.5kg from 69kg on 02/18. PHYSICAL EXAM: VITAL SIGNS: Reviewed. GENERAL: Well-developed in no acute distress. HEENT: Neck supple. No JVD or thyromegaly LUNGS: Respirations even and unlabored. Lungs diminished expiratory wheezing noted HEART: Regular rate and rhythm. S1 and S2 heard. Systolic murmur noted. ABDOMEN: Soft. Nondistended. Nontender. EXTREMITIES: Normal range of motion. No clubbing or cyanosis. Peripheral pulses intact. 1+ bilateral lower extremity edema NEUROLOGIC: Awake and alert. Oriented x 3. ASSESSMENT: Acute exacerbation of chronic diastolic heart failure, ejection fraction 55-60% Paroxysmal atrial fibrillation, on anticoagulation with Coumadin Acute on chronic kidney disease Hypertension Hyperlipidemia Pulmonary hypertension COPD Former nicotine dependence PLAN: Patient is currently stable. Continue current cardiac medications Will continue PO Lasix. Monitor kidney function, Accurate I&O Nephrology is following Recommend holding Coumadin today for INR 3.4 We will follow the patient as needed. Please reach out with any further questions or concerns. Objective - Vital Signs Vital signs: Vital Signs Temp 97.9 F 02/21/21 07:35 Pulse 98 02/21/21 12:00 Resp 16 02/21/21 12:00 BP 129/70 02/21/21 07:35 Pulse Ox 97 02/21/21 08:37 Intake & Output 02/20/21 02/21/21 02/21/21 18:59 06:59 18:59 Output Total 600 Balance -600 Weight 67.5 kg Output: Urine 600 Other: Voiding Method Incontinent Incontinent Incontinent - Labs CBC & Chem 7: 02/18/21 05:42 02/20/21 04:17 Labs: Abnormal Lab Results - Last 24 Hours (Table) 02/21/21 Range/Units 05:00 PT 32.3 H (9.0-12.0) sec INR 3.4 H (<1.2) Microbiology - Last 24 Hours (Table) 02/20/21 15:13 Gram Stain - Preliminary Sputum Sputum Culture - Preliminary 02/17/21 15:24 Blood Culture - Preliminary Blood No Growth after 72 hours
--- NOTE | 2021-02-21 15:04 | P.PN ---
Subjective Progress Note Date: 02/21/21 Principal diagnosis: Acute exacerbation of diastolic CHF This 80-year-old white female patient with past medical history of paroxysmal small atrial fibrillation on Coumadin, COPD on home oxygen at 5 L, squamous cell carcinoma of the lung diagnosed in 2019, history of smoking, history of chronic congestive heart failure, hypertension, hyperlipidemia, osteoarthritis, hypothyroidism, previous history of abdominal aortic aneurysm with endovascular stent grafting. Patient follows with Dr. Charles in the outpatient setting. She was recently hospitalized for acute exacerbation of COPD with acute hypoxic respiratory failure, patient also had some mild fluid overload at that time. Patient was doing better, however she started developing increased shortness of breath, and cough and she came into the emergency department for reevaluation and treatment. Chest x-ray was completed in the ER which showed bilateral infiltrates the possibility of fluid overload or pneumonia, however patient denies any fever, denies any chills. Her admission blood work was reviewed showing white blood cell count of 12.2, hemoglobin is 8.3, INR is 1.5, potassium is 5.6, B1 is 87, creatinine is 3.3-4, lactic acid was 1, proBNP was 37,900, patient had a mild troponin leak of 0.057, 0.061, and 0.064. She was tested for coronavirus and was found to be negative. She is currently on 4 L of oxygen her pulse ox is 97%, EKG showed normal sinus rhythm. She was started on IV Lasix 50 mg every 12 hours, and she was placed on empiric antibiotics in the form of Zosyn and vancomycin. She is on IV steroids with Solu-Medrol 60 g every 6 hours, and breathing treatments. She short of breath, she is wheezing, but no acute distress, she does have lower extremity swelling. The patient is seen today in 02/18/2021 in follow-up on the regular medical floor. She is awake and alert in no acute distress. Sitting up in bed having lunch. Breathing a bit easier today compared to yesterday. She is maintaining O2 saturation in the 90s on 4 L/m per nasal cannula. She's been afebrile. Chest x-ray reveals bibasilar pleural effusions and compressive atelectasis. Stable compared to previous. White count 7.0. Hemoglobin 8.2. INR 1.7. Sodium 140. Potassium 5.2. Creatinine 3.6. She remains on DuoNeb inhalations, Symbicort, IV Solu-Medrol. Continued on IV Lasix 60 mg every 12 hours. Anti biotics in the form of vancomycin and Zosyn. Anticoagulated with warfarin. The patient is seen today 02/19/2021 in follow-up on the regular medical floor. Currently sitting up in bed. Awake and alert in no acute distress. Maintaining O2 saturations in the 90s on 4 L/m per nasal cannula. Computed tomography scan of the chest reveals some moderate left pleural effusion, smaller right pleural effusion improvement in the right lower lobe pneumonia. Some new left upper lobe pneumonia. Blood culture reveals no growth. INR 2.6. Sodium 138. Potassium 4.6. Creatinine 3.5. Glucose 159. She remains on vancomycin and Zosyn. Antiplatelet with warfarin. Continued on DuoNeb inhalations, Symbicort, IV Solu-Medrol. Remains on IV diuretics. Patient is incontinent with no accurate I & O. The patient is seen today 02/20/2021 follow-up on the regular medical floor. She is currently sitting up in a chair at the bedside. Awake and alert in no acute distress. Denies any worsening shortness of breath, cough or congestion. She is maintaining O2 saturations in the 90s on 4 L/m per nasal cannula. INR 2.8. Sodium 137. Potassium 4.2. BUN 104. Creatinine 3.68. She remains on bronchodilators, diuretics, antibiotics in the form of Zosyn. Anticoagulated with warfarin. On 02/21/2021 patient seen in follow-up on medical surgical floor, she is sitting up in the recliner, appears to be in no acute distress, she is currently on 4 L of oxygen pulse ox 98%, she's been afebrile, she has had no complaints of worsening cough or dyspnea, no chest discomfort. She remains on oral Lasix 60 mg twice daily, she remains on IV Solu-Medrol currently 40 mg every 8 hours in addition to breathing treatments and Zosyn. Her sputum and blood cultures have remained negative. Today's INR is 3.4, no other new labs. Today's chest x-ray shows cardiomegaly and chronic parenchymal changes with small bilateral pleural effusions and bibasilar atelectasis, improved from most recent chest x-ray. Objective - Vital Signs Vital signs: Vital Signs Temp 98.5 F 02/21/21 14:15 Pulse 100 02/21/21 14:15 Resp 16 02/21/21 14:15 BP 119/73 02/21/21 14:15 Pulse Ox 98 02/21/21 14:15 Intake & Output 02/20/21 02/21/21 02/21/21 18:59 06:59 18:59 Output Total 600 Balance -600 Weight 67.5 kg Output: Urine 600 Other: Voiding Method Incontinent Incontinent Incontinent - Exam GENERAL EXAM: Alert, very pleasant 81-year-old white female, on 4 L of oxygen and the pulse ox of 98% comfortable in no apparent distress. HEAD: Normocephalic/atraumatic. EYES: Normal reaction of pupils, equal size. Conjunctiva pink, sclera white. NOSE: Clear with pink turbinates. THROAT: No erythema or exudates. NECK: No masses, no JVD, no thyroid enlargement, no adenopathy. CHEST: No chest wall deformity. Symmetrical expansion. LUNGS: Equal air entry with no crackles, no wheezes CVS: Regular rate and rhythm, normal S1 and S2, no gallops, no murmurs, no rubs ABDOMEN: Soft, nontender. No hepatosplenomegaly, normal bowel sounds, no guarding or rigidity. EXTREMITIES: No clubbing, no edema, no cyanosis, 2+ pulses and upper and lower extremities. MUSCULOSKELETAL: Muscle strength and tone normal. SPINE: No scoliosis or deformity SKIN: No rashes CENTRAL NERVOUS SYSTEM: Alert and oriented -3. No focal deficits, tone is normal in all 4 extremities. PSYCHIATRIC: Alert and oriented -3. Appropriate affect. Intact judgment and insight. - Labs CBC & Chem 7: 02/18/21 05:42 02/20/21 04:17 Labs: Abnormal Lab Results - Last 24 Hours (Table) 02/21/21 Range/Units 05:00 PT 32.3 H (9.0-12.0) sec INR 3.4 H (<1.2) Microbiology - Last 24 Hours (Table) 02/20/21 15:13 Gram Stain - Preliminary Sputum Sputum Culture - Preliminary 02/17/21 15:24 Blood Culture - Preliminary Blood No Growth after 72 hours Assessment and Plan Plan: Assessment: #1. Dyspnea related to acute exacerbation of CHF with diastolic dysfunction, doubt underlying pneumonia, although not completely excluding the possibility #2. Acute exacerbation of COPD #3. Recent hospitalization for acute exacerbation of CHF, discharged home on 02/08/2021 #4. Stage III COPD, with baseline FEV1 of 54% predicted, on home oxygen #5. History of chronic kidney disease stage III at baseline #6. Acute kidney injury #7. History of paroxysmal A. fib, currently in sinus rhythm, on Coumadin #8. Previous history of DVT #9. Hypertension #10. Hyperlipidemia #11. Hypothyroidism #12. History of squamous cell carcinoma of the right lung, status post thoracoscopic wedge resection of the right lower lobe on 05/01/2019 Plan: Continue current medical treatment Continue antibiotics, diuretics and breathing treatments Continue IV steroids Patient is breathing easier, chest x-ray shows some improvement in aeration Vital signs have been stable If continues to improve she may be considered for discharge home tomorrow I performed a history & physical examination of the patient and discussed their management with my nurse practitioner, Rachele Bradshaw. I reviewed the nurse practitioner's note and agree with the documented findings and plan of care. Lung sounds are positive for diffuse crackles. The findings and the impression was discussed with the patient. I attest to the documentation by the nurse practitioner. Time with Patient: Less than 30
--- NOTE | 2021-02-21 15:12 | PN ---
PROGRESS NOTE Patient is seen for followup for chronic kidney disease. Patient is currently awake, comfortable. She is not in any distress. Her renal function is fairly stable. Creatinine improved from 3.8 to 3.6 yesterday. We do not have any labs available from today. Lasix is at 60 mg p.o. daily. PHYSICAL EXAMINATION: Blood pressure was 129/70, heart rate 98 per minute. Patient is afebrile. EXAMINATION OF THE HEART: S1 and S2. EXAMINATION OF LUNGS: Bilateral breath sounds are heard. ABDOMEN: Soft, non-tender. Examination of lower extremities shows no significant edema. LABS: Labs show sodium of 137 from 02/20/2021. BUN 104, serum creatinine 3.68, hemoglobin 8.2 from 02/18. ASSESSMENT: 1. Chronic kidney disease, NKF stage 4 to 5, with baseline creatinine around 2.3, now staying at about 3 to 3.5 secondary to nephrosclerosis. 2. Acute kidney injury, acute tubular necrosis/cardiorenal, improved with decreasing dose of diuretics. 3. Acute on chronic diastolic congestive heart failure. 4. Volume overload, currently improved. 5. Chronic pulmonary hypertension. 6. Chronic kidney disease mineral bone disorder. PLAN: Continue with current dose of diuretics, close monitoring of labs and volume status as outpatient. MMODL / IJN: [id number] /
[2021-02-21] MEDS ORDERED: WARFARIN 0.5 MG TAB PO ONE (18:00)
[2021-02-21] MEDS: HYDROcodone/APAP 7.5-325MG 1 EACH TAB PO SCH (20:35)
[2021-02-22] MEDS: methylPREDNISolone SOD SUCCI 40 MG/ML 1 ML VIAL IV SCH ×2 (00:21→07:29)
[2021-02-22] MEDS: LACTULOSE 20 GM/30 ML CUP PO SCH ×5 (00:21→15:50)
[2021-02-22] MEDS: PIPERACILLIN-TAZOBACTAM 3.375 GM in SODIUM CHLORIDE 0.9% 100 ML IVPB SCH (04:03)
[2021-02-22] MEDS: IPRATROPIUM-ALBUTEROL 3 ML NEB INHALATION SCH ×3 (06:05→16:05)
[2021-02-22] MEDS: BUDESONIDE 1 MG/2 ML NEBU INHALATION SCH (06:05)
[2021-02-22 06:27] LABS: INR 3.2 (<1.2); Prothrombin Time 30.7 sec (9.0-12.0)
[2021-02-22] MEDS: PANTOPRAZOLE 40 MG TABLET PO SCH (07:29)
[2021-02-22] MEDS: VIT A,C & E-LUTEIN-MINERALS 1 EACH TAB PO SCH (07:29)
[2021-02-22] MEDS: FERROUS SULFATE 325 MG TAB PO SCH (07:29)
[2021-02-22] MEDS: FUROSEMIDE 20 MG TAB PO SCH (07:29)
[2021-02-22] MEDS: SODIUM BICARBONATE TAB 650 MG TAB PO SCH (07:30)
[2021-02-22] MEDS: SENNOSIDES 8.6 MG TAB PO SCH (07:30)
[2021-02-22 09:45] LABS: Basophils # (A) 0 X 10*3/uL (0.00-0.10); Basophils % (A) 0 %; Eosinophils # (A) 0.01 X 10*3/uL (0.04-0.35); Eosinophils % (A) 0.1 %; HCT 27.1 % (37.2-46.3); HGB 8.2 g/dL (12.0-15.0); Lymphocytes # (A) 0.15 X 10*3/uL (0.90-5.00); Lymphocytes % (A) 1.3 %; MCH 30.5 pg (27.0-32.0); MCHC 30.3 g/dL (32.0-37.0); MCV 100.7 fL (80.0-97.0); Mean Platelet Volume 11.1 fL (9.5-12.2); Monocytes # (A) 0.43 X 10*3/uL (0.20-1.00); Monocytes % (A) 3.7 %; Neutrophils # (A) 11.08 X 10*3/uL (1.80-7.70); Neutrophils % (A) 94.3 %; Platelet Count 295 X 10*3/uL (140-440); RBC 2.69 X 10*6/uL (4.10-5.20); RDW 17.6 % (11.5-14.5); WBC 11.74 X 10*3/uL (4.50-10.00)
[2021-02-22 11:25] VITALS: RESP 18
[2021-02-22] MEDS: ALPRAZolam 0.25 MG TAB PO PRN (11:35)
[2021-02-22 12:19] LABS: African American GFR (CKD) 15 (>60 ml/min/1.73 sqM); Anion Gap 7 mmol/L; Calcium 8.9 mg/dL (8.4-10.2); Carbon Dioxide 38 mmol/L (22-30); Chloride 92 mmol/L (98-107); Glucose 118 mg/dL (74-99); Non-African American GFR(CKD) 13 (>60 ml/min/1.73 sqM); Potassium 3.9 mmol/L (3.5-5.1); Sodium 137 mmol/L (137-145)
[2021-02-22 12:26] LABS: Blood Urea Nitrogen 115 mg/dL (7-17)
--- NOTE | 2021-02-22 12:45 | P.PN ---
Subjective Progress Note Date: 02/22/21 Principal diagnosis: Acute exacerbation of diastolic CHF This 80-year-old white female patient with past medical history of paroxysmal small atrial fibrillation on Coumadin, COPD on home oxygen at 5 L, squamous cell carcinoma of the lung diagnosed in 2019, history of smoking, history of chronic congestive heart failure, hypertension, hyperlipidemia, osteoarthritis, hypothyroidism, previous history of abdominal aortic aneurysm with endovascular stent grafting. Patient follows with Dr. Charles in the outpatient setting. She was recently hospitalized for acute exacerbation of COPD with acute hypoxic respiratory failure, patient also had some mild fluid overload at that time. Patient was doing better, however she started developing increased shortness of breath, and cough and she came into the emergency department for reevaluation and treatment. Chest x-ray was completed in the ER which showed bilateral infiltrates the possibility of fluid overload or pneumonia, however patient denies any fever, denies any chills. Her admission blood work was reviewed showing white blood cell count of 12.2, hemoglobin is 8.3, INR is 1.5, potassium is 5.6, B1 is 87, creatinine is 3.3-4, lactic acid was 1, proBNP was 37,900, patient had a mild troponin leak of 0.057, 0.061, and 0.064. She was tested for coronavirus and was found to be negative. She is currently on 4 L of oxygen her pulse ox is 97%, EKG showed normal sinus rhythm. She was started on IV Lasix 50 mg every 12 hours, and she was placed on empiric antibiotics in the form of Zosyn and vancomycin. She is on IV steroids with Solu-Medrol 60 g every 6 hours, and breathing treatments. She short of breath, she is wheezing, but no acute distress, she does have lower extremity swelling. The patient is seen today in 02/18/2021 in follow-up on the regular medical floor. She is awake and alert in no acute distress. Sitting up in bed having lunch. Breathing a bit easier today compared to yesterday. She is maintaining O2 saturation in the 90s on 4 L/m per nasal cannula. She's been afebrile. Chest x-ray reveals bibasilar pleural effusions and compressive atelectasis. Stable compared to previous. White count 7.0. Hemoglobin 8.2. INR 1.7. Sodium 140. Potassium 5.2. Creatinine 3.6. She remains on DuoNeb inhalations, Symbicort, IV Solu-Medrol. Continued on IV Lasix 60 mg every 12 hours. Anti biotics in the form of vancomycin and Zosyn. Anticoagulated with warfarin. The patient is seen today 02/19/2021 in follow-up on the regular medical floor. Currently sitting up in bed. Awake and alert in no acute distress. Maintaining O2 saturations in the 90s on 4 L/m per nasal cannula. Computed tomography scan of the chest reveals some moderate left pleural effusion, smaller right pleural effusion improvement in the right lower lobe pneumonia. Some new left upper lobe pneumonia. Blood culture reveals no growth. INR 2.6. Sodium 138. Potassium 4.6. Creatinine 3.5. Glucose 159. She remains on vancomycin and Zosyn. Antiplatelet with warfarin. Continued on DuoNeb inhalations, Symbicort, IV Solu-Medrol. Remains on IV diuretics. Patient is incontinent with no accurate I & O. The patient is seen today 02/20/2021 follow-up on the regular medical floor. She is currently sitting up in a chair at the bedside. Awake and alert in no acute distress. Denies any worsening shortness of breath, cough or congestion. She is maintaining O2 saturations in the 90s on 4 L/m per nasal cannula. INR 2.8. Sodium 137. Potassium 4.2. BUN 104. Creatinine 3.68. She remains on bronchodilators, diuretics, antibiotics in the form of Zosyn. Anticoagulated with warfarin. On 02/21/2021 patient seen in follow-up on medical surgical floor, she is sitting up in the recliner, appears to be in no acute distress, she is currently on 4 L of oxygen pulse ox 98%, she's been afebrile, she has had no complaints of worsening cough or dyspnea, no chest discomfort. She remains on oral Lasix 60 mg twice daily, she remains on IV Solu-Medrol currently 40 mg every 8 hours in addition to breathing treatments and Zosyn. Her sputum and blood cultures have remained negative. Today's INR is 3.4, no other new labs. Today's chest x-ray shows cardiomegaly and chronic parenchymal changes with small bilateral pleural effusions and bibasilar atelectasis, improved from most recent chest x-ray. On 02/22/2021 patient seen in follow-up on medical surgical floor, she is currently on 4 L, breathing comfortably, she is up relating with a walker and limited assistance from physical therapy, tolerating activity very well, she remains on IV Solu-Medrol 40 mg every 8 hours, she is on Zosyn, and breathing treatments, her Lasix is 60 mg once daily, she is incontinent of urine, but her weight is down by 2.7 kg in the last 24 hours, today's labs have been reviewed, showing white blood cell count of 11.7, hemoglobin of 8.2, INR is 3.2, sodium is 137, potassium is 3.9, BUN of 1:15, and creatinine 3.24. Vital signs have been stable overnight, has had no complaints of worsening dyspnea, her pulse ox on 4 L is 97%, and this can probably be further weaned down. Last chest x-ray from yesterday shows cardiomegaly and chronic changes with small bilateral pleural effusions and basilar atelectasis with improvement from prior exam. Objective - Vital Signs Vital signs: Vital Signs Temp 98.0 F 02/22/21 07:00 Pulse 100 02/22/21 11:34 Resp 18 02/22/21 11:34 BP 140/73 02/22/21 07:00 Pulse Ox 97 02/22/21 07:00 Intake & Output 02/21/21 02/22/21 02/22/21 18:59 06:59 18:59 Intake Total 240 240 Output Total 600 Balance 240 -360 Weight 64.7 kg Intake: Oral 240 240 Output: Urine 600 Other: Voiding Method Incontinent Incontinent Incontinent # Voids 1 3 - Exam GENERAL EXAM: Alert, very pleasant 81-year-old white female, on 4 L of oxygen and the pulse ox of 97% comfortable in no apparent distress. Patient is currently ambulating on 4 L of oxygen with a walker, tolerating ambulation quite well HEAD: Normocephalic/atraumatic. EYES: Normal reaction of pupils, equal size. Conjunctiva pink, sclera white. NOSE: Clear with pink turbinates. THROAT: No erythema or exudates. NECK: No masses, no JVD, no thyroid enlargement, no adenopathy. CHEST: No chest wall deformity. Symmetrical expansion. LUNGS: Equal air entry with no crackles, no wheezes CVS: Regular rate and rhythm, normal S1 and S2, no gallops, no murmurs, no rubs ABDOMEN: Soft, nontender. No hepatosplenomegaly, normal bowel sounds, no guarding or rigidity. EXTREMITIES: No clubbing, no edema, no cyanosis, 2+ pulses and upper and lower extremities. MUSCULOSKELETAL: Muscle strength and tone normal. SPINE: No scoliosis or deformity SKIN: No rashes CENTRAL NERVOUS SYSTEM: Alert and oriented -3. No focal deficits, tone is normal in all 4 extremities. PSYCHIATRIC: Alert and oriented -3. Appropriate affect. Intact judgment and insight. - Labs CBC & Chem 7: 02/22/21 05:45 02/22/21 05:46 Labs: Abnormal Lab Results - Last 24 Hours (Table) 02/22/21 02/22/21 02/22/21 Range/Units 05:45 05:45 05:46 WBC 11.74 H (4.50-10.00) X 10*3/uL RBC 2.69 L (4.10-5.20) X 10*6/uL Hgb 8.2 L (12.0-15.0) g/dL Hct 27.1 L (37.2-46.3) % MCV 100.7 H (80.0-97.0) fL MCHC 30.3 L (32.0-37.0) g/dL RDW 17.6 H (11.5-14.5) % Absolute Nucleated RBC 0.02 H (0.00-0.00) X 10*3/uL Immature Gran # 0.07 H (0.00-0.04) X 10*3/uL Neutrophils # 11.08 H (1.80-7.70) X 10*3/uL Lymphocytes # 0.15 L (0.90-5.00) X 10*3/uL Eosinophils # 0.01 L (0.04-0.35) X 10*3/uL NRBC/100 WBC Diff 0.2 H (0.0-0.0) /100 WBCS PT 30.7 H (9.0-12.0) sec INR 3.2 H (<1.2) Chloride 92 L (98-107) mmol/L Carbon Dioxide 38 H (22-30) mmol/L BUN 115 H* (7-17) mg/dL Creatinine 3.24 H (0.52-1.04) mg/dL Glucose 118 H (74-99) mg/dL Microbiology - Last 24 Hours (Table) 02/17/21 15:24 Blood Culture - Preliminary Blood No Growth after 96 hours 02/20/21 15:13 Gram Stain - Preliminary Sputum Sputum Culture - Preliminary Assessment and Plan Plan: Assessment: #1. Dyspnea related to acute exacerbation of CHF with diastolic dysfunction, doubt underlying pneumonia, although not completely excluding the possibility #2. Acute exacerbation of COPD #3. Recent hospitalization for acute exacerbation of CHF, discharged home on 02/08/2021 #4. Stage III COPD, with baseline FEV1 of 54% predicted, on home oxygen #5. History of chronic kidney disease stage III at baseline #6. Acute kidney injury #7. History of paroxysmal A. fib, currently in sinus rhythm, on Coumadin #8. Previous history of DVT #9. Hypertension #10. Hyperlipidemia #11. Hypothyroidism #12. History of squamous cell carcinoma of the right lung, status post thoracoscopic wedge resection of the right lower lobe on 05/01/2019 Plan: We will transition IV steroids to oral prednisone Diuretics per cardiology and nephrology Overall clinical stable, breathing is improving Patient is tolerating ambulation, Increase activity as tolerated Wean FiO2 From pulmonary perspective patient is stable for discharge home today and outpatient follow-up with Dr. Charles in the office I performed a history & physical examination of the patient and discussed their management with my nurse practitioner, Rachele Bradshaw. I reviewed the nurse practitioner's note and agree with the documented findings and plan of care. Lung sounds are positive for diffuse crackles. The findings and the impression was discussed with the patient. I attest to the documentation by the nurse practitioner. Time with Patient: Less than 30
--- NOTE | 2021-02-22 13:53 | PN ---
PROGRESS NOTE Patient is seen for followup for chronic kidney disease. She was being diuresed and Lasix has been decreased and currently maintained on 60 mg p.o. daily. Serum creatinine was down to 3.6. We do not have labs today. PHYSICAL EXAMINATION: Patient is comfortable, awake, not in any acute distress. Blood pressure is 140/73. She is afebrile. EXAMINATION OF THE HEART: S1, S2. EXAMINATION OF THE LUNGS: Decreased breath sounds at bases. Abdomen is soft, nontender. Examination of lower extremities shows no evidence of edema. LABS: Labs show sodium 137 from 02/20. No labs available from today. Serum creatinine was 3.68 on 02/20 and BUN of 104. ASSESSMENT: 1. Chronic kidney disease with an element of acute kidney injury associated with recent diuresis. Agree with checking labs today. Maintain on Lasix 60 mg p.o. daily. Patient can be discharged if labs are stable on 40 mg p.o. daily as she was taking 40 mg 3 times a week prior to admission. 2. Anemia of chronic disease, maintained on Aranesp. We will plan for stimulating agents as outpatient as well. 3. Volume overload, now improved. 4. Chronic pulmonary hypertension. 5. Chronic kidney disease mineral bone disorder. 6. Chronic kidney disease stage 4 to 5. Baseline creatinine 2.3 now staying mostly around 3-3.5 mg/dL secondary to nephrosclerosis. PLAN: Agree with checking labs today. Follow up as outpatient in 1-2 weeks time. Maintain Lasix at least 40 mg p.o. daily post discharge. MMODL / IJN: [id number] /
[2021-02-22] MEDS ORDERED: AMOXIC-POT CLAV 875-125MG 1 EACH TAB PO STA (14:16)
[2021-02-22 15:05] VITALS: BP 122/66; TEMP 98.3
[2021-02-22 16:15] VITALS: PULSE 100
[2021-02-22] MEDS ORDERED: WARFARIN 0.5 MG TAB PO ONE (18:00)
--- NOTE | 2021-02-22 23:58 | P.DS ---
Providers Date of admission: 02/18/21 10:42 Attending physician: Pedro Pablo Joseph Consults: 02/17/21 08:40 Consult Physician Urgent Consulting Provider: Jonas Farrar Consult Reason/Comments: chf exacerbation Do you want consulting provider notified?: Yes 02/17/21 08:41 Consult Physician Urgent Consulting Provider: Shannon Petersen Consult Reason/Comments: copd/chf exac Do you want consulting provider notified?: Yes 02/17/21 08:42 Consult Physician Urgent Consulting Provider: Jonh Jules Consult Reason/Comments: renal failure Do you want consulting provider notified?: Yes Primary care physician: Shannon Petersen Hospital Course: Diagnoses: Hypertension Hyperlipidemia Osteoarthritis Hypothyroidism 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 Presents because of dyspnea and coughing him mild worsening hypoxia from 4 L/m of oxygen at home to 5 L in the emergency room. Patient found to have diastolic CHF rather than pneumonia which is felt less likely however patient has elevated pro-calcitonin at 0.41 so she was placed on antibiotics Zosyn. Also patient treated with IV Solu-Medrol for acute COPD exacerbation. Continue with Coumadin for her paroxysmal A. fib. Creatinine remained stable although slightly elevated 3.62 and 3.2 on the day of discharge. Baseline is around 2.3. Planning Analyst was on the case and cleared the patient for discharge and follow-up as an outpatient. patient Coumadin was on hold for INR was supratherapeutic, on the day of discharge was coming down to 3.6 down to 3.2. Patient was instructed to hold her Coumadin dose tonight and to resume her home dose from tomorrow and check her INR in 2-3 days, Patient is DC'd also on 40 mg of oral Lasix daily per personnel arbitrator and Augmentin for 7 days Today patient states that her dyspnea is significantly improved, no chest pain or coughing, only mild tachypnea and she is saturating 97% on 4 L of oxygen per minute Patient was cleared for discharge by all consultants including executive assistant, motion study engineer, personnel arbitrator and executive assistant Problems and management plan were discussed with the patient and he verbalized understanding and acceptance Patient was found stable and can be discharged home however he needs follow-up as an outpatient. Patient was instructed to follow up with PCP within one week and patient agrees Also patient was instructed to follow up with pulmonology in 2 weeks, cardiology Dr. Salamanca in 2 weeks [address] personnel arbitrator Dr. Hawley/Dr. Jules in one week. Patient agrees with staff tried to help her with the appointments Physical exam Gen: patient is a AAOx3, no distress CVS: S1-S2, RRR, no murmur Lungs: B/L CTA, no wheezing Abdomen: soft, no distention, no tenderness, positive bowel sounds Extremity: no leg edema or induration Time spent more than 35 minutes Plan - Discharge Summary Discharge Rx Participant: No New Discharge Prescriptions: New Amoxicillin/Potassium Clav [Augmentin 875-125 Tablet] 1 tab PO BID 7 Days #14 tab predniSONE 10 mg PO DIRECTED #36 tab Lactulose [Cephulac] 20 gm PO DAILY PRN 5 Days #150 ml PRN Reason: Constipation Pantoprazole [Protonix] 40 mg PO AC-BRKFST #[address] Turpin HYDROcodone/APAP 7.5-325MG [[place] 7.5-325] 1 tab PO HS calcitrioL [Rocaltrol] 0.25 mcg PO MOFR Vit C/E/Zn/Coppr/Lutein/Zeaxan [Preservision Areds 2 Softgel] 1 cap PO DAILY Ferrous Sulfate [Iron (65 MG Elemental)] 325 mg PO DAILY Furosemide [Lasix] 40 mg PO MOWEFR Warfarin Sodium [Jantoven] 2.5 mg PO DAILY Darbepoetin Juaquin [Aranesp] 40 mcg SQ Q7D syringe calcium polycarbophiL [Fibercon] 625 mg PO DAILY 30 Days #30 tab Sennosides [Senokot] 8.6 mg PO DAILY 30 Days #30 tab Sodium Bicarbonate Tab 650 mg PO DAILY 30 Days #30 tab ALPRAZolam [Xanax] 0.25 mg PO QID PRN #12 tab PRN Reason: Anxiety Ipratropium-Albuterol Nebulize [Duoneb 0.5 mg-3 mg/3 ml Soln] 3 ml INHALATION QID 30 Days #120 neb Budesonide [Pulmicort Flexhaler] 2 puff INHALATION RT-BID Ipratropium-Albuterol Nebulize [Duoneb 0.5 mg-3 mg/3 ml Soln] 3 ml INHALATION RT-QID PRN ml PRN Reason: Shortness Of Breath Acetaminophen Tab [Tylenol] 650 mg PO Q6HR PRN tab PRN Reason: Mild Pain Discontinued predniSONE See Taper PO DIRECTED Discharge Medication List HYDROcodone/APAP 7.5-325MG [[place] 7.5-325] 1 tab PO HS 05/26/16 [History] calcitrioL [Rocaltrol] 0.25 mcg PO MOFR 03/27/19 [History] Vit C/E/Zn/Coppr/Lutein/Zeaxan [Preservision Areds 2 Softgel] 1 cap PO DAILY 04/02/19 [History] Ferrous Sulfate [Iron (65 MG Elemental)] 325 mg PO DAILY 10/02/20 [History] Furosemide [Lasix] 40 mg PO MOWEFR 01/27/21 [History] Warfarin Sodium [Jantoven] 2.5 mg PO DAILY 01/27/21 [History] ALPRAZolam [Xanax] 0.25 mg PO QID PRN #12 tab 02/08/21 [Rx] Acetaminophen Tab [Tylenol] 650 mg PO Q6HR PRN tab 02/08/21 [Rx] Darbepoetin Juaquin [Aranesp] 40 mcg SQ Q7D syringe 02/08/21 [Rx] Ipratropium-Albuterol Nebulize [Duoneb 0.5 mg-3 mg/3 ml Soln] 3 ml INHALATION QID 30 Days #120 neb 02/08/21 [Rx] Ipratropium-Albuterol Nebulize [Duoneb 0.5 mg-3 mg/3 ml Soln] 3 ml INHALATION RT-QID PRN ml 02/08/21 [Rx] Sennosides [Senokot] 8.6 mg PO DAILY 30 Days #30 tab 02/08/21 [Rx] Sodium Bicarbonate Tab 650 mg PO DAILY 30 Days #30 tab 02/08/21 [Rx] calcium polycarbophiL [Fibercon] 625 mg PO DAILY 30 Days #30 tab 02/08/21 [Rx] Budesonide [Pulmicort Flexhaler] 2 puff INHALATION RT-BID 02/16/21 [History] Amoxicillin/Potassium Clav [Augmentin 875-125 Tablet] 1 tab PO BID 7 Days #14 tab 02/22/21 [Rx] Lactulose [Cephulac] 20 gm PO DAILY PRN 5 Days #150 ml 02/22/21 [Rx] Pantoprazole [Protonix] 40 mg PO AC-BRKFST #30 tablet. 02/22/21 [Rx] predniSONE 10 mg PO DIRECTED #36 tab 02/22/21 [Rx] Follow up Appointment(s)/Referral(s): Shannon Petersen MD [Primary Care Provider] - 02/24/21 2:00 pm Gio David MD [STAFF PHYSICIAN] - 03/11/21 4:30 pm [facility], [NON-STAFF] - 1-2 Days John Jules DO [STAFF PHYSICIAN] - 03/25/21 1:40 pm (personnel arbitrator.Keep scheduled appointment. ) Patient Instructions/Handouts: Heart Failure (DC), Low-Sodium Diet (DC) Activity/Diet/Wound Care/Special Instructions: Heart healthy diet Activity is restricted till you see your doctor We recommend to hold your Coumadin today on 02/22. Resume the Coumad in/warfarin tomorrow 02/23. We recommend to check your INR in 2-3 days. Target INR is 2-3 Discharge Disposition: HOME WITH HOME HEALTH SERVICES
[2021-02-23] MEDS ORDERED: predniSONE 20 MG TAB PO SCH (09:00)
== END 2021-02-22 18:00 | disposition home health service (06) | DRG 291 ==
LOC: EC 21:02 → 6NMEDSUR 22:21 → OBSVTOIN 02-18 10:42
PROVIDERS: ADMIT Internal Medicine; ATTEND Internal Medicine
DX: I13.2 Hypertensive heart and chronic kidney disease with heart failure and with stage 5 chronic kidney disease, or end stage renal disease (principal); I50.33 Acute on chronic diastolic (congestive) heart failure; J96.21 Acute and chronic respiratory failure with hypoxia; N17.0 Acute kidney failure with tubular necrosis; E87.1 Hypo-osmolality and hyponatremia; J44.1 Chronic obstructive pulmonary disease with (acute) exacerbation; J98.11 Atelectasis; N18.5 Chronic kidney disease, stage 5; D63.1 Anemia in chronic kidney disease; E03.9 Hypothyroidism, unspecified; E78.5 Hyperlipidemia, unspecified; E87.5 Hyperkalemia; I08.1 Rheumatic disorders of both mitral and tricuspid valves; I27.20 Pulmonary hypertension, unspecified; I48.0 Paroxysmal atrial fibrillation; J84.10 Pulmonary fibrosis, unspecified; M19.90 Unspecified osteoarthritis, unspecified site; E83.9 Disorder of mineral metabolism, unspecified; Z20.822 Contact with and (suspected) exposure to COVID-19; R32 Unspecified urinary incontinence; R79.1 Abnormal coagulation profile; M10.9 Gout, unspecified; T38.0X5A Adverse effect of glucocorticoids and synthetic analogues, initial encounter; Z79.01 Long term (current) use of anticoagulants; Z79.899 Other long term (current) drug therapy; Z82.49 Family history of ischemic heart disease and other diseases of the circulatory system; Z82.5 Family history of asthma and other chronic lower respiratory diseases; Z83.3 Family history of diabetes mellitus; Z85.118 Personal history of other malignant neoplasm of bronchus and lung; Z86.718 Personal history of other venous thrombosis and embolism; Z86.79 Personal history of other diseases of the circulatory system; Z87.01 Personal history of pneumonia (recurrent); Z87.891 Personal history of nicotine dependence; Z99.81 Dependence on supplemental oxygen; Z98.51 Tubal ligation status; Z98.42 Cataract extraction status, left eye; Z98.41 Cataract extraction status, right eye; Z84.1 Family history of disorders of kidney and ureter
CPT/HCPCS: 36415; 71045; 71046; 71250; 76770; 80048; 80053; 80202; 82728; 83540; 83550; 83605; 83735; 83880; 84145; 84484; 85025; 85610; 85730; 87040; 87070; 87205; 87635; 93005; 94640; 94664; 94760; 99285

== ENCOUNTER 2021-03-08 09:45 | Inpatient (IN) | payer MEDICARE, BC ==
[2021-03-08] MEDS ORDERED: IPRATROPIUM-ALBUTEROL 3 ML NEB INHALATION STA (09:53)
--- NOTE | 2021-03-08 10:27 | ED ---
SOB HPI - General Chief Complaint: Shortness of Breath Stated Complaint: VINAYAK Time Seen by Provider: 03/08/21 09:45 Source: patient, EMS, RN notes reviewed Mode of arrival: EMS Limitations: no limitations - History of Present Illness Initial Comments: This 81-year-old female with a history of COPD CHF lung cancer with right lower lobe resection who states she's been having difficulty breathing all night since chest radiating over chest pain fevers chills nausea vomiting sweats she finally called EMS she was brought in in to get a breathing treatment with some improvement in her ability to breathe. She denies any other complaints or modifying factors this time. MD Complaint: shortness of breath - Related Data Home Medications Medication Instructions Recorded Confirmed HYDROcodone/APAP 7.5-325MG [[place] 1 tab PO HS 05/26/16 03/08/21 7.5-325] calcitrioL [Rocaltrol] 0.25 mcg PO MOFR 03/27/19 03/08/21 Vit C/E/Zn/Coppr/Lutein/Zeaxan 1 cap PO DAILY 04/02/19 03/08/21 [Preservision Areds 2 Softgel] Ferrous Sulfate [Iron (65 MG 325 mg PO DAILY 10/02/20 03/08/21 Elemental)] Furosemide [Lasix] 40 mg PO MOWEFR 01/27/21 03/08/21 Warfarin Sodium [Jantoven] 2.5 - 5 mg PO DIRECTED 01/27/21 03/08/21 Budesonide [Pulmicort Flexhaler] 2 puff INHALATION RT-BID 02/16/21 03/08/21 predniSONE See Taper PO DIRECTED 03/08/21 03/08/21 Previous Rx's Medication Instructions Recorded ALPRAZolam [Xanax] 0.25 mg PO QID PRN #12 tab 02/08/21 Acetaminophen Tab [Tylenol] 650 mg PO Q6HR PRN tab 02/08/21 Darbepoetin Juaquin [Aranesp] 40 mcg SQ Q7D syringe 02/08/21 Ipratropium-Albuterol Nebulize 3 ml INHALATION QID 30 Days #120 02/08/21 [Duoneb 0.5 mg-3 mg/3 ml Soln] neb Ipratropium-Albuterol Nebulize 3 ml INHALATION RT-QID PRN ml 02/08/21 [Duoneb 0.5 mg-3 mg/3 ml Soln] Sennosides [Senokot] 8.6 mg PO DAILY 30 Days #30 tab 02/08/21 Sodium Bicarbonate Tab 650 mg PO DAILY 30 Days #30 tab 02/08/21 calcium polycarbophiL [Fibercon] 625 mg PO DAILY 30 Days #30 tab 02/08/21 Lactulose [Cephulac] 20 gm PO DAILY PRN 5 Days #150 ml 02/22/21 Pantoprazole [Protonix] 40 mg PO AC-BRKFST #30 tablet. 02/22/21 Allergies Allergy/AdvReac Type Severity Reaction Status Date / Time No Known Allergies Allergy Verified 03/08/21 13:08 Review of Systems ROS Statement: Those systems with pertinent positive or pertinent negative responses have been documented in the HPI. ROS Other: All systems not noted in ROS Statement are negative. Past Medical History Past Medical History: Atrial Fibrillation, Cancer, COPD, Deep Vein Thrombosis (DVT), Eye Disorder, Hyperlipidemia, Hypertension, Osteoarthritis (OA), Pneumonia, Renal Disease, Thyroid Disorder Additional Past Medical History / Comment(s): Pt recently admitted to [facility] on 01/29/21 with exacerbation COPD/tracheobronchitis. Other hx: 2019 diagnosed with R lung cancer and had surgery, pneumonia with sepsis, home oxygen ATC, DVT L arm with surgery, CKD stage III, chronic anemia, diverticular disease, bilateral macular degeneration, bilateral lower leg edema, past gout, valvular disease. History of Any Multi-Drug Resistant Organisms: None Reported Past Surgical History: Tubal Ligation Additional Past Surgical History / Comment(s): L arm thromboembolectomy, endurant abdominal stent graft feb 28 2016, thorascopic R wedge resection, colonoscopy, bilateral cataract removals Past Anesthesia/Blood Transfusion Reactions: Previous Problems w/ Anesthesia, Family History of Problems w/ Anesthesia Additional Past Anesthesia/Blood Transfusion Reaction / Comment(s): Slow to Hellen cintia, patient and daughter. Past Psychological History: No Psychological Hx Reported Smoking Status: Former smoker - Past Family History Father Family Medical History: COPD, Diabetes Mellitus, Myocardial Infarction ([place]) Mother History Unknown: Yes Additional Family Medical History / Comment(s): at age 31 - cause unknown Brother(s) Family Medical History: Respiratory Disorder Additional Family Medical History / Comment(s): states kidney and heart history Sister(s) Family Medical History: Myocardial Infarction ([place]), Renal Disease Additional Family Medical History / Comment(s): dialysis General Exam - General Exam Comments Initial Comments: This is a well-developed well-nourished awake alert oriented 3 female Limitations: no limitations General appearance: alert, anxious Head exam: Present: atraumatic, normocephalic, normal inspection Eye exam: Present: normal appearance, PERRL, EOMI. Absent: scleral icterus, conjunctival injection, periorbital swelling ENT exam: Present: normal exam, mucous membranes moist Neck exam: Present: normal inspection, full ROM, other (No stridor JVD or bruit s). Absent: tenderness, meningismus, lymphadenopathy Respiratory exam: Present: rales (Bilateral lower lobe rales), decreased breath sounds. Absent: respiratory distress, wheezes, rhonchi, stridor Cardiovascular Exam: Present: normal rhythm, tachycardia, normal heart sounds. Absent: systolic murmur, diastolic murmur, rubs, gallop, clicks GI/Abdominal exam: Present: soft, normal bowel sounds. Absent: distended, tenderness, guarding, rebound, rigid Extremities exam: Present: full ROM, normal capillary refill, other (Stasis dermatitis noted bilaterally). Absent: tenderness, pedal edema, joint swelling, calf tenderness Back exam: Present: normal inspection Neurological exam: Present: alert, oriented X3, CN II-XII intact Psychiatric exam: Present: normal affect, normal mood Skin exam: Present: warm, dry, intact, other (As above). Absent: rash Course Vital Signs 03/08/21 03/08/21 03/08/21 09:52 10:30 10:35 Temperature 100.1 F H Pulse Rate 113 H 113 H 112 H Respiratory 18 Rate Blood Pressure 135/66 O2 Sat by Pulse 97 Oximetry 03/08/21 03/08/21 03/08/21 11:03 11:05 12:54 Temperature Pulse Rate 102 H 101 H Respiratory 18 20 18 Rate Blood Pressure 122/61 124/67 O2 Sat by Pulse 97 96 Oximetry 03/08/21 03/08/21 13:47 14:00 Temperature 97.1 F L Pulse Rate 81 116 H Respiratory 16 Rate Blood Pressure 106/60 O2 Sat by Pulse 98 Oximetry Medical Decision Making - Medical Decision Making I did discuss findings with the patient also with Dr. barron patient be admitted evidence of CHF and pleural effusions anemia renal insufficiency and elevated troponin - Lab Data Result diagrams: 03/08/21 10:03 03/08/21 10:03 Lab Results 03/08/21 03/08/21 03/08/21 Range/Units 10:03 10:03 10:03 WBC 11.6 H (3.8-10.6) k/uL RBC 2.73 L (3.80-5.40) m/uL Hgb 8.3 L (11.4-16.0) gm/dL Hct 25.9 L (34.0-46.0) % MCV 94.9 (80.0-100.0) fL MCH 30.3 (25.0-35.0) pg MCHC 31.9 (31.0-37.0) g/dL RDW 16.2 H (11.5-15.5) % Plt Count 238 (150-450) k/uL MPV 7.7 Neutrophils % 91 % Lymphocytes % 6 % Monocytes % 2 % Eosinophils % 0 % Basophils % 0 % Neutrophils # 10.6 H (1.3-7.7) k/uL Lymphocytes # 0.7 L (1.0-4.8) k/uL Monocytes # 0.3 (0-1.0) k/uL Eosinophils # 0.0 (0-0.7) k/uL Basophils # 0.0 (0-0.2) k/uL Hypochromasia Slight Anisocytosis Slight PT 37.2 H (9.0-12.0) sec INR 3.9 H (<1.2) APTT 39.1 H (22.0-30.0) sec Sodium 134 L (137-145) mmol/L Potassium 4.1 (3.5-5.1) mmol/L Chloride 94 L (98-107) mmol/L Carbon Dioxide 37 H (22-30) mmol/L Anion Gap 3 mmol/L BUN 69 H (7-17) mg/dL Creatinine 2.76 H (0.52-1.04) mg/dL Est GFR (CKD-EPI)AfAm 18 (>60 ml/min/1.73 sqM) Est GFR (CKD-EPI)NonAf 15 (>60 ml/min/1.73 sqM) Glucose 115 H (74-99) mg/dL Plasma Lactic Acid Micky (0.7-2.0) mmol/L Calcium 8.9 (8.4-10.2) mg/dL Magnesium 2.2 (1.6-2.3) mg/dL Total Bilirubin 0.6 (0.2-1.3) mg/dL AST 20 (14-36) U/L ALT 16 (4-34) U/L Alkaline Phosphatase 42 (38-126) U/L Creatine Kinase <20 L (30-135) U/L Troponin I (0.000-0.034) ng/mL NT-Pro-B Natriuret Pep pg/mL Total Protein 5.4 L (6.3-8.2) g/dL Albumin 2.8 L (3.5-5.0) g/dL Urine Color Urine Appearance (Clear) Urine pH (5.0-8.0) Ur Specific [place] (1.001-1.035) Urine Protein (Negative) Urine Glucose (UA) (Negative) Urine Ketones (Negative) Urine Blood (Negative) Urine Nitrite (Negative) Urine Bilirubin (Negative) Urine Urobilinogen (<2.0) mg/dL Ur Leukocyte Esterase (Negative) Urine RBC (0-5) /hpf Urine WBC (0-5) /hpf Ur Squamous Epith Cells (0-4) /hpf Urine Bacteria (None) /hpf Coronavirus (PCR) (Not Detectd) 03/08/21 03/08/21 03/08/21 Range/Units 10:03 10:03 10:03 WBC (3.8-10.6) k/uL RBC (3.80-5.40) m/uL Hgb (11.4-16.0) gm/dL Hct (34.0-46.0) % MCV (80.0-100.0) fL MCH (25.0-35.0) pg MCHC (31.0-37.0) g/dL RDW (11.5-15.5) % Plt Count (150-450) k/uL MPV Neutrophils % % Lymphocytes % % Monocytes % % Eosinophils % % Basophils % % Neutrophils # (1.3-7.7) k/uL Lymphocytes # (1.0-4.8) k/uL Monocytes # (0-1.0) k/uL Eosinophils # (0-0.7) k/uL Basophils # (0-0.2) k/uL Hypochromasia Anisocytosis PT (9.0-12.0) sec INR (<1.2) APTT (22.0-30.0) sec Sodium (137-145) mmol/L Potassium (3.5-5.1) mmol/L Chloride (98-107) mmol/L Carbon Dioxide (22-30) mmol/L Anion Gap mmol/L BUN (7-17) mg/dL Creatinine (0.52-1.04) mg/dL Est GFR (CKD-EPI)AfAm (>60 ml/min/1.73 sqM) Est GFR (CKD-EPI)NonAf (>60 ml/min/1.73 sqM) Glucose (74-99) mg/dL Plasma Lactic Acid Micky 0.8 (0.7-2.0) mmol/L Calcium (8.4-10.2) mg/dL Magnesium (1.6-2.3) mg/dL Total Bilirubin (0.2-1.3) mg/dL AST (14-36) U/L ALT (4-34) U/L Alkaline Phosphatase (38-126) U/L Creatine Kinase (30-135) U/L Troponin I 0.056 H* (0.000-0.034) ng/mL NT-Pro-B Natriuret Pep 8920 pg/mL Total Protein (6.3-8.2) g/dL Albumin (3.5-5.0) g/dL Urine Color Urine Appearance (Clear) Urine pH (5.0-8.0) Ur Specific [place] (1.001-1.035) Urine Protein (Negative) Urine Glucose (UA) (Negative) Urine Ketones (Negative) Urine Blood (Negative) Urine Nitrite (Negative) Urine Bilirubin (Negative) Urine Urobilinogen (<2.0) mg/dL Ur Leukocyte Esterase (Negative) Urine RBC (0-5) /hpf Urine WBC (0-5) /hpf Ur Squamous Epith Cells (0-4) /hpf Urine Bacteria (None) /hpf Coronavirus (PCR) (Not Detectd) 03/08/21 03/08/21 Range/Units 12:54 13:23 WBC (3.8-10.6) k/uL RBC (3.80-5.40) m/uL Hgb (11.4-16.0) gm/dL Hct (34.0-46.0) % MCV (80.0-100.0) fL MCH (25.0-35.0) pg MCHC (31.0-37.0) g/dL RDW (11.5-15.5) % Plt Count (150-450) k/uL MPV Neutrophils % % Lymphocytes % % Monocytes % % Eosinophils % % Basophils % % Neutrophils # (1.3-7.7) k/uL Lymphocytes # (1.0-4.8) k/uL Monocytes # (0-1.0) k/uL Eosinophils # (0-0.7) k/uL Basophils # (0-0.2) k/uL Hypochromasia Anisocytosis PT (9.0-12.0) sec INR (<1.2) APTT (22.0-30.0) sec Sodium (137-145) mmol/L Potassium (3.5-5.1) mmol/L Chloride (98-107) mmol/L Carbon Dioxide (22-30) mmol/L Anion Gap mmol/L BUN (7-17) mg/dL Creatinine (0.52-1.04) mg/dL Est GFR (CKD-EPI)AfAm (>60 ml/min/1.73 sqM) Est GFR (CKD-EPI)NonAf (>60 ml/min/1.73 sqM) Glucose (74-99) mg/dL Plasma Lactic Acid Micky (0.7-2.0) mmol/L Calcium (8.4-10.2) mg/dL Magnesium (1.6-2.3) mg/dL Total Bilirubin (0.2-1.3) mg/dL AST (14-36) U/L ALT (4-34) U/L Alkaline Phosphatase (38-126) U/L Creatine Kinase (30-135) U/L Troponin I (0.000-0.034) ng/mL NT-Pro-B Natriuret Pep pg/mL Total Protein (6.3-8.2) g/dL Albumin (3.5-5.0) g/dL Urine Color Light Yellow Urine Appearance Cloudy H (Clear) Urine pH 6.5 (5.0-8.0) Ur Specific [place] 1.009 (1.001-1.035) Urine Protein 1+ H (Negative) Urine Glucose (UA) Negative (Negative) Urine Ketones Negative (Negative) Urine Blood Negative (Negative) Urine Nitrite Negative (Negative) Urine Bilirubin Negative (Negative) Urine Urobilinogen <2.0 (<2.0) mg/dL Ur Leukocyte Esterase Negative (Negative) Urine RBC 1 (0-5) /hpf Urine WBC <1 (0-5) /hpf Ur Squamous Epith Cells <1 (0-4) /hpf Urine Bacteria Rare H (None) /hpf Coronavirus (PCR) Not Detected (Not Detectd) - EKG Data -: EKG Interpreted by Me EKG Comments: Sinus tachycardia rate 110. Interval 146 respirations 4 QT since QTC 338/457 possible left atrial enlargement - Radiology Data Radiology results: report reviewed (Immunization pleural effusions no definitive pneumonia), image reviewed Disposition Clinical Impression: Congestive heart failure, Pleural effusion, Renal insufficiency syndrome, Atypical chest pain, Elevated troponin, Anemia Disposition: ADMITTED IP TO THIS HOSP Condition: Fair Referrals: Shannon Petersen MD [Primary Care Provider] - 1-2 days
[2021-03-08 10:28] LABS: Anisocytosis Slight; Basophils % (A) 0 %; Eosinophils % (A) 0 %; HCT 25.9 % (34.0-46.0); HGB 8.3 gm/dL (11.4-16.0); Hypochromasia Slight; Lymphocytes # (A) 0.7 k/uL (1.0-4.8); Lymphocytes % (A) 6 %; MCH 30.3 pg (25.0-35.0); MCHC 31.9 g/dL (31.0-37.0); MCV 94.9 fL (80.0-100.0); Mean Platelet Volume 7.7; Monocytes # (A) 0.3 k/uL (0-1.0); Monocytes % (A) 2 %; Neutrophils # (A) 10.6 k/uL (1.3-7.7); Neutrophils % (A) 91 %; Platelet Count 238 k/uL (150-450); RBC 2.73 m/uL (3.80-5.40); RDW 16.2 % (11.5-15.5); WBC 11.6 k/uL (3.8-10.6)
[2021-03-08 11:02] LABS: ALT 16 U/L (4-34); AST 20 U/L (14-36); African American GFR (CKD) 18 (>60 ml/min/1.73 sqM); Albumin 2.8 g/dL (3.5-5.0); Alkaline Phosphatase 42 U/L (38-126); Anion Gap 3 mmol/L; Blood Urea Nitrogen 69 mg/dL (7-17); Calcium 8.9 mg/dL (8.4-10.2); Carbon Dioxide 37 mmol/L (22-30); Chloride 94 mmol/L (98-107); Creatine Kinase <20 U/L (30-135); Glucose 115 mg/dL (74-99); Magnesium 2.2 mg/dL (1.6-2.3); Non-African American GFR(CKD) 15 (>60 ml/min/1.73 sqM); Potassium 4.1 mmol/L (3.5-5.1); Sodium 134 mmol/L (137-145); Total Bilirubin 0.6 mg/dL (0.2-1.3); Total Protein 5.4 g/dL (6.3-8.2)
[2021-03-08 11:04] LABS: INR 3.9 (<1.2); Partial Thromboplastin Time 39.1 sec (22.0-30.0); Prothrombin Time 37.2 sec (9.0-12.0)
--- NOTE | 2021-03-08 11:08 | XR ---
EXAMINATION TYPE: XR chest 2V DATE OF EXAM: 03/08/2021 COMPARISON: NONE HISTORY: CHF. TECHNIQUE: Single frontal view of the chest is obtained. FINDINGS: There is persistent cardiomegaly with small bilateral pleural effusions. Background chroni c emphysematous and pulmonary fibrotic change relatively stable. Right basilar airspace opacity has s lightly worsened. Osseous structures remain demineralized. IMPRESSION: 1. Persistent cardiomegaly with small bilateral pleural effusions. Diffuse interstitial airspace opac ities with some confluence are relatively stable. Slightly increased right basilar airspace opacity.
[2021-03-08] MEDS ORDERED: FUROSEMIDE 10 MG/ML 4 ML VIAL IV STA (11:12)
[2021-03-08 13:54] LABS: Appearance,Urine Cloudy (Clear); Bacteria,Urine Rare /hpf; Bilirubin,Urine Negative (Negative); Blood,Urine Negative (Negative); Color,Urine Light Yellow; Glucose,Urine (UA) Negative (Negative); Ketones,Urine Negative (Negative); Leukocyte Esterase,Urine Negative (Negative); Nitrite,Urine Negative (Negative); PH, Urine 6.5 (5.0-8.0); Protein,Urine 1+ (Negative); RBC,Urine 1 /hpf (0-5); Specific Gravity,Urine 1.009 (1.001-1.035); Squamous Epithelial Cell,Urine <1 /hpf (0-4); Urobilinogen,Urine <2.0 mg/dL (<2.0); WBC,Urine <1 /hpf (0-5)
--- NOTE | 2021-03-08 14:32 | ED ---
Medical Decision Making - Lab Data Result diagrams: 03/08/21 10:03 03/08/21 10:03 Lab Results 03/08/21 03/08/21 03/08/21 Range/Units 10:03 10:03 10:03 WBC 11.6 H (3.8-10.6) k/uL RBC 2.73 L (3.80-5.40) m/uL Hgb 8.3 L (11.4-16.0) gm/dL Hct 25.9 L (34.0-46.0) % MCV 94.9 (80.0-100.0) fL MCH 30.3 (25.0-35.0) pg MCHC 31.9 (31.0-37.0) g/dL RDW 16.2 H (11.5-15.5) % Plt Count 238 (150-450) k/uL MPV 7.7 Neutrophils % 91 % Lymphocytes % 6 % Monocytes % 2 % Eosinophils % 0 % Basophils % 0 % Neutrophils # 10.6 H (1.3-7.7) k/uL Lymphocytes # 0.7 L (1.0-4.8) k/uL Monocytes # 0.3 (0-1.0) k/uL Eosinophils # 0.0 (0-0.7) k/uL Basophils # 0.0 (0-0.2) k/uL Hypochromasia Slight Anisocytosis Slight PT 37.2 H (9.0-12.0) sec INR 3.9 H (<1.2) APTT 39.1 H (22.0-30.0) sec Sodium 134 L (137-145) mmol/L Potassium 4.1 (3.5-5.1) mmol/L Chloride 94 L (98-107) mmol/L Carbon Dioxide 37 H (22-30) mmol/L Anion Gap 3 mmol/L BUN 69 H (7-17) mg/dL Creatinine 2.76 H (0.52-1.04) mg/dL Est GFR (CKD-EPI)AfAm 18 (>60 ml/min/1.73 sqM) Est GFR (CKD-EPI)NonAf 15 (>60 ml/min/1.73 sqM) Glucose 115 H (74-99) mg/dL Plasma Lactic Acid Micky (0.7-2.0) mmol/L Calcium 8.9 (8.4-10.2) mg/dL Magnesium 2.2 (1.6-2.3) mg/dL Total Bilirubin 0.6 (0.2-1.3) mg/dL AST 20 (14-36) U/L ALT 16 (4-34) U/L Alkaline Phosphatase 42 (38-126) U/L Creatine Kinase <20 L (30-135) U/L Troponin I (0.000-0.034) ng/mL NT-Pro-B Natriuret Pep pg/mL Total Protein 5.4 L (6.3-8.2) g/dL Albumin 2.8 L (3.5-5.0) g/dL Urine Color Urine Appearance (Clear) Urine pH (5.0-8.0) Ur Specific Susan (1.001-1.035) Urine Protein (Negative) Urine Glucose (UA) (Negative) Urine Ketones (Negative) Urine Blood (Negative) Urine Nitrite (Negative) Urine Bilirubin (Negative) Urine Urobilinogen (<2.0) mg/dL Ur Leukocyte Esterase (Negative) Urine RBC (0-5) /hpf Urine WBC (0-5) /hpf Ur Squamous Epith Cells (0-4) /hpf Urine Bacteria (None) /hpf Coronavirus (PCR) (Not Detectd) 03/08/21 03/08/21 03/08/21 Range/Units 10:03 10:03 10:03 WBC (3.8-10.6) k/uL RBC (3.80-5.40) m/uL Hgb (11.4-16.0) gm/dL Hct (34.0-46.0) % MCV (80.0-100.0) fL MCH (25.0-35.0) pg MCHC (31.0-37.0) g/dL RDW (11.5-15.5) % Plt Count (150-450) k/uL MPV Neutrophils % % Lymphocytes % % Monocytes % % Eosinophils % % Basophils % % Neutrophils # (1.3-7.7) k/uL Lymphocytes # (1.0-4.8) k/uL Monocytes # (0-1.0) k/uL Eosinophils # (0-0.7) k/uL Basophils # (0-0.2) k/uL Hypochromasia Anisocytosis PT (9.0-12.0) sec INR (<1.2) APTT (22.0-30.0) sec Sodium (137-145) mmol/L Potassium (3.5-5.1) mmol/L Chloride (98-107) mmol/L Carbon Dioxide (22-30) mmol/L Anion Gap mmol/L BUN (7-17) mg/dL Creatinine (0.52-1.04) mg/dL Est GFR (CKD-EPI)AfAm (>60 ml/min/1.73 sqM) Est GFR (CKD-EPI)NonAf (>60 ml/min/1.73 sqM) Glucose (74-99) mg/dL Plasma Lactic Acid Micky 0.8 (0.7-2.0) mmol/L Calcium (8.4-10.2) mg/dL Magnesium (1.6-2.3) mg/dL Total Bilirubin (0.2-1.3) mg/dL AST (14-36) U/L ALT (4-34) U/L Alkaline Phosphatase (38-126) U/L Creatine Kinase (30-135) U/L Troponin I 0.056 H* (0.000-0.034) ng/mL NT-Pro-B Natriuret Pep 8920 pg/mL Total Protein (6.3-8.2) g/dL Albumin (3.5-5.0) g/dL Urine Color Urine Appearance (Clear) Urine pH (5.0-8.0) Ur Specific Susan (1.001-1.035) Urine Protein (Negative) Urine Glucose (UA) (Negative) Urine Ketones (Negative) Urine Blood (Negative) Urine Nitrite (Negative) Urine Bilirubin (Negative) Urine Urobilinogen (<2.0) mg/dL Ur Leukocyte Esterase (Negative) Urine RBC (0-5) /hpf Urine WBC (0-5) /hpf Ur Squamous Epith Cells (0-4) /hpf Urine Bacteria (None) /hpf Coronavirus (PCR) (Not Detectd) 03/08/21 03/08/21 Range/Units 12:54 13:23 WBC (3.8-10.6) k/uL RBC (3.80-5.40) m/uL Hgb (11.4-16.0) gm/dL Hct (34.0-46.0) % MCV (80.0-100.0) fL MCH (25.0-35.0) pg MCHC (31.0-37.0) g/dL RDW (11.5-15.5) % Plt Count (150-450) k/uL MPV Neutrophils % % Lymphocytes % % Monocytes % % Eosinophils % % Basophils % % Neutrophils # (1.3-7.7) k/uL Lymphocytes # (1.0-4.8) k/uL Monocytes # (0-1.0) k/uL Eosinophils # (0-0.7) k/uL Basophils # (0-0.2) k/uL Hypochromasia Anisocytosis PT (9.0-12.0) sec INR (<1.2) APTT (22.0-30.0) sec Sodium (137-145) mmol/L Potassium (3.5-5.1) mmol/L Chloride (98-107) mmol/L Carbon Dioxide (22-30) mmol/L Anion Gap mmol/L BUN (7-17) mg/dL Creatinine (0.52-1.04) mg/dL Est GFR (CKD-EPI)AfAm (>60 ml/min/1.73 sqM) Est GFR (CKD-EPI)NonAf (>60 ml/min/1.73 sqM) Glucose (74-99) mg/dL Plasma Lactic Acid Micky (0.7-2.0) mmol/L Calcium (8.4-10.2) mg/dL Magnesium (1.6-2.3) mg/dL Total Bilirubin (0.2-1.3) mg/dL AST (14-36) U/L ALT (4-34) U/L Alkaline Phosphatase (38-126) U/L Creatine Kinase (30-135) U/L Troponin I (0.000-0.034) ng/mL NT-Pro-B Natriuret Pep pg/mL Total Protein (6.3-8.2) g/dL Albumin (3.5-5.0) g/dL Urine Color Light Yellow Urine Appearance Cloudy H (Clear) Urine pH 6.5 (5.0-8.0) Ur Specific Susan 1.009 (1.001-1.035) Urine Protein 1+ H (Negative) Urine Glucose (UA) Negative (Negative) Urine Ketones Negative (Negative) Urine Blood Negative (Negative) Urine Nitrite Negative (Negative) Urine Bilirubin Negative (Negative) Urine Urobilinogen <2.0 (<2.0) mg/dL Ur Leukocyte Esterase Negative (Negative) Urine RBC 1 (0-5) /hpf Urine WBC <1 (0-5) /hpf Ur Squamous Epith Cells <1 (0-4) /hpf Urine Bacteria Rare H (None) /hpf Coronavirus (PCR) Not Detected (Not Detectd) Disposition Clinical Impression: Congestive heart failure, Pleural effusion, Renal insufficiency syndrome, Atypical chest pain, Elevated troponin, Anemia, Fever Disposition: ADMITTED IP TO THIS HOSP Condition: Fair Referrals: Shannon Petersen MD [Primary Care Provider] - 1-2 days
[2021-03-08] MEDS ORDERED: LACTULOSE 20 GM/30 ML CUP PO PRN (14:36)
[2021-03-08] MEDS ORDERED: cefTRIAXone IN SWFI 1,000 MG/10 ML SYRINGE IVP STA (14:36)
[2021-03-08] MEDS ORDERED: WARFARIN 5 MG TAB PO SCH (14:45)
[2021-03-08] MEDS ORDERED: DARBEPOETIN ALFA 40 MCG/0.4 ML SYRINGE SQ SCH (15:00)
[2021-03-08] MEDS: FUROSEMIDE 10 MG/ML 4 ML VIAL IV SCH ×2 (16:20→21:51)
[2021-03-08] MEDS: predniSONE 10 MG TAB PO SCH (16:37)
[2021-03-08] MEDS: SODIUM CHLORIDE 0.9% 1,000 ML IV SCH (16:38)
[2021-03-08] MEDS ORDERED: WARFARIN 0.5 MG TAB PO ONE (18:00)
[2021-03-08] MEDS: FLUTICASONE 110 MCG INHALER INHALATION SCH (20:38)
[2021-03-08] MEDS: IPRATROPIUM-ALBUTEROL 3 ML NEB INHALATION PRN (20:39)
[2021-03-08] MEDS: HYDROcodone/APAP 7.5-325MG 1 EACH TAB PO SCH (21:51)
--- NOTE | 2021-03-08 22:15 | HP ---
HISTORY AND PHYSICAL DATE OF SERVICE: 03/08/2021 CHIEF COMPLAINT: Shortness of breath. HISTORY OF PRESENT ILLNESS: This 81-year-old woman the past history of atrial fibrillation, history of chronic obstructive pulmonary disease, history of DVT, history of hypertension, hyperlipidemia, history pneumonia, was recently admitted with exacerbation of COPD tracheobronchitis. Patient also had right lung cancer. The patient also had pneumonia, sepsis. Now patient is complaining of shortness of breath and the patient admitted for further evaluation and treatment. The patient also had some swelling of the left foot also. Chest x-ray showed persistent cardiomegaly with bilateral pleural effusions. Diffuse initial air space opacities slightly increased compared to the previous one. Otherwise sodium is 134 and troponin is also elevated up to 0.047, which is rather chronic in nature. The creatinine was elevated up to 2.76, which is also baseline indicating chronic kidney disease stage 3 to 4. There is no history of fever, rigors or chills at this time. The patient is followed by Dr. Petersen in the outpatient setting. PAST MEDICAL HISTORY: History of atrial flutter, atrial fibrillation, history of chronic obstructive pulmonary disease, history of DVT, hypertension, hyperlipidemia, history of DJD, history of pneumonia, history of hypothyroidism, history of chronic obstructive pulmonary disease. MEDICATIONS: Prior to admission, home medications are: Vitamin E, zinc, calcium, calcitriol, lactulose, prednisone, Senokot, Protonix, Lasix. Doses reviewed. ALLERGIES: None. FAMILY HISTORY: History of COPD, diabetes, myocardial infarction in the family. SOCIAL HISTORY: Previous history of smoking. No history of alcohol. REVIEW OF SYSTEMS: ENT: Diminished vision. Diminished hearing. CARDIOVASCULAR system: As mentioned earlier. RESPIRATORY: As mentioned earlier. GI no nausea. no dysuria. NERVOUS SYSTEM: As mentioned earlier. ALLERGY/IMMUNOLOGY: No asthma, or hay fever. MUSCULOSKELETAL: As mentioned earlier. HEMATOLOGY/ONCOLOGY: No history of anemia. ENDOCRINE: As mentioned earlier. CONSTITUTIONAL: As mentioned earlier. DERMATOLOGY: Negative. RHEUMATOLOGY negative. PSYCHIATRY as mentioned. PHYSICAL EXAMINATION: Alert and oriented x2. Pulse is 102. Blood pressure 120/74, respiration 18, temperature 98.4, pulse ox 97% on 4 L. HEENT is conjunctivae normal. Oral mucosa moist. NECK is no jugular venous distention. No carotid bruit. No lymph node enlargement. CARDIOVASCULAR SYSTEM: S1, S2 muffled. No S3, no S4. RESPIRATION: Breath sounds diminished in the bases. A few scattered rhonchi and basilar crackles. ABDOMEN: Soft, nontender. No mass palpable. LEGS: Bilateral leg edema, left more than the right. Nervous system: Higher functions as mentioned. Moves all 4 limbs. No focal motor or sensory deficits. Lymphatics: No lymph nodes palpable in the neck, axillae or groin. SKIN: No ulcer, no rash and no bleeding. JOINTS: No active deforming arthropathy. LAB: WBC 11.7, hemoglobin is 8.3, sodium is 134, creatinine is 2.7. Covid 19 is negative. ASSESSMENT: 1. Shortness of breath possibly multifactorial with chronic obstructive pulmonary disease acute exacerbation as well as congestive heart failure acute exacerbation with acute on chronic diastolic dysfunction, ejection fraction 55 to 60%. 2. Rule out super added pneumonia acute purulent tracheobronchitis. 3. Increased WBC. 4. Anemia, normocytic. 5. Chronic kidney disease stage 3. 6. Troponin 0.050 rather chronic elevation of undetermined significance. 7. History of atrial fibrillation. 8. History of chronic obstructive pulmonary disease. 9. History of deep vein thrombosis. 10.Hypertension. 11.Hyperlipidemia. 12.History of degenerative joint disease. 13.History of pneumonia. 14.History of right lung cancer surgery. 15.Right pleural effusion. 16.Remote history of nicotine dependence. RECOMMENDATIONS AND DISCUSSION: This 81-year-old woman who presented with multiple complex medical issues, we will monitor the patient closely, continue the current medications, management and symptomatic treatment. We will initiate diuretics. Empiric antibiotics also have been given. Otherwise, Cardiology, pulmonary consultation. Resume the home medication. Monitor PT/INR closely. Prognosis guarded because of multiple complex medical issues. A copy of this dictation is being forwarded to Dr. Petersen who is the primary physician. MMODL / IJN: [id number] / MTDD
[2021-03-09] MEDS: ALPRAZolam 0.25 MG TAB PO PRN ×2 (04:23→16:18)
[2021-03-09 05:12] LABS: Anisocytosis Slight; Basophils % (A) 0 %; Eosinophils % (A) 0 %; HCT 24.6 % (34.0-46.0); HGB 7.4 gm/dL (11.4-16.0); Hypochromasia Slight; Lymphocytes % (A) 13 %; MCH 28.8 pg (25.0-35.0); MCHC 30.2 g/dL (31.0-37.0); MCV 95.5 fL (80.0-100.0); Mean Platelet Volume 7.7; Monocytes # (A) 0.3 k/uL (0-1.0); Monocytes % (A) 4 %; Neutrophils % (A) 81 %; Platelet Count 232 k/uL (150-450); RBC 2.57 m/uL (3.80-5.40); RDW 16.6 % (11.5-15.5); WBC 7.4 k/uL (3.8-10.6)
[2021-03-09 05:23] LABS: INR 4.7 (<1.2); Prothrombin Time 45.1 sec (9.0-12.0)
[2021-03-09 05:34] LABS: Calcium 8.4 mg/dL (8.4-10.2)
[2021-03-09] MEDS: FLUTICASONE 110 MCG INHALER INHALATION SCH ×2 (07:05→19:16)
[2021-03-09] MEDS: IPRATROPIUM-ALBUTEROL 3 ML NEB INHALATION PRN ×2 (07:05→13:02)
[2021-03-09] MEDS ORDERED: FUROSEMIDE 40 MG TAB PO SCH (09:00)
[2021-03-09] MEDS: predniSONE 10 MG TAB PO SCH (09:41)
[2021-03-09] MEDS: PANTOPRAZOLE 40 MG TABLET PO SCH (09:41)
[2021-03-09] MEDS: FUROSEMIDE 10 MG/ML 4 ML VIAL IV SCH ×2 (09:42→20:23)
[2021-03-09] MEDS: FERROUS SULFATE 325 MG TAB PO SCH (09:47)
[2021-03-09] MEDS: SENNOSIDES 8.6 MG TAB PO SCH (09:47)
[2021-03-09] MEDS: SODIUM BICARBONATE TAB 650 MG TAB PO SCH (09:48)
[2021-03-09] MEDS: VIT A,C & E-LUTEIN-MINERALS 1 EACH TAB PO SCH (09:55)
--- NOTE | 2021-03-09 11:48 | P.CNPUL ---
History of Present Illness Consult date: 03/09/21 Requesting physician: Ross Chaudhry Reason for consult: dyspnea, abnormal CXR/CT Chief complaint: Shortness of breath History of present illness: This is an 80-year-old pleasant female patient with past medical history of paroxysmal small atrial fibrillation on Coumadin, COPD on home oxygen at 5 L, squamous cell carcinoma of the lung diagnosed in 2019, history of smoking, history of chronic congestive heart failure, hypertension, hyperlipidemia, osteoarthritis, hypothyroidism, previous history of abdominal aortic aneurysm with endovascular stent grafting. She follows with Dr. Petersen in the outpatient setting. She was recently hospitalized for acute exacerbation of COPD with acute hypoxic respiratory failure, patient also had some diastolic congestive heart failure. Last discharge 02/22/2021. She presented to the emergency room yesterday with complaints of increasing shortness of breath, chest pain. Chest x-ray reveals persistent cardiomegaly with small bilateral pleural effusions. Diffuse interstitial airspace opacities with some confluence relatively stable. Slightly increased right basilar airspace opacity. EKG reveals sinus tachycardia with PACs. Nonspecific ST and T wave abnormalities. White count 7.4. Hemoglobin 7.4. Platelets 232. INR 4.7. Sodium 135. Potassium 4.0. Creatinine 2.85. Troponin 0.05, 0.047. Urinalysis shows no evidence of infection. Coronavirus not detected. She is seen today in the emergency room. She is currently resting fairly comfortably on a stretcher. Awake, alert. No acute distress. Maintaining O2 saturations in the upper 90s on room air. She's afebrile. Hemodynamically stable. She was given ceftriaxone empirically. Remains on DuoNeb inhalations. Review of Systems REVIEW OF SYSTEMS: CONSTITUTIONAL: Denies any recent significant weight loss or weight gain. EYES: Denies change in vision. EARS, NOSE, MOUTH, THROAT: Denies headaches, denies sore throat. CARDIOVASCULAR: Positive for chest pain, palpitations no syncopal episodes. RESPIRATORY: As needed for shortness of breath, cough, congestion no hemoptysis. GASTROINTESTINAL: Denies change in appetite, denies abdominal pain GENITOURINARY: Denies hematuria, denies infections. MUSKULOSKELETAL: Denies pain, denies swelling. INTEGUMENTARY: Denies rash, denies eczema. NEUROLOGICAL: Denies recent memory loss, no recent seizure activity. PSYCHIATRIC: Denies anxiety, denies depression. HEMATOLOGIC/LYMPHATIC: Denies anemia, denies enlarged lymph nodes. Past Medical History Past Medical History: Atrial Fibrillation, Cancer, COPD, Deep Vein Thrombosis (DVT), Eye Disorder, Hyperlipidemia, Hypertension, Osteoarthritis (OA), Pneumonia, Renal Disease, Thyroid Disorder Additional Past Medical History / Comment(s): Pt recently admitted to [facility] on 01/29/21 with exacerbation COPD/tracheobronchitis. Other hx: 2019 diagnosed with R lung cancer and had surgery, pneumonia with sepsis, home oxygen ATC, DVT L arm with surgery, CKD stage III, chronic anemia, diverticular disease, bilateral macular degeneration, bilateral lower leg edema, past gout, valvular disease. History of Any Multi-Drug Resistant Organisms: None Reported Past Surgical History: Tubal Ligation Additional Past Surgical History / Comment(s): L arm thromboembolectomy, endurant abdominal stent graft feb 28 2016, thorascopic R wedge resection, colonoscopy, bilateral cataract removals Past Anesthesia/Blood Transfusion Reactions: Previous Problems w/ Anesthesia, Family History of Problems w/ Anesthesia Additional Past Anesthesia/Blood Transfusion Reaction / Comment(s): Slow to Awaken, patient and daughter. Past Psychological History: No Psychological Hx Reported Smoking Status: Former smoker - Past Family History Father Family Medical History: COPD, Diabetes Mellitus, Myocardial Infarction ([place]) Mother History Unknown: Yes Additional Family Medical History / Comment(s): at age 31 - cause unknown Brother(s) Family Medical History: Respiratory Disorder Additional Family Medical History / Comment(s): states kidney and heart history Sister(s) Family Medical History: Myocardial Infarction ([place]), Renal Disease Additional Family Medical History / Comment(s): dialysis Medications and Allergies Home Medications Medication Instructions Recorded Confirmed Type HYDROcodone/APAP 7.5-325MG [[place] 1 tab PO HS 05/26/16 03/08/21 History 7.5-325] calcitrioL [Rocaltrol] 0.25 mcg PO MOFR 03/27/19 03/08/21 History Vit C/E/Zn/Coppr/Lutein/Zeaxan 1 cap PO DAILY 04/02/19 03/08/21 History [Preservision Areds 2 Softgel] Ferrous Sulfate [Iron (65 MG 325 mg PO DAILY 10/02/20 03/08/21 History Elemental)] Furosemide [Lasix] 40 mg PO MOWEFR 01/27/21 03/08/21 History Warfarin Sodium [Jantoven] 2.5 - 5 mg PO DIRECTED 01/27/21 03/08/21 History ALPRAZolam [Xanax] 0.25 mg PO QID PRN #12 tab 02/08/21 03/08/21 Rx Acetaminophen Tab [Tylenol] 650 mg PO Q6HR PRN tab 02/08/21 03/08/21 Rx Darbepoetin Juaquin [Aranesp] 40 mcg SQ Q7D syringe 02/08/21 03/08/21 Rx Ipratropium-Albuterol Nebulize 3 ml INHALATION QID 30 Days #120 02/08/21 03/08/21 Rx [Duoneb 0.5 mg-3 mg/3 ml Soln] neb Ipratropium-Albuterol Nebulize 3 ml INHALATION RT-QID PRN ml 02/08/21 03/08/21 Rx [Duoneb 0.5 mg-3 mg/3 ml Soln] Sennosides [Senokot] 8.6 mg PO DAILY 30 Days #30 tab 02/08/21 03/08/21 Rx Sodium Bicarbonate Tab 650 mg PO DAILY 30 Days #30 tab 02/08/21 03/08/21 Rx calcium polycarbophiL [Fibercon] 625 mg PO DAILY 30 Days #30 tab 02/08/21 03/08/21 Rx Budesonide [Pulmicort Flexhaler] 2 puff INHALATION RT-BID 02/16/21 03/08/21 History Lactulose [Cephulac] 20 gm PO DAILY PRN 5 Days #150 ml 02/22/21 03/08/21 Rx Pantoprazole [Protonix] 40 mg PO AC-BRKFST #30 tablet. 02/22/21 03/08/21 Rx predniSONE See Taper PO DIRECTED 03/08/21 03/08/21 History Allergies Allergy/AdvReac Type Severity Reaction Status Date / Time No Known Allergies Allergy Verified 03/08/21 13:08 Physical Exam Vitals: Vital Signs Temp Pulse Resp BP Pulse Ox 03/09/21 07:54 98.5 F 98 18 122/64 98 03/09/21 07:18 94 16 03/09/21 07:08 93 16 100 03/09/21 04:14 94 16 121/74 100 03/09/21 00:31 100 18 104/53 98 03/08/21 20:52 93 03/08/21 20:40 103 H 100 03/08/21 18:53 98.4 F 102 H 18 123/75 97 03/08/21 17:21 97.6 F 96 16 123/68 96 03/08/21 15:57 92 18 119/67 100 03/08/21 14:00 97.1 F L 116 H 16 106/60 98 03/08/21 13:47 81 03/08/21 12:54 101 H 18 124/67 96 GENERAL EXAM: Alert, frail, pleasant 81-year-old female, on room air, comfortable in no apparent distress. HEAD: Normocephalic. EYES: Normal reaction of pupils, equal size. NOSE: Clear with pink turbinates. THROAT: No erythema or exudates. NECK: No masses, no JVD. CHEST: No chest wall deformity. LUNGS: Equal air entry with bibasilar crackles. CVS: S1 and S2 normal with no audible murmur, regular rhythm. ABDOMEN: No hepatosplenomegaly, normal bowel sounds, no guarding or rigidity. SPINE: No scoliosis or deformity SKIN: No rashes CENTRAL NERVOUS SYSTEM: No focal deficits, tone is normal in all 4 extremities. EXTREMITIES: There is no peripheral edema. No clubbing, no cyanosis. Peripher al pulses are intact. Results - Laboratory Findings CBC and BMP: 03/09/21 04:43 03/09/21 04:43 PT/INR, D-dimer PT 45.1 sec (9.0-12.0) H 03/09/21 04:43 INR 4.7 (<1.2) H 03/09/21 04:43 Abnormal lab findings: Abnormal Labs 03/08/21 03/08/21 03/08/21 10:03 10:03 10:03 WBC 11.6 H RBC 2.73 L Hgb 8.3 L Hct 25.9 L MCHC RDW 16.2 H Neutrophils # 10.6 H Lymphocytes # 0.7 L PT 37.2 H INR 3.9 H APTT 39.1 H Sodium 134 L Chloride 94 L Carbon Dioxide 37 H BUN 69 H Creatinine 2.76 H Glucose 115 H Creatine Kinase <20 L Troponin I Total Protein 5.4 L Albumin 2.8 L Urine Appearance Urine Protein Urine Bacteria 03/08/21 03/08/21 03/08/21 10:03 13:23 16:05 WBC RBC Hgb Hct MCHC RDW Neutrophils # Lymphocytes # PT INR APTT Sodium Chloride Carbon Dioxide BUN Creatinine Glucose Creatine Kinase Troponin I 0.056 H* 0.050 H* Total Protein Albumin Urine Appearance Cloudy H Urine Protein 1+ H Urine Bacteria Rare H 03/08/21 03/09/21 03/09/21 17:44 04:43 04:43 WBC RBC 2.57 L Hgb 7.4 L Hct 24.6 L MCHC 30.2 L RDW 16.6 H Neutrophils # Lymphocytes # PT 45.1 H INR 4.7 H APTT Sodium Chloride Carbon Dioxide BUN Creatinine Glucose Creatine Kinase Troponin I 0.047 H* Total Protein Albumin Urine Appearance Urine Protein Urine Bacteria 03/09/21 04:43 WBC RBC Hgb Hct MCHC RDW Neutrophils # Lymphocytes # PT INR APTT Sodium 135 L Chloride 92 L Carbon Dioxide 40 H BUN 69 H Creatinine 2.85 H Glucose Creatine Kinase Troponin I Total Protein Albumin Urine Appearance Urine Protein Urine Bacteria Assessment and Plan Assessment: 1 Acute on chronic hypoxic respiratory failure secondary to acute exacerbation of CHF with diastolic dysfunction, doubt underlying pneumonia, rice virus not detected 2 Acute exacerbation of COPD 3 Recent hospitalization for acute exacerbation of CHF, discharged home on 02/22/2021 and previous to that 02/08/2021 4 Stage III COPD, with baseline FEV1 of 54% predicted, on home oxygen 5 History of chronic kidney disease stage III at baseline 6 Acute kidney injury, current creatinine 2.85 7 Chronic anemia, current hemoglobin 7.4 7 History of paroxysmal A. fib, currently in sinus rhythm, on Coumadin, supra therapeutic 8 Previous history of DVT 9 Hypertension 10 Hyperlipidemia 11 Hypothyroidism 12 History of squamous cell carcinoma of the right lung, status post thoracoscopic wedge resection of the right lower lobe on 05/01/2019 Plan: The patient was seen and evaluated by Dr. Petersen Chest x-ray and labs reviewed Continue Lasix 40 mg IV every 12 hours Echocardiogram pending Continue bronchodilators Discharge planning/social work regarding 3 recent admissions We will continue to follow and make further recommendations based on her clinical status I, the cosigning physician, performed a history & physical examination of the patient. Lungs sounds with bibasilar crackles. Maintaining good O2 saturations in the 90s on room air. I discussed the assessment and plan of care with my ryan se practitioner, Renetta Chambers. I attest to the above consultation as dictated by her. Time with Patient: Greater than 30
[2021-03-09] MEDS ORDERED: PHYTONADIONE ORAL 5 MG/5 ML ORAL.SYRG PO STA (12:16)
[2021-03-09 12:38] LABS: Anisocytosis Slight; HCT 23.2 % (34.0-46.0); HGB 7.7 gm/dL (11.4-16.0); Hypochromasia Slight; MCH 31.3 pg (25.0-35.0); MCHC 32.9 g/dL (31.0-37.0); MCV 95.1 fL (80.0-100.0); Mean Platelet Volume 7.8; Platelet Count 240 k/uL (150-450); RBC 2.44 m/uL (3.80-5.40); WBC 12.5 k/uL (3.8-10.6)
--- NOTE | 2021-03-09 13:19 | CONS ---
CONSULTATION ATTENDING DOCTOR: Dr. Petersen. HISTORY OF PRESENT ILLNESS: Mrs. Dixon is an 81-year-old female who presented to the emergency room with symptoms of progressive dyspnea. The patient has been followed by Dr. David in the past. Has history of abdominal aortic repair, history of lung cancer status post lobectomy, who presented with symptoms of progressive dyspnea going on for the last few days. Her symptoms were not associated with any chest discomfort. She has a history of DVT in the past and a history of chronic kidney disease as well as chronic obstructive lung disease. She denies any palpitation. She has no clear anginal symptoms. She has noted some peripheral edema. No clear PND nor orthopnea. She denies any fever at home. CORONARY RISK FACTORS: Her coronary risk factors are remarkable for the history of hypertension. No history of diabetes. Her lipid profile is not available. She has been anticoagulated at home. At home she was on DuoNeb, Coumadin, prednisone, bicarb, Protonix, Lasix 40 mg, Aranesp, Pulmicort. REVIEW OF SYSTEMS: RESPIRATORY system: She had dyspnea on exertion and cough. She has history of obstructive lung disease. GI system: She denies any recent nausea and vomiting. No GI bleeding. system: No dysuria or hematuria. Nervous system: No history of seizure. PHYSICAL EXAMINATION: She is an 81-year-old female, alert, oriented, mildly dyspneic. Blood pressure 122/60 with a heart rate in 90s. HEAD: Normocephalic. Eyes sclerae anicteric. NECK: No bruit. LUNGS with decreased air exchange bilaterally. No wheezes. HEART: Regular rate and rhythm S1, S2. No S3 with a systolic ejection murmur at the base and a holosystolic murmur at the apex 3/6. ABDOMEN: Soft, nontender. Positive bowel sounds no organomegaly. EXTREMITIES with mild edema. The patient had an an echocardiogram performed in September of last year that showed a preserved systolic function and at that time had moderate severe pulmonary hypertension and mild to moderate mitral regurgitation and [id number] aortic sclerosis. The patient has paroxysmal atrial fibrillation. She was in atrial fibrillation at the time of her echocardiogram last time. LAB DATA: Lab data revealed a hemoglobin of 7.4, which is has been on the low side on prior admissions. Her BUN and creatinine 69 and 2.85, which has been noted in the past with a creatinine up to 0.8 in the past. Her troponin 0.05 and 0.047 and they were elevated during her last admission without any significant changes. Her EKG revealed a sinus mechanism, rate of [address]-T wave changes and occasional PACs. Her chest x-ray revealed bilateral pleural effusion. IMPRESSION: 1. Progressive symptoms of dyspnea with a history of chronic obstructive lung disease. The patient has an elevation of her NT proBNP. She may have an element of heart failure with preserved systolic function. 2. Mild troponin elevation most likely related to the renal failure and chronic obstructive pulmonary disease and heart failure. 3. Chronic kidney disease. 4. Paroxysmal atrial fibrillation. 5. History of peripheral vascular disease, status post abdominal aortic aneurysm repair. 6. History of lung cancer status post lobectomy. 7. History of hypertension. RECOMMENDATION: From the cardiac standpoint, I would recommend to hold her anticoagulation today because of her high INR. We will follow her renal function and her hemoglobin. Patient has been given IV Lasix. I will repeat the echocardiogram. Her mitral regurgitation appears to be prominent, although she is not a candidate for aggressive workup. Depending on her progress, further recommendations will be made. Thank you for this consult. We will follow with you. MMODL / IJN: [id number] /
[2021-03-09] MEDS: IPRATROPIUM-ALBUTEROL 3 ML NEB INHALATION SCH ×2 (16:01→19:16)
[2021-03-09] MEDS: SODIUM CHLORIDE 0.9% 1,000 ML IV SCH (16:18)
--- NOTE | 2021-03-09 16:52 | PN ---
PROGRESS NOTE DATE OF SERVICE: 03/09/2021 INTERVAL HISTORY: This 81-year-old woman was admitted with shortness of breath, possibly multifactorial, COPD and CHF acute exacerbations on IV Lasix. The patient is having some significant urine output. She is still having shortness of breath. The patient is also mildly confused. Pneumonia or purulent tracheobronchitis also being suspected at this time. The troponin is found to be elevated at 0.050 which is rather chronic in nature. Sodium is 135, creatinine is 2.85 which is almost the baseline. Hemoglobin is 7.7. PAST MEDICAL HISTORY: Reviewed. REVIEW OF SYSTEMS: CARDIOVASCULAR: No angina. RESPIRATORY: As mentioned earlier. GI: As mentioned earlier. : No dysuria. NERVOUS SYSTEM: No numbness or weakness. CURRENT MEDICATIONS: Tylenol, [place], DuoNeb, Xanax, Rocaltrol, FiberCon, Rocephin, Ancef, iron sulfate, Flovent, Lasix Cephulac, PHYSICAL EXAMINATION: GENERAL: Patient is alert and oriented times three. VITAL SIGNS: Pulse 99, blood pressure 119/67, respirations 18, temperature 98.4, pulse ox 98% on 4 liters. HEENT: Conjunctivae normal. Oral mucosa moist. NECK: No jugular venous distention. No carotid bruits. No lymph node enlargement. RESPIRATORY: Breath sounds diminished at the bases. A few scattered rhonchi and crackles. HEART: S1 and S2, muffled. ABDOMEN: Soft, no tenderness. No masses palpable. EXTREMITIES: No edema, no swelling. NERVOUS: No focal deficits. LAB STUDIES: WBC 12.2, hemoglobin 11.7, INR is 4.7, sodium is 135, creatinine is 2.85. ASSESSMENT: 1. Shortness of breath possibly multifactorial with COPD exacerbation as well as congestive heart failure acute exacerbation acute on chronic diastolic dysfunction ejection fraction 55-60%. 2. Rule out super added pneumonia, acute purulent tracheobronchitis. 3. Increased WBC. 4. Anemia, normocytic. 5. Chronic kidney disease stage 3. 6. Troponin 0.050, rather chronic elevation of undetermined significance. 7. History atrial fibrillation. 8. Chronic obstructive pulmonary disease. 9. History of deep venous thrombosis. 10.Hypertension. 11.Hyperlipidemia. 12.History of degenerative joint disease. 13.History of pneumonia. 14.History of right lung cancer surgery. 15.Right pleural effusion. 16.Remote history of nicotine dependence. RECOMMENDATIONS AND DISCUSSION: I recommend to continue current medications, symptomatic treatment. Continue with Lasix. At this time continue with empiric antibiotics. Closely follow with Pulmonary. Bronchodilators. I would also recommend a short course of IV steroids. Prognosis guarded. Further recommendations to follow. MMODL / IJN: [id number] /
[2021-03-09 17:11] LABS: Glucose,Whole Blood 139 mg/dL (75-99)
[2021-03-09] MEDS: methylPREDNISolone SOD SUCCI 125 MG/2 ML VIAL IV SCH ×2 (17:17→20:23)
[2021-03-09] MEDS: INSULIN ASPART (NovoLOG) 100 UNIT/ML VIAL SQ SCH ×2 (17:19→20:23)
--- NOTE | 2021-03-09 17:49 | ECHOF ---
Referral Reason:chf MEASUREMENTS -------- HEIGHT: 160.0 cm WEIGHT: 64.9 kg BP: IVSd: 1.2 cm (0.6 - 1.1) LVIDd: 4.0 cm (3.9 - 5.3) LVPWd: 1.4 cm (0.6 - 1.1) IVSs: 2.0 cm LVIDs: 1.5 cm LVPWs: 1.6 cm LAESV Index (A-L): 27.93 ml/m Ao Diam: 2.9 cm (2.0 - 3.7) AV Cusp: 1.5 cm (1.5 - 2.6) LA Diam: 4.4 cm (2.7 - 3.8) MV EXCURSION: 16.659 mm (> 18.000) MV EF SLOPE: 88 mm/s (70 - 150) EPSS: 0.8 cm MV E Bruno: 1.47 m/s MV DecT: 202 ms MV A Bruno: 1.22 m/s MV E/A Ratio: 1.21 AV maxP.75 mmHg AV meanP.22 mmHg RAP: 5.00 mmHg RVSP: 21.93 mmHg FINDINGS -------- This was a technically good study. The left ventricular size is normal. There is mild concentric left ventricular hypertrophy. Overa ll left ventricular systolic function is normal with, an EF between 55 - 60 %. Normal LAP Grade 1 D iastolic Dysfunction. The right ventricle is normal in size. The left atrial size is normal. Normal LA size by volume 22+/-6 ml/m2. The right atrial size is normal. Aortic valve is trileaflet and is mildly thickened. There is mild aortic stenosis present. Peak/m violeta gradient across the Aortic Valve is 17.75mmHg / 10.22mmHg. The mitral valve is normal. The mitral valve leaflets are mildly thickened. Mild mitral annular c alcification present. Severe mitral regurgitation is present. The tricuspid valve appears structurally normal. Mild tricuspid regurgitation present. Right vent ricular systolic pressure is normal at < 35 mmHg. Trace/mild (physiologic) pulmonic regurgitation. The aortic root size is normal. Normal inferior vena cava with normal inspiratory collapse consistent with estimated right atrial pre ssure of 5 mmHg. There is no pericardial effusion. CONCLUSIONS -------- 1. The left ventricular size is normal. 2. There is mild concentric left ventricular hypertrophy. 3. Overall left ventricular systolic function is normal with, an EF between 55 - 60 %. 4. Normal LAP Grade 1 Diastolic Dysfunction. 5. Aortic valve is trileaflet and is mildly thickened. 6. There is mild aortic stenosis present. 7. Peak/mean gradient across the Aortic Valve is 17.75mmHg / 10.22mmHg. 8. The mitral valve leaflets are mildly thickened. 9. Mild mitral annular calcification present. 10. Severe mitral regurgitation is present. 11. Mild tricuspid regurgitation present. 12. Trace/mild (physiologic) pulmonic regurgitation. 13. There is no pericardial effusion. [employer]ARD MIXER TENDER: Lynette Hilario RDCS
[2021-03-09] MEDS ORDERED: WARFARIN 0.5 MG TAB PO ONE (18:00)
[2021-03-09 19:55] LABS: Glucose,Whole Blood 193 mg/dL (75-99)
[2021-03-09] MEDS: HYDROcodone/APAP 7.5-325MG 1 EACH TAB PO SCH (20:23)
[2021-03-10] MEDS: methylPREDNISolone SOD SUCCI 125 MG/2 ML VIAL IV SCH ×4 (03:13→20:10)
[2021-03-10] MEDS: ACETAMINOPHEN TAB 325 MG TAB PO PRN (03:23)
[2021-03-10 06:11] LABS: Glucose,Whole Blood 222 mg/dL (75-99)
[2021-03-10] MEDS: INSULIN ASPART (NovoLOG) 100 UNIT/ML VIAL SQ SCH ×4 (06:20→21:09)
[2021-03-10] MEDS: PANTOPRAZOLE 40 MG TABLET PO SCH (06:20)
[2021-03-10] MEDS: IPRATROPIUM-ALBUTEROL 3 ML NEB INHALATION SCH ×4 (07:19→19:48)
[2021-03-10] MEDS: FLUTICASONE 110 MCG INHALER INHALATION SCH ×2 (07:19→19:48)
[2021-03-10 07:45] LABS: Basophils % (A) 0 %; Eosinophils % (A) 0 %; HCT 22.4 % (34.0-46.0); HGB 7.1 gm/dL (11.4-16.0); Hypochromasia Slight; Lymphocytes # (A) 0.8 k/uL (1.0-4.8); Lymphocytes % (A) 13 %; MCHC 31.5 g/dL (31.0-37.0); Mean Platelet Volume 7.9; Monocytes # (A) 0.1 k/uL (0-1.0); Monocytes % (A) 2 %; Neutrophils # (A) 5.6 k/uL (1.3-7.7); Neutrophils % (A) 85 %; Platelet Count 249 k/uL (150-450); RBC 2.36 m/uL (3.80-5.40); RDW 15.7 % (11.5-15.5); WBC 6.7 k/uL (3.8-10.6)
[2021-03-10 07:51] LABS: INR 2.4 (<1.2); Prothrombin Time 23.4 sec (9.0-12.0)
[2021-03-10 08:18] LABS: Calcium 8.4 mg/dL (8.4-10.2)
[2021-03-10] MEDS: FERROUS SULFATE 325 MG TAB PO SCH (08:49)
[2021-03-10] MEDS: FUROSEMIDE 40 MG TAB PO SCH ×2 (08:49→15:00)
[2021-03-10] MEDS: VIT A,C & E-LUTEIN-MINERALS 1 EACH TAB PO SCH (08:49)
[2021-03-10] MEDS: SENNOSIDES 8.6 MG TAB PO SCH (08:49)
[2021-03-10] MEDS: SODIUM BICARBONATE TAB 650 MG TAB PO SCH (08:49)
--- NOTE | 2021-03-10 10:27 | P.PN ---
Subjective HISTORY OF PRESENTING ILLNESS This is a pleasant 81-year-old female past medical history significant for abdominal aortic repair, lung cancer status post lobectomy in 2019, DVT, COPD, paroxysmal atrial fibrillation on coumadin, former nicotine dependence, hypertension, heart failure with preserved ejection fraction. She follows with Dr. David in the past. We have been asked to see in consultation for elevated troponin and congestive heart failure. Patient admitted with progressive dyspnea. Diagnosed with acute exacerbation of COPD with acute hypoxic respiratory failure and also component of congestive heart failure. Patient was diuresed with IV Lasix. Coumadin was held due to supratherapeutic INR 4.7. Pulmonary is following. Echocardiogram 03/09 revealed left ventricular systolic function is normal with an EF between 55-60%, normal a 1 diastolic dysfunction, mild aortic stenosis with a peak/mean gradient 18 mmHg/10 mmHg, severe mitral regurgitation, mild tricuspid regurgitation Patient is seen and examined at bedside, lying in bed, turned toward her left side, no acute distress. States she does have some shortness of breath, no chest pain. She is able to sit up in bed. Has not been out of the bed today yet. Laboratory data reviewed, sodium 135, potassium 4.0, BUN 83, serum creatinine 2.9 (yesterday 2.85), WBC 6.7, hemoglobin 7.1 (yesterday 7.7), INR 2.4 Vital signs blood pressure 117/71, heart rate 80-100, afebrile, oxygen saturation 99% on 3 L nasal cannula. Telemetry reviewed, patient continues to be in sinus mechanism PHYSICAL EXAMINATION CONSTITUTIONAL: No apparent distress. HEENT: No JVD. No carotid bruit. CHEST EXAMINATION: Lungs are essentially clear to auscultation. Decreased air exchange HEART EXAMINATION: Regular rate and rhythm. S1, S2 heard. prominent Systolic ejection murmur at the base and systolic murmur at the apex ABDOMEN: Soft, nontender. Positive bowel sounds. EXTREMITIES: 2+ peripheral pulses, no lower extremity edema and no calf tenderness. NEUROLOGIC EXAMINATION: Patient is awake, alert and oriented x3. ASSESSMENT Acute on chronic hypoxic respiratory failure, most likely combination of acute exacerbation of COPD and congestive heart failure with preserved ejection fraction Mild troponin elevation most likely related to renal failure and COPD Chronic kidney disease Paroxysmal atrial fibrillation, on coumadin at home. Coumadin held due to supratherapeutic INR of 4.7. Mild aortic stenosis Severe Mitral Regurgitation History of peripheral vascular disease status post abdominal aortic aneurysm repair History of lung cancer status post lobectomy in 2019 History of hypertension History of DVT PLAN Will transition to PO Lasix today 40mg BID Check INR tomorrow and restart coumadin pending INR Pulmonary following Further recommendations pending clinical course Nurse Practitioner note has been reviewed, I agree with a documented findings and plan of care. Patient was seen and examined. Objective - Vital Signs Vital signs: Vital Signs Temp 97.7 F 03/10/21 07:53 Pulse 115 H 03/10/21 08:00 Resp 18 03/10/21 08:00 BP 117/71 03/10/21 07:53 Pulse Ox 99 03/10/21 07:53 Intake & Output 03/09/21 03/10/21 03/10/21 18:59 06:59 18:59 Intake Total 240 0 Output Total 1275 Balance -1035 0 Weight 59.2 kg Intake: Oral 240 0 Output: Urine 1275 Other: Voiding Method Indwelling Catheter Indwelling Catheter Indwelling Catheter - Labs CBC & Chem 7: 03/10/21 06:54 03/10/21 06:54 Labs: Abnormal Lab Results - Last 24 Hours (Table) 03/09/21 03/09/21 03/09/21 Range/Units 12:16 12:20 14:04 WBC 12.5 H (3.8-10.6) k/uL RBC 2.44 L (3.80-5.40) m/uL Hgb 7.7 L (11.4-16.0) gm/dL Hct 23.2 L (34.0-46.0) % RDW 16.0 H (11.5-15.5) % Lymphocytes # (1.0-4.8) k/uL PT (9.0-12.0) sec INR (<1.2) Sodium (137-145) mmol/L Chloride (98-107) mmol/L Carbon Dioxide (22-30) mmol/L BUN (7-17) mg/dL Creatinine (0.52-1.04) mg/dL Glucose (74-99) mg/dL POC Glucose (mg/dL) (75-99) mg/dL Troponin I 0.048 H* 0.046 H* (0.000-0.034) ng/mL 03/09/21 03/09/21 03/10/21 Range/Units 17:08 19:54 06:09 WBC (3.8-10.6) k/uL RBC (3.80-5.40) m/uL Hgb (11.4-16.0) gm/dL Hct (34.0-46.0) % RDW (11.5-15.5) % Lymphocytes # (1.0-4.8) k/uL PT (9.0-12.0) sec INR (<1.2) Sodium (137-145) mmol/L Chloride (98-107) mmol/L Carbon Dioxide (22-30) mmol/L BUN (7-17) mg/dL Creatinine (0.52-1.04) mg/dL Glucose (74-99) mg/dL POC Glucose (mg/dL) 139 H 193 H 222 H (75-99) mg/dL Troponin I (0.000-0.034) ng/mL 03/10/21 03/10/21 03/10/21 Range/Units 06:54 06:54 06:54 WBC (3.8-10.6) k/uL RBC 2.36 L (3.80-5.40) m/uL Hgb 7.1 L (11.4-16.0) gm/dL Hct 22.4 L (34.0-46.0) % RDW 15.7 H (11.5-15.5) % Lymphocytes # 0.8 L (1.0-4.8) k/uL PT 23.4 H (9.0-12.0) sec INR 2.4 H (<1.2) Sodium 135 L (137-145) mmol/L Chloride 90 L (98-107) mmol/L Carbon Dioxide 39 H (22-30) mmol/L BUN 83 H (7-17) mg/dL Creatinine 2.99 H (0.52-1.04) mg/dL Glucose 147 H (74-99) mg/dL POC Glucose (mg/dL) (75-99) mg/dL Troponin I (0.000-0.034) ng/mL Microbiology - Last 24 Hours (Table) 03/08/21 10:03 Blood Culture - Preliminary Blood No Growth after 24 hours
[2021-03-10 10:37] VITALS: BMI 23.1
[2021-03-10 12:11] LABS: Glucose,Whole Blood 162 mg/dL (75-99)
--- NOTE | 2021-03-10 13:07 | P.PN ---
Subjective Progress Note Date: 03/10/21 Principal diagnosis: Acute on chronic hypoxic respiratory failure secondary to acute exacerbation of CHF with diastolic dysfunction, doubt underlying pneumonia, rice virus not de tected This is an 80-year-old pleasant female patient with past medical history of paroxysmal small atrial fibrillation on Coumadin, COPD on home oxygen at 5 L, squamous cell carcinoma of the lung diagnosed in 2019, history of smoking, history of chronic congestive heart failure, hypertension, hyperlipidemia, osteoarthritis, hypothyroidism, previous history of abdominal aortic aneurysm with endovascular stent grafting. She follows with Dr. Petersen in the outpatient setting. She was recently hospitalized for acute exacerbation of COPD with acute hypoxic respiratory failure, patient also had some diastolic congestive heart failure. Last discharge 02/22/2021. She presented to the emergency room yesterday with complaints of increasing shortness of breath, chest pain. Chest x-ray reveals persistent cardiomegaly with small bilateral pleural effusions. Diffuse interstitial airspace opacities with some confluence relatively stable. Slightly increased right basilar airspace opacity. EKG reveals sinus tachycardia with PACs. Nonspecific ST and T wave abnormalities. White count 7.4. Hemoglobin 7.4. Platelets 232. INR 4.7. Sodium 135. Potassium 4.0. Creatinine 2.85. Troponin 0.05, 0.047. Urinalysis shows no evidence of infection. Coronavirus not detected. She is seen today in the emergency room. She is currently resting fairly comfortably on a stretcher. Awake, alert. No acute distress. Maintaining O2 saturations in the upper 90s on room air. She's afebrile. Hemodynamically stable. She was given ceftriaxone empirically. Remains on DuoNeb inhalations. On 03/10/2021 patient seen in follow-up on selective care unit, she sits up in a recliner, she still plans of being short of breath, but appears to be in no acute distress, she is on 3 L of oxygen pulse ox is 96-99%, today she is complaining of more back pain, mainly in the coccyx area. No increased cough, no complaints of chest pain, she is afebrile, blood pressures have been stable, she remains on diuretics, currently on oral Lasix 40 mg twice daily, she is in - 1035 ML fluid balance over the last 24 hours. She is on Rocephin for empiric antibiotic coverage, and IV steroids in addition to nebulized bronchodilators. Today's labs have been reviewed, white blood cell count is 6.7, hemoglobin is 7. 1, serum INR today is 2.4, sodium is 135, potassium is 4.0, chloride is 90, CO2 is 29, BUN is 83, creatinine is 2.99. Repeat chest x-ray has been completed, showing persistent cardiomegaly with small bilateral pleural effusions, and slight improvement in the appearance of interstitial airspace opacities. Blood cultures have shown no growth Objective - Vital Signs Vital signs: Vital Signs Temp 97.7 F 03/10/21 12:20 Pulse 92 03/10/21 12:20 Resp 18 03/10/21 12:20 BP 131/65 03/10/21 12:20 Pulse Ox 96 03/10/21 12:20 Intake & Output 03/09/21 03/10/21 03/10/21 18:59 06:59 18:59 Intake Total 240 0 Output Total 1275 Balance -1035 0 Weight 59.2 kg 59.2 kg Intake: Oral 240 0 Output: Urine 1275 Other: Voiding Method Indwelling Catheter Indwelling Catheter Indwelling Catheter - Exam GENERAL EXAM: Alert, frail, 81-year-old white female, on 3 L of oxygen pulse ox of 96%, comfortable in no apparent distress. HEAD: Normocephalic/atraumatic. EYES: Normal reaction of pupils, equal size. Conjunctiva pink, sclera white. NOSE: Clear with pink turbinates. THROAT: No erythema or exudates. NECK: No masses, no JVD, no thyroid enlargement, no adenopathy. CHEST: No chest wall deformity. Symmetrical expansion. LUNGS: Equal air entry with bibasilar crackles, CVS: Regular rate and rhythm, normal S1 and S2, no gallops, no murmurs, no rubs ABDOMEN: Soft, nontender. No hepatosplenomegaly, normal bowel sounds, no guarding or rigidity. EXTREMITIES: No clubbing, no edema, no cyanosis, 2+ pulses and upper and lower extremities. MUSCULOSKELETAL: Muscle strength and tone normal. SPINE: No scoliosis or deformity SKIN: No rashes CENTRAL NERVOUS SYSTEM: Alert and oriented -3. No focal deficits, tone is normal in all 4 extremities. PSYCHIATRIC: Alert and oriented -3. Appropriate affect. Intact judgment and insight. - Labs CBC & Chem 7: 03/10/21 06:54 03/10/21 06:54 Labs: Abnormal Lab Results - Last 24 Hours (Table) 03/09/21 03/09/21 03/09/21 Range/Units 12:16 14:04 17:08 RBC (3.80-5.40) m/uL Hgb (11.4-16.0) gm/dL Hct (34.0-46.0) % RDW (11.5-15.5) % Lymphocytes # (1.0-4.8) k/uL PT (9.0-12.0) sec INR (<1.2) Sodium (137-145) mmol/L Chloride (98-107) mmol/L Carbon Dioxide (22-30) mmol/L BUN (7-17) mg/dL Creatinine (0.52-1.04) mg/dL Glucose (74-99) mg/dL POC Glucose (mg/dL) 139 H (75-99) mg/dL Troponin I 0.048 H* 0.046 H* (0.000-0.034) ng/mL 03/09/21 03/10/21 03/10/21 Range/Units 19:54 06:09 06:54 RBC (3.80-5.40) m/uL Hgb (11.4-16.0) gm/dL Hct (34.0-46.0) % RDW (11.5-15.5) % Lymphocytes # (1.0-4.8) k/uL PT 23.4 H (9.0-12.0) sec INR 2.4 H (<1.2) Sodium (137-145) mmol/L Chloride (98-107) mmol/L Carbon Dioxide (22-30) mmol/L BUN (7-17) mg/dL Creatinine (0.52-1.04) mg/dL Glucose (74-99) mg/dL POC Glucose (mg/dL) 193 H 222 H (75-99) mg/dL Troponin I (0.000-0.034) ng/mL 03/10/21 03/10/21 03/10/21 Range/Units 06:54 06:54 12:07 RBC 2.36 L (3.80-5.40) m/uL Hgb 7.1 L (11.4-16.0) gm/dL Hct 22.4 L (34.0-46.0) % RDW 15.7 H (11.5-15.5) % Lymphocytes # 0.8 L (1.0-4.8) k/uL PT (9.0-12.0) sec INR (<1.2) Sodium 135 L (137-145) mmol/L Chloride 90 L (98-107) mmol/L Carbon Dioxide 39 H (22-30) mmol/L BUN 83 H (7-17) mg/dL Creatinine 2.99 H (0.52-1.04) mg/dL Glucose 147 H (74-99) mg/dL POC Glucose (mg/dL) 162 H (75-99) mg/dL Troponin I (0.000-0.034) ng/mL Microbiology - Last 24 Hours (Table) 03/08/21 10:03 Blood Culture - Preliminary Blood No Growth after 48 hours Assessment and Plan Plan: Assessment: 1 Acute on chronic hypoxic respiratory failure secondary to acute exacerbation of CHF with diastolic dysfunction, doubt underlying pneumonia, rice virus not detected 2 Acute exacerbation of COPD 3 Recent hospitalization for acute exacerbation of CHF, discharged home on 02/22/2021 and previous to that 02/08/2021 4 Stage III COPD, with baseline FEV1 of 54% predicted, on home oxygen 5 History of chronic kidney disease stage III at baseline 6 Acute kidney injury, current creatinine 2.85 7 Chronic anemia, current hemoglobin 7.4 7 History of paroxysmal A. fib, currently in sinus rhythm, on Coumadin, supra therapeutic 8 Previous history of DVT 9 Hypertension 10 Hyperlipidemia 11 Hypothyroidism 12 History of squamous cell carcinoma of the right lung, status post thoracoscopic wedge resection of the right lower lobe on 05/01/2019 Plan: Continue diuretics Chest x-ray reviewed Maintain negative fluid balance Follow-up labs tomorrow Accurate intake and output Continue IV steroids and antibiotics We'll continue to follow I performed a history & physical examination of the patient and discussed their management with my nurse practitioner, Rachele Bradshaw. I reviewed the nurse practitioner's note and agree with the documented findings and plan of care. Lung sounds are positive for diffuse crackles. The findings and the impression was discussed with the patient. I attest to the documentation by the nurse practitioner. Time with Patient: Less than 30
--- NOTE | 2021-03-10 14:44 | XR ---
EXAMINATION TYPE: XR chest 1V portable DATE OF EXAM: 03/10/2021 COMPARISON: 03/08/2021 HISTORY: CHF TECHNIQUE: Single frontal view of the chest is obtained. FINDINGS: Heart size is enlarged. Atherosclerotic aorta. Small right pleural effusion and tiny left p leural effusion with adjacent airspace opacities suggestive of atelectasis or pneumonitis. No pneumot horax. Coarse interstitial markings are likely chronic. These have decreased since prior exam from 03/08/2021 IMPRESSION: 1. Cardiomegaly with small bilateral pleural effusions. Mild bibasilar airspace opacities have decrea sed since prior exam suggestive of atelectasis or pneumonitis. 2. Coarse interstitial markings are likely chronic. Mild superimposed pulmonary edema is not excluded . These have decreased since prior exam.
[2021-03-10] MEDS: SODIUM CHLORIDE 0.9% 1,000 ML IV SCH (15:01)
[2021-03-10 16:04] LABS: HCT 24.7 % (34.0-46.0); HGB 7.8 gm/dL (11.4-16.0); Hypochromasia Moderate; MCH 30.3 pg (25.0-35.0); MCHC 31.4 g/dL (31.0-37.0); MCV 96.3 fL (80.0-100.0); Mean Platelet Volume 8.2; Platelet Count 277 k/uL (150-450); RBC 2.57 m/uL (3.80-5.40); WBC 8.7 k/uL (3.8-10.6)
[2021-03-10 17:24] LABS: Glucose,Whole Blood 157 mg/dL (75-99)
[2021-03-10] MEDS ORDERED: WARFARIN 0.5 MG TAB PO ONE (18:00)
[2021-03-10] MEDS: HYDROcodone/APAP 7.5-325MG 1 EACH TAB PO SCH (20:10)
--- NOTE | 2021-03-10 20:14 | PN ---
PROGRESS NOTE DATE OF SERVICE: 03/10/2021 INTERVAL HISTORY: This 81-year-old woman who was admitted with shortness of breath, possibly multifactorial, COPD exacerbation as well as CHF exacerbation is being closely monitored at this time. No chest pain. No palpitations. Patient is feeling slightly better. The patient is rather confused. The most recent chest x-ray done today was reviewed personally by me and showed some bilateral pleural effusions, some general improvement. No chest pain. No palpitations. No fever. PHYSICAL EXAMINATION: Alert and oriented x2. Pulse is 105, blood pressure 130/70, respiration 18, temperature 98.2, pulse ox 90% on 3 L. HEENT: Conjunctivae normal. Oral mucosa moist. NECK: No jugular venous distention. No lymph node enlargement. CARDIOVASCULAR: S1, S2, muffled. No S3, no S4, RESPIRATORY: Diminished breath sounds at the bases. A few scattered rhonchi. ABDOMEN: Soft, nontender. LEGS: No edema, no swelling. NERVOUS SYSTEM: No focal deficits. LABS: WBC 8.2, hemoglobin 7.8, sodium 135, creatinine is 2.99. ASSESSMENT: 1. Shortness of breath, possibly multifactorial with COPD acute exacerbation as well as CHF exacerbation acute on chronic with diastolic dysfunction, ejection fraction 55- 60%. 2. Rule out super added pneumonia, acute purulent tracheobronchitis. 3. Increased WBC. 4. Anemia, normocytic. 5. Chronic kidney disease, Stage 3. 6. Troponin 0.05, chronic elevation of undetermined significance. 7. History atrial fibrillation. 8. History of COPD. 9. History of deep vein thrombosis. 10.Hypertension. 11.Hyperlipidemia. 12.History of DJD. 13.History of pneumonia. 14.History of right lung cancer surgery. 15.Right pleural effusion. 16.Remote history of nicotine dependence. 17.No code no CPR, NO VENT. RECOMMENDATIONS AND DISCUSSION: Recommend to continue current management and symptomatic treatment. Otherwise, at this time I would follow the patient closely with Pulmonology as well as Cardiology. The patient is on broad-spectrum IV steroids and empiric antibiotics. Prognosis guarded because of multiple complex medical issues. Further recommendations to follow. MMODL / IJN: [id number] /
[2021-03-10] MEDS: ALPRAZolam 0.25 MG TAB PO PRN (20:28)
[2021-03-10 21:08] LABS: Glucose,Whole Blood 192 mg/dL (75-99)
[2021-03-11] MEDS: methylPREDNISolone SOD SUCCI 125 MG/2 ML VIAL IV SCH ×2 (02:53→08:53)
[2021-03-11 06:17] LABS: Glucose,Whole Blood 186 mg/dL (75-99)
[2021-03-11] MEDS: INSULIN ASPART (NovoLOG) 100 UNIT/ML VIAL SQ SCH ×4 (06:19→20:01)
[2021-03-11] MEDS: PANTOPRAZOLE 40 MG TABLET PO SCH (06:19)
[2021-03-11] MEDS: IPRATROPIUM-ALBUTEROL 3 ML NEB INHALATION SCH ×4 (07:35→21:29)
[2021-03-11] MEDS: FLUTICASONE 110 MCG INHALER INHALATION SCH ×2 (07:35→21:30)
[2021-03-11] MEDS: SENNOSIDES 8.6 MG TAB PO SCH (08:54)
[2021-03-11] MEDS: VIT A,C & E-LUTEIN-MINERALS 1 EACH TAB PO SCH (08:54)
[2021-03-11] MEDS: FERROUS SULFATE 325 MG TAB PO SCH (08:54)
[2021-03-11] MEDS: SODIUM BICARBONATE TAB 650 MG TAB PO SCH (08:54)
[2021-03-11] MEDS: FUROSEMIDE 40 MG TAB PO SCH (08:54)
[2021-03-11] MEDS: ALPRAZolam 0.25 MG TAB PO PRN ×2 (08:59→19:59)
[2021-03-11 10:38] LABS: HCT 23.7 % (34.0-46.0); HGB 7.5 gm/dL (11.4-16.0); Hypochromasia Moderate; MCH 30.6 pg (25.0-35.0); MCHC 31.7 g/dL (31.0-37.0); MCV 96.6 fL (80.0-100.0); Platelet Count 316 k/uL (150-450); RBC 2.45 m/uL (3.80-5.40); RDW 15.9 % (11.5-15.5); WBC 14.5 k/uL (3.8-10.6)
[2021-03-11 10:58] LABS: INR 2.8 (<1.2); Prothrombin Time 26.9 sec (9.0-12.0)
[2021-03-11 11:00] LABS: Calcium 8.5 mg/dL (8.4-10.2); Potassium 3.6 mmol/L (3.5-5.1)
[2021-03-11 11:36] LABS: Glucose,Whole Blood 259 mg/dL (75-99)
--- NOTE | 2021-03-11 11:53 | P.PN ---
Subjective Progress Note Date: 03/11/21 Principal diagnosis: Acute on chronic hypoxic respiratory failure secondary to acute exacerbation of CHF with diastolic dysfunction, doubt underlying pneumonia, rice virus not de tected This is an 80-year-old pleasant female patient with past medical history of paroxysmal small atrial fibrillation on Coumadin, COPD on home oxygen at 5 L, squamous cell carcinoma of the lung diagnosed in 2019, history of smoking, history of chronic congestive heart failure, hypertension, hyperlipidemia, osteoarthritis, hypothyroidism, previous history of abdominal aortic aneurysm with endovascular stent grafting. She follows with Dr. Petersen in the outpatient setting. She was recently hospitalized for acute exacerbation of COPD with acute hypoxic respiratory failure, patient also had some diastolic congestive heart failure. Last discharge 02/22/2021. She presented to the emergency room yesterday with complaints of increasing shortness of breath, chest pain. Chest x-ray reveals persistent cardiomegaly with small bilateral pleural effusions. Diffuse interstitial airspace opacities with some confluence relatively stable. Slightly increased right basilar airspace opacity. EKG reveals sinus tachycardia with PACs. Nonspecific ST and T wave abnormalities. White count 7.4. Hemoglobin 7.4. Platelets 232. INR 4.7. Sodium 135. Potassium 4.0. Creatinine 2.85. Troponin 0.05, 0.047. Urinalysis shows no evidence of infection. Coronavirus not detected. She is seen today in the emergency room. She is currently resting fairly comfortably on a stretcher. Awake, alert. No acute distress. Maintaining O2 saturations in the upper 90s on room air. She's afebrile. Hemodynamically stable. She was given ceftriaxone empirically. Remains on DuoNeb inhalations. On 03/10/2021 patient seen in follow-up on selective care unit, she sits up in a recliner, she still plans of being short of breath, but appears to be in no acute distress, she is on 3 L of oxygen pulse ox is 96-99%, today she is complaining of more back pain, mainly in the coccyx area. No increased cough, no complaints of chest pain, she is afebrile, blood pressures have been stable, she remains on diuretics, currently on oral Lasix 40 mg twice daily, she is in - 1035 ML fluid balance over the last 24 hours. She is on Rocephin for empiric antibiotic coverage, and IV steroids in addition to nebulized bronchodilators. Today's labs have been reviewed, white blood cell count is 6.7, hemoglobin is 7. 1, serum INR today is 2.4, sodium is 135, potassium is 4.0, chloride is 90, CO2 is 29, BUN is 83, creatinine is 2.99. Repeat chest x-ray has been completed, showing persistent cardiomegaly with small bilateral pleural effusions, and slight improvement in the appearance of interstitial airspace opacities. Blood cultures have shown no growth On 03/11/2021 patient seen in follow-up on selective care unit, she is up in the recliner today, appears to be in no acute distress, just appears to be weak and fatigued, a bit pale. No evidence of any respiratory distress. She is currently on 3 L of oxygen pulse ox is 97%, no fever or chills, blood pressure is been stable, she continues on oral Lasix 40 mg twice daily, her weight is down by 0.6 kg in the last 24 hours, her chest x-ray shows cardiomegaly with small bilateral pleural effusions, mild bibasilar airspace opacities that have decreased from prior exam, there is coarse interstitial markings that are chronic, and mild superimposed pulmonary edema, which has improved from prior exam. Objective - Vital Signs Vital signs: Vital Signs Temp 98.4 F 03/11/21 03:12 Pulse 90 03/11/21 07:45 Resp 16 03/11/21 03:12 BP 120/59 03/11/21 03:12 Pulse Ox 97 03/11/21 03:12 Intake & Output 03/10/21 03/11/21 03/11/21 18:59 06:59 18:59 Intake Total 240 358 Output Total 100 325 Balance 140 33 Weight 59.2 kg 58.6 kg Intake: Oral 240 358 Output: Urine 100 325 Other: Voiding Method Toilet Bedside Commode # Voids 1 1 1 # Bowel Movements 1 1 - Exam GENERAL EXAM: Weak, frail, fatigued-looking 81-year-old white female, on 3 L of oxygen pulse ox of 96%, sitting up in the recliner comfortable in no apparent distress. HEAD: Normocephalic/atraumatic. EYES: Normal reaction of pupils, equal size. Conjunctiva pink, sclera white. NOSE: Clear with pink turbinates. THROAT: No erythema or exudates. NECK: No masses, no JVD, no thyroid enlargement, no adenopathy. CHEST: No chest wall deformity. Symmetrical expansion. LUNGS: Equal air entry with bibasilar crackles, CVS: Regular rate and rhythm, normal S1 and S2, no gallops, no murmurs, no rubs ABDOMEN: Soft, nontender. No hepatosplenomegaly, normal bowel sounds, no guarding or rigidity. EXTREMITIES: No clubbing, no edema, no cyanosis, 2+ pulses and upper and lower extremities. MUSCULOSKELETAL: Muscle strength and tone normal. SPINE: No scoliosis or deformity SKIN: No rashes CENTRAL NERVOUS SYSTEM: Alert and oriented -3. No focal deficits, tone is normal in all 4 extremities. PSYCHIATRIC: Alert and oriented -3. Appropriate affect. Intact judgment and insight. - Labs CBC & Chem 7: 03/11/21 09:33 03/11/21 09:33 Labs: Abnormal Lab Results - Last 24 Hours (Table) 03/10/21 03/10/21 03/10/21 Range/Units 12:07 14:18 14:18 WBC (3.8-10.6) k/uL RBC 2.57 L (3.80-5.40) m/uL Hgb 7.8 L (11.4-16.0) gm/dL Hct 24.7 L (34.0-46.0) % RDW 16.0 H (11.5-15.5) % PT (9.0-12.0) sec INR (<1.2) Chloride (98-107) mmol/L Carbon Dioxide (22-30) mmol/L BUN (7-17) mg/dL Creatinine (0.52-1.04) mg/dL Glucose (74-99) mg/dL POC Glucose (mg/dL) 162 H (75-99) mg/dL Procalcitonin 0.52 H (0.02-0.09) ng/mL 03/10/21 03/10/21 03/11/21 Range/Units 17:23 21:07 06:15 WBC (3.8-10.6) k/uL RBC (3.80-5.40) m/uL Hgb (11.4-16.0) gm/dL Hct (34.0-46.0) % RDW (11.5-15.5) % PT (9.0-12.0) sec INR (<1.2) Chloride (98-107) mmol/L Carbon Dioxide (22-30) mmol/L BUN (7-17) mg/dL Creatinine (0.52-1.04) mg/dL Glucose (74-99) mg/dL POC Glucose (mg/dL) 157 H 192 H 186 H (75-99) mg/dL Procalcitonin (0.02-0.09) ng/mL 03/11/21 03/11/21 03/11/21 Range/Units 09:33 09:33 09:33 WBC 14.5 H (3.8-10.6) k/uL RBC 2.45 L (3.80-5.40) m/uL Hgb 7.5 L (11.4-16.0) gm/dL Hct 23.7 L (34.0-46.0) % RDW 15.9 H (11.5-15.5) % PT 26.9 H (9.0-12.0) sec INR 2.8 H (<1.2) Chloride 89 L (98-107) mmol/L Carbon Dioxide 38 H (22-30) mmol/L BUN 97 H (7-17) mg/dL Creatinine 2.92 H (0.52-1.04) mg/dL Glucose 153 H (74-99) mg/dL POC Glucose (mg/dL) (75-99) mg/dL Procalcitonin (0.02-0.09) ng/mL 03/11/21 Range/Units 11:31 WBC (3.8-10.6) k/uL RBC (3.80-5.40) m/uL Hgb (11.4-16.0) gm/dL Hct (34.0-46.0) % RDW (11.5-15.5) % PT (9.0-12.0) sec INR (<1.2) Chloride (98-107) mmol/L Carbon Dioxide (22-30) mmol/L BUN (7-17) mg/dL Creatinine (0.52-1.04) mg/dL Glucose (74-99) mg/dL POC Glucose (mg/dL) 259 H (75-99) mg/dL Procalcitonin (0.02-0.09) ng/mL Microbiology - Last 24 Hours (Table) 03/08/21 10:03 Blood Culture - Preliminary Blood No Growth after 48 hours Assessment and Plan Plan: Assessment: 1 Acute on chronic hypoxic respiratory failure secondary to acute exacerbation of CHF with diastolic dysfunction, doubt underlying pneumonia, rice virus not detected 2 Acute exacerbation of COPD 3 Recent hospitalization for acute exacerbation of CHF, discharged home on 02/22/2021 and previous to that 02/08/2021 4 Stage III COPD, with baseline FEV1 of 54% predicted, on home oxygen 5 History of chronic kidney disease stage III at baseline 6 Acute kidney injury, current creatinine 2.85 7 Chronic anemia, current hemoglobin 7.4 7 History of paroxysmal A. fib, currently in sinus rhythm, on Coumadin, supra therapeutic 8 Previous history of DVT 9 Hypertension 10 Hyperlipidemia 11 Hypothyroidism 12 History of squamous cell carcinoma of the right lung, status post thoracoscopic wedge resection of the right lower lobe on 05/01/2019 Plan: Continue diuretics Chest x-ray reviewed, showing improvement in aeration Maintain negative fluid balance We can stop the IV steroids Continue antibiotics Patient will likely need placement in the subacute care facility in view of her generalized medical debility, underlying chronic medical problems with frequent readmissions and frequent exacerbations. Physical therapy to evaluate and make a recommendation We'll continue to follow I performed a history & physical examination of the patient and discussed their management with my nurse practitioner, Rachele Bradshaw. I reviewed the nurse practitioner's note and agree with the documented findings and plan of care. Lung sounds are positive for diffuse crackles. The findings and the impression was discussed with the patient. I attest to the documentation by the nurse practitioner. Time with Patient: Less than 30
--- NOTE | 2021-03-11 12:31 | P.PN ---
Subjective HISTORY OF PRESENTING ILLNESS This is a pleasant 81-year-old female past medical history significant for abdominal aortic repair, lung cancer status post lobectomy in 2019, DVT, COPD, paroxysmal atrial fibrillation on coumadin, former nicotine dependence, hypertension, heart failure with preserved ejection fraction. She follows with Dr. David in the past. We have been asked to see in consultation for elevated troponin and congestive heart failure. Patient admitted with progressive dyspnea. Diagnosed with acute exacerbation of COPD with acute hypoxic respiratory failure and also component of congestive heart failure. Patient was diuresed with IV Lasix. Coumadin was held due to supratherapeutic INR 4.7. Echocardiogram 03/09 revealed left ventricular systolic function is normal with an EF between 55-60%, normal grade 1 diastolic dysfunction, mild aortic stenosis with a peak/mean gradient 18 mmHg/10 mmHg, severe mitral regurgitation, mild t ricuspid regurgitation 03/11/2021 Patient is seen and examined at bedside, She is sitting up at the edge of the bed, eating breakfast. She is pleasantly confused. She appears comfortable, She denies shortness of breath, no chest pain. Laboratory data reviewed, WBC 14.5, hemoglobin 7.5, Plt 316. INR 2.8 today, Sodium 137, K 3.6, sCr 2.92, BUN 97. Vital signs blood pressure 120/59, heart rate trends 80-120, afebrile, oxygen saturation 97% on 3 L nasal cannula. Telemetry reviewed, is in sinus mechanism, appears to be having episodes of atrial fibrillation, Currently in sinus mechanism ventricular rates controlled. Patient with 1.2L output from PHYSICAL EXAMINATION CONSTITUTIONAL: No apparent distress. HEENT: No JVD. No carotid bruit. CHEST EXAMINATION: Lungs are essentially clear to auscultation. Decreased air exchange HEART EXAMINATION: Regular rate and rhythm. S1, S2 heard. prominent Systolic ejection murmur at the base and systolic murmur at the apex ABDOMEN: Soft, nontender. Positive bowel sounds. EXTREMITIES: 2+ peripheral pulses, no lower extremity edema and no calf tendern ess. NEUROLOGIC EXAMINATION: Patient is awake, alert and oriented x3. ASSESSMENT Acute on chronic hypoxic respiratory failure, most likely combination of acute exacerbation of COPD and congestive heart failure with preserved ejection fraction Mild troponin elevation most likely related to renal failure and COPD Chronic kidney disease Paroxysmal atrial fibrillation, on coumadin at home. Coumadin held due to supratherapeutic INR of 4.7. INR now therapeutic 2.8 Today Mild aortic stenosis Severe Mitral Regurgitation History of peripheral vascular disease status post abdominal aortic aneurysm repair History of lung cancer status post lobectomy in 2019 History of hypertension. ACEI/ARB held due to kidney function History of DVT PLAN Will continue current medical therapy with Lasix 40mg daily and will restart coumadin. Pulmonary following. Further recommendations pending clinical course Nurse Practitioner note has been reviewed, I agree with a documented findings and plan of care. Patient was seen and examined. Objective - Vital Signs Vital signs: Vital Signs Temp 98.4 F 03/11/21 03:12 Pulse 90 03/11/21 07:45 Resp 16 03/11/21 03:12 BP 120/59 03/11/21 03:12 Pulse Ox 97 03/11/21 03:12 Intake & Output 03/10/21 03/11/21 03/11/21 18:59 06:59 18:59 Intake Total 240 358 Output Total 100 325 Balance 140 33 Weight 59.2 kg 58.6 kg Intake: Oral 240 358 Output: Urine 100 325 Other: Voiding Method Toilet Bedside Commode # Voids 1 1 1 # Bowel Movements 1 1 - Labs CBC & Chem 7: 03/11/21 09:33 03/11/21 09:33 Labs: Abnormal Lab Results - Last 24 Hours (Table) 03/10/21 03/10/21 03/10/21 Range/Units 12:07 14:18 14:18 RBC 2.57 L (3.80-5.40) m/uL Hgb 7.8 L (11.4-16.0) gm/dL Hct 24.7 L (34.0-46.0) % RDW 16.0 H (11.5-15.5) % POC Glucose (mg/dL) 162 H (75-99) mg/dL Procalcitonin 0.52 H (0.02-0.09) ng/mL 03/10/21 03/10/21 03/11/21 Range/Units 17:23 21:07 06:15 RBC (3.80-5.40) m/uL Hgb (11.4-16.0) gm/dL Hct (34.0-46.0) % RDW (11.5-15.5) % POC Glucose (mg/dL) 157 H 192 H 186 H (75-99) mg/dL Procalcitonin (0.02-0.09) ng/mL Microbiology - Last 24 Hours (Table) 03/08/21 10:03 Blood Culture - Preliminary Blood No Growth after 48 hours
[2021-03-11 16:35] LABS: Glucose,Whole Blood 240 mg/dL (75-99)
[2021-03-11] MEDS ORDERED: WARFARIN 1 MG TAB PO ONE (18:00)
[2021-03-11] MEDS: SODIUM CHLORIDE 0.9% 1,000 ML IV SCH (18:12)
--- NOTE | 2021-03-11 18:32 | PN ---
PROGRESS NOTE DATE OF SERVICE: 03/11/2021 This 81-year-old woman who was admitted with shortness of breath possibly multifactorial, congestive heart failure and COPD is being closely monitored. No chest pain. No palpitations. No fever. The patient is slightly more comfortable. Patient is on p.o. Lasix at this time. PHYSICAL EXAMINATION: Alert and oriented x3. Pulse is 114. Blood pressure 112/60, respirations 16, temperature 98.2, pulse ox 98% on 3 L. HEENT: Conjunctivae normal. Oral mucosa moist. NECK is no jugular venous distention. No carotid bruit. No lymph node enlargement. CARDIOVASCULAR system: S1, S2 regular rate and rhythm. RESPIRATION: A few scattered rhonchi. ABDOMEN: Soft. Nervous System: No focal deficits. LAB STUDIES: WBC 14.2, hemoglobin 7.6, sodium 137, potassium 3.9, INR is 2.8, glucose 259. ASSESSMENT: 1. Shortness of breath possibly multifactorial with chronic obstructive pulmonary disease acute exacerbation as well as congestive heart failure acute exacerbation, acute on chronic diastolic dysfunction, ejection fraction 55-60 percent. 2. Possible acute purulent tracheobronchitis. 3. Increased WBC. 4. Anemia, normocytic. 5. Chronic kidney stage 3. 6. Troponin 0.05, chronic elevation of undetermined significance. 7. History of atrial fibrillation. 8. History of chronic obstructive pulmonary disease. 9. History of deep vein thrombosis. 10.Hypertension. 11.Hyperlipidemia. 12.History of degenerative joint disease. 13.History of pneumonia. 14.History of right lung cancer surgery. 15.Right pleural effusion. 16.Remote history of nicotine dependence. 17.NO CODE, NO CPR, NO VENT. RECOMMENDATIONS AND DISCUSSION: In this 81-year-old woman who presented with multiple complex medical issues, we will monitor the patient closely. Continue the current medications, management and symptomatic treatment. Otherwise, at this time, I recommend monitor fluid/electrolyte balance. Continue with the Lasix. Closely follow with pulmonology. Guarded prognosis. Further recommendations to follow. MMODL / IJN: [id number] /
[2021-03-11] MEDS: HYDROcodone/APAP 7.5-325MG 1 EACH TAB PO SCH (19:59)
[2021-03-11 20:01] LABS: Glucose,Whole Blood 193 mg/dL (75-99)
[2021-03-12] MEDS: INSULIN ASPART (NovoLOG) 100 UNIT/ML VIAL SQ SCH ×4 (06:01→20:00)
[2021-03-12] MEDS: PANTOPRAZOLE 40 MG TABLET PO SCH (06:04)
[2021-03-12] MEDS: ALPRAZolam 0.25 MG TAB PO PRN ×2 (06:04→20:00)
[2021-03-12 06:15] LABS: Glucose,Whole Blood 120 mg/dL (75-99)
[2021-03-12] MEDS: FLUTICASONE 110 MCG INHALER INHALATION SCH ×2 (07:10→20:08)
[2021-03-12] MEDS: IPRATROPIUM-ALBUTEROL 3 ML NEB INHALATION SCH ×4 (07:10→20:08)
[2021-03-12] MEDS: FUROSEMIDE 40 MG TAB PO SCH (08:04)
[2021-03-12] MEDS: SENNOSIDES 8.6 MG TAB PO SCH (08:04)
[2021-03-12] MEDS: FERROUS SULFATE 325 MG TAB PO SCH (08:04)
[2021-03-12] MEDS: SODIUM BICARBONATE TAB 650 MG TAB PO SCH (08:04)
[2021-03-12] MEDS: VIT A,C & E-LUTEIN-MINERALS 1 EACH TAB PO SCH (08:04)
[2021-03-12 10:04] LABS: INR 3.5 (<1.2); Prothrombin Time 33.3 sec (9.0-12.0)
[2021-03-12 10:09] LABS: Calcium 8.6 mg/dL (8.4-10.2); Potassium 3.4 mmol/L (3.5-5.1)
[2021-03-12 11:49] LABS: Glucose,Whole Blood 201 mg/dL (75-99)
--- NOTE | 2021-03-12 12:13 | PN ---
PROGRESS NOTE Mrs. Dixon is an 81-year-old female who presented with symptoms of progressive dyspnea and peripheral edema. She is feeling better today. She is only complaining of discomfort in the lower back in the coccyx area. She denies any chest discomfort. She denies any dizziness. She denies any nausea. Hemodynamically, she is stable. She has no evidence of significant arrhythmia. She continues to be on ceftriaxone, iron, Lasix 40 mg orally once a day, Coumadin. PHYSICAL EXAMINATION: VITAL SIGNS: Blood pressure 120/50 with a heart rate in the 80s. LUNGS: Clear. HEART: Regular rate and rhythm S1, S2. No S3 with systolic murmur. No diastolic murmur. No rub. ABDOMEN: Soft and nontender. EXTREMITIES: No edema. LAB DATA: BUN and creatinine of 97 and 2.92, which is somewhat similar to yesterday. Her INR is 2.8, hemoglobin of 7.5. IMPRESSION: 1. Progressive dyspnea with a combination of diastolic dysfunction heart failure and probable exacerbation of chronic obstructive pulmonary disease. 2. Paroxysmal atrial fibrillation. 3. Chronic kidney disease. 4. History of mitral regurgitation. 5. Peripheral vascular disease, status post abdominal aortic aneurysm repair. 6. History of lung cancer status post lobectomy. RECOMMENDATION: We will continue on the present medical therapy. Increase her level of activity. I would expect she should be able to be discharged home soon and follow as an outpatient. MMDOROTEOL / MALAN: [id number] /
[2021-03-12 16:37] LABS: Glucose,Whole Blood 98 mg/dL (75-99)
[2021-03-12] MEDS: SODIUM CHLORIDE 0.9% 1,000 ML IV SCH (16:45)
[2021-03-12 17:16] LABS: Basophils % (A) 0 %; Eosinophils % (A) 0 %; HCT 22.8 % (34.0-46.0); HGB 7.2 gm/dL (11.4-16.0); Hypochromasia Marked; Lymphocytes # (A) 0.9 k/uL (1.0-4.8); Lymphocytes % (A) 9 %; MCH 30.6 pg (25.0-35.0); MCHC 31.6 g/dL (31.0-37.0); MCV 96.8 fL (80.0-100.0); Mean Platelet Volume 9.4; Monocytes # (A) 0.6 k/uL (0-1.0); Monocytes % (A) 7 %; Neutrophils % (A) 83 %; Platelet Count 295 k/uL (150-450); RBC 2.35 m/uL (3.80-5.40); RDW 15.9 % (11.5-15.5); WBC 9.7 k/uL (3.8-10.6)
--- NOTE | 2021-03-12 17:26 | PN ---
PROGRESS NOTE DATE OF SERVICE: 03/12/2021 This 81-year-old woman who was admitted with shortness of breath, possibly multifactorial, is being closely monitored. Patient has significant gait dysfunction and generalized weakness also. No chest pain. No palpitations. No fever. PHYSICAL EXAMINATION: Alert and oriented x3. Pulse 86, blood pressure 115/58 respiration 20, temperature 97.2, pulse ox 98% on 4 L. HEENT: Conjunctivae normal. Oral mucosa moist. NECK: No jugular venous distention. No lymph node enlargement. CARDIOVASCULAR: S1, S2, muffled. No S3, no S4, RESPIRATORY: Diminished breath sounds at the bases. A few scattered rhonchi. ABDOMEN: Soft, nontender. LEGS: No edema, no swelling. NERVOUS SYSTEM: No focal deficits. LABS: Creatinine 2.9, sodium 130, potassium 3.4, hemoglobin 7.5. ASSESSMENT: 1. Shortness of shortness of breath, possibly multifactorial with COPD exacerbation as well as congestive heart failure acute exacerbation with acute on chronic diastolic dysfunction, ejection fraction 55-60%. 2. Possible acute purulent tracheobronchitis. 3. Increased WBC. 4. Anemia, normocytic. 5. Chronic kidney disease, stage 3. 6. Troponin 0.05, chronic elevation of undetermined significance. 7. History atrial fibrillation. 8. History of chronic obstructive pulmonary disease. 9. History of deep vein thrombosis. 10.Hypertension. 11.Hyperlipidemia. 12.History of degenerative joint disease. 13.History of pneumonia. 14.History of right lung cancer surgery. 15.Right pleural effusion. 16.History of nicotine dependence. 17.NO CODE, NO CPR, NO VENT. RECOMMENDATIONS AND DISCUSSION: I recommend to continue current management and symptomatic treatment. Will monitor the patient closely. Otherwise, potassium supplementation, we will use the protocol. Otherwise, repeat labs. Guarded prognosis because of multiple complex medical issues. I would also recommend the patient closely with Cardiology: Discussed with daughter at the bedside. Currently patient is NO CODE. Further recommendations to follow. MMODL / IJN: [id number] /
[2021-03-12] MEDS ORDERED: WARFARIN 0.5 MG TAB PO ONE (18:00)
[2021-03-12 20:00] LABS: Glucose,Whole Blood 200 mg/dL (75-99)
[2021-03-12] MEDS: HYDROcodone/APAP 7.5-325MG 1 EACH TAB PO SCH (20:00)
[2021-03-12 23:43] LABS: % Iron Saturation 24.55 (12.00-45.00); Ferritin 845.2 ng/mL (10.0-291.0)
[2021-03-13] MEDS: IPRATROPIUM-ALBUTEROL 3 ML NEB INHALATION PRN (02:40)
[2021-03-13 06:02] LABS: Glucose,Whole Blood 116 mg/dL (75-99)
[2021-03-13] MEDS: PANTOPRAZOLE 40 MG TABLET PO SCH (06:07)
[2021-03-13] MEDS: INSULIN ASPART (NovoLOG) 100 UNIT/ML VIAL SQ SCH ×4 (06:07→20:29)
[2021-03-13] MEDS: ALPRAZolam 0.25 MG TAB PO PRN (06:07)
[2021-03-13] MEDS: FLUTICASONE 110 MCG INHALER INHALATION SCH ×2 (07:13→20:15)
[2021-03-13] MEDS: IPRATROPIUM-ALBUTEROL 3 ML NEB INHALATION SCH ×4 (07:13→20:15)
[2021-03-13] MEDS: SODIUM BICARBONATE TAB 650 MG TAB PO SCH (08:31)
[2021-03-13] MEDS: FUROSEMIDE 40 MG TAB PO SCH (08:32)
[2021-03-13] MEDS: FERROUS SULFATE 325 MG TAB PO SCH (08:32)
[2021-03-13] MEDS: SENNOSIDES 8.6 MG TAB PO SCH (08:32)
[2021-03-13] MEDS: ACETAMINOPHEN TAB 325 MG TAB PO PRN (08:34)
[2021-03-13 08:49] LABS: Basophils % (A) 0 %; Eosinophils % (A) 0 %; HCT 25.7 % (34.0-46.0); HGB 8.2 gm/dL (11.4-16.0); Hypochromasia Moderate; Lymphocytes % (A) 10 %; MCH 30.7 pg (25.0-35.0); MCV 96.1 fL (80.0-100.0); Mean Platelet Volume 8.2; Monocytes # (A) 0.5 k/uL (0-1.0); Monocytes % (A) 5 %; Neutrophils # (A) 8.5 k/uL (1.3-7.7); Neutrophils % (A) 84 %; Platelet Count 347 k/uL (150-450); RBC 2.68 m/uL (3.80-5.40); RDW 15.8 % (11.5-15.5); WBC 10.1 k/uL (3.8-10.6)
[2021-03-13] MEDS ORDERED: HYDROcodone/APAP 5-325MG 1 EACH TAB PO STA (08:53)
[2021-03-13] MEDS: traMADol 50 MG TAB PO SCH ×2 (08:54→16:06)
[2021-03-13 08:59] LABS: INR 3.1 (<1.2); Prothrombin Time 29.8 sec (9.0-12.0)
[2021-03-13 09:10] LABS: Calcium 8.8 mg/dL (8.4-10.2); Potassium 3.6 mmol/L (3.5-5.1)
--- NOTE | 2021-03-13 09:53 | XR ---
Lumbar spine. HISTORY: Back pain. COMPARISON: None. TECHNIQUE: 4 views lumbar spine were obtained. FINDINGS: There is an aortic stent graft. The lumbar vertebral segments are normal in height. There is a mild retrolisthesis of L3 on L4. There is mild disc space narrowing throughout the lumbar region with mild spondylosis indicating mild degenerative disc disease. There is mild facet degeneration at the L5-S1 level. IMPRESSION: Mild retrolisthesis of L3 on L4 and mild degenerative disc disease throughout the lumbar region. The osseous structures are diffusely osteopenic but there is no evidence of compression fracture
--- NOTE | 2021-03-13 09:54 | XR ---
Sacrum and coccyx. HISTORY: Pain. COMPARISON: None. TECHNIQUE: 4 views the sacrum and coccyx were obtained. FINDINGS: Exam is mildly limited by an aortic stent graft overlying the upper portion of the sacrum. The osseous structures are diffusely osteopenic but there is no evidence of sacral fracture or fractu re of the coccyx. IMPRESSION: Diffuse osteopenia with no other significant abnormality seen.
[2021-03-13] MEDS: SODIUM CHLORIDE 0.9% 1,000 ML IV SCH (10:00)
[2021-03-13] MEDS: VIT A,C & E-LUTEIN-MINERALS 1 EACH TAB PO SCH (10:41)
--- NOTE | 2021-03-13 11:31 | PN ---
PROGRESS NOTE Mrs. Dixon is an 81-year-old female who was admitted with symptoms of progressive dyspnea and peripheral edema. She is feeling better today. Her breathing is better. She denies any symptoms of chest pain. She denies any dizziness. She denies any palpitation. She had pain in her coccyx yesterday, better today. Hemodynamically, she has been stable. She underwent an x-ray of her sacrum and lumbar spine and free DV could show diffuse osteopenia. She continues to be at this time on furosemide 40 mg daily and Coumadin. PHYSICAL EXAMINATION: Blood pressure 112/70 with the heart in the 80s. LUNGS: Clear. HEART: Regular rate and rhythm S1, S2. No S3 with systolic murmur heard at the base. No diastolic murmur. No rub. ABDOMEN: Soft and nontender. EXTREMITIES: Trace edema. IMPRESSION: 1. Symptoms of congestive heart failure with progressive dyspnea, improving. 2. History of mitral regurgitation. 3. Paroxysmal atrial fibrillation. 4. Peripheral vascular disease, status post abdominal aortic repair. 5. History of lung cancer status post lobectomy. 6. Chronic kidney disease. RECOMMENDATION: From the cardiac standpoint I will continue present therapy. I will expect she should be able to be discharged home soon and followed as an outpatient. In looking at her overall status, I do not believe that she is a candidate for mitral valve intervention. MMODL / IJN: [id number] /
[2021-03-13 12:01] LABS: Glucose,Whole Blood 227 mg/dL (75-99)
[2021-03-13 16:38] LABS: Glucose,Whole Blood 159 mg/dL (75-99)
[2021-03-13] MEDS: CALCIUM CARB-VIT D 500 MG-5 MCG TAB PO SCH (17:45)
[2021-03-13] MEDS ORDERED: WARFARIN 0.5 MG TAB PO ONE (18:00)
[2021-03-13] MEDS ORDERED: traMADol 50 MG TAB PO PRN (18:37)
[2021-03-13 20:04] LABS: Glucose,Whole Blood 137 mg/dL (75-99)
[2021-03-13] MEDS: HYDROcodone/APAP 7.5-325MG 1 EACH TAB PO SCH (20:29)
--- NOTE | 2021-03-13 20:30 | PN ---
PROGRESS NOTE DATE OF SERVICE: 03/13/2021 INTERVAL HISTORY: This is an 81-year-old woman who was admitted with shortness of breath, possibly multifactorial, is being closely monitored. ECF rehab is being planned. No chest pain. No palpitations. No fever. The patient had sacral and coccyx ulcer and x-ray showed diffuse osteoporosis with no osteomyelitis. No chest pain. No palpitations. No fever. Lumbar x-ray was also done which showed retrolisthesis L3-4. No acute changes are noted. PHYSICAL EXAMINATION: GENERAL: Patient is alert and oriented times two. VITAL SIGNS: Pulse 87, blood pressure 102/69, respirations 20, temperature 98.3, pulse ox 95% on 2 liters. HEENT: Conjunctivae normal. Oral mucosa moist. NECK: No jugular venous distention. No carotid bruits. RESPIRATORY: Breath sounds diminished at the bases. Scattered rhonchi and crackles. HEART: S1 and S2, muffled. ABDOMEN: Soft, no tenderness. EXTREMITIES: No edema, no swelling. NERVOUS: No focal deficits. LAB STUDIES: WBC 10.2, hemoglobin 8.2, INR 3.1, sodium 134, creatinine 2.89. ASSESSMENT: 1. Shortness of breath possibly multifactorial with COPD acute exacerbation as well as congestive heart failure acute exacerbation with acute on chronic diastolic dysfunction ejection fraction 50-60%. 2. Possible acute purulent tracheobronchitis. 3. Increased WBC. 4. Anemia, normocytic. 5. Chronic kidney disease stage 3. 6. Troponin 0.05, chronic elevation of undetermined significance. 7. History of atrial fibrillation. 8. Osteoporosis. 9. COPD. 10.History of DVT. 11.Hypertension. 12.Hyperlipidemia. 13.History of pneumonia. 14.History of right lung cancer surgery. 15.Right pleural effusion. 16.History of nicotine dependence. 17.NO CODE, NO CPR, NO VENT. RECOMMENDATIONS AND DISCUSSION: Recommend to continue current management and continue symptomatic treatment. I would also recommend add vitamins to the current regimen also Os-Amanuel with vitamin D. Continue the rest of medications and antibiotic. Possible ECF rehab. Guarded prognosis. Further recommendations to follow. MMODL / IJN: [id number] /
[2021-03-13] MEDS: PHENAZOPYRIDINE 100 MG TAB PO PRN (20:48)
[2021-03-14] MEDS: IPRATROPIUM-ALBUTEROL 3 ML NEB INHALATION PRN (00:11)
[2021-03-14] MEDS: ALPRAZolam 0.25 MG TAB PO PRN ×2 (02:32→08:26)
[2021-03-14 06:17] LABS: Glucose,Whole Blood 102 mg/dL (75-99)
[2021-03-14] MEDS: INSULIN ASPART (NovoLOG) 100 UNIT/ML VIAL SQ SCH ×2 (06:19→11:39)
[2021-03-14] MEDS: PANTOPRAZOLE 40 MG TABLET PO SCH (06:33)
[2021-03-14] MEDS: CALCIUM CARB-VIT D 500 MG-5 MCG TAB PO SCH (06:33)
[2021-03-14] MEDS: FLUTICASONE 110 MCG INHALER INHALATION SCH (07:30)
[2021-03-14] MEDS: IPRATROPIUM-ALBUTEROL 3 ML NEB INHALATION SCH ×2 (07:30→10:46)
[2021-03-14 08:25] VITALS: BP 91/49; RESP 16; TEMP 98.5
[2021-03-14] MEDS: SENNOSIDES 8.6 MG TAB PO SCH (08:26)
[2021-03-14] MEDS: FERROUS SULFATE 325 MG TAB PO SCH (08:26)
[2021-03-14] MEDS: FUROSEMIDE 40 MG TAB PO SCH (08:26)
[2021-03-14] MEDS: SODIUM BICARBONATE TAB 650 MG TAB PO SCH (08:26)
[2021-03-14] MEDS: SODIUM CHLORIDE 0.9% 1,000 ML IV SCH (08:28)
[2021-03-14] MEDS: PHENAZOPYRIDINE 100 MG TAB PO PRN (08:32)
[2021-03-14 10:55] LABS: INR 2.3 (<1.2); Prothrombin Time 22.6 sec (9.0-12.0)
[2021-03-14 11:07] VITALS: PULSE 79
[2021-03-14 11:38] LABS: Glucose,Whole Blood 137 mg/dL (75-99)
[2021-03-14] MEDS ORDERED: MULTIVITAMINS, THERA 1 EACH TAB PO SCH (12:00)
[2021-03-14] MEDS ORDERED: FOLIC ACID 1 MG TAB PO SCH (12:00)
[2021-03-14] MEDS ORDERED: THIAMINE 100 MG TAB PO SCH (12:00)
--- NOTE | 2021-03-14 13:15 | P.DS ---
Providers Date of admission: 03/08/21 14:32 Expected date of discharge: 03/14/21 Attending physician: Ross Cahudhry MD Consults: 03/08/21 19:08 Consult Physician Routine Consulting Provider: Theo Salamanca Consult Reason/Comments: chf Do you want consulting provider notified?: Yes Consult Physician Routine Consulting Provider: Shannon Petersen Consult Reason/Comments: copd Do you want consulting provider notified?: Yes Primary care physician: Shannon Petersen Hospital Course: Final diagnosis Shortness of breath, possibly multifactorial with COPD acute exacerbation as wel l as congestive heart failure acute exacerbation with acute on chronic diastolic dysfunction ejection fraction 50-60% Possible acute purulent tracheobronchitis Increased white blood count Anemia, normocytic Chronic kidney disease stage III Troponin 0.05, chronic elevation of undetermined significance history of atrial fibrillation Osteoporosis COPD History of DVT hypertension Hyperlipidemia History of pneumonia history of right lung cancer surgery right pleural effusion history of nicotine dependence No code, no CPR, no vent Discharge disposition Patient is being discharged in a stable condition with guarded prognosis to [facility] for continued PT/OT therapy. Patient will follow-up with Dr. Huang in the outpatient setting upon discharge. Patient will follow-up with primary care provider Dr. Petersen in the outpatient setting. Patient also to follow-up with cardiology outpatient. Continue with Ceftin 500 mg twice daily for the next 3 days and then may discontinue. Recommend repeat labs to monitor CBC along with kidney functions and PT/INR as she is on Coumadin. Total time taken is greater than 35 minutes. Hospital course This is an 81-year-old female who was recently admitted with shortness of breath, possibly multifactorial secondary to COPD acute exacerbation along with CHF acute exacerbation and was being closely monitored. Patient being followed by cardiology along with pulmonary and will be following up outpatient. Patient continues to be weak and was evaluated by PT/OT therapy recommending rehab for continued PT/OT therapy and daughter who is her caregiver is agreeable to this with possible discussion of palliative versus hospice in the outpatient setting. Patient is on Coumadin and okay to resume his INR today is 2.3. Patient is also on IV antibiotics and will transition to oral Ceftin 500 mg twice daily for the next 3 days to complete the course. Recommending monitoring Accu-Cheks before meals and at bedtime and treat accordingly with sliding scale. Continue to encourage oral intake as oral intake continues to be poor and also continue with ensures 3 times a day with meals Currently no reports of chest pain, worsening shortness of breath, or palpitations. Patient is afebrile. No reports of nausea or vomiting and patient is tolerating diet. Patient will be going to [facility] on the [facility] today. Guarded prognosis secondary to multiple readmissions for this. On exam vital signs are stable. Cardio S1, S2 are muffled. Respiratory system shows diminished breath sounds at the bases with no wheezing or rhonchi noted. Abdomen is soft and obese, and nontender. Nervous system shows diffuse weakness. Please refer to medication reconciliation sheet for a list of medications. Patient Condition at Discharge: Fair Plan - Discharge Summary Discharge Rx Participant: Yes New Discharge Prescriptions: New Cefuroxime Axetil [Ceftin] 500 mg PO BID 3 Days #6 tab Lactulose [Cephulac] 20 gm PO DAILY PRN ml PRN Reason: Constipation Furosemide [Lasix] 40 mg PO DAILY tab Calcium Carb-Vit D 500Mg-5Mcg [Oscal 500+D 5 Mcg (200 Iu)] 1 each PO BID- W/MEALS tab Phenazopyridine [Pyridium] 100 mg PO TID PRN tab PRN Reason: urinary pain Folic Acid 1 mg PO DAILY@1200 tab Multivitamins, Thera [Multivitamin (formulary)] 1 each PO DAILY@1200 tab INSULIN ASPART (NovoLOG) [NovoLOG (formulary)] 0 unit SQ ACHS vial traMADol HCl [Ultram] 50 mg PO TID PRN #6 tab PRN Reason: Moderate Pain Thiamine [Vitamin B-1] 100 mg PO DAILY@1200 tab Continue calcitrioL [Rocaltrol] 0.25 mcg PO MOFR Vit C/E/Zn/Coppr/Lutein/Zeaxan [Preservision Areds 2 Softgel] 1 cap PO DAILY Ferrous Sulfate [Iron (65 MG Elemental)] 325 mg PO DAILY Darbepoetin Juaquin [Aranesp] 40 mcg SQ Q7D syringe calcium polycarbophiL [Fibercon] 625 mg PO DAILY 30 Days #30 tab Sennosides [Senokot] 8.6 mg PO DAILY 30 Days #30 tab Sodium Bicarbonate Tab 650 mg PO DAILY 30 Days #30 tab Ipratropium-Albuterol Nebulize [Duoneb 0.5 mg-3 mg/3 ml Soln] 3 ml INHALATION QID 30 Days #120 neb Budesonide [Pulmicort Flexhaler] 2 puff INHALATION RT-BID HYDROcodone/APAP 7.5-325MG [[place] 7.5-325] 1 tab PO HS #6 tab Ipratropium-Albuterol Nebulize [Duoneb 0.5 mg-3 mg/3 ml Soln] 3 ml INHALATION RT-QID PRN ml PRN Reason: Shortness Of Breath Acetaminophen Tab [Tylenol] 650 mg PO Q6HR PRN tab PRN Reason: Mild Pain Pantoprazole [Protonix] 40 mg PO AC-BRKFST #30 tablet. Warfarin Sodium [Jantoven] 2.5 - 5 mg PO DIRECTED #0 ALPRAZolam [Xanax] 0.25 mg PO QID PRN #12 tab PRN Reason: Anxiety Discontinued Furosemide [Lasix] 40 mg PO MOWEFR predniSONE See Taper PO DIRECTED Lactulose [Cephulac] 20 gm PO DAILY PRN 5 Days #150 ml PRN Reason: Constipation Discharge Medication List calcitrioL [Rocaltrol] 0.25 mcg PO MOFR 03/27/19 [History] Vit C/E/Zn/Coppr/Lutein/Zeaxan [Preservision Areds 2 Softgel] 1 cap PO DAILY 04/02/19 [History] Ferrous Sulfate [Iron (65 MG Elemental)] 325 mg PO DAILY 10/02/20 [History] Acetaminophen Tab [Tylenol] 650 mg PO Q6HR PRN tab 02/08/21 [Rx] Darbepoetin Juaquin [Aranesp] 40 mcg SQ Q7D syringe 02/08/21 [Rx] Ipratropium-Albuterol Nebulize [Duoneb 0.5 mg-3 mg/3 ml Soln] 3 ml INHALATION QID 30 Days #120 neb 02/08/21 [Rx] Ipratropium-Albuterol Nebulize [Duoneb 0.5 mg-3 mg/3 ml Soln] 3 ml INHALATION RT-QID PRN ml 02/08/21 [Rx] Sennosides [Senokot] 8.6 mg PO DAILY 30 Days #30 tab 02/08/21 [Rx] Sodium Bicarbonate Tab 650 mg PO DAILY 30 Days #30 tab 02/08/21 [Rx] calcium polycarbophiL [Fibercon] 625 mg PO DAILY 30 Days #30 tab 02/08/21 [Rx] Budesonide [Pulmicort Flexhaler] 2 puff INHALATION RT-BID 02/16/21 [History] Pantoprazole [Protonix] 40 mg PO AC-BRKFST #30 tablet.dr 02/22/21 [Rx] ALPRAZolam [Xanax] 0.25 mg PO QID PRN #12 tab 03/14/21 [Rx] Calcium Carb-Vit D 500Mg-5Mcg [Oscal 500+D 5 Mcg (200 Iu)] 1 each PO BID-W/MEALS tab 03/14/21 [Rx] Cefuroxime Axetil [Ceftin] 500 mg PO BID 3 Days #6 tab 03/14/21 [Rx] Folic Acid 1 mg PO DAILY@1200 tab 03/14/21 [Rx] Furosemide [Lasix] 40 mg PO DAILY tab 03/14/21 [Rx] HYDROcodone/APAP 7.5-325MG [[place] 7.5-325] 1 tab PO HS #6 tab 03/14/21 [Rx] INSULIN ASPART (NovoLOG) [NovoLOG (formulary)] 0 unit SQ ACHS vial 03/14/21 [Rx] Lactulose [Cephulac] 20 gm PO DAILY PRN ml 03/14/21 [Rx] Multivitamins, Thera [Multivitamin (formulary)] 1 each PO DAILY@1200 tab 03/14/21 [Rx] Phenazopyridine [Pyridium] 100 mg PO TID PRN tab 03/14/21 [Rx] Thiamine [Vitamin B-1] 100 mg PO DAILY@1200 tab 03/14/21 [Rx] Warfarin Sodium [Jantoven] 2.5 - 5 mg PO DIRECTED #0 03/14/21 [Rx] traMADol HCl [Ultram] 50 mg PO TID PRN #6 tab 03/14/21 [Rx] Follow up Appointment(s)/Referral(s): Shannon Petersen MD [Primary Care Provider] - 04/07/21 1:45 pm Gio David MD [STAFF PHYSICIAN] - 2 Weeks (The office will call you with apointment date and time.) Ambulatory/Diagnostic Orders: Complete Blood Count w/diff [LAB.AMB] Time Frame: 2 Days, Location: None Selected Activity/Diet/Wound Care/Special Instructions: Please set up palliative care Patient is going to [facility] on the [facility] Activity as tolerated Continue with oral Ceftin for the next 3 days and then may discontinue Continue Coumadin as INR is 2.3 and repeat labs in 2 days Repeat labs to monitor CBC, BMP, PT/INR Continue to monitor Accu-Cheks before meals and at bedtime and treat accordingly with sliding scale Continue heart healthy consistent carb diet NovoLog sliding scale 0-150 equals 0 units 151-200 equals 2 units 201-250 equals 4 units 251-300 equals 6 units 301-350 equals 8 units 351-400 equals 10 units Please notify provider if blood sugar is 400 or above Follow-up with primary care provider upon discharge Follow-up with pulmonary outpatient Follow-up with cardiology outpatient Family to discuss palliative and/or hospice outpatient Discharge Disposition: TRANSFER TO SNF/ECF
[2021-03-14] MEDS ORDERED: WARFARIN 2.5 MG TAB PO ONE (18:00)
== END 2021-03-14 16:11 | DRG 291 ==
LOC: EC 09:45 → 3SCARD 14:32
PROVIDERS: ADMIT Internal Medicine; ATTEND Internal Medicine
DX: I13.0 Hypertensive heart and chronic kidney disease with heart failure and stage 1 through stage 4 chronic kidney disease, or unspecified chronic kidney disease (principal); I50.33 Acute on chronic diastolic (congestive) heart failure; J96.21 Acute and chronic respiratory failure with hypoxia; N18.4 Chronic kidney disease, stage 4 (severe); J44.1 Chronic obstructive pulmonary disease with (acute) exacerbation; N17.9 Acute kidney failure, unspecified; Z85.118 Personal history of other malignant neoplasm of bronchus and lung; Z82.49 Family history of ischemic heart disease and other diseases of the circulatory system; Z84.1 Family history of disorders of kidney and ureter; I48.0 Paroxysmal atrial fibrillation; Z86.718 Personal history of other venous thrombosis and embolism; Z87.891 Personal history of nicotine dependence; D64.9 Anemia, unspecified; N18.30 Chronic kidney disease, stage 3 unspecified; E78.5 Hyperlipidemia, unspecified; Z87.01 Personal history of pneumonia (recurrent); Z20.822 Contact with and (suspected) exposure to COVID-19; M19.90 Unspecified osteoarthritis, unspecified site; M81.0 Age-related osteoporosis without current pathological fracture; E03.9 Hypothyroidism, unspecified; E11.22 Type 2 diabetes mellitus with diabetic chronic kidney disease; E11.51 Type 2 diabetes mellitus with diabetic peripheral angiopathy without gangrene; I34.0 Nonrheumatic mitral (valve) insufficiency; M43.16 Spondylolisthesis, lumbar region; L98.429 Non-pressure chronic ulcer of back with unspecified severity; R79.1 Abnormal coagulation profile; Z79.01 Long term (current) use of anticoagulants; Z79.51 Long term (current) use of inhaled steroids; Z82.5 Family history of asthma and other chronic lower respiratory diseases; Z83.3 Family history of diabetes mellitus; Z86.79 Personal history of other diseases of the circulatory system; Z99.81 Dependence on supplemental oxygen
CPT/HCPCS: 36415; 71045; 71046; 72100; 72220; 80048; 80053; 81001; 82550; 82728; 83540; 83550; 83605; 83735; 83880; 84145; 84484; 85025; 85027; 85610; 85730; 87040; 87635; 93005; 93306; 94640; 94760; 96374; 99285

== ENCOUNTER 2021-03-17 12:33 | Emergency (ER) | payer MEDICARE, BC ==
[2021-03-17 12:47] VITALS: PULSE 119; TEMP 97.1
--- NOTE | 2021-03-17 13:16 | ED ---
General Adult HPI - General Chief complaint: Shortness of Breath Stated complaint: SOB Time Seen by Provider: 03/17/21 12:35 Source: patient, EMS, RN notes reviewed, old records reviewed Mode of arrival: EMS Limitations: physical limitation - History of Present Illness Initial comments: This is an 81-year-old female who was sent to the emergency department with a history of lung cancer and anemia. halfway sent her in because her hemoglobin was 6.6 and they thought she needs a transfusion. Patient states she's here because she feels that she's a little more short of breath than normal. Patient denies any chest pain or palpitations. Patient denies any fever chills and states she has an occasional cough. Patient denies any abdominal pain patient denies nausea vomiting diarrhea. Patient denies any swelling to the legs or calf tenderness. Patient states her own primary now as she is a little short of breath but this time the patient was oxygenating 100% her temperature is 98.4. - Related Data Home Medications Medication Instructions Recorded Confirmed calcitrioL [Rocaltrol] 0.25 mcg PO MOFR 03/27/19 03/08/21 Vit C/E/Zn/Coppr/Lutein/Zeaxan 1 cap PO DAILY 04/02/19 03/08/21 [Preservision Areds 2 Softgel] Ferrous Sulfate [Iron (65 MG 325 mg PO DAILY 10/02/20 03/08/21 Elemental)] Budesonide [Pulmicort Flexhaler] 2 puff INHALATION RT-BID 02/16/21 03/08/21 Previous Rx's Medication Instructions Recorded Acetaminophen Tab [Tylenol] 650 mg PO Q6HR PRN tab 02/08/21 Darbepoetin Juaquin [Aranesp] 40 mcg SQ Q7D syringe 02/08/21 Ipratropium-Albuterol Nebulize 3 ml INHALATION QID 30 Days #120 02/08/21 [Duoneb 0.5 mg-3 mg/3 ml Soln] neb Ipratropium-Albuterol Nebulize 3 ml INHALATION RT-QID PRN ml 02/08/21 [Duoneb 0.5 mg-3 mg/3 ml Soln] Sennosides [Senokot] 8.6 mg PO DAILY 30 Days #30 tab 02/08/21 Sodium Bicarbonate Tab 650 mg PO DAILY 30 Days #30 tab 02/08/21 calcium polycarbophiL [Fibercon] 625 mg PO DAILY 30 Days #30 tab 02/08/21 Pantoprazole [Protonix] 40 mg PO ROBYN-LEXIE #30 tablet. 02/22/21 ALPRAZolam [Xanax] 0.25 mg PO QID PRN #12 tab 03/14/21 Calcium Carb-Vit D 500Mg-5Mcg 1 each PO BID-W/MEALS tab 03/14/21 [Oscal 500+D 5 Mcg (200 Iu)] Cefuroxime Axetil [Ceftin] 500 mg PO BID 3 Days #6 tab 03/14/21 Folic Acid 1 mg PO DAILY@1200 tab 03/14/21 Furosemide [Lasix] 40 mg PO DAILY tab 03/14/21 HYDROcodone/APAP 7.5-325MG [[place] 1 tab PO HS #6 tab 03/14/21 7.5-325] INSULIN ASPART (NovoLOG) [NovoLOG 0 unit SQ ACHS vial 03/14/21 (formulary)] Lactulose [Cephulac] 20 gm PO DAILY PRN ml 03/14/21 Multivitamins, Thera [Multivitamin 1 each PO DAILY@1200 tab 03/14/21 (formulary)] Phenazopyridine [Pyridium] 100 mg PO TID PRN tab 03/14/21 Thiamine [Vitamin B-1] 100 mg PO DAILY@1200 tab 03/14/21 Warfarin Sodium [Jantoven] 2.5 - 5 mg PO DIRECTED #0 03/14/21 traMADol HCl [Ultram] 50 mg PO TID PRN #6 tab 03/14/21 Allergies Allergy/AdvReac Type Severity Reaction Status Date / Time No Known Allergies Allergy Verified 03/08/21 13:08 Review of Systems ROS Statement: Those systems with pertinent positive or pertinent negative responses have been documented in the HPI. ROS Other: All systems not noted in ROS Statement are negative. Past Medical History Past Medical History: Atrial Fibrillation, Cancer, COPD, Deep Vein Thrombosis (DVT), Eye Disorder, Hyperlipidemia, Hypertension, Osteoarthritis (OA), Pneumonia, Renal Disease, Thyroid Disorder Additional Past Medical History / Comment(s): Pt recently admitted to [facility] on 01/29/21 with exacerbation COPD/tracheobronchitis. Other hx: 2019 diagnosed with R lung cancer and had surgery, pneumonia with sepsis, home oxygen ATC, DVT L arm with surgery, CKD stage III, chronic anemia, diverticular disease, bilateral macular degeneration, bilateral lower leg edema, past gout, valvular disease. History of Any Multi-Drug Resistant Organisms: None Reported Past Surgical History: Tubal Ligation Additional Past Surgical History / Comment(s): L arm thromboembolectomy, endurant abdominal stent graft feb 28 2016, thorascopic R wedge resection, colonoscopy, bilateral cataract removals Past Anesthesia/Blood Transfusion Reactions: Previous Problems w/ Anesthesia, Family History of Problems w/ Anesthesia Additional Past Anesthesia/Blood Transfusion Reaction / Comment(s): Slow to Awaken, patient and daughter. Past Psychological History: No Psychological Hx Reported Additional Psychological History / Comment(s): Pt resides with her louann. Pt has home care set up thru [facility]. She uses a 4 wheeled walker. She has home oxygen and a nebulizer. Smoking Status: Former smoker Past Alcohol Use History: None Reported Additional Past Alcohol Use History / Comment(s): Smoked 48 years, Quit 2008 Past Drug Use History: None Reported - Past Family History Father Family Medical History: COPD, Diabetes Mellitus, Myocardial Infarction ([place]) Mother History Unknown: Yes Additional Family Medical History / Comment(s): at age 31 - cause unknown Brother(s) Family Medical History: Respiratory Disorder Additional Family Medical History / Comment(s): states kidney and heart history Sister(s) Family Medical History: Myocardial Infarction ([place]), Renal Disease Additional Family Medical History / Comment(s): dialysis General Exam - General Exam Comments Initial Comments: GENERAL: Patient is well-developed and well-nourished. Patient is nontoxic and well- hydrated and is in no acute distress. ENT: Neck is soft and supple. No significant lymphadenopathy is noted. Oropharynx is clear. Moist mucous membranes. Neck has full range of motion without eliciting any pain. EYES: The sclera were anicteric and conjunctiva were pink and moist. Extraocular movements were intact and pupils were equal round and reactive to light. Eyelids were unremarkable. PULMONARY: Unlabored respirations. Good breath sounds bilaterally. No audible rales rhonchi or wheezing was noted. CARDIOVASCULAR: Patient is tachycardic at about 120 beats a minute ABDOMEN: Soft and nontender with normal bowel sounds. e mass. SKIN: Skin is clear with no lesions or rashes and otherwise unremarkable. NEUROLOGIC: Patient is alert and oriented x3. Cranial nerves II through XII are grossly intact. Motor and sensory are also intact. Normal speech, volume and content. Symmetrical smile. MUSCULOSKELETAL: Normal extremities with adequate strength and full range of motion. No lower extremity swelling or edema. No calf tenderness. LYMPHATICS: No significant lymphadenopathy is noted PSYCHIATRIC: Normal psychiatric evaluation. Limitations: physical limitation Course Vital Signs 03/17/21 03/17/21 12:35 12:58 Temperature 97.1 F L Pulse Rate 119 H Respiratory 22 Rate Blood Pressure 111/55 O2 Sat by Pulse 100 Oximetry Medical Decision Making - Medical Decision Making EKG shows sinus tachycardia with occasional PAC at 117 LA interval is 162 QRS is 88 QT interval is 326 QTC is 454. EKG shows no ST segment elevation or depression Patient is actually 100% and is in no distress emergency Department her lab values are unchanged from her previous visit her hemoglobin 7.9. - Lab Data Result diagrams: 03/17/21 13:11 03/17/21 13:11 Lab Results 03/17/21 03/17/21 03/17/21 Range/Units 13:11 13:11 13:11 WBC 9.5 (3.8-10.6) k/uL RBC 2.65 L (3.80-5.40) m/uL Hgb 7.9 L (11.4-16.0) gm/dL Hct 25.2 L (34.0-46.0) % MCV 94.8 (80.0-100.0) fL MCH 29.8 (25.0-35.0) pg MCHC 31.4 (31.0-37.0) g/dL RDW 15.9 H (11.5-15.5) % Plt Count 403 (150-450) k/uL MPV 7.7 Neutrophils % 76 % Lymphocytes % 15 % Monocytes % 6 % Eosinophils % 2 % Basophils % 0 % Neutrophils # 7.2 (1.3-7.7) k/uL Lymphocytes # 1.4 (1.0-4.8) k/uL Monocytes # 0.6 (0-1.0) k/uL Eosinophils # 0.2 (0-0.7) k/uL Basophils # 0.0 (0-0.2) k/uL Hypochromasia Slight PT 23.5 H (9.0-12.0) sec INR 2.4 H (<1.2) APTT 33.4 H (22.0-30.0) sec Sodium 137 (137-145) mmol/L Potassium 4.0 (3.5-5.1) mmol/L Chloride 88 L (98-107) mmol/L Carbon Dioxide 41 H* (22-30) mmol/L Anion Gap 8 mmol/L BUN 95 H (7-17) mg/dL Creatinine 3.60 H (0.52-1.04) mg/dL Est GFR (CKD-EPI)AfAm 13 (>60 ml/min/1.73 sqM) Est GFR (CKD-EPI)NonAf 11 (>60 ml/min/1.73 sqM) Glucose 92 (74-99) mg/dL Plasma Lactic Acid Micky (0.7-2.0) mmol/L Calcium 8.9 (8.4-10.2) mg/dL Magnesium 2.7 H (1.6-2.3) mg/dL Total Bilirubin 0.5 (0.2-1.3) mg/dL AST 22 (14-36) U/L ALT 10 (4-34) U/L Alkaline Phosphatase 50 (38-126) U/L Troponin I (0.000-0.034) ng/mL NT-Pro-B Natriuret Pep pg/mL Total Protein 5.6 L (6.3-8.2) g/dL Albumin 2.8 L (3.5-5.0) g/dL Blood Type Recheck Bld Type Recheck Status Spec Expiration Date 03/17/21 03/17/21 03/17/21 Range/Units 13:11 13:11 13:11 WBC (3.8-10.6) k/uL RBC (3.80-5.40) m/uL Hgb (11.4-16.0) gm/dL Hct (34.0-46.0) % MCV (80.0-100.0) fL MCH (25.0-35.0) pg MCHC (31.0-37.0) g/dL RDW (11.5-15.5) % Plt Count (150-450) k/uL MPV Neutrophils % % Lymphocytes % % Monocytes % % Eosinophils % % Basophils % % Neutrophils # (1.3-7.7) k/uL Lymphocytes # (1.0-4.8) k/uL Monocytes # (0-1.0) k/uL Eosinophils # (0-0.7) k/uL Basophils # (0-0.2) k/uL Hypochromasia PT (9.0-12.0) sec INR (<1.2) APTT (22.0-30.0) sec Sodium (137-145) mmol/L Potassium (3.5-5.1) mmol/L Chloride (98-107) mmol/L Carbon Dioxide (22-30) mmol/L Anion Gap mmol/L BUN (7-17) mg/dL Creatinine (0.52-1.04) mg/dL Est GFR (CKD-EPI)AfAm (>60 ml/min/1.73 sqM) Est GFR (CKD-EPI)NonAf (>60 ml/min/1.73 sqM) Glucose (74-99) mg/dL Plasma Lactic Acid Micky 1.2 (0.7-2.0) mmol/L Calcium (8.4-10.2) mg/dL Magnesium (1.6-2.3) mg/dL Total Bilirubin (0.2-1.3) mg/dL AST (14-36) U/L ALT (4-34) U/L Alkaline Phosphatase (38-126) U/L Troponin I 0.040 H* (0.000-0.034) ng/mL NT-Pro-B Natriuret Pep 3940 pg/mL Total Protein (6.3-8.2) g/dL Albumin (3.5-5.0) g/dL Blood Type Recheck Bld Type Recheck Status Spec Expiration Date 03/17/21 Range/Units 13:33 WBC (3.8-10.6) k/uL RBC (3.80-5.40) m/uL Hgb (11.4-16.0) gm/dL Hct (34.0-46.0) % MCV (80.0-100.0) fL MCH (25.0-35.0) pg MCHC (31.0-37.0) g/dL RDW (11.5-15.5) % Plt Count (150-450) k/uL MPV Neutrophils % % Lymphocytes % % Monocytes % % Eosinophils % % Basophils % % Neutrophils # (1.3-7.7) k/uL Lymphocytes # (1.0-4.8) k/uL Monocytes # (0-1.0) k/uL Eosinophils # (0-0.7) k/uL Basophils # (0-0.2) k/uL Hypochromasia PT (9.0-12.0) sec INR (<1.2) APTT (22.0-30.0) sec Sodium (137-145) mmol/L Potassium (3.5-5.1) mmol/L Chloride (98-107) mmol/L Carbon Dioxide (22-30) mmol/L Anion Gap mmol/L BUN (7-17) mg/dL Creatinine (0.52-1.04) mg/dL Est GFR (CKD-EPI)AfAm (>60 ml/min/1.73 sqM) Est GFR (CKD-EPI)NonAf (>60 ml/min/1.73 sqM) Glucose (74-99) mg/dL Plasma Lactic Acid Micky (0.7-2.0) mmol/L Calcium (8.4-10.2) mg/dL Magnesium (1.6-2.3) mg/dL Total Bilirubin (0.2-1.3) mg/dL AST (14-36) U/L ALT (4-34) U/L Alkaline Phosphatase (38-126) U/L Troponin I (0.000-0.034) ng/mL NT-Pro-B Natriuret Pep pg/mL Total Protein (6.3-8.2) g/dL Albumin (3.5-5.0) g/dL Blood Type Recheck No Previous Record Bld Type Recheck Status CABO Indicated Spec Expiration Date 03/20/20212332 Disposition Clinical Impression: Chronic anemia Disposition: HOME SELF-CARE Instructions (If sedation given, give patient instructions): Anemia (ED) Is patient prescribed a controlled substance at d/c from ED?: No Referrals: Shannon Petersen MD [Primary Care Provider] - 1-2 days Time of Disposition: 14:55
[2021-03-17 13:30] LABS: Basophils % (A) 0 %; Eosinophils # (A) 0.2 k/uL (0-0.7); Eosinophils % (A) 2 %; HCT 25.2 % (34.0-46.0); HGB 7.9 gm/dL (11.4-16.0); Hypochromasia Slight; Lymphocytes # (A) 1.4 k/uL (1.0-4.8); Lymphocytes % (A) 15 %; MCH 29.8 pg (25.0-35.0); MCHC 31.4 g/dL (31.0-37.0); MCV 94.8 fL (80.0-100.0); Mean Platelet Volume 7.7; Monocytes # (A) 0.6 k/uL (0-1.0); Monocytes % (A) 6 %; Neutrophils # (A) 7.2 k/uL (1.3-7.7); Neutrophils % (A) 76 %; Platelet Count 403 k/uL (150-450); RBC 2.65 m/uL (3.80-5.40); RDW 15.9 % (11.5-15.5); WBC 9.5 k/uL (3.8-10.6)
[2021-03-17 13:39] LABS: Albumin 2.8 g/dL (3.5-5.0); Calcium 8.9 mg/dL (8.4-10.2); Magnesium 2.7 mg/dL (1.6-2.3); Total Bilirubin 0.5 mg/dL (0.2-1.3); Total Protein 5.6 g/dL (6.3-8.2)
[2021-03-17 13:46] LABS: INR 2.4 (<1.2); Partial Thromboplastin Time 33.4 sec (22.0-30.0); Prothrombin Time 23.5 sec (9.0-12.0)
--- NOTE | 2021-03-17 13:57 | XR ---
EXAMINATION TYPE: XR chest 2V DATE OF EXAM: 03/17/2021 COMPARISON: Chest x-ray 1 week ago. HISTORY: Difficulty in breathing TECHNIQUE: Frontal and lateral views of the chest are obtained. FINDINGS: There are chronic reticular nodular parenchymal changes bilaterally redemonstrated. Multi ple tiny bilateral pleural effusions redemonstrated. The cardiac silhouette size is stable and mildly enlarged with atherosclerotic aorta. Mass effect on trachea causing right-sided deviation redemonst rated. The osseous structures are demineralized. IMPRESSION: Chronic parenchymal changes with small to tiny bilateral pleural effusions and cardiomeg franky all redemonstrated. No significant change from prior. No new acute focal infiltrate.
[2021-03-17 15:19] VITALS: BP 125/53; RESP 16
== END 2021-03-17 16:45 | disposition home or self-care (01) ==
LOC: EC 12:33
DX: I12.9 Hypertensive chronic kidney disease with stage 1 through stage 4 chronic kidney disease, or unspecified chronic kidney disease (principal); N18.30 Chronic kidney disease, stage 3 unspecified; D63.1 Anemia in chronic kidney disease; R06.02 Shortness of breath; J44.9 Chronic obstructive pulmonary disease, unspecified; M19.90 Unspecified osteoarthritis, unspecified site; E78.5 Hyperlipidemia, unspecified; I48.91 Unspecified atrial fibrillation; Z86.718 Personal history of other venous thrombosis and embolism; Z85.118 Personal history of other malignant neoplasm of bronchus and lung; Z87.891 Personal history of nicotine dependence; Z79.51 Long term (current) use of inhaled steroids; Z79.01 Long term (current) use of anticoagulants
CPT/HCPCS: 36415; 71046; 80053; 83605; 83735; 83880; 84484; 85025; 85610; 85730; 86850; 86900; 86901; 93005; 99285